=== PATIENT | male | born 1950 | race Caucasian/White ===

== ENCOUNTER 2019-09-25 08:30 | Outpatient (CLI) | payer MEDICARE, SELFPAY ==
--- NOTE | ~2019-09-25 | CT_ITS ---
EXAMINATION: CT soft tissue neck chest w EXAM DATE: 09/25/2019 09:13 INDICATION: Hodgkin's lymphoma. TECHNIQUE: Spiral CT of the neck and chest was performed following intravenous injection of 75 mL Omn ipaque 350. Axial, coronal and sagittal images of the neck were reviewed. Axial, coronal and sagitt al images of the chest were reviewed. Coronal maximum intensity pixel images of chest reviewed. The dose-length product (DLP) for this examination was 1219.38 mGy-cm. The exposure was tailored accord ing to patient size (auto mA exposure control), and iterative reconstruction (ASIR) was used as addit ional dose reduction technique. There is no prior study for comparison. FINDINGS: NECK: The thyroid gland is unremarkable. The submandibular and parotid glands are symmetric. The re is no cervical lymphadenopathy. There are no masses identified. The airway is unremarkable. Parapharyngeal and pre-glottic fat planes are preserved. The opacified vasculature is patent. There is mild bilateral carotid bulb arterial sclerosis without stenosis. The orbits are unremarkable. Small maxillary sinus mucous retention cysts. There is cervical spondylosis. CHEST: Ascending aortic aneurysm, measuring up to 5.2 cm, stable. Small regions of scarring. There ar e no pleural or pericardial effusions. Tracheobronchial tree is patent. There is development of e nlarged left-sided supraclavicular lymph node measuring 2.0 x 2.1 cm. There is left axillary lymphade nopathy, with largest node measuring 2.6 x 2.3 cm, not significantly changed, but there are several o ther left axillary lymph nodes which mildly larger than on prior study. There is a left subpectoral l ymph node measuring 2.0 x 1.8 cm (was 2.2 x 1.1). There is no pneumothorax. There is mild cardiome judi. There are dense coronary arteries, could be severe coronary arterial sclerosis and/or coronary artery stent(s), which are difficult to distinguish due to cardiac motion on this non-gated exam. Co rrelate with cardiac history and consider cardiology consult if not recently evaluated. Mild bronchie ctasis. Upper abdomen is unremarkable. Patient has diffuse idiopathic skeletal hyperostosis (DISH) . There are no osteoblastic or osteolytic lesions identified. There is a right-sided Chemo-Port. IMPRESSION: 1. Development of left supraclavicular lymphadenopathy. Mild progression in left axillary, subpector al lymphadenopathy. 2. No cervical lymphadenopathy. 3. Chronic findings. Reviewed, dictated and finalized at location B. IMPRESSION: 1. Development of left supraclavicular lymphadenopathy. Mild progression in le ft axillary, subpectoral lymphadenopathy. 2. No cervical lymphadenopathy. 3. Chronic findings.
[2019-09-25 09:07] LABS: Estimated Glomerular Filt Rate > 60
== END 2019-09-25 08:31 | disposition home or self-care (01) ==
LOC: ANHIMG 08:34
PROVIDERS: PCP Internal Medicine; Visit Provider Internal Medicine Hematology & Oncology
DX: C81.14 Nodular sclerosis Hodgkin lymphoma, lymph nodes of axilla and upper limb (principal)
CPT/HCPCS: 36415; 70491; 71260; Q9967

== ENCOUNTER 2019-11-09 10:45 | Outpatient (CLI) | payer MEDICARE, SELFPAY ==
--- NOTE | ~2019-11-09 | PE_ITS ---
EXAMINATION: PET skull to mid thigh DATE: 11/09/2019 12:27 INDICATION: Nodular sclerosis. Hodgkin's lymphoma. TECHNIQUE: Blood glucose level was 107 mg/dL. 9.947 mCi of 18-fluorodeoxyglucose (18-FDG) was adminis tered i.v. Low dose computed tomography (CT) images were acquired from the base of the brain to the p roximal thighs for attenuation correction and anatomic localization. Positron emission tomography (PE T) images were acquired in the same distribution beginning 50 minutes after injection. Images includi ng fused PET/CT images were reconstructed in axial, coronal, and sagittal planes. Automated exposure control technique was employed. The dose-length product was 754.46mGy-cm. COMPARISON: 06/06/2019 FINDINGS: Head/neck: There is symmetric increased activity in the nasal and oral cavities, parotid glands, submandibular glands, laryngeal muscles and ocular muscles without CT correlate, likely physiologic. No pathologica lly enlarged cervical lymphadenopathy or suspicious foci of increased FDG uptake in the visualized he ad or neck. Chest: Right internal jugular central venous port catheter with distal tip at the superior cavoatrial juncti on. Small calcified nodule in the left upper lobe consistent with old granulomatous disease. Elevatio n of the left hemidiaphragm with mild discoid atelectasis at the basilar left lower lobe. The prior s mall region of consolidation with mild increased FDG uptake in the anterobasilar segment of the right lower lobe has resolved. No suspicious pulmonary nodules, pneumonia, pulmonary edema or other pulmon janice infiltrates. Cardiomegaly. Atherosclerotic coronary artery calcification is. No pericardial or pl eural effusion. 5.9 x 5.6 cm fusiform ascending thoracic aortic aneurysm. Again seen are a few enlarg ed left axillary and subpectoral lymph nodes, the largest previously 3.1 x 2.2 cm left axillary lymph node has decreased slightly to 2.9 x 2.0 cm with decreased now negligible FDG activity with maximal SUV of 1.3 which remain significantly lower than that of liver with maximal SUV of 3.2. The largest l eft subpectoral lymph node has decreased from 2.0 x 1.2 cm to currently measuring 1.8 x 1.0 cm with s imilar negligible FDG uptake. No new, enlarging or abnormal FDG avid thoracic lymphadenopathy. Bilate ral gynecomastia. Abdomen/pelvis/proximal thighs: Physiologic renal accumulation and excretion of FDG activity in the kidneys, bladder and along portio ns of ureters. Bilateral low-attenuation renal cysts without FDG activity measuring up to 4.2 cm in m aximal diameter on the right and 4.8 cm of a bilobed cyst at the left kidney. Normal degree and heter ogenous pattern of increased uptake throughout the liver without radiologic correlate or dominant FDG avid lesion. Tiny high attenuation gallstones layering in the dependent aspect of the normal-appeari ng gallbladder. A few splenic calcifications consistent with old granulomatous disease. Pancreas and bilateral adrenal glands are normal. Mild scattered colonic diverticulosis without adjacent inflammat ory change to suggest diverticulitis. Mild uptake scattered throughout the bowels without radiologic correlate, also likely physiologic. Prostatomegaly. No other abnormal foci of increased FDG uptake or pathologically enlarged lymphadenopathy in the abdomen, pelvis or proximal thighs. Musculoskeletal: Right total hip arthroplasty. There are bridging osteophytes at multiple levels in the spine, consist ent with diffuse idiopathic skeletal hyperostosis (DISH). Now healed anterior right eighth rib fractu re. No suspicious lytic, blastic or FDG avid bone lesions. IMPRESSION: 1. Continued slight decrease in size and now negligible FDG activity associated with several enlarged left axillary and subpectoral lymph nodes consistent with treated lymphoma. 2. Resolution of prior airspace disease with mild FDG activity in the
[2019-11-09 11:01] LABS: Glucose Point of Care 107 (65-105)
== END 2019-11-09 10:46 | disposition home or self-care (01) ==
LOC: ANHIMG 10:49
PROVIDERS: PCP Internal Medicine; Visit Provider Internal Medicine Hematology & Oncology
DX: C81.14 Nodular sclerosis Hodgkin lymphoma, lymph nodes of axilla and upper limb (principal); I71.2 Thoracic aortic aneurysm, without rupture
CPT/HCPCS: 78815; A9552

== ENCOUNTER 2020-05-20 09:08 | Outpatient (CLI) | payer MEDICARE, SELFPAY ==
--- NOTE | ~2020-05-20 | CT_ITS ---
EXAMINATION: CT chest w con EXAM DATE: 05/20/2020 09:40 INDICATION: Hodgkin's lymphoma of the axilla. TECHNIQUE: Spiral CT of the chest following intravenous injection of 75 mL Omnipaque 350. Axial, cor onal and sagittal images were reviewed. Coronal maximum intensity pixel images of chest reviewed. T he dose-length product (DLP) for this examination was 213.89 mGy-cm. The exposure was tailored accor ding to patient size (auto mA exposure control), and iterative reconstruction (ASIR) was used as reddy tional dose reduction technique. Comparison is made to prior examination from 11/09/2019. FINDINGS: The lungs are clear. There are no pleural or pericardial effusions. Tracheobronchial t ree is patent. Left axillary, subpectoral lymph nodes again identified, largest today measuring 2.5 x 1.9 cm (previous largest node 2.7 x 2.0 cm). The ascending aorta at the arch is dilated at 5.3 cm, unchanged. There is no pneumothorax. Heart normal in size. There is moderate coronary arterial calcification, arterial sclerosis. Upper abdomen is unremarkable. Diffuse idiopathic skeletal hype rostosis. IMPRESSION: 1. Stable left axillary lymphadenopathy. 2. Stable aortic arch 5.3 cm aneurysm. Reviewed, dictated and finalized at location A. LIANCE TESTER
== END 2020-05-20 09:09 | disposition home or self-care (01) ==
PROVIDERS: PCP Internal Medicine; Visit Provider Internal Medicine Hematology & Oncology
DX: C81.14 Nodular sclerosis Hodgkin lymphoma, lymph nodes of axilla and upper limb (principal); I71.4 Abdominal aortic aneurysm, without rupture
CPT/HCPCS: 71260; Q9967

== ENCOUNTER 2020-09-05 11:14 | Outpatient (CLI) | payer MEDICARE, SELFPAY ==
--- NOTE | ~2020-09-05 | CT_ITS ---
EXAMINATION: CT brain wo con DATE: 09/05/2020 11:36 INDICATION: Slurred speech. TECHNIQUE: Computed tomography (CT) of the head was performed without intravenous contrast. The mA wa s adjusted according to patient size. Iterative reconstruction technique was employed. The dose-lengt h product was 605.33 mGy-cm. COMPARISON: None FINDINGS: There are scattered areas of low attenuation in the cerebral white matter, which is within normal limits for the patient's age. There is no intracranial hemorrhage, acute infarction, or abnorm al intracranial mass lesion. The ventricles are normal in size. There is mild mucosal thickening in t he paranasal sinuses. There are likely changes of ocular lens replacement surgeries. The mastoid air cells are normal. IMPRESSION: 1. Normal aging brain. Reviewed, dictated and finalized at location A. IMPRESSION: 1. Normal aging brain.
--- NOTE | ~2020-09-05 | US_ITS ---
EXAMINATION: US carotid duplex BI DATE: 09/05/2020 11:54 INDICATION: Speech deficit. Transient cerebral ischemic attack. TECHNIQUE: Grayscale, color Doppler, and pulsed Doppler images of the cervical carotid arteries were obtained. The degree of vessel stenosis is placed in one of the following categories: normal, <50%, 5 0-69%, >=70% but less than near-occlusion, near-occlusion, or total occlusion. Note that percent sten osis relative to normal distal artery lumen diameter is indirectly measured from velocity measurement s as described by Mario, et al. Radiology 2003; [id number]:340-346. COMPARISON: None. FINDINGS: RIGHT: The right common carotid artery (CCA) peak systolic velocity (PSV) is 109 cm/s. The right internal ca rotid artery (ICA) PSV is 67 cm/s. The right ICA end-diastolic velocity (EDV) is 19 cm/s. The right I CA/CCA PSV ratio is 0.6. Grayscale and color Doppler images yield an estimate of <50% diameter reduct ion from plaque in the ICA. There is antegrade flow in the right vertebral artery. LEFT: The left CCA PSV is 105 cm/s. The left ICA PSV is 52 cm/s. The left ICA EDV is 15 cm/s. The left ICA/ CCA PSV ratio is 0.6. Grayscale and color Doppler images yield an estimate of <50% diameter reduction from plaque in the ICA. There is antegrade flow in the left vertebral artery. IMPRESSION: 1. <50% stenosis in the right internal carotid artery. 2. <50% stenosis in the left internal carotid artery. Reviewed, dictated and finalized at location A.
== END 2020-09-05 11:15 | disposition home or self-care (01) ==
LOC: ANHIMG 11:15
PROVIDERS: PCP Internal Medicine; Visit Provider Internal Medicine
DX: I65.23 Occlusion and stenosis of bilateral carotid arteries (principal)
CPT/HCPCS: 70450; 93880

== ENCOUNTER → 2020-09-23 00:16 | Outpatient (CLI) | payer MEDICARE, SELFPAY ==
[2020-09-23 19:29] LABS: SARS-CoV-2 RNA PCR Negative
== END ==
PROVIDERS: PCP Internal Medicine; Visit Provider Internal Medicine Critical Care Medicine
DX: Z01.812 Encounter for preprocedural laboratory examination (principal); Z20.822 Contact with and (suspected) exposure to COVID-19
CPT/HCPCS: C9803; U0003; U0005

== ENCOUNTER 2020-09-25 09:12 | Outpatient (CLI) | payer MEDICARE, SELFPAY ==
--- NOTE | 2020-10-11 16:43 | WPDSLEEPSTUD ---
Sleep Study Date of Study: 09/25/20 Ordering Provider: Mike Yu MD Interpreting Physician: Yanci Rios MD Sleep Study Type: CPAP Titration Height: 1.8 m Weight: 81.647 kg Body Mass Index: 25.1 Neck Circumference (inches): 16 [place]: 16 Reason for Sleep Study He presents now for CPAP titration with history of sleep studies below: 06/10/2020 Home sleep test after 30 lb wt loss; AHI 7.7 with device left on 10 hours (decreases the AHI) lowest saturation 40%and 52 minutes below 88% saturation. 09/30/2016 - split night; severe JONAH with AHI 65.9, lowest saturation 79%, optimal pressure 12 cm 02/08/2001 - Basic nocturnal polysomnogram after he was on CPAP, and had lost 100 lb; RDI was 20, lowest sat 85% He has had JONAH prior to 2000 Sleep History Og Beaver is a 70 yo man with JONAH on CPAP, has lost 30 lb in the last year, wants to know if he still needs to use his CPAP. He does not like to use it. He does frequently snore but he does not know if he snores loudly because he lives alone. He does not awaken from sleep feeling short of breath, does not awake with heartburn, belching or coughing, and he does not have trouble sleeping with a cold. He does not wake up gasping for breath at night, does not have breathing problems at night observed by others and does not sweat excessively at night. He rarely notices his heart pounding at night. He does not fall asleep during the day, does not fall asleep involuntarily, and does not fall asleep while driving or while exerting physical effort. He does not have loss of muscle tone with strong emotion. He does not have daytime difficulties due to excessive sleepiness. He is currently retired. He does not feel paralyzed on waking or falling asleep. He rarely has vivid dreamlike scenes upon awakening or falling asleep. He is never afraid to go to sleep. He does not have nightmares. He rarely remembers his dreams. He frequently has racing thoughts, feelings of sadness and depression. He constantly feels anxiety. He does not have muscular tension. He rarely notices parts of his body jerking at night. He does not kick at night. He denies having crawling and aching feelings in his legs at night. He had never has leg pain during the night and does not have morning jaw pain he does not grind his teeth during sleep. He occasionally is bothered by pain during the day. He does not wake up at night due to pain. He occasionally wakes up feeling stiff in the morning. He does not wake up with sore or achy muscles or pain in the neck and spine. He has panic, memory problems, concentration difficulties, depression and he takes and acids regularly. Normal bedtime is midnight, falling asleep within 15 minutes, waking once to urinate. He stays awake for 5-10 minutes. He wakes the morning between 9 and 10:00 a.m.. Weekend schedule is the same. He does not take naps. He feels better in the evening compared to the morning. He often awakens feeling refreshed. Habits: He never smoked tobacco. No caffeine, alcohol, or recreational drugs. 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
[2020-10-11 16:45] VITALS: BMI 25.1
== END 2020-09-25 09:13 | disposition home or self-care (01) ==
LOC: ANHCSM 09:12
PROVIDERS: PCP Internal Medicine; Visit Provider Internal Medicine
DX: G47.33 Obstructive sleep apnea (adult) (pediatric) (principal); Z79.899 Other long term (current) drug therapy; Z79.82 Long term (current) use of aspirin
CPT/HCPCS: 95811

== ENCOUNTER 2021-02-07 08:28 | Outpatient (CLI) | payer MEDICARE, SELFPAY ==
--- NOTE | ~2021-02-07 | CT_ITS ---
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 Automated exposure control and iterative reconstruction technique were employed. Exam dose: 415.07 mGy-cm total exam DLP. COMPARISON: 05/20/2020 CT chest 04/12/2018 CTA chest FINDINGS: Right Port-A-Cath catheter tip in superior vena cava. Stable mild right subareolar soft tissue density on the right consistent with gynecomastia, present s nicole 04/12/2018. Ascending aortic aneurysm measuring up to 5.4 cm compared to approximately 5.1 cm on 04/12/2018. Extensive coronary artery calcification. Cardiomegaly. No pericardial or pleural effusion. No hilar or mediastinal mass lesion or lymphadenopathy. There are 2 prominent left axillary lymph nodes measuring up to 20 x 25 mm and 13 x 21 mm. There is d iminished left axillary lymphadenopathy since 04/12/2018, including diminished size and number of enl arged lymph nodes. The largest left axillary lymph node on 04/12/2018 measuring up to approximately 2 .3 x 3.4 cm. Minimal atelectasis at the lung bases. The lungs are clear of infiltrate or consolidation or pulmonar y mass lesion. Right foramen of [place] fat-containing hernia. Very small sliding hiatal hernia. Bilateral upper pole renal cysts. Normal morphology of the adrenal glands. Possible subtle small stones in the dependent aspect of the gallbladder. Diffuse idiopathic skeletal hyperostosis of the thoracic spine. Degenerative spurring of the cervical and lumbar spine. IMPRESSION: Improvement of left axillary lymphadenopathy since 04/12/2018 Ascending aortic aneurysm, measuring up to 5.4 cm currently compared to approximately 5.1 cm on 04/12 Reviewed, dictated and finalized at Location A. Reviewed, dictated and finalized at location A. IMPRESSION: Improvement of left axillary lymphadenopathy since 04/12/2018 Ascending aortic aneurysm, measuring up to 5.4 cm currently compared to approxi mately 5.1 cm on 04/12/2018
== END 2021-02-07 08:29 | disposition home or self-care (01) ==
PROVIDERS: PCP Internal Medicine; Visit Provider Internal Medicine Hematology & Oncology
DX: C81.14 Nodular sclerosis Hodgkin lymphoma, lymph nodes of axilla and upper limb (principal); I71.4 Abdominal aortic aneurysm, without rupture
CPT/HCPCS: 71260; Q9967

== ENCOUNTER 2021-07-07 09:01 | Outpatient (CLI) | payer MEDICARE, SELFPAY ==
--- NOTE | 2021-07-07 | ECG_ITS ---
Measurements Intervals [place] Rate: 100 P: IN: 0 QRS: -35 QRSD: 104 T: 46 QT: 370 QTc: 479 Interpretive Statements SINUS RHYTHM FREQUENT ATRIAL PREMATURE COMPLEXES BASELINE ARTIFACT- I, II, III, AVR, AVF, V6 ABNORMAL ECG Electronically Signed On 07-07-2021 9:46:45 [employer]NER by Aki Pacheco D.O.
--- NOTE | ~2021-07-07 | XR_ITS ---
EXAMINATION: XR chest 2V EXAM DATE: 07/07/2021 09:21 INDICATION: J40 - Bronchitis, not specified as acute or chronic . TECHNIQUE: Frontal and lateral projections of the chest obtained and reviewed. Comparison is made to prior examination from 02/13/2018. FINDINGS: There is cardiomegaly. Bibasilar pneumonia and/or atelectasis. Some chronic hyperinflation . Right-sided portacatheter. There are mild bony degenerative changes. IMPRESSION: 1. Patchy bibasilar atelectasis an/or pneumonia. 2. Cardiomegaly. Reviewed, dictated and finalized at location G. ME TAX MANAGER
== END 2021-07-07 09:02 | disposition home or self-care (01) ==
PROVIDERS: PCP Internal Medicine; Visit Provider Internal Medicine
DX: J40 Bronchitis, not specified as acute or chronic (principal); R91.8 Other nonspecific abnormal finding of lung field; I51.7 Cardiomegaly; R94.31 Abnormal electrocardiogram [ECG] [EKG]
CPT/HCPCS: 71046; 93005

== ENCOUNTER 2021-07-25 13:07 | Inpatient (IN) | payer MEDICARE, SELFPAY ==
[2021-07-25] VITALS (7 sets, daily range): BP systolic 119–131; BP diastolic 79–91; PULSE 77–97; RESP 12–22; TEMP 36.1–36.6; O2SAT 97–98; BMI 34.2
--- NOTE | ~2021-07-25 | XR_ITS ---
EXAMINATION: XR chest 1V portable DATE: 07/31/2021 05:50 INDICATION: Congestive heart failure TECHNIQUE: frontal view of the chest was obtained. COMPARISON: Chest radiograph dated 07/29/2021 FINDINGS: Right internal jugular central venous port catheter with distal tip in the midsuperior vena cava. Haz y opacities at the bilateral lower lung zones with indistinctness of the right costophrenic angle con sistent with small bilateral pleural effusions with associated basilar atelectasis versus pneumonia. No pulmonary edema or pneumothorax. Cardiomegaly. IMPRESSION: 1. Small bilateral pleural effusions with bibasilar atelectasis and/or pneumonia. 2. Cardiomegaly. Reviewed, dictated and finalized at location A. ICAL INFORMATICS SPECIALIST IMPRESSION: 1. Small bilateral pleural effusions with bibasilar atelectasis and/or pneumoni a. 2. Cardiomegaly.
--- NOTE | ~2021-07-25 | XR_ITS ---
EXAMINATION: XR chest 1V portable EXAM DATE: 07/29/2021 09:15 INDICATION: CHF TECHNIQUE: Portable AP frontal chest x-ray was obtained. Comparison is made to prior examination from 07/25/2021. FINDINGS: There is cardiomegaly and pulmonary vascular congestion. Small bilateral pleural effusions. Bibasilar atelectasis. Superimposed edema or pneumonia possible. Mid and upper lung zones are clear. Right-sided portacatheter. There are bony degenerative changes. IMPRESSION: Findings consistent with mild CHF exacerbation, stable or mild interval progression. Reviewed, dictated and finalized at location B. REPAIRER IMPRESSION: Findings consistent with mild CHF exacerbation, stable or mild int erval progression.
--- NOTE | ~2021-07-25 | XR_ITS ---
EXAMINATION: XR chest 2V DATE: 07/25/2021 15:02 INDICATION: Cough. Shortness of breath. TECHNIQUE: Frontal and lateral views of the chest were obtained. COMPARISON: Chest 2 views 07/07/21, chest CT 02/07/2021 FINDINGS: There are small pleural effusions. There are airspace opacities at the lung bases. A calcif ied left lung nodule is consistent with old granulomatous disease. No pneumothorax. Cardiomegaly is n oted. There is a right internal jugular port with tip in superior vena cava. IMPRESSION: 1. Airspace opacities at the lung bases, consistent with atelectasis versus pneumonia. 2. Worsened small pleural effusions. 3. Cardiomegaly. Reviewed, dictated and finalized at location E. UTER TYPESETTER IMPRESSION: 1. Airspace opacities at the lung bases, consistent with atelectasis versus pne umonia. 2. Worsened small pleural effusions. 3. Cardiomegaly.
--- NOTE | 2021-07-25 14:23 | ECG_ITS ---
Measurements Intervals [place] Rate: 94 P: [place]: 0 QRS: -51 QRSD: 105 T: -19 QT: 394 QTc: 494 Interpretive Statements SINUS RHYTHM FREQUENT ATRIAL PREMATURE COMPLEXES DELAYED PRECORDIAL R/S TRANSITION CONSIDER INFERIOR INFARCT, AGE INDETERMINATE BORDERLINE ST-T WAVE ABNORMALITY- LAT/HIGH LAT LEADS BASELINE ARTIFACT- I, II, III, AVL, AVF, V4-V6 ABNORMAL ECG Electronically Signed On 07-25-2021 15:25:14 [employer]NER by Aki Pacheco D.O.
--- NOTE | 2021-07-25 14:24 | ED.SOB ---
HPI - SOB/Dyspnea General Chief Complaint: Shortness of Breath/Dyspnea Stated Complaint: dyspnea and edema Time Seen by Provider: 07/25/21 14:17 Source: patient Mode of arrival: EMS Limitations: dementia History of Present Illness HPI Narrative: Patient is a 69-year-old male complaining of shortness of breath started a few days ago worse with exertion and accompanied by increasing bilateral lower extremity edema. Patient denies any chest pain, cough, abdominal pain, abdominal distention, nausea, vomiting, diaphoresis, fever or chills. Related Data Home Medications Medication Instructions Recorded Confirmed multivitamin 1 tablet PO DAILY 04/11/19 07/07/21 rivastigmine 1 patch TRANSDERMAL DAILY 09/06/20 07/07/21 cholecalciferol (vitamin D3) 50 50 mcg PO DAILY 03/12/21 07/07/21 mcg (2,000 unit) capsule vortioxetine 20 mg tablet 20 mg PO DAILY 03/12/21 07/07/21 memantine 28 mg capsule 28 mg PO DAILY 04/24/21 07/07/21 sprinkle,extended release 24hr Allergies Allergy/AdvReac Type Severity Reaction Status Date / Time apricot Allergy Severe throat Verified 07/07/21 08:29 SWELLING Review of Systems Review of Systems: All systems reviewed & are unremarkable except as noted in HPI and below Constitutional: Constitutional: Denies body ache(s), Denies chills, Denies excessive sweating, Denies fatigue, Denies fever(s), Denies headache(s), Denies lethargy, Denies malaise, Denies weakness and Denies weight loss Eyes: Eyes: Denies blurry vision, Denies change in vision and Denies loss of vision ENT: Denies dizziness, Denies ear discharge, Denies headache(s), Denies lip swelling, Denies epistaxis, Denies nasal congestion, Denies neck pain, Denies throat swelling and Denies tongue swelling Cardiovascular: Cardiovascular: Denies chest pain, Denies chest pain at rest, Denies chest pain with activity, Denies diaphoresis, Denies rapid heart rate, Denies edema, Denies irregular heart rhythm, Denies lightheadedness and Denies palpitations Respiratory: Respiratory: Denies chest congestion, Denies cough and Denies hemoptysis Gastrointestinal: Gastrointestinal: Denies abdominal pain, Denies melena, Denies hematochezia, Denies diarrhea, Denies nausea, Denies vomiting and Denies hematemesis Musculoskeletal: Musculoskeletal: Denies abnormal gait, Denies deformity, Denies joint swelling, Denies limited range of motion, Denies neck pain and Denies numbness Neurologic: Denies Abnormal speech present, Denies abnormal gait, Denies confusion, Denies dizziness, Denies headache(s), Denies focal weakness, Denies loss of vision, Denies numbness, Denies Other visual disturbances, Denies Sensory deficit (Neuro) and Denies weakness Psychiatric: Psychiatric: Denies confusion, Denies depression, Denies auditory hallucinations, Denies homicidal ideation and Denies suicidal ideation Endocrine: Endocrine: Denies cold intolerance, Denies excessive sweating, Denies fatigue, Denies heat intolerance and Denies palpitations Hematologic/Lymphatic: Hematologic/Lymphatic: Denies easy bleeding and Denies easy bruising Allergic/Immunologic: Allergic/Immunologic: Denies lip swelling, Denies throat swelling and Denies tongue swelling PMFSH Past Medical History Medical History Abdominal aortic aneurysm (AAA) without rupture Arthritis Cognitive decline Depression DVT (deep venous thrombosis) Encounter for routine adult health examination without abnormal findings Essential hypertension Gastroesophageal reflux disease without esophagitis GERD (gastroesophageal reflux disease) HTN (hypertension) Hypercholesterolemia 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
[2021-07-25 14:43] LABS: Basophils Absolute Auto 0.1 K/mm3 (0.0-0.1); Basophils Percent Auto 0.6 % (0.2-1.2); Eosinophils Absolute Auto 0.2 K/mm3 (0-0.3); Eosinophils Percent Auto 1.9 % (0-4.4); Hematocrit 39.3 % (42.0-52.0); Hemoglobin 12.2 g/dL (14.0-18.0); Immature Granulocyte Absolute 0.04 K/mm3 (0.00-0.031); Immature Granulocyte Percent A 0.5 % (0-0.5); Lymphocytes Absolute Auto 1.31 K/mm3 (0.9-3.2); Mean Corpuscular Hemoglobin 25.8 pg (26-34); Mean Corpuscular Volume 83.3 fl (80-100); Monocytes Absolute Auto 0.8 K/mm3 (0.1-0.6); Monocytes Percent Auto 8.9 % (2.6-8.5); Neutrophils Absolute Auto 6.4 K/mm3 (1.3-6.7); Neutrophils Percent Auto 73.1 % (45.5-73.1); Platelet Count Result 215 k/mm3 (150-375); Red Blood Count 4.72 M/mm3 (4.6-6.20); White Blood Count 8.8 K/mm3 (4.5-10.0)
[2021-07-25 14:51] LABS: INR 1.2; Prothrombin Time 14.8 Seconds (11.1-14.7)
[2021-07-25 14:53] LABS: Alanine Aminotransferase 65 U/L (4-50); Albumin Level 3.6 g/dL (3.5-5.1); Alkaline Phosphatase 97 U/L (38-126); Anion Gap 3 mmol/L (8-16); Aspartate Amino Transferase 44 U/L (17-59); Bilirubin,Total 1.2 mg/dL (0.2-1.3); Blood Urea Nitrogen 21 mg/dL (9-20); Calcium 8.5 mg/dL (8.4-10.2); Carbon Dioxide 26 mmol/L (22-30); Chloride 112 mmol/L (98-107); Estimated CRCL calculation 66 ml/min; Estimated Glomerular Filt Rate > 60; Glucose 89 mg/dL (65-110); Potassium 3.6 mmol/L (3.4-5.0); Sodium 141 mmol/L (137-145)
[2021-07-25 15:13] LABS: NT Pro B Type Natriuretic Pept 11300 pg/mL (5-100); Troponin I 0.058 ng/mL (0.000-0.034)
[2021-07-25] MEDS: FUROSEMIDE INJ 40 MG/4 ML VIAL IV PUSH (15:43)
[2021-07-25] MEDS: ASPIRIN 81 MG CHEWABLE TABLET 324 MG PO (15:43)
[2021-07-25 17:13] LABS: SARS-CoV-2 RNA PCR Negative
[2021-07-25 21:27] LABS: Troponin I 0.064 ng/mL (0.000-0.034)
--- NOTE | 2021-07-25 21:47 | PC.NURSE ---
This patient, Og Beaver, was admitted to Medical Room 343-01. Patient/family oriented to hospital policies and general routines including ID bracelet, bed and alarms, visiting hours, pain management, procedures, bathroom and other care routines, personal items, smoking policy, room service/diet, and visiting hours. Information on how to activate the Rapid Response Team has been discussed. Patient/Family are encouraged to report perceived risks to care and to ask questions if they do not understand what they are told or what they should do.
[2021-07-26] VITALS (16 sets, daily range): BP systolic 106–121; BP diastolic 78–83; PULSE 72–106; RESP 16–22; TEMP 35.8–37; O2SAT 92–97
--- NOTE | 2021-07-26 | ECHO_ITS ---
Patient Info Name: Og Beaver Age: 71 years : 1950 Gender: Male Ht: 71 in Wt: 245 lbs BSA: 2.40 m2 HR: 60 bpm BP: 121 / 83 mmHg Technical Quality: Fair Exam Date: 07/26/2021 11:58 AM Exam Location: [facility] Patient Status: Inpatient Admit Date: 07/25/2021 Staff Ordering Physician: Ignacia Cardenas MD Slackman: Juli Puckett RDCS Attending Provider: Susanne Choi PA-C Referring Physician: Theresa SHELTON; Exam Type: CA echo dop color flow w con Study Info Indications I50.20 - Unspecified systolic (congestive) heart failure Complete two-dimensional, color flow and Doppler transthoracic echocardiogram is performed with contrast to opacify the left ventricle and to improve the deliniation of the left ventricle endocardial borders. Contrast/Agitated Saline Contrast/Ag. Saline: Definity Amount: 5.00 ml Summary 1. Definity contrast was used. Mild LVH, mild to moderate LV enlargement; severe global LV systolic dysfunction, ejection fraction about 20-25%. Diastolic dysfunction is present. Moderate left atrial enlargement. Mild right atrial enlargement. Normal mitral valve structure, [id number] MR. Aortic valve is not well visualized, no significant stenosis by Doppler. Mild aortic regurgitation. Mild TR, mild pulmonary hypertension, RVSP 43 mmHg. Aortic root size is normal, however, ascending aorta is not well visualized. Patient is known to have ascending aortic aneurysm. Sinus rhythm. Left Ventricle Left ventricular chamber dimension is mildly enlarged. Left ventricular systolic function is severely reduced, estimated at 20-25%. There is mildly increased left ventricular wall thickness. The left ventricular diastolic function is abnormal. Right Ventricle Right ventricular chamber dimension is moderately enlarged. Right ventricular systolic function is reduced. Left Atria Left atrial chamber dimension is moderately enlarged. Right Atria Right atrial chamber dimension is mildly enlarged. Aortic Valve The aortic valve is not well visualized. There is no aortic valve stenosis. There is mild aortic valve regurgitation. Mitral Valve The mitral valve has normal leaflets. There is mild to moderate mitral valve regurgitation. Tricuspid Valve The tricuspid valve leaflets are normal. There is mild tricuspid valve regurgitation. Mild pulmonary hypertension, estimated pulmonary arterial systolic pressure is 43 mmHg. Inferior Vena Cava Dilated inferior vena cava with no collapse upon inspiration consistent with elevated right atrial pressure, 15 mmHg. Aorta The aortic root size at the sinus of Valsalva is normal. The prox ascending aorta size is dilated. Left Ventricular Outflow Tract Name Value Normal LVOT 2D LVOT Diameter 2.52 cm LVOT Doppler LVOT Peak Gradient 3 mmHg LVOT Mean Gradient 1 mmHg LVOT VTI 16.17 cm LVOT VTI/AV VTI Ratio 0.52 LVOT Stroke Volume 80.30 ml LVOT CO
--- NOTE | 2021-07-26 01:15 | PM.IMHP ---
H&P: HPI History of Present Illness Date/Time: 07/26/21 01:15 Chief Complaint: SHORTNESS OF BREATH Narrative: This is a 71-year-old male with past medical history significant for hypertension, arthritis, the vent from [place], gastroesophageal reflux disease, abdominal aortic aneurysm, obstructive sleep apnea, Hodgkin lymphoma, hypercholesterolemia. Patient presented to emergency room with complaints of shortness of breath that has progressively gotten worse in the last 2 weeks or so now is present at rest, patient denies any chest pain, any cough ,any sputum production, no night sweats ,no fevers ,no rigors, no chills, no nausea, no vomiting ,no abdominal pain, no diarrhea, no calves pain, no syncope no near-syncope no lightheadedness no dizziness patient denies any changes to his appetite. Preliminary workup was significant for chest x-ray with opacities and a brain natriuretic peptide of 11,300 and troponins x3 were elevated. Patient has been admitted for further evaluation management and treatment. Review of Systems Review of Systems: Shortness of breath. Constitutional: Constitutional: Denies chills, Denies fatigue, Denies fever(s), Denies malaise, Denies night sweats and Denies weakness Eyes: Eyes: Denies change in vision ENT: Denies dysphagia, Denies nasal congestion, Denies nasal discharge, Denies nasal obstruction and Denies odynophagia Cardiovascular: Cardiovascular: Denies chest pain, Denies chest pain with activity, Denies pedal edema, Denies edema, Denies irregular heart rhythm, Denies claudication, Denies leg edema, Denies lightheadedness, Denies radiating jaw, neck or arm pain, Denies palpitations, Denies dyspnea on exertion, Denies orthopnea and Denies paroxysmal nocturnal dyspnea Respiratory: Respiratory: Denies cough, Denies excessive phlegm production and Denies wheezing Gastrointestinal: Gastrointestinal: Denies abdominal pain, Denies dyspepsia, Denies nausea and Denies vomiting Genitourinary: Genitourinary: Denies dysuria and Denies flank pain Musculoskeletal: Musculoskeletal: Denies back pain, Denies myalgias, Denies arthralgias and Denies joint swelling Integumentary/Breasts: Skin/Breast: Denies rash Neurologic: Denies dizziness, Denies syncope, Denies focal weakness and Denies Sensory deficit (Neuro) Psychiatric: Psychiatric: Reports no additional psychiatric complaints and Reports as per HPI Endocrine: Endocrine: Denies cold intolerance, Denies excessive sweating, Denies heat intolerance, Denies polyphagia, Denies polydipsia, Denies polyuria and Denies palpitations Hematologic/Lymphatic: Hematologic/Lymphatic: Reports no additional hematologic/lymphatic complaints and Reports as per HPI Allergic/Immunologic: Allergic/Immunologic: Reports no additional allergic/immunologic complaints and Reports as per HPI [facility] Past Medical History Medical History Abdominal aortic aneurysm (AAA) without rupture Arthritis Cognitive decline Depression DVT (deep venous thrombosis) Encounter for routine adult health examination without abnormal findings Essential hypertension Gastroesophageal reflux disease without esophagitis GERD (gastroesophageal reflux disease) HTN (hypertension) Hypercholesterolemia 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
[2021-07-26] MEDS: cefTRIAXone 2 GM in SODIUM CHLORIDE 0.9% IV 100 ML 200 ML IVPB (06:05)
[2021-07-26] MEDS: LANSOPRAZOLE ORAL SUSP 30 MG/10 ML ORAL.SUSP PO (06:40)
[2021-07-26 08:38] LABS: Anion Gap 7 mmol/L (8-16); Blood Urea Nitrogen 20 mg/dL (9-20); Calcium 8.5 mg/dL (8.4-10.2); Carbon Dioxide 25 mmol/L (22-30); Chloride 110 mmol/L (98-107); Estimated CRCL calculation 68 ml/min; Estimated Glomerular Filt Rate > 60; Glucose 117 mg/dL (65-110); Magnesium 1.6 mg/dL (1.6-2.3); Potassium 3.4 mmol/L (3.4-5.0); Sodium 142 mmol/L (137-145)
--- NOTE | 2021-07-26 09:02 | PM.IMPN ---
Progress Note: A&P Assessment and Plan (1) Acute CHF: Qualifiers: Heart failure type: unspecified Qualified Code(s): I50.9 - Heart failure, unspecified Code(s): I50.9 - Heart failure, unspecified Status: Acute Assessment and Plan: Patient is a 71-year-old man with a history of hypertension, short-term memory loss, aortic arch aneurysm, Hodgkin's lymphoma, who presented to the emergency room with gradually worsening shortness of breath and leg swelling. Initial vitals showed blood pressure 127/88, heart rate 96, slight increased respiratory rate 22, 97% on room air, afebrile. Initial labs showed normocytic anemia with hemoglobin of 12, hematocrit 39%. INR normal 0.2. Creatinine 1.3, BUN 21, potassium 3.6, slight elevation ALT at 65. Troponin elevated 0.058-0.064. BNP 48164. COVID PCR negative. Chest x-ray on arrival showed airspace opacities at the lung bases, consistent with atelectasis versus pneumonia. Worsened small pleural effusions. Patient was admitted into the hospital for possible pneumonia with IV antibiotics and possible fluid overload with further cardiac workup and cardiology consultation. Patient was started on IV Lasix 40 mg b.i.d. His placed on a fluid restriction Echocardiogram pending Cardiology was consulted and their input is greatly appreciated. Continue monitoring renal function, electrolytes and urine output with diuresis (2) Elevated troponin: Code(s): R77.8 - Other specified abnormalities of plasma proteins Status: Acute Assessment and Plan: Patient denies any Chest pain. Patient with coronary artery disease equivalent Head elevated troponin which could be related to possible congestive heart failure exacerbation Cardiology was consulted and their input is greatly appreciated (3) Irregular cardiac rhythm: Code(s): I49.9 - Cardiac arrhythmia, unspecified Status: Acute Assessment and Plan: Tele shows NSR rate 95 bpm, with frequent PACs and possible irregular rhythm with Afib vs frequent PACs causing irregularlity, difficult to determine. Appreciate Cardiology input on Tele monitor to rule out Afib/Flutter. (4) Thoracic ascending aortic aneurysm: Code(s): I71.2 - Thoracic aortic aneurysm, without rupture Status: Acute Assessment and Plan: Continue beta-blockers Continue outpatient monitoring (5) HTN (hypertension): Qualifiers: Hypertension type: essential hypertension Qualified Code(s): I10 - Essential (primary) hypertension Code(s): I10 - Essential (primary) hypertension Status: Acute Assessment and Plan: Blood pressure stable 121/83. 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 (9) Anxiety: Code(s): F41.9 - Anxiety disorder, unspecified Status: Acute Assessment and Plan: Patient reports in increased anxiety last few months and he is unsure why. Currently it could be due to hospitalization versus shortness
[2021-07-26] MEDS: ROSUVASTATIN 10 MG TABLET 20 MG PO (09:15)
[2021-07-26] MEDS: MULTIVITAMINS THERAPEUTIC TAB (*BKC) 1 TABLET PO (09:15)
[2021-07-26] MEDS: MIRTAZAPINE 15 MG TABLET PO (09:15)
[2021-07-26] MEDS: METOPROLOL SUCCINATE EXT REL 25 MG TABCR PO (09:16)
[2021-07-26] MEDS: POTASSIUM CHLORIDE 20 MEQ TABLET 40 MEQ PO ×2 (09:16→18:04)
[2021-07-26] MEDS: CYANOCOBALAMIN 250 MCG TABLET PO (09:16)
[2021-07-26] MEDS: FOLIC ACID 1 MG TABLET PO (09:16)
[2021-07-26] MEDS: CLOPIDOGREL BISULFATE 75 MG TABLET PO (09:16)
[2021-07-26] MEDS: ASPIRIN 81 MG ENTERIC TABLET PO (09:16)
[2021-07-26] MEDS: lisinopriL 10 MG TABLET PO (09:17)
[2021-07-26] MEDS: ENOXAPARIN 40 MG/0.4 ML SYRINGE SUB-Q (09:17)
[2021-07-26] MEDS: POLYSACCHARIDE IRON COMPLEX 150 MG CAPSULE PO ×2 (09:17→18:04)
[2021-07-26] MEDS: FUROSEMIDE INJ 40 MG/4 ML VIAL IV PUSH ×2 (09:17→18:04)
[2021-07-26] MEDS: busPIRone HCL 5 MG TABLET PO ×2 (10:15→20:47)
[2021-07-26] MEDS: PERFLUTREN LIPID MICROSPHERES 1.5 ML VIAL DILUTED TO 10 ML TOTAL VOLUME IV PUSH (12:51)
--- NOTE | 2021-07-26 12:52 | IVDEFINITY ---
Prior to administration of IV Definity the patient was educated on the risks and benefits of the imaging enhancing agent including potential adverse side effects. The patient verbalized understanding. Allergies were verified. No exclusion criteria were identified and at least one of the following inclusion criteria were met: 1) physician request, 2) patient technically difficult to image (per the [place] [employer]ocardi[employer] guidelines of two or more segments not discernable within the apical view), or 3) questionable left ventricular function. ?
[2021-07-26] MEDS: MAGNESIUM SULF 2 GM/WATER 50ML 2 GM/50 ML BAG IVPB (13:21)
--- NOTE | 2021-07-26 13:22 | PM.CNCAR ---
Assessment and Plan Assessment and plan (1) Acute CHF: Qualifiers: Heart failure type: unspecified Qualified Code(s): I50.9 - Heart failure, unspecified Code(s): I50.9 - Heart failure, unspecified Status: Acute Assessment and Plan: 71-year-old male with CHF with preserved ejection fraction based on 09/09/2017 echo; ascending aortic aneurysm (CT chest from 02/07/2021 showed ascending aortic aneurysm, measuring up to 5.4 cm compared to approximately 5.1 cm on 04/12/2018 study) hypertension, Hodgkin's lymphoma status post chemotherapy, JONAH , dyslipidemia. Patient admitted to the hospital with progressive worsening shortness of breath. He is currently in congestive heart failure. Troponins are minimally elevated and essentially flat, likely non ACS in the setting of CHF. -echo with Doppler is pending to assess LV systolic and diastolic function. -diuresis with IV furosemide, changed to p.o. furosemide mean 1 status change. Monitor electrolytes and renal function closely. Supplement potassium as necessary. -continue metoprolol succinate, lisinopril. -further cardiac testing to be determined based on clinical course and echo findings. (2) Thoracic aortic aneurysm without rupture: Code(s): I71.2 - Thoracic aortic aneurysm, without rupture Status: Acute Assessment and Plan: Patient has ascending aortic aneurysm with CT scan of the chest from 02/07/2021 showing aneurysm measuring up to 5.4 cm. Patient is approaching elective repair of the aneurysm. This will be managed as an outpatient. His candidacy for surgery will need to be determined due to his other comorbidities, including prognosis from Hodgkin lymphoma. At this time, strict blood pressure control is recommended. Try to maintain systolic blood pressure between 105-120 mmHg. Increase metoprolol succinate dose to 50 mg p.o. daily. Continue BUDDY-inhibitor. (3) PAC (premature atrial contraction): Code(s): I49.1 - Atrial premature depolarization Status: Acute Assessment and Plan: Frequent PACs. Continue to monitor. Continue beta-sarika. History of Present Illness History of Present Illness Consult date/time: 07/26/21 13:22 DATE OF CONSULT: 07/26/2021 REASON FOR CONSULT: Acute CHF REQUESTING PHYSICIAN:Gonzalez Major MD CHIEF COMPLAINT: Shortness of breath, leg swelling HPI: 71-year-old male with CHF with preserved ejection fraction based on 09/09/2017 echo; ascending aortic aneurysm (CT chest from 02/07/2021 showed ascending aortic aneurysm, measuring up to 5.4 cm compared to approximately 5.1 cm on 04/12/2018 study) hypertension, Hodgkin's lymphoma status post chemotherapy, JONAH , dyslipidemia. Patient presented to [facility] Emergency Room on 07/25/2021 with complaints of shortness of breath and lower extremity swelling. Patient states that he has been experiencing progressively worsening dyspnea on exertion for last few weeks. Patient does not recall the exact time. He has been short of breath at rest with PND and orthopnea. He denies chest pain, palpitation, dizziness or syncope. Patient denies any known prior cardiac history. He states that he has had hypertension for many years and does not recall it being uncontrolled. Patient has history of Hodgkin lymphoma, and status post chemotherapy. He states that he follows up with Hematology-Oncology, but does not remember the name of the lens assorter. He states that his Hodgkin's lymphoma is in remission. COVID-19 negative. EKG on my personal evaluation showed sinus rhythm, frequent PACs, old inferior infarct. Serial troponins minimally elevated and [place] [id number]. Chest x-ray shows airspace opacities at the lung bases, consistent with atelectasis versus pneumonia; worsened small pleural effusions, cardiomegaly. Previous echo from 09/09/2017 reportedly showed mild LVH, EF 55-60%, grade [address] scan of the chest fro
[2021-07-26] MEDS: ALBUTEROL SULFATE NEB 2.5 MG/0.5 ML INH INHALATION ×2 (14:40→21:30)
[2021-07-26] MEDS: IPRATROPIUM BR 0.02% INH SOLN 0.5 MG/2.5 ML VIAL INHALATION ×2 (14:40→21:30)
[2021-07-27] VITALS (18 sets, daily range): BP systolic 102–120; BP diastolic 67–82; PULSE 65–101; RESP 16–20; TEMP 36.1–36.6; O2SAT 94–99
[2021-07-27] MEDS: IPRATROPIUM BR 0.02% INH SOLN 0.5 MG/2.5 ML VIAL INHALATION ×4 (03:04→20:20)
[2021-07-27] MEDS: ALBUTEROL SULFATE NEB 2.5 MG/0.5 ML INH INHALATION ×4 (03:05→20:20)
[2021-07-27] MEDS: cefTRIAXone 2 GM in SODIUM CHLORIDE 0.9% IV 100 ML 200 ML IVPB (05:12)
[2021-07-27] MEDS: LANSOPRAZOLE ORAL SUSP 30 MG/10 ML ORAL.SUSP PO (05:56)
[2021-07-27 06:32] LABS: Anion Gap 4 mmol/L (8-16); Blood Urea Nitrogen 19 mg/dL (9-20); Calcium 8.2 mg/dL (8.4-10.2); Carbon Dioxide 26 mmol/L (22-30); Chloride 111 mmol/L (98-107); Estimated CRCL calculation 68 ml/min; Estimated Glomerular Filt Rate > 60; Glucose 120 mg/dL (65-110); Magnesium 1.9 mg/dL (1.6-2.3); Potassium 3.2 mmol/L (3.4-5.0); Sodium 141 mmol/L (137-145)
[2021-07-27] MEDS: FUROSEMIDE INJ 40 MG/4 ML VIAL IV PUSH ×2 (09:24→16:58)
[2021-07-27] MEDS: CYANOCOBALAMIN 250 MCG TABLET PO (09:25)
[2021-07-27] MEDS: POTASSIUM CHLORIDE 20 MEQ TABLET 40 MEQ PO (09:25)
[2021-07-27] MEDS: ASPIRIN 81 MG ENTERIC TABLET PO (09:26)
[2021-07-27] MEDS: CLOPIDOGREL BISULFATE 75 MG TABLET PO (09:26)
[2021-07-27] MEDS: MIRTAZAPINE 15 MG TABLET PO (09:26)
[2021-07-27] MEDS: ROSUVASTATIN 10 MG TABLET 20 MG PO (09:26)
[2021-07-27] MEDS: METOPROLOL SUCCINATE EXT REL 50 MG TABCR PO (09:26)
[2021-07-27] MEDS: busPIRone HCL 5 MG TABLET PO ×2 (09:26→20:07)
[2021-07-27] MEDS: FOLIC ACID 1 MG TABLET PO (09:26)
[2021-07-27] MEDS: POLYSACCHARIDE IRON COMPLEX 150 MG CAPSULE PO ×2 (09:26→16:58)
[2021-07-27] MEDS: ENOXAPARIN 40 MG/0.4 ML SYRINGE SUB-Q (09:27)
[2021-07-27] MEDS: MULTIVITAMINS THERAPEUTIC TAB (*BKC) 1 TABLET PO (09:27)
[2021-07-27] MEDS: MAGNESIUM SULF 2 GM/WATER 50ML 2 GM/50 ML BAG IVPB (09:27)
[2021-07-27] MEDS: lisinopriL 10 MG TABLET PO (09:27)
--- NOTE | 2021-07-27 10:04 | PM.PNCARD ---
Progress Note: A&P Assessment and Plan (1) Acute CHF: Qualifiers: Heart failure type: unspecified Qualified Code(s): I50.9 - Heart failure, unspecified Code(s): I50.9 - Heart failure, unspecified Status: Acute Assessment and Plan: 71-year-old male with CHF with severely reduced ejection fraction on current echo; ascending aortic aneurysm (CT chest from 02/07/2021 showed ascending aortic aneurysm, measuring up to 5.4 cm compared to approximately 5.1 cm on 04/12/2018 study) hypertension, Hodgkin's lymphoma status post chemotherapy, JONAH , dyslipidemia. Patient admitted to the hospital with progressive worsening shortness of breath. He is currently in congestive heart failure. Troponins are minimally elevated and essentially flat, likely non ACS in the setting of CHF. Echo which I personally evaluated showed severe global LV systolic dysfunction, ejection fraction 20-25%, [id number] MR. Possible etiologies for LV dysfunction include coronary artery disease, poorly-controlled hypertension, untreated obstructive sleep apnea. -continue diuresis with IV furosemide, change to p.o. furosemide when volume status improves. Monitor electrolytes and renal function closely. Supplement potassium as necessary. -optimal, tolerable guideline directed medical treatment for CHF with reduced ejection fraction will be initiated. Continue metoprolol succinate. Change lisinopril to losartan with goal to change losartan to sacubitril/valsartan (Entresto) in next couple of days, or at the time of discharge. Add SGLT2 inhibitor. -will consider ischemic evaluation as an outpatient. -external wearable defibrillator-LifeVest at discharge. Orders entered into the EMR. -discussed echo findings with the patient and treatment plan. (2) Thoracic aortic aneurysm without rupture: Code(s): I71.2 - Thoracic aortic aneurysm, without rupture Status: Acute Assessment and Plan: Patient has ascending aortic aneurysm with CT scan of the chest from 02/07/2021 showing aneurysm measuring up to 5.4 cm. Patient is approaching elective repair of the aneurysm. This will be managed as an outpatient. His candidacy for surgery will need to be addressed as an outpatient in collaboration with CT surgery due to his other comorbidities, including prognosis from Hodgkin lymphoma, and newly diagnosed CHF with severely reduced ejection fraction. At this time, strict blood pressure control is recommended. Try to maintain systolic blood pressure between 105-120 mmHg. Metoprolol succinate dose increased. (3) PAC (premature atrial contraction): Code(s): I49.1 - Atrial premature depolarization Status: Acute Assessment and Plan: Frequent PACs on telemetry. Continue to monitor for any other arrhythmias. Continue beta-sarika. (4) JONAH (obstructive sleep apnea): Code(s): G47.33 - Obstructive sleep apnea (adult) (pediatric) Status: Acute Assessment and Plan: Patient has not been compliant with CPAP. Recommend evaluation by sleep specialist for optimal treatment of obstructive sleep apnea. Untreated JONAH can cause and/or contribute to adverse cardiovascular events. Subjective Date/time seen: 07/27/21 10:04 Date of service: 07/27/2021 Interval history: Patient reports minimal improvement in his shortness of breath. He still has lower extremity swelling although there is some improvement. Denies chest pain, palpitation, dizziness or syncope. On telemetry, patient has been in sinus rhythm with frequent PACs and occasional PVCs. Exam Narrative: PHYSICAL EXAMINATION: GENERAL: Alert, oriented, no acute distress MENTAL STATUS: affect appropriate to mood EYES: Extraocular movements intact, no pallor EARS: External ears appear normal, hearing grossly normal NOSE: Normal and patent, no discharge MOUTH: Mucous membranes moist, tongue normal NECK: Supple, no JVD CHEST: Scattered crackles HEART: Normal rate,
--- NOTE | 2021-07-27 10:22 | PM.IMPN ---
Progress Note: A&P Assessment and Plan (1) Acute CHF: Qualifiers: Heart failure type: unspecified Qualified Code(s): I50.9 - Heart failure, unspecified Code(s): I50.9 - Heart failure, unspecified Status: Acute Assessment and Plan: Acute systolic and diastolic CHF exacerbation Patient is a 71-year-old man with a history of hypertension, short-term memory loss, aortic arch aneurysm, Hodgkin's lymphoma, who presented to the emergency room with gradually worsening shortness of breath and leg swelling. Initial vitals showed blood pressure 127/88, heart rate 96, slight increased respiratory rate 22, 97% on room air, afebrile. Initial labs showed normocytic anemia with hemoglobin of 12, hematocrit 39%. INR normal 0.2. Creatinine 1.3, BUN 21, potassium 3.6, slight elevation ALT at 65. Troponin elevated 0.058-0.064. BNP 40212. COVID PCR negative. Chest x-ray on arrival showed airspace opacities at the lung bases, consistent with atelectasis versus pneumonia. Worsened small pleural effusions. Patient was admitted into the hospital for possible pneumonia with IV antibiotics and possible fluid overload with further cardiac workup and cardiology consultation. Patient was started on IV Lasix 40 mg b.i.d. His placed on a fluid restriction Echocardiogram showing Mild LVH, mild to moderate LV enlargement; severe global LV systolic dysfunction, ejection fraction about 20-25%. Diastolic dysfunction is present. Moderate left atrial enlargement. Mild right atrial enlargement. Normal mitral valve structure, [id number] MR. Aortic valve is not well visualized, no significant stenosis by Doppler. Mild aortic regurgitation. Mild TR, mild pulmonary hypertension, RVSP 43 mmHg. Aortic root size is normal, however, ascending aorta is not well visualized. Cardiology was consulted and is making medication adjustments given his systoic dysfunction: Metoprolol Succinate increased to 50 mg QD, Spironolactone 25 mg QD, Losartan 25 mg QD, and Jardiance. Plans to hopefully get the patient switched to PO Entresto prior/at discharge. Patient will need LifeVest upon discharge cardiology reports need for ischemic work up as outpatient Continue monitoring renal function, electrolytes and urine output with diuresis (2) Elevated troponin: Code(s): R77.8 - Other specified abnormalities of plasma proteins Status: Acute Assessment and Plan: Patient denies any Chest pain. Patient with coronary artery disease equivalent Head elevated troponin which could be related to possible congestive heart failure exacerbation Cardiology was consulted and their input is greatly appreciated (3) Irregular cardiac rhythm: Code(s): I49.9 - Cardiac arrhythmia, unspecified Status: Acute Assessment and Plan: Tele shows NSR rate 98 bpm, with frequent PACs and possible irregular rhythm with Afib vs frequent PACs causing irregularity, difficult to determine. Appreciate Cardiology input on Tele monitor to rule out Afib/Flutter. (4) Thoracic ascending aortic aneurysm: Code(s): I71.2 - Thoracic aortic aneurysm, without rupture Status: Acute Assessment and Plan: Continue beta-blockers Continue outpatient monitoring (5) HTN (hypertension): Qualifiers: Hypertension type: essential hypertension Qualified Code(s): I10 - Essential (primary) hypertension Code(s): I10 - Essential (primary) hypertension Status: Acute Assessment and Plan: Blood pressure stable 102/67. Resume home meds Continue to monitor (6) JONAH (obstructive sleep apnea): Code(s): G47.33 - Obstructive sleep apnea (adult) (pediatric) Status: Acute Assessme
[2021-07-27] MEDS: LOSARTAN POTASSIUM 25 MG TABLET PO (12:16)
[2021-07-27] MEDS: EMPAGLIFLOZIN 10 MG TABLET PO (12:16)
[2021-07-27] MEDS: POTASSIUM CHLORIDE 20 MEQ TABLET.ER PO (16:58)
[2021-07-28] VITALS (19 sets, daily range): BP systolic 101–126; BP diastolic 58–74; PULSE 65–102; RESP 18; TEMP 35.9–36.5; O2SAT 93–98
[2021-07-28] MEDS: IPRATROPIUM BR 0.02% INH SOLN 0.5 MG/2.5 ML VIAL INHALATION ×4 (02:12→20:15)
[2021-07-28] MEDS: ALBUTEROL SULFATE NEB 2.5 MG/0.5 ML INH INHALATION ×4 (02:12→20:15)
[2021-07-28] MEDS: cefTRIAXone 2 GM in SODIUM CHLORIDE 0.9% IV 100 ML 150 ML IVPB (05:05)
[2021-07-28] MEDS: LANSOPRAZOLE ORAL SUSP 30 MG/10 ML ORAL.SUSP PO (05:06)
[2021-07-28 06:38] LABS: Anion Gap 6 mmol/L (8-16); Blood Urea Nitrogen 19 mg/dL (9-20); Calcium 7.7 mg/dL (8.4-10.2); Carbon Dioxide 26 mmol/L (22-30); Chloride 109 mmol/L (98-107); Estimated CRCL calculation 75 ml/min; Estimated Glomerular Filt Rate > 60; Glucose 106 mg/dL (65-110); Potassium 3.2 mmol/L (3.4-5.0); Sodium 141 mmol/L (137-145)
[2021-07-28] MEDS: EMPAGLIFLOZIN 10 MG TABLET PO (09:23)
[2021-07-28] MEDS: MIRTAZAPINE 15 MG TABLET PO (09:23)
[2021-07-28] MEDS: POLYSACCHARIDE IRON COMPLEX 150 MG CAPSULE PO ×2 (09:23→17:01)
[2021-07-28] MEDS: POTASSIUM CHLORIDE 20 MEQ TABLET 40 MEQ PO (09:23)
[2021-07-28] MEDS: CYANOCOBALAMIN 250 MCG TABLET PO (09:23)
[2021-07-28] MEDS: CLOPIDOGREL BISULFATE 75 MG TABLET PO (09:23)
[2021-07-28] MEDS: SPIRONOLACTONE 25 MG TABLET PO (09:23)
[2021-07-28] MEDS: METOPROLOL SUCCINATE EXT REL 50 MG TABCR PO (09:24)
[2021-07-28] MEDS: busPIRone HCL 5 MG TABLET PO ×2 (09:24→20:26)
[2021-07-28] MEDS: POTASSIUM CHLORIDE 20 MEQ TABLET.ER PO ×2 (09:24→17:01)
[2021-07-28] MEDS: FOLIC ACID 1 MG TABLET PO (09:24)
[2021-07-28] MEDS: LOSARTAN POTASSIUM 25 MG TABLET PO (09:24)
[2021-07-28] MEDS: ASPIRIN 81 MG ENTERIC TABLET PO (09:24)
[2021-07-28] MEDS: MULTIVITAMINS THERAPEUTIC TAB (*BKC) 1 TABLET PO (09:25)
[2021-07-28] MEDS: ENOXAPARIN 40 MG/0.4 ML SYRINGE SUB-Q (09:25)
[2021-07-28] MEDS: FUROSEMIDE INJ 40 MG/4 ML VIAL IV PUSH ×2 (09:25→17:01)
[2021-07-28] MEDS: ROSUVASTATIN 10 MG TABLET 20 MG PO (09:25)
--- NOTE | 2021-07-28 11:01 | PM.PNCARD ---
Progress Note: A&P Additional Plan 71-year-old man with: Newly diagnosed dilated cardiomyopathy. Patient is coming into a state of euvolemia. Current dosage of furosemide will be continued for another 24-48 hours. Anticipate discharge at in the next day or 2. Follow-up may be challenging given his memory deficit. Yolande carlisle will be seeing him today Wade Mccarty MD [facility] Subjective Date/time seen: Date of service:07/28/21 11:01 Interval history: Follow-up visit in this 71-year-old man with: Newly diagnosed dilated cardiomyopathy with decompensated biventricular CHF. Patient has recent history of a lymphoma treated with chemotherapy as well as longstanding short-term memory loss which began couple of decades ago and was never specifically diagnosed in terms of etiology patient has no significant cardiovascular complaints today. Continues to experience frequent urination with furosemide dosage is. Asking questions about how long he will likely be hospitalized. Obvious short-term memory deficit he does not understand some of the conversation several minutes after we discussed this in detail. Exam Const: General: comfortable and no acute distress HENMT: Mouth: Yes moist mucous membranes Eyes: Sclera: sclerae normal Pupils: Equal, round and reactive pupils present Neck: Neck: supple Other: No significant JVD at this time normal carotid pulses Resp: Effort & Inspection: normal respiratory effort Auscultation: clear to auscultation bilaterally Cardio: Rate: regular rate Rhythm: regular rhythm Other: PMI difficult to palpate no obvious murmur or gallop GI: GI Palp: Yes Soft to palpation Auscultation: normal bowel sounds Skin: General skin exam: normal color Neuro: Cognition (Neuro): abnormal cognition Other: short-term memory deficit Extrem: Other: moderate symmetrical pitting edema persists Objective Data Vital Signs Vital Signs: Vital Signs - 24 hr 07/27/21 12:00 07/27/21 14:00 07/27/21 14:09 Temperature 36.6 C Pulse Rate 97 90 88 Respiratory Rate 18 18 Blood Pressure 108/74 Pulse Oximetry 99 07/27/21 14:22 07/27/21 16:00 07/27/21 20:00 Temperature Pulse Rate 92 97 91 Respiratory Rate 18 18 Blood Pressure Pulse Oximetry 96 07/27/21 20:20 07/27/21 20:35 07/27/21 22:00 Temperature 36.6 C Pulse Rate 93 91 81 Respiratory Rate 18 18 18 Blood Pressure 120/82 Pulse Oximetry 96 95 07/28/21 00:00 07/28/21 02:13 07/28/21 02:22 Temperature Pulse Rate 102 H 74 78 Respiratory Rate 18 18 Blood Pressure Pulse Oximetry 07/28/21 04:00 07/28/21 06:00 07/28/21 08:50 Temperature 36.5 C Pulse Rate 82 75 98 Respiratory Rate 18 18 Blood Pressure 126/74 Pulse Oximetry 93 07/28/21 08:53 07/28/21 08:59 07/28/21 09:24 Temperature Pulse Rate 95 98 Respiratory Rate 18 Blood Pressure Pulse Oximetry 95 Intake/Output Intake/Output: Intake & Output 07/25/21 07/26/21 07/27/21 07/28/21 23:59 23:59 23:59 23:59 Intake Total 1570 815 695 Balance 1570 815 695 Meds/Results Medications: Active Medications Generic Name Dose Route Start Last Admin Trade Name Freq PRN Reason Stop Dose Admin Albuterol 2.5 mg 07/26/21 14:00 07/28/21 08:50 Albuterol Sulfate Neb 2.5 Mg/0.5 Ml Inh INHALATION 2.5 mg Q6HRT ANGELICA Administration Aspirin 81 mg 07/26/21 09:00 07/28/21 09:24 Aspirin 81 Mg Enteric Tablet PO 81 mg DAILY ANGELICA Administration Buspirone HCl 5 mg 07/26/21 09:05 07/28/21 09:24 Buspirone Hcl 5 Mg Tablet PO 5 mg Q12HR ANGELICA Administration Clopidogrel Bisulfate 75 mg 07/26/21 09:00 07/28/21 09:23 Clopidogrel Bisulfate 75 Mg Tablet PO 75 mg DAILY ANGELICA Administration Cyanocobalamin 250 mcg 07/26/21 08:00 07/28/21 09:23 Cyanocobalamin 250 Mcg Tablet PO 250 mcg DAILY@0800 ANGELICA Administration Empagliflozin 10 mg 07/27/21 09:00 07/28/21 09:23 Empagliflozin 10 Mg
--- NOTE | 2021-07-28 13:12 | PM.IMPN ---
Progress Note: A&P Assessment and Plan (1) Acute CHF: Qualifiers: Heart failure type: unspecified Qualified Code(s): I50.9 - Heart failure, unspecified Code(s): I50.9 - Heart failure, unspecified Status: Acute Assessment and Plan: Acute systolic and diastolic CHF exacerbation Patient is a 71-year-old man with a history of hypertension, short-term memory loss, aortic arch aneurysm, Hodgkin's lymphoma, who presented to the emergency room with gradually worsening shortness of breath and leg swelling. Initial vitals showed blood pressure 127/88, heart rate 96, slight increased respiratory rate 22, 97% on room air, afebrile. Initial labs showed normocytic anemia with hemoglobin of 12, hematocrit 39%. INR normal 0.2. Creatinine 1.3, BUN 21, potassium 3.6, slight elevation ALT at 65. Troponin elevated 0.058-0.064. BNP 63661. COVID PCR negative. Chest x-ray on arrival showed airspace opacities at the lung bases, consistent with atelectasis versus pneumonia. Worsened small pleural effusions. Patient was admitted into the hospital for possible pneumonia with IV antibiotics and possible fluid overload with further cardiac workup and cardiology consultation. Patient was started on IV Lasix 40 mg b.i.d. His placed on a fluid restriction Echocardiogram showing Mild LVH, mild to moderate LV enlargement; severe global LV systolic dysfunction, ejection fraction about 20-25%. Diastolic dysfunction is present. Moderate left atrial enlargement. Mild right atrial enlargement. Normal mitral valve structure, [id number] MR. Aortic valve is not well visualized, no significant stenosis by Doppler. Mild aortic regurgitation. Mild TR, mild pulmonary hypertension, RVSP 43 mmHg. Aortic root size is normal, however, ascending aorta is not well visualized. Cardiology was consulted and is making medication adjustments given his systoic dysfunction: Metoprolol Succinate increased to 50 mg QD, Spironolactone 25 mg QD, Losartan 25 mg QD, and Jardiance. Plans to hopefully get the patient switched to PO Entresto prior/at discharge. Patient was just fitted for LifeVest but he has concerns about being able to do this on his own with his shortterm memory issues. Cardiology reports need for ischemic work up as outpatient Continue monitoring renal function, electrolytes and urine output with diuresis (2) Elevated troponin: Code(s): R77.8 - Other specified abnormalities of plasma proteins Status: Acute Assessment and Plan: Patient denies any Chest pain. Patient with coronary artery disease equivalent Head elevated troponin which could be related to possible congestive heart failure exacerbation Cardiology was consulted and their input is greatly appreciated (3) Irregular cardiac rhythm: Code(s): I49.9 - Cardiac arrhythmia, unspecified Status: Acute Assessment and Plan: Tele shows NSR rate 93 bpm, with frequent PACs and possible irregular rhythm with Afib vs frequent PACs causing irregularity, difficult to determine. Appreciate Cardiology input on Tele monitor to rule out Afib/Flutter. (4) Thoracic ascending aortic aneurysm: Code(s): I71.2 - Thoracic aortic aneurysm, without rupture Status: Acute Assessment and Plan: Continue beta-blockers Continue outpatient monitoring (5) HTN (hypertension): Qualifiers: Hypertension type: essential hypertension Qualified Code(s): I10 - Essential (primary) hypertension Code(s): I10 - Essential (primary) hypertension Status: Acute Assessment and Plan: Blood pressure stable 126/74. Continue to monitor with new medications that have been started by Cardiology (6) JONAH (o
[2021-07-29] VITALS (21 sets, daily range): BP systolic 100–106; BP diastolic 58–75; PULSE 70–120; RESP 12–18; TEMP 36–36.2; O2SAT 94–98
[2021-07-29] MEDS: ALBUTEROL SULFATE NEB 2.5 MG/0.5 ML INH INHALATION ×4 (02:15→19:55)
[2021-07-29] MEDS: IPRATROPIUM BR 0.02% INH SOLN 0.5 MG/2.5 ML VIAL INHALATION ×4 (02:16→19:55)
[2021-07-29] MEDS: cefTRIAXone 2 GM in SODIUM CHLORIDE 0.9% IV 100 ML 150 ML IVPB (05:10)
[2021-07-29] MEDS: LANSOPRAZOLE ORAL SUSP 30 MG/10 ML ORAL.SUSP PO (06:03)
[2021-07-29 07:37] LABS: Anion Gap 5 mmol/L (8-16); Blood Urea Nitrogen 21 mg/dL (9-20); Carbon Dioxide 29 mmol/L (22-30); Chloride 107 mmol/L (98-107); Estimated CRCL calculation 67 ml/min; Estimated Glomerular Filt Rate > 60; Glucose 126 mg/dL (65-110); Potassium 3.9 mmol/L (3.4-5.0); Sodium 141 mmol/L (137-145)
--- NOTE | 2021-07-29 08:11 | PM.PNCARD ---
Progress Note: A&P Assessment and Plan (1) Acute CHF: Qualifiers: Heart failure type: unspecified Qualified Code(s): I50.9 - Heart failure, unspecified Code(s): I50.9 - Heart failure, unspecified Status: Acute Assessment and Plan: 71-year-old male with CHF with severely reduced ejection fraction on current echo; ascending aortic aneurysm (CT chest from 02/07/2021 showed ascending aortic aneurysm, measuring up to 5.4 cm compared to approximately 5.1 cm on 04/12/2018 study) hypertension, Hodgkin's lymphoma status post chemotherapy, JONAH, dyslipidemia. Patient admitted to the hospital with progressive worsening shortness of breath. Echo showed severe global LV systolic dysfunction, ejection fraction 20-25%, [id number] MR. Possible etiologies for LV dysfunction include coronary artery disease, poorly-controlled hypertension, untreated obstructive sleep apnea. Currently being treated for acute CHF exacerbation -continue diuresis with IV furosemide today. Possibly change to p.o. furosemide tomorrow? Monitor electrolytes and renal function closely. Supplement potassium as necessary. -On GDMT with losartan, metoprolol, spironolactone, and jardiance. [facility] can be done as [facility]. -will consider ischemic evaluation as an outpatient. -external wearable defibrillator-LifeVest has been ordered and he was fitted for a yesterday. Unfortunately, due to patient's short-term memory deficit he does not remember being trained. Concern for patient's ability to operate the LifeVest appropriately/ troubleshoot alarms. Will discuss further with patient and staff at assisted living facility and re-educate patient and caregivers. (2) Thoracic aortic aneurysm without rupture: Code(s): I71.2 - Thoracic aortic aneurysm, without rupture Status: Acute Assessment and Plan: Patient has ascending aortic aneurysm with CT scan of the chest from 02/07/2021 showing aneurysm measuring up to 5.4 cm. Patient is approaching elective repair of the aneurysm. This will be managed as an outpatient. His candidacy for surgery will need to be addressed as an outpatient in collaboration with CT surgery due to his other comorbidities, including prognosis from Hodgkin lymphoma, and newly diagnosed CHF with severely reduced ejection fraction. At this time, strict blood pressure control is recommended. Try to maintain systolic blood pressure between 105-120 mmHg. Metoprolol succinate dose increased. (3) PAC (premature atrial contraction): Code(s): I49.1 - Atrial premature depolarization Status: Acute Assessment and Plan: Frequent PACs on telemetry. Continue to monitor for any other arrhythmias. Continue beta-sarika. (4) JONAH (obstructive sleep apnea): Code(s): G47.33 - Obstructive sleep apnea (adult) (pediatric) Status: Acute Assessment and Plan: Patient has not been compliant with CPAP. Recommend evaluation by sleep specialist for optimal treatment of obstructive sleep apnea. Untreated JONAH can cause and/or contribute to adverse cardiovascular events. Subjective Date/time seen: 07/29/21 08:11 Cardiology follow-up for CHF He is feeling okay today but still states that he is huffing and puffing. He also still has a moderate amount of swelling on his lower extremities. He does not have any other complaints. Review of Systems Review of Systems: All systems reviewed & are unremarkable except as noted in HPI and below Exam Const: General: comfortable and no acute distress HENMT: Mouth: Yes moist mucous membranes Eyes: Sclera: sclerae normal Pupils: Equal, round and reactive pupils present Neck: Neck: supple Other: Resp: Effort & Inspection: normal respiratory effort Auscultation: clear to auscultation bilaterally Cardio: Rate: regular rate Rhythm: regular rhythm and abnormal rhythm with ectopic beats Other: GI: Auscult
[2021-07-29] MEDS: EMPAGLIFLOZIN 10 MG TABLET PO (08:21)
[2021-07-29] MEDS: LOSARTAN POTASSIUM 25 MG TABLET PO (08:21)
[2021-07-29] MEDS: SPIRONOLACTONE 25 MG TABLET PO (08:21)
[2021-07-29] MEDS: ASPIRIN 81 MG ENTERIC TABLET PO (08:21)
[2021-07-29] MEDS: MULTIVITAMINS THERAPEUTIC TAB (*BKC) 1 TABLET PO (08:22)
[2021-07-29] MEDS: CYANOCOBALAMIN 250 MCG TABLET PO (08:22)
[2021-07-29] MEDS: MIRTAZAPINE 15 MG TABLET PO (08:22)
[2021-07-29] MEDS: METOPROLOL SUCCINATE EXT REL 50 MG TABCR PO (08:22)
[2021-07-29] MEDS: FOLIC ACID 1 MG TABLET PO (08:22)
[2021-07-29] MEDS: POLYSACCHARIDE IRON COMPLEX 150 MG CAPSULE PO ×2 (08:22→16:55)
[2021-07-29] MEDS: CLOPIDOGREL BISULFATE 75 MG TABLET PO (08:22)
[2021-07-29] MEDS: busPIRone HCL 5 MG TABLET PO ×2 (08:22→20:20)
[2021-07-29] MEDS: ROSUVASTATIN 10 MG TABLET 20 MG PO (08:22)
[2021-07-29] MEDS: FUROSEMIDE INJ 40 MG/4 ML VIAL IV PUSH ×2 (08:23→16:55)
[2021-07-29] MEDS: POTASSIUM CHLORIDE 20 MEQ TABLET.ER PO ×2 (08:23→16:55)
[2021-07-29] MEDS: ENOXAPARIN 40 MG/0.4 ML SYRINGE SUB-Q (08:25)
--- NOTE | 2021-07-29 12:11 | PM.IMPN ---
Progress Note: A&P Assessment and Plan (1) Acute CHF: Qualifiers: Heart failure type: unspecified Qualified Code(s): I50.9 - Heart failure, unspecified Code(s): I50.9 - Heart failure, unspecified Status: Acute Assessment and Plan: Acute systolic and diastolic CHF exacerbation Patient is a 71-year-old man with a history of hypertension, short-term memory loss, aortic arch aneurysm, Hodgkin's lymphoma, who presented to the emergency room with gradually worsening shortness of breath and leg swelling. Initial vitals showed blood pressure 127/88, heart rate 96, slight increased respiratory rate 22, 97% on room air, afebrile. Initial labs showed normocytic anemia with hemoglobin of 12, hematocrit 39%. INR normal 0.2. Creatinine 1.3, BUN 21, potassium 3.6, slight elevation ALT at 65. Troponin elevated 0.058-0.064. BNP 76936. COVID PCR negative. Chest x-ray on arrival showed airspace opacities at the lung bases, consistent with atelectasis versus pneumonia. Worsened small pleural effusions. Patient was admitted into the hospital for possible pneumonia with IV antibiotics and possible fluid overload with further cardiac workup and cardiology consultation. Patient was started on IV Lasix 40 mg b.i.d., per cardiology will try to transition to PO tomorrow His placed on a fluid restriction Echocardiogram showing Mild LVH, mild to moderate LV enlargement; severe global LV systolic dysfunction, ejection fraction about 20-25%. Diastolic dysfunction is present. Moderate left atrial enlargement. Mild right atrial enlargement. Normal mitral valve structure, [id number] MR. Aortic valve is not well visualized, no significant stenosis by Doppler. Mild aortic regurgitation. Mild TR, mild pulmonary hypertension, RVSP 43 mmHg. Aortic root size is normal, however, ascending aorta is not well visualized. Cardiology was consulted and is making medication adjustments given his systoic dysfunction: Metoprolol Succinate increased to 50 mg QD, Spironolactone 25 mg QD, Losartan 25 mg QD, and Jardiance. Plans to hopefully get the patient switched to PO Entresto prior/at discharge. Patient was just fitted for LifeVest but he has concerns about being able to do this on his own with his shortterm memory issues. Cardiology reports need for ischemic work up as outpatient Continue monitoring renal function, electrolytes and urine output with diuresis (2) Elevated troponin: Code(s): R77.8 - Other specified abnormalities of plasma proteins Status: Acute Assessment and Plan: -Patient denies any Chest pain. Patient with coronary artery disease equivalent -Had elevated troponin which could be related to possible congestive heart failure exacerbation -Cardiology consulted (3) Irregular cardiac rhythm: Code(s): I49.9 - Cardiac arrhythmia, unspecified Status: Acute Assessment and Plan: -Frequent PACs on telemetry. -Continue to monitor for any other arrhythmias. -Continue beta-sarika. -cardiology following (4) Thoracic ascending aortic aneurysm: Code(s): I71.2 - Thoracic aortic aneurysm, without rupture Status: Acute Assessment and Plan: Continue beta-blockers Continue outpatient monitoring (5) HTN (hypertension): Qualifiers: Hypertension type: essential hypertension Qualified Code(s): I10 - Essential (primary) hypertension Code(s): I10 - Essential (primary) hypertension Status: Acute Assessment and Plan: -Blood pressure stable -Continue to monitor with new medications that have been started by Cardiology (6) JONAH (obstructive sleep apnea): Code(s): G47.33 - Obstructive sleep apnea (adult)
--- NOTE | 2021-07-29 15:02 | PC.NURSE ---
On 07/29/21, the student, Chito Stroud, provided care and completed [facility] documentation on this patient. I have reviewed the student's documentation and agree with the findings.
[2021-07-30] VITALS (19 sets, daily range): BP systolic 97–116; BP diastolic 61–92; PULSE 77–101; RESP 16–20; TEMP 35.7–36.8; O2SAT 90–99
[2021-07-30] MEDS: ALBUTEROL SULFATE NEB 2.5 MG/0.5 ML INH INHALATION ×4 (02:03→20:06)
[2021-07-30] MEDS: IPRATROPIUM BR 0.02% INH SOLN 0.5 MG/2.5 ML VIAL INHALATION ×4 (02:04→20:06)
[2021-07-30] MEDS: LANSOPRAZOLE ORAL SUSP 30 MG/10 ML ORAL.SUSP PO (05:34)
[2021-07-30 06:14] LABS: Basophils Absolute Auto 0.1 K/mm3 (0.0-0.1); Basophils Percent Auto 0.9 % (0.2-1.2); Eosinophils Absolute Auto 0.5 K/mm3 (0-0.3); Hematocrit 35.8 % (42.0-52.0); Hemoglobin 11.1 g/dL (14.0-18.0); Immature Granulocyte Absolute 0.03 K/mm3 (0.00-0.031); Immature Granulocyte Percent A 0.4 % (0-0.5); Lymphocytes Absolute Auto 1.37 K/mm3 (0.9-3.2); Lymphocytes Percent Auto 20.5 % (18.3-44.2); Mean Corpuscular Hemoglobin 25.2 pg (26-34); Mean Corpuscular Volume 81.2 fl (80-100); Mean Platelet Volume 10.5 fl (7.4-10.4); Monocytes Absolute Auto 0.7 K/mm3 (0.1-0.6); Monocytes Percent Auto 10.5 % (2.6-8.5); Neutrophils Absolute Auto 4.1 K/mm3 (1.3-6.7); Neutrophils Percent Auto 60.7 % (45.5-73.1); Platelet Count Result 184 k/mm3 (150-375); Red Blood Count 4.41 M/mm3 (4.6-6.20); Red Cell Distribution Width 15.1 % (11.5-14.5); White Blood Count 6.7 K/mm3 (4.5-10.0)
[2021-07-30 06:23] LABS: Anion Gap 9 mmol/L (8-16); Blood Urea Nitrogen 23 mg/dL (9-20); Calcium 8.2 mg/dL (8.4-10.2); Carbon Dioxide 25 mmol/L (22-30); Chloride 107 mmol/L (98-107); Estimated CRCL calculation 62 ml/min; Estimated Glomerular Filt Rate 60; Glucose 116 mg/dL (65-110); Potassium 3.8 mmol/L (3.4-5.0); Sodium 141 mmol/L (137-145)
[2021-07-30] MEDS: ROSUVASTATIN 10 MG TABLET 20 MG PO (08:29)
[2021-07-30] MEDS: MULTIVITAMINS THERAPEUTIC TAB (*BKC) 1 TABLET PO (08:29)
[2021-07-30] MEDS: EMPAGLIFLOZIN 10 MG TABLET PO (08:29)
[2021-07-30] MEDS: MIRTAZAPINE 15 MG TABLET PO (08:29)
[2021-07-30] MEDS: POLYSACCHARIDE IRON COMPLEX 150 MG CAPSULE PO ×2 (08:29→17:42)
[2021-07-30] MEDS: POTASSIUM CHLORIDE 20 MEQ TABLET.ER PO ×2 (08:29→17:42)
[2021-07-30] MEDS: CLOPIDOGREL BISULFATE 75 MG TABLET PO (08:30)
[2021-07-30] MEDS: FUROSEMIDE INJ 40 MG/4 ML VIAL IV PUSH ×2 (08:30→17:42)
[2021-07-30] MEDS: CYANOCOBALAMIN 250 MCG TABLET PO (08:30)
[2021-07-30] MEDS: SPIRONOLACTONE 25 MG TABLET PO (08:30)
[2021-07-30] MEDS: busPIRone HCL 5 MG TABLET PO ×2 (08:30→20:29)
[2021-07-30] MEDS: LOSARTAN POTASSIUM 25 MG TABLET PO (08:30)
[2021-07-30] MEDS: ASPIRIN 81 MG ENTERIC TABLET PO (08:30)
[2021-07-30] MEDS: FOLIC ACID 1 MG TABLET PO (08:30)
[2021-07-30] MEDS: ENOXAPARIN 40 MG/0.4 ML SYRINGE SUB-Q (08:30)
[2021-07-30] MEDS: METOPROLOL SUCCINATE EXT REL 25 MG TABCR 75 MG PO (08:31)
--- NOTE | 2021-07-30 11:21 | PM.IMPN ---
Progress Note: A&P Assessment and Plan (1) Acute CHF: Qualifiers: Heart failure type: unspecified Qualified Code(s): I50.9 - Heart failure, unspecified Code(s): I50.9 - Heart failure, unspecified Status: Acute Assessment and Plan: Acute systolic and diastolic CHF exacerbation Patient is a 71-year-old man with a history of hypertension, short-term memory loss, aortic arch aneurysm, Hodgkin's lymphoma, who presented to the emergency room with gradually worsening shortness of breath and leg swelling. Initial vitals showed blood pressure 127/88, heart rate 96, slight increased respiratory rate 22, 97% on room air, afebrile. Initial labs showed normocytic anemia with hemoglobin of 12, hematocrit 39%. INR normal 0.2. Creatinine 1.3, BUN 21, potassium 3.6, slight elevation ALT at 65. Troponin elevated 0.058-0.064. BNP 26006. COVID PCR negative. Chest x-ray on arrival showed airspace opacities at the lung bases, consistent with atelectasis versus pneumonia. Worsened small pleural effusions. Patient was admitted into the hospital for possible pneumonia with IV antibiotics and possible fluid overload with further cardiac workup and cardiology consultation. Patient was started on IV Lasix 40 mg b.i.d. He was placed on a fluid restriction Echocardiogram showing Mild LVH, mild to moderate LV enlargement; severe global LV systolic dysfunction, ejection fraction about 20-25%. Diastolic dysfunction is present. Moderate left atrial enlargement. Mild right atrial enlargement. Normal mitral valve structure, [id number] MR. Aortic valve is not well visualized, no significant stenosis by Doppler. Mild aortic regurgitation. Mild TR, mild pulmonary hypertension, RVSP 43 mmHg. Aortic root size is normal, however, ascending aorta is not well visualized. Cardiology was consulted and is making medication adjustments given his systolic dysfunction: Metoprolol Succinate increased to 50 mg QD, Spironolactone 25 mg QD, Losartan 25 mg QD, and Jardiance. Plans to hopefully get the patient switched to PO Entresto prior/at discharge. Patient was just fitted for LifeVest but there are concerns about being able to do this on his own with his shortterm memory issues. Apparently assisted living facility will not help with this so I have asked care coordination to look into SNF placement for assistance with his life vest. Cardiology reports need for ischemic work up as outpatient Continue monitoring renal function, electrolytes and urine output with diuresis (2) Elevated troponin: Code(s): R77.8 - Other specified abnormalities of plasma proteins Status: Acute Assessment and Plan: -Patient denies any Chest pain. Patient with coronary artery disease equivalent -Had elevated troponin which could be related to possible congestive heart failure exacerbation -Cardiology consulted (3) Irregular cardiac rhythm: Code(s): I49.9 - Cardiac arrhythmia, unspecified Status: Acute Assessment and Plan: -Frequent PACs on telemetry. -had several runs of vtach last night, cardiology increased metoprolol from 50 to 75 QD -cardiology following (4) Thoracic ascending aortic aneurysm: Code(s): I71.2 - Thoracic aortic aneurysm, without rupture Status: Acute Assessment and Plan: Continue beta-blockers Continue outpatient monitoring (5) HTN (hypertension): Qualifiers: Hypertension type: essential hypertension Qualified Code(s): I10 - Essential (primary) hypertension Code(s): I10 - Essential (primary) hypertension Status: Acute Assessment and Plan: -Blood pressure stable -Continue to monitor with new medications that have been started by Cardiology
--- NOTE | 2021-07-30 13:31 | PM.PNCARD ---
Progress Note: A&P Assessment and Plan (1) Acute CHF: Qualifiers: Heart failure type: unspecified Qualified Code(s): I50.9 - Heart failure, unspecified Code(s): I50.9 - Heart failure, unspecified Status: Acute Assessment and Plan: 71-year-old male with CHF with severely reduced ejection fraction on current echo; ascending aortic aneurysm (CT chest from 02/07/2021 showed ascending aortic aneurysm, measuring up to 5.4 cm compared to approximately 5.1 cm on 04/12/2018 study) hypertension, Hodgkin's lymphoma status post chemotherapy, JONAH, dyslipidemia. Patient admitted to the hospital with progressive worsening shortness of breath. Echo showed severe global LV systolic dysfunction, ejection fraction 20-25%, [id number] MR. Possible etiologies for LV dysfunction include coronary artery disease, poorly-controlled hypertension, untreated obstructive sleep apnea. Currently being treated for acute CHF exacerbation -continue diuresis with IV furosemide today. Will add metolazone 5 mg p.o. x1 today. Monitor electrolytes and renal function closely. Supplement potassium as necessary. -On GDMT with losartan, metoprolol, spironolactone, and jardiance. [facility] be [facility] as [facility]. -will consider ischemic evaluation as an outpatient. -external wearable defibrillator-LifeVest has been ordered and he was fitted for a yesterday. Unfortunately, due to patient's short-term memory deficit he does not remember being trained. Concern for patient's ability to operate the LifeVest appropriately/ troubleshoot alarms. Will discuss further with patient and staff at assisted living facility and re-educate patient and caregivers. (2) Thoracic aortic aneurysm without rupture: Code(s): I71.2 - Thoracic aortic aneurysm, without rupture Status: Acute Assessment and Plan: Patient has ascending aortic aneurysm with CT scan of the chest from 02/07/2021 showing aneurysm measuring up to 5.4 cm. Patient is approaching elective repair of the aneurysm. This will be managed as an outpatient. His candidacy for surgery will need to be addressed as an outpatient in collaboration with CT surgery due to his other comorbidities, including prognosis from Hodgkin lymphoma, and newly diagnosed CHF with severely reduced ejection fraction. At this time, strict blood pressure control is recommended. Try to maintain systolic blood pressure between 105-120 mmHg. Metoprolol succinate dose increased. (3) PAC (premature atrial contraction): Code(s): I49.1 - Atrial premature depolarization Status: Acute Assessment and Plan: Frequent PACs on telemetry. Continue to monitor for any other arrhythmias. Continue beta-sarika. (4) JONAH (obstructive sleep apnea): Code(s): G47.33 - Obstructive sleep apnea (adult) (pediatric) Status: Acute Assessment and Plan: Patient has not been compliant with CPAP. Recommend evaluation by sleep specialist for optimal treatment of obstructive sleep apnea. Untreated JONAH can cause and/or contribute to adverse cardiovascular events. Subjective Date/time seen: 07/30/21 13:32 Interval history: Follow-up visit in this 71-year-old man with: Newly diagnosed dilated cardiomyopathy with decompensated biventricular CHF. Patient has recent history of a lymphoma treated with chemotherapy as well as longstanding short-term memory loss which began couple of decades ago and was never specifically diagnosed in terms of etiology Date of service 07/30/2021: He does not feel very well today. He knows with the LifeVest is 4 and white it is used. He is more short of breath today. No chest pain. Review of Systems Review of Systems: All systems reviewed & are unremarkable except as noted in HPI and below Constitutional: Constitutional: Denies weakness Eyes: Eyes: Denies blurry vision ENT: Reports Normal hearing present Cardiovascul
[2021-07-30] MEDS: metOLazone 5 MG TABLET PO (17:42)
[2021-07-31] VITALS (14 sets, daily range): BP systolic 101–107; BP diastolic 65–76; PULSE 68–88; RESP 16–18; TEMP 36.4–36.6; O2SAT 93–100
[2021-07-31] MEDS: ALBUTEROL SULFATE NEB 2.5 MG/0.5 ML INH INHALATION ×2 (02:45→08:20)
[2021-07-31] MEDS: IPRATROPIUM BR 0.02% INH SOLN 0.5 MG/2.5 ML VIAL INHALATION ×2 (02:45→08:20)
[2021-07-31] MEDS: LANSOPRAZOLE ORAL SUSP 30 MG/10 ML ORAL.SUSP PO (06:05)
[2021-07-31 06:09] LABS: Hematocrit 38.8 % (42.0-52.0); Hemoglobin 11.9 g/dL (14.0-18.0); Mean Corpuscular HGB Conc 30.7 g/dl (32-36); Mean Corpuscular Hemoglobin 25.4 pg (26-34); Mean Corpuscular Volume 82.7 fl (80-100); Mean Platelet Volume 10.5 fl (7.4-10.4); Platelet Count Result 184 k/mm3 (150-375); Red Blood Count 4.69 M/mm3 (4.6-6.20); White Blood Count 7.6 K/mm3 (4.5-10.0)
[2021-07-31 06:29] LABS: Anion Gap 5 mmol/L (8-16); Blood Urea Nitrogen 21 mg/dL (9-20); Calcium 8.4 mg/dL (8.4-10.2); Carbon Dioxide 28 mmol/L (22-30); Chloride 107 mmol/L (98-107); Estimated CRCL calculation 57 ml/min; Estimated Glomerular Filt Rate 54; Glucose 102 mg/dL (65-110); Potassium 3.9 mmol/L (3.4-5.0); Sodium 140 mmol/L (137-145)
[2021-07-31] MEDS: ASPIRIN 81 MG ENTERIC TABLET PO (08:08)
[2021-07-31] MEDS: CLOPIDOGREL BISULFATE 75 MG TABLET PO (08:08)
[2021-07-31] MEDS: CYANOCOBALAMIN 250 MCG TABLET PO (08:08)
[2021-07-31] MEDS: POTASSIUM CHLORIDE 20 MEQ TABLET.ER PO ×2 (08:08→17:26)
[2021-07-31] MEDS: MULTIVITAMINS THERAPEUTIC TAB (*BKC) 1 TABLET PO (08:08)
[2021-07-31] MEDS: METOPROLOL SUCCINATE EXT REL 25 MG TABCR 75 MG PO (08:08)
[2021-07-31] MEDS: POLYSACCHARIDE IRON COMPLEX 150 MG CAPSULE PO ×2 (08:09→17:27)
[2021-07-31] MEDS: FUROSEMIDE INJ 40 MG/4 ML VIAL IV PUSH ×2 (08:09→17:26)
[2021-07-31] MEDS: ENOXAPARIN 40 MG/0.4 ML SYRINGE SUB-Q (08:09)
[2021-07-31] MEDS: EMPAGLIFLOZIN 10 MG TABLET PO (08:09)
[2021-07-31] MEDS: SPIRONOLACTONE 25 MG TABLET PO (08:09)
[2021-07-31] MEDS: MIRTAZAPINE 15 MG TABLET PO (08:09)
[2021-07-31] MEDS: FOLIC ACID 1 MG TABLET PO (08:09)
[2021-07-31] MEDS: LOSARTAN POTASSIUM 25 MG TABLET PO (08:09)
[2021-07-31] MEDS: busPIRone HCL 5 MG TABLET PO ×2 (08:09→20:36)
[2021-07-31] MEDS: ROSUVASTATIN 10 MG TABLET 20 MG PO (08:10)
--- NOTE | 2021-07-31 12:30 | PM.IMPN ---
Progress Note: A&P Assessment and Plan (1) Acute CHF: Qualifiers: Heart failure type: unspecified Qualified Code(s): I50.9 - Heart failure, unspecified Code(s): I50.9 - Heart failure, unspecified Status: Acute Assessment and Plan: Acute systolic and diastolic CHF exacerbation Patient is a 71-year-old man with a history of hypertension, short-term memory loss, aortic arch aneurysm, Hodgkin's lymphoma, who presented to the emergency room with gradually worsening shortness of breath and leg swelling. Initial vitals showed blood pressure 127/88, heart rate 96, slight increased respiratory rate 22, 97% on room air, afebrile. Initial labs showed normocytic anemia with hemoglobin of 12, hematocrit 39%. INR normal 0.2. Creatinine 1.3, BUN 21, potassium 3.6, slight elevation ALT at 65. Troponin elevated 0.058-0.064. BNP 56866. COVID PCR negative. Chest x-ray on arrival showed airspace opacities at the lung bases, consistent with atelectasis versus pneumonia. Worsened small pleural effusions. Patient was admitted into the hospital for possible pneumonia with IV antibiotics and possible fluid overload with further cardiac workup and cardiology consultation. Patient was started on IV Lasix 40 mg b.i.d. He was placed on a fluid restriction Echocardiogram showing Mild LVH, mild to moderate LV enlargement; severe global LV systolic dysfunction, ejection fraction about 20-25%. Diastolic dysfunction is present. Moderate left atrial enlargement. Mild right atrial enlargement. Normal mitral valve structure, pkxf-ar-zqjwopaj MR. Aortic valve is not well visualized, no significant stenosis by Doppler. Mild aortic regurgitation. Mild TR, mild pulmonary hypertension, RVSP 43 mmHg. Aortic root size is normal, however, ascending aorta is not well visualized. Cardiology was consulted and is making medication adjustments given his systolic dysfunction: Metoprolol Succinate increased to 75 mg QD, Spironolactone 25 mg QD, Losartan 25 mg QD, and Jardiance. Plans to hopefully get the patient switched to PO Entresto prior/at discharge. Patient was just fitted for LifeVest but there are concerns about being able to do this on his own with his short term memory issues. Apparently assisted living facility will not help with this so I have asked care coordination to look into SNF placement for assistance with his life vest. Cardiology has had multiple at length discussions with family regarding options. Cardiology reports need for ischemic work up as outpatient Further medication adjustments per cardiology Continue monitoring renal function, electrolytes and urine output with diuresis (2) Elevated troponin: Code(s): R77.8 - Other specified abnormalities of plasma proteins Status: Acute Assessment and Plan: -Patient denies any Chest pain. Patient with coronary artery disease equivalent -Had elevated troponin which could be related to possible congestive heart failure exacerbation -Cardiology consulted (3) Irregular cardiac rhythm: Code(s): I49.9 - Cardiac arrhythmia, unspecified Status: Acute Assessment and Plan: -Frequent PACs on telemetry. -had several runs of vtach overnight 07/30/21, cardiology increased metoprolol from 50 to 75 QD -cardiology following (4) Thoracic ascending aortic aneurysm: Code(s): I71.2 - Thoracic aortic aneurysm, without rupture Status: Acute Assessment and Plan: Continue beta-blockers Continue outpatient monitoring (5) HTN (hypertension): Qualifiers: Hypertension type: essential hypertension Qualified Code(s): I10 - Essential (primary) hypertension Code(s): I10 - Essential (primary) hypertension Status: Acute Assess
--- NOTE | 2021-07-31 12:54 | PM.PNCARD ---
Progress Note: A&P Assessment and Plan (1) Acute CHF: Qualifiers: Heart failure type: unspecified Qualified Code(s): I50.9 - Heart failure, unspecified Code(s): I50.9 - Heart failure, unspecified Status: Acute Assessment and Plan: 71-year-old male with CHF with severely reduced ejection fraction on current echo; ascending aortic aneurysm (CT chest from 02/07/2021 showed ascending aortic aneurysm, measuring up to 5.4 cm compared to approximately 5.1 cm on 04/12/2018 study) hypertension, Hodgkin's lymphoma status post chemotherapy, JONAH, dyslipidemia. Patient admitted to the hospital with progressive worsening shortness of breath. Echo showed severe global LV systolic dysfunction, ejection fraction 20-25%, [id number] MR. Possible etiologies for LV dysfunction include coronary artery disease, poorly-controlled hypertension, untreated obstructive sleep apnea. Currently being treated for acute CHF exacerbation Slowly improving but is still short of breath and has moderate bilateral lower extremity edema. Continue diuresis with IV furosemide today. Will add metolazone 5 mg p.o. x1 today. Monitor electrolytes and renal function closely. Supplement potassium as necessary. On GDMT with metoprolol, spironolactone, and jardiance. Start Entresto today. Will consider ischemic evaluation as an outpatient. External wearable defibrillator-LifeVest has been ordered and he was fitted for a yesterday. Unfortunately, due to patient's short-term memory deficit he does not remember being trained. Concern for patient's ability to operate the LifeVest appropriately/ troubleshoot alarms. Furthermore, his assisted living facility will not except the patient back to their care if he is wearing a life vest. I have discussed this with both the patient's daughter and sister at great length. There is a possibility for patient to be accepted to SNF following discharge which would allow him to be discharged with a LifeVest. However, both patient's sister and daughter want him to return to his assisted living facility and not to be transition to an SNF. They both verbalize and understand the risk of SCD If patient is discharged without a life vest. They would like to continue to think about their options before making a decision and will contact the reproductive healthcare assistant tomorrow to communicate their final decision. (2) Thoracic aortic aneurysm without rupture: Code(s): I71.2 - Thoracic aortic aneurysm, without rupture Status: Acute Assessment and Plan: Patient has ascending aortic aneurysm with CT scan of the chest from 02/07/2021 showing aneurysm measuring up to 5.4 cm. Patient is approaching elective repair of the aneurysm. This will be managed as an outpatient. His candidacy for surgery will need to be addressed as an outpatient in collaboration with CT surgery due to his other comorbidities, including prognosis from Hodgkin lymphoma, and newly diagnosed CHF with severely reduced ejection fraction. At this time, strict blood pressure control is recommended. Try to maintain systolic blood pressure between 105-120 mmHg. Metoprolol succinate dose increased. (3) PAC (premature atrial contraction): Code(s): I49.1 - Atrial premature depolarization Status: Acute Assessment and Plan: Frequent PACs on telemetry. Continue to monitor for any other arrhythmias. Continue beta-sarika. (4) JONAH (obstructive sleep apnea): Code(s): G47.33 - Obstructive sleep apnea (adult) (pediatric) Status: Acute Assessment and Plan: Patient has not been compliant with CPAP. Recommend evaluation by sleep specialist for optimal treatment of obstructive sleep apnea. Untreated JONAH can cause and/or contribute to adverse cardiovascular events. (5) NSVT (nonsustained ventricular tachycardia): Code(s): I47.2 - Ventricular tachycardia Status: Acute Assessment and Plan: 16 beat r
[2021-07-31] MEDS: metOLazone 5 MG TABLET PO (16:33)
[2021-07-31] MEDS: SACUBITRIL/VALSARTAN 24-26 MG TABLET 1 TAB PO (20:36)
[2021-08-01] VITALS (10 sets, daily range): BP systolic 93–106; BP diastolic 44–62; PULSE 59–89; RESP 17–20; TEMP 36.2–36.5; O2SAT 95–97
[2021-08-01] MEDS: LANSOPRAZOLE ORAL SUSP 30 MG/10 ML ORAL.SUSP PO (06:10)
[2021-08-01 06:36] LABS: Hematocrit 37.6 % (42.0-52.0); Hemoglobin 11.7 g/dL (14.0-18.0); Mean Corpuscular HGB Conc 31.1 g/dl (32-36); Mean Corpuscular Hemoglobin 25.8 pg (26-34); Mean Corpuscular Volume 82.8 fl (80-100); Mean Platelet Volume 10.5 fl (7.4-10.4); Platelet Count Result 174 k/mm3 (150-375); Red Blood Count 4.54 M/mm3 (4.6-6.20); Red Cell Distribution Width 14.9 % (11.5-14.5); White Blood Count 6.2 K/mm3 (4.5-10.0)
[2021-08-01 06:49] LABS: Potassium 3.2 mmol/L (3.4-5.0)
[2021-08-01 06:52] LABS: Anion Gap 3 mmol/L (8-16); Blood Urea Nitrogen 21 mg/dL (9-20); Calcium 8.2 mg/dL (8.4-10.2); Carbon Dioxide 29 mmol/L (22-30); Chloride 105 mmol/L (98-107); Estimated CRCL calculation 66 ml/min; Estimated Glomerular Filt Rate > 60; Glucose 107 mg/dL (65-110); Sodium 137 mmol/L (137-145)
[2021-08-01] MEDS: METOPROLOL SUCCINATE EXT REL 25 MG TABCR 75 MG PO (09:17)
[2021-08-01] MEDS: SACUBITRIL/VALSARTAN 24-26 MG TABLET 1 TAB PO ×2 (09:17→20:46)
[2021-08-01] MEDS: CLOPIDOGREL BISULFATE 75 MG TABLET PO (09:17)
[2021-08-01] MEDS: POTASSIUM CHLORIDE 20 MEQ TABLET 40 MEQ PO (09:17)
[2021-08-01] MEDS: POLYSACCHARIDE IRON COMPLEX 150 MG CAPSULE PO ×2 (09:18→17:36)
[2021-08-01] MEDS: ROSUVASTATIN 10 MG TABLET 20 MG PO (09:18)
[2021-08-01] MEDS: POTASSIUM CHLORIDE 20 MEQ TABLET.ER PO ×2 (09:18→17:36)
[2021-08-01] MEDS: FOLIC ACID 1 MG TABLET PO (09:18)
[2021-08-01] MEDS: EMPAGLIFLOZIN 10 MG TABLET PO (09:18)
[2021-08-01] MEDS: ASPIRIN 81 MG ENTERIC TABLET PO (09:18)
[2021-08-01] MEDS: ENOXAPARIN 40 MG/0.4 ML SYRINGE SUB-Q (09:19)
[2021-08-01] MEDS: SPIRONOLACTONE 25 MG TABLET PO (09:19)
[2021-08-01] MEDS: MIRTAZAPINE 15 MG TABLET PO (09:19)
[2021-08-01] MEDS: FUROSEMIDE INJ 40 MG/4 ML VIAL IV PUSH ×2 (09:19→17:36)
[2021-08-01] MEDS: MULTIVITAMINS THERAPEUTIC TAB (*BKC) 1 TABLET PO (09:19)
[2021-08-01] MEDS: CYANOCOBALAMIN 250 MCG TABLET PO (09:19)
[2021-08-01] MEDS: busPIRone HCL 5 MG TABLET PO ×2 (09:19→20:46)
--- NOTE | 2021-08-01 10:15 | PM.PNCARD ---
Progress Note: A&P Assessment and Plan (1) Acute CHF: Qualifiers: Heart failure type: unspecified Qualified Code(s): I50.9 - Heart failure, unspecified Code(s): I50.9 - Heart failure, unspecified Status: Acute Assessment and Plan: 71-year-old male with CHF with severely reduced ejection fraction on current echo; ascending aortic aneurysm (CT chest from 02/07/2021 showed ascending aortic aneurysm, measuring up to 5.4 cm compared to approximately 5.1 cm on 04/12/2018 study) hypertension, Hodgkin's lymphoma status post chemotherapy, JONAH, dyslipidemia. Patient admitted to the hospital with progressive worsening shortness of breath. Echo showed severe global LV systolic dysfunction, ejection fraction 20-25%, [id number] MR. Possible etiologies for LV dysfunction include coronary artery disease, poorly-controlled hypertension, untreated obstructive sleep apnea. Currently being treated for acute CHF exacerbation Slowly improving but is still short of breath and has moderate bilateral lower extremity edema. Continue diuresis with IV furosemide. Likely decrease furosemide tomorrow. Metolazone 2.5 mg p.o. x1. Monitor electrolytes and renal function closely. KCL 40 mEq p.o. x1 On GDMT with metoprolol, spironolactone, and jardiance. Start Entresto today. Will consider ischemic evaluation as an outpatient. External wearable defibrillator-LifeVest has been ordered and he was fitted for a yesterday. Unfortunately, due to patient's short-term memory deficit he does not remember being trained. Concern for patient's ability to operate the LifeVest appropriately/ troubleshoot alarms. Furthermore, his assisted living facility will not except the patient back to their care if he is wearing a life vest. I have discussed this with both the patient's daughter and sister at great length. There is a possibility for patient to be accepted to SNF following discharge which would allow him to be discharged with a LifeVest. However, both patient's sister and daughter want him to return to his assisted living facility and not to be transition to an SNF. They both verbalize and understand the risk of SCD If patient is discharged without a life vest. They would like to continue to think about their options before making a decision and will contact the child care center assistant director tomorrow to communicate their final decision. (2) Thoracic aortic aneurysm without rupture: Code(s): I71.2 - Thoracic aortic aneurysm, without rupture Status: Acute Assessment and Plan: Patient has ascending aortic aneurysm with CT scan of the chest from 02/07/2021 showing aneurysm measuring up to 5.4 cm. Patient is approaching elective repair of the aneurysm. This will be managed as an outpatient. His candidacy for surgery will need to be addressed as an outpatient in collaboration with CT surgery due to his other comorbidities, including prognosis from Hodgkin lymphoma, and newly diagnosed CHF with severely reduced ejection fraction. At this time, strict blood pressure control is recommended. Try to maintain systolic blood pressure between 105-120 mmHg. Metoprolol succinate dose increased. (3) PAC (premature atrial contraction): Code(s): I49.1 - Atrial premature depolarization Status: Acute Assessment and Plan: Frequent PACs on telemetry. Continue to monitor for any other arrhythmias. Continue beta-sarika. (4) JONAH (obstructive sleep apnea): Code(s): G47.33 - Obstructive sleep apnea (adult) (pediatric) Status: Acute Assessment and Plan: Patient has not been compliant with CPAP. Recommend evaluation by sleep specialist for optimal treatment of obstructive sleep apnea. Untreated JONAH can cause and/or contribute to adverse cardiovascular events. (5) NSVT (nonsustained ventricular tachycardia): Code(s): I47.2 - Ventricular tachycardia Status: Acute Assessment and Plan: 16 darell
--- NOTE | 2021-08-01 13:13 | PM.IMPN ---
Progress Note: A&P Assessment and Plan (1) Acute CHF: Qualifiers: Heart failure type: unspecified Qualified Code(s): I50.9 - Heart failure, unspecified Code(s): I50.9 - Heart failure, unspecified Status: Acute Assessment and Plan: Acute systolic and diastolic CHF exacerbation Patient is a 71-year-old man with a history of hypertension, short-term memory loss, aortic arch aneurysm, Hodgkin's lymphoma, who presented to the emergency room with gradually worsening shortness of breath and leg swelling. Initial vitals showed blood pressure 127/88, heart rate 96, slight increased respiratory rate 22, 97% on room air, afebrile. Initial labs showed normocytic anemia with hemoglobin of 12, hematocrit 39%. INR normal 0.2. Creatinine 1.3, BUN 21, potassium 3.6, slight elevation ALT at 65. Troponin elevated 0.058-0.064. BNP 72476. COVID PCR negative. Chest x-ray on arrival showed airspace opacities at the lung bases, consistent with atelectasis versus pneumonia. Worsened small pleural effusions. Patient was admitted into the hospital for possible pneumonia with IV antibiotics and possible fluid overload with further cardiac workup and cardiology consultation. He was placed on a fluid restriction Echocardiogram showing Mild LVH, mild to moderate LV enlargement; severe global LV systolic dysfunction, ejection fraction about 20-25%. Diastolic dysfunction is present. Moderate left atrial enlargement. Mild right atrial enlargement. Normal mitral valve structure, [id number]-vl-[id number] MR. Aortic valve is not well visualized, no significant stenosis by Doppler. Mild aortic regurgitation. Mild TR, mild pulmonary hypertension, RVSP 43 mmHg. Aortic root size is normal, however, ascending aorta is not well visualized. Cardiology was consulted and is making medication adjustments given his systolic dysfunction: Metoprolol Succinate increased to 75 mg QD, Spironolactone 25 mg QD, Losartan 25 mg QD, and Jardiance. Plans to hopefully get the patient switched to PO Entresto prior/at discharge. Patient was just fitted for LifeVest but there are concerns about being able to do this on his own with his short term memory issues. Apparently assisted living facility will not help with this so I had asked care coordination to look into SNF placement for assistance with his life vest. Cardiology has had multiple at length discussions with family regarding options and ultimately patient's family including POA have decided he will go home without the life vest. I asked them to look into home health to help and this will also not work as they can only come out two days per week. Cardiology reports need for ischemic work up as outpatient Continue IV Lasix 40 mg b.i.d., per cardiology likely decrease tomorrow. Metolazone 2.5 mg p.o. x1. Further medication adjustments per cardiology (2) Elevated troponin: Code(s): R77.8 - Other specified abnormalities of plasma proteins Status: Acute Assessment and Plan: -Patient denies any Chest pain. Patient with coronary artery disease equivalent -Had elevated troponin which could be related to possible congestive heart failure exacerbation -Cardiology consulted (3) Irregular cardiac rhythm: Code(s): I49.9 - Cardiac arrhythmia, unspecified Status: Acute Assessment and Plan: -Frequent PACs on telemetry. -had several runs of vtach overnight 07/30/21, cardiology increased metoprolol from 50 to 75 QD -cardiology following (4) Thoracic ascending aortic aneurysm: Code(s): I71.2 - Thoracic aortic aneurysm, without rupture Status: Acute Assessment and Plan: Continue beta-blockers Continue outpatient monitoring (5) HTN (hypertension): Qualifiers:
[2021-08-01] MEDS: metOLazone 2.5 MG TABLET PO (14:23)
[2021-08-02] VITALS (10 sets, daily range): BP systolic 94–100; BP diastolic 64–70; PULSE 62–85; RESP 18–20; TEMP 35.8–36.1; O2SAT 92–100
[2021-08-02] MEDS: LANSOPRAZOLE ORAL SUSP 30 MG/10 ML ORAL.SUSP PO (05:55)
[2021-08-02 05:57] LABS: Hematocrit 42.3 % (42.0-52.0); Hemoglobin 13.3 g/dL (14.0-18.0); Mean Corpuscular HGB Conc 31.4 g/dl (32-36); Mean Corpuscular Hemoglobin 25.7 pg (26-34); Mean Corpuscular Volume 81.8 fl (80-100); Mean Platelet Volume 10.8 fl (7.4-10.4); Platelet Count Result 237 k/mm3 (150-375); Red Blood Count 5.17 M/mm3 (4.6-6.20); Red Cell Distribution Width 14.8 % (11.5-14.5); White Blood Count 8.4 K/mm3 (4.5-10.0)
[2021-08-02 06:07] LABS: Anion Gap 10 mmol/L (8-16); Blood Urea Nitrogen 22 mg/dL (9-20); Calcium 8.6 mg/dL (8.4-10.2); Carbon Dioxide 28 mmol/L (22-30); Chloride 101 mmol/L (98-107); Estimated CRCL calculation 55 ml/min; Estimated Glomerular Filt Rate 54; Glucose 117 mg/dL (65-110); Potassium 3.6 mmol/L (3.4-5.0); Sodium 139 mmol/L (137-145)
[2021-08-02] MEDS: MIRTAZAPINE 15 MG TABLET PO (10:09)
[2021-08-02] MEDS: EMPAGLIFLOZIN 10 MG TABLET PO (10:09)
[2021-08-02] MEDS: SPIRONOLACTONE 25 MG TABLET PO (10:09)
[2021-08-02] MEDS: POTASSIUM CHLORIDE 20 MEQ TABLET.ER PO ×2 (10:09→16:27)
[2021-08-02] MEDS: FOLIC ACID 1 MG TABLET PO (10:10)
[2021-08-02] MEDS: CLOPIDOGREL BISULFATE 75 MG TABLET PO (10:10)
[2021-08-02] MEDS: ROSUVASTATIN 10 MG TABLET 20 MG PO (10:10)
[2021-08-02] MEDS: MULTIVITAMINS THERAPEUTIC TAB (*BKC) 1 TABLET PO (10:10)
[2021-08-02] MEDS: busPIRone HCL 5 MG TABLET PO ×2 (10:10→21:17)
[2021-08-02] MEDS: POLYSACCHARIDE IRON COMPLEX 150 MG CAPSULE PO ×2 (10:10→16:26)
[2021-08-02] MEDS: ASPIRIN 81 MG ENTERIC TABLET PO (10:10)
[2021-08-02] MEDS: ENOXAPARIN 40 MG/0.4 ML SYRINGE SUB-Q (10:11)
[2021-08-02] MEDS: METOPROLOL SUCCINATE EXT REL 25 MG TABCR 75 MG PO (10:11)
[2021-08-02] MEDS: SACUBITRIL/VALSARTAN 24-26 MG TABLET 1 TAB PO ×2 (10:11→21:17)
[2021-08-02] MEDS: CYANOCOBALAMIN 250 MCG TABLET PO (10:11)
[2021-08-02] MEDS: FUROSEMIDE INJ 40 MG/4 ML VIAL IV PUSH ×2 (10:12→16:27)
--- NOTE | 2021-08-02 13:44 | PM.IMPN ---
Progress Note: A&P Assessment and Plan (1) Acute CHF: Qualifiers: Heart failure type: unspecified Qualified Code(s): I50.9 - Heart failure, unspecified Code(s): I50.9 - Heart failure, unspecified Status: Acute Assessment and Plan: Acute systolic and diastolic CHF exacerbation Patient is a 71-year-old man with a history of hypertension, short-term memory loss, aortic arch aneurysm, Hodgkin's lymphoma, who presented to the emergency room with gradually worsening shortness of breath and leg swelling. Initial vitals showed blood pressure 127/88, heart rate 96, slight increased respiratory rate 22, 97% on room air, afebrile. Initial labs showed normocytic anemia with hemoglobin of 12, hematocrit 39%. INR normal 0.2. Creatinine 1.3, BUN 21, potassium 3.6, slight elevation ALT at 65. Troponin elevated 0.058-0.064. BNP 69051. COVID PCR negative. Chest x-ray on arrival showed airspace opacities at the lung bases, consistent with atelectasis versus pneumonia. Worsened small pleural effusions. Patient was admitted into the hospital for possible pneumonia with IV antibiotics and possible fluid overload with further cardiac workup and cardiology consultation. He was placed on a fluid restriction Echocardiogram showing Mild LVH, mild to moderate LV enlargement; severe global LV systolic dysfunction, ejection fraction about 20-25%. Diastolic dysfunction is present. Moderate left atrial enlargement. Mild right atrial enlargement. Normal mitral valve structure, dbsl-[id number] MR. Aortic valve is not well visualized, no significant stenosis by Doppler. Mild aortic regurgitation. Mild TR, mild pulmonary hypertension, RVSP 43 mmHg. Aortic root size is normal, however, ascending aorta is not well visualized. Cardiology was consulted and is making medication adjustments given his systolic dysfunction: Metoprolol Succinate increased to 75 mg QD, Spironolactone 25 mg QD, Losartan 25 mg QD, and Jardiance. Plans to hopefully get the patient switched to PO Entresto prior/at discharge. Patient was just fitted for LifeVest but there are concerns about being able to do this on his own with his short term memory issues. Apparently assisted living facility will not help with this so I had asked care coordination to look into SNF placement for assistance with his life vest. Cardiology has had multiple at length discussions with family regarding options and ultimately patient's family including POA have decided he will go home without the life vest. I asked them to look into home health to help and this will also not work as they can only come out two days per week. Cardiology reports need for ischemic work up as outpatient Continue IV Lasix 40 mg b.i.d., cardiology stated they would likely decrease today. Further medication adjustments per cardiology (2) Elevated troponin: Code(s): R77.8 - Other specified abnormalities of plasma proteins Status: Acute Assessment and Plan: -Patient denies any Chest pain. Patient with coronary artery disease equivalent -Had elevated troponin which could be related to possible congestive heart failure exacerbation -Cardiology consulted (3) Irregular cardiac rhythm: Code(s): I49.9 - Cardiac arrhythmia, unspecified Status: Acute Assessment and Plan: -Frequent PACs on telemetry. -had several runs of vtach overnight 07/30/21, cardiology increased metoprolol from 50 to 75 QD -cardiology following (4) Thoracic ascending aortic aneurysm: Code(s): I71.2 - Thoracic aortic aneurysm, without rupture Status: Acute Assessment and Plan: Continue beta-blockers Continue outpatient monitoring (5) HTN (hypertension): Qualifiers: Hypertension
--- NOTE | 2021-08-02 17:56 | PM.PNCARD ---
Progress Note: A&P Assessment and Plan (1) Acute CHF: Qualifiers: Heart failure type: unspecified Qualified Code(s): I50.9 - Heart failure, unspecified Code(s): I50.9 - Heart failure, unspecified Status: Acute Assessment and Plan: Patient admitted to the hospital with progressive worsening shortness of breath. Echo showed severe global LV systolic dysfunction, ejection fraction 20-25%, neic-rp-lhraztdk MR. Possible etiologies for LV dysfunction include coronary artery disease, poorly-controlled hypertension, untreated obstructive sleep apnea. Currently being treated for acute CHF exacerbation Improved with IV furosemide. Lungs are clear, now on room air, minimal edema. Change furosemide to p.o.. On guideline directed medical therapy with metoprolol, enalapril, spironolactone and Jardiance. Blood pressure somewhat soft today; will see what BP is tomorrow and if we have to reduce medications any. Will consider ischemic evaluation as an outpatient. External wearable defibrillator-LifeVest has been ordered and he was fitted for a yesterday. Unfortunately, due to patient's short-term memory deficit he does not remember being trained. Concern for patient's ability to operate the LifeVest appropriately/ troubleshoot alarms. Furthermore, his assisted living facility will not except the patient back to their care if he is wearing a life vest. I have discussed this with both the patient's daughter and sister at great length. There is a possibility for patient to be accepted to SNF following discharge which would allow him to be discharged with a LifeVest. However, both patient's sister and daughter want him to return to his assisted living facility and not to be transition to an SNF. They both verbalize and understand the risk of SCD If patient is discharged without a life vest. They would like to continue to think about their options before making a decision and will contact the care director tomorrow to communicate their final decision. Sounds like the patient and his family decided to go back to [facility] without the LifeVest. Possible discharge tomorrow? (2) Thoracic aortic aneurysm without rupture: Code(s): I71.2 - Thoracic aortic aneurysm, without rupture Status: Acute Assessment and Plan: Patient has ascending aortic aneurysm with CT scan of the chest from 02/07/2021 showing aneurysm measuring up to 5.4 cm. Patient is approaching elective repair of the aneurysm. This will be managed as an outpatient. His candidacy for surgery will need to be addressed as an outpatient in collaboration with CT surgery due to his other comorbidities, including prognosis from Hodgkin lymphoma, and newly diagnosed CHF with severely reduced ejection fraction. At this time, strict blood pressure control is recommended. Try to maintain systolic blood pressure between 105-120 mmHg. Metoprolol succinate dose increased. (3) PAC (premature atrial contraction): Code(s): I49.1 - Atrial premature depolarization Status: Acute Assessment and Plan: Frequent PACs on telemetry. Continue to monitor for any other arrhythmias. Continue beta-sarika. (4) JONAH (obstructive sleep apnea): Code(s): G47.33 - Obstructive sleep apnea (adult) (pediatric) Status: Acute Assessment and Plan: Patient has not been compliant with CPAP. Recommend evaluation by sleep specialist for optimal treatment of obstructive sleep apnea. Untreated JONAH can cause and/or contribute to adverse cardiovascular events. (5) NSVT (nonsustained ventricular tachycardia): Code(s): I47.2 - Ventricular tachycardia Status: Acute Assessment and Plan: 16 beat run of nonsustained ventricular tachycardia noted on telemetry this admission. Potassium borderline low; will cont. to supplement. Subjective Date/time seen: 08/02/21 17:56 Interval history: Follow-up visit in
[2021-08-03] VITALS: PULSE 73
[2021-08-03 04:00] VITALS: PULSE 73
[2021-08-03 05:18] VITALS: BP 93/41; PULSE 45; RESP 18; TEMP 36.5; O2SAT 96
[2021-08-03 05:43] LABS: Hematocrit 40.9 % (42.0-52.0); Hemoglobin 12.7 g/dL (14.0-18.0); Mean Corpuscular HGB Conc 31.1 g/dl (32-36); Mean Corpuscular Hemoglobin 25.2 pg (26-34); Mean Corpuscular Volume 81.3 fl (80-100); Platelet Count Result 220 k/mm3 (150-375); Red Blood Count 5.03 M/mm3 (4.6-6.20); Red Cell Distribution Width 14.9 % (11.5-14.5); White Blood Count 7.5 K/mm3 (4.5-10.0)
[2021-08-03 05:52] LABS: Anion Gap 9 mmol/L (8-16); Blood Urea Nitrogen 25 mg/dL (9-20); Calcium 8.5 mg/dL (8.4-10.2); Carbon Dioxide 29 mmol/L (22-30); Chloride 104 mmol/L (98-107); Estimated CRCL calculation 55 ml/min; Estimated Glomerular Filt Rate 54; Glucose 112 mg/dL (65-110); Potassium 3.7 mmol/L (3.4-5.0); Sodium 142 mmol/L (137-145)
[2021-08-03] MEDS: LANSOPRAZOLE ORAL SUSP 30 MG/10 ML ORAL.SUSP PO (06:22)
[2021-08-03 08:00] VITALS: PULSE 78
[2021-08-03 08:38] VITALS: BP 107/54; PULSE 73
[2021-08-03] MEDS: ROSUVASTATIN 10 MG TABLET 20 MG PO (08:38)
[2021-08-03] MEDS: CYANOCOBALAMIN 250 MCG TABLET PO (08:39)
[2021-08-03] MEDS: SPIRONOLACTONE 25 MG TABLET PO (08:39)
[2021-08-03] MEDS: MIRTAZAPINE 15 MG TABLET PO (08:39)
[2021-08-03] MEDS: FOLIC ACID 1 MG TABLET PO (08:39)
[2021-08-03] MEDS: POLYSACCHARIDE IRON COMPLEX 150 MG CAPSULE PO (08:39)
[2021-08-03] MEDS: METOPROLOL SUCCINATE EXT REL 25 MG TABCR 75 MG PO (08:39)
[2021-08-03] MEDS: SACUBITRIL/VALSARTAN 24-26 MG TABLET 1 TAB PO (08:39)
[2021-08-03] MEDS: busPIRone HCL 5 MG TABLET PO (08:39)
[2021-08-03] MEDS: ENOXAPARIN 40 MG/0.4 ML SYRINGE SUB-Q (08:40)
[2021-08-03] MEDS: CLOPIDOGREL BISULFATE 75 MG TABLET PO (08:40)
[2021-08-03] MEDS: MULTIVITAMINS THERAPEUTIC TAB (*BKC) 1 TABLET PO (08:40)
[2021-08-03] MEDS: ASPIRIN 81 MG ENTERIC TABLET PO (08:40)
[2021-08-03] MEDS: FUROSEMIDE INJ 40 MG/4 ML VIAL IV PUSH (08:40)
[2021-08-03] MEDS: POTASSIUM CHLORIDE 20 MEQ TABLET.ER PO (08:40)
[2021-08-03] MEDS: EMPAGLIFLOZIN 10 MG TABLET PO (08:40)
--- NOTE | 2021-08-03 11:20 | PM.DS ---
DS: Admitting Diagnosis Discharge Date 08/03/21 Admitting Diagnosis acute CHF DS: Discharge Diagnosis Discharge Diagnosis (1) Acute CHF: Qualifiers: Heart failure type: unspecified Qualified Code(s): I50.9 - Heart failure, unspecified Code(s): I50.9 - Heart failure, unspecified Status: Acute Assessment and Plan: Acute systolic and diastolic CHF exacerbation Patient is a 71-year-old man with a history of hypertension, short-term memory loss, aortic arch aneurysm, Hodgkin's lymphoma, who presented to the emergency room with gradually worsening shortness of breath and leg swelling. Initial vitals showed blood pressure 127/88, heart rate 96, slight increased respiratory rate 22, 97% on room air, afebrile. Initial labs showed normocytic anemia with hemoglobin of 12, hematocrit 39%. INR normal 0.2. Creatinine 1.3, BUN 21, potassium 3.6, slight elevation ALT at 65. Troponin elevated 0.058-0.064. BNP 78071. COVID PCR negative. Chest x-ray on arrival showed airspace opacities at the lung bases, consistent with atelectasis versus pneumonia. Worsened small pleural effusions. Patient was admitted into the hospital for possible pneumonia with IV antibiotics and possible fluid overload with further cardiac workup and cardiology consultation. He was placed on a fluid restriction Echocardiogram showing Mild LVH, mild to moderate LV enlargement; severe global LV systolic dysfunction, ejection fraction about 20-25%. Diastolic dysfunction is present. Moderate left atrial enlargement. Mild right atrial enlargement. Normal mitral valve structure, [id number] MR. Aortic valve is not well visualized, no significant stenosis by Doppler. Mild aortic regurgitation. Mild TR, mild pulmonary hypertension, RVSP 43 mmHg. Aortic root size is normal, however, ascending aorta is not well visualized. Cardiology was consulted and is making medication adjustments given his systolic dysfunction: Metoprolol Succinate increased to 75 mg QD, Spironolactone 25 mg QD, Losartan 25 mg QD, and Jardiance. Plans to hopefully get the patient switched to PO Entresto prior/at discharge. Patient was just fitted for LifeVest but there are concerns about being able to do this on his own with his short term memory issues. Apparently assisted living facility will not help with this so I had asked care coordination to look into SNF placement for assistance with his life vest. Cardiology has had multiple at length discussions with family regarding options and ultimately patient's family including POA have decided he will go home without the life vest. I asked them to look into home health to help and this will also not work as they can only come out two days per week. Family/POA is aware of the risk of fatal arrhythmia and they have decided that he will go back to assisted living without the life vest. Cardiology reports need for ischemic work up as outpatient. Switched to PO lasix today, dose to be determined by cardiology Further medication adjustments per cardiology (2) Elevated troponin: Code(s): R77.8 - Other specified abnormalities of plasma proteins Status: Acute Assessment and Plan: -Patient denies any Chest pain. Patient with coronary artery disease equivalent -Had elevated troponin which could be related to possible congestive heart failure exacerbation -Cardiology consulted (3) Irregular cardiac rhythm: Code(s): I49.9 - Cardiac arrhythmia, unspecified Status: Acute Assessment and Plan: -Frequent PACs on telemetry. -had several runs of vtach overnight 07/30/21, cardiology increased metoprolol from 50 to 75 QD -cardiology following (4) Thoracic ascending aortic aneurysm: Code(s): I71.2 - Thoracic aortic aneurysm, without rupture Status:
[2021-08-03 12:00] VITALS: PULSE 73
--- NOTE | 2021-08-03 12:07 | PM.PNCARD ---
Progress Note: A&P Assessment and Plan (1) Acute CHF: Qualifiers: Heart failure type: unspecified Qualified Code(s): I50.9 - Heart failure, unspecified Code(s): I50.9 - Heart failure, unspecified Status: Acute Assessment and Plan: Patient admitted to the hospital with progressive worsening shortness of breath. Echo showed severe global LV systolic dysfunction, ejection fraction 20-25%, [id number] MR. Possible etiologies for LV dysfunction include coronary artery disease, poorly-controlled hypertension, untreated obstructive sleep apnea. Currently being treated for acute CHF exacerbation Lungs are clear, now on room air, minimal to no edema. On guideline directed medical therapy with metoprolol, enalapril, spironolactone and Jardiance. Blood pressure somewhat soft again today; will reduce furosemide to 40 mg daily and Entresto to half tablet BID Will pursue ischemic evaluation as an outpatient. External wearable defibrillator-LifeVest has been ordered and he was fitted. Unfortunately, due to patient's short-term memory deficit he does not remember being trained. Concern for patient's ability to operate the LifeVest appropriately/ troubleshoot alarms. Furthermore, his assisted living facility will not except the patient back to their care if he is wearing a life vest. I have discussed this with both the patient's daughter and sister at great length. There is a possibility for patient to be accepted to SNF following discharge which would allow him to be discharged with a LifeVest. However, both patient's sister and daughter want him to return to his assisted living facility and not to be transition to an SNF. They both verbalized and understand the risk of SCD The patient and his family decided to go back to [facility] without the LifeVest. OK for discharge today. Recommended that the patient by scale and check daily weights. Reviewed follow-up, medications, diet. I am concerned the patient will be confused about his medication changes. I strongly recommended he enlist the help of his family and place his medications in a weekly pill box to limit likelihood of confusion and noncompliance. (2) Thoracic aortic aneurysm without rupture: Code(s): I71.2 - Thoracic aortic aneurysm, without rupture Status: Acute Assessment and Plan: Patient has ascending aortic aneurysm with CT scan of the chest from 02/07/2021 showing aneurysm measuring up to 5.4 cm. Patient is approaching elective repair of the aneurysm. This will be managed as an outpatient. His candidacy for surgery will need to be addressed as an outpatient in collaboration with CT surgery due to his other comorbidities, including prognosis from Hodgkin lymphoma, and newly diagnosed CHF with severely reduced ejection fraction. At this time, strict blood pressure control is recommended. Try to maintain systolic blood pressure between 105-120 mmHg. Metoprolol succinate dose increased. (3) PAC (premature atrial contraction): Code(s): I49.1 - Atrial premature depolarization Status: Acute Assessment and Plan: Frequent PACs on telemetry. Continue to monitor for any other arrhythmias. Continue beta-sarika. (4) JONAH (obstructive sleep apnea): Code(s): G47.33 - Obstructive sleep apnea (adult) (pediatric) Status: Acute Assessment and Plan: Patient has not been compliant with CPAP. Recommend evaluation by sleep specialist for optimal treatment of obstructive sleep apnea. Untreated JONAH can cause and/or contribute to adverse cardiovascular events. (5) NSVT (nonsustained ventricular tachycardia): Code(s): I47.2 - Ventricular tachycardia Status: Acute Assessment and Plan: 16 beat run of nonsustained ventricular tachycardia noted on telemetry this admission. Potassium improved after supplementation. (6) Hypokalemia: Code(s): E87.6 - Hypokalemia
[2021-08-03 12:28] LABS: EDCOVIDSCREEN Negative (Negative)
== END 2021-08-03 13:46 | DRG 291 ==
LOC: ANHED 15:51 → ANH3MED 19:32
PROVIDERS: Internal Medicine Cardiovascular Disease; Nurse Practitioner; Physician Assistant; Admitting Provider Internal Medicine; Emergency Provider Emergency Medicine; PCP Internal Medicine; Visit Provider Physician Assistant
DX: I11.0 Hypertensive heart disease with heart failure (principal); I50.41 Acute combined systolic (congestive) and diastolic (congestive) heart failure; C81.14 Nodular sclerosis Hodgkin lymphoma, lymph nodes of axilla and upper limb; I47.2 Ventricular tachycardia; Z20.822 Contact with and (suspected) exposure to COVID-19; I42.0 Dilated cardiomyopathy; E87.6 Hypokalemia; I49.1 Atrial premature depolarization; I71.2 Thoracic aortic aneurysm, without rupture; G47.33 Obstructive sleep apnea (adult) (pediatric); K21.9 Gastro-esophageal reflux disease without esophagitis; F41.9 Anxiety disorder, unspecified; M19.90 Unspecified osteoarthritis, unspecified site; E66.9 Obesity, unspecified; Z68.30 Body mass index [BMI] 30.0-30.9, adult; Z86.718 Personal history of other venous thrombosis and embolism
CPT/HCPCS: 36415; 71045; 71046; 80048; 80053; 83735; 83880; 84484; 85025; 85027; 85610; 85730; 87040; 87426; 93005; 94640; 96365; 96366; 96367; 96372; 96375; 96376; 99285; A9270; C8929; C9803; G0378; J0456; J0696; J1650; J1940; J3475; Q9957; U0003; U0005

== ENCOUNTER 2021-08-11 11:14 | Outpatient (CLI) | payer MEDICARE, SELFPAY ==
[2021-08-11 11:51] LABS: Anion Gap 6 mmol/L (8-16); Blood Urea Nitrogen 25 mg/dL (9-20); Calcium 8.2 mg/dL (8.4-10.2); Carbon Dioxide 24 mmol/L (22-30); Chloride 112 mmol/L (98-107); Estimated Glomerular Filt Rate > 60; Glucose 135 mg/dL (65-110); Potassium 4.5 mmol/L (3.4-5.0); Sodium 142 mmol/L (137-145)
== END 2021-08-11 11:15 | disposition home or self-care (01) ==
PROVIDERS: PCP Internal Medicine; Visit Provider Internal Medicine Cardiovascular Disease
DX: I50.9 Heart failure, unspecified (principal)
CPT/HCPCS: 36415; 80048

== ENCOUNTER 2021-11-04 09:51 | Outpatient (CLI) | payer MEDICARE, SELFPAY ==
[2021-11-04 10:19] LABS: Basophils Absolute Auto 0.1 K/mm3 (0.0-0.1); Basophils Percent Auto 0.7 % (0.2-1.2); Eosinophils Absolute Auto 0.6 K/mm3 (0-0.3); Eosinophils Percent Auto 8.1 % (0-4.4); Hematocrit 41.9 % (42.0-52.0); Hemoglobin 13.3 g/dL (14.0-18.0); Immature Granulocyte Absolute 0.03 K/mm3 (0.00-0.031); Immature Granulocyte Percent A 0.4 % (0-0.5); Lymphocytes Absolute Auto 1.24 K/mm3 (0.9-3.2); Lymphocytes Percent Auto 17.8 % (18.3-44.2); Mean Corpuscular HGB Conc 31.7 g/dl (32-36); Mean Corpuscular Hemoglobin 26.4 pg (26-34); Mean Corpuscular Volume 83.1 fl (80-100); Mean Platelet Volume 9.3 fl (7.4-10.4); Monocytes Absolute Auto 0.7 K/mm3 (0.1-0.6); Monocytes Percent Auto 10.2 % (2.6-8.5); Neutrophils Absolute Auto 4.4 K/mm3 (1.3-6.7); Neutrophils Percent Auto 62.8 % (45.5-73.1); Platelet Count Result 170 k/mm3 (150-375); Red Blood Count 5.04 M/mm3 (4.6-6.20); Red Cell Distribution Width 18.5 % (11.5-14.5)
[2021-11-04 10:30] LABS: Alanine Aminotransferase 19 U/L (6-50); Alkaline Phosphatase 57 U/L (38-126); Anion Gap 7 mmol/L (8-16); Aspartate Amino Transferase 28 U/L (17-59); Bilirubin,Total 0.7 mg/dL (0.2-1.3); Blood Urea Nitrogen 21 mg/dL (9-20); Calcium 7.9 mg/dL (8.4-10.2); Carbon Dioxide 22 mmol/L (22-30); Chloride 110 mmol/L (98-107); Estimated Glomerular Filt Rate > 60; Glucose 115 mg/dL (65-110); Potassium 4.3 mmol/L (3.4-5.0); Sodium 139 mmol/L (137-145)
== END 2021-11-04 09:52 | disposition home or self-care (01) ==
LOC: ANHLAB 09:54
PROVIDERS: PCP Internal Medicine; Visit Provider Internal Medicine Cardiovascular Disease
DX: I42.9 Cardiomyopathy, unspecified (principal)
CPT/HCPCS: 36415; 80053; 85025

== ENCOUNTER 2022-01-14 13:36 | Outpatient (CLI) | payer MEDICARE, SELFPAY ==
[2022-01-14 14:09] LABS: Basophils Percent Auto 0.6 % (0.2-1.2); Eosinophils Absolute Auto 0.5 K/mm3 (0-0.3); Eosinophils Percent Auto 7.2 % (0-4.4); Hematocrit 46.6 % (42.0-52.0); Hemoglobin 14.3 g/dL (14.0-18.0); Immature Granulocyte Absolute 0.01 K/mm3 (0.00-0.031); Immature Granulocyte Percent A 0.1 % (0-0.5); Mean Corpuscular HGB Conc 30.7 g/dl (32-36); Mean Corpuscular Hemoglobin 26.6 pg (26-34); Mean Corpuscular Volume 86.6 fl (80-100); Mean Platelet Volume 9.3 fl (7.4-10.4); Monocytes Absolute Auto 0.8 K/mm3 (0.1-0.6); Monocytes Percent Auto 10.4 % (2.6-8.5); Neutrophils Absolute Auto 4.6 K/mm3 (1.3-6.7); Neutrophils Percent Auto 63.7 % (45.5-73.1); Platelet Count Result 180 k/mm3 (150-375); Red Blood Count 5.38 M/mm3 (4.6-6.20); Red Cell Distribution Width 14.8 % (11.5-14.5); White Blood Count 7.2 K/mm3 (4.5-10.0)
[2022-01-14 14:25] LABS: Alanine Aminotransferase 16 U/L (6-50); Albumin Level 4.3 g/dL (3.5-5.1); Alkaline Phosphatase 61 U/L (38-126); Anion Gap 8 mmol/L (8-16); Aspartate Amino Transferase 25 U/L (17-59); Bilirubin,Total 0.7 mg/dL (0.2-1.3); Blood Urea Nitrogen 20 mg/dL (9-20); Calcium 8.8 mg/dL (8.4-10.2); Carbon Dioxide 27 mmol/L (22-30); Chloride 107 mmol/L (98-107); Cholesterol 150 mg/dL (0-200); Estimated Glomerular Filt Rate > 60; Glucose 108 mg/dL (65-110); HDL Direct 54 mg/dL; Potassium 4.3 mmol/L (3.4-5.0); Sodium 142 mmol/L (137-145); Triglycerides 65 mg/dL (<150)
[2022-01-14 14:36] LABS: LDL Cholesterol Direct 66 mg/dL
== END 2022-01-14 13:37 | disposition home or self-care (01) ==
LOC: ANHLAB 13:43
PROVIDERS: PCP Internal Medicine; Visit Provider Internal Medicine Cardiovascular Disease
DX: I50.42 Chronic combined systolic (congestive) and diastolic (congestive) heart failure (principal)
CPT/HCPCS: 36415; 80053; 80061; 85025

== ENCOUNTER 2022-02-24 10:23 | Outpatient (CLI) | payer MEDICARE, SELFPAY ==
--- NOTE | ~2022-02-24 | CT_ITS ---
EXAMINATION: CT diagnostic chest w con DATE: 02/24/2022 10:58 INDICATION: Nodular sclerosing Hodgkin lymphoma TECHNIQUE: Transaxial computed tomographic images of the chest were obtained after the administration of 75 cc of Omnipaque 350 intravenous contrast. The dose-length product (DLP) was 761.94 mGy-cm. Ite rative reconstruction was used. COMPARISON: 02/07/2021 FINDINGS: There is mild dependent atelectasis. There are trace pleural effusions. No pneumothorax is identified. The heart size is normal. Calcified coronary artery atherosclerosis is noted. Left axilla ry lymphadenopathy persists without significant change. No new thoracic lymphadenopathy is identified . There is mild bilateral gynecomastia. There is a stable 5.4 cm fusiform aneurysm of the aortic arch . A right internal jugular Port-A-Cath ends with its tip in the distal superior vena cava. Cysts of t he visualized kidneys measure up to 4.5 cm on the left. IMPRESSION: 1. Stable left axillary lymphadenopathy, consistent with history of lymphoma. 2. Stable 5.4 cm fusiform aneurysm of the aortic arch. Reviewed, dictated and finalized at location B.
[2022-02-24 10:54] LABS: Estimated Glomerular Filt Rate > 60
== END 2022-02-24 10:24 | disposition home or self-care (01) ==
PROVIDERS: PCP Internal Medicine; Visit Provider Internal Medicine Hematology & Oncology
DX: C81.14 Nodular sclerosis Hodgkin lymphoma, lymph nodes of axilla and upper limb (principal); I71.4 Abdominal aortic aneurysm, without rupture
CPT/HCPCS: 71260; Q9967

== ENCOUNTER 2022-03-23 01:51 | Day surgery (SDC) | payer MEDICARE, SELFPAY ==
[2022-03-18 09:40] VITALS: BMI 36.1
[2022-03-18 10:26] VITALS: BMI 37.3
--- NOTE | 2022-03-18 10:36 | PC.NURSE ---
PRE-OP INSTRUCTIONS, PLEASE READ CAREFULLY Report to the Outpatient Waiting Room, entrance under the green pavilion located off [facility], at time _0700_ on date _03/23/22_. OR Time: _0900_. Time changes happen often and if your time is changed the preop area will call you the afternoon before. - You and your visitor will be asked to self-screen and do not enter if you have any COVID symptoms. - Only one visitor and NO children visitors are allowed at this time. - The patient visitor is requested to leave or wait in car when not with patient due to restrictions. - A mask is required within the hospital. Patients may have clear liquids (water, carbonated beverages, clear teas, apple juice) until 3 hours prior to surgery (0600 AM) with a maximum of 20 ounces. - No food from midnight until time of surgery Take the following medications with a SIP of water the morning of surgery: _BUSPIRONE, METOPROLOL, MIRTAZAPINE, ENTRESTO, VORTIOXETINE, LEAVE RIVASTIGMINE PATCH ON PT_ Medications to discontinue _PLAVIX 7 DAYS PRIOR TO SURGERY - LAST DOSE SHOULD OF BEEN 03/15/22_ Medications to discontinue _MULTIVITAMIN 3 DAYS PRIOR TO SURGERY, Date to take last dose 03/19/22_ Please no make-up, nail icelandic, hairspray, perfume, deodorant, or body powder the day of surgery. No jewelry (including any body piercings) or valuables the day of surgery, leave them at home. Please take a shower or bath the night before, or the morning of, surgery with an antibacterial soap. Wear comfortable, loose fitting clothing. - Jewelry must be removed prior to entering the operating room. Rings and piercings that are not removed may be cut off. - The hospital will not accept responsibility for valuables. - Please leave all valuables, including medications, at home the day of surgery. If you are going home after surgery, a licensed tow truck driver must drive you home. - NO public transportation without another adult. - We recommend that an adult stay with you for 24 hours following discharge. - We also recommend that you do not drive, make important decision, drink alcoholic beverages, or take any drugs that were not prescribed by your health care provider for at least 24 hours after your discharge time. Follow any additional instructions given to you from your surgeon. If you or anyone in your household have experienced Covid symptoms in the past week, please notify your surgeon or the nurse liaison at the phone number below for possible testing. Instructions faxed to _[facility]: PONCHO_and asked if any additional questions and then verbalized understanding. (INSTRUCTIONS GIVEN TO PT'S DAUGHTER (SEBLE) VIA PHONE) Patient advised to call surgeon office or pre surgery nurse liaison [phone] if any additional questions.
[2022-03-23] MEDS: LACTATED RINGERS 1,000 ML 30 ML IV CONT (07:15)
[2022-03-23 07:30] VITALS: BP 112/68; PULSE 74; RESP 16; TEMP 37; O2SAT 95
--- NOTE | 2022-03-23 07:37 | PM.IMHP ---
H&P: HPI History of Present Illness Date/Time: 03/23/22 07:37 Chief Complaint: lymphoma Narrative: Pt is a 71 y/o M c multiple med issues including lymphoma now in remission presenting for removal of RIJ VAD. Pt had VAD placed in 2018 for chemotx. Pt reports disease has been in remission for quite a while and VAD has not been is use for years . Pt denies any issues c VAD but would like it removed. Pt reports it is being regularly flushed. 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e family member before age 55 Mother Hypertension Family history of congestive heart failure Other Family history of elevated blood lipids Social History Social History Smoking status: Former smoker Tobacco type: cigarettes Second hand tobacco smoke exposure: No Alcohol intake: former Substance use: never Substance use type: does not use Living arrangements: assisted living Additional living arrangements comments: [facility] [phone] Spiritual care concerns: No Meds Home Medications and Allergies Home Medications Medication Instructions Recorded Confirmed Type multivitamin 1 tablet PO DAILY 04/11/19 03/18/22 History mirtazapine 15 mg tablet 15 mg PO DAILY #1 tablet 11/22/20 03/18/22 Rx vortioxetine 20 mg tablet 20 mg PO DAILY 03/12/21 03/18/22 History (Trintellix) buspirone 5 mg tablet 5 mg PO Q12HR 30 days #60 tabs 08/03/21 03/18/22 Rx empagliflozin 10 mg tablet 10 mg PO DAILY #30 tabs 08/03/21 03/18/22 Rx (Jardiance) furosemide 40 mg tablet 40 mg PO DAILY #30 tabs 08/03/21 03/18/22 Rx potassium chloride 20 mEq 20 meq PO DAILY #30 tabs 08/03/21 03/18/22 Rx tablet,extended release (K-Tab) spironolactone 25 mg tablet 25 mg PO QAM #30 tabs 08/03/21 03/18/22 Rx polysaccharide iron complex 150 mg See Rx Instructions .Route 08/22/21 03/18/22 Rx iron capsule (Ferrex) .COMPLEX #180 caps metoprolol succinate 25 mg 75 mg PO DAILY 08/29/21 03/18/22 History tablet,extended release 24 hr (Toprol XL) rivastigmine 4.6 mg/24 hour 4.6 mg transdermal DAILY 08/29/21 03/18/22 History transdermal patch lansoprazole 30 mg capsule,delayed 30 mg PO DAILY #90 caps 01/08/22 03/18/22 Rx release rosuvastatin 20 mg tablet 20 mg PO DAILY #90 tabs 01/08/22 03/18/22 Rx clopidogrel 75 mg tablet (Plavix) 75 mg PO DAILY #90 tabs 01/22/22 03/18/22 Rx aspirin 81 mg tablet,delayed 81 mg PO DAILY 03/18/22 03/18/22 History release benzonatate 100 mg capsule 100 mg PO Q8H PRN Cough 03/18/22 03/18/22 History sacubitril 49 mg-valsartan 51 mg 1 tablet BID 03/18/22 03/18/22 History tablet (Entresto) Allergies Allergy/AdvReac Type Severity Reaction Status Date / Time apricot Allergy Severe throat Verified 03/18/22 09:34 SWELLING Exam Const: General: cooperative, comfortable, no acute distress and ill appearing Nutritional Appearance: obese Chest: Other: R sided VAD - C/D/I Resp: Effort & Inspection: normal respiratory effort Auscultation: diminished lung sounds Cardio: Rate: regular rate Rhythm: regular rhythm GI: Inspection: normal to
--- NOTE | 2022-03-23 07:41 | WPDHPUPDATE1 ---
History and Physical Update Update Date/Time: 03/23/22 07:41 History and Physical has been reviewed, including an updated exam of the patient. There are NO changes in the patient's condition. Risks, benefits, and alternatives have been discussed and questions answered. Patient agrees to proceed with procedure.
--- NOTE | 2022-03-23 07:52 | WPDANESEPPF ---
Anes - Initial Pre Proc Eval Procedure: Operation Date: 03/23/22 09:00 Proposed Procedures p Removal Christian Cath - Laura Fonseca MD Date/Time: 03/23/22 07:52 Surgeon: Laura Fonseca MD Pre Op Diagnosis: nodular sclerosis hodgkin lymphoma Patient Data Age: 71 Gender: M Height: 1.79 m Weight: 119.77 kg Allergies Allergy/AdvReac Type Severity Reaction Status Date / Time apricot Allergy Severe throat Verified 03/18/22 09:34 SWELLING Home Medications Medication Instructions Recorded Confirmed Type multivitamin 1 tablet PO DAILY 04/11/19 03/18/22 History mirtazapine 15 mg tablet 15 mg PO DAILY #1 tablet 11/22/20 03/18/22 Rx vortioxetine 20 mg tablet 20 mg PO DAILY 03/12/21 03/18/22 History (Trintellix) buspirone 5 mg tablet 5 mg PO Q12HR 30 days #60 tabs 08/03/21 03/18/22 Rx empagliflozin 10 mg tablet 10 mg PO DAILY #30 tabs 08/03/21 03/18/22 Rx (Jardiance) furosemide 40 mg tablet 40 mg PO DAILY #30 tabs 08/03/21 03/18/22 Rx potassium chloride 20 mEq 20 meq PO DAILY #30 tabs 08/03/21 03/18/22 Rx tablet,extended release (K-Tab) spironolactone 25 mg tablet 25 mg PO QAM #30 tabs 08/03/21 03/18/22 Rx polysaccharide iron complex 150 mg See Rx Instructions .Route 08/22/21 03/18/22 Rx iron capsule (Ferrex) .COMPLEX #180 caps metoprolol succinate 25 mg 75 mg PO DAILY 08/29/21 03/18/22 History tablet,extended release 24 hr (Toprol XL) rivastigmine 4.6 mg/24 hour 4.6 mg transdermal DAILY 08/29/21 03/18/22 History transdermal patch lansoprazole 30 mg capsule,delayed 30 mg PO DAILY #90 caps 01/08/22 03/18/22 Rx release rosuvastatin 20 mg tablet 20 mg PO DAILY #90 tabs 01/08/22 03/18/22 Rx clopidogrel 75 mg tablet (Plavix) 75 mg PO DAILY #90 tabs 01/22/22 03/18/22 Rx aspirin 81 mg tablet,delayed 81 mg PO DAILY 03/18/22 03/18/22 History release benzonatate 100 mg capsule 100 mg PO Q8H PRN Cough 03/18/22 03/18/22 History sacubitril 49 mg-valsartan 51 mg 1 tablet BID 03/18/22 03/18/22 History tablet (Entresto) Patient hx anesthesia problems: none Family hx anesthesia problems: none Results Review: All pre-operative results and documents have been reviewed as part of the pre-operative evaluation. 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e family member before age 55 Mother Hypertension Family history of congestive heart failure Other Family history of elevated blood lipids Social History Social History Smoking status: Former smoker Tobacco type: cigarettes Second hand tobacco smoke exposure: No Alcohol intake: former Substance use: never Substance use type: does not use Living arrangements: assisted living Additional living arrangements comments: GANGA SCHWARTZ [facility] [phone] Spiritual care concerns: No Anes - Eval Final PreProcedure Day of Procedure 03/23/22 07:52 Patient weight: obese Heart: regular rate and rhythm Lungs: decreased breath sounds Airway: Mallampati scale class II Neurological: other (alert) Last oral intake: >/= 8 hours ASA classification: IV Emergent: no Anesthetic plan: proceed Anesthesia type and monitoring: general GIVS and standard monitoring Results Review: Ari
[2022-03-23 08:06] LABS: Glucose Point of Care 114 mg/dl (65-105)
[2022-03-23] MEDS: ceFAZolin 2 GM/D5W 50 ML 2 GM/50 ML BAG IVPB (08:18)
[2022-03-23] MEDS: BUPIVACAINE/EPINEPHRINE 0.25% 50 ML VIAL 20 ML INFILTRATE (08:32)
[2022-03-23 08:40] VITALS: BP 126/65; PULSE 68; RESP 18; O2SAT 94
--- NOTE | 2022-03-23 08:40 | P.OP_ITS ---
Procedure Note - Detailed Date of Procedure 03/23/22 Pre-op Diagnosis nodular sclerosis hodgkin lymphoma Post-op Diagnosis Same Procedure Performed removal RIJ VAD Surgeon Laura Fonseca MD Anesthesia Local Indications 71 y/o M s/p treatment for lymphoma now in remission. Pt had R sided VAD placed about 4 years ago. Findings RIJ VAD Description of Procedure The patient was taken to the operating room and placed in the supine position. The patient was then prepped and draped in the normal sterile fashion. A time- out was then done to verify the patient's identity, as well as the procedure being performed. I began by localizing the area of the previously placed port in the right chest. After the area was adequately anesthetized, I made an incision through the previous incision to gain access to the port in the subcutaneous tissue. I was then able to identify the port and using dissection with the Bovie cautery, I was able to free the reservoir from the subcutaneous pocket. The reservoir was being held in by 2 sutures and these were subsequently cut. I was then able to remove the reservoir from the pocket. I then removed the catheter from the right internal jugular vein in full. I then held pressure at the level the right internal jugular vein for approximately 5 minutes. Hemostasis was noted and I irrigated the pocket. I then closed the subcutaneous tissue with 3-0 Vicryl suture. The skin was closed with 4-0 Monocryl subcuticular suture. Dermabond was placed on the wound. The patient tolerated the procedure well and was alert and awake in the operating room postoperative. The patient will be sent to the recovery room in stable condition. Estimated Blood Loss 5 Drains No Packing No Pathology None sent Complications No immediate complications Condition Stable Disposition PACU [facility] Billing Surgery - Charge Forward: Surgery Billing
[2022-03-23 09:10] VITALS: BP 120/64; PULSE 65; RESP 16; O2SAT 96
[2022-03-23 09:39] VITALS: BP 117/61; PULSE 67; RESP 16
== END 2022-03-23 09:45 | disposition home or self-care (01) ==
PROVIDERS: PCP Internal Medicine; Visit Provider Surgery
PROC: (CPT 36589; principal; 2022-03-23 09:00)
DX: Z45.2 Encounter for adjustment and management of vascular access device (principal); Z85.71 Personal history of Hodgkin lymphoma; I10 Essential (primary) hypertension; G47.33 Obstructive sleep apnea (adult) (pediatric); K21.9 Gastro-esophageal reflux disease without esophagitis; F32.A Depression, unspecified; I71.21 Aneurysm of the ascending aorta, without rupture; Z86.718 Personal history of other venous thrombosis and embolism; Z87.891 Personal history of nicotine dependence; Z79.82 Long term (current) use of aspirin; Z79.84 Long term (current) use of oral hypoglycemic drugs; Z79.02 Long term (current) use of antithrombotics/antiplatelets
CPT/HCPCS: 36590; 82948; J0690; J2704; J7120

== ENCOUNTER 2022-07-24 12:48 | Outpatient (CLI) | payer MEDICARE, SELFPAY ==
--- NOTE | ~2022-07-24 | US_ITS ---
EXAMINATION: US venous doppler [facility] DATE: 07/24/2022 13:27 INDICATION: Left lower limb pain TECHNIQUE: De Jesus scale images without and with compression and Doppler images of the left lower extrem ity veins were obtained. COMPARISON: 10/17/2018 FINDINGS: The left common femoral vein, profunda femoral vein, femoral vein, popliteal vein, peroneal trunk, posterior tibial veins, and greater saphenous vein are patent. IMPRESSION: 1. Patent left lower extremity veins. No evidence of deep venous thrombosis. Reviewed, dictated and finalized at location B. Y [employer]ADLE TENDER
== END 2022-07-24 12:49 | disposition home or self-care (01) ==
LOC: ANHIMG 12:51
PROVIDERS: PCP Internal Medicine; Visit Provider Nurse Practitioner Family
DX: M79.605 Pain in left leg (principal); M79.89 Other specified soft tissue disorders
CPT/HCPCS: 93971

== ENCOUNTER 2023-02-24 08:24 | Outpatient (CLI) | payer MEDICARE, SELFPAY ==
--- NOTE | ~2023-02-24 | CT_ITS ---
EXAMINATION: CT diagnostic chest w con DATE: 02/24/2023 09:06 INDICATION: Nodular sclerosing Hodgkin lymphoma TECHNIQUE: Transaxial computed tomographic images of the chest were obtained after the administration of 75 cc of Omnipaque 350 intravenous contrast. The dose-length product (DLP) was 880.82 mGy-cm. Ite rative reconstruction was used. COMPARISON: 02/24/2022 FINDINGS: There is mild dependent atelectasis. There are chronic trace pleural effusions. No pneumoth orax is identified. There is stable left axillary lymphadenopathy. The heart size is normal. There is a stable 5.3 cm fusiform aneurysm of the aortic arch. Bilateral gynecomastia is noted. There is calc ified coronary artery atherosclerosis. The right internal jugular Port-A-Cath has been removed. Cysts of the visualized kidneys measure up to 4.2 cm on the left. There are bridging osteophytes at multip le levels in the spine, consistent with diffuse idiopathic skeletal hyperostosis (DISH). IMPRESSION: 1. Stable left axillary lymphadenopathy, consistent with history of lymphoma. 2. Stable fusiform aneurysm of the aortic arch. Reviewed, dictated and finalized at location F.
[2023-02-24 08:58] LABS: Estimated Glomerular Filt Rate 59
== END 2023-02-24 08:25 | disposition home or self-care (01) ==
PROVIDERS: PCP Family Medicine; Visit Provider Internal Medicine Hematology & Oncology
DX: C81.14 Nodular sclerosis Hodgkin lymphoma, lymph nodes of axilla and upper limb (principal)
CPT/HCPCS: 71260; Q9967

== ENCOUNTER 2023-03-03 13:40 | Outpatient (CLI) | payer MEDICARE, SELFPAY ==
[2023-03-03 13:53] LABS: Basophils Absolute Auto 0.1 K/mm3 (0.0-0.1); Basophils Percent Auto 0.8 % (0.2-1.2); Eosinophils Absolute Auto 0.4 K/mm3 (0-0.3); Eosinophils Percent Auto 4.6 % (0-4.4); Hematocrit 51.6 % (42.0-52.0); Hemoglobin 16.9 g/dL (14.0-18.0); Immature Granulocyte Absolute 0.06 K/mm3 (0.00-0.031); Immature Granulocyte Percent A 0.7 % (0-0.5); Lymphocytes Absolute Auto 1.36 K/mm3 (0.9-3.2); Lymphocytes Percent Auto 15.7 % (18.3-44.2); Mean Corpuscular HGB Conc 32.8 g/dl (32-36); Mean Corpuscular Hemoglobin 29.3 pg (26-34); Mean Corpuscular Volume 89.6 fl (80-100); Mean Platelet Volume 9.5 fl (7.4-10.4); Monocytes Absolute Auto 0.8 K/mm3 (0.1-0.6); Monocytes Percent Auto 9.5 % (2.6-8.5); Neutrophils Percent Auto 68.7 % (45.5-73.1); Platelet Count Result 195 k/mm3 (150-375); Red Blood Count 5.76 M/mm3 (4.6-6.20); Red Cell Distribution Width 13.9 % (11.5-14.5); White Blood Count 8.7 K/mm3 (4.5-10.0)
[2023-03-03 14:06] LABS: Anion Gap 13 mmol/L (8-16); Carbon Dioxide 26 mmol/L (22-30); Chloride 103 mmol/L (98-109); Potassium 4.5 mmol/L (3.5-4.9); Sodium 142 mmol/L (138-146)
[2023-03-03 14:07] LABS: Blood Urea Nitrogen 24 mg/dL (8-26); Estimated Glomerular Filt Rate 58; Glucose 111 mg/dL (70-105); Ionized Calcium (POC) 1.16 mmol/L (1.11-1.31)
[2023-03-03 17:21] LABS: Alanine Aminotransferase 24 U/L (6-50); Albumin Level 4.5 g/dL (3.5-5.1); Alkaline Phosphatase 66 U/L (38-126); Aspartate Amino Transferase 28 U/L (17-59); Bilirubin,Total 0.8 mg/dL (0.2-1.3); Calcium 8.7 mg/dL (8.4-10.2); Lactate Dehydrogenase 209 U/L (120-246)
== END 2023-03-03 13:41 | disposition home or self-care (01) ==
LOC: ANHLAB 13:41
PROVIDERS: PCP Family Medicine; Visit Provider Internal Medicine Hematology & Oncology
DX: C81.14 Nodular sclerosis Hodgkin lymphoma, lymph nodes of axilla and upper limb (principal)
CPT/HCPCS: 36415; 80047; 80053; 83615; 85025

== ENCOUNTER 2023-05-11 14:50 | Outpatient (CLI) | payer MEDICARE, SELFPAY ==
--- NOTE | ~2023-05-11 | XR_ITS ---
XR chest 2V 05/11/2023 15:20 Indication: Cough Procedure: PA and lateral views of the chest Comparison: Comparison to multiple prior studies sequentially, with oldest reviewed study dated 07/07. Findings: Cardiomegaly. Bibasilar infiltrates may represent atelectasis or pneumonia. No pleural effu gayathri or pneumothorax. No acute osseous abnormality. Moderate thoracic spondylosis. Mild dextroscolios is. Impression: 1: Bibasilar infiltrates may represent atelectasis or pneumonia. Reviewed, dictated and finalized at location L. OR [employer]ER Impression: 1: Bibasilar infiltrates may represent atelectasis or pneumonia.
== END 2023-05-11 14:51 | disposition home or self-care (01) ==
PROVIDERS: PCP Nurse Practitioner Family; Visit Provider Nurse Practitioner Family
DX: R05.9 Cough, unspecified (principal); R07.89 Other chest pain; R91.8 Other nonspecific abnormal finding of lung field
CPT/HCPCS: 71046

== ENCOUNTER 2023-05-26 08:08 | Observation (INO) | payer MEDICARE, SELFPAY ==
[2023-05-26] VITALS (26 sets, daily range): BP systolic 99–154; BP diastolic 58–88; PULSE 62–91; RESP 17–36; TEMP 36.3–36.8; O2SAT 93–100
--- NOTE | ~2023-05-26 | XR_ITS ---
XR chest 2V 05/26/2023 09:40 Indication: Shortness of breath. Right lateral chest pain Procedure: 2 view chest Comparison: Comparison to multiple prior studies sequentially, with oldest reviewed study dated 09/2021. Findings: Cardiomegaly. No focal air space disease, pulmonary edema, pleural effusion or suspected pn eumothorax. Moderate thoracic spondylosis. No pleural effusion or pneumothorax. No acute osseous abno rmality. Impression: 1: No acute cardiopulmonary disease. Reviewed, dictated and finalized at location B. AMBULANCE DRIVER Impression: 1: No acute cardiopulmonary disease.
--- NOTE | ~2023-05-26 | US_ITS ---
EXAMINATION:US venous doppler LE BI INDICATION:Acute pulmonary embolism TECHNIQUE: Multiple grayscale, color flow and Doppler images of the right and left lower extremity de ep venous systems were obtained and reviewed. COMPARISON:No prior studies for comparison. FINDINGS: The common femoral, superficial femoral and popliteal veins demonstrate normal respiratory variation, augmentation and compressibility. Color flow is also seen within the posterior tibial, pe roneal, greater saphenous and profunda veins. Prior history of left greater saphenous vein stripping. IMPRESSION: 1: No lower extremity deep venous thrombosis. Reviewed, dictated and finalized at location L. A DELIVERY
--- NOTE | ~2023-05-26 | CT_ITS ---
EXAMINATION: CTA chest PE abdomen pel DATE: 05/26/2023 09:36 COLLECTION ADVISOR INDICATION: Right-sided chest pain and abdominal pain. TECHNIQUE: Computed tomographic angiography (CTA) of the chest, abdomen, and pelvis was performed wit hout and with 100 mL Omnipaque-350 intravenous contrast. The dose-length product was 2345.24 mGy-cm. Maximum intensity projection 3D-reconstructions of the aorta and other arteries were constructed by cricket arizmendi technologist on a separate workstation. COMPARISON: None. FINDINGS: CHEST CTA: There is a fusiform ascending thoracic aortic aneurysm measuring up to 5.7 cm. Study not optimized fo r evaluation of dissection, although no gross dissection is identified. Study technically adequate. T here are small filling defects right lower lobe segmental and subsegmental pulmonary arteries, consis tent with pulmonary embolism, small thrombus burden. Cardiomegaly. No significant pleural or pericard ial effusion. Small hiatal hernia. No thoracic lymphadenopathy. There is diffuse idiopathic skeletal hyperostosis (DISH) of the thoracic spine. Bibasilar atelectasis. Calcified granuloma left upper lobe . No endobronchial lesions. No focal airspace consolidation to suggest pneumonia. No pneumothorax. ABDOMEN AND PELVIS CTA: No evidence for aortic aneurysm or dissection. The celiac axis, SMA, renal arteries and ISAI are paten t. There are bilateral renal cysts. There are gallstones. The liver, spleen, pancreas, adrenal glands ar e unremarkable. Nonobstructive bowel gas pattern. No lymphadenopathy. No free air or free fluid. Ther e is a fat-containing right inguinal hernia. There is a right total hip arthroplasty. Moderate osteoa rthritis of the left hip. IMPRESSION: 1. Small filling defects right lower lobe pulmonary artery as well as segmental right lower lobe pulm onary arteries, consistent with embolism, small thrombus burden 2: Fusiform ascending thoracic aortic aneurysm involving the aortic arch measuring up to 5.7 cm.. 3: Cholelithiasis. Reviewed, dictated and finalized at location B. ECTION ADVISOR IMPRESSION: 1. Small filling defects right lower lobe pulmonary artery as well as segmental right lower lobe pulmonary arteries, consistent with embolism, small thrombus burden 2: Fusiform ascending thoracic aortic aneurysm involving the aortic arch measu ring up to 5.7 cm.. 3: Cholelithiasis.
--- NOTE | ~2023-05-26 | XR_ITS ---
[XR ribs RT 2V ] INDICATION: Right rib pain TECHNIQUE: Frontal projection of the upper right ribs, frontal projection of the lower right ribs, ob lique projection of all the right ribs, frontal inspiratory chest x-ray for interpretation. FINDINGS: There is a right ninth rib fracture. There is right basilar atelectasis. No pneumothorax.. IMPRESSION: 1: Acute right ninth rib fracture. 2: Right basilar atelectasis. Reviewed, dictated and finalized at location L. CARE MANAGER
--- NOTE | 2023-05-26 08:10 | ECG_ITS ---
Measurements Intervals [place] Rate: 65 P: VA: 0 QRS: -44 QRSD: 102 T: 35 QT: 396 QTc: 413 Interpretive Statements RHYTHM INDETERMINATE; MAY BE WANDERING ATRIAL PACEMAKER PATTERN CONSISTENT WITH PULMONARY DISEASE INFERIOR MYOCARDIAL INFARCTION , OF INDETERMINATE AGE [40+ ms Q WAVE AND/OR ST/T ABNORMALITY IN II/aVF] COMPARED TO ECG 07/25/2021 14:45:42 NO SIGNIFICANT CHANGE. Electronically Signed On 05-26-2023 12:08:10 SET DESIGNER by Marlin Pitt M.D.
--- NOTE | 2023-05-26 08:18 | ED.GENADULT ---
HPI - General Adult General Chief complaint: Shortness of Breath/Dyspnea Stated complaint: trouble breathing Time Seen by Provider: 05/26/23 08:11 History of Present Illness HPI narrative: [age] year old male with history of congestive heart failure, dementia and COPD presenting to the emergency department for evaluation of worsened right-sided chest pain. Patient reports he was diagnosed with pneumonia just before but did not start his antibiotics until Wednesday after . Patient was on antibiotics for about 7 days. Throughout the course of the illness patient has been complaining of right-sided chest pain but states that his pain has significantly worsened over the last few days. Related Data Home Medications Medication Instructions Recorded Confirmed multivitamin 1 tablet PO DAILY 04/11/19 05/26/23 vortioxetine 20 mg tablet 20 mg PO DAILY 03/12/21 05/26/23 (Trintellix) metoprolol succinate 25 mg 75 mg PO DAILY 08/29/21 05/26/23 tablet,extended release 24 hr (Toprol XL) rivastigmine 4.6 mg/24 hour 4.6 mg transdermal DAILY 08/29/21 05/26/23 transdermal patch sacubitril 49 mg-valsartan 51 mg 1 tablet BID 03/18/22 05/26/23 tablet (Entresto) Allergies Allergy/AdvReac Type Severity Reaction Status Date / Time apricot Allergy Severe throat Verified 05/26/23 12:51 SWELLING 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e family member before age 55 Mother Hypertension Family history of congestive heart failure Other Family history of elevated blood lipids Social History Social History Smoking status: Never smoker Second hand tobacco smoke exposure: No Alcohol intake: former Substance use: never Substance use type: does not use Lack of Transportation: No Lack of Food: Never True Current Housing: I Have Housing Concerned About Future Housing: No Difficulty Paying Gas/Electric Bills: No Difficulty Paying for Meds: No Currently Unemployed: No Education: Bachelor's Degree Difficulty w/ Childcare or Family Care: No Living arrangements: assisted living Additional living arrangements comments: [facility] [phone] Occupation/Education: retired Gender identity (if verbalized by the patient): Male Spiritual care concerns: No Exam Narrative: APPEARANCE: uncomfortable appearing HEAD: normocephalic, atraumatic. EYES: PERRLA/EOMI, conjunctivae clear. NOSE: Normal no drainage EARS:TMS clear with good light reflex. THROAT: Pharynx clear, no exudate. NECK: Supple. No adenopathy, no masses. RESPIRATORY: Airway patent, respirations nonlabored. Clear to auscultation bilaterally, no rales, rhonchi, wheezing. CARDIOVASCULAR: Regular rate and rhythm without murmurs rubs or gallops. ABDOMINAL: Soft, nontender, nondistended, normal bowel sounds MUSCULOSKELETAL: reproducible right chest wall tenderness to palpation NEURO: Alert. Cranial nerves II through XII intact. Grossly intact SKIN: Warm, dry. Normal Color Course Course Emergency Course: 73-year-old male presenting to the
[2023-05-26] MEDS: MORPHINE SULFATE (*CRX) 4 MG/ML INJ IV PUSH (08:29)
[2023-05-26] MEDS: ALBUTEROL SULFATE NEB 2.5 MG/3 ML INH INHALATION (08:30)
[2023-05-26 08:55] LABS: Basophils Absolute Auto 0.1 K/mm3 (0.0-0.1); Basophils Percent Auto 0.6 % (0.2-1.2); Eosinophils Absolute Auto 0.3 K/mm3 (0-0.3); Eosinophils Percent Auto 3.3 % (0-4.4); Hematocrit 44.9 % (42.0-52.0); Hemoglobin 15.1 g/dL (14.0-18.0); Immature Granulocyte Absolute 0.07 K/mm3 (0.00-0.031); Immature Granulocyte Percent A 0.9 % (0-0.5); Lymphocytes Absolute Auto 1.39 K/mm3 (0.9-3.2); Lymphocytes Percent Auto 17.1 % (18.3-44.2); Mean Corpuscular HGB Conc 33.6 g/dl (32-36); Mean Corpuscular Volume 86.2 fl (80-100); Mean Platelet Volume 9.6 fl (7.4-10.4); Monocytes Absolute Auto 0.7 K/mm3 (0.1-0.6); Monocytes Percent Auto 8.9 % (2.6-8.5); Neutrophils Absolute Auto 5.6 K/mm3 (1.3-6.7); Neutrophils Percent Auto 69.2 % (45.5-73.1); Platelet Count Result 227 k/mm3 (150-375); Red Blood Count 5.21 M/mm3 (4.6-6.20); Red Cell Distribution Width 13.6 % (11.5-14.5); White Blood Count 8.1 K/mm3 (4.5-10.0)
[2023-05-26 09:04] LABS: Lactic Acid Reflex 2.9 mmol/L (0.7-2.0)
[2023-05-26 09:06] LABS: Alanine Aminotransferase 32 U/L (6-50); Albumin Level 3.9 g/dL (3.5-5.1); Alkaline Phosphatase 68 U/L (38-126); Anion Gap 12 mmol/L (8-16); Aspartate Amino Transferase 38 U/L (17-59); Bilirubin,Total 0.7 mg/dL (0.2-1.3); Blood Urea Nitrogen 15 mg/dL (9-20); Carbon Dioxide 19 mmol/L (22-30); Chloride 108 mmol/L (98-107); Estimated CRCL calculation 77 ml/min; Estimated Glomerular Filt Rate > 60; Glucose 121 mg/dL (65-110); Potassium 4.1 mmol/L (3.4-5.0); Sodium 139 mmol/L (137-145)
[2023-05-26 09:08] LABS: Partial Thromboplastin Time 26.6 SECONDS (22.3-36.8); Prothrombin Time 13.3 Seconds (11.1-14.7)
[2023-05-26 09:11] LABS: Influenza A QL RT-PCR Negative (Negative); Influenza B QL RT-PCR Negative (Negative); RSV RNA, RT-PCR Negative (Negative); SARS-CoV-2 RNA PCR Negative (Negative)
[2023-05-26 09:17] LABS: NT Pro B Type Natriuretic Pept 190 pg/mL (19.9-100); Troponin I 0.015 ng/mL (0.000-0.034)
[2023-05-26] MEDS: HEPARIN SOD/D5W 100 UNITS/ML 25,000 UNITS/250 ML BAG 15 UNITS IV CONT (10:41)
[2023-05-26] MEDS: HEPARIN SODIUM 5,000 UNITS/ML VIAL 7500 UNITS IV PUSH (10:42)
[2023-05-26 11:53] LABS: Reflex Lactic Acid Yes or No Add Lactic
[2023-05-26 12:13] LABS: Troponin I 0.015 ng/mL (0.000-0.034)
[2023-05-26 12:21] LABS: Lactic Acid 1.7 mmol/L (0.7-2.0)
[2023-05-26] MEDS: HYDROmorphone HCL INJ (*CRX) 1 MG/ML SYR 0.5 MG IV PUSH (13:00)
[2023-05-26 17:15] LABS: Partial Thromboplastin Time 125.4 SECONDS (22.3-36.8)
[2023-05-26 18:06] LABS: Appearance Urine Clear (Clear); Bacteria Urine None Seen /hpf; Bilirubin Urine Negative (Negative); Blood Urine 2+ (Negative); Color Urine Yellow (Yellow); Glucose Urine UA 3+ mg/dL (Negative); Ketones Urine Negative (Negative); Leukocyte Esterase Ur Negative LEU/UL (Negative); Nitrate Urine Negative (Negative); Non Pathogenic Casts 0-2; Protein Urine Negative (Negative); Squamous Epithelial Cell Urine None seen /hpf (Few); Urobilinogen Urine 0.2 mg/dL (<2.0); WBC Urine 0-5 /hpf
[2023-05-26 18:09] LABS: Add Urine Microscopic? YES; Specific Grav Ur 1.066 (1.001-1.035)
--- NOTE | 2023-05-26 21:44 | PM.IMHP ---
H&P: HPI History of Present Illness Date/Time: 05/26/23 21:44 Chief Complaint: Back Pain/Posterior Chest Wall Pain Narrative: 73 y/o M presents here with midback pain on the right with PMH of CHF, COPD, dementia, HTN, nodular sclerosis hodgkin lymphoma, DVT and an ascending aortic aneurysm. Patient was recently diagnosed with pneumonia on 05/11, placed on oral atb x7d. Patient reports that he completed this course and symptoms resolved. However, in the last few days he has begun complaining of R upper back pain, just below scapula that worsens with activity/specific movements and is alleviated with rest/holding still. Reported to ED provider that this upper back pain had been present throughout his recent pneumonia course. He is currently denying any associated chest pain (anterior), palpitations, or SOB. Does report that he has been less active recently due to the pna and now because of the pain. Pain is currently a 5-6/10 at rest and 8-9/10 with activity, non-radiating, and continuing to have the same aggravating/alleviating factors. No N/V/D, fever, or body aches. Workup revealed that patient's recent PNA had resolved, but there was a filling defect of the R lower lobe that is consistent with a PE with small thrombus burden. 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 Elects his daughter, Aislinn Beaver, as his decision maker. Code Status: Full Code. Smoking status: Never smoker Second hand tobacco smoke exposure: No Alcohol intake: former Substance use: never Substance use type: does not use Lack of Transportation: No Lack of Food: Never True Current Housing: I Have Housing Concerned About Future Housing: No Difficulty Paying Gas/Electric Bills: No Difficulty Paying for Meds: No Currently Unemployed: No Education: Bachelor's Degree Difficulty w/ Childcare or Family Care: No Living arrangements: assisted living Additional living arrangements comments: [facility] [phone] Occupation/Education: retired Gender identity (if verbalized by the patient): Male Spiritual care concerns: No Meds Home Medications and Allergies Home Medications Medication Instructions Recorded Confirmed Type multivitamin 1 tablet PO DAILY 04/11/19 05/26/23 History mirtazapine 15 mg tablet 15 mg PO DAILY #1 tablet 11/22/20 05/26/23 Rx vortioxetine 20 mg tablet 20 mg PO DAILY 03/12/21 05/26/23 History (Trintellix) buspirone 5 mg tablet 5 mg PO Q12HR 30 days #60 tabs 08/03/21 05/26/23 Rx empagliflozin 10 mg tablet 10 mg PO DAILY #30 tabs 08/03/21 05/26/23 Rx (Jardiance) furosemide 40 mg tablet 40 mg PO DAILY #30 tabs 08/03/21 05/26/23 Rx potassium chloride 20 mEq 20 meq PO DAILY #30 tabs 08/03/21 05/26/23 Rx tablet,extended release (K-Tab) spironolacto
--- NOTE | 2023-05-26 23:26 | PC.NURSE ---
Ambulated in hallway per his request with gait belt and 1 contact gaurd assist without shortness of breath or complaints.
[2023-05-27] VITALS (13 sets, daily range): BP systolic 100–132; BP diastolic 52–65; PULSE 56–84; RESP 16–20; TEMP 35.8–36.8; O2SAT 93–98
[2023-05-27 01:26] LABS: Partial Thromboplastin Time 82.9 SECONDS (22.3-36.8)
[2023-05-27] MEDS: HYDROmorphone HCL INJ (*CRX) 1 MG/ML SYR 0.5 MG IV PUSH (01:28)
[2023-05-27] MEDS: HEPARIN SOD/D5W 100 UNITS/ML 25,000 UNITS/250 ML BAG 13 UNITS IV CONT (04:32)
[2023-05-27 07:06] LABS: Basophils Absolute Auto 0.1 K/mm3 (0.0-0.1); Basophils Percent Auto 0.9 % (0.2-1.2); Eosinophils Absolute Auto 0.3 K/mm3 (0-0.3); Eosinophils Percent Auto 4.8 % (0-4.4); Hematocrit 43.5 % (42.0-52.0); Hemoglobin 14.1 g/dL (14.0-18.0); Immature Granulocyte Absolute 0.06 K/mm3 (0.00-0.031); Immature Granulocyte Percent A 0.9 % (0-0.5); Lymphocytes Absolute Auto 1.07 K/mm3 (0.9-3.2); Lymphocytes Percent Auto 15.4 % (18.3-44.2); Mean Corpuscular HGB Conc 32.4 g/dl (32-36); Mean Corpuscular Hemoglobin 29.2 pg (26-34); Mean Corpuscular Volume 90.1 fl (80-100); Mean Platelet Volume 9.7 fl (7.4-10.4); Monocytes Absolute Auto 0.6 K/mm3 (0.1-0.6); Monocytes Percent Auto 9.1 % (2.6-8.5); Neutrophils Absolute Auto 4.8 K/mm3 (1.3-6.7); Neutrophils Percent Auto 68.9 % (45.5-73.1); Platelet Count Result 164 k/mm3 (150-375); Red Blood Count 4.83 M/mm3 (4.6-6.20); Red Cell Distribution Width 13.9 % (11.5-14.5); White Blood Count 6.9 K/mm3 (4.5-10.0)
[2023-05-27 07:32] LABS: Partial Thromboplastin Time 83.9 SECONDS (22.3-36.8)
[2023-05-27 07:37] LABS: Alanine Aminotransferase 26 U/L (6-50); Albumin Level 3.5 g/dL (3.5-5.1); Alkaline Phosphatase 62 U/L (38-126); Anion Gap 6 mmol/L (8-16); Aspartate Amino Transferase 29 U/L (17-59); Bilirubin,Total 0.7 mg/dL (0.2-1.3); Blood Urea Nitrogen 15 mg/dL (9-20); Carbon Dioxide 24 mmol/L (22-30); Chloride 108 mmol/L (98-107); Estimated CRCL calculation 83 ml/min; Estimated Glomerular Filt Rate > 60; Glucose 113 mg/dL (65-110); Sodium 138 mmol/L (137-145)
--- NOTE | 2023-05-27 09:10 | PM.IMPN ---
Progress Note: A&P Assessment and Plan (1) Pulmonary embolism: Qualifiers: Pulmonary embolism type: single subsegmental (without acute cor pulmonale) Qualified Code(s): I26.93 - Single subsegmental pulmonary embolism without acute cor pulmonale Code(s): I26.99 - Other pulmonary embolism without acute cor pulmonale Status: Acute Assessment and Plan: Patient presents with right flank pain and shortness of breath. The symptoms were present for about 10 days. He did complete course of antibiotics possible pneumonia. Chest x-ray was clear. CTA of the chest showed a small filling defect in the right lower lobe as well as segmental right lower lobe pulmonary arteries consistent with embolism. It is a small clot burden. He was started on heparin drip. He remains on room air. Hemoglobin stable. He has a history of falls. He states he does not have a history of a VTE but past medical history does show he had a DVT in the past. He is on Plavix but does not have documented CAD or CVA history. Carotid ultrasound a few years ago showed less than 50% stenosis in the bilateral internal carotid arteries. As such will switch patient over from heparin to Eliquis today. Continue to hold Plavix. Check echocardiogram. Check lower extremity venous Doppler. Start PT and OT since he has had falls and now will be on Eliquis. (2) Flank pain: Code(s): R10.9 - Unspecified abdominal pain Status: Acute Assessment and Plan: Patient with palpable right flank pain. Given the recent fall, concern for occult rib fracture. Will check rib x-ray. If negative, suspect that his pain is related to PE. Continue symptomatic care. (3) Thoracic aortic aneurysm without rupture: Qualifiers: Thoracic aorta location: ascending aorta Qualified Code(s): I71.21 - Aneurysm of the ascending aorta, without rupture Code(s): I71.2 - Thoracic aortic aneurysm, without rupture Status: Acute Assessment and Plan: CT redemonstrated fusiform ascending aortic aneurysm (5.7 cm) without gross dissection, exam not optimized to assess this. CT chest showing 5.3 in February 2023 and 5.4 in February 2022. Patient was educated on s/sx to alert staff with. Plan for him to follow up with Dr Farris at [place]. Will place images on a disc. (4) Chronic kidney disease: Qualifiers: Chronic kidney disease stage: stage 3 (moderate) Chronic kidney disease stage 3 subtype: stage 3a (GFR 45-59) Qualified Code(s): N18.31 - Chronic kidney disease, stage 3a Code(s): N18.9 - Chronic kidney disease, unspecified Status: Acute Assessment and Plan: Patient with CKD. Creatinine runs 1-1.3. Creatinine 1.0 on admission is decreased to 0.9 today. Follow. (5) HTN (hypertension): Qualifiers: Hypertension type: essential hypertension Qualified Code(s): I10 - Essential (primary) hypertension Code(s): I10 - Essential (primary) hypertension Status: Acute Assessment and Plan: Patient's blood pressure was reviewed on 05/27 Blood pressure remains well controlled. Will continue to monitor (6) Prediabetes: Code(s): R73.03 - Prediabetes Status: Acute Assessment and Plan: The patient's blood glucose was reviewed on 05/27 Glucose remains well controlled. Continue to monitor (7) Intertrigo: Code(s): L30.4 - Erythema intertrigo Status: Acute Assessment and Plan: Noted. Will resume anti-fungal powder. Plan Home Meds/Chronic Conditions - CHF: continue Entresto, Toprol, Lasix and spironolactone, monitor I&Os - dementia: continue Remeron and Exelon patch - HLD: continue rosuvastatin - depression: continue Trintellix - supplements: continue iron, multi, and K Diet: heart healthy GI Prophylaxis: continue home lansoprazole DVT Prophylaxis: Eliquis Lines: pIV Code Status: Full Code Subjective Date/time seen:
[2023-05-27] MEDS: ACETAMINOPHEN 325 MG TABLET 650 MG PO (09:43)
[2023-05-27] MEDS: ROSUVASTATIN 10 MG TABLET 20 MG PO (09:44)
[2023-05-27] MEDS: MULTIVITAMINS THERAPEUTIC TAB (*BKC) 1 TABLET PO (09:44)
[2023-05-27] MEDS: METOPROLOL SUCCINATE EXT REL 25 MG TABCR 75 MG PO (09:44)
[2023-05-27] MEDS: APIXABAN 5 MG TABLET 10 MG PO ×2 (09:45→20:22)
[2023-05-27] MEDS: POLYSACCHARIDE IRON COMPLEX 150 MG CAPSULE PO ×2 (09:45→17:22)
[2023-05-27] MEDS: FUROSEMIDE 40 MG TABLET PO (09:45)
[2023-05-27] MEDS: busPIRone HCL 5 MG TABLET PO ×2 (09:45→20:22)
[2023-05-27] MEDS: MIRTAZAPINE 15 MG TABLET PO (09:45)
[2023-05-27] MEDS: POTASSIUM CHLORIDE 20 MEQ ER TABLET PO (09:46)
[2023-05-27] MEDS: RIVASTIGMINE TARTRATE 4.6 MG PATCH 1 PATCH TRANSDERM (09:47)
[2023-05-27] MEDS: SPIRONOLACTONE 25 MG TABLET PO (09:47)
[2023-05-27 10:52] LABS: Hemoglobin A1C 5.8 % (<5.7)
[2023-05-27] MEDS: TOLNAFTATE 1% POWDER 45 GM BTL 1 APPLIC TOPICAL ×2 (13:19→20:24)
--- NOTE | 2023-05-27 18:43 | ADMGEN ---
This patient, Og Beaver, was admitted to 2 Medical Room 242-01. Patient/family oriented to hospital policies and general routines including ID bracelet, bed and alarms, visiting hours, pain management, procedures, bathroom and other care routines, personal items, smoking policy, room service/diet, and visiting hours. Information on how to activate the Rapid Response Team has been discussed. Patient/Family are encouraged to report perceived risks to care and to ask questions if they do not understand what they are told or what they should do.
[2023-05-27] MEDS: SACUBITRIL/VALSARTAN 49-51 MG TABLET 1 TABLET PO (20:22)
--- NOTE | 2023-05-28 | ECHO_ITS ---
Patient Info Name: Og Beaver Age: 73 years : 1950 Gender: Male Ht: 70 in Wt: 272 lbs BSA: 2.52 m2 HR: 56 bpm BP: 101 / 48 mmHg Heart Rhythm: Sinus Rhythm Technical Quality: Fair Exam Date: 05/28/2023 11:24 AM Exam Location: Echo Lab Exam Room: 242 Patient Status: Inpatient Admit Date: 05/26/2023 Staff Ordering Physician: Radhames Nunes MD Tractor Driver Teamster: Tamar Braun RDCS Attending Provider: Giovanna Steve MD Exam Type: CA echo dop color flow w con Study Info Indications - PE Complete two-dimensional, color flow and Doppler transthoracic echocardiogram is performed with contrast to opacify the left ventricle and to improve the deliniation of the left ventricle endocardial borders. Contrast/Agitated Saline Contrast/Ag. Saline: Definity Amount: 3.00 ml Administered By: Tamar Braun [facility] Existing IV Access: Yes IV Access Condition: patent with no signs of infiltration Summary 1. Technically difficult echocardiogram because of obesity. 2. Definity contrast utilized to improve exam quality. 3. Overall normal appearing left ventricular systolic function with grade 1 diastolic noncompliance. 4. Sclerotic aortic valve which is mildly stenotic and trivial AI. 5. Right ventricular and right atrial enlargement is suggested/difficult exam:. Left Ventricle Left ventricular chamber dimension is normal. Left ventricular systolic function is normal, estimated at 50-55%. The left ventricular diastolic function is grade I diastolic dysfunction. Right Ventricle Right ventricular chamber dimension is mildly enlarged. Right ventricular systolic function is normal. Left Atria Left atrial chamber dimension is normal. Right Atria Right atrial chamber dimension is mildly enlarged. Aortic Valve The aortic valve is trileaflet. There is moderate aortic valve sclerosis. There is mild aortic valve stenosis with a peak velocity of 199.07 cm/s, mean gradient of 8 mmHg, and aortic valve area of 2.00 cm2. There is trace aortic valve regurgitation. Pulmonic Valve The pulmonic valve is not well visualized. Mitral Valve The mitral valve has normal leaflets. Tricuspid Valve The tricuspid valve leaflets are normal. Pericardium/Pleural The pericardium appears normal. Aorta The aortic root size at the sinus of Valsalva is mildly dilated. Left Ventricular Outflow Tract Name Value Normal LVOT 2D LVOT Diameter 2.08 cm LVOT Doppler LVOT Peak Gradient 5 mmHg LVOT Mean Gradient 3 mmHg LVOT VTI 21.58 cm LVOT VTI/AV VTI Ratio 0.59 LVOT Stroke Volume 73.58 ml LVOT CO 15.99 l/min LVOT CI 6.34 L/min/m2 Pulmonic Valve Name Value Normal PV Doppler PV Peak Gradient 4 mmHg Mitral
[2023-05-28] MEDS: HYDROmorphone HCL INJ (*CRX) 1 MG/ML SYR 0.5 MG IV PUSH (00:15)
[2023-05-28 03:32] VITALS: BP 101/48; PULSE 56; RESP 18; TEMP 37.1; O2SAT 97
[2023-05-28 05:55] LABS: Hematocrit 43.5 % (42.0-52.0); Mean Corpuscular HGB Conc 32.2 g/dl (32-36); Mean Corpuscular Volume 90.2 fl (80-100); Platelet Count Result 178 k/mm3 (150-375); Red Blood Count 4.82 M/mm3 (4.6-6.20); Red Cell Distribution Width 14.1 % (11.5-14.5); White Blood Count 6.3 K/mm3 (4.5-10.0)
[2023-05-28 06:20] LABS: Anion Gap 6 mmol/L (8-16); Blood Urea Nitrogen 13 mg/dL (9-20); Carbon Dioxide 25 mmol/L (22-30); Chloride 108 mmol/L (98-107); Estimated CRCL calculation 83 ml/min; Estimated Glomerular Filt Rate > 60; Glucose 96 mg/dL (65-110); Potassium 3.7 mmol/L (3.4-5.0); Sodium 139 mmol/L (137-145)
[2023-05-28 08:00] VITALS: BP 117/59; PULSE 73; RESP 15; TEMP 36.6; O2SAT 100
[2023-05-28 08:14] VITALS: PULSE 62
[2023-05-28] MEDS: FUROSEMIDE 40 MG TABLET PO (08:14)
[2023-05-28] MEDS: METOPROLOL SUCCINATE EXT REL 25 MG TABCR 75 MG PO (08:14)
[2023-05-28] MEDS: MULTIVITAMINS THERAPEUTIC TAB (*BKC) 1 TABLET PO (08:14)
[2023-05-28] MEDS: ROSUVASTATIN 10 MG TABLET 20 MG PO (08:14)
[2023-05-28] MEDS: SPIRONOLACTONE 25 MG TABLET PO (08:15)
[2023-05-28] MEDS: PANTOPRAZOLE 40 MG TABLET PO (08:15)
[2023-05-28] MEDS: MIRTAZAPINE 15 MG TABLET PO (08:15)
[2023-05-28] MEDS: APIXABAN 5 MG TABLET 10 MG PO (08:15)
[2023-05-28] MEDS: busPIRone HCL 5 MG TABLET PO (08:15)
[2023-05-28] MEDS: POLYSACCHARIDE IRON COMPLEX 150 MG CAPSULE PO (08:15)
[2023-05-28] MEDS: SACUBITRIL/VALSARTAN 49-51 MG TABLET 1 TABLET PO (08:15)
[2023-05-28] MEDS: POTASSIUM CHLORIDE 20 MEQ ER TABLET PO (08:15)
[2023-05-28] MEDS: RIVASTIGMINE TARTRATE 4.6 MG PATCH 1 PATCH TRANSDERM (08:15)
[2023-05-28] MEDS: TOLNAFTATE 1% POWDER 45 GM BTL 1 APPLIC TOPICAL (08:16)
[2023-05-28] MEDS: PERFLUTREN LIPID MICROSPHERES 1.5 ML VIAL DILUTED TO 10 ML TOTAL VOLUME IV PUSH (11:50)
--- NOTE | 2023-05-28 13:45 | PM.DS ---
DS: Admitting Diagnosis Discharge Date 05/28/23 Admitting Diagnosis Right flank pain DS: Discharge Diagnosis Discharge Diagnosis (1) Pulmonary embolism: Qualifiers: Pulmonary embolism type: single subsegmental (without acute cor pulmonale) Qualified Code(s): I26.93 - Single subsegmental pulmonary embolism without acute cor pulmonale Code(s): I26.99 - Other pulmonary embolism without acute cor pulmonale Status: Acute (2) Flank pain: Code(s): R10.9 - Unspecified abdominal pain Status: Acute (3) Thoracic aortic aneurysm without rupture: Qualifiers: Thoracic aorta location: ascending aorta Qualified Code(s): I71.21 - Aneurysm of the ascending aorta, without rupture Code(s): I71.2 - Thoracic aortic aneurysm, without rupture Status: Acute (4) Chronic kidney disease: Qualifiers: Chronic kidney disease stage: stage 3 (moderate) Chronic kidney disease stage 3 subtype: stage 3a (GFR 45-59) Qualified Code(s): N18.31 - Chronic kidney disease, stage 3a Code(s): N18.9 - Chronic kidney disease, unspecified Status: Acute (5) HTN (hypertension): Qualifiers: Hypertension type: essential hypertension Qualified Code(s): I10 - Essential (primary) hypertension Code(s): I10 - Essential (primary) hypertension Status: Acute (6) Prediabetes: Code(s): R73.03 - Prediabetes Status: Acute (7) Intertrigo: Code(s): L30.4 - Erythema intertrigo Status: Acute (8) Right rib fracture: Code(s): S22.31XA - Fracture of one rib, right side, initial encounter for closed fracture Status: Acute (9) Short-term memory loss: Code(s): R41.3 - Other amnesia Status: Acute DS: Summary Hospital Course Reason for hospitalization: 73yo male with dementia, CHF, DM, CKD and HTN here for right flank pain. Please see H&P for details. Hospital Course: Patient presents with right flank pain and shortness of breath.? The symptoms were present for about 10 days.? He did complete course of antibiotics for possible pneumonia.? Chest x-ray was clear on admission.? CTA of the chest showed a small filling defect in the right lower lobe as well as segmental right lower lobe pulmonary arteries consistent with embolism.? It is a small clot burden.? LE venous doppler negative for DVT. He was started on heparin drip.? He remained on room air.? Hemoglobin stable.? He has a history of falls.? He states he does not have a history of a VTE but past medical history does show he had a DVT in the past.? He is on Plavix but does not have documented CAD or CVA history and he is unsure why he is on this. Carotid ultrasound a few years ago showed less than 50% stenosis in the bilateral internal carotid arteries.? He was transitioned to Eliquis.?We held Plavix.?Rib xray showing acute right ninth rib fracture. He was having palpable right flank pain felt related to the rib fracture. Echo ordered and pending. CT redemonstrated fusiform ascending aortic aneurysm (5.7 cm) without gross dissection but exam not optimized to assess this. CT chest showing 5.3 in February 2023 and 5.4 in February 2022. Patient was educated on s/sx to alert staff with. Patient already has a follow-up with Dr Farris at [place]. Will place images on a disc. Patient with CKD.? Creatinine runs 1-1.3. Creatinine 1.0 on admission is decreased to 0.9 today. He worked with PT/OT. He overall did well and was able to be discharged on 05/28/23 Status at Discharge Cognitive/behavioral status at discharge: stable Time Spent with Patient Time attestation: Total time spent providing and/or coordinating discharge services: 35 minutes Time spent: Greater than 30 minutes Exam Narrative: AF 97.8 117/59 62 15 100% ra Gen - NARD Chest - CTA bilaterally, nml RR. CV - RRR S1/S2 Abd - Soft, NT/ND, Positive BS. Ext - No pedal edema. Psych - Nml mood and affect
--- NOTE | 2023-05-28 14:03 | IVDEFINITY ---
Prior to administration of IV Definity the patient was educated on the risks and benefits of the imaging enhancing agent including potential adverse side effects. The patient verbalized understanding. Allergies were verified. No exclusion criteria were identified and at least one of the following inclusion criteria were met: 1) physician request, 2) patient technically difficult to image (per the [place] [employer] guidelines of two or more segments not discernable within the apical view), or 3) questionable left ventricular function. ?
== END 2023-05-28 15:05 ==
LOC: ANHED 08:32 → ANHIMU 11:37 → ANH2MED 05-28 08:07 → ANHIMU 05-28 15:41
PROVIDERS: Student in an Organized Health Care Education/Training Program; Admitting Provider Internal Medicine; Emergency Provider Emergency Medicine; PCP Nurse Practitioner Family; Visit Provider Internal Medicine
DX: I26.93 Single subsegmental thrombotic pulmonary embolism without acute cor pulmonale (principal); R10.9 Unspecified abdominal pain; I71.21 Aneurysm of the ascending aorta, without rupture; K80.20 Calculus of gallbladder without cholecystitis without obstruction; I13.0 Hypertensive heart and chronic kidney disease with heart failure and stage 1 through stage 4 chronic kidney disease, or unspecified chronic kidney disease; I50.9 Heart failure, unspecified; N18.31 Chronic kidney disease, stage 3a; R73.03 Prediabetes; S22.31XA Fracture of one rib, right side, initial encounter for closed fracture; R41.3 Other amnesia; C81.10 Nodular sclerosis Hodgkin lymphoma, unspecified site; J44.9 Chronic obstructive pulmonary disease, unspecified; F03.90 Unspecified dementia, unspecified severity, without behavioral disturbance, psychotic disturbance, mood disturbance, and anxiety; Z20.822 Contact with and (suspected) exposure to COVID-19; L30.4 Erythema intertrigo; F32.A Depression, unspecified; R74.02 Elevation of levels of lactic acid dehydrogenase [LDH]; K21.9 Gastro-esophageal reflux disease without esophagitis; E78.00 Pure hypercholesterolemia, unspecified; G47.33 Obstructive sleep apnea (adult) (pediatric); Z86.16 Personal history of COVID-19; Z86.718 Personal history of other venous thrombosis and embolism; Z79.84 Long term (current) use of oral hypoglycemic drugs; Z79.02 Long term (current) use of antithrombotics/antiplatelets; Z79.899 Other long term (current) drug therapy; Z82.49 Family history of ischemic heart disease and other diseases of the circulatory system; Z83.49 Family history of other endocrine, nutritional and metabolic diseases
CPT/HCPCS: 36415; 71046; 71100; 71275; 74177; 80048; 80053; 81001; 83036; 83605; 83880; 84484; 85025; 85027; 85610; 85730; 87637; 93005; 93970; 94640; 96365; 96366; 96375; 96376; 97161; 97165; 97530; 97535; 99285; A9270; C8929; G0378; J1170; J1644; J2270; Q9957; Q9967

== ENCOUNTER 2023-12-01 13:14 | Outpatient (CLI) | payer MEDICARE, SELFPAY ==
[2023-12-01 13:26] LABS: Basophils Absolute Auto 0.1 K/mm3 (0.0-0.1); Basophils Percent Auto 0.7 % (0.2-1.2); Eosinophils Absolute Auto 0.5 K/mm3 (0-0.3); Eosinophils Percent Auto 6.3 % (0-4.4); Hematocrit 46.3 % (42.0-52.0); Hemoglobin 15.3 g/dL (14.0-18.0); Immature Granulocyte Absolute 0.04 K/mm3 (0.00-0.031); Immature Granulocyte Percent A 0.6 % (0-0.5); Lymphocytes Absolute Auto 1.24 K/mm3 (0.9-3.2); Lymphocytes Percent Auto 17.3 % (18.3-44.2); Mean Corpuscular Hemoglobin 29.7 pg (26-34); Mean Corpuscular Volume 89.7 fl (80-100); Mean Platelet Volume 9.2 fl (7.4-10.4); Monocytes Absolute Auto 0.7 K/mm3 (0.1-0.6); Monocytes Percent Auto 9.3 % (2.6-8.5); Neutrophils Absolute Auto 4.7 K/mm3 (1.3-6.7); Neutrophils Percent Auto 65.8 % (45.5-73.1); Platelet Count Result 175 k/mm3 (150-375); Red Blood Count 5.16 M/mm3 (4.6-6.20); Red Cell Distribution Width 13.6 % (11.5-14.5); White Blood Count 7.2 K/mm3 (4.5-10.0)
[2023-12-01 13:31] LABS: Blood Urea Nitrogen 13 mg/dL (8-26); Carbon Dioxide 26 mmol/L (22-30); Chloride 105 mmol/L (98-109); Estimated Glomerular Filt Rate 50; Glucose 111 mg/dL (70-105); Ionized Calcium (POC) 1.12 mmol/L (1.11-1.31); Potassium 4.4 mmol/L (3.5-4.9); Sodium 142 mmol/L (138-146)
[2023-12-01 18:55] LABS: Alanine Aminotransferase 21 U/L (6-50); Albumin Level 4.4 g/dL (3.5-5.1); Alkaline Phosphatase 65 U/L (38-126); Aspartate Amino Transferase 36 U/L (17-59); Bilirubin,Total 0.9 mg/dL (0.2-1.3); Blood Urea Nitrogen 13 mg/dL (9-20); Calcium 9.1 mg/dL (8.4-10.2); Carbon Dioxide 25 mmol/L (22-30); Estimated Glomerular Filt Rate 59; Glucose 106 mg/dL (65-110); Lactate Dehydrogenase 186 U/L (120-246)
[2023-12-01 18:59] LABS: Anion Gap 7 mmol/L (4-12); Chloride 108 mmol/L (98-107); Potassium 4.6 mmol/L (3.4-5.0); Sodium 140 mmol/L (137-145)
== END 2023-12-01 13:15 | disposition home or self-care (01) ==
LOC: ANHLAB 13:15
PROVIDERS: PCP Nurse Practitioner Family; Visit Provider Internal Medicine Hematology & Oncology
DX: C81.14 Nodular sclerosis Hodgkin lymphoma, lymph nodes of axilla and upper limb (principal)
CPT/HCPCS: 36415; 80047; 80053; 83615; 85025

== ENCOUNTER 2024-01-28 14:48 | Outpatient (CLI) | payer MEDICARE, SELFPAY ==
--- NOTE | ~2024-01-28 | XR_ITS ---
XR hip LT min 2V Ordering provider: Dalila De La Rosa APRN History: . Chronic anterior and lateral LT hip pain. no inj . Comparison: None. FINDINGS: BONES: No acute fracture or dislocation. HIP JOINT SPACES: severe osteoarthritic changes. SACROILIAC JOINT SPACES: Left sacroiliitis.. PUBIC SYMPHYSIS: Pubic symphysitis. SOFT TISSUES: Normal. IMPRESSION: No acute osseous abnormality pelvis and left hip. Reviewed, dictated and finalized at location A.
--- NOTE | ~2024-01-28 | XR_ITS ---
3 VIEWS LUMBAR SPINE Ordering provider: Dalila De La Rosa APRN History: . M54.50 - Low back pain, unspecified . Comparison: January 26, 2014 FINDINGS: VERTEBRAL BODIES: No visible fracture or subluxation. Degenerative changes of the spine. Levoscoliosi s. DISK SPACES: Narrowing of the disc L3-L4, L4-L5 and L5-S1. Multilevel facet joint disease. SOFT TISSUES: Aortic calcifications. Right hip arthroplasty. Severe left hip osteoarthritic changes. Bilateral sacroiliitis. IMPRESSION: No acute osseous abnormality lumbar spine. Reviewed, dictated and finalized at location A.
== END 2024-01-28 14:49 | disposition home or self-care (01) ==
LOC: ANHIMG 14:49
PROVIDERS: PCP Nurse Practitioner Family; Visit Provider Nurse Practitioner Family
DX: M25.552 Pain in left hip (principal); M54.50 Low back pain, unspecified; G89.29 Other chronic pain
CPT/HCPCS: 72100; 73502

== ENCOUNTER 2024-04-05 13:23 | Outpatient (CLI) | payer MEDICARE, SELFPAY ==
--- NOTE | ~2024-04-05 | XR_ITS ---
EXAMINATION: XR lg joint inject/asp w image DATE: 04/05/2024 14:34 INDICATION: Left hip arthritis presenting with left hip pain TECHNIQUE: A time-out was performed to verify the patient's name, date of , and procedure to b e performed. The procedure including the risks, benefits, and alternatives was discussed with the pat ient. Risks discussed included bleeding and infection. The patient understood the risks and agreed to proceed. The skin overlying the left hip joint was prepped and draped in usual sterile fashion. An esthetic was administered with 1% lidocaine subcutaneously. A 5 inch, 22 G needle was advanced under fluoroscopic guidance into the joint. Injection of 1 mL of Omnipaque 240 confirmed intra-articular position of the needle. Subsequently, injectate consisting of 3 mL of a 2:1 mixture of 0.5% bupivaca ine: 80 mg/mL Depo-Medrol for a total dosage of 80 mg Depo-Medrol was instilled. Washout of contrast was seen confirming intra-articular administration. The needle was removed and the entry site was chidi aned and dressed. There were no immediate complications. Fluoroscopy exposure time was 0.2 minutes. The total number of images was 2. FINDINGS: Real-time fluoroscopy demonstrates the needle in the left hip joint. Patient's pain prior t o procedure:10/28. Patient's pain following the procedure: 07/31. IMPRESSION: 1. Successful left hip joint injection of local anesthetic and steroid with decrease in the patient's presenting pain. Reviewed, dictated and finalized at location A. IMPRESSION: 1. Successful left hip joint injection of local anesthetic and steroid with dec rease in the patient's presenting pain.
== END 2024-04-05 13:24 | disposition home or self-care (01) ==
PROVIDERS: PCP Nurse Practitioner Family; Visit Provider Orthopaedic Surgery
DX: M16.12 Unilateral primary osteoarthritis, left hip (principal); Z01.818 Encounter for other preprocedural examination
CPT/HCPCS: 20610; 77002; J1010; Q9966

== ENCOUNTER 2024-05-24 13:55 | Outpatient (CLI) | payer MEDICARE, SELFPAY ==
--- NOTE | ~2024-05-24 | XR_ITS ---
EXAMINATION: XR chest 2V 05/24/2024 14:10 INDICATION: Cough PROCEDURE: 2 view chest COMPARISON: Comparison to multiple prior studies sequentially, with oldest reviewed study dated 11/2022. FINDINGS: The lungs are clear. There is calcified granuloma in the left upper lobe. The cardiomediast inal silhouette is within normal limits. There are no pleural effusions. There is no pneumothorax s uspected. IMPRESSION: 1: NO ACUTE CARDIOPULMONARY DISEASE. Reviewed, dictated and finalized at location B. 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
== END 2024-05-24 13:56 | disposition home or self-care (01) ==
LOC: ANHIMG 13:59
PROVIDERS: PCP Nurse Practitioner Family; Visit Provider Nurse Practitioner Family
DX: R05.9 Cough, unspecified (principal)
CPT/HCPCS: 71046

== ENCOUNTER 2024-08-22 13:37 | Outpatient (CLI) | payer MEDICARE, SELFPAY | END 2024-08-22 13:38 | disposition home or self-care (01) | PROVIDERS: PCP Nurse Practitioner Family; Visit Provider Orthopaedic Surgery | DX: M16.12 Unilateral primary osteoarthritis, left hip (principal) | CPT/HCPCS: 20610; 77002; J1010 ==

== ENCOUNTER 2025-03-13 16:02 | Inpatient (IN) | payer MEDICARE, SELFPAY ==
[2025-03-13] VITALS (9 sets, daily range): BP systolic 87–128; BP diastolic 56–69; PULSE 84–95; RESP 16–30; TEMP 36.5–36.8; O2SAT 95–100; BMI 37.3
--- NOTE | ~2025-03-13 | CT_ITS ---
EXAMINATION: CT abdomen pelvis w con DATE: 03/17/2025 20:33 INDICATION: Hodgkin's lymphoma. TECHNIQUE: Computed tomography (CT) of the abdomen and pelvis was performed with 100 mL Omnipaque 350 intravenous contrast. Automated exposure control and iterative reconstruction technique were employed. The dose-length product was 1465.50 mGy-cm. COMPARISON: CT abdomen and pelvis 05/26/2023, 05/04/2019 FINDINGS: The visualized portions of lung bases demonstrate mild atelectasis. No pleural effusion. The heart size is normal. There are coronary artery calcifications. There is a trace pericardial effusion. The liver is normal. Calcifications in the spleen are consistent with old granulomatous disease. There is contrast in the gallbladder, which is normal in size. The pancreas and adrenal glands are normal. There are cysts in the kidneys measuring up to 5.1 cm on the left. There is a 3.0 cm hyperdense mass in right kidney lower pole. There is a right inguinal hernia containing sigmoid colon and the appendix. There is diverticulosis of the colon without evidence of diverticulitis. There are no dilated loops of bowel. There are no pathologically enlarged lymph nodes. There is no free intraperitoneal fluid. There is a total right hip arthroplasty. There are bridging endplate osteophytes at multiple levels in the thoracic spine, consistent with diffuse idiopathic skeletal hyperostosis (DISH). There is moderate lumbar spondylosis. IMPRESSION: 1. No evidence of lymphoma. 2. 3.0 cm right kidney mass, most likely a hemorrhagic cyst. Neoplasm is not excluded. Abdomen CT without and with contrast is recommended. 3. Right inguinal hernia containing nonobstructed sigmoid colon and the appendix. Reviewed, dictated and finalized at location E. IMPRESSION: 1. No evidence of lymphoma. 2. 3.0 cm right kidney mass, most likely a hemorrhagic cyst. Neoplasm is not ex cluded. Abdomen CT without and with contrast is recommended. 3. Right inguinal hernia containing nonobstructed sigmoid colon and the appendi x.
--- NOTE | ~2025-03-13 | CT_ITS ---
EXAMINATION: CTA chest PE protocol DATE: 03/13/2025 18:57 CDT INDICATION: DVT. History of PE. TECHNIQUE: Computed tomographic angiography (CTA) of the chest was performed with 100 mL Omnipaque-350 intravenous contrast. The dose-length product was 1054.39 mGy-cm. Maximum intensity projection 3D-reconstructions of the aorta and other arteries were constructed by the technologist on a separate workstation. COMPARISON: None. FINDINGS: Stable fusiform ascending thoracic aortic aneurysm measuring 5.8 cm. No evidence for dissection. Heart size normal. No significant pleural or pericardial effusion. No thoracic lymphadenopathy. There are bilateral renal cysts. There are gallstones. Study is technically adequate without evidence for pulmonary embolism. Mildly elevated left diaphragm. There is bilateral lower lobe atelectasis. No focal pneumonia or pneumothorax. No endobronchial lesions. There is moderate multilevel thoracic spondylosis with accentuated kyphosis of the upper thoracic spine. IMPRESSION: 1. Stable fusiform ascending thoracic aortic aneurysm measuring 5.8 cm. 2: No evidence for pulmonary embolism. Reviewed, dictated and finalized at location O.
--- NOTE | ~2025-03-13 | US_ITS ---
EXAMINATION:US venous doppler LE RT INDICATION:Swelling and leg pain TECHNIQUE: Multiple grayscale, color flow and Doppler images of the right lower extremity deep venous systems were obtained and reviewed. COMPARISON:Ultrasound dated 05/27/2023 FINDINGS: There is deep venous thrombosis of the right popliteal, posterior tibial, peroneal and gastrocnemius veins. The greater saphenous vein is patent. Common femoral vein is patent. IMPRESSION: 1: Extensive deep venous thrombosis of the right lower extremity. Reviewed, dictated and finalized at location O.
--- NOTE | ~2025-03-13 | US_ITS ---
EXAMINATION: US venous doppler LE RT DATE: 03/19/2025 15:09 INDICATION: Deep venous thrombosis TECHNIQUE: Grayscale ultrasound images without and with compression and Doppler ultrasound images of the right lower extremity veins were obtained. COMPARISON: None. FINDINGS: The visualized portions of right common femoral vein, profunda (deep) femoral vein, femoral vein, above the knee popliteal vein, posterior tibial veins and greater saphenous vein outflow are patent. The below the knee popliteal vein and peroneal veins were unable to be clearly visualized. There are several mixed anechoic and very hypoechoic likely complex fluid collections at the right calf. This includes a 5.5 x 2.8 x 2.0 cm fusiform collection at the medial upper calf. This appears to potentially communicate with a deeper 14.9 x 10.4 x 9.4 cm predominantly hypoechoic lesion at the medial mid calf which is without internal vascular flow on color Doppler. Appearance is suspicious for an intramuscular hematoma with extra muscular extension. Per discussion with the branch specialist this region was firm and exquisitely tender to palpation during scanning. IMPRESSION: 1. No evident deep venous thrombosis in the visualized veins of the right lower limb. The below-knee popliteal vein and peroneal veins were unable be clearly visualized. 2. 3 very hypoechoic lesions at the proximal to mid right calf suspicious for complex fluid collections measuring 5.5 x 2.8 x 2.0 cm at the superficial medial upper calf,, slightly deeper collection also at the medial mid upper calf measuring 7.4 x 3.1 x 4.1 cm and the largest collection also the deep mid calf measuring 14.9 x 10.4 x 9.4 cm. These are concerning for hematomas although differential would include abscess in the appropriate clinical setting or artifactual appearance resulting from severe soft tissue edema. Given the size of the deepest lesion, the absence of evident vascular flow in the region of the deeper lesion in the associated firmness to the soft tissues and severe pain raise concern for compartment syndrome. Correlate clinically for signs/symptoms of compartment syndrome and could consider further evaluation contrast enhanced CT or MRI as clinically indicated. Findings were discussed with Anum Wilson, the nurse caring for the patient, at 3:58 PM. Reviewed, dictated and finalized at location A. IMPRESSION: 1. No evident deep venous thrombosis in the visualized veins of the right lowe r limb. The below-knee popliteal vein and peroneal veins were unable be clearly visualized. 2. 3 very hypoechoic lesions at the proximal to mid right calf suspicious for c omplex fluid collections measuring 5.5 x 2.8 x 2.0 cm at the superficial medial upper calf,, slightly deeper collection also at the medial mid upper calf bogdan uring 7.4 x 3.1 x 4.1 cm and the largest collection also the deep mid calf bogdan uring 14.9 x 10.4 x 9.4 cm. These are concerning for hematomas although differe ntial would include abscess in the appropriate clinical setting or artifactual appearance resulting from severe soft tissue edema. Given the size of the deepe st lesion, the absence of evident vascular flow in the region of the deeper les ion in the associated firmness to the soft tissues and severe pain raise concer n for compartment syndrome. Correlate clinically for signs/symptoms of compartm ent syndrome and could consider further evaluation contrast enhanced CT or MRI as clinically indicated. Findings were discussed with Anum Wilson, the nurse lisa blount for the patient, at 3:58 PM.
--- NOTE | ~2025-03-13 | CT_ITS ---
EXAMINATION: CT LE RT w con DATE: 03/19/2025 17:42 INDICATION: Possible compartment syndrome TECHNIQUE: High resolution computed tomography (CT) of the right lower leg the distal thigh through the foot was performed with 100 mL Omnipaque-350 intravenous contrast. Additional sagittal and coronal reconstructions were performed. Automated exposure control and iterative reconstruction technique we re employed. The dose-length product was 1317.40 mGy-cm. COMPARISON: Ultrasound dated 03/19/2025 FINDINGS: There is a large hematoma in the posterior compartment of the right lower leg which measures 19.7 cm craniocaudally and 13.3 x 5.9 cm maximal transaxial dimensions. No evident active contrast extravasation. Mild subcutaneous edema throughout the right lower leg. There is scattered nonhemodynamically si gnificant atherosclerotic plaque along the arteries of the bilateral lower legs. There is runoff below the ankles of both the left and right anterior tibial and posterior tibial arteries. Runoff is seen in the bilateral peroneal arteries to the mid calves at which point the arteries become too small to definitively assess for contrast opacification. There is insufficient contrast opacification in the veins of either lower leg to assess for patency. There is asymmetric increased size of the distal right greater saphenous vein relative to the left. There are small bilateral knee joint effusions as well as moderate-sized bilateral Roman's cysts. Bone alignment is normal. No fractures. There is mild polyarticular osteoarthritis at the bilateral knees and at multiple joints in the bilateral feet. Prominent bone island at the right talus. Bilateral Achilles and plantar calcaneal spurs with additional enthesophytes at the left and right patellae. IMPRESSION: 1. Large hematoma in the posterior compartment of the right lower leg which measures 19.7 x 13.3 x 5.9 cm. No evident active contrast extravasation. 2. Small bilateral knee joint effusions and moderate-sized bilateral Roman's cyst. Reviewed, dictated and finalized at location A. IMPRESSION: 1. Large hematoma in the posterior compartment of the right lower leg which alan sures 19.7 x 13.3 x 5.9 cm. No evident active contrast extravasation. 2. Small bilateral knee joint effusions and moderate-sized bilateral Roman's cy st.
--- OUTSIDE RECORDS SUMMARY | 2025-03-13 16:05 | XMS_ITS | Clinical Summary ---
Author Organization [facility] Address [address] [place] [address] Care Team Providers Care Oyster Cultivator Name Role Phone Thien Lund MD Primary Care Provider [phone] Allergies Active Allergy Reactions Criticality Noted Date Comments Apricot Swelling Medium 06/18/2016 Apricot Flavor Swelling Medium 06/18/2016 Apricot Kernel Oil Swelling Medium 06/18/2016 Medications aspirin (MAGNUS) 325 mg tablet Take 325 mg by mouth daily. Active vortioxetine (TRINTELLIX,BRINT ELLIX) 20 mg tablet Take 5 mg by mouth daily. Active lansoprazole (PREVACID) 30 mg Capsule, Delayed Release(E.C.) Take 30 mg by mouth daily. Active busPIRone (BUSPAR) 15 mg Tablet Take 15 mg by mouth 2 times daily . 8 Active Iron Polysacch Utoscgt-X55-YX (POLY-IRON 150 FORTE) 150-25-1 mg-mcg-mg Capsule Take 1 Capsule by mouth 2 times daily . 8 Active metoprolol succinate (TOPROL XL) 25 mg Extended Release 24 hour tablet 9 Active ketorolac tromethamine (ACULAR) 0.5 % solution 9 Active mirtazapine (REMERON) 15 mg tablet Take 15 mg by mouth. 0 Active rivastigmine (EXELON) 4.6 mg/24 hr patch Apply 4.6 mg to skin as directed. 0 Active hydrOXYzine HCL (ATARAX) 25 mg tablet TAKE 1 TABLET BY MOUTH THREE TIMES A DAY NEEDED FOR ITCHING 0 Active clopidogreL (PLAVIX) 75 mg Tablet Take 75 mg by mouth daily. 1 Active spironolactone (ALDACTONE) 25 mg tablet Take 25 mg by mouth daily. 2 Active Entresto 24-26 mg Tablet 2 Active potassium chloride (KLOR-CON) 20 mEq Extended Release tablet Take 20 mEq by mouth daily. 2 Active furosemide (LASIX) 40 mg tablet Take 40 mg by mouth daily. 2 Active polysaccharide iron complex (FERREX 150,IFEREX 150) 150 mg iron capsule Take 150 mg by mouth 2 times daily. Active benzonatate (TESSALON) 100 mg capsule Take 100 mg by mouth 3 times daily as needed. Active Jardiance 10 mg tablet Take 1 Tablet by mouth daily. 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 Encounters Date Type Department Care Team Description 03/06/2025 External Device Data STL ABSTRACTION Provider, Abstract 02/20/2025 External Device Data STL ABSTRACTION Provider, Abstract 02/20/2025 External Device Data STL ABSTRACTION Provider, Abstract 02/07/2025 External Device Data STL ABSTRACTION Provider, Abstract 01/24/2025 External Device Data STL ABSTRACTION Provider, Abstract 01/23/2025 External Device Data STL ABSTRACTION Provider, Abstract 01/03/2025 External Device Data STL ABSTRACTION Provider, Abstract 01/03/2025 External Device Data STL ABSTRACTION Provider, Abstract 01/02/2025 External Device Data STL ABSTRACTION Provider, Abstract 12/12/2024 External Device Data STL ABSTRACTION Provider, Abstract from Last 3 Months Family History Medical History Relation Name Comments Diabetes Father Heart Disease Father Hypertension Father Hypertension Mother Hypertension Sister 1 No Known Problems Sister 2 Relation Name Status Comments Father Mother Sister 1 Alive Sister 2 Alive Social History Tobacco Use Types Packs/Day Years Used Date Smoking Tobacco: Never Tobacco Cessation:Counseling Given: Not Answered Alcohol Use Standard Drinks/Week Comments No 0 (1 standard drink = 0.6 oz pur e alcohol) Sex and Gender Information Value Date Recorded Sex Assigned at Not on file Legal Sex Male 9:27 AM PIECER UP Gender Identity Not on file Sexual Orientation Not on file Last Filed Vital Signs Vital Sign Reading Time Taken Comments Blood Pressure 85/47 12/05/2024 1:08 PM CDT Pulse 78 12/05/2024 1:04 PM CDT Temperature 36.2 C (97.1 F) 12/05/2024 1:04 PM CDT Respiratory Rate 15 12/05/2024 1:04 PM CDT Oxygen Saturation 96% 12/05/2024 1:04 PM CDT Inhaled Oxygen Concentration - - Weight 121.7 kg (268 lb 3.2 oz) 12/05/2024 1:04 PM CDT Height 177.8 cm (5' 10) 03/03/2022 3:46 PM CDT Body Mass Index 38.48 03/03/2022 3:46 PM CDT Plan of Treatment Upcoming Encounters Date Type Department Care Team (Late st Contact Info) Description 12/11/2025 1:00 PM CDT Office Visit [facility] Oncology and Hematology [facility] [address] [facility] [address] [place] [address] Vasiliy Solano MD [address] [place] [address] Health Maintenance Due Date Last Done Comments DTAP/TDAP/TD VACCINES (1 - Tdap) 1968 PNEUMOCOCCAL VACCINE 50+ YEARS (1 of 2 - PCV) 05/02/19 68 ZOSTER VACCINE (1 of 2) 1968 COLORECTAL SCREENING 1994 Colorectal Cancer Screening 1994 FIT-DNA Q 3 years 1994 FIT/FOBT Q 1 year 1994 Flex Sig/CT Colonography Q 5 years 1994 RSV VACCINE (60+ or ) (1 - 1-dose 75+ series) 2024 INFLUENZA VACCINE (#1) 2025 03/21/2019 Insurance AETNA O [facility] AETNA O MCR Advance Directives For more information, please contact: [phone] Documents on File Type Date Recorded Patient Vp Hr Diversity Expl anation Advance Directive POA 10/31/2019 9:28 AM A tresa [facility] Care Teams Oyster Cultivator Relationship Specialty Start Date End Date Thien Lund MD [address] [place] [address] PCP - General Family Practice 03/03/23
--- OUTSIDE RECORDS SUMMARY | 2025-03-13 16:05 | XMS_ITS | Clinical Summary ---
Author Organization [facility] Address [address] [place] [address] Care Team Providers Care Banquet Director Name Role Phone Nathaniel Suarez Debora DO Primary Care Provider [phone] Source Comments [facility],non-owned Affiliates and Associated Physician Practices is amultiple site organization consisting of ambulatory clinics and hospital sitesin [place], [place], [place] and [place]. This disclosure is being madepursuant to the Care Everywhere program and may not contain all information available regarding this patient. Last updated 18.[facility] Allergies Active Allergy Reactions Criticality Noted Date Comments Apricot Flavor Swelling Low 06/18/2016 Prunus Swelling Low 06/18/2016 Medications * This document contains information received from the source organization and may not represent a complete record from that organization. * Be aware that medications may not be up to date on this document. Alwaysverify current medications with the patient. lansoprazole (PREVACID) 30 MG capsule Take 1 (one) capsule by mouth once daily Active rosuvastatin (CRESTOR) 20 MG tablet Take 1 (one) tablet by mouth once daily Active clopidogrel (PLAVIX) 75 MG tablet Take 1 (one) tablet by mouth once daily 1 Active aspirin EC (ECOTRIN) 81 MG tablet Take 1 (one) tablet by mouth once daily Active potassium chloride ER (KLOR-CON M) 20 MEQ tablet Take 1 (one) tablet by mouth once daily 2 Active empagliflozin (JARDIANCE) 10 MG tablet Take 10 mg by mouth once daily 2 Active furosemide (LASIX) 40 MG tablet Take 1 (one) tablet by mouth once daily 2 Active spironolactone (ALDACTONE) 25 MG tablet Take 25 mg by mouth once daily 2 Active metoprolol succinate XL 24hr (TOPROL XL) 50 MG tablet Take 1.5 (one and one-half) tablets by mouth once daily 2 Active Multiple Vitamin (MULTIVITAMIN ADULT PO) Take by mouth once daily 2 Active sacubitril-delia sartan (ENTRESTO) 49-51 MG tablet Take 1 tablet by mouth 2 times daily Active Eliquis 5 MG tablet 4 Active vitamin D3 (Cholecalcifer ol) 25 MCG (1000 UNITS) tablet 4 Active IFerex 150 150 MG CAPS 4 Active busPIRone (Buspar) 5 MG tabletIndicati ons:Anxiety Disorder,Major Depressive Disorder Take 1 (one) tablet by mouth 2 times daily Reasons: Anxiety Disorder, Major Depressive Disorder 180 tablet 1 5 08/20/19 26 Active mirtazapine (Remeron) 15 MG tabletIndicati ons:Major Depressive Disorder Take 1 (one) tablet by mouth at bedtime Reasons: Major Depressive Disorder 90 tablet 1 5 08/20/19 26 Active rivastigmine (Exelon) 4.6 MG/24HR patchIndicatio ns:Alzheimer's Disease Apply 1 (one) patch to skin once daily Reasons: Alzheimer's Disease 90 patch 1 5 08/20/19 26 Active vortioxetine (Trintellix) 20 MG tabletIndicati ons:Major Depressive Disorder Take 1 (one) tablet by mouth once daily Reasons: Major Depressive Disorder 90 tablet 1 5 08/20/19 26 Active busPIRone (Buspar) 5 MG tabletIndicati ons:Anxiety Disorder,Major Depressive Disorder Take 1 (one) tablet by mouth 2 times daily Reasons: Anxiety Disorder, Major Depressive Disorder 180 tablet 1 5 02/21/20 Discontinu ed(Reorder ) mirtazapine (Remeron) 15 MG tabletIndicati ons:Major Depressive Disorder Take 1 (one) tablet by mouth at bedtime Reasons: Major Depressive Disorder 90 tablet 1 5 02/21/20 Discontinu ed(Reorder ) rivastigmine (Exelon) 4.6 MG/24HR patchIndicatio ns:Alzheimer's Disease Apply 1 (one) patch to skin once daily Reasons: Alzheimer's Disease 90 patch 1 5 02/21/20 Discontinu ed(Reorder ) vortioxetine (Trintellix) 20 MG tabletIndicati ons:Major Depressive Disorder Take 1 (one) tablet by mouth once daily Reasons: Major Depressive Disorder 90 tablet 1 5 02/21/20 Discontinu ed(Reorder ) Active Problems Problem Noted Date Diagnosed Date Congestive heart failure 02/23/2025 Chronic kidney disease 02/23/2025 Chronic lower back pain 02/23/2025 NSVT (nonsustained ventricular tachycardia) 10/2024 PAC (premature atrial contraction) 02/23/2025 Unilateral primary osteoarthritis, left hip 04/21 Aneurysm 06/09/2023 Thoracic aortic aneurysm 04/29/2023 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 10/06/2022 Morbid (severe) obesity due to excess calories 0 01/07/2022 PTSD (post-traumatic stress disorder) 11/11/2021 Cardiomyopathy 10/22/2021 Overview (11/11/2021): Added automatically from request for surgery [id number] Added automatically from request for surgery [id number] SOB (shortness of breath) 10/22/2021 Overview (11/11/2021): Added automatically from request for surgery [id number] Added automatically from request for surgery [id number] Other specified anemias 08/10/2019 Special screening for malignant neoplasms, colon 08/10/2019 Minor neurocognitive disorder 02/09/2019 Alcohol use disorder, severe, in sustained remis gayathri 02/09/2019 Overview (01/06/2024): Sober since 10/21/1986 Generalized anxiety disorder 12/06/2017 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 Osteoarthritis 03/02/2017 Hyperlipidemia 06/19/2016 Obstructive sleep apnea 06/19/2016 Gastro-esophageal reflux disease without esophag itis 06/19/2016 Chronic lymphadenitis 09/08/2010 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 09/08/2010 Benign essential hypertension 09/08/2010 Resolved Problems Problem Noted Date Diagnosed Date Resolved Date Bronchitis 02/23/2025 02/23/2025 Elham infection 02/23/2025 02/23/2025 Elevated troponin 02/23/2025 02/23/2025 History of alcohol use 02/23/202502/23 Pain, unspecified 01/05/2024 01/05/2024 Other chest pain 01/05/2024 01/05/2024 Chest pain, unspecified 01/05/202412/19 Anxiety disorder 06/18/2016 12/06/2017 Recurrent major depressive d isorder, in partial remission 06/18/2016 11/11/2021 Encounters * This document contains information received from the source organization and may not represent a complete record from that organization. Date Type Department Care Team Description 02/20/2025 Travel from Last 3 Months Immunizations Immunization Administration Dates Next Due INFLUENZA VACCINE 03/21/2018 INFLUENZA VACCINE, QUADR. (A FLURIA, FLUZONE QUADRIVALENT; 6MO+) (IIV4) 03/21/2019 Social History Tobacco Use Types Packs/Day Years Used Date Smoking Tobacco: Former Smokeless Tobacco: Never Tobacco Cessation:Counseling Given: Not Answered Alcohol Use Standard Drinks/Week Comments No 0 (1 standard drink = 0.6 oz pur e alcohol) former PHQ-2 Answer Date Recorded Patient Health Questionnaire-2 Score 1 02/20/2025 Sex and Gender Information Value Date Recorded Sex Assigned at Male 06/23/2023 1:02 PM LEGAL ASSISTANT Legal Sex Male 5:16 PM LEGAL ASSISTANT Gender Identity Male 06/23/2023 1:02 PM LEGAL ASSISTANT Sexual Orientation Straight 06/23/2023 1: 02 PM LEGAL ASSISTANT Last Filed Vital Signs Vital Sign Reading Time Taken Comments Blood Pressure 92/64 02/20/2025 3:00 PM CDT Pulse 93 02/20/2025 3:00 PM CDT Temperature 36.1 C (97 F) 09/01/2023 3:29 PM CDT Respiratory Rate 10 06/24/2022 3:04 PM LEGAL ASSISTANT Oxygen Saturation 92% 09/12/2024 1:05 PM CDT Inhaled Oxygen Concentration - - Weight 122.6 kg (270 lb 3.2 oz) 02/20/2025 3:00 PM CDT Height 180.3 cm (5' 11) 02/20/2025 3:00 PM CDT Body Mass Index 37.69 02/20/2025 3:00 PM CDT Plan of Treatment Health Maintenance Due Date Last Done Comments COLOGUARD (AGES 45-75) - COLON CA SCREENING 1949 COLON MONITORING 1949 COLONOSCOPY - COLON CA SCREENING 1949 CT COLONOGRAPHY - COLON CA SCREENING 1949 Colorectal Cancer Screening 1949 FIT - COLON CA SCREENING 1949 FLEX SIG - COLON CA SCREENING 1949 HEPATITIS C SCREENING 04/28/1967 DTAP/TDAP/TD VACCINES (1 - Tdap) 1968 PNEUMOCOCCAL VACCINE 50+ (1 of 2 - PCV) 1968 ZOSTER VACCINE (1 of 2) 1968 Respiratory Syncytial Virus (RSV) Vaccine Pt: or over 60 yrs (1 - 1-dose 75+ series) 2024 MEDICARE AWV CALENDAR YEAR 2024 COVID-19 VACCINE ( - season) 2025 04/03/2021, 09/11/2020, 08/20/2020 INFLUENZA VACCINE (#1) 2025 , 03/28/2019, 03/21/2019, Additional history exists DEPRESSION SCREENING Completed 09/12/2024, 09/01/2023, 06/24/2022, Additional history exists HEPATITIS B VACCINE Aged Out No longe r eligible based on patient's age to complete this topic HIB VACCINE Aged Out No longer eligi ble based on patient's age to complete this topic HPV VACCINE Aged Out No longer eligi ble based on patient's age to complete this topic MENINGOCOCCAL (Group B) VACCINE SHARED DECISION-MAKING Aged Out No longer eligible based on patient's age to complete this topic MENINGOCOCCAL GROUPS A/C/Y/W VACCINE Aged Out No longer eligible based on patient's age to complete this [place] [id number] COVENTRY MEDICARE [facility] [place] [address] [facility] [facility] AETNA MEDICARE ADV Advance Directives Documents on File Type Date Recorded Patient Director Data Management Expl anation Adv Directive/Living Will/POA 08/20/2021 1:34 PM POA HEALTHCARE Adv Directive/Living Will/POA 08/19/2021 2:02 PM POA FOR HLTHCARE Adv Directive/Living Will/POA 08/24/2019 1:19 PM POA Care Teams Banquet Director Relationship Specialty Start Date End Date Nathaniel Suarez DO [address] [place] [address] PCP - General Internal Medicine 03/21/19
--- OUTSIDE RECORDS SUMMARY | 2025-03-13 16:05 | XMS_ITS | Encounter Summary ---
Author Organization [facility] Care Team Providers Care Rip Machine Operator Name Role Phone Darvin Antunez MD Primary Care Provider [phone] Mike Yu MD Primary Care Provider [phone] Daily, Mango Meadows MD Unavailable [phone] Leo Childs MD Unavailable Nathaniel Suarez DO Primary Care Provider [phone] Thien Lund MD Primary Care Provider [phone] Encounter Details Date Type Department Care Team (Latest Contact Info) Description 04/12/2018 Orders Only [facility] CLINCONV ProviderShereen MD [address] [place] [id number] Social History Tobacco Use Types Packs/Day Years Used Date Smoking Tobacco: Never Assessed Sex and Gender Information Value Date Recorded Sex Assigned at Not on file Legal Sex Male 9:52 PM SILK OPENER Gender Identity Not on file Sexual Orientation Not on file documented as of this encounter Plan of Treatment Not on file documented as of this encounter Procedures Procedure Name Priority Date/Time Associated Diagnosis Comments SCAN - LABS 04/12/2018 12:00 AM CDT documented in this encounter Results * SCAN - LABS (04/12/2018 12:00 AM CDT) Narrative 04/12/2018 12:00 AM CDT Ordered by an unspecified provider. us Historical Provider Final Res ult documented in this encounter Visit Diagnoses Not on filedocumented in this encounter Care Teams Rip Machine Operator Relationship Specialty Start Date End Date Darvin Antunez MD [address] [place] [address] PCP - General Internal Medicine 06/21/17 02/12/20 Mike Yu MD [address] [facility] [address] [place] [address] PCP - General Internal Medicine 02/13/20 03/10/22 Nathaniel Suarez DO [address] [facility] [address] [facility] [address] [place] [address] PCP - General Internal Medicine 03/11/22 07/13/23 Thien Lund MD [address] [facility] [address] [facility] [address] [place] [address] PCP - General Family Practice 07/14/23 Dianne, Mango Meadows MD [address] [place] [address] Referring Physician Cardiothoracic Surgery 02/13/2010/20/21 Leo Childs MD [address] [facility] [address] [facility] [address] [place] [address] [facility] 10/21/21 documented as of this encounter
--- OUTSIDE RECORDS SUMMARY | 2025-03-13 16:05 | XMS_ITS | Clinical Summary ---
Author Organization [facility] [address] Address [address] [place] [address] Care Team Providers Care Coal Passer Name Role Phone Leo Childs MD Unavailable Thien Lund MD Primary Care Provider [phone] Allergies Active Allergy Reactions Criticality Noted Date Comments Apricot Swelling Medium 06/18/2016 Apricot Flavor Swelling Medium 06/18/2016 Apricot Kernel Oil Swelling Medium 06/18/2016 Medications lansoprazole (PREVACID) 30 mg capsule Take 1 capsule (30 mg total) by mouth daily 0 Active mirtazapine (REMERON) 15 mg tablet Take 1 tablet (15 mg total) by mouth nightly 0 Active Trintellix 20 mg tablet Take 1 tablet (20 mg total) by mouth daily 0 Active aspirin 81 mg enteric coated tablet Take 1 tablet (81 mg total) by mouth daily Active iron aspgly,ps/C/B12 /FA/Ca/suc (FERREX 150 FORTE PLUS ORAL) Take 150 mg by mouth 2 (two) times a day with meals Active busPIRone (BUSPAR) 5 mg tablet Take 1 tablet (5 mg total) by mouth every 12 (twelve) hours 2 Active rivastigmine (EXELON) 4.6 mg/[address] 4.6 mg on the skin daily 2 Active benzonatate (TESSALON) 100 mg capsuleIndicati ons:Cough Take 1 capsule (100 mg total) by mouth every 8 (eight) hours as needed for cough Active MULTIVITAMIN ORAL Take 1 tablet/capsule by mouth daily Active nystatin powder APPLY TOPICALLY TWICE A DAY FOR RASH TO LOWER ABDOMEN 2 Active spironolactone (ALDACTONE) 25 mg tablet TAKE 1 TABLET BY MOUTH ONCE DAILY 90 tablet 1 3 Active furosemide (LASIX) 40 mg tablet TAKE 1 TABLET BY MOUTH ONCE DAILY 90 tablet 1 3 Active Jardiance 10 mg tablet TAKE 1 TABLET BY MOUTH ONCE DAILY 90 tablet 1 3 Active Entresto 49-51 mg tablet TAKE 1 TABLET BY MOUTH TWICE DAILY 28 tablet 3 Active clotrimazole-be tamethasone (LOTRISONE) cream 3 Active ketoconazole (NIZORAL) 2 % cream 3 Active metoprolol XL (TOPROL-XL) 50 mg extended release tablet TAKE 1 & 1/2 TABS (75MG) BY MOUTH ONCE DAILY 21 tablet 3 Active potassium chloride ER 20 mEq CR tablet TAKE 1 TABLET BY MOUTH ONCE DAILY 14 tablet 3 Active iFerex 150 150 mg iron capsule 3 Active acetaminophen (TYLENOL) 500 mg tablet Take 1 tablet (500 mg total) by mouth every 6 (six) hours as needed for pain Active cholecalciferol (VITAMIN D-3) 1,000 unit Take 1 tablet/capsule (1,000 Units total) by mouth daily Active rosuvastatin (CRESTOR) 40 mg tablet Take 1 tablet (40 mg total) by mouth daily 30 tablet 11 4 Active Eliquis 5 mg tablet 5 Active Active Problems Problem Noted Date Diagnosed Date Aneurysm 06/09/2023 Thoracic aortic aneurysm 04/29/2023 Morbid (severe) obesity due to excess calories 0 01/07/2022 Cardiomyopathy 10/22/2021 Overview (10/22/2021): Added automatically from request for surgery [id number] SOB (shortness of breath) 10/22/2021 Overview (10/22/2021): Added automatically from request for surgery [id number] Generalized anxiety disorder 12/06/2017 Osteoarthritis 03/02/2017 Gastro-esophageal reflux disease without esophag itis 06/19/2016 Hyperlipidemia 06/19/2016 Obstructive sleep apnea 06/19/2016 Recurrent major depressive disorder, in partial remission 06/18/2016 Benign essential hypertension 09/08/2010 Lymphadenopathy 07/14/1999 Encounters Date Type Department Care Team Description 03/07/2025 10:30 AM CDT Office Visit [facility] Cardiology [address] [place] [address] Leo Childs MD Coronary artery disease involving [place] coronary artery of [place] heart without angina pectoris (Primary Dx); Chronic diastolic congestive heart failure (HCC); Hypertension, essential; History of pulmonary embolism; Aneurysm of ascending aorta without rupture; Cognitive impairment from Last 3 Months Surgical History Surgery Date Site/Laterality Comments HIP SURGERY PORTACATH PLACEMENT for chemo JOINT REPLACEMENT Medical History Medical History Date Comments Lymphoma (HCC) OA (osteoarthritis) Aneurysm of aortic arch HTN (hypertension) Depression Memory deficit CHF (congestive heart failure) (HCC) Hodgkin's lymphoma (HCC) SOB (shortness of breath) Age-related cognitive decline Pure hypercholesterolemia JONAH (obstructive sleep apnea) GERD (gastroesophageal reflux disease) Other specified arthritis, unspecified site Anxiety Family History Medical History Relation Name Comments Alcohol abuse Father Og Hypertension Father Og Hypertension Mother Juli Relation Name Status Comments Father Og Mother Juli Social History Tobacco Use Types Packs/Day Years Used Date Smoking Tobacco: Never Smokeless Tobacco: Never Tobacco Cessation:Counseling Given: Not Answered Alcohol Use Standard Drinks/Week Comments Not Currently 0 (1 standard drink = 0.6 oz pur e alcohol) recovering alcoholic Sex and Gender Information Value Date Recorded Sex Assigned at Not on file Legal Sex Male 9:52 PM PROGRAM DEVELOPER Gender Identity Not on file Sexual Orientation Not on file Obstetrics History Last Filed Vital Signs Vital Sign Reading Time Taken Comments Blood Pressure 120/72 03/07/2025 10:59 AM CDT Pulse 51 03/07/2025 10:59 AM CDT Temperature 36.3 C (97.3 F) 06/07/2024 10:46 AM PROGRAM DEVELOPER Respiratory Rate 18 06/07/2024 10:4 6 AM PROGRAM DEVELOPER Oxygen Saturation 99% 03/07/2025 10: 59 AM CDT Inhaled Oxygen Concentration - - Weight 123.3 kg (271 lb 12.8 oz) 2024 10:59 AM CDT Height 177.8 cm (5' 10) 03/07/2025 10: 59 AM CDT Body Mass Index 39 03/07/2025 10:59 AM CDT Plan of Treatment Health Maintenance Due Date Last Done Comments Colon Cancer Screening-Colonoscopy 1950 Depression Screening 1950 Hepatitis C Screening 1950 DTaP/Tdap/Td Vaccine (1 - Tdap) 1960 Hepatitis B Screening 1967 Pneumococcal vaccine 65+ (1 of 2 - PCV) 1968 Zoster Vaccine (1 of 2) 1968 Well Visit 65+ 2014 Fall Risk Assessment 05/05/2023 05/05/2022, 11/07/19 22 Covid-19 Vaccine ( - 2024-2 6 season) 2025 04/03/2021, 09/11/2020, 08/20/2020 Influenza Vaccine (#1) 2025 , 03/27/2020, 03/28/2019, Additional history exists Procedures Procedure Name Priority Date/Time Associated Diagnosis Comments POCT LIPID PANEL Routine 03/07/2025 11:4 3 AM CDT Coronary artery disease involving [place] coronary artery of [place] heart without angina pectoris from Last 3 Months Results * (ABNORMAL) POCT lipid panel (03/07/2025 11:43 AM CDT) Cholesterol, POC 105 <200 MG/DL HDL, POC 36(A) >=40 mg/dL Triglycerides, POC 72 <=149 mg/dL LDL Cholesterol POC 54 <=129 mg/dL Chol/HDL Ratio, POC 1.5 NONE Non-HDL Cholesterol, POC 69 NONE mg/dL Cholesterol Total, POC 105 30 - 199 mg/dL Capillary blood 03/07/2025 1 1:43 AM CDT Leo Childs MD POINT OF CARE TEST ORDERABLES Fi nal Result from Last 3 Months Insurance T MEDICARE T MEDICARE Advance Directives For more information, please contact: [phone] Documents on File Type Date Recorded Patient Database Administration Manager Expl anation ADVANCE DIRECTIVE 07/25/2021 [facility] Care Teams Coal Passer Relationship Specialty Start Date End Date Thien Lund MD [address] [place] [address] PCP - General Family Practice 07/14/23 Leo Childs MD [address] [place], [place] [id number] [facility] 10/21/21
--- NOTE | 2025-03-13 17:29 | ECG_ITS ---
Test Date: 2025-03-13 17:58:14 Measurements Intervals [place] Rate: 87 P: 24 MS: 244 QRS: -41 QRSD: 105 T: -16 QT: 389 QTc: 469 Interpretive Statements SINUS RHYTHM WITH FIRST DEGREE AV BLOCK LOW QRS VOLTAGE IN PRECORDIAL LEADS [QRS DEFLECTION < 1.0 mV IN CHEST LEADS] INCOMPLETE RIGHT BUNDLE BRANCH BLOCK [90+ ms QRS DURATION, TERMINAL R IN V1/V2, 40+ ms S IN I/aVL/V4/V5/V6] INFERIOR MYOCARDIAL INFARCTION , OF INDETERMINATE AGE [40+ ms Q WAVE AND/OR ST/T ABNORMALITY IN II/aVF] ANTEROLATERAL MYOCARDIAL INFARCTION , OF INDETERMINATE AGE [40+ ms Q WAVE IN I/aVL/V3-V6] ABNORMAL ECG No previous ECG available for comparison Electronically Signed On 03-14-2025 07:24:44 CDT by Wade Mccarty M.D.
--- NOTE | 2025-03-13 17:30 | ED.EXTPRO ---
HPI - Extremity Problem General Chief complaint: Recheck/Abnormal Lab/Rx <Ludmila Garcia PA-C - Last Filed: 03/13/25 21:36> Stated complaint: leg swelling <Ludmila Garcia PA-C - Last Filed: 03/13/25 21:36> Time Seen by Provider: 03/13/25 17:03 <Ludmila Garcia PA-C - Last Filed: 03/13/25 21:36> Source: patient <DAVID Mirza Last Filed: 03/13/25 21:36> Mode of arrival: ambulatory <Ludmila Garcia PA-C - Last Filed: 03/13/25 21:36> Limitations: other (Poor historian) <Ludmila Garcia PA-C - Last Filed: 03/13/25 21:36> History of Present Illness HPI Narrative: This is a 74-year-old male that presents to the emergency department for right leg swelling. Reports he noticed this a couple of days ago. His daughter reports he appears a little more short of breath than usual. The patient denies any overt chest pain or shortness of breath. Patient takes Eliquis. History of PE. <Ludmila Garcia PA-C - Last Filed: 03/13/25 21:36> Related Data Home medications: Home Medications ?Medication ?Instructions ?Recorded ?Confirmed ?Last Taken ?Type multivitamin 1 tablet PO DAILY 04/11/19 03/13/25 03/13/25 History vortioxetine 20 mg tablet 20 mg PO DAILY 03/12/21 03/13/25 03/13/25 History (Trintellix) metoprolol succinate 25 mg 75 mg PO DAILY 08/29/21 03/13/25 03/13/25 History tablet,extended release 24 hr (Toprol XL) rivastigmine 4.6 mg/24 hour 4.6 mg transdermal DAILY 08/29/21 03/13/25 03/13/25 History transdermal patch sacubitril 49 mg-valsartan 51 mg 1 tablet PO BID 03/18/22 03/13/25 03/13/25 History tablet (Entresto) aspirin 81 mg tablet,delayed 81 mg PO DAILY 10/25/23 03/13/25 03/13/25 History release (Adult Aspirin Regimen) rosuvastatin 40 mg tablet 40 mg PO DAILY 10/25/23 03/13/25 03/13/25 History <Ludmila Garcia PA-C - Last Filed: 03/13/25 21:36> Allergies/Adverse reactions: Allergies Allergy/AdvReac Type Severity Reaction Status Date / Time apricot Allergy Severe throat Verified 03/13/25 16:30 SWELLING <Ludmila Garcia PA-C - Last Filed: 03/13/25 21:36> Review of Systems Review of Systems: All systems reviewed & are unremarkable except as noted in HPI and below <Ludmila Garcia PA-C - Last Filed: 03/13/25 21:36> [facility] Past Medical History Medical History: Medical History (Updated 03/13/25 @ 21:12 by Letitia Schmidt MD) Hip osteoarthritis Chronic lower back pain Left hip pain Right rib fracture Flank pain Intertrigo COVID-19 Ascending aortic aneurysm Encounter for routine adult health examination without abnormal findings Essential hypertension Gastroesophageal reflux disease without esophagitis TIA (transient ischemic attack) Depression Cognitive decline JONAH (obstructive sleep apnea) Short-term memory loss Arthritis GERD (gastroesophageal reflux disease) DVT (deep venous thrombosis) Hypercholesterolemia HTN (hypertension) <Ludmila Garcia PA-C - Last Filed: 03/13/25 21:36> Family History Family History: Family History Father Hypertension Family history of coronary artery disease Family history of heart disease in male family member before age 55 Mother Hypertension Family history of congestive heart failure Unknown Heart disease Diabetes mellitus Depression Arthritis Hypertension High cholesterol Other Family history of elevated blood lipids <Ludmila Garcia PA-C - Last Filed: 03/13/25 21:36> Social History Social History: Social History Social History: Currently lives at [place], [place]). Elects his daughter, Aislinn Beaver, as his decision maker. Code Status: Full Code. Smoking status: Former smoker Second hand tobacco smoke exposure: No Alcohol intake: former Substance use: never Substance use type: does not use Do You Feel Safe in your Home?: Yes Lack of Transportation: No Lack of Food: Never True Current Housing: I Have Housing Concerned About Future Housing: No Difficulty Paying Gas/Electric Bills: No Difficulty Paying for Meds: No Currently Unemployed: No Education: Master's Degree or Higher Difficulty w/ Childcare or Family Care: No Living arrangements: assisted living Additional living arrangements comments: [facility] [phone] Occupation/Education: retired Gender identity (if verbalized by the patient): Male Spiritual care concerns: No <Ludmila Garcia PA-C - Last Filed: 03/13/25 21:36> Exam Narrative: GENERAL: Well-appearing, well-nourished, and in no acute distress. HEAD: Normocephalic, atraumatic. EYES: EOMI. CHEST: Clear to auscultation. No respiratory distress. No wheezes rales or rhonchi HEART: Regular rate and rhythm. No murmur heard. Normal peripheral pulses. EXTREMITIES: Normal range of motion. Pitting edema to the right leg below the knee and into the foot. Normal DP pulse. Normal sensation SKIN: Warm, dry, no rash. NEURO: No focal deficits. Alert and oriented x3. PSYCH: Normal mood and affect <Ludmila Garcia PA-C - Last Filed: 03/13/25 21:36> Course Course Emergency Course: patient and family updated on workup and need for admission <Ludmila Garcia PA-C - Last Filed: 03/13/25 21:36> SHINGLE SAWYER/PA Physician Supervision This visit was performed by both a physician and an APC. I performed all aspects of the MDM as documented. <Shiv Holguin MD - Last Filed: 03/14/25 06:48> Consultations Consultation #1: Spoke with hospitalist about patient and workup who accepts admission. Would like recommendation on blood thinner from Hematology <Ludmila Garcia PA-C - Last Filed: 03/13/25 21:36> Date: 03/13/25 <Ludmila Garcia PA-C - Last Filed: 03/13/25 21:36> Consultation #2: Spoke with Dr. Solano about patient and workup. Recommends Lovenox 1mg/kg q12 hours. Likely for the first month of therapy <Ludmila Garcia PA-C - Last Filed: 03/13/25 21:36> Date: 03/13/25 <Ludmila Garcia PA-C - Last Filed: 03/13/25 21:36> Vital Signs Vital signs: Vital Signs Temperature 36.8 C 03/13/25 16:07 Pulse Rate 94 03/13/25 16:07 Respiratory Rate 16 03/13/25 16:07 Blood Pressure 87/62 L 03/13/25 16:07 Pulse Oximetry 99 03/13/25 16:07 Temperature 36.6 C 03/14/25 06:00 Pulse Rate 80 03/14/25 06:00 Respiratory Rate 14 03/14/25 06:00 Blood Pressure 100/55 L 03/14/25 06:00 Pulse Oximetry 96 03/14/25 06:00 Oxygen Delivery Room Air 03/13/25 23:04 <Ludmila Garcia PA-C - Last Filed: 03/13/25 21:36> Vital Signs Temperature 36.8 C 03/13/25 16:07 Pulse Rate 94 03/13/25 16:07 Respiratory Rate 16 03/13/25 16:07 Blood Pressure 87/62 L 03/13/25 16:07 Pulse Oximetry 99 03/13/25 16:07 Temperature 36.6 C 03/14/25 06:00 Pulse Rate 80 03/14/25 06:00 Respiratory Rate 14 03/14/25 06:00 Blood Pressure 100/55 L 03/14/25 06:00 Pulse Oximetry 96 03/14/25 06:00 Oxygen Delivery Room Air 03/13/25 23:04 <Shiv Holguin MD - Last Filed: 03/14/25 06:48> MDM - Extremity (Nontraumatic) MDM Narrative Medical decision making narrative: Patient presents the emergency department for lower extremity edema. He is afebrile and nontoxic appearing. His vitals are stable. Cbc without leukocytosis. Metabolic panel with kidney function that is maybe mildly elevated from baseline. BNP is not concerningly elevated. Right lower extremity venous Doppler study shows extensive DVT in the right lower extremity of the right popliteal, posterior tibial, peroneal, gastrocnemius veins. CTA without evidence of PE. Shows stable thoracic aortic aneurysm. Spoke with hospitalist about patient and workup who accepts admission. Would like recommendation on blood thinner from Hematology. Spoke with Dr. Solano about patient and workup. Recommends Lovenox 1mg/kg q12 hours. Likely for the first month of therapy <Ludmila Garcia PA-C - Last Filed: 03/13/25 21:36> Differential Diagnosis Differential diagnosis: Likely cellulitis, lower extremity edema, deep vein thrombosis of lower extremity and other (PE) <Ludmila Garcia PA-C - Last Filed: 03/13/25 21:36> Lab Data Attestation: I reviewed the patient's lab results. <Ludmila Garcia PA-C - Last Filed: 03/13/25 21:36> Result diagrams: 03/13/25 17:48 03/13/25 17:48 <Ludmila Garcia PA-C - Last Filed: 03/13/25 21:36> Labs: Lab Results 03/13/25 03/13/25 Range/Units 17:48 17:48 WBC 9.9 (4.5-10.0) K/mm3 RBC 4.39 L (4.6-6.20) M/mm3 Hgb 12.0 L (14.0-18.0) g/dL Hct 37.1 L (42.0-52.0) % MCV 84.5 (80-100) fl MCH 27.3 (26-34) pg MCHC 32.3 (32-36) g/dl RDW 13.6 (11.5-14.5) % Plt Count 317 (150-375) k/mm3 MPV 9.0 (7.4-10.4) fl Immature Gran % (Auto) 0.4 (0-0.5) % Neut % (Auto) 74.0 H (45.5-73.1) % Lymph % (Auto) 13.3 L (18.3-44.2) % [place] % (Auto) 10.4 H (2.6-8.5) % Eos % (Auto) 1.6 (0-4.4) % Baso % (Auto) 0.3 (0.2-1.2) % Lymph # (Auto) 1.31 (0.9-3.2) K/mm3 [place] # (Auto) 1.0 H (0.1-0.6) K/mm3 Eos # (Auto) 0.2 (0-0.3) K/mm3 Baso # (Auto) 0.0 (0.0-0.1) K/mm3 Abs Immat Gran (auto) 0.04 H (0.00-0.031) K/mm3 Absolute Neuts (auto) 7.3 H (1.3-6.7) K/mm3 Absolute Nucleated RBC 0.000 (0.0-0.012) K/mm3 Nucleated RBC % 0.0 (0.0-0.2) % PT 16.4 H (11.1-14.7) Seconds INR 1.3 APTT 33.8 (22.3-36.8) Seconds Sodium 138 (137-145) mmol/L Potassium 4.6 (3.4-5.0) mmol/L Chloride 107 (98-107) mmol/L Carbon Dioxide 22 (22-30) mmol/L Anion Gap 9 (4-12) mmol/L BUN 22 H (9-20) mg/dL Creatinine 1.61 H (0.7-1.3) mg/dL Estim Creat Clear Calc 48 ml/min Estimated GFR 42 L (59 - ) Glucose 105 (65-110) mg/dL Calcium 8.6 (8.4-10.2) mg/dL Total Bilirubin 1.0 (0.2-1.3) mg/dL AST 29 (17-59) U/L ALT 17 (6-50) U/L Alkaline Phosphatase 89 (38-126) U/L NT-Pro-B Natriuret Pep 486 H Cancelled (19.9-100) pg/mL Total Protein 6.8 (6.3-8.2) g/dL Albumin 3.7 (3.5-5.1) g/dL <Ludmila Garcia PA-C - Last Filed: 03/13/25 21:36> Lab Results 03/13/25 03/13/25 Range/Units 17:48 17:48 WBC 9.9 (4.5-10.0) K/mm3 RBC 4.39 L (4.6-6.20) M/mm3 Hgb 12.0 L (14.0-18.0) g/dL Hct 37.1 L (42.0-52.0) % MCV 84.5 (80-100) fl MCH 27.3 (26-34) pg MCHC 32.3 (32-36) g/dl RDW 13.6 (11.5-14.5) % Plt Count 317 (150-375) k/mm3 MPV 9.0 (7.4-10.4) fl Immature Gran % (Auto) 0.4 (0-0.5) % Neut % (Auto) 74.0 H (45.5-73.1) % Lymph % (Auto) 13.3 L (18.3-44.2) % [place] % (Auto) 10.4 H (2.6-8.5) % Eos % (Auto) 1.6 (0-4.4) % Baso % (Auto) 0.3 (0.2-1.2) % Lymph # (Auto) 1.31 (0.9-3.2) K/mm3 [place] # (Auto) 1.0 H (0.1-0.6) K/mm3 Eos # (Auto) 0.2 (0-0.3) K/mm3 Baso # (Auto) 0.0 (0.0-0.1) K/mm3 Abs Immat Gran (auto) 0.04 H (0.00-0.031) K/mm3 Absolute Neuts (auto) 7.3 H (1.3-6.7) K/mm3 Absolute Nucleated RBC 0.000 (0.0-0.012) K/mm3 Nucleated RBC % 0.0 (0.0-0.2) % PT 16.4 H (11.1-14.7) Seconds INR 1.3 APTT 33.8 (22.3-36.8) Seconds Sodium 138 (137-145) mmol/L Potassium 4.6 (3.4-5.0) mmol/L Chloride 107 (98-107) mmol/L Carbon Dioxide 22 (22-30) mmol/L Anion Gap 9 (4-12) mmol/L BUN 22 H (9-20) mg/dL Creatinine 1.61 H (0.7-1.3) mg/dL Estim Creat Clear Calc 48 ml/min Estimated GFR 42 L (59 - ) Glucose 105 (65-110) mg/dL Calcium 8.6 (8.4-10.2) mg/dL Total Bilirubin 1.0 (0.2-1.3) mg/dL AST 29 (17-59) U/L ALT 17 (6-50) U/L Alkaline Phosphatase 89 (38-126) U/L NT-Pro-B Natriuret Pep 486 H Cancelled (19.9-100) pg/mL Total Protein 6.8 (6.3-8.2) g/dL Albumin 3.7 (3.5-5.1) g/dL <Shiv Holguin MD - Last Filed: 03/14/25 06:48> Imaging Data Radiologist's impression: ITS Impressions Venous Doppler Study 03/13/25 17:53 IMPRESSION: 1: Extensive deep venous thrombosis of the right lower extremity. Chest CTA 03/13/25 18:57 IMPRESSION: 1. Stable fusiform ascending thoracic aortic aneurysm measuring 5.8 cm. 2: No evidence for pulmonary embolism. <Ludmila Garcia PA-C - Last Filed: 03/13/25 21:36> ECG Data EKG #1: ECG completion date: 03/13/25 <Ludmila Garcia PA-C - Last Filed: 03/13/25 21:36> EKG Interpretation: normal rate, sinus rhythm, no ST changes and normal QT <Ludmila Garcia PA-C - Last Filed: 03/13/25 21:36> Critical Care Time Critical Care Time Critical Care Time: No <Ludmila Garcia PA-C - Last Filed: 03/13/25 21:36> Discharge Plan Discharge Clinical Impression: Deep vein thrombosis (DVT) of right lower extremity Qualifiers: Affected thrombotic vein of extremity: popliteal Chronicity: acute Qualified Code(s): I82.431 - Acute embolism and thrombosis of right popliteal vein <Ludmila Garcia PA-C - Last Filed: 03/13/25 21:36> Patient Disposition: Still a Patient <DAVID Mirza Last Filed: 03/13/25 21:36> Condition: Stable <Ludmila Garcia PA-C - Last Filed: 03/13/25 21:36>
[2025-03-13 18:00] LABS: Hematocrit 37.1 % (42.0-52.0); Hemoglobin 12.0 g/dL (14.0-18.0); Immature Granulocyte Percent A 0.4 % (0-0.5); Lymphocytes Absolute Auto 1.31 K/mm3 (0.9-3.2); Mean Corpuscular HGB Conc 32.3 g/dl (32-36); Mean Corpuscular Hemoglobin 27.3 pg (26-34); Mean Corpuscular Volume 84.5 fl (80-100); Nucleated Red Blood Cells Absolute Auto 0.000 K/mm3 (0.0-0.012); Nucleated Red Blood Cells Perc 0.0 % (0.0-0.2); Platelet Count Result 317 k/mm3 (150-375); Red Blood Count 4.39 M/mm3 (4.6-6.20); White Blood Count 9.9 K/mm3 (4.5-10.0)
--- NOTE | 2025-03-13 18:03 | PC.NURSE ---
EKG was performed late becua US leg was being performed when the tech came into the room to do so.
[2025-03-13 18:09] LABS: INR 1.3; Prothrombin Time 16.4 Seconds (11.1-14.7)
[2025-03-13 18:10] LABS: Partial Thromboplastin Time 33.8 Seconds (22.3-36.8)
--- OUTSIDE RECORDS SUMMARY | 2025-03-13 18:12 | XMS_ITS | Clinical Summary ---
Author Organization [facility] [address] Address [address] [place] [address] Care Team Providers Care Cutting Table Operator Name Role Phone Leo Childs MD Unavailable Thien Lund MD Primary Care Provider [phone] Allergies Active Allergy Reactions Criticality Noted Date [...] (10/22/2021): Added automatically from request for surgery [id number] SOB (shortness of breath) 10/22/2021 Overview (10/22/2021): Added automatically from request for surgery [id number] Generalized anxiety disorder 12/06/2017 Osteoarthritis 03/02/2017 Gastro-esophageal reflux disease without esophag itis 06/19/2016 Hyperlipidemia 06/19/2016 Obstructive sleep apnea 06/19/2016 Recurrent major depressive disorder, in partial remission 06/18/2016 Benign essential hypertension 09/08/2010 Lymphadenopathy 07/14/1999 Encounters Date Type Department Care Team Description 03/07/2025 10:30 AM CDT Office Visit [facility] Cardiology [address] [place] [address] Leo Childs MD Coronary artery disease involving [place] coronary artery of [place] heart without angina pectoris (Primary Dx); Chronic [...] on file Legal Sex Male 9:52 PM HEALTH SERVICES COORDINATOR Gender Identity Not on file Sexual Orientation Not on file Obstetrics History Last Filed Vital Signs Vital Sign Reading Time Taken Comments Blood Pressure 120/72 03/07/2025 10:59 AM CDT Pulse 51 03/07/2025 10:59 AM CDT Temperature 36.3 C (97.3 F) 06/07/2024 10:46 AM HEALTH SERVICES COORDINATOR Respiratory Rate 18 06/07/2024 10:4 6 AM HEALTH SERVICES COORDINATOR Oxygen Saturation 99% 03/07/2025 10: 59 AM [...] 3 AM CDT Coronary artery disease involving [place] coronary artery of [place] heart without angina pectoris from Last 3 [...] Advance Directives For more information, please contact: [phone] Documents on File Type Date Recorded Patient Water Chaser Expl anation ADVANCE DIRECTIVE 07/25/2021 [facility] Care Teams Cutting Table Operator Relationship Specialty Start Date End Date Thien Lund MD [address] [place] [address] PCP - General Family Practice 07/14/23 Leo Childs MD [address] [place], [place] [id number] Limo Driver Cardiology 10/21/21
--- OUTSIDE RECORDS SUMMARY | 2025-03-13 18:12 | XMS_ITS | Encounter Summary ---
Author Organization [facility] Facility Care Team Providers Care Country Sales Manager Name Role Phone Darvin Antunez MD Primary Care Provider [phone] Mike Yu MD Primary Care Provider [phone] Daily, Mango Meadows MD Unavailable [phone] Leo Childs MD Unavailable Nathaniel Suarez DO Primary Care Provider [phone] Thien Lund MD Primary Care Provider [phone] Encounter Details Date Type Department Care Team (Latest Contact Info) Description 04/12/2018 Orders Only [facility]INCON[facility] ProviderShereen MD [address] [place] [id number] Social History Tobacco Use Types Packs/Day Years Used Date Smoking Tobacco: Never Assessed Sex and Gender Information Value Date Recorded Sex Assigned at Not on file Legal Sex Male 9:52 PM INSURANCE 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 Gender Identity Not on file Sexual Orientation [...] on filedocumented in this encounter Care Teams Country Sales Manager Relationship Specialty Start Date End Date Darvin Antunez MD [address] [place] [address] PCP - General Internal Medicine 06/21/17 02/12/20 Mike Yu MD [address] [facility] [address] [place] [address] PCP - General Internal Medicine 02/13/20 03/10/22 Nathaniel Suarez DO [address] [facility] [address] [facility] [address] [place] [address] PCP - General Internal Medicine 03/11/22 07/13/23 Thien Lund MD [address] [facility] [address] [facility] [address] [place] [address] PCP - General Family Practice 07/14/23 Dianne, Mango Meadows MD [address] [place] [address] Referring Physician Cardiothoracic Surgery 02/13/2010/20/21 Leo Childs MD [address] [facility] [address] [facility] [address] [place] [address] Chief Pharmacist Cardiology 10/21/21 documented as of this encounter
[2025-03-13 18:13] LABS: Alanine Aminotransferase 17 U/L (6-50); Albumin Level 3.7 g/dL (3.5-5.1); Alkaline Phosphatase 89 U/L (38-126); Anion Gap 9 mmol/L (4-12); Aspartate Amino Transferase 29 U/L (17-59); Bilirubin,Total 1.0 mg/dL (0.2-1.3); Blood Urea Nitrogen 22 mg/dL (9-20); Calcium 8.6 mg/dL (8.4-10.2); Carbon Dioxide 22 mmol/L (22-30); Chloride 107 mmol/L (98-107); Estimated CRCL calculation 48 ml/min; Estimated Glomerular Filt Rate 42; Glucose 105 mg/dL (65-110); Potassium 4.6 mmol/L (3.4-5.0); Sodium 138 mmol/L (137-145); Total Protein 6.8 g/dL (6.3-8.2)
--- OUTSIDE RECORDS SUMMARY | 2025-03-13 18:13 | XMS_ITS | Clinical Summary ---
Author Organization [facility] Address [address] [facility] [place] [address] Care Team Providers Care Fundraising Officer Name Role Phone Thien Lund MD Primary Care Provider [phone] Allergies Active Allergy Reactions Criticality Noted Date [...] times daily . 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 Gender Identity Not on file Sexual Orientation [...] Description 12/11/2025 1:00 PM CDT Office Visit [facility] Oncology and Hematology [facility] [address] [facility] [address] [place] [address] Vasiliy Solano MD [address] [facility] [address] [place] [address] Health Maintenance Due Date Last [...] VACCINE (#1) 2025 03/21/2019 Insurance AET[employer] O [facility] AETNA O MCR Advance Directives For more information, please contact: [phone] Documents on File Type Date Recorded Patient Cdl A Driver Expl anation Advance Directive POA 10/31/2019 9:28 AM A tresa [facility] Care Teams Fundraising Officer Relationship Specialty Start Date End Date Thien Lund MD [address] [place] [address] PCP - General Family Practice 03/03/23
--- OUTSIDE RECORDS SUMMARY | 2025-03-13 18:13 | XMS_ITS | Clinical Summary ---
Author Organization [facility] Address [address] [facility] [place] [address] Care Team Providers Care Dosimetrist Name Role Phone Nathaniel Suarez Debora DO Primary Care Provider [phone] Source Comments [facility],non-owned Affiliates and Associated Physician Practices is amultiple site organization consisting of ambulatory clinics and hospital sitesin [place], [place], [place] and [place]. This disclosure is being madepursuant to the Care Everywhere program and may not contain all information available regarding this patient. 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 10/06/2022 Morbid (severe) obesity due to excess calories 0 01/07/2022 PTSD (post-traumatic stress disorder) 11/11/2021 Cardiomyopathy 10/22/2021 Overview (11/11/2021): Added automatically from request for surgery [id number] Added automatically from request for surgery [id number] SOB (shortness of breath) 10/22/2021 Overview (11/11/2021): Added automatically from request for surgery [id number] Added automatically from request for surgery [id number] Other specified anemias 08/10/2019 Special screening for [...] Sex Assigned at Male 06/23/2023 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 Legal Sex Male 5:16 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 Gender Identity Male 06/23/2023 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 Sexual Orientation Straight 06/23/2023 1: 02 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 Last Filed Vital Signs Vital Sign Reading Time Taken Comments Blood Pressure 92/64 02/20/2025 3:00 PM CDT Pulse 93 02/20/2025 3:00 PM CDT Temperature 36.1 C (97 F) 09/01/2023 3:29 PM CDT Respiratory Rate 10 06/24/2022 3:04 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 Oxygen Saturation 92% 09/12/2024 1:05 PM CDT [...] to complete [place] [id number] [employer] MED[employer] [facility] [place] [address] [facility] AETNA MEDICARE ADV Advance Directives Documents on File Type Date Recorded Patient Elderly Companion Expl anation Adv Directive/Living Will/POA 08/20/2021 1:34 PM POA HEALTHCARE Adv Directive/Living Will/POA 08/19/2021 2:02 PM POA FOR HLTHCARE Adv Directive/Living Will/POA 08/24/2019 1:19 PM POA Care Teams Dosimetrist Relationship Specialty Start Date End Date Nathaniel Suarez DO [address] [place] [address] PCP - General Internal Medicine 03/21/19
[2025-03-13 18:22] LABS: NT Pro B Type Natriuretic Pept 486 pg/mL (19.9-100)
--- NOTE | 2025-03-13 19:31 | PC.NURSE ---
CARLINE Garcia at bedside talking with pt. and pt. daughter. pt in no acute distress. Pt. given a blanket. no requests at this time.
--- NOTE | 2025-03-13 20:24 | PC.NURSE ---
Pt. daughter left bedside alerted this RN that the pt. gets intermittently confused. Pt. A&Ox3 at this time. Bed alarm placed under pt. and pt. educated to not get up without assistance. Pt. verbalized understanding. Pt. able to stand beside bed with assist x2 and use the urinal. Pt. repositioned in bed.
--- NOTE | 2025-03-13 20:30 | PC.NURSE ---
Hospitalist at bedside assessing pt.
[2025-03-13] MEDS: ENOXAPARIN 60 MG/0.6 ML SYRINGE 25 MG SUB-Q (20:41)
[2025-03-13] MEDS: ENOXAPARIN 100 MG/ML SYRINGE SUB-Q (20:41)
--- NOTE | 2025-03-13 20:56 | PM.IMHP ---
H&P: HPI History of Present Illness Date/Time: 03/13/25 20:56 Chief Complaint: Right leg pain and swelling Narrative: 74-year-old male with multiple medical comorbidities including class 2 obesity, history of PE, memory loss presents with 2 days of right lower extremity swelling and pain. He is on Eliquis. Reports being compliant. He is from an assisted living facility. Initial workup reveals serum creatinine 1.61, right lower extremity venous Doppler with extensive deep venous thrombosis of the right popliteal, posterior tibial, peroneal and gastrocnemius veins. Chest CTA does not reveal pulmonary embolism, and a stable fusiform ascending thoracic aortic aneurysm measuring 5.8 cm. Hematology consulted from ER, recommended therapeutic Lovenox. Patient aware of risk of considering the aortic aneurysm size. They do not want transfer and did not want surgical intervention. Review of Systems Review of Systems: All systems reviewed & are unremarkable except as noted in HPI and below (Subjective) [facility] Past Medical History Medical History (Updated 03/13/25 @ 21:12 by Letitia Schmidt MD) Hip osteoarthritis Chronic lower back pain Left hip pain Right rib fracture Flank pain Intertrigo COVID-19 Ascending aortic aneurysm Encounter for routine adult health examination without abnormal findings Essential hypertension Gastroesophageal reflux disease without esophagitis TIA (transient ischemic attack) Depression Cognitive decline JONAH (obstructive sleep apnea) Short-term memory loss Arthritis GERD (gastroesophageal reflux disease) DVT (deep venous thrombosis) Hypercholesterolemia HTN (hypertension) Family History Family History Father Hypertension Family history of coronary artery disease Family history of heart disease in male family member before age 55 Mother Hypertension Family history of congestive heart failure Unknown Heart disease Diabetes mellitus Depression Arthritis Hypertension High cholesterol Other Family history of elevated blood lipids Social History Social History Social History: Currently lives at an Assisted Living [facility] ([place], [place]). Elects his daughter, Aislinn Beaver, as his decision maker. Code Status: Full Code. Smoking status: Never smoker Second hand tobacco smoke exposure: No Alcohol intake: former Substance use: never Substance use type: does not use Do You Feel Safe in your Home?: Yes Lack of Transportation: No Lack of Food: Never True Current Housing: I Have Housing Concerned About Future Housing: No Difficulty Paying Gas/Electric Bills: No Difficulty Paying for Meds: No Currently Unemployed: No Education: Bachelor's Degree Difficulty w/ Childcare or Family Care: No Living arrangements: assisted living Additional living arrangements comments: [facility] [phone] Occupation/Education: retired Gender identity (if verbalized by the patient): Male Spiritual care concerns: No Meds Home Medications and Allergies Home Medications ?Medication ?Instructions ?Recorded ?Confirmed ?Type multivitamin 1 tablet PO DAILY 04/11/19 03/13/25 History mirtazapine 15 mg tablet 15 mg PO DAILY #1 tablet 11/22/20 03/13/25 Rx vortioxetine 20 mg tablet 20 mg PO DAILY 03/12/21 03/13/25 History (Trintellix) buspirone 5 mg tablet 5 mg PO Q12HR 30 days #60 tabs 08/03/21 03/13/25 Rx empagliflozin 10 mg tablet 10 mg PO DAILY #30 tabs 08/03/21 03/13/25 Rx (Jardiance) furosemide 40 mg tablet 40 mg PO DAILY #30 tabs 08/03/21 03/13/25 Rx potassium chloride 20 mEq 20 meq PO DAILY #30 tabs 08/03/21 03/13/25 Rx tablet,extended release (K-Tab) spironolactone 25 mg tablet 25 mg PO QAM #30 tabs 08/03/21 03/13/25 Rx polysaccharide iron complex 150 mg See Rx Instructions .Route 08/22/21 03/13/25 Rx iron capsule (Ferrex) .COMPLEX #180 caps metoprolol succinate 25 mg 75 mg PO DAILY 08/29/21 03/13/25 History tablet,extended release 24 hr (Toprol XL) rivastigmine 4.6 mg/24 hour 4.6 mg transdermal DAILY 08/29/21 03/13/25 History transdermal patch sacubitril 49 mg-valsartan 51 mg 1 tablet PO BID 03/18/22 03/13/25 History tablet (Entresto) lansoprazole 30 mg capsule,delayed 30 mg PO DAILY #90 caps 10/02/22 03/13/25 Rx release apixaban 5 mg tablet (Eliquis) 5 mg PO Q12H #60 tabs 05/28/23 03/13/25 Rx aspirin 81 mg tablet,delayed 81 mg PO DAILY 10/25/23 03/13/25 History release (Adult Aspirin Regimen) rosuvastatin 40 mg tablet 40 mg PO DAILY 10/25/23 03/13/25 History cholecalciferol (vitamin D3) 25 25 mcg PO DAILY #90 caps 10/26/23 03/13/25 Rx mcg (1,000 unit) capsule acetaminophen 500 mg capsule 1,000 mg (2 x 500 mg) PO Q6H PRN 01/27/24 03/13/25 Rx pain #120 caps diclofenac sodium 1 % topical gel 4 g topical QID PRN pain #100 grams 11/07/24 03/13/25 Rx (Arthritis Pain (diclofenac)) Allergies Allergy/AdvReac Type Severity Reaction Status Date / Time apricot Allergy Severe throat Verified 03/13/25 16:30 SWELLING Vital Signs Vital Signs - 24 hr 03/13/25 16:07 03/13/25 16:18 03/13/25 16:47 Temperature 98.2 F 98.1 F Pulse Rate 94 95 92 Respiratory Rate 16 16 30 H Blood Pressure 87/62 L 101/67 100/63 Pulse Oximetry 99 100 100 03/13/25 17:02 03/13/25 17:17 03/13/25 17:32 Temperature Pulse Rate 91 91 91 Respiratory Rate 29 H 22 H 18 Blood Pressure 105/61 95/62 L 104/69 Pulse Oximetry 100 99 100 03/13/25 20:23 Temperature Pulse Rate 86 Respiratory Rate 16 Blood Pressure 128/68 Pulse Oximetry 100 Exam Const: General: comfortable and no acute distress Other: Obese, A&O x3 HENMT: Mouth: Yes moist mucous membranes Eyes: Pupils: Equal, round and reactive pupils present Neck: Neck: supple Resp: Effort & Inspection: normal respiratory effort Auscultation: clear to auscultation bilaterally Cardio: Rate: regular rate Rhythm: regular rhythm GI: Inspection: non-distended GI Palp: Yes Soft to palpation Extrem: General: no edema Other: Right lower extremity tense and edematous, tender to deep palpation H&P: Results Labs Labs: Short CBC 03/13/25 Range/Units 17:48 WBC 9.9 (4.5-10.0) K/mm3 Hgb 12.0 L (14.0-18.0) g/dL Hct 37.1 L (42.0-52.0) % Plt Count 317 (150-375) k/mm3 BMP 03/13/25 17:48 Sodium 138 Potassium 4.6 Chloride 107 Carbon Dioxide 22 BUN 22 H Creatinine 1.61 H Glucose 105 Calcium 8.6 Liver Function 03/13/25 Range/Units 17:48 Total Bilirubin 1.0 (0.2-1.3) mg/dL AST 29 (17-59) U/L ALT 17 (6-50) U/L Alkaline Phosphatase 89 (38-126) U/L Albumin 3.7 (3.5-5.1) g/dL Assessment and Plan Assessment and plan (1) Elevated serum creatinine: Code(s): R79.89 - Other specified abnormal findings of blood chemistry Status: Acute (2) DVT (deep venous thrombosis): Code(s): I82.409 - Acute embolism and thrombosis of unspecified deep veins of unspecified lower extremity Status: Acute Plan 74-year-old male with multiple medical comorbidities including class 2 obesity, history of PE, memory loss presents with 2 days of right lower extremity swelling and pain. He is on Eliquis. Reports being compliant. He is from an assisted living facility. Initial workup reveals serum creatinine 1.61, right lower extremity venous Doppler with extensive deep venous thrombosis of the right popliteal, posterior tibial, peroneal and gastrocnemius veins. Chest CTA does not reveal pulmonary embolism, and a stable fusiform ascending thoracic aortic aneurysm measuring 5.8 cm. Hematology consulted from ER, recommended therapeutic Lovenox. Patient aware of risk of considering the aortic aneurysm size. They do not want transfer and did not want surgical intervention. ----- Received Lovenox 125 mg subcutaneous x1. Elevated serum creatinine at 1.61. This is higher than his baseline and he did receive IV contrast. Start sodium chloride infusion at 100 cc an and trend renal function. ----- Patient wishes to be full code. Diabetic diet Hospitalist MIPS Advance Care Plan I have confirmed that the patient's Advanced Care Plan is present, code status is documented, or surrogate decision maker is listed in patient medical record.: Yes Medication Reconciliation I have utilized all available resources to obtain, update and review the patients current medications (includes all prescriptions, OTC, herbals, cannabis, and nutritional supplements).: Yes
[2025-03-13] MEDS: SODIUM CHLORIDE 0.9% IV 1,000 ML 100 ML IV CONT (22:45)
[2025-03-14] MEDS: MELATONIN 5 MG TABLET PO ×2 (00:40→23:29)
[2025-03-14 04:00] VITALS: BP 100/55; PULSE 80; RESP 14; TEMP 36.6; O2SAT 96
[2025-03-14 06:00] VITALS: BP 100/55; PULSE 80; RESP 14; TEMP 36.6; O2SAT 96
[2025-03-14 06:50] LABS: Hematocrit 35.2 % (42.0-52.0); Hemoglobin 11.1 g/dL (14.0-18.0); Immature Granulocyte Percent A 0.6 % (0-0.5); Lymphocytes Absolute Auto 0.98 K/mm3 (0.9-3.2); Mean Corpuscular HGB Conc 31.5 g/dl (32-36); Mean Corpuscular Hemoglobin 27.6 pg (26-34); Mean Corpuscular Volume 87.6 fl (80-100); Nucleated Red Blood Cells Absolute Auto 0.000 K/mm3 (0.0-0.012); Nucleated Red Blood Cells Perc 0.0 % (0.0-0.2); Platelet Count Result 264 k/mm3 (150-375); Red Blood Count 4.02 M/mm3 (4.6-6.20); White Blood Count 8.5 K/mm3 (4.5-10.0)
[2025-03-14 07:04] LABS: INR 1.3; Prothrombin Time 16.5 Seconds (11.1-14.7)
[2025-03-14 07:05] LABS: Partial Thromboplastin Time 42.3 Seconds (22.3-36.8)
[2025-03-14 07:21] LABS: Anion Gap 10 mmol/L (4-12); Blood Urea Nitrogen 22 mg/dL (9-20); Calcium 8.2 mg/dL (8.4-10.2); Carbon Dioxide 20 mmol/L (22-30); Chloride 107 mmol/L (98-107); Estimated CRCL calculation 59 ml/min; Estimated Glomerular Filt Rate 55; Glucose 114 mg/dL (65-110); Magnesium 2.2 mg/dL (1.6-2.3); Potassium 4.2 mmol/L (3.4-5.0); Sodium 137 mmol/L (137-145)
[2025-03-14] MEDS: ROSUVASTATIN 20 MG TABLET 40 MG PO (09:08)
[2025-03-14] MEDS: LANSOPRAZOLE ODT 30 MG TAB.RAP.DR PO (11:50)
[2025-03-14] MEDS: ENOXAPARIN 120 MG/0.8 ML SYRINGE SUB-Q ×2 (12:16→21:29)
[2025-03-14 14:00] VITALS: BP 113/72; PULSE 83; RESP 22; TEMP 36.4; O2SAT 97
--- NOTE | 2025-03-14 15:06 | P.PNIM_ITS ---
Progress Note: A&P Assessment and Plan (1) DVT (deep venous thrombosis): Code(s): I82.409 - Acute embolism and thrombosis of unspecified deep veins of unspecified lower extremity Status: Acute Assessment and Plan: Venous Doppler: There is deep venous thrombosis of the right popliteal, posterior tibial, peroneal and gastrocnemius veins. The greater saphenous vein is patent. Common femoral vein is patent. Patient with previous history of PE reports he is compliant with his Eliquis * Hematology been consulted from the emergency department recommended full-dose Lovenox b.i.d. * Patient currently does not want surgical intervention IVC filter Would recommend outpatient hypercoagulable studies * Will discontinue patient's Eliquis at this time (2) HTN (hypertension): Qualifiers: Hypertension type: essential hypertension Qualified Code(s): I10 - Essential (primary) hypertension Code(s): I10 - Essential (primary) hypertension Status: Acute Assessment and Plan: * Resume patient's hydralazine and metoprolol * Monitor BP per unit protocol (3) Congestive heart failure: Qualifiers: Heart failure type: combined systolic and diastolic Heart failure chronicity: chronic Qualified Code(s): I50.42 - Chronic combined systolic (congestive) and diastolic (congestive) heart failure Code(s): I50.9 - Heart failure, unspecified Status: Acute Assessment and Plan: Patient with history of CHF does not appear and exacerbation * Resume patient's prolactin alone, Entresto, and metoprolol (4) Thoracic aortic aneurysm without rupture: Qualifiers: Thoracic aorta location: ascending aorta Qualified Code(s): I71.21 - Aneurysm of the ascending aorta, without rupture Code(s): I71.2 - Thoracic aortic aneurysm, without rupture Status: Acute Assessment and Plan: CTA showing a 5.8 patient aware reports has been followed outpatient currently does not want any invasive surgical intervention (5) Obesity: Qualifiers: Obesity type: due to excess calories Obesity classification: adult class 2 (BMI 35 - 39.9) Serious obesity comorbidity presence: with serious comorbidity Body mass index: BMI 39.0-39.9 Qualified Code(s): E66.01 - Morbid (severe) obesity due to excess calories; Z68.39 - Body mass index [BMI] 39.0- 39.9, adult Code(s): E66.9 - Obesity, unspecified Status: Acute Assessment and Plan: * Recommended heart healthy diet * Recommended to increase activity daily Plan Code status: Full code per patient DVT prophylaxis: Lovenox full dose b.i.d. Stress ulcer prophylaxis: NA PT/OT notes: PT evaluation pending Disposition: Patient continues admission to the medical unit currently on full dose Lovenox for extensive DVT the right lower extremity even while on Eliquis ANISH improving with IV fluids the patient has had minimal ambulation PT evaluation pending but plan is to return to his assisted living at discharge. Time Spent With Patient Time with patient: 15 - 25 minutes Subjective Date/time seen: 03/14/25 15:06 Interval history: Patient is 74-year-old male admitted for further evaluation right lower extremity swelling with venous Doppler showing extensive DVT in the right popliteal, posterior tibial, peroneal and gastrocnemius vein currently compliant on Eliquis cyst outpatient. 03/14/2025: Assumed Care Patient with no complaints other than mild to moderate lower extremity pain that is intermittent denies any chest pain, shortness a breath, nausea, vomiting. Had a long conversation with patient regarding possible need for IVC filter as well as concern for his 5.8 cm aortic aneurysm at this time patient does not want any extensive surgical interventions will continue with full-dose Lovenox b.i.d. per Hematology recommendations. Review of Systems Review of Systems: All systems reviewed & are unremarkable except as noted in HPI and below (Subjective) Exam Const: General: comfortable and no acute distress Other: Obese, A&O x3 HENMT: Mouth: Yes moist mucous membranes Eyes: Pupils: Equal, round and reactive pupils present Neck: Neck: supple Resp: Effort & Inspection: normal respiratory effort Auscultation: clear to auscultation bilaterally Cardio: Rate: regular rate Rhythm: regular rhythm GI: Inspection: non-distended Neuro: Cranial nerves: Yes Equal, round and reactive pupils present Extrem: General: no edema Other: Right lower extremity tense and edematous, tender to deep palpation Objective Data Vital Signs Vital Signs: Vital Signs - 24 hr 03/13/25 16:07 03/13/25 16:18 03/13/25 16:47 Temperature 98.2 F 98.1 F Pulse Rate 94 95 92 Respiratory Rate 16 16 30 H Blood Pressure 87/62 L 101/67 100/63 Pulse Oximetry 99 100 100 Oxygen Delivery 03/13/25 17:02 03/13/25 17:17 03/13/25 17:32 Temperature Pulse Rate 91 91 91 Respiratory Rate 29 H 22 H 18 Blood Pressure 105/61 95/62 L 104/69 Pulse Oximetry 100 99 100 Oxygen Delivery 03/13/25 20:23 03/13/25 22:35 03/13/25 23:04 Temperature 98.2 F Pulse Rate 86 86 Respiratory Rate 16 17 Blood Pressure 128/68 100/59 L Pulse Oximetry 100 99 Oxygen Delivery Room Air 03/13/25 23:56 03/14/25 04:00 03/14/25 06:00 Temperature 97.7 F 97.9 F 97.9 F Pulse Rate 84 80 80 Respiratory Rate 16 14 14 Blood Pressure 100/56 L 100/55 L 100/55 L Pulse Oximetry 95 96 96 Oxygen Delivery Intake/Output Intake/Output: Intake & Output 03/11/25 03/12/25 03/13/25 03/14/25 23:59 23:59 23:59 23:59 Intake Total 660 Output Total 1100 Balance -440 Meds/Results Medications: Active Medications Generic Name Dose Route Start Last Admin Trade Name Freq PRN Reason Stop Dose Admin Buspirone HCl 5 mg 03/14/25 09:00 03/14/25 09:08 Buspirone Hcl 5 Mg Tablet PO 5 mg Q12HR ANGELICA Administration Dextrose 12.5 gm 03/13/25 21:11 Dextrose 50% 25 Gm/50 Ml Syringe IV PUSH PRN PRN Hypoglycemia Protocol Enoxaparin Sodium 120 mg 03/14/25 12:15 03/14/25 12:16 Enoxaparin 120 Mg/0.8 Ml Syringe SUB-Q 04/12/25 09:01 120 mg Q12HR ANGELICA Administration Glucose 15 gm 03/13/25 21:11 Glucose Oral Gel 15 Gm Of Glucse In 37.5 Gm Tube PO PRN PRN Hypoglycemia Protocol Dextrose 1,000 mls @ 100 mls/hr 03/13/25 21:11 Dextrose 5% 1,000 Ml IVPB PRN PRN Hypoglycemia Protocol Insulin Aspart 2 - 5 units 03/14/25 08:00 03/14/25 11:53 Insulin Aspart (*Bkc) 100 Units/Ml SUB-Q Not Given TIDWM ANGELICA Protocol Insulin Aspart 1 - 2 units 03/14/25 21:00 Insulin Aspart (*Bkc) 100 Units/Ml SUB-Q HS ANGELICA Protocol Lansoprazole 30 mg 03/14/25 11:30 03/14/25 11:50 Lansoprazole Odt 30 Mg Tab.Rap.Dr PO 30 mg DAILY@1130 ANGELICA Administration Melatonin 5 mg 03/14/25 00:30 03/14/25 00:40 Melatonin 5 Mg Tablet PO 5 mg HS PRN Administration insomnia Mirtazapine 15 mg 03/14/25 21:00 Mirtazapine 15 Mg Tablet PO QHS [facility] Rosuvastatin Calcium 40 mg 03/14/25 09:00 03/14/25 09:08 Rosuvastatin 20 Mg Tablet PO 40 mg DAILY ANGELICA Administration Radiology Results: ITS Impressions Venous Doppler Study 03/13/25 17:53 IMPRESSION: 1: Extensive deep venous thrombosis of the right lower extremity. Chest CTA 03/13/25 18:57 IMPRESSION: 1. Stable fusiform ascending thoracic aortic aneurysm measuring 5.8 cm. 2: No evidence for pulmonary embolism. Labs Labs: Laboratory Results - last 24 hr 03/13/25 03/13/25 03/13/25 17:48 17:48 20:37 WBC 9.9 RBC 4.39 L Hgb 12.0 L Hct 37.1 L MCV 84.5 MCH 27.3 MCHC 32.3 RDW 13.6 Plt Count 317 MPV 9.0 Immature Gran % (Auto) 0.4 Neut % (Auto) 74.0 H Lymph % (Auto) 13.3 L Wallace % (Auto) 10.4 H Eos % (Auto) 1.6 Baso % (Auto) 0.3 Lymph # (Auto) 1.31 Wallace # (Auto) 1.0 H Eos # (Auto) 0.2 Baso # (Auto) 0.0 Abs Immat Gran (auto) 0.04 H Absolute Neuts (auto) 7.3 H Absolute Nucleated RBC 0.000 Nucleated RBC % 0.0 PT 16.4 H INR 1.3 APTT 33.8 Sodium 138 Potassium 4.6 Chloride 107 Carbon Dioxide 22 Anion Gap 9 BUN 22 H Creatinine 1.61 H Estim Creat Clear Calc 48 Estimated GFR 42 L Glucose 105 POC Capillary Glucose 96 Calcium 8.6 Magnesium Total Bilirubin 1.0 AST 29 ALT 17 Alkaline Phosphatase 89 NT-Pro-B Natriuret Pep 486 H Cancelled Total Protein 6.8 Albumin 3.7 03/13/25 03/14/25 03/14/25 22:17 06:25 07:41 WBC 8.5 RBC 4.02 L Hgb 11.1 L Hct 35.2 L MCV 87.6 MCH 27.6 MCHC 31.5 L RDW 13.8 Plt Count 264 MPV 9.0 Immature Gran % (Auto) 0.6 H Neut % (Auto) 74.1 H Lymph % (Auto) 11.5 L Wallace % (Auto) 10.5 H Eos % (Auto) 2.9 Baso % (Auto) 0.4 Lymph # (Auto) 0.98 Wallace # (Auto) 0.9 H Eos # (Auto) 0.3 Baso # (Auto) 0.0 Abs Immat Gran (auto) 0.05 H Absolute Neuts (auto) 6.3 Absolute Nucleated RBC 0.000 Nucleated RBC % 0.0 PT 16.5 H INR 1.3 APTT 42.3 H Sodium 137 Potassium 4.2 Chloride 107 Carbon Dioxide 20 L Anion Gap 10 BUN 22 H Creatinine 1.28 Estim Creat Clear Calc 59 Estimated GFR 55 L Glucose 114 H POC Capillary Glucose 115 H 116 H Calcium 8.2 L Magnesium 2.2 Total Bilirubin AST ALT Alkaline Phosphatase NT-Pro-B Natriuret Pep Total Protein Albumin 03/14/25 11:30 WBC RBC Hgb Hct MCV MCH MCHC RDW Plt Count MPV Immature Gran % (Auto) Neut % (Auto) Lymph % (Auto) Wallace % (Auto) Eos % (Auto) Baso % (Auto) Lymph # (Auto) Wallace # (Auto) Eos # (Auto) Baso # (Auto) Abs Immat Gran (auto) Absolute Neuts (auto) Absolute Nucleated RBC Nucleated RBC % PT INR APTT Sodium Potassium Chloride Carbon Dioxide Anion Gap BUN Creatinine Estim Creat Clear Calc Estimated GFR Glucose POC Capillary Glucose 121 H Calcium Magnesium Total Bilirubin AST ALT Alkaline Phosphatase NT-Pro-B Natriuret Pep Total Protein Albumin Quality VTE Prophylaxis VTE prophylaxis: pharmacologic ordered -Patient's previous records reviewed on admission -ER notes reviewed in detail on admission -discussed all findings and current treatment plan with patient/Family/POA -Consultations reviewed for recommendations -Patient's disposition for safe discharge discussed with pillowcase turner Dictation performed by [employer] direct speech recognition software, therefore display fabricator variants and typographical errors may occur. Hospitalist MIPS Advance Care Plan I have confirmed that the patient's Advanced Care Plan is present, code status is documented, or surrogate decision maker is listed in patient medical record.: Yes Medication Reconciliation I have utilized all available resources to obtain, update and review the patients current medications (includes all prescriptions, OTC, herbals, cannabis, and nutritional supplements).: Yes The patient is not eligible for med reconciliation; the patient is in a emergent medical situation where delaying treatment would jeopardize the patients health.: No
[2025-03-14] MEDS: HYDROcodone/acetaminophen (*CRX) 5-325 MG TABLET 1 TAB PO ×2 (15:50→21:29)
[2025-03-14] MEDS: SACUBITRIL/VALSARTAN 49-51 MG TABLET 1 TABLET PO (18:02)
[2025-03-14 20:00] VITALS: BP 100/77; PULSE 85; RESP 20; TEMP 36.9; O2SAT 99
[2025-03-14] MEDS: MIRTAZAPINE 15 MG TABLET PO (21:29)
[2025-03-14 22:00] VITALS: BP 100/77; PULSE 85; RESP 20; TEMP 36.9; O2SAT 99
[2025-03-15] VITALS: BP 118/58; PULSE 91; RESP 16; TEMP 36.9; O2SAT 95
[2025-03-15 04:00] VITALS: BP 102/47; PULSE 91; RESP 16; TEMP 36.6; O2SAT 95
[2025-03-15] MEDS: SPIRONOLACTONE 25 MG TABLET PO (07:59)
[2025-03-15] MEDS: ROSUVASTATIN 20 MG TABLET 40 MG PO (07:59)
[2025-03-15] MEDS: POTASSIUM CHLORIDE 20 MEQ ER TABLET PO (07:59)
[2025-03-15 08:00] VITALS: BP 101/53; PULSE 85; PULSE 88; RESP 18; TEMP 36.3; O2SAT 95
[2025-03-15] MEDS: SACUBITRIL/VALSARTAN 49-51 MG TABLET 1 TABLET PO ×2 (08:00→17:22)
[2025-03-15] MEDS: METOPROLOL SUCCINATE EXT REL 25 MG TABCR 75 MG PO (08:00)
[2025-03-15] MEDS: HYDROcodone/acetaminophen (*CRX) 5-325 MG TABLET 1 TAB PO (08:00)
[2025-03-15] MEDS: FUROSEMIDE 40 MG TABLET PO (08:01)
[2025-03-15] MEDS: MULTIVITAMINS THERAPEUTIC TAB (*BKC) 1 TABLET PO (08:01)
[2025-03-15] MEDS: RIVASTIGMINE TARTRATE 4.6 MG PATCH 1 PATCH TRANSDERM (08:01)
[2025-03-15] MEDS: EMPAGLIFLOZIN 10 MG TABLET PO (08:01)
[2025-03-15] MEDS: ENOXAPARIN 120 MG/0.8 ML SYRINGE SUB-Q (08:02)
[2025-03-15 08:06] LABS: Potassium 4.1 mmol/L (3.4-5.0)
[2025-03-15] MEDS: LANSOPRAZOLE ODT 30 MG TAB.RAP.DR PO (12:17)
[2025-03-15] MEDS: HYDROmorphone HCL INJ (*CRX) 1 MG/ML SYR IV PUSH ×2 (13:21→18:35)
--- NOTE | 2025-03-15 13:30 | P.PNIM_ITS ---
Progress Note: A&P Assessment and Plan (1) DVT (deep venous thrombosis): Code(s): I82.409 - Acute embolism and thrombosis of unspecified deep veins of unspecified lower extremity Status: Acute Assessment and Plan: Venous Doppler: There is deep venous thrombosis of the right popliteal, posterior tibial, peroneal and gastrocnemius veins. The greater saphenous vein is patent. Common femoral vein is patent. Patient with previous history of PE reports he is compliant with his Eliquis * Hematology been consulted from the emergency department recommended full-dose Lovenox b.i.d. for one month * Patient currently does not want surgical intervention IVC filter Would recommend outpatient hypercoagulable studies * Will discontinue patient's Eliquis at this time * If no improvement he will likely need evaluation by vascular o/p (2) HTN (hypertension): Qualifiers: Hypertension type: essential hypertension Qualified Code(s): I10 - Essential (primary) hypertension Code(s): I10 - Essential (primary) hypertension Status: Acute Assessment and Plan: * Resume patient's hydralazine and metoprolol * Monitor BP per unit protocol (3) Congestive heart failure: Qualifiers: Heart failure type: combined systolic and diastolic Heart failure chronicity: chronic Qualified Code(s): I50.42 - Chronic combined systolic (congestive) and diastolic (congestive) heart failure Code(s): I50.9 - Heart failure, unspecified Status: Acute Assessment and Plan: Patient with history of CHF does not appear and exacerbation * Resume patient's prolactin alone, Entresto, and metoprolol (4) Thoracic aortic aneurysm without rupture: Qualifiers: Thoracic aorta location: ascending aorta Qualified Code(s): I71.21 - Aneurysm of the ascending aorta, without rupture Code(s): I71.2 - Thoracic aortic aneurysm, without rupture Status: Acute Assessment and Plan: CTA showing a 5.8 patient aware reports has been followed outpatient currently does not want any invasive surgical intervention (5) Obesity: Qualifiers: Obesity type: due to excess calories Obesity classification: adult class 2 (BMI 35 - 39.9) Serious obesity comorbidity presence: with serious comorbidity Body mass index: BMI 39.0-39.9 Qualified Code(s): E66.01 - Morbid (severe) obesity due to excess calories; Z68.39 - Body mass index [BMI] 39.0- 39.9, adult Code(s): E66.9 - Obesity, unspecified Status: Acute Assessment and Plan: * Recommended heart healthy diet * Recommended to increase activity daily Plan Code status: Full code per patient DVT prophylaxis: Lovenox full dose b.i.d. Stress ulcer prophylaxis: NA PT/OT notes: PT evaluation pending Disposition: Patient continues admission to the medical unit currently on full dose Lovenox for extensive DVT the right lower extremity even while on Eliquis ANISH improving with IV fluids the patient has had minimal ambulation PT evaluation pending but plan is to return to his assisted living at discharge. prescription sent can discharge back once his assisted living can have available and PT eval. Time Spent With Patient Time with patient: 15 - 25 minutes Subjective Date/time seen: 03/15/25 13:30 Interval history: Patient is 74-year-old male admitted for further evaluation right lower extremity swelling with venous Doppler showing extensive DVT in the right popliteal, posterior tibial, peroneal and gastrocnemius vein currently compliant on Eliquis cyst outpatient. 03/15/2025: Assumed Care Patient reporting moderate pain to the right leg, swelling with little improvement. PT evaluation pending. Patient otherwise feeling ok but weak. Review of Systems Review of Systems: All systems reviewed & are unremarkable except as noted in HPI and below (Subjective) Exam Const: General: comfortable and no acute distress Other: Obese, A&O x3 HENMT: Mouth: Yes moist mucous membranes Eyes: Pupils: Equal, round and reactive pupils present Neck: Neck: supple Resp: Effort & Inspection: normal respiratory effort Auscultation: clear to auscultation bilaterally Cardio: Rate: regular rate Rhythm: regular rhythm GI: Inspection: non-distended Neuro: Cranial nerves: Yes Equal, round and reactive pupils present Extrem: General: no edema Other: Right lower extremity tense and edematous, tender to deep palpation Objective Data Vital Signs Vital Signs: Vital Signs - 24 hr 03/14/25 14:00 03/14/25 20:00 03/14/25 20:00 Temperature 97.6 F 98.5 F Pulse Rate 83 85 Respiratory Rate 22 H 20 Blood Pressure 113/72 100/77 Pulse Oximetry 97 99 Oxygen Delivery Room Air 03/14/25 22:00 03/15/25 00:00 03/15/25 04:00 Temperature 98.5 F 98.4 F 97.9 F Pulse Rate 85 91 91 Respiratory Rate 20 16 16 Blood Pressure 100/77 118/58 L 102/47 L Pulse Oximetry 99 95 95 Oxygen Delivery 03/15/25 08:00 03/15/25 08:00 03/15/25 08:00 Temperature 97.3 F L Pulse Rate 88 85 Respiratory Rate 18 Blood Pressure 101/53 L Pulse Oximetry 95 Oxygen Delivery Room Air Intake/Output Intake/Output: Intake & Output 03/12/25 03/13/25 03/14/25 03/15/25 23:59 23:59 23:59 23:59 Intake Total 1782 250 Output Total 1700 Balance 82 250 Meds/Results Medications: Active Medications Generic Name Dose Route Start Last Admin Trade Name Freq PRN Reason Stop Dose Admin Acetaminophen 650 mg 03/14/25 15:05 Acetaminophen 325 Mg Tablet PO Q6H PRN Mild Pain (1-3) or Fever Hydrocodone Bitart/Acetaminophen 1 tab 03/14/25 15:05 03/15/25 08:00 Hydrocodone/Acetaminophen (*Crx) 5-325 Mg Tablet PO 1 tab Q4H PRN Administration Pain Rated 4-6 Buspirone HCl 5 mg 03/14/25 09:00 03/15/25 07:59 Buspirone Hcl 5 Mg Tablet PO 5 mg Q12HR ANGELICA Administration Dextrose 12.5 gm 03/13/25 21:11 Dextrose 50% 25 Gm/50 Ml Syringe IV PUSH PRN PRN Hypoglycemia Protocol Empagliflozin 10 mg 03/15/25 09:00 03/15/25 08:01 Empagliflozin 10 Mg Tablet PO 10 mg DAILY ANGELICA Administration Enoxaparin Sodium 120 mg 03/14/25 12:15 03/15/25 08:02 Enoxaparin 120 Mg/0.8 Ml Syringe SUB-Q 04/12/25 09:01 120 mg Q12HR ANGELICA Administration Furosemide 40 mg 03/15/25 09:00 03/15/25 08:01 Furosemide 40 Mg Tablet PO 40 mg DAILY ANGELICA Administration Glucose 15 gm 03/13/25 21:11 Glucose Oral Gel 15 Gm Of Glucse In 37.5 Gm Tube PO PRN PRN Hypoglycemia Protocol Hydromorphone HCl 1 mg 03/15/25 12:53 03/15/25 13:21 Hydromorphone Hcl Inj (*Crx) 1 Mg/Ml Syr IV PUSH 1 mg Q3H PRN Administration Pain Rated 7-10 Dextrose 1,000 mls @ 100 mls/hr 03/13/25 21:11 Dextrose 5% 1,000 Ml IVPB PRN PRN Hypoglycemia Protocol Insulin Aspart 2 - 5 units 03/14/25 08:00 03/15/25 12:34 Insulin Aspart (*Bkc) 100 Units/Ml SUB-Q Not Given TIDWM ANGELICA Protocol Insulin Aspart 1 - 2 units 03/14/25 21:00 03/14/25 21:30 Insulin Aspart (*Bkc) 100 Units/Ml SUB-Q Not Given HS [facility] Protocol Lansoprazole 30 mg 03/14/25 11:30 03/15/25 12:17 Lansoprazole Odt 30 Mg Tab. PO 30 mg DAILY@1130 ANGELICA Administration Melatonin 5 mg 03/14/25 00:30 03/14/25 23:29 Melatonin 5 Mg Tablet PO 5 mg HS PRN Administration insomnia Metoprolol Succinate 75 mg 03/15/25 09:00 03/15/25 08:00 Metoprolol Succinate Ext Rel 25 Mg Tabcr PO 75 mg DAILY ANGELICA Administration Mirtazapine 15 mg 03/14/25 21:00 03/14/25 21:29 Mirtazapine 15 Mg Tablet PO 15 mg QHS ANGELICA Administration Multivitamins Therapeutic 1 tablet 03/15/25 09:00 03/15/25 08:01 Multivitamins Therapeutic Tab (*Bkc) PO 1 tablet DAILY ANGELICA Administration Ondansetron HCl 4 mg 03/14/25 15:05 Ondansetron Inj 4 Mg/2 Ml Vial IV PUSH Q6H PRN Nausea And Vomiting Potassium Chloride 20 meq 03/15/25 09:00 03/15/25 07:59 Potassium Chloride 20 Meq Er Tablet PO 20 meq DAILY ANGEILCA Administration Rivastigmine 1 patch 03/15/25 09:00 03/15/25 08:01 Rivastigmine Tartrate 4.6 Mg Patch TRANSDERM 1 patch DAILY ANGELICA Administration Rosuvastatin Calcium 40 mg 03/14/25 09:00 03/15/25 07:59 Rosuvastatin 20 Mg Tablet PO 40 mg DAILY ANGELICA Administration Sacubitril/Valsartan 1 tablet 03/14/25 17:00 03/15/25 08:00 Sacubitril/Valsartan 49-51 Mg Tablet PO 1 tablet BID ANGELICA Administration Spironolactone 25 mg 03/15/25 09:00 03/15/25 07:59 Spironolactone 25 Mg Tablet PO 25 mg QAM ANGELICA Administration Radiology Results: ITS Impressions Venous Doppler Study 03/13/25 17:53 IMPRESSION: 1: Extensive deep venous thrombosis of the right lower extremity. Chest CTA 03/13/25 18:57 IMPRESSION: 1. Stable fusiform ascending thoracic aortic aneurysm measuring 5.8 cm. 2: No evidence for pulmonary embolism. Labs Labs: Laboratory Results - last 24 hr 03/14/25 03/14/25 03/15/25 16:51 21:11 07:24 Potassium 4.1 POC Capillary Glucose 139 H 109 H 03/15/25 03/15/25 07:40 11:34 Potassium POC Capillary Glucose 124 H 143 H Quality VTE Prophylaxis VTE prophylaxis: pharmacologic ordered -Patient's previous records reviewed on admission -ER notes reviewed in detail on admission -discussed all findings and current treatment plan with patient/Family/POA -Consultations reviewed for recommendations -Patient's disposition for safe discharge discussed with heel caser Dictation performed by [email or web address] direct speech recognition software, therefore department clinician variants and typographical errors may occur. Hospitalist MIPS Advance Care Plan I have confirmed that the patient's Advanced Care Plan is present, code status is documented, or surrogate decision maker is listed in patient medical record.: Yes Medication Reconciliation I have utilized all available resources to obtain, update and review the patients current medications (includes all prescriptions, OTC, herbals, cannabis, and nutritional supplements).: Yes The patient is not eligible for med reconciliation; the patient is in a emergent medical situation where delaying treatment would jeopardize the patients health.: No
[2025-03-15 16:00] VITALS: BP 102/64; PULSE 98; RESP 18; TEMP 36.6; O2SAT 98
--- NOTE | 2025-03-15 18:26 | WPDONCCN ---
Assessment and Plan Assessment and plan (1) Deep vein thrombosis (DVT) of right lower extremity: Qualifiers: Affected thrombotic vein of extremity: popliteal Chronicity: acute Qualified Code(s): I82.431 - Acute embolism and thrombosis of right popliteal vein Code(s): I82.401 - Acute embolism and thrombosis of unspecified deep veins of right lower extremity Status: Acute Assessment and Plan: Patient with a history of stage IV Hodgkin lymphoma has been in remission since completion of chemotherapy with ABVD regimen in February 2018. Patient was on Eliquis for previous history of pulmonary embolism came into the hospital with unprovoked right lower extremity swelling and found to have extensive DVT of the right lower extremity. Chest CTA showed no evidence of pulmonary embolism. Patient was started on Lovenox but he remains quite uncomfortable. We will discontinue Lovenox and will start heparin drip. After improvement in his swelling and discomfort then he will start Lovenox at discharge that he will continue. I will follow-up in the office in 3-4 weeks. (2) Hodgkin's lymphoma, adult: Code(s): C81.90 - Hodgkin lymphoma, unspecified, unspecified site Status: Acute Assessment and Plan: I will order CT scan abdomen and pelvis to rule out relapse of the lymphoma. CTA chest showed no evidence of lymphadenopathy. I will also order iron studies, LDH and vitamin B12 level due to anemia. 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 He was last seen in the office in November 2024. Patient also has a history of obesity and pulmonary embolism along with cognitive decline. He came into the hospital with 2 day history of the right lower extremity swelling and pain. Patient was apparently on Eliquis. He lives in the assisted living facility. Doppler study showed extensive DVT of the right popliteal, posterior tibial, peroneal and gastrocnemius vein. Chest CTA does not reveal any evidence of pulmonary embolism. He is still quite uncomfortable with discomfort in the right lower extremity and swelling. He denies any injury, surgery and fall history prior to the development of DVT. Denies any other complaints. He was started on Lovenox. Review of Systems Review of Systems: Twelve point review of system was reviewed [facility] Past Medical History Medical History (Updated 03/13/25 @ 21:12 by Letitia Schmidt MD) Hip osteoarthritis Chronic lower back pain Left hip pain Right rib fracture Flank pain Intertrigo COVID-19 Ascending aortic aneurysm Encounter for routine adult health examination without abnormal findings Essential hypertension Gastroesophageal reflux disease without esophagitis TIA (transient ischemic attack) Depression Cognitive decline JONAH (obstructive sleep apnea) Short-term memory loss Arthritis GERD (gastroesophageal reflux disease) DVT (deep venous thrombosis) Hypercholesterolemia HTN (hypertension) Family History Family History Father Hypertension Family history of coronary artery disease Family history of heart disease in male family member before age 55 Mother Hypertension Family history of congestive heart failure Unknown Heart disease Diabetes mellitus Depression Arthritis Hypertension High cholesterol Other Family history of elevated blood lipids Social History Social History Social History: Currently lives at an [facility]isted [facility] ([place], [place]). Elects his daughter, Aislinn Beaver, as his decision maker. Code Status: Full Code. Smoking status: Former smoker Second hand tobacco smoke exposure: No Alcohol intake: former Substance use: never Substance use type: does not use Do You Feel Safe in your Home?: Yes Lack of Transportation: No Lack of Food: Never True Current Housing: I Have Housing Concerned About Future Housing: No Difficulty Paying Gas/Electric Bills: No Difficulty Paying for Meds: No Currently Unemployed: No Education: Master's Degree or Higher Difficulty w/ Childcare or Family Care: No Living arrangements: assisted living Additional living arrangements comments: [facility] [phone] Occupation/Education: retired Gender identity (if verbalized by the patient): Male Spiritual care concerns: No Meds Home Medications and Allergies Home Medications ?Medication ?Instructions ?Recorded ?Confirmed ?Type multivitamin 1 tablet PO DAILY 04/11/19 03/13/25 History mirtazapine 15 mg tablet 15 mg PO DAILY #1 tablet 11/22/20 03/13/25 Rx vortioxetine 20 mg tablet 20 mg PO DAILY 03/12/21 03/13/25 History (Trintellix) buspirone 5 mg tablet 5 mg PO Q12HR 30 days #60 tabs 08/03/21 03/13/25 Rx empagliflozin 10 mg tablet 10 mg PO DAILY #30 tabs 08/03/21 03/13/25 Rx (Jardiance) furosemide 40 mg tablet 40 mg PO DAILY #30 tabs 08/03/21 03/13/25 Rx potassium chloride 20 mEq 20 meq PO DAILY #30 tabs 08/03/21 03/13/25 Rx tablet,extended release (K-Tab) spironolactone 25 mg tablet 25 mg PO QAM #30 tabs 08/03/21 03/13/25 Rx polysaccharide iron complex 150 mg See Rx Instructions .Route 08/22/21 03/13/25 Rx iron capsule (Ferrex) .COMPLEX #180 caps metoprolol succinate 25 mg 75 mg PO DAILY 08/29/21 03/13/25 History tablet,extended release 24 hr (Toprol XL) rivastigmine 4.6 mg/24 hour 4.6 mg transdermal DAILY 08/29/21 03/13/25 History transdermal patch sacubitril 49 mg-valsartan 51 mg 1 tablet PO BID 03/18/22 03/13/25 History tablet (Entresto) lansoprazole 30 mg capsule,delayed 30 mg PO DAILY #90 caps 10/02/22 03/13/25 Rx release apixaban 5 mg tablet (Eliquis) 5 mg PO Q12H #60 tabs 05/28/23 03/13/25 Rx aspirin 81 mg tablet,delayed 81 mg PO DAILY 10/25/23 03/13/25 History release (Adult Aspirin Regimen) rosuvastatin 40 mg tablet 40 mg PO DAILY 10/25/23 03/13/25 History cholecalciferol (vitamin D3) 25 25 mcg PO DAILY #90 caps 10/26/23 03/13/25 Rx mcg (1,000 unit) capsule acetaminophen 500 mg capsule 1,000 mg (2 x 500 mg) PO Q6H PRN 01/27/24 03/13/25 Rx pain #120 caps diclofenac sodium 1 % topical gel 4 g topical QID PRN pain #100 grams 11/07/24 03/13/25 Rx (Arthritis Pain (diclofenac)) enoxaparin 120 mg/0.8 mL 120 mg (0.8 mL) subcut Q12HR #25 mL 03/15/25 Rx subcutaneous syringe (Lovenox) Allergies Allergy/AdvReac Type Severity Reaction Status Date / Time apricot Allergy Severe throat Verified 03/13/25 16:30 SWELLING Vital Signs Vital Signs - 24 hr 03/14/25 20:00 03/14/25 20:00 03/14/25 22:00 Temperature 36.9 C 36.9 C Pulse Rate 85 85 Respiratory Rate 20 20 Blood Pressure 100/77 100/77 Pulse Oximetry 99 99 Oxygen Delivery Room Air 03/15/25 00:00 03/15/25 04:00 03/15/25 08:00 Temperature 36.9 C 36.6 C Pulse Rate 91 91 88 Respiratory Rate 16 16 Blood Pressure 118/58 L 102/47 L Pulse Oximetry 95 95 Oxygen Delivery 03/15/25 08:00 03/15/25 08:00 03/15/25 12:43 Temperature 36.3 C L Pulse Rate 85 Respiratory Rate 18 Blood Pressure 101/53 L Pulse Oximetry 95 Oxygen Delivery Room Air Room Air 03/15/25 15:20 03/15/25 16:00 Temperature 36.6 C Pulse Rate 98 Respiratory Rate 18 Blood Pressure 102/64 Pulse Oximetry 98 Oxygen Delivery Room Air Exam Narrative: Lungs are clear to auscultation bilaterally Cardiovascular regular rate rhythm no murmurs Abdomen soft nontender nondistended Extremity showed significant right lower extremity edema and tenderness Results Labs 03/14/25 06:25 03/15/25 07:24 Labs: BMP 03/15/25 07:24 Potassium 4.1
[2025-03-15 20:00] VITALS: BP 121/66; PULSE 92; RESP 20; TEMP 36.6; O2SAT 93
[2025-03-15] MEDS: HEPARIN SOD/D5W 100 UNITS/ML 25,000 UNITS/250 ML BAG 15 UNITS IV CONT (20:37)
[2025-03-15] MEDS: MIRTAZAPINE 15 MG TABLET PO (20:37)
[2025-03-15 21:41] LABS: Hematocrit 32.2 % (42.0-52.0); Hemoglobin 10.3 g/dL (14.0-18.0); Mean Corpuscular HGB Conc 32.0 g/dl (32-36); Mean Corpuscular Hemoglobin 27.5 pg (26-34); Mean Corpuscular Volume 85.9 fl (80-100); Platelet Count Result 310 k/mm3 (150-375); Red Blood Count 3.75 M/mm3 (4.6-6.20); White Blood Count 11.7 K/mm3 (4.5-10.0)
[2025-03-15 21:51] LABS: Alanine Aminotransferase 13 U/L (6-50); Albumin Level 3.5 g/dL (3.5-5.1); Alkaline Phosphatase 77 U/L (38-126); Anion Gap 10 mmol/L (4-12); Aspartate Amino Transferase 21 U/L (17-59); Bilirubin,Total 1.4 mg/dL (0.2-1.3); Blood Urea Nitrogen 19 mg/dL (9-20); Calcium 8.2 mg/dL (8.4-10.2); Carbon Dioxide 17 mmol/L (22-30); Chloride 107 mmol/L (98-107); Estimated CRCL calculation 64 ml/min; Estimated Glomerular Filt Rate > 60; Glucose 119 mg/dL (65-110); Potassium 4.0 mmol/L (3.4-5.0); Sodium 134 mmol/L (137-145); Total Protein 6.4 g/dL (6.3-8.2)
[2025-03-15 22:02] LABS: INR 1.2; Prothrombin Time 15.5 Seconds (11.1-14.7)
[2025-03-15 22:03] LABS: Partial Thromboplastin Time 43.4 Seconds (22.3-36.8)
[2025-03-15 22:35] LABS: Ferritin 136.00 ng/mL (11.1-264); Iron 48 ug/dL (49-181); Percent Iron Saturation 19 % (20-50)
[2025-03-15 23:08] LABS: Vitamin B12 293.0 pg/mL (239-931)
[2025-03-16] VITALS (7 sets, daily range): BP systolic 102–125; BP diastolic 61–82; PULSE 80–102; RESP 18–26; TEMP 36.3–37.1; O2SAT 97–100
[2025-03-16] MEDS: HYDROmorphone HCL INJ (*CRX) 1 MG/ML SYR IV PUSH ×3 (00:05→15:19)
[2025-03-16 03:03] LABS: Hematocrit 31.4 % (42.0-52.0); Hemoglobin 10.0 g/dL (14.0-18.0); Mean Corpuscular HGB Conc 31.8 g/dl (32-36); Mean Corpuscular Hemoglobin 27.4 pg (26-34); Mean Corpuscular Volume 86.0 fl (80-100); Platelet Count Result 269 k/mm3 (150-375); Red Blood Count 3.65 M/mm3 (4.6-6.20); White Blood Count 11.6 K/mm3 (4.5-10.0)
[2025-03-16 03:17] LABS: Partial Thromboplastin Time 77.0 Seconds (22.3-36.8)
[2025-03-16 03:23] LABS: Alanine Aminotransferase 13 U/L (6-50); Albumin Level 3.5 g/dL (3.5-5.1); Alkaline Phosphatase 76 U/L (38-126); Anion Gap 9 mmol/L (4-12); Aspartate Amino Transferase 24 U/L (17-59); Bilirubin,Total 1.3 mg/dL (0.2-1.3); Blood Urea Nitrogen 18 mg/dL (9-20); Calcium 8.2 mg/dL (8.4-10.2); Carbon Dioxide 20 mmol/L (22-30); Chloride 107 mmol/L (98-107); Estimated CRCL calculation 65 ml/min; Estimated Glomerular Filt Rate > 60; Glucose 121 mg/dL (65-110); Magnesium 2.0 mg/dL (1.6-2.3); Potassium 4.0 mmol/L (3.4-5.0); Sodium 136 mmol/L (137-145); Total Protein 6.3 g/dL (6.3-8.2)
[2025-03-16] MEDS: HYDROcodone/acetaminophen (*CRX) 5-325 MG TABLET 1 TAB PO ×2 (04:26→16:04)
[2025-03-16] MEDS: POTASSIUM CHLORIDE 20 MEQ ER TABLET PO (09:08)
[2025-03-16] MEDS: EMPAGLIFLOZIN 10 MG TABLET PO (09:08)
[2025-03-16] MEDS: ROSUVASTATIN 20 MG TABLET 40 MG PO (09:08)
[2025-03-16] MEDS: SACUBITRIL/VALSARTAN 49-51 MG TABLET 1 TABLET PO ×2 (09:08→17:30)
[2025-03-16] MEDS: FUROSEMIDE 40 MG TABLET PO (09:08)
[2025-03-16] MEDS: SPIRONOLACTONE 25 MG TABLET PO (09:08)
[2025-03-16] MEDS: MULTIVITAMINS THERAPEUTIC TAB (*BKC) 1 TABLET PO (09:08)
[2025-03-16] MEDS: RIVASTIGMINE TARTRATE 4.6 MG PATCH 1 PATCH TRANSDERM (09:09)
[2025-03-16] MEDS: METOPROLOL SUCCINATE EXT REL 25 MG TABCR 75 MG PO (09:09)
[2025-03-16 09:34] LABS: Partial Thromboplastin Time 73.9 Seconds (22.3-36.8)
[2025-03-16] MEDS: LANSOPRAZOLE ODT 30 MG TAB.RAP.DR PO (11:51)
[2025-03-16] MEDS: HEPARIN SOD/D5W 100 UNITS/ML 25,000 UNITS/250 ML BAG 15 UNITS IV CONT (13:20)
--- NOTE | 2025-03-16 14:45 | P.PNIM_ITS ---
Progress Note: A&P Assessment and Plan (1) DVT (deep venous thrombosis): Code(s): I82.409 - Acute embolism and thrombosis of unspecified deep veins of unspecified lower extremity <Cas Mcgee, Student - Last Filed: 03/16/25 15:06> Status: Acute <Cas Mcgee, Student - Last Filed: 03/16/25 15:06> Assessment and Plan: Venous Doppler: There is deep venous thrombosis of the right popliteal, posterior tibial, peroneal and gastrocnemius veins. The greater saphenous vein is patent. Common femoral vein is patent. Patient with previous history of PE reports he is compliant with his Eliquis * Hematology has been consulted from the emergency department and recommended full-dose Lovenox b.i.d. for one month at discharge * Heparin drip per hematology recommendation * CT abdomen pelvis to rule out return of lymphoma ordered by hematology pending at time of documentation * Patient currently does not want surgical intervention IVC filter * Would recommend outpatient hypercoagulable studies * Will discontinue patient's Eliquis at this time * Reports increased pain in the affected extremity, likely secondary to josé miguel scularization * Posterior tibial pulse weak but palpable today * If no significant improvement he will likely need evaluation by vascular o/p <Cas Mcgee, Student - Last Filed: 03/16/25 15:06> Venous Doppler: There is deep venous thrombosis of the right popliteal, posterior tibial, peroneal and gastrocnemius veins. The greater saphenous vein is patent. Common femoral vein is patent. Patient with previous history of PE reports he is compliant with his Eliquis * Hematology has been consulted from the emergency department and recommended initially full-dose Lovenox b.i.d. for one month at discharge plan for this when patient is discharged however due to patient's continued pain and swelling for recommended to start a Heparin drip return to continue for a few days likely then transition back to Lovenox * CT abdomen pelvis to rule out return of lymphoma ordered by hematology pending at time of documentation * Patient currently does not want surgical intervention IVC filter * Would recommend outpatient hypercoagulable studies * Will discontinue patient's Eliquis at this time * Reports increased pain in the affected extremity, likely secondary to revascularization * Posterior tibial pulse weak but palpable today * If no significant improvement he will likely need evaluation by vascular o/p <Cinthya Helton, SOLUTION SALES SENIOR EXECUTIVE - Last Filed: 03/16/25 15:13> (2) HTN (hypertension): Qualifiers: Hypertension type: essential hypertension Qualified Code(s): I10 - Essential (primary) hypertension <Cas Mcgee, Student - Last Filed: 03/16/25 15:06> Code(s): I10 - Essential (primary) hypertension <Cas Mcgee, Student - Last Filed: 03/16/25 15:06> Status: Acute <Cas Mcgee, Student - Last Filed: 03/16/25 15:06> Assessment and Plan: * Resume patient's hydralazine and metoprolol * Monitor BP per unit protocol <Cas Mcgee, Student - Last Filed: 03/16/25 15:06> (3) Congestive heart failure: Qualifiers: Heart failure chronicity: chronic Heart failure type: combined systolic and diastolic Qualified Code(s): I50.42 - Chronic combined systolic (congestive) and diastolic (congestive) heart failure <Cas Mcgee, Student - Last Filed: 03/16/25 15:06> Code(s): I50.9 - Heart failure, unspecified <Cas PerezBib Mcgee, - Last Filed: 03/16/25 15:06> Status: Acute <Cas Fitzpatrickgretta, Last Filed: 03/16/25 15:06> Assessment and Plan: Patient with history of CHF does not appear and exacerbation * Resume patient's sprionolactone, Entresto, and metoprolol <Cas Mcgee, - Last Filed: 03/16/25 15:06> (4) Thoracic aortic aneurysm without rupture: Qualifiers: Thoracic aorta location: ascending aorta Qualified Code(s): I71.21 - Aneurysm of the ascending aorta, without rupture <Cas PerezBib Mcgee, - Last Filed: 03/16/25 15:06> Code(s): I71.2 - Thoracic aortic aneurysm, without rupture <Cas Mcgee, - Last Filed: 03/16/25 15:06> Status: Acute <Cas Gaona Arely, Last Filed: 03/16/25 15:06> Assessment and Plan: CTA showing a 5.8 patient aware reports has been followed outpatient currently does not want any invasive surgical intervention <Cas Mcgee Last Filed: 03/16/25 15:06> (5) Obesity: Qualifiers: Body mass index: BMI 39.0-39.9 Obesity classification: adult class 2 (BMI 35 - 39.9) Obesity type: due to excess calories Serious obesity comorbidity presence: with serious comorbidity Qualified Code(s): E66.01 - Morbid (severe) obesity due to excess calories; Z68.39 - Body mass index [BMI] 39.0-39.9, adult <Cas Mcgee Last Filed: 03/16/25 15:06> Code(s): E66.9 - Obesity, unspecified <Cas Mcgee Last Filed: 03/16/25 15:06> Status: Acute <Cas Mcgee Last Filed: 03/16/25 15:06> Assessment and Plan: * Recommended heart healthy diet * Recommended to increase activity daily <Cas Mcgee Last Filed: 03/16/25 15:06> Assessment and Plan: Code status: Full code per patient DVT prophylaxis: Heparin drip Stress ulcer prophylaxis: NA PT/OT notes: PT recommends inpatient rehab at discharge for safe return to assisted living Disposition: Patient continues admission to the medical unit currently on heparin drip for extensive DVT to the right lower extremity even while on Eliquis. Patient reporting increased pain in the affected extremity today and continues to require IV analgesics. ANISH improving with IV fluids. CT abdomen/pelvis pending at time of documentation. The patient has had minimal ambulation. Patient able to ambulate with PT with the assistance of a walker. Plan to discharge to inpatient rehab at discharge with a residential goal of returning to assisted living. <Natanael Miller - Last Filed: 03/16/25 15:06> Time Spent With Patient Time with patient: 15 - 25 minutes <Cas Mcgee Last Filed: 03/16/25 15:06> Subjective Date/time seen: 03/16/25 14:45 <Cas Mcgee - Last Filed: 03/16/25 15:06> Interval history: Patient is 74-year-old male admitted for further evaluation right lower extremity swelling with venous Doppler showing extensive DVT in the right popliteal, posterior tibial, peroneal and gastrocnemius vein currently compliant on Eliquis cyst outpatient. 03/16/2025: Patient reports increased pain in the right lower extremity. Was able to ambulate with minimal to moderate assistance of pt today. Patient denies chest pain, shortness of breath and abdominal pain. Tolerating oral intake. Plan of care discussed including need for continued hospitalization for heparin drip discussed with the patient who expressed his understanding. <Natanael Miller - Last Filed: 03/16/25 15:06> Review of Systems Review of Systems: All systems reviewed & are unremarkable except as noted in HPI and below (Subjective) <Cas Mcgee Student - Last Filed: 03/16/25 15:06> Constitutional: Comments: Reports increased pain in the right lower extremity <Natanael Miller - Last Filed: 03/16/25 15:06> Exam Const: General: comfortable and no acute distress <Natanael Miller - Last Filed: 03/16/25 15:06> Other: Obese, A&O x3 <Cas Mcgee Student - Last Filed: 03/16/25 15:06> HENMT: Mouth: Yes moist mucous membranes <Natanael Miller - Last Filed: 03/16/25 15:06> Eyes: Pupils: Equal, round and reactive pupils present <Natanael Miller - Last Filed: 03/16/25 15:06> Neck: Neck: supple <Cas Mcgee - Last Filed: 03/16/25 15:06> Resp: Effort & Inspection: normal respiratory effort <Natanael Miller - Last Filed: 03/16/25 15:06> Auscultation: clear to auscultation bilaterally <Natanael Miller - Last Filed: 03/16/25 15:06> Cardio: Rate: regular rate <Natanael Miller - Last Filed: 03/16/25 15:06> Rhythm: regular rhythm <Cas Mcgee - Last Filed: 03/16/25 15:06> Peripheral pulses: posterior tibial pulses present bilateral and dorsalis pedis present (doppler right ) <Cas Mcgee - Last Filed: 03/16/25 15:06> GI: Inspection: non-distended <Cas Mcgee - Last Filed: 03/16/25 15:06> Neuro: Cranial nerves: Yes Equal, round and reactive pupils present <Cas Mcgee - Last Filed: 03/16/25 15:06> Extrem: General: no edema <Cas Mcgee - Last Filed: 03/16/25 15:06> Other: Right lower extremity tense and edematous, tender to deep palpation <Cas Mcgee Last Filed: 03/16/25 15:06> Objective Data Vital Signs Vital Signs: Vital Signs - 24 hr 03/15/25 15:20 03/15/25 16:00 03/15/25 20:00 Temperature 97.8 F 97.8 F Pulse Rate 98 92 Respiratory Rate 18 20 Blood Pressure 102/64 121/66 Pulse Oximetry 98 93 Oxygen Delivery Room Air 03/15/25 20:00 03/16/25 00:00 03/16/25 04:00 Temperature 98.7 F 97.7 F Pulse Rate 92 89 92 Respiratory Rate 20 20 20 Blood Pressure 119/77 119/72 Pulse Oximetry 93 97 100 Oxygen Delivery Room Air 03/16/25 08:00 03/16/25 09:08 03/16/25 09:09 Temperature 97.7 F Pulse Rate 80 84 Respiratory Rate 18 Blood Pressure 125/68 Pulse Oximetry 100 Oxygen Delivery Room Air <Cas Mcgee - Last Filed: 03/16/25 15:06> Intake/Output Intake/Output: Intake & Output 03/13/25 03/14/25 03/15/25 03/16/25 23:59 23:59 23:59 23:59 Intake Total 1782 710 640 Output Total 1700 350 Balance 82 360 640 <Cas Mcgee Last Filed: 03/16/25 15:06> Meds/Results Medications: Active Medications Generic Name Dose Route Start Last Admin Trade Name Phoenixq PRN Reason Stop Dose Admin Acetaminophen 650 mg 03/14/25 15:05 Acetaminophen 325 Mg Tablet PO Q6H PRN Mild Pain (1-3) or Fever Hydrocodone Bitart/Acetaminophen 1 tab 03/14/25 15:05 03/16/25 04:26 Hydrocodone/Acetaminophen (*Crx) 5-325 Mg Tablet PO 1 tab Q4H PRN Administration Pain Rated 4-6 Buspirone HCl 5 mg 03/14/25 09:00 03/16/25 09:08 Buspirone Hcl 5 Mg Tablet PO 5 mg Q12HR ANGELICA Administration Dextrose 12.5 gm 03/13/25 21:11 Dextrose 50% 25 Gm/50 Ml Syringe IV PUSH PRN PRN Hypoglycemia Protocol Empagliflozin 10 mg 03/15/25 09:00 03/16/25 09:08 Empagliflozin 10 Mg Tablet PO 10 mg DAILY ANGELICA Administration Furosemide 40 mg 03/15/25 09:00 03/16/25 09:08 Furosemide 40 Mg Tablet PO 40 mg DAILY ANGELICA Administration Glucose 15 gm 03/13/25 21:11 Glucose Oral Gel 15 Gm Of Glucse In 37.5 Gm Tube PO PRN PRN Hypoglycemia Protocol Heparin Sodium (Porcine) 7,500 units 03/15/25 18:40 Heparin Sodium 5,000 Units/Ml Vial IV PUSH PRN PRN aPTT less than 55 seconds Heparin Sodium (Porcine) 3,500 units 03/15/25 18:40 Heparin Sodium 5,000 Units/Ml Vial IV PUSH PRN PRN aPTT 55 - 70 seconds Hydromorphone HCl 1 mg 03/15/25 12:53 03/16/25 05:27 Hydromorphone Hcl Inj (*Crx) 1 Mg/Ml Syr IV PUSH 1 mg Q3H PRN Administration Pain Rated 7-10 Dextrose 1,000 mls @ 100 mls/hr 03/13/25 21:11 Dextrose 5% 1,000 Ml IVPB PRN PRN Hypoglycemia Protocol Heparin Sodium/Dextrose 25,000 units in 250 mls @ 15 mls/hr 03/15/25 18:40 03/16/25 13:20 Heparin Sodium/D5w 100 Units/Ml IV CONT 1,500 units/hr .[id number] ANGELICA 15 mls/hr Protocol Administration 1,500 UNITS/HR Insulin Aspart 2 - 5 units 03/14/25 08:00 03/16/25 12:05 Insulin Aspart (*Bkc) 100 Units/Ml SUB-Q Not Given TIDWM [facility] Protocol Insulin Aspart 1 - 2 units 03/14/25 21:00 03/15/25 22:30 Insulin Aspart (*Bkc) 100 Units/Ml SUB-Q Not Given HS ANGELICA Protocol Lansoprazole 30 mg 03/14/25 11:30 03/16/25 11:51 Lansoprazole Odt 30 Mg Tab.Rap.Dr PO 30 mg DAILY@1130 ANGELICA Administration Melatonin 5 mg 03/14/25 00:30 03/14/25 23:29 Melatonin 5 Mg Tablet PO 5 mg HS PRN Administration insomnia Metoprolol Succinate 75 mg 03/15/25 09:00 03/16/25 09:09 Metoprolol Succinate Ext Rel 25 Mg Tabcr PO 75 mg DAILY ANGELICA Administration Mirtazapine 15 mg 03/14/25 21:00 03/15/25 20:37 Mirtazapine 15 Mg Tablet PO 15 mg QHS ANGELICA Administration Multivitamins Therapeutic 1 tablet 03/15/25 09:00 03/16/25 09:08 Multivitamins Therapeutic Tab (*Bkc) PO 1 tablet DAILY ANGELICA Administration Ondansetron HCl 4 mg 03/14/25 15:05 Ondansetron Inj 4 Mg/2 Ml Vial IV PUSH Q6H PRN Nausea And Vomiting Potassium Chloride 20 meq 03/15/25 09:00 03/16/25 09:08 Potassium Chloride 20 Meq Er Tablet PO 20 meq DAILY ANGELICA Administration Rivastigmine 1 patch 03/15/25 09:00 03/16/25 09:09 Rivastigmine Tartrate 4.6 Mg Patch TRANSDERM 1 patch DAILY ANGELICA Administration Rosuvastatin Calcium 40 mg 03/14/25 09:00 03/16/25 09:08 Rosuvastatin 20 Mg Tablet PO 40 mg DAILY ANGELICA Administration Sacubitril/Valsartan 1 tablet 03/14/25 17:00 03/16/25 09:08 Sacubitril/Valsartan 49-51 Mg Tablet PO 1 tablet BID ANGELICA Administration Spironolactone 25 mg 03/15/25 09:00 03/16/25 09:08 Spironolactone 25 Mg Tablet PO 25 mg QAM ANGELICA Administration <Cas Mcgee Student - Last Filed: 03/16/25 15:06> Radiology Results: ITS Impressions Venous Doppler Study 03/13/25 17:53 IMPRESSION: 1: Extensive deep venous thrombosis of the right lower extremity. Chest CTA 03/13/25 18:57 IMPRESSION: 1. Stable fusiform ascending thoracic aortic aneurysm measuring 5.8 cm. 2: No evidence for pulmonary embolism. <Cas Mcgee Student - Last Filed: 03/16/25 15:06> Labs Labs: Laboratory Results - last 24 hr 03/15/25 03/15/25 03/15/25 17:12 21:35 21:46 WBC 11.7 H RBC 3.75 L Hgb 10.3 L Hct 32.2 L MCV 85.9 MCH 27.5 MCHC 32.0 RDW 13.7 Plt Count 310 MPV 9.1 PT 15.5 H INR 1.2 APTT 43.4 H Sodium 134 L Potassium 4.0 Chloride 107 Carbon Dioxide 17 L Anion Gap 10 BUN 19 Creatinine 1.17 Estim Creat Clear Calc 64 Estimated GFR > 60 Glucose 119 H POC Capillary Glucose 119 H 126 H Calcium 8.2 L Magnesium Iron 48 L TIBC 251 L % Saturation 19 L Ferritin 136.00 Total Bilirubin 1.4 H AST 21 ALT 13 Alkaline Phosphatase 77 Lactate Dehydrogenase 185 Total Protein 6.4 Albumin 3.5 Vitamin B12 293.0 Folate 6.9 03/16/25 03/16/25 02:56 08:50 WBC 11.6 H RBC 3.65 L Hgb 10.0 L Hct 31.4 L MCV 86.0 MCH 27.4 MCHC 31.8 L RDW 13.8 Plt Count 269 MPV 8.4 PT INR APTT 77.0 H 73.9 H Sodium 136 L Potassium 4.0 Chloride 107 Carbon Dioxide 20 L Anion Gap 9 BUN 18 Creatinine 1.16 Estim Creat Clear Calc 65 Estimated GFR > 60 Glucose 121 H POC Capillary Glucose Calcium 8.2 L Magnesium 2.0 Iron TIBC % Saturation Ferritin Total Bilirubin 1.3 AST 24 ALT 13 Alkaline Phosphatase 76 Lactate Dehydrogenase Total Protein 6.3 Albumin 3.5 Vitamin B12 Folate <Cas Mcgee Student - Last Filed: 03/16/25 15:06> Quality VTE Prophylaxis VTE prophylaxis: pharmacologic ordered <Cas Mcgee Student - Last Filed: 03/16/25 15:06> -Patient's previous records reviewed on admission -ER notes reviewed in detail on admission -discussed all findings and current treatment plan with patient/Family/POA -Consultations reviewed for recommendations -Patient's disposition for safe discharge discussed with counter caser Dictation performed by [employer] speech recognition software, therefore hospital fellow variants and typographical errors may occur. <Cas Mcgee Student - Last Filed: 03/16/25 15:06> -Patient's previous records reviewed on admission -ER notes reviewed in detail on admission -discussed all findings and current treatment plan with patient/Family/POA -Consultations reviewed for recommendations -Patient's disposition for safe discharge discussed with counter caser -radiology imaging, EKG and test results personally reviewed and interpreted unless otherwise specified Dictation performed by [employer] speech recognition software, therefore hospital fellow variants and typographical errors may occur. <Cinthya Helton, SOLUTION SALES SENIOR EXECUTIVE - Last Filed: 03/16/25 15:13> Hospitalist MIPS Advance Care Plan I have confirmed that the patient's Advanced Care Plan is present, code status is documented, or surrogate decision maker is listed in patient medical record.: Yes <Cas Mcgee Student - Last Filed: 03/16/25 15:06> Medication Reconciliation I have utilized all available resources to obtain, update and review the patients current medications (includes all prescriptions, OTC, herbals, priti abis, and nutritional supplements).: Yes <Cas Mcgee Student - Last Filed: 03/16/25 15:06> The patient is not eligible for med reconciliation; the patient is in a emergent medical situation where delaying treatment would jeopardize the patients health.: No <Cas Mcgee Student - Last Filed: 03/16/25 15:06> Attestation Supervising Provider Attestation I have personally reviewed and assessed patient agree with the following documentation <Cinthya Helton, SOLUTION SALES SENIOR EXECUTIVE - Last Filed: 03/16/25 15:13>
[2025-03-16] MEDS: oxyCODONE/ACETAMINOPHEN (*CRX) 5-325 MG TABLET 1 TABLET PO (19:56)
[2025-03-16] MEDS: SENNA/DOCUSATE SODIUM TABLET 1 TAB PO (20:26)
[2025-03-16] MEDS: MIRTAZAPINE 15 MG TABLET PO (20:26)
[2025-03-17] VITALS (9 sets, daily range): BP systolic 92–113; BP diastolic 48–68; PULSE 84–113; RESP 18–22; TEMP 36.2–37.3; O2SAT 94–100
[2025-03-17] MEDS: oxyCODONE/ACETAMINOPHEN (*CRX) 5-325 MG TABLET 1 TABLET PO ×3 (01:53→21:44)
[2025-03-17] MEDS: HEPARIN SOD/D5W 100 UNITS/ML 25,000 UNITS/250 ML BAG 15 UNITS IV CONT (05:17)
[2025-03-17 05:35] LABS: Hematocrit 31.7 % (42.0-52.0); Hemoglobin 9.5 g/dL (14.0-18.0); Mean Corpuscular HGB Conc 30.0 g/dl (32-36); Mean Corpuscular Hemoglobin 27.5 pg (26-34); Mean Corpuscular Volume 91.9 fl (80-100); Platelet Count Result 329 k/mm3 (150-375); Red Blood Count 3.45 M/mm3 (4.6-6.20); White Blood Count 14.6 K/mm3 (4.5-10.0)
[2025-03-17 05:48] LABS: Partial Thromboplastin Time 81.9 Seconds (22.3-36.8)
[2025-03-17 05:57] LABS: Alanine Aminotransferase 20 U/L (6-50); Albumin Level 3.5 g/dL (3.5-5.1); Alkaline Phosphatase 83 U/L (38-126); Anion Gap 13 mmol/L (4-12); Aspartate Amino Transferase 39 U/L (17-59); Bilirubin,Total 1.3 mg/dL (0.2-1.3); Blood Urea Nitrogen 20 mg/dL (9-20); Calcium 8.4 mg/dL (8.4-10.2); Carbon Dioxide 18 mmol/L (22-30); Chloride 107 mmol/L (98-107); Estimated CRCL calculation 65 ml/min; Estimated Glomerular Filt Rate > 60; Glucose 108 mg/dL (65-110); Magnesium 2.3 mg/dL (1.6-2.3); Potassium 3.9 mmol/L (3.4-5.0); Sodium 138 mmol/L (137-145); Total Protein 6.6 g/dL (6.3-8.2)
--- NOTE | 2025-03-17 08:44 | P.PNIM_ITS ---
Progress Note: A&P Assessment and Plan (1) DVT (deep venous thrombosis): Code(s): I82.409 - Acute embolism and thrombosis of unspecified deep veins of unspecified lower extremity Status: Acute Assessment and Plan: Venous Doppler: There is deep venous thrombosis of the right popliteal, posterior tibial, peroneal and gastrocnemius veins. The greater saphenous vein is patent. Common femoral vein is patent. Patient with previous history of PE reports he is compliant with his Eliquis * Hematology has been consulted from the emergency department and recommended initially full-dose Lovenox b.i.d. for one month at discharge plan for this when patient is discharged however due to patient's continued pain and swelling for recommended to start a Heparin drip return to continue for a few days likely then transition back to Lovenox * CT abdomen pelvis to rule out return of lymphoma ordered by hematology pending at time of documentation * Patient currently does not want surgical intervention thrombectomy/IVC filter * Would recommend outpatient hypercoagulable studies * Will discontinue patient's Eliquis at this time * Reports increased pain in the affected extremity, likely secondary to revascularization * Posterior tibial pulse weak but palpable today * If no significant improvement he will likely need evaluation by vascular o/p (2) HTN (hypertension): Qualifiers: Hypertension type: essential hypertension Qualified Code(s): I10 - Essential (primary) hypertension Code(s): I10 - Essential (primary) hypertension Status: Acute Assessment and Plan: * Resume patient's metoprolol hold today due to soft BP * Monitor BP per unit protocol (3) Congestive heart failure: Qualifiers: Heart failure chronicity: chronic Heart failure type: combined systolic and diastolic Qualified Code(s): I50.42 - Chronic combined systolic (congestive) and diastolic (congestive) heart failure Code(s): I50.9 - Heart failure, unspecified Status: Acute Assessment and Plan: Patient with history of CHF does not appear and exacerbation * Resume patient's sprionolactone, Entresto, and metoprolol * will hold patient's spironolactone, Lasix and metoprolol x1 day due to soft BP however we prefer patient to have lower BP due to his aortic aneurysm. (4) Thoracic aortic aneurysm without rupture: Qualifiers: Thoracic aorta location: ascending aorta Qualified Code(s): I71.21 - Aneurysm of the ascending aorta, without rupture Code(s): I71.2 - Thoracic aortic aneurysm, without rupture Status: Acute Assessment and Plan: CTA showing a 5.8 patient aware reports has been followed outpatient currently does not want any invasive surgical intervention (5) Obesity: Qualifiers: Body mass index: BMI 39.0-39.9 Obesity classification: adult class 2 (BMI 35 - 39.9) Obesity type: due to excess calories Serious obesity comorbidity presence: with serious comorbidity Qualified Code(s): E66.01 - Morbid (severe) obesity due to excess calories; Z68.39 - Body mass index [BMI] 39.0-39.9, adult Code(s): E66.9 - Obesity, unspecified Status: Acute Assessment and Plan: * Recommended heart healthy diet * Recommended to increase activity daily (6) Cardiomyopathy: Code(s): I42.9 - Cardiomyopathy, unspecified Status: Acute Assessment and Plan: patient with history of cardiomyopathy severe systolic dysfunction with LVEF of 2024 from echo in 2021 however follow-up echocardiogram in 2022 showed an LVEF of 50-55% * continued patient's Entresto morning dose but will hold night dose * holding metoprolol for today due to soft BP Plan Code status: Full code per patient DVT prophylaxis: Heparin drip Stress ulcer prophylaxis: NA PT/OT notes: PT recommends inpatient rehab at discharge for safe return to assisted living Disposition: Patient continues admission to the medical unit currently on heparin drip for extensive DVT to the right lower extremity even while on Eliquis. Patient reporting increased pain in the affected extremity today and continues to require IV analgesics. ANISH improving with IV fluids. CT abdomen/pelvis pending at time of documentation. The patient has had minimal ambulation. Patient able to ambulate with PT with the assistance of a walker. Plan to discharge to inpatient rehab at discharge with a oil heaterman goal of returning to assisted living. Time Spent With Patient Time with patient: 25 - 35 minutes Subjective Date/time seen: 03/17/25 08:44 Interval history: Patient is 74-year-old male admitted for further evaluation right lower extremity swelling with venous Doppler showing extensive DVT in the right popliteal, posterior tibial, peroneal and gastrocnemius vein currently compliant on Eliquis cyst outpatient. 03/17/2025: Patient still reporting moderate to severe pain to RLE minimal improvement to swelling. Patient also reporting heartburn. Review of Systems Review of Systems: All systems reviewed & are unremarkable except as noted in HPI and below (Subjective) Exam Const: General: comfortable and no acute distress Other: Obese, A&O x3 HENMT: Mouth: Yes moist mucous membranes Eyes: Pupils: Equal, round and reactive pupils present Neck: Neck: supple Resp: Effort & Inspection: normal respiratory effort Auscultation: clear to auscultation bilaterally Cardio: Rate: regular rate Rhythm: regular rhythm GI: Inspection: non-distended Neuro: Cranial nerves: Yes Equal, round and reactive pupils present Extrem: General: no edema Other: Right lower extremity tense and edematous, tender to deep palpation Objective Data Vital Signs Vital Signs: Vital Signs - 24 hr 03/16/25 09:08 03/16/25 09:09 03/16/25 12:00 Temperature 97.3 F L Pulse Rate 84 102 H Respiratory Rate 18 Blood Pressure 122/72 Pulse Oximetry 100 Oxygen Delivery Room Air 03/16/25 19:00 03/16/25 20:00 03/16/25 20:00 Temperature 98.4 F 98 F Pulse Rate 93 99 Respiratory Rate 18 26 H Blood Pressure 102/82 123/61 Pulse Oximetry 97 98 Oxygen Delivery Room Air 03/17/25 00:00 03/17/25 05:12 03/17/25 06:50 Temperature 98.4 F 97.2 F L Pulse Rate 84 92 86 Respiratory Rate 22 H 18 Blood Pressure 105/58 L 113/66 106/61 Pulse Oximetry 96 100 100 Oxygen Delivery 03/17/25 08:00 Temperature 97.1 F L Pulse Rate 86 Respiratory Rate 20 Blood Pressure 100/60 Pulse Oximetry 96 Oxygen Delivery Intake/Output Intake/Output: Intake & Output 03/14/25 03/15/25 03/16/25 03/17/25 23:59 23:59 23:59 23:59 Intake Total 2010 227 6242 639.3 Output Total 1700 350 100 500 Balance 82 360 1020 139.3 Meds/Results Medications: Active Medications Generic Name Dose Route Start Last Admin Trade Name Freq PRN Reason Stop Dose Admin Acetaminophen 650 mg 03/14/25 15:05 Acetaminophen 325 Mg Tablet PO Q6H PRN Mild Pain (1-3) or Fever Buspirone HCl 5 mg 03/14/25 09:00 03/16/25 20:26 Buspirone Hcl 5 Mg Tablet PO 5 mg Q12HR ANGELICA Administration Dextrose 12.5 gm 03/13/25 21:11 Dextrose 50% 25 Gm/50 Ml Syringe IV PUSH PRN PRN Hypoglycemia Protocol Empagliflozin 10 mg 03/15/25 09:00 03/16/25 09:08 Empagliflozin 10 Mg Tablet PO 10 mg DAILY ANGELICA Administration Furosemide 40 mg 03/15/25 09:00 03/16/25 09:08 Furosemide 40 Mg Tablet PO 40 mg DAILY ANGELICA Administration Glucose 15 gm 03/13/25 21:11 Glucose Oral Gel 15 Gm Of Glucse In 37.5 Gm Tube PO PRN PRN Hypoglycemia Protocol Heparin Sodium (Porcine) 7,500 units 03/15/25 18:40 Heparin Sodium 5,000 Units/Ml Vial IV PUSH PRN PRN aPTT less than 55 seconds Heparin Sodium (Porcine) 3,500 units 03/15/25 18:40 Heparin Sodium 5,000 Units/Ml Vial IV PUSH PRN PRN aPTT 55 - 70 seconds Hydromorphone HCl 1 mg 03/15/25 12:53 03/16/25 15:19 Hydromorphone Hcl Inj (*Crx) 1 Mg/Ml Syr IV PUSH 1 mg Q3H PRN Administration Pain Rated 7-10 Dextrose 1,000 mls @ 100 mls/hr 03/13/25 21:11 Dextrose 5% 1,000 Ml IVPB PRN PRN Hypoglycemia Protocol Heparin Sodium/Dextrose 25,000 units in 250 mls @ 15 mls/hr 03/15/25 18:40 03/17/25 05:17 Heparin Sodium/D5w 100 Units/Ml IV CONT 1,500 units/hr .[id number] ANGELICA 15 mls/hr Protocol Administration 1,500 UNITS/HR Insulin Aspart 2 - 5 units 03/14/25 08:00 03/16/25 17:27 Insulin Aspart (*Bkc) 100 Units/Ml SUB-Q Not Given TIDWM [facility] Protocol Insulin Aspart 1 - 2 units 03/14/25 21:00 03/16/25 22:12 Insulin Aspart (*Bkc) 100 Units/Ml SUB-Q Not Given HS [facility] Protocol Lansoprazole 30 mg 03/14/25 11:30 03/16/25 11:51 Lansoprazole Odt 30 Mg Tab.Rap.Dr PO 30 mg DAILY@1130 ANGELICA Administration Melatonin 5 mg 03/14/25 00:30 03/14/25 23:29 Melatonin 5 Mg Tablet PO 5 mg HS PRN Administration insomnia Metoprolol Succinate 75 mg 03/15/25 09:00 03/16/25 09:09 Metoprolol Succinate Ext Rel 25 Mg Tabcr PO 75 mg DAILY ANGELICA Administration Mirtazapine 15 mg 03/14/25 21:00 03/16/25 20:26 Mirtazapine 15 Mg Tablet PO 15 mg QHS ANGELICA Administration Multivitamins Therapeutic 1 tablet 03/15/25 09:00 03/16/25 09:08 Multivitamins Therapeutic Tab (*Bkc) PO 1 tablet DAILY ANGELICA Administration Ondansetron HCl 4 mg 03/14/25 15:05 Ondansetron Inj 4 Mg/2 Ml Vial IV PUSH Q6H PRN Nausea And Vomiting Oxycodone/Acetaminophen 1 tablet 03/17/25 08:00 03/17/25 07:37 Oxycodone/Acetaminophen (*Crx) 5-325 Mg Tablet PO 1 tablet Q6H ANGELICA Administration Polyethylene Glycol 17 gm 03/17/25 09:00 Polyethylene Glycol 3350 17 Gm Powd.Pack PO QAM ANGELICA Potassium Chloride 20 meq 03/15/25 09:00 03/16/25 09:08 Potassium Chloride 20 Meq Er Tablet PO 20 meq DAILY ANGELICA Administration Rivastigmine 1 patch 03/15/25 09:00 03/16/25 09:09 Rivastigmine Tartrate 4.6 Mg Patch TRANSDERM 1 patch DAILY ANGELICA Administration Rosuvastatin Calcium 40 mg 03/14/25 09:00 03/16/25 09:08 Rosuvastatin 20 Mg Tablet PO 40 mg DAILY ANGELICA Administration Sacubitril/Valsartan 1 tablet 03/14/25 17:00 03/16/25 17:30 Sacubitril/Valsartan 49-51 Mg Tablet PO 1 tablet BID ANGELICA Administration Senna/Docusate Sodium 1 tab 03/16/25 21:00 03/16/25 20:26 Senna/Docusate Sodium Tablet PO 1 tab HS ANGELICA Administration Spironolactone 25 mg 03/15/25 09:00 03/16/25 09:08 Spironolactone 25 Mg Tablet PO 25 mg QAM ANGELICA Administration Radiology Results: ITS Impressions Venous Doppler Study 03/13/25 17:53 IMPRESSION: 1: Extensive deep venous thrombosis of the right lower extremity. Chest CTA 03/13/25 18:57 IMPRESSION: 1. Stable fusiform ascending thoracic aortic aneurysm measuring 5.8 cm. 2: No evidence for pulmonary embolism. Labs Labs: Laboratory Results - last 24 hr 03/16/25 03/16/25 03/16/25 08:50 15:15 16:50 WBC RBC Hgb Hct MCV MCH MCHC RDW Plt Count MPV APTT 73.9 H Sodium Potassium Chloride Carbon Dioxide Anion Gap BUN Creatinine Estim Creat Clear Calc Estimated GFR Glucose POC Capillary Glucose 105 116 H Calcium Magnesium Total Bilirubin AST ALT Alkaline Phosphatase Total Protein Albumin 03/16/25 03/17/25 03/17/25 20:34 05:24 07:50 WBC 14.6 H RBC 3.45 L Hgb 9.5 L Hct 31.7 L MCV 91.9 D MCH 27.5 MCHC 30.0 L RDW 14.0 Plt Count 329 MPV 9.1 APTT 81.9 H Sodium 138 Potassium 3.9 Chloride 107 Carbon Dioxide 18 L Anion Gap 13 H BUN 20 Creatinine 1.16 Estim Creat Clear Calc 65 Estimated GFR > 60 Glucose 108 POC Capillary Glucose 134 H 101 Calcium 8.4 Magnesium 2.3 Total Bilirubin 1.3 AST 39 ALT 20 Alkaline Phosphatase 83 Total Protein 6.6 Albumin 3.5 Quality VTE Prophylaxis VTE prophylaxis: pharmacologic ordered -Patient's previous records reviewed on admission -ER notes reviewed in detail on admission -discussed all findings and current treatment plan with patient/Family/POA -Consultations reviewed for recommendations -Patient's disposition for safe discharge discussed with disease case manager rn -radiology imaging, EKG and test results personally reviewed and interpreted unless otherwise specified Dictation performed by [employer] direct speech recognition software, therefore medical transcription editor variants and typographical errors may occur. Hospitalist MIPS Advance Care Plan I have confirmed that the patient's Advanced Care Plan is present, code status is documented, or surrogate decision maker is listed in patient medical record.: Yes Medication Reconciliation I have utilized all available resources to obtain, update and review the patients current medications (includes all prescriptions, OTC, herbals, cannabis, and nutritional supplements).: Yes The patient is not eligible for med reconciliation; the patient is in a emergent medical situation where delaying treatment would jeopardize the patients health.: No
[2025-03-17] MEDS: RIVASTIGMINE TARTRATE 4.6 MG PATCH 1 PATCH TRANSDERM (09:57)
[2025-03-17] MEDS: MULTIVITAMINS THERAPEUTIC TAB (*BKC) 1 TABLET PO (09:57)
[2025-03-17] MEDS: POTASSIUM CHLORIDE 20 MEQ ER TABLET PO (09:57)
[2025-03-17] MEDS: SACUBITRIL/VALSARTAN 49-51 MG TABLET 1 TABLET PO (09:57)
[2025-03-17] MEDS: ROSUVASTATIN 20 MG TABLET 40 MG PO (09:57)
[2025-03-17] MEDS: EMPAGLIFLOZIN 10 MG TABLET PO (09:57)
[2025-03-17] MEDS: LANSOPRAZOLE ODT 30 MG TAB.RAP.DR PO (12:16)
[2025-03-17] MEDS: PANTOPRAZOLE 40 MG TABLET PO (14:47)
[2025-03-17] MEDS: HYDROmorphone HCL INJ (*CRX) 1 MG/ML SYR IV PUSH (15:35)
--- NOTE | 2025-03-17 20:18 | PC.NURSE ---
Patient off unit to get Ct scan.
[2025-03-17] MEDS: MIRTAZAPINE 15 MG TABLET PO (21:32)
[2025-03-17] MEDS: MELATONIN 5 MG TABLET PO (21:32)
[2025-03-17] MEDS: SENNA/DOCUSATE SODIUM TABLET 1 TAB PO (21:33)
[2025-03-18] VITALS (7 sets, daily range): BP systolic 94–108; BP diastolic 51–64; PULSE 87–105; RESP 16–20; TEMP 36.2–37.1; O2SAT 94–99
[2025-03-18] MEDS: HEPARIN SOD/D5W 100 UNITS/ML 25,000 UNITS/250 ML BAG 15 UNITS IV CONT ×2 (01:52→18:29)
[2025-03-18] MEDS: oxyCODONE/ACETAMINOPHEN (*CRX) 5-325 MG TABLET 1 TABLET PO ×4 (01:54→20:24)
--- NOTE | 2025-03-18 05:11 | PC.NURSE ---
Patient returned to room from CT scan @ 2100, call light within reach, bed in lowest position and fall precaution alarm set on bed.
[2025-03-18 06:41] LABS: Hematocrit 28.3 % (42.0-52.0); Hemoglobin 8.8 g/dL (14.0-18.0); Mean Corpuscular HGB Conc 31.1 g/dl (32-36); Mean Corpuscular Hemoglobin 27.6 pg (26-34); Mean Corpuscular Volume 88.7 fl (80-100); Platelet Count Result 315 k/mm3 (150-375); Red Blood Count 3.19 M/mm3 (4.6-6.20); White Blood Count 12.0 K/mm3 (4.5-10.0)
[2025-03-18 06:50] LABS: Partial Thromboplastin Time 95.0 Seconds (22.3-36.8)
[2025-03-18 07:03] LABS: Alanine Aminotransferase 27 U/L (6-50); Albumin Level 3.4 g/dL (3.5-5.1); Alkaline Phosphatase 83 U/L (38-126); Anion Gap 12 mmol/L (4-12); Aspartate Amino Transferase 88 U/L (17-59); Bilirubin,Total 1.2 mg/dL (0.2-1.3); Blood Urea Nitrogen 22 mg/dL (9-20); Calcium 8.1 mg/dL (8.4-10.2); Carbon Dioxide 19 mmol/L (22-30); Chloride 106 mmol/L (98-107); Estimated CRCL calculation 60 ml/min; Estimated Glomerular Filt Rate 56; Glucose 108 mg/dL (65-110); Magnesium 2.4 mg/dL (1.6-2.3); Potassium 3.7 mmol/L (3.4-5.0); Sodium 137 mmol/L (137-145); Total Protein 6.3 g/dL (6.3-8.2)
[2025-03-18] MEDS: EMPAGLIFLOZIN 10 MG TABLET PO (08:04)
[2025-03-18] MEDS: POTASSIUM CHLORIDE 20 MEQ ER TABLET PO (08:04)
[2025-03-18] MEDS: MULTIVITAMINS THERAPEUTIC TAB (*BKC) 1 TABLET PO (08:04)
[2025-03-18] MEDS: ROSUVASTATIN 20 MG TABLET 40 MG PO (08:04)
[2025-03-18] MEDS: PANTOPRAZOLE 40 MG TABLET PO (08:04)
[2025-03-18] MEDS: RIVASTIGMINE TARTRATE 4.6 MG PATCH 1 PATCH TRANSDERM (08:08)
--- NOTE | 2025-03-18 09:31 | P.PNIM_ITS ---
Progress Note: A&P Assessment and Plan (1) DVT (deep venous thrombosis): Code(s): I82.409 - Acute embolism and thrombosis of unspecified deep veins of unspecified lower extremity Status: Acute Assessment and Plan: Venous Doppler: There is deep venous thrombosis of the right popliteal, posterior tibial, peroneal and gastrocnemius veins. The greater saphenous vein is patent. Common femoral vein is patent. Patient with previous history of PE reports he is compliant with his Eliquis * Hematology has been consulted from the emergency department and recommended initially full-dose Lovenox b.i.d. for one month at discharge plan for this when patient is discharged however due to patient's continued pain and swelling for recommended to start a Heparin drip return to continue for a few days likely then transition back to Lovenox * CT abdomen pelvis to rule out return of lymphoma ordered by hematology pending at time of documentation * Patient currently does not want surgical intervention thrombectomy/IVC filter * Would recommend outpatient hypercoagulable studies * Will discontinue patient's Eliquis at this time * Reports increased pain in the affected extremity, likely secondary to revascularization * Posterior tibial pulse weak but palpable today * If no significant improvement he will likely need evaluation by vascular o/p but family and patient concerned with risks (2) HTN (hypertension): Qualifiers: Hypertension type: essential hypertension Qualified Code(s): I10 - Essential (primary) hypertension Code(s): I10 - Essential (primary) hypertension Status: Acute Assessment and Plan: * Resume patient's metoprolol hold today due to soft BP * Monitor BP per unit protocol (3) Congestive heart failure: Qualifiers: Heart failure chronicity: chronic Heart failure type: combined systolic and diastolic Qualified Code(s): I50.42 - Chronic combined systolic (congestive) and diastolic (congestive) heart failure Code(s): I50.9 - Heart failure, unspecified Status: Acute Assessment and Plan: Patient with history of CHF does not appear and exacerbation * Resume patient's sprionolactone, Entresto, and metoprolol * will hold patient's spironolactone, Lasix and metoprolol due to soft BP however we prefer patient to have lower BP due to his aortic aneurysm. (4) Thoracic aortic aneurysm without rupture: Qualifiers: Thoracic aorta location: ascending aorta Qualified Code(s): I71.21 - Aneurysm of the ascending aorta, without rupture Code(s): I71.2 - Thoracic aortic aneurysm, without rupture Status: Acute Assessment and Plan: CTA showing a 5.8 patient aware reports has been followed outpatient currently does not want any invasive surgical intervention (5) Obesity: Qualifiers: Body mass index: BMI 39.0-39.9 Obesity classification: adult class 2 (BMI 35 - 39.9) Obesity type: due to excess calories Serious obesity comorbidity presence: with serious comorbidity Qualified Code(s): E66.01 - Morbid (severe) obesity due to excess calories; Z68.39 - Body mass index [BMI] 39.0-39.9, adult Code(s): E66.9 - Obesity, unspecified Status: Acute Assessment and Plan: * Recommended heart healthy diet * Recommended to increase activity daily (6) Cardiomyopathy: Code(s): I42.9 - Cardiomyopathy, unspecified Status: Acute Assessment and Plan: patient with history of cardiomyopathy severe systolic dysfunction with LVEF of 2024 from echo in 2021 however follow-up echocardiogram in 2022 showed an LVEF of 50-55% * held entresto resume tomorrow if BP allows * holding metoprolol for today due to soft BP (7) JONAH (obstructive sleep apnea): Code(s): G47.33 - Obstructive sleep apnea (adult) (pediatric) Status: Acute Assessment and Plan: Patient with history of JONAH * ordered CPAP when sleeping Plan Code status: Full code per patient DVT prophylaxis: Heparin drip Stress ulcer prophylaxis: NA PT/OT notes: PT recommends inpatient rehab at discharge for safe return to assisted living Disposition: Patient continues admission to the medical unit currently on heparin drip for extensive DVT to the right lower extremity even while on Eliquis. Patient reporting increased pain in the affected extremity today and continues to require IV analgesics. ANISH improving with IV fluids. CT abdomen/pelvis pending at time of documentation. The patient has had minimal ambulation. Patient able to ambulate with PT with the assistance of a walker. Plan to discharge to inpatient rehab at discharge with a director talent management goal of returning to assisted living. Time Spent With Patient Time with patient: 25 - 35 minutes Subjective Date/time seen: 03/18/25 09:31 Interval history: Patient is 74-year-old male admitted for further evaluation right lower extremity swelling with venous Doppler showing extensive DVT in the right popliteal, posterior tibial, peroneal and gastrocnemius vein currently compliant on Eliquis cyst outpatient. 03/18/2025: Patient with little improvement but pain mildly improved. Daughter at beside and updated. Patient with no new complaints today. Review of Systems Review of Systems: All systems reviewed & are unremarkable except as noted in HPI and below (Subjective) Exam Const: General: comfortable and no acute distress Other: Obese, A&O x3 HENMT: Mouth: Yes moist mucous membranes Eyes: Pupils: Equal, round and reactive pupils present Neck: Neck: supple Resp: Effort & Inspection: normal respiratory effort Auscultation: clear to auscultation bilaterally Cardio: Rate: regular rate Rhythm: regular rhythm GI: Inspection: non-distended Neuro: Cranial nerves: Yes Equal, round and reactive pupils present Extrem: General: no edema Other: Right lower extremity tense and edematous, tender to deep palpation Objective Data Vital Signs Vital Signs: Vital Signs - 24 hr 03/17/25 09:42 03/17/25 12:00 03/17/25 16:00 Temperature 98.1 F 97.9 F Pulse Rate 94 113 H Respiratory Rate 20 20 Blood Pressure 98/48 L 98/68 L 96/58 L Pulse Oximetry 99 97 Oxygen Delivery Oxygen Flow Rate 03/17/25 21:33 03/17/25 22:58 03/18/25 00:00 Temperature 99.2 F 98.4 F Pulse Rate 96 93 Respiratory Rate 18 20 Blood Pressure 92/59 L 94/51 L Pulse Oximetry 94 100 94 Oxygen Delivery Nasal Cannula Oxygen Flow Rate 2 03/18/25 04:00 03/18/25 08:00 Temperature 97.9 F 97.2 F L Pulse Rate 87 88 Respiratory Rate 18 18 Blood Pressure 99/57 L 100/64 Pulse Oximetry 95 96 Oxygen Delivery Oxygen Flow Rate Intake/Output Intake/Output: Intake & Output 03/15/25 03/16/25 03/17/25 03/18/25 23:59 23:59 23:59 23:59 Intake Total 710 1120 1323.3 333 Output Total 871 327 9178 200 Balance 360 1020 323.3 133 Meds/Results Medications: Active Medications Generic Name Dose Route Start Last Admin Trade Name Freq PRN Reason Stop Dose Admin Acetaminophen 650 mg 03/14/25 15:05 Acetaminophen 325 Mg Tablet PO Q6H PRN Mild Pain (1-3) or Fever Buspirone HCl 5 mg 03/14/25 09:00 03/18/25 08:04 Buspirone Hcl 5 Mg Tablet PO 5 mg Q12HR ANGELICA Administration Calcium Carbonate 200 mg 03/17/25 13:35 Calcium Carbonate (Tums) 500 Mg (200 Mg Elemental) PO Q6H PRN Indigestion Dextrose 12.5 gm 03/13/25 21:11 Dextrose 50% 25 Gm/50 Ml Syringe IV PUSH PRN PRN Hypoglycemia Protocol Empagliflozin 10 mg 03/15/25 09:00 03/18/25 08:04 Empagliflozin 10 Mg Tablet PO 10 mg DAILY ANGELICA Administration Furosemide 40 mg 03/15/25 09:00 03/17/25 09:58 Furosemide 40 Mg Tablet PO Not Given On Hold: 03/17/25 09:41 DAILY ANGELICA Glucose 15 gm 03/13/25 21:11 Glucose Oral Gel 15 Gm Of Glucse In 37.5 Gm Tube PO PRN PRN Hypoglycemia Protocol Heparin Sodium (Porcine) 7,500 units 03/15/25 18:40 Heparin Sodium 5,000 Units/Ml Vial IV PUSH PRN PRN aPTT less than 55 seconds Heparin Sodium (Porcine) 3,500 units 03/15/25 18:40 Heparin Sodium 5,000 Units/Ml Vial IV PUSH PRN PRN aPTT 55 - 70 seconds Hydromorphone HCl 1 mg 03/15/25 12:53 03/17/25 15:35 Hydromorphone Hcl Inj (*Crx) 1 Mg/Ml Syr IV PUSH 1 mg Q3H PRN Administration Pain Rated 7-10 Dextrose 1,000 mls @ 100 mls/hr 03/13/25 21:11 Dextrose 5% 1,000 Ml IVPB PRN PRN Hypoglycemia Protocol Heparin Sodium/Dextrose 25,000 units in 250 mls @ 15 mls/hr 03/15/25 18:40 03/18/25 07:24 Heparin Sodium/D5w 100 Units/Ml IV CONT 1,500 units/hr .[id number] ANGELICA 15 mls/hr Protocol Titration 1,500 UNITS/HR Insulin Aspart 2 - 5 units 03/14/25 08:00 03/18/25 08:02 Insulin Aspart (*Bkc) 100 Units/Ml SUB-Q Not Given [facility] Protocol Insulin Aspart 1 - 2 units 03/14/25 21:00 03/17/25 21:33 Insulin Aspart (*Bkc) 100 Units/Ml SUB-Q Not Given HS ANGELICA Protocol Lansoprazole 30 mg 03/14/25 11:30 03/17/25 12:16 Lansoprazole Odt 30 Mg Tab.Rap.Dr PO 30 mg DAILY@1130 ANGELICA Administration Melatonin 5 mg 03/14/25 00:30 03/17/25 21:32 Melatonin 5 Mg Tablet PO 5 mg HS PRN Administration insomnia Metoprolol Succinate 75 mg 03/15/25 09:00 03/17/25 09:58 Metoprolol Succinate Ext Rel 25 Mg Tabcr PO Not Given On Hold: 03/17/25 09:42 DAILY ANGELICA Mirtazapine 15 mg 03/14/25 21:00 03/17/25 21:32 Mirtazapine 15 Mg Tablet PO 15 mg QHS ANGELICA Administration Multivitamins Therapeutic 1 tablet 03/15/25 09:00 03/18/25 08:04 Multivitamins Therapeutic Tab (*Bkc) PO 1 tablet DAILY ANGELICA Administration Ondansetron HCl 4 mg 03/14/25 15:05 Ondansetron Inj 4 Mg/2 Ml Vial IV PUSH Q6H PRN Nausea And Vomiting Oxycodone/Acetaminophen 1 tablet 03/17/25 08:00 03/18/25 08:04 Oxycodone/Acetaminophen (*Crx) 5-325 Mg Tablet PO 1 tablet Q6H ANGELICA Administration Pantoprazole Sodium 40 mg 03/17/25 13:35 03/18/25 08:04 Pantoprazole 40 Mg Tablet PO 40 mg QAM ANGELICA Administration Polyethylene Glycol 17 gm 03/17/25 09:00 03/18/25 08:04 Polyethylene Glycol 3350 17 Gm Powd.Pack PO 17 gm QAM ANGELICA Administration Potassium Chloride 20 meq 03/15/25 09:00 03/18/25 08:04 Potassium Chloride 20 Meq Er Tablet PO 20 meq DAILY ANGELICA Administration Rivastigmine 1 patch 03/15/25 09:00 03/18/25 08:08 Rivastigmine Tartrate 4.6 Mg Patch TRANSDERM 1 patch DAILY ANGELICA Administration Rosuvastatin Calcium 40 mg 03/14/25 09:00 03/18/25 08:04 Rosuvastatin 20 Mg Tablet PO 40 mg DAILY ANGELICA Administration Sacubitril/Valsartan 1 tablet 03/14/25 17:00 03/17/25 09:57 Sacubitril/Valsartan 49-51 Mg Tablet PO 1 tablet On Hold: 03/17/25 13:34 BID ANGELICA Administration Senna/Docusate Sodium 1 tab 03/16/25 21:00 03/17/25 21:33 Senna/Docusate Sodium Tablet PO 1 tab HS ANGELICA Administration Spironolactone 25 mg 03/15/25 09:00 03/17/25 09:58 Spironolactone 25 Mg Tablet PO Not Given On Hold: 03/17/25 09:41 [id number] [place] [facility] [place]: ITS Impressions Venous Doppler Study 03/13/25 17:53 IMPRESSION: 1: Extensive deep venous thrombosis of the right lower extremity. Chest CTA 03/13/25 18:57 IMPRESSION: 1. Stable fusiform ascending thoracic aortic aneurysm measuring 5.8 cm. 2: No evidence for pulmonary embolism. Abdomen/Pelvis CT 03/18/25 08:37 IMPRESSION: 1. No evidence of lymphoma. 2. 3.0 cm right kidney mass, most likely a hemorrhagic cyst. Neoplasm is not excluded. Abdomen CT without and with contrast is recommended. 3. Right inguinal hernia containing nonobstructed sigmoid colon and the appendix. Labs Labs: Laboratory Results - last 24 hr 03/17/25 03/17/25 03/17/25 11:24 17:31 20:13 WBC RBC Hgb Hct MCV MCH MCHC RDW Plt Count MPV APTT Sodium Potassium Chloride Carbon Dioxide Anion Gap BUN Creatinine Estim Creat Clear Calc Estimated GFR Glucose POC Capillary Glucose 98 122 H 109 H Calcium Magnesium Total Bilirubin AST ALT Alkaline Phosphatase Total Protein Albumin 03/18/25 03/18/25 06:23 07:59 WBC 12.0 H RBC 3.19 L Hgb 8.8 L Hct 28.3 L MCV 88.7 MCH 27.6 MCHC 31.1 L RDW 14.3 Plt Count 315 MPV 9.1 APTT 95.0 H Sodium 137 Potassium 3.7 Chloride 106 Carbon Dioxide 19 L Anion Gap 12 BUN 22 H Creatinine 1.25 Estim Creat Clear Calc 60 Estimated GFR 56 L Glucose 108 POC Capillary Glucose 121 H Calcium 8.1 L Magnesium 2.4 H Total Bilirubin 1.2 AST 88 H ALT 27 Alkaline Phosphatase 83 Total Protein 6.3 Albumin 3.4 L Quality VTE Prophylaxis VTE prophylaxis: pharmacologic ordered -Patient's previous records reviewed on admission -ER notes reviewed in detail on admission -discussed all findings and current treatment plan with patient/Family/POA -Consultations reviewed for recommendations -Patient's disposition for safe discharge discussed with oil field caser -radiology imaging, EKG and test results I have personally reviewed and interpreted unless otherwise specified Dictation performed by [employer] direct speech recognition software, therefore test engineering manager variants and typographical errors may occur. Hospitalist MIPS Advance Care Plan I have confirmed that the patient's Advanced Care Plan is present, code status is documented, or surrogate decision maker is listed in patient medical record.: Yes Medication Reconciliation I have utilized all available resources to obtain, update and review the patients current medications (includes all prescriptions, OTC, herbals, cannabis, and nutritional supplements).: Yes The patient is not eligible for med reconciliation; the patient is in a emergent medical situation where delaying treatment would jeopardize the patients health.: No
[2025-03-18] MEDS: MIRTAZAPINE 15 MG TABLET PO (20:24)
[2025-03-18] MEDS: SENNA/DOCUSATE SODIUM TABLET 1 TAB PO (20:25)
[2025-03-18] MEDS: HYDROmorphone HCL INJ (*CRX) 1 MG/ML SYR IV PUSH (21:22)
[2025-03-19] VITALS (8 sets, daily range): BP systolic 107–136; BP diastolic 55–88; PULSE 66–100; RESP 16–24; TEMP 35.9–36.4; O2SAT 90–96
[2025-03-19] MEDS: oxyCODONE/ACETAMINOPHEN (*CRX) 5-325 MG TABLET 1 TABLET PO ×4 (00:59→20:38)
--- NOTE | 2025-03-19 04:55 | PC.NURSE ---
pt refused to wear Cpap tonight after several attempts by RT and nurse educated on the importance of CPAP continued to refuse.
[2025-03-19 06:37] LABS: Hematocrit 27.1 % (42.0-52.0); Hemoglobin 8.2 g/dL (14.0-18.0); Mean Corpuscular HGB Conc 30.3 g/dl (32-36); Mean Corpuscular Hemoglobin 26.8 pg (26-34); Mean Corpuscular Volume 88.6 fl (80-100); Platelet Count Result 358 k/mm3 (150-375); Red Blood Count 3.06 M/mm3 (4.6-6.20); White Blood Count 11.2 K/mm3 (4.5-10.0)
[2025-03-19 06:47] LABS: Partial Thromboplastin Time 85.8 Seconds (22.3-36.8)
[2025-03-19 07:08] LABS: Alanine Aminotransferase 41 U/L (6-50); Albumin Level 3.2 g/dL (3.5-5.1); Alkaline Phosphatase 98 U/L (38-126); Anion Gap 10 mmol/L (4-12); Aspartate Amino Transferase 110 U/L (17-59); Bilirubin,Total 1.1 mg/dL (0.2-1.3); Blood Urea Nitrogen 22 mg/dL (9-20); Calcium 8.1 mg/dL (8.4-10.2); Carbon Dioxide 20 mmol/L (22-30); Chloride 106 mmol/L (98-107); Estimated CRCL calculation 59 ml/min; Estimated Glomerular Filt Rate 55; Glucose 113 mg/dL (65-110); Magnesium 2.5 mg/dL (1.6-2.3); Potassium 3.7 mmol/L (3.4-5.0); Sodium 136 mmol/L (137-145); Total Protein 6.2 g/dL (6.3-8.2)
--- NOTE | 2025-03-19 08:21 | PCPTNOTE ---
Attempted to see patient for PT, however patient declined. Patient was sleeping prior to PT entering room and patient reported he was not ready to wake up yet.
[2025-03-19] MEDS: SPIRONOLACTONE 25 MG TABLET PO (08:51)
[2025-03-19] MEDS: METOPROLOL SUCCINATE EXT REL 25 MG TABCR PO (08:51)
[2025-03-19] MEDS: MULTIVITAMINS THERAPEUTIC TAB (*BKC) 1 TABLET PO (08:52)
[2025-03-19] MEDS: ROSUVASTATIN 20 MG TABLET 40 MG PO (08:52)
[2025-03-19] MEDS: PANTOPRAZOLE 40 MG TABLET PO (08:52)
[2025-03-19] MEDS: RIVASTIGMINE TARTRATE 4.6 MG PATCH 1 PATCH TRANSDERM (08:52)
[2025-03-19] MEDS: POTASSIUM CHLORIDE 20 MEQ ER TABLET PO (08:52)
[2025-03-19] MEDS: EMPAGLIFLOZIN 10 MG TABLET PO (08:52)
[2025-03-19] MEDS: SACUBITRIL/VALSARTAN 12-13 MG TABLET 1 TAB PO ×2 (09:11→20:38)
--- NOTE | 2025-03-19 10:22 | P.PNIM_ITS ---
Progress Note: A&P Assessment and Plan (1) DVT (deep venous thrombosis): Code(s): I82.409 - Acute embolism and thrombosis of unspecified deep veins of unspecified lower extremity Status: Acute Assessment and Plan: Venous Doppler: There is deep venous thrombosis of the right popliteal, posterior tibial, peroneal and gastrocnemius veins. The greater saphenous vein is patent. Common femoral vein is patent. Patient with previous history of PE reports he is compliant with his Eliquis. spoken with Dr. Goff with vascular at [facility] and recommend at this time to repeat venous doppler and continue Hep gtt but no intervention indicated unless occlusion above the knee typically femoral or iliac * Hematology has been consulted from the emergency department and recommended initially full-dose Lovenox b.i.d. for one month at discharge plan for this when patient is discharged however due to patient's continued pain and swelling for recommended to start a Heparin drip return to continue for a few days likely then transition back to Lovenox * CT abdomen pelvis to rule out return of lymphoma ordered by hematology pending at time of documentation * Patient currently does not want surgical intervention thrombectomy/IVC filter * Would recommend outpatient hypercoagulable studies * Will discontinue patient's Eliquis at this time * Reports increased pain in the affected extremity, likely secondary to revascularization * Posterior tibial pulse weak but palpable today * repeat venous doppler (2) HTN (hypertension): Qualifiers: Hypertension type: essential hypertension Qualified Code(s): I10 - Essential (primary) hypertension Code(s): I10 - Essential (primary) hypertension Status: Acute Assessment and Plan: * Resume patient's metoprolol at lower dose 25mg daily * Monitor BP per unit protocol (3) Congestive heart failure: Qualifiers: Heart failure chronicity: chronic Heart failure type: combined systolic and diastolic Qualified Code(s): I50.42 - Chronic combined systolic (congestive) and diastolic (congestive) heart failure Code(s): I50.9 - Heart failure, unspecified Status: Acute Assessment and Plan: Patient with history of CHF does not appear and exacerbation * changed patient's Entresto to low dose and metoprolol to 25mg XL * resumed spironolactone holding Lasix (4) Thoracic aortic aneurysm without rupture: Qualifiers: Thoracic aorta location: ascending aorta Qualified Code(s): I71.21 - Aneurysm of the ascending aorta, without rupture Code(s): I71.2 - Thoracic aortic aneurysm, without rupture Status: Acute Assessment and Plan: CTA showing a 5.8 patient aware reports has been followed outpatient currently does not want any invasive surgical intervention (5) Obesity: Qualifiers: Body mass index: BMI 39.0-39.9 Obesity classification: adult class 2 (BMI 35 - 39.9) Obesity type: due to excess calories Serious obesity comorbidity presence: with serious comorbidity Qualified Code(s): E66.01 - Morbid (severe) obesity due to excess calories; Z68.39 - Body mass index [BMI] 39.0-39.9, adult Code(s): E66.9 - Obesity, unspecified Status: Acute Assessment and Plan: * Recommended heart healthy diet * Recommended to increase activity daily (6) Cardiomyopathy: Code(s): I42.9 - Cardiomyopathy, unspecified Status: Acute Assessment and Plan: patient with history of cardiomyopathy severe systolic dysfunction with LVEF of 2024 from echo in 2021 however follow-up echocardiogram in 2022 showed an LVEF of 50-55% * changed patient's Entresto to low dose and metoprolol to 25mg XL (7) JONAH (obstructive sleep apnea): Code(s): G47.33 - Obstructive sleep apnea (adult) (pediatric) Status: Acute Assessment and Plan: Patient with history of JONAH * ordered CPAP when sleeping Plan Code status: Full code per patient DVT prophylaxis: Heparin drip Stress ulcer prophylaxis: NA PT/OT notes: PT recommends inpatient rehab at discharge for safe return to assisted living Disposition: Patient continues admission for DVT will continue with Hep gtt repeat doppler study but likely no interventions will transition to Lovenox and plan for D/C to SNF. Time Spent With Patient Time with patient: Greater than 35 minutes Subjective Date/time seen: 03/19/25 10:22 Interval history: Patient is 74-year-old male admitted for further evaluation right lower extremity swelling with venous Doppler showing extensive DVT in the right popliteal, posterior tibial, peroneal and gastrocnemius vein currently compliant on Eliquis cyst outpatient. 03/19/2025: Spoke with patient's daughter and POA today who was requested if he needs vascular or thrombectomy that they are okay to move forward currently I have spoken with Dr. Goff with vascular at [facility] and recommend at this time to repeat venous doppler and continue Hep gtt but no intervention indicated unless occlusion above the knee typically femoral or illiac. Patient was seen up in chair pain mildly controlle dbut still reporting intermittant severe pain. No other complaints at time of assessment Review of Systems Review of Systems: All systems reviewed & are unremarkable except as noted in HPI and below (Subjective) Exam Const: General: comfortable and no acute distress Other: Obese, A&O x3 HENMT: Mouth: Yes moist mucous membranes Eyes: Pupils: Equal, round and reactive pupils present Neck: Neck: supple Resp: Effort & Inspection: normal respiratory effort Auscultation: clear to auscultation bilaterally Cardio: Rate: regular rate Rhythm: regular rhythm GI: Inspection: non-distended Neuro: Cranial nerves: Yes Equal, round and reactive pupils present Extrem: General: no edema Other: Right lower extremity tense and edematous, tender to deep palpation Objective Data Vital Signs Vital Signs: Vital Signs - 24 hr 03/18/25 12:00 03/18/25 16:00 03/18/25 20:16 Temperature 98.7 F 98.7 F Pulse Rate 93 103 H 105 H Respiratory Rate 16 20 18 Blood Pressure 108/58 L 102/56 L 102/56 L Pulse Oximetry 96 99 95 Oxygen Delivery 03/19/25 00:45 03/19/25 04:57 03/19/25 08:00 Temperature 97.2 F L Pulse Rate 91 Respiratory Rate 20 Blood Pressure 132/84 136/88 Pulse Oximetry 93 Oxygen Delivery Room Air 03/19/25 08:51 Temperature Pulse Rate 100 Respiratory Rate Blood Pressure Pulse Oximetry Oxygen Delivery Intake/Output Intake/Output: Intake & Output 03/16/25 03/17/25 03/18/25 03/19/25 23:59 23:59 23:59 23:59 Intake Total 1120 1323.3 721.2 975.3 Output Total 100 1000 400 450 Balance 1020 323.3 321.2 525.3 Meds/Results Medications: Active Medications Generic Name Dose Route Start Last Admin Trade Name Freq PRN Reason Stop Dose Admin Acetaminophen 650 mg 03/14/25 15:05 Acetaminophen 325 Mg Tablet PO Q6H PRN Mild Pain (1-3) or Fever Buspirone HCl 5 mg 03/14/25 09:00 03/19/25 08:52 Buspirone Hcl 5 Mg Tablet PO 5 mg Q12HR ANGELICA Administration Calcium Carbonate 200 mg 03/17/25 13:35 Calcium Carbonate (Tums) 500 Mg (200 Mg Elemental) PO Q6H PRN Indigestion Dextrose 12.5 gm 03/13/25 21:11 Dextrose 50% 25 Gm/50 Ml Syringe IV PUSH PRN PRN Hypoglycemia Protocol Empagliflozin 10 mg 03/15/25 09:00 03/19/25 08:52 Empagliflozin 10 Mg Tablet PO 10 mg DAILY ANGELICA Administration Furosemide 40 mg 03/15/25 09:00 03/17/25 09:58 Furosemide 40 Mg Tablet PO Not Given On Hold: 03/17/25 09:41 DAILY ANGELICA Glucose 15 gm 03/13/25 21:11 Glucose Oral Gel 15 Gm Of Glucse In 37.5 Gm Tube PO PRN PRN Hypoglycemia Protocol Heparin Sodium (Porcine) 7,500 units 03/15/25 18:40 Heparin Sodium 5,000 Units/Ml Vial IV PUSH PRN PRN aPTT less than 55 seconds Heparin Sodium (Porcine) 3,500 units 03/15/25 18:40 Heparin Sodium 5,000 Units/Ml Vial IV PUSH PRN PRN aPTT 55 - 70 seconds Hydromorphone HCl 1 mg 03/15/25 12:53 03/18/25 21:22 Hydromorphone Hcl Inj (*Crx) 1 Mg/Ml Syr IV PUSH 1 mg Q3H PRN Administration Pain Rated 7-10 Dextrose 1,000 mls @ 100 mls/hr 03/13/25 21:11 Dextrose 5% 1,000 Ml IVPB PRN PRN Hypoglycemia Protocol Heparin Sodium/Dextrose 25,000 units in 250 mls @ 15 mls/hr 03/15/25 18:40 03/19/25 06:50 Heparin Sodium/D5w 100 Units/Ml IV CONT 1,500 units/hr .[id number] ANGELICA 15 mls/hr Protocol Titration 1,500 UNITS/HR Insulin Aspart 2 - 5 units 03/14/25 08:00 03/19/25 08:53 Insulin Aspart (*Bkc) 100 Units/Ml SUB-Q Not Given TIDWM [facility] Protocol Insulin Aspart 1 - 2 units 03/14/25 21:00 03/18/25 20:26 Insulin Aspart (*Bkc) 100 Units/Ml SUB-Q Not Given HS [facility] Protocol Lansoprazole 30 mg 03/14/25 11:30 03/18/25 12:20 Lansoprazole Odt 30 Mg Tab.Rap.Dr PO Not Given DAILY@1130 ANGELICA Melatonin 5 mg 03/14/25 00:30 03/17/25 21:32 Melatonin 5 Mg Tablet PO 5 mg HS PRN Administration insomnia Metoprolol Succinate 25 mg 03/19/25 09:00 03/19/25 08:51 Metoprolol Succinate Ext Rel 25 Mg Tabcr PO 25 mg DAILY ANGELICA Administration Mirtazapine 15 mg 03/14/25 21:00 03/18/25 20:24 Mirtazapine 15 Mg Tablet PO 15 mg QHS ANGELICA Administration Multivitamins Therapeutic 1 tablet 03/15/25 09:00 03/19/25 08:52 Multivitamins Therapeutic Tab (*Bkc) PO 1 tablet DAILY ANGELICA Administration Ondansetron HCl 4 mg 03/14/25 15:05 Ondansetron Inj 4 Mg/2 Ml Vial IV PUSH Q6H PRN Nausea And Vomiting Oxycodone/Acetaminophen 1 tablet 03/17/25 08:00 03/19/25 08:52 Oxycodone/Acetaminophen (*Crx) 5-325 Mg Tablet PO 1 tablet Q6H ANGELICA Administration Pantoprazole Sodium 40 mg 03/17/25 13:35 03/19/25 08:52 Pantoprazole 40 Mg Tablet PO 40 mg QAM ANGELICA Administration Polyethylene Glycol 17 gm 03/17/25 09:00 03/19/25 08:52 Polyethylene Glycol 3350 17 Gm Powd.Pack PO 17 gm QAM ANGELICA Administration Potassium Chloride 20 meq 03/15/25 09:00 03/19/25 08:52 Potassium Chloride 20 Meq Er Tablet PO 20 meq DAILY ANGELICA Administration Rivastigmine 1 patch 03/15/25 09:00 03/19/25 08:52 Rivastigmine Tartrate 4.6 Mg Patch TRANSDERM 1 patch DAILY ANGELICA Administration Rosuvastatin Calcium 40 mg 03/14/25 09:00 03/19/25 08:52 Rosuvastatin 20 Mg Tablet PO 40 mg DAILY ANGELICA Administration Sacubitril/Valsartan 1 tab 03/19/25 09:00 03/19/25 09:11 Sacubitril/Valsartan 12-13 Mg Tablet PO 1 tab Q12HR ANGELICA Administration Senna/Docusate Sodium 1 tab 03/16/25 21:00 03/18/25 20:25 Senna/Docusate Sodium Tablet PO 1 tab HS ANGELICA Administration Spironolactone 25 mg 03/15/25 09:00 03/19/25 08:51 Spironolactone 25 Mg Tablet PO 25 mg QAM ANGELICA Administration Radiology Results: ITS Impressions Venous Doppler Study 03/13/25 17:53 IMPRESSION: 1: Extensive deep venous thrombosis of the right lower extremity. Chest CTA 03/13/25 18:57 IMPRESSION: 1. Stable fusiform ascending thoracic aortic aneurysm measuring 5.8 cm. 2: No evidence for pulmonary embolism. Abdomen/Pelvis CT 03/18/25 08:37 IMPRESSION: 1. No evidence of lymphoma. 2. 3.0 cm right kidney mass, most likely a hemorrhagic cyst. Neoplasm is not excluded. Abdomen CT without and with contrast is recommended. 3. Right inguinal hernia containing nonobstructed sigmoid colon and the appendix. Labs Labs: Laboratory Results - last 24 hr 03/16/25 03/16/25 03/18/25 07:38 11:42 12:04 WBC RBC Hgb Hct MCV MCH MCHC RDW Plt Count MPV APTT Sodium Potassium Chloride Carbon Dioxide Anion Gap BUN Creatinine Estim Creat Clear Calc Estimated GFR Glucose POC Capillary Glucose 120 H 117 H 105 Calcium Magnesium Total Bilirubin AST ALT Alkaline Phosphatase Total Protein Albumin 03/18/25 03/18/25 03/19/25 16:51 20:19 06:11 WBC RBC Hgb Hct MCV MCH MCHC RDW Plt Count MPV APTT Sodium 136 L Potassium 3.7 Chloride 106 Carbon Dioxide 20 L Anion Gap 10 BUN 22 H Creatinine 1.28 Estim Creat Clear Calc 59 Estimated GFR 55 L Glucose 113 H POC Capillary Glucose 121 H 123 H Calcium 8.1 L Magnesium 2.5 H Total Bilirubin 1.1 AST 110 H ALT 41 Alkaline Phosphatase 98 Total Protein 6.2 L Albumin 3.2 L 03/19/25 03/19/25 06:12 08:15 WBC 11.2 H RBC 3.06 L Hgb 8.2 L Hct 27.1 L MCV 88.6 MCH 26.8 MCHC 30.3 L RDW 14.5 Plt Count 358 MPV 9.1 APTT 85.8 H Sodium Potassium Chloride Carbon Dioxide Anion Gap BUN Creatinine Estim Creat Clear Calc Estimated GFR Glucose POC Capillary Glucose 109 H Calcium Magnesium Total Bilirubin AST ALT Alkaline Phosphatase Total Protein Albumin Quality VTE Prophylaxis VTE prophylaxis: pharmacologic ordered -Patient's previous records reviewed on admission -ER notes reviewed in detail on admission -discussed all findings and current treatment plan with patient/Family/POA -Consultations reviewed for recommendations -Patient's disposition for safe discharge discussed with case packer -radiology imaging, EKG and test results I have personally reviewed and interpreted unless otherwise specified Dictation performed by [employer] direct speech recognition software, therefore warehouse puller variants and typographical errors may occur. Hospitalist MIPS Advance Care Plan I have confirmed that the patient's Advanced Care Plan is present, code status is documented, or surrogate decision maker is listed in patient medical record.: Yes Medication Reconciliation I have utilized all available resources to obtain, update and review the patients current medications (includes all prescriptions, OTC, herbals, cannabis, and nutritional supplements).: Yes The patient is not eligible for med reconciliation; the patient is in a emergent medical situation where delaying treatment would jeopardize the patients health.: No
[2025-03-19] MEDS: HYDROmorphone HCL INJ (*CRX) 1 MG/ML SYR IV PUSH (10:44)
[2025-03-19] MEDS: LANSOPRAZOLE ODT 30 MG TAB.RAP.DR PO (11:12)
[2025-03-19] MEDS: HEPARIN SOD/D5W 100 UNITS/ML 25,000 UNITS/250 ML BAG 15 UNITS IV CONT (13:37)
--- NOTE | 2025-03-19 14:49 | PCPTNOTE ---
Attempted to see patient for PT, however patient was out of the room.
--- NOTE | 2025-03-19 19:07 | P.TS_ITS ---
Transfer Discharge Sum: Prov Provider Date of admission: 03/15/25 13:49 Primary care physician: Dalila De La Rosa APRN Admitting clinician: Letitia Schmidt MD Attending physician on admission: Letitia Schmidt Consults: 03/13/25 Consult to Physician Routine Comment: Consulting Provider: Vasiliy Solano call center agent/MD group to consult: hematology Reason for consultation: DVT on eliquis Has provider been notified: Yes 03/19/25 Consult to Physician Routine Comment: Spoke to Dr 03/19 9313 ([facility]) Consulting Provider: Garry Mckeon call center agent/ group to consult: Surgery Reason for consultation: concern LLE compartment syndrome Has provider been notified: Yes Attending physician on discharge: Radhames Nunes Discharging clinician: Cinthya Helton Anticipated date of transfer: 03/19/25 Receiving physician/facility: [facility]/Dr. Olvera hospitalist and vascular Dr. coronado DS: Admitting Diagnosis Discharge Date 03/19/2025 Admitting Diagnosis RLE DVT DS: Discharge Diagnosis Discharge Diagnosis (1) DVT (deep venous thrombosis): Code(s): I82.409 - Acute embolism and thrombosis of unspecified deep veins of unspecified lower extremity Status: Acute Assessment and Plan: Venous Doppler: There is deep venous thrombosis of the right popliteal, posterior tibial, peroneal and gastrocnemius veins. The greater saphenous vein is patent. Common femoral vein is patent. Patient with previous history of PE reports he is compliant with his Eliquis. spoken with Dr. Goff with vascular at [facility] and recommend at this time to repeat venous doppler and continue Hep gtt but no intervention indicated unless occlusion above the knee typically femoral or iliac * Hematology has been consulted from the emergency department and recommended initially full-dose Lovenox b.i.d. for one month at discharge plan for this when patient is discharged however due to patient's continued pain and swelling for recommended to start a Heparin drip return to continue for a few days likely then transition back to Lovenox * CT abdomen pelvis to rule out return of lymphoma ordered by hematology pending at time of documentation * Patient currently does not want surgical intervention thrombectomy/IVC filter * Would recommend outpatient hypercoagulable studies * Will discontinue patient's Eliquis at this time * Reports increased pain in the affected extremity, likely secondary to revascularization * Posterior tibial pulse weak but palpable today * repeat venous doppler (2) HTN (hypertension): Qualifiers: Hypertension type: essential hypertension Qualified Code(s): I10 - Essential (primary) hypertension Code(s): I10 - Essential (primary) hypertension Status: Acute Assessment and Plan: * Resume patient's metoprolol at lower dose 25mg daily * Monitor BP per unit protocol (3) Congestive heart failure: Qualifiers: Heart failure type: combined systolic and diastolic Heart failure chronicity: chronic Qualified Code(s): I50.42 - Chronic combined systolic (congestive) and diastolic (congestive) heart failure Code(s): I50.9 - Heart failure, unspecified Status: Acute Assessment and Plan: Patient with history of CHF does not appear and exacerbation * changed patient's Entresto to low dose and metoprolol to 25mg XL * resumed spironolactone holding Lasix (4) Thoracic aortic aneurysm without rupture: Qualifiers: Thoracic aorta location: ascending aorta Qualified Code(s): I71.21 - Aneurysm of the ascending aorta, without rupture Code(s): I71.2 - Thoracic aortic aneurysm, without rupture Status: Acute Assessment and Plan: CTA showing a 5.8 patient aware reports has been followed outpatient currently does not want any invasive surgical intervention (5) Obesity: Qualifiers: Obesity type: due to excess calories Obesity classification: adult class 2 (BMI 35 - 39.9) Serious obesity comorbidity presence: with serious comorbidity Body mass index: BMI 39.0-39.9 Qualified Code(s): E66.01 - Morbid (severe) obesity due to excess calories; Z68.39 - Body mass index [BMI] 39.0- 39.9, adult Code(s): E66.9 - Obesity, unspecified Status: Acute Assessment and Plan: * Recommended heart healthy diet * Recommended to increase activity daily (6) Cardiomyopathy: Code(s): I42.9 - Cardiomyopathy, unspecified Status: Acute Assessment and Plan: patient with history of cardiomyopathy severe systolic dysfunction with LVEF of 2024 from echo in 2021 however follow-up echocardiogram in 2022 showed an LVEF of 50-55% * changed patient's Entresto to low dose and metoprolol to 25mg XL (7) JONAH (obstructive sleep apnea): Code(s): G47.33 - Obstructive sleep apnea (adult) (pediatric) Status: Acute Assessment and Plan: Patient with history of JONAH * ordered CPAP when sleeping Transfer Discharge Sum: Med Medications Active and Home Medications: Home Medications multivitamin 1 tablet PO DAILY 04/11/19 [History Confirmed 03/13/25] mirtazapine 15 mg tablet 15 mg PO DAILY #1 tablet 11/22/20 [Rx Confirmed 03/13/25] vortioxetine 20 mg tablet (Trintellix) 20 mg PO DAILY 03/12/21 [History Confirmed 03/13/25] buspirone 5 mg tablet 5 mg PO Q12HR 30 days #60 tabs 08/03/21 [Rx Confirmed 03/13/25] empagliflozin 10 mg tablet (Jardiance) 10 mg PO DAILY #30 tabs 08/03/21 [Rx Confirmed 03/13/25] furosemide 40 mg tablet 40 mg PO DAILY #30 tabs 08/03/21 [Rx Confirmed 03/13/25] potassium chloride 20 mEq tablet,extended release (K-Tab) 20 meq PO DAILY #30 tabs 08/03/21 [Rx Confirmed 03/13/25] spironolactone 25 mg tablet 25 mg PO QAM #30 tabs 08/03/21 [Rx Confirmed 03/13/25] polysaccharide iron complex 150 mg iron capsule (Ferrex) See Rx Instructions .Route .COMPLEX #180 caps 08/22/21 [Rx Confirmed 03/13/25] metoprolol succinate 25 mg tablet,extended release 24 hr (Toprol XL) 75 mg PO DAILY 08/29/21 [History Confirmed 03/13/25] rivastigmine 4.6 mg/24 hour transdermal patch 4.6 mg transdermal DAILY 08/29/21 [History Confirmed 03/13/25] sacubitril 49 mg-valsartan 51 mg tablet (Entresto) 1 tablet PO BID 03/18/22 [History Confirmed 03/13/25] lansoprazole 30 mg capsule,delayed release 30 mg PO DAILY #90 caps 10/02/22 [Rx Confirmed 03/13/25] apixaban 5 mg tablet (Eliquis) 5 mg PO Q12H #60 tabs 05/28/23 [Rx Confirmed 03/13/25] aspirin 81 mg tablet,delayed release (Adult Aspirin Regimen) 81 mg PO DAILY 10/25/23 [History Confirmed 03/13/25] rosuvastatin 40 mg tablet 40 mg PO DAILY 10/25/23 [History Confirmed 03/13/25] cholecalciferol (vitamin D3) 25 mcg (1,000 unit) capsule 25 mcg PO DAILY #90 caps 10/26/23 [Rx Confirmed 03/13/25] acetaminophen 500 mg capsule 1,000 mg (2 x 500 mg) PO Q6H PRN pain #120 caps 01/27/24 [Rx Confirmed 03/13/25] diclofenac sodium 1 % topical gel (Arthritis Pain (diclofenac)) 4 g topical QID PRN pain #100 grams 11/07/24 [Rx Confirmed 03/13/25] Active Medications Acetaminophen (Acetaminophen 325 Mg Tablet) 650 mg PO Q6H PRN PRN Reason: Mild Pain (1-3) or Fever Buspirone HCl (Buspirone Hcl 5 Mg Tablet) 5 mg PO Q12HR [facility] Last Admin: 03/19/25 08:52 Dose: 5 mg Calcium Carbonate (Calcium Carbonate (Tums) 500 Mg (200 Mg Elemental)) 200 mg PO Q6H PRN PRN Reason: Indigestion Dextrose (Dextrose 50% 25 Gm/50 Ml Syringe) 12.5 gm IV PUSH PRN PRN; Protocol PRN Reason: Hypoglycemia Empagliflozin (Empagliflozin 10 Mg Tablet) 10 mg PO DAILY [facility] Last Admin: 03/19/25 08:52 Dose: 10 mg Furosemide (Furosemide 40 Mg Tablet) 40 mg PO DAILY [facility] On Hold: 03/17/25 09:41 Last Admin: 03/17/25 09:58 Dose: Not Given Glucose (Glucose Oral Gel 15 Gm Of Glucse In 37.5 Gm Tube) 15 gm PO PRN PRN; Protocol PRN Reason: Hypoglycemia Heparin Sodium (Porcine) (Heparin Sodium 5,000 Units/Ml Vial) 7,500 units IV PUSH PRN PRN PRN Reason: aPTT less than 55 seconds Heparin Sodium (Porcine) (Heparin Sodium 5,000 Units/Ml Vial) 3,500 units IV PUSH PRN PRN PRN Reason: aPTT 55 - 70 seconds Hydromorphone HCl (Hydromorphone Hcl Inj (*Crx) 1 Mg/Ml Syr) 1 mg IV PUSH Q3H PRN PRN Reason: Pain Rated 7-10 Last Admin: 03/19/25 10:44 Dose: 1 mg Dextrose (Dextrose 5% 1,000 Ml) 1,000 mls @ 100 mls/hr IVPB PRN PRN; Protocol PRN Reason: Hypoglycemia Heparin Sodium/Dextrose (Heparin Sodium/D5w 100 Units/Ml) 25,000 units in 250 mls @ 15 mls/hr IV CONT .[id number] [facility]; Protocol Last Admin: 03/19/25 13:37 Dose: 1,500 units/hr, 15 mls/hr Insulin Aspart (Insulin Aspart (*Bkc) 100 Units/Ml) 2 - 5 units SUB-Q TIDWM [facility]; Protocol Last Admin: 03/19/25 17:54 Dose: Not Given Insulin Aspart (Insulin Aspart (*Bkc) 100 Units/Ml) 1 - 2 units SUB-Q HS [facility]; Protocol Last Admin: 03/18/25 20:26 Dose: Not Given Lansoprazole (Lansoprazole Odt 30 Mg Tab.Rap.Dr) 30 mg PO DAILY@1130 [facility] Last Admin: 03/19/25 11:12 Dose: 30 mg Melatonin (Melatonin 5 Mg Tablet) 5 mg PO HS PRN PRN Reason: insomnia Last Admin: 03/17/25 21:32 Dose: 5 mg Metoprolol Succinate (Metoprolol Succinate Ext Rel 25 Mg Tabcr) 25 mg PO DAILY [facility] Last Admin: 03/19/25 08:51 Dose: 25 mg Mirtazapine (Mirtazapine 15 Mg Tablet) 15 mg PO QHS [facility] Last Admin: 03/18/25 20:24 Dose: 15 mg Multivitamins Therapeutic (Multivitamins Therapeutic Tab (*Bkc)) 1 tablet PO DAILY [facility] Last Admin: 03/19/25 08:52 Dose: 1 tablet Ondansetron HCl (Ondansetron Inj 4 Mg/2 Ml Vial) 4 mg IV PUSH Q6H PRN PRN Reason: Nausea And Vomiting Oxycodone/Acetaminophen (Oxycodone/Acetaminophen (*Crx) 5-325 Mg Tablet) 1 tablet PO Q6H [facility] Last Admin: 03/19/25 13:36 Dose: 1 tablet Pantoprazole Sodium (Pantoprazole 40 Mg Tablet) 40 mg PO QAM [facility] Last Admin: 03/19/25 08:52 Dose: 40 mg Polyethylene Glycol (Polyethylene Glycol 3350 17 Gm Powd.Pack) 17 gm PO QAM [facility] Last Admin: 03/19/25 08:52 Dose: 17 gm Potassium Chloride (Potassium Chloride 20 Meq Er Tablet) 20 meq PO DAILY [facility] Last Admin: 03/19/25 08:52 Dose: 20 meq Rivastigmine (Rivastigmine Tartrate 4.6 Mg Patch) 1 patch TRANSDERM DAILY [facility] Last Admin: 03/19/25 08:52 Dose: 1 patch Rosuvastatin Calcium (Rosuvastatin 20 Mg Tablet) 40 mg PO DAILY [facility] Last Admin: 03/19/25 08:52 Dose: 40 mg Sacubitril/Valsartan (Sacubitril/Valsartan 12-13 Mg Tablet) 1 tab PO Q12HR [facility] Last Admin: 03/19/25 09:11 Dose: 1 tab Senna/Docusate Sodium (Senna/Docusate Sodium Tablet) 1 tab PO HS [facility] Last Admin: 03/18/25 20:25 Dose: 1 tab Spironolactone (Spironolactone 25 Mg Tablet) 25 mg PO QAM [facility] Last Admin: 03/19/25 08:51 Dose: 25 mg Transfer Discharge Sum: Hosp Hospital Course Hospital course: Patient was a 74-year-old male with multiple medical comorbidities including class 2 obesity, Thoracic aortic aneurysm 5.8 cm history of PE, memory loss presents with 2 days of right lower extremity swelling and pain. He was on Eliquis and complaint reported from assisted living. In the ED: Initial workup reveals serum creatinine 1.61, right lower extremity venous Doppler with extensive deep venous thrombosis of the right popliteal, posterior tibial, peroneal and gastrocnemius veins. Chest CTA does not reveal pulmonary embolism, and a stable fusiform ascending thoracic aortic aneurysm measuring 5.8 cm. Hematology consulted from ER, recommended therapeutic Lovenox. Patient daughter POA aware of risk of considering the aortic aneurysm size. They do not want transfer and did not want surgical intervention at time of admission. Hospital Course: Patient was admitted to the medical unit for further treatment of RLE DVT. Patient had been started on Lovenox 1mg/kg BID for initial treatment but had minimal improvement to symptoms at which time hematology recommended transition to a heparin gtt DVT protocol at 18. Patient was continued on heparin gtt with no improvement to swelling and pain remained severe even with oral and IV pain medication. Patient did have doppler pedal pulse to RLE and faint palpable pulse. Concerns for continued pain and no improvement to symptoms I spoke with Dr. Goff a Vascular surgeon at [facility] who recommended repeat doppler for further evaluation. The radiologist Dr. Hamilton called a a critical finding from new doppler showing the following findings: IMPRESSION: 1. No evident deep venous thrombosis in the visualized veins of the right lower limb. The below-knee popliteal vein and peroneal veins were unable be clearly visualized. 2. 3 very hypoechoic lesions at the proximal to mid right calf suspicious for complex fluid collections measuring 5.5 x 2.8 x 2.0 cm at the superficial medial upper calf,, slightly deeper collection also at the medial mid upper calf measuring 7.4 x 3.1 x 4.1 cm and the largest collection also the deep mid calf measuring 14.9 x 10.4 x 9.4 cm. These are concerning for hematomas although differential would include abscess in the appropriate clinical setting or artifactual appearance resulting from severe soft tissue edema. Given the size of the deepest lesion, the absence of evident vascular flow in the region of the deeper lesion in the associated firmness to the soft tissues and severe pain raise concern for compartment syndrome. Correlate clinically for signs/symptoms of compartment syndrome and could consider further evaluation contrast enhanced CT or MRI as clinically indicated. At this time I ordered a stat CT with contrast and consult to general surgery was placed at which time I spoke with Dr. Fonseca who recommended transfer since we do not have vascular service available as well as equipment to measure pressure. I first contact [facility] transfer line however they did not have any bed availability even for emergent transfers. [facility] was called for transfer and spoke Dr. Coronado with vascular service who accepted patient as well as Dr. Olvera with hospitalist service for immediate transfer for compartment syndrome. I spoke with patient daughter/ROJELIO Toa regarding need for emergent transfer who acknowledged and agreed to transfer. Patient vitals reviewed and stable at time of transfer. Patient transferred via EMS on heparin gtt to [facility] for higher level of care. Patient Condition: Serious Time Spent with Patient Time attestation: Total time spent providing and/or coordinating transfer services: Total time spent: Greater than 30 minutes Exam Const: General: no acute distress Other: Obese, A&O x3, still with moderate to severe pain to RLE HENMT: Mouth: Yes moist mucous membranes Eyes: Pupils: Equal, round and reactive pupils present Neck: Neck: supple Resp: Effort & Inspection: normal respiratory effort Auscultation: clear to auscultation bilaterally Cardio: Rate: regular rate Rhythm: regular rhythm GI: Inspection: non-distended Neuro: Cranial nerves: Yes Equal, round and reactive pupils present Extrem: General: no edema Other: Right lower extremity tense and edematous, tender to deep palpation Psych: Mental Status: mental status grossly normal Affect: normal affect Other: Patient with history of intermittant memory loss DS: Data Data Completed and Pending Labs on day of discharge: Labs from last 24 hours 03/19/25 03/19/25 03/19/25 16:51 10:33 08:15 WBC RBC Hgb Hct MCV MCH MCHC RDW Plt Count MPV APTT Sodium Potassium Chloride Carbon Dioxide Anion Gap BUN Creatinine Estim Creat Clear Calc Estimated GFR Glucose POC Capillary Glucose 118 H 120 H 109 H Calcium Magnesium Total Bilirubin AST ALT Alkaline Phosphatase Total Protein Albumin 03/19/25 03/19/25 03/18/25 06:12 06:11 20:19 WBC 11.2 H RBC 3.06 L Hgb 8.2 L Hct 27.1 L MCV 88.6 MCH 26.8 MCHC 30.3 L RDW 14.5 Plt Count 358 MPV 9.1 APTT 85.8 H Sodium 136 L Potassium 3.7 Chloride 106 Carbon Dioxide 20 L Anion Gap 10 BUN 22 H Creatinine 1.28 Estim Creat Clear Calc 59 Estimated GFR 55 L Glucose 113 H POC Capillary Glucose 123 H Calcium 8.1 L Magnesium 2.5 H Total Bilirubin 1.1 AST 110 H ALT 41 Alkaline Phosphatase 98 Total Protein 6.2 L Albumin 3.2 L 03/16/25 03/16/25 11:42 07:38 WBC RBC Hgb Hct MCV MCH MCHC RDW Plt Count MPV APTT Sodium Potassium Chloride Carbon Dioxide Anion Gap BUN Creatinine Estim Creat Clear Calc Estimated GFR Glucose POC Capillary Glucose 117 H 120 H Calcium Magnesium Total Bilirubin AST ALT Alkaline Phosphatase Total Protein Albumin Imaging Radiologist's impression: Radiology Results: ITS Impressions Venous Doppler Study 03/13/25 17:53 IMPRESSION: 1: Extensive deep venous thrombosis of the right lower extremity. Chest CTA 03/13/25 18:57 IMPRESSION: 1. Stable fusiform ascending thoracic aortic aneurysm measuring 5.8 cm. 2: No evidence for pulmonary embolism. Abdomen/Pelvis CT 03/18/25 08:37 IMPRESSION: 1. No evidence of lymphoma. 2. 3.0 cm right kidney mass, most likely a hemorrhagic cyst. Neoplasm is not excluded. Abdomen CT without and with contrast is recommended. 3. Right inguinal hernia containing nonobstructed sigmoid colon and the appendix. EXAMINATION: US venous doppler LE RT DATE: 03/19/2025 15:09 INDICATION: Deep venous thrombosis TECHNIQUE: Grayscale ultrasound images without and with compression and Doppler ultrasound images of the right lower extremity veins were obtained. COMPARISON: None. FINDINGS: The visualized portions of right common femoral vein, profunda (deep) femoral vein, femoral vein, above the knee popliteal vein, posterior tibial veins and greater saphenous vein outflow are patent. The below the knee popliteal vein and peroneal veins were unable to be clearly visualized. There are several mixed anechoic and very hypoechoic likely complex fluid collections at the right calf. This includes a 5.5 x 2.8 x 2.0 cm fusiform collection at the medial upper calf. This appears to potentially communicate with a deeper 14.9 x 10.4 x 9.4 cm predominantly hypoechoic lesion at the medial mid calf which is without internal vascular flow on color Doppler. Appearance is suspicious for an intramuscular hematoma with extra muscular extension. Per discussion with the pool attendant this region was firm and exquisitely tender to palpation during scanning.
--- NOTE | 2025-03-19 19:44 | PC.NURSE ---
report given to chemo BUCHANAN at [facility].
[2025-03-19] MEDS: MIRTAZAPINE 15 MG TABLET PO (20:38)
[2025-03-19] MEDS: SENNA/DOCUSATE SODIUM TABLET 1 TAB PO (20:38)
--- NOTE | 2025-03-19 21:30 | PC.NURSE ---
EMS arrived at 2100, called and spoke to Rimma BUCHANAN at [facility]. She is aware that patient will be leaving [facility] in the next 10 min. Report was given to her by Marc BUCHANAN at 1930
== END 2025-03-19 21:45 | disposition short-term general hospital (02) | DRG 300 ==
LOC: ANHED 21:36 → ANH3MEDSUR 21:41
PROVIDERS: Internal Medicine; Internal Medicine Hematology & Oncology; Admitting Provider General Practice; Emergency Provider Physician Assistant; PCP Nurse Practitioner Family; Visit Provider Nurse Practitioner Family
DX: I82.431 Acute embolism and thrombosis of right popliteal vein (principal); I42.9 Cardiomyopathy, unspecified; I50.42 Chronic combined systolic (congestive) and diastolic (congestive) heart failure; I82.441 Acute embolism and thrombosis of right tibial vein; I82.451 Acute embolism and thrombosis of right peroneal vein; I82.461 Acute embolism and thrombosis of right calf muscular vein; E66.9 Obesity, unspecified; R79.89 Other specified abnormal findings of blood chemistry; G47.33 Obstructive sleep apnea (adult) (pediatric); I11.0 Hypertensive heart disease with heart failure; K21.9 Gastro-esophageal reflux disease without esophagitis; I71.21 Aneurysm of the ascending aorta, without rupture; E78.00 Pure hypercholesterolemia, unspecified; Z86.711 Personal history of pulmonary embolism; Z79.01 Long term (current) use of anticoagulants; Z86.16 Personal history of COVID-19; Z86.73 Personal history of transient ischemic attack (TIA), and cerebral infarction without residual deficits; Z68.37 Body mass index [BMI] 37.0-37.9, adult; Z85.71 Personal history of Hodgkin lymphoma
CPT/HCPCS: 36415; 71275; 73701; 74177; 80048; 80053; 82607; 82728; 82746; 82948; 83540; 83550; 83615; 83735; 83880; 84132; 85025; 85027; 85610; 85730; 93005; 93971; 94002; 96372; 97110; 97162; 97165; 97530; 97535; 99285; A9270; G0378; J1171; J1644; J1650; J7030; Q9967

== ENCOUNTER 2025-04-19 17:20 | Inpatient (IN) | payer MEDICARE, SELFPAY ==
[2025-04-19] VITALS (29 sets, daily range): BP systolic 76–119; BP diastolic 47–73; PULSE 111–136; RESP 12–30; TEMP 36.5–37.6; O2SAT 97–100; BMI 35.2
--- NOTE | ~2025-04-19 | CT_ITS ---
CT brain wo con HISTORY:AMS COMPARISON: None. TECHNIQUE: Axial images were obtained of the head without intravenous contrast. FINDINGS: No acute intracranial hemorrhage, mass effect or midline shift. No extra-axial fluid collections. There is generalized atrophy. The calvarium is intact. Visualized paranasal sinuses and mastoid air cells are clear. IMPRESSION: No acute intracranial hemorrhage or extra axial fluid collections. All CT scans at this facility are performed using low dose modulation techniques as appropriate to perform exam including the following: automated exposure control; use of iterative reconstruction technique; adjustment of the mA and/or kV according to patient size (this includes techniques or standardized protocols for targeted exams where dose is matched to indication/reason for exam). Reviewed, dictated and finalized at location S. IMPRESSION: No acute intracranial hemorrhage or extra axial fluid collections. All CT scans at this facility are performed using low dose modulation techniqu es as appropriate to perform exam including the following: automated exposure c ontrol; use of iterative reconstruction technique; adjustment of the mA and/or kV according to patient size (this includes techniques or standardized protocol s for targeted exams where dose is matched to indication/reason for exam).
--- NOTE | ~2025-04-19 | XR_ITS ---
Examination: XR chest 1V portable Clinical History: generalized weakness Comparison: X-ray 05/24/2025 CTA chest 03/13/2025 Technique: Portable AP Findings: Heart size unchanged. Left perihilar airspace opacity Chronic elevation left hemidiaphragm, associated basilar atelectasis. No acute bony abnormality. IMPRESSION: 1. Suspect left perihilar airspace disease. Can consider PA and lateral films with deep inspiration. Reviewed, dictated and finalized at location R.
--- NOTE | ~2025-04-19 | XR_ITS ---
MODIFIED ESOPHAGRAM HISTORY: Coughing TECHNIQUE: Modified barium esophagram was performed on 04/20/2025. I administered fluoroscopy and performed the exam with speech pathologist. Patient was seated for lateral fluoroscopic imaging for ingestion of thin liquids, pudding, solids and quantified amounts, followed by thin liquids in uncontrolled amounts. This was recorded on tape. A single fluoroscopic spot image was also recorded. The DAP for this procedure was 5.278 Gycm2. The amount of fluoroscopy time used during this procedure was 4.9 minutes. FINDINGS: Oral stage: Reduced labial seal/lip tension. Reduced lingual movement.. Pharyngeal stage: Reduced laryngeal adduction, tongue base retraction and pharyngeal squeeze. There is vallecular, piriform sinus and pharyngeal wall residue. There was laryngeal penetration with silent aspiration. Cervical/esophageal stage: Adequate function. IMPRESSION: Oropharyngeal dysphagia with laryngeal penetration and silent aspiration. Please correlate with speech pathologist findings and specific feeding recommendations. Reviewed, dictated and finalized at location A. IMPRESSION: Oropharyngeal dysphagia with laryngeal penetration and silent aspir ation. Please correlate with speech pathologist findings and specific feeding recommendations.
--- NOTE | ~2025-04-19 | CT_ITS ---
EXAMINATION: CT LE RT w con DATE: 04/24/2025 12:33 INDICATION: Right calf hematoma TECHNIQUE: High resolution computed tomography (CT) of the right calf was performed with 100 mL Omnipaque-350 intravenous contrast. Additional sagittal and coronal reconstructions were performed. Automated exposure control and iterative reconstruction technique were employed. The dose-length product was 1228.09 mGy-cm. COMPARISON: CT dated 03/19/2025 FINDINGS: Again seen is a large evolving complex fluid collection in the posterior compartment of the right calf with some decrease in the high attenuation with some residual small high attenuation regions most suggestive of an evolving hematoma. The fluid collection currently measures 22.6 cm in length and 11.9 x 5.2 cm in maximal orthogonal dimensions. Also without significant interval change is a small right knee joint effusion and small Roman's cyst. Bone alignment is normal. No fracture. Mild osteoarthritis at the patellofemoral compartment of the right knee. Small amounts of nonhemodynamically significant atherosclerotic plaque along the popliteal artery and at the proximal aspect of the arteries of the right calf with three-vessel runoff to the ankle. There is prominent subcutaneous edema along the calf most prominent posterolaterally at about the ankle. IMPRESSION: 1. No significant change in size of a 22.6 x 11.9 x 5.2 cm complex fluid collection in the posterior compartment of the right calf most likely an evolving hematoma. Differential would include abscess in the appropriate clinical setting. 2. Mild patellofemoral osteoarthritis with persistent nonspecific small right knee joint effusion. Reviewed, dictated and finalized at location A. OUT OPERATOR IMPRESSION: 1. No significant change in size of a 22.6 x 11.9 x 5.2 cm complex fluid collec tion in the posterior compartment of the right calf most likely an evolving hem atoma. Differential would include abscess in the appropriate clinical setting. 2. Mild patellofemoral osteoarthritis with persistent nonspecific small right k nee joint effusion.
--- NOTE | ~2025-04-19 | XR_ITS ---
MODIFIED ESOPHAGRAM HISTORY: Dysphagia. TECHNIQUE: Modified barium esophagram was performed on 04/23/2025. I administered fluoroscopy and performed the exam with speech pathologist. Patient was seated for lateral fluoroscopic imaging for ingestion of thin liquids, pudding, solids and quantified amounts, followed by thin liquids in uncontrolled amounts. This was recorded on tape. A single fluoroscopic spot image was also recorded. The DAP for this procedure was 3.7 Gycm2. The amount of fluoroscopy time used during this procedure was 2.9 minutes. FINDINGS: Oral stage: Adequate function. Pharyngeal stage: Reduced laryngeal elevation and adduction. Reduced tongue best retraction. Vallecular residue. Laryngeal penetration without aspiration. Cervical/esophageal stage: Adequate function. IMPRESSION: Pharyngeal dysphagia with laryngeal penetration without aspiration. Please correlate with speech pathologist findings and specific feeding recommendations. Reviewed, dictated and finalized at location A. ACE MASON IMPRESSION: Pharyngeal dysphagia with laryngeal penetration without aspiration. Please correlate with speech pathologist findings and specific feeding recomm endations.
--- NOTE | ~2025-04-19 | XR_ITS ---
MODIFIED ESOPHAGRAM HISTORY: Dysphagia. TECHNIQUE: Modified barium esophagram was performed on 04/27/2025. I administered fluoroscopy and performed the exam with speech pathologist. Patient was seated for lateral fluoroscopic imaging for ingestion of thin liquids, pudding, solids and quantified amounts, followed by thin liquids in uncontrolled amounts. This was recorded on tape. A single fluoroscopic spot image was also recorded. The DAP for this procedure was 1.557 Gycm2. The amount of fluoroscopy time used during this procedure was 1.5 minutes. FINDINGS: Oral stage: Adequate function. Pharyngeal stage: Flash laryngeal penetration which rapidly cleared with no aspiration.. Cervical/esophageal stage: Adequate function. IMPRESSION: Transient flash laryngeal penetration without aspiration. Please correlate with speech pathologist findings and specific feeding recommendations. Reviewed, dictated and finalized at location A. SECONDARY PROFESSIONAL IMPRESSION: Transient flash laryngeal penetration without aspiration. Please c orrelate with speech pathologist findings and specific feeding recommendations.
--- NOTE | ~2025-04-19 | CT_ITS ---
CTA CHEST ABDOMEN PELVIS CLINICAL HISTORY: TAA, PE hx, afib rvr . COMPARISON: Chest x-ray today CTA chest 03/13/2025 CT abdomen pelvis 03/17/2025 TECHNIQUE: Helical CT performed from thoracic inlet to symphysis pubis IV contrast information not listed in PACS Coronal, sagittal reformats. Multiplanar MIPS CT images acquired with automatic exposure control for dose reduction DLP: 6097 mGy-cm FINDINGS: CHEST- Respiratory motion artifact. Thoracic Aorta: No dissection. 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 Pulmonary arteries: Normal caliber. No PE identified. Lungs/Pleura: Lingular and bibasilar atelectasis. Heart: Cardiomegaly. Atherosclerotic disease. Tracheobronchial tree: Patent. Nodes: Mildly enlarged lymph nodes left axilla. Bones: No acute bony abnormality. Soft tissues: Unremarkable. ABDOMEN/PELVIS- CTA Abdominal aorta: No aneurysm or dissection. Atherosclerotic disease. Common iliac arteries: Patent. External iliac arteries: Patent. Hypogastric arteries: Patent. CFAs: Patent. Proximal visualized SFAs and profundas: Patent. Celiac: Patent. SMA: Patent. ISAI: Patent. Renal arteries: Patent. Right accessory artery. NON-CTA Left lateral abdominal wall excluded from exam. Liver: Unremarkable. Gallbladder: Unremarkable. Spleen: Unremarkable. Pancreas: Unremarkable. Adrenal glands: Unremarkable. Kidneys: Right kidney- No hydronephrosis. No renal stones. Cysts. Exophytic lower pole focus as before, attention on future scans. Left kidney- No hydronephrosis. No renal stones. Cysts. Distal esophagus/stomach: Unremarkable. Small bowel loops: Normal caliber and wall thickness. Colon: Diverticula. Normal caliber and wall thickness. Normal RLQ appendix. Liquid stool/diarrhea. Nodes: No enlarged nodes. Peritoneum: No ascites. No free air. Urinary bladder: Unremarkable. Prostate: Unremarkable. Bones: No acute bony abnormality. Soft tissues: Right inguinal hernia with fat. IMPRESSION: CHEST- 1. Mildly enlarged lymph nodes left axilla. Malignancy not excluded. 2. 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 Recommend surgical consultation. 3. No PE or other acute cardiopulmonary findings. ABDOMEN/PELVIS- 1. No acute abdominopelvic findings. Reviewed, dictated and finalized at location R. IMPRESSION: CHEST- 1. Mildly enlarged lymph nodes left axilla. Malignancy not excluded. 2. 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 Recommend surgical co nsultation. 3. No PE or other acute cardiopulmonary findings. ABDOMEN/PELVIS- 1. No acute abdominopelvic findings.
--- NOTE | 2025-04-19 17:51 | ECG_ITS ---
Test Date: 2025-04-19 17:40:21 Measurements Intervals Colver Rate: 135 P: 0 MA: 0 QRS: -49 QRSD: 114 T: 4 QT: 329 QTc: 494 Interpretive Statements ATRIAL FIBRILLATION WITH RAPID VENTRICULAR RESPONSE VOLTAGE CRITERIA FOR LVH CONSIDER ANTERIOR INFARCT, AGE INDETERMINATE INFERIOR INFARCT, AGE INDETERMINATE ABNORMAL ECG Compared to ECG 03/13/2025 17:58:14 Sinus rhythm no longer present Electronically Signed On 04-19-2025 19:11:15 CDT by Aki Pacheco D.O.
[2025-04-19 18:07] LABS: Hematocrit 40.2 % (42.0-52.0); Hemoglobin 12.5 g/dL (14.0-18.0); Mean Corpuscular HGB Conc 31.1 g/dl (32-36); Mean Corpuscular Hemoglobin 27.1 pg (26-34); Mean Corpuscular Volume 87.2 fl (80-100); Platelet Count Result 342 k/mm3 (150-375); Red Blood Count 4.61 M/mm3 (4.6-6.20); White Blood Count 21.6 K/mm3 (4.5-10.0)
[2025-04-19 18:19] LABS: INR 1.2; Partial Thromboplastin Time 41.8 Seconds (22.3-36.8); Prothrombin Time 15.2 Seconds (11.1-14.7)
[2025-04-19 18:20] LABS: Alanine Aminotransferase 46 U/L (6-50); Albumin Level 3.8 g/dL (3.5-5.1); Alkaline Phosphatase 119 U/L (38-126); Anion Gap 15 mmol/L (4-12); Aspartate Amino Transferase 41 U/L (17-59); Bilirubin,Total 1.1 mg/dL (0.2-1.3); Blood Urea Nitrogen 24 mg/dL (9-20); Calcium 8.7 mg/dL (8.4-10.2); Carbon Dioxide 23 mmol/L (22-30); Chloride 104 mmol/L (98-107); Estimated CRCL calculation 51 ml/min; Estimated Glomerular Filt Rate 51; Glucose 131 mg/dL (65-110); Potassium 3.0 mmol/L (3.4-5.0); Sodium 142 mmol/L (137-145); Total Protein 7.2 g/dL (6.3-8.2)
[2025-04-19 18:38] LABS: Band Neutrophils Percent 5 % (0-6); Hypochromasia 1+; Lymphocytes Absolute Manual 1.51 K/mm3 (1.1-4.5); Lymphocytes Percent Manual 7.0 % (18-44); Monocytes Absolute Manual 1.94 K/mm3 (0.1-0.90); Monocytes Percent Manual 9 % (3-9); Neutrophils Absolute Manual 18.14 K/mm3 (1.3-6.7); Neutrophils Percent Manual 79 % (46-73); Total Cells Counted 100
[2025-04-19 18:39] LABS: Anisocytosis 2+; Schistocytes None Seen
--- NOTE | 2025-04-19 19:15 | PC.NURSE ---
Received report from DEWAYNE Carreon for cont. of care. Pt lying on stretcher on 3L via NC with oxygen saturation at 97%, on cardiac catheterization technologist showing A-fib RVR HR 119-130 and AOx2 (self, place). MD Dias at bedside with family.
--- NOTE | 2025-04-19 19:28 | ED.WEAKNESS ---
HPI - Weakness General Chief complaint: Weakness Stated complaint: AMS Time Seen by Provider: 04/19/25 19:03 History of Present Illness HPI Narrative: 74-year-old male with significant past medical history including thoracic aortic aneurysm 5.8 cm, history of PE/ DVT on therapeutic Lovenox currently. Recent DVT in the right lower extremity with complications concerning for compartment syndrome requiring transfer. Patient did not have any surgical procedures at [facility] where he was transferred last month and isolated DVT was treated with anticoagulation. Patient also has history of CHF and JONAH. Patient presents to the emergency department for altered mental status and weakness. Symptoms ongoing for last 6 days but worsening over last 2 days. Currently is alert oriented times 1-2, lethargic and garbled speech. No falls or injuries. Collateral formation provided by patient's chart and family members at bedside. No history of strokes per family. Is getting therapeutic Lovenox injections at nursing facility per family and record. Related Data Home Medications ?Medication ?Instructions ?Recorded ?Confirmed ?Last Taken ?Type multivitamin 1 tablet PO DAILY 04/11/19 04/20/25 03/13/25 History metoprolol succinate 25 mg 25 mg PO DAILY 08/29/21 04/19/25 03/13/25 History tablet,extended release 24 hr (Toprol XL) rivastigmine 4.6 mg/24 hour 4.6 mg transdermal DAILY 08/29/21 04/20/25 03/13/25 History transdermal patch sacubitril 49 mg-valsartan 51 mg 1 tablet PO BID 03/18/22 04/20/25 03/13/25 History tablet (Entresto) aspirin 81 mg tablet,delayed 81 mg PO DAILY 10/25/23 04/20/25 03/13/25 History release (Adult Aspirin Regimen) Held on 04/19/25. Instructions: On Lovenox therapy rosuvastatin 40 mg tablet 40 mg PO DAILY 10/25/23 04/20/25 03/13/25 History acetaminophen 325 mg tablet 650 mg PO Q6H PRN pain 04/19/25 04/19/25 Unknown History alprazolam 0.25 mg tablet (Xanax) 0.25 mg PO BID 04/19/25 04/19/25 Unknown History enoxaparin 120 mg/0.8 mL 120 mg subcut Q12H 04/19/25 04/19/25 Unknown History subcutaneous syringe gabapentin 100 mg capsule 200 mg PO Q12H 04/19/25 04/19/25 Unknown History hydrocodone 10 mg-acetaminophen 1 tablet PO Q4H PRN pain 04/19/25 04/19/25 Unknown History 325 mg tablet buspirone 5 mg tablet 15 mg PO Q12HR 04/20/25 04/19/25 Unknown History melatonin 3 mg capsule 3 mg PO HS PRN sleep 04/20/25 04/20/25 Unknown History methocarbamol 500 mg tablet 500 mg PO Q8H PRN spasms 04/20/25 04/20/25 Unknown History naloxone 4 mg/actuation nasal 4 mg intranasal Q2-3M PRN opioid 04/20/25 04/20/25 Unknown History spray (Narcan) overdose polyethylene glycol 3350 17 gram 17 g PO DAILY 04/20/25 04/20/25 Unknown History oral powder packet (Miralax) sacubitril 24 mg-valsartan 26 mg 0.5 tablet PO BID 04/20/25 04/20/25 Unknown History tablet (Entresto) sennosides 8.6 mg-docusate sodium 1 tab-cap PO DAILY 04/20/25 04/20/25 Unknown History 50 mg tablet (2-in-1 Laxative) spironolactone 25 mg tablet 12.5 mg PO QAM 04/20/25 04/19/25 Unknown History vortioxetine 5 mg tablet 5 mg PO DAILY 04/20/25 04/20/25 Unknown History Allergies Allergy/AdvReac Type Severity Reaction Status Date / Time apricot Allergy Severe throat Verified 04/20/25 00:36 SWELLING Review of Systems Review of Systems: ROS unobtainable: Yes unobtainable due to medical condition and unobtainable due to mental status PMFSH Past Medical History Medical History Hip osteoarthritis Chronic lower back pain Left hip pain Right rib fracture Flank pain Intertrigo COVID-19 Ascending aortic aneurysm Encounter for routine adult health examination without abnormal findings Essential hypertension Gastroesophageal reflux disease without esophagitis TIA (transient ischemic attack) Depression Cognitive decline JONAH (obstructive sleep apnea) Short-term memory loss Arthritis GERD (gastroesophageal reflux disease) DVT (deep venous thrombosis) Hypercholesterolemia HTN (hypertension) Family History Family History Father Hypertension Family history of coronary artery disease Family history of heart disease in male family member before age 55 Mother Hypertension Family history of congestive heart failure Unknown Heart disease Diabetes mellitus Depression Arthritis Hypertension High cholesterol Other Family history of elevated blood lipids Social History Social History Social History: Currently lives at an Assisted Living [facility] ([place], [place]). Elects his daughter, Aislinn Beaver, as his decision maker. Code Status: Full Code. Smoking status: Former smoker Second hand tobacco smoke exposure: No Alcohol intake: former Substance use: never Substance use type: does not use Do You Feel Safe in your Home?: Yes Lack of Transportation: No Lack of Food: Never True Current Housing: I Have Housing Concerned About Future Housing: No Difficulty Paying Gas/Electric Bills: No Difficulty Paying for Meds: No Currently Unemployed: No Education: Master's Degree or Higher Difficulty w/ Childcare or Family Care: No Living arrangements: assisted living Additional living arrangements comments: [facility] [phone] Occupation/Education: retired Gender identity (if verbalized by the patient): Male Spiritual care concerns: No Exam Narrative: GENERAL: Ill-appearing, garbled speech, weak HEAD: [Normocephalic, atraumatic.] EYES: [PERRLA and EOMI.] ENT: Nares clear, no rhinorrhea or epistaxis. Mucous membranes moist. NECK: Supple. CHEST: coarse bilateral breath sounds left worse than right, no wheezing or prolonged expiratory Phase HEART: irregular rate and rhythm. Normal peripheral pulses 2+ dorsalis pedis and 2+ radial pulses with warm extremities. ABDOMEN: [Soft, nondistended], [nontender], [No rigidity or guarding] EXTREMITIES: Able to wiggle the toes and raise the arms. Global weakness appreciated. 1+ pitting edema bilaterally. Tenderness to palpation over the right calf but no asymmetry or skin breakdown. Bruising noted. SKIN: Stage 1/2 decub without signs of infection, pus or drianage NEURO: Garbled speech pattern, alert oriented to his name and occasionally location. He symmetric but global weakness appreciated on both arms and legs. No facial asymmetries. Course Vital Signs Vital signs: Vital Signs Temperature 36.5 C 04/19/25 17:26 Pulse Rate 136 H 04/19/25 17:26 Respiratory Rate 30 H 04/19/25 17:26 Blood Pressure 92/60 L 04/19/25 17:26 Pulse Oximetry 98 04/19/25 17:26 Temperature 36.8 C 04/20/25 00:11 Pulse Rate 98 04/20/25 02:00 Respiratory Rate 22 H 04/20/25 02:00 Blood Pressure 105/57 L 04/20/25 02:00 Pulse Oximetry 96 04/20/25 02:00 Oxygen Delivery Nasal Cannula 04/20/25 00:44 Oxygen Flow Rate 3 04/20/25 00:44 MDM - Weakness MDM Narrative Medical decision making narrative: 74-year-old male with significant past medical history including thoracic aortic aneurysm 5.8 cm, history of PE/ DVT on therapeutic Lovenox currently. Recent DVT in the right lower extremity with complications concerning for compartment syndrome requiring transfer. Patient did not have any surgical procedures at [facility] where he was transferred last month and isolated DVT was treated with anticoagulation. Patient also has history of CHF and JONAH. Patient presents to the emergency department for altered mental status and weakness. Symptoms ongoing for last 6 days but worsening over last 2 days. Currently is alert oriented times 1-2, lethargic and garbled speech. No falls or injuries. Collateral formation provided by patient's chart and family members at bedside. No history of strokes per family. Is getting therapeutic Lovenox injections at nursing facility per family and record. Patient is very ill appearing and has concerning vital signs including tachycardia with a regular rhythm, soft blood pressure is 90 to 100 systolic, tachypnea in the 30s and hypoxemia requiring 4 L supplemental oxygen to maintain 90%. He is afebrile 36.5. Global weakness appreciated but no he unilateral findings appreciated. Garbled speech pattern make it difficult to pin this and patient. No facial asymmetries. Coarse bilateral breath sounds. Irregular rate and rhythm concerning for AFib on the monitor but pulses felt in all 4 limbs warm extremities. Patient family states he has no history of AFib. Suspect potential stroke pathology given his mental status decline over last few days especially in the setting of anticoagulation use could be hemorrhagic stroke. Other potential possibilities such as infection or dehydration/ fluid overload versus worsening cardiomyopathy versus new onset dysrhythmia. Broad workup ordered this time. CT of the head and CT angiography of the body was ordered. Lab studies urinalysis EKG, troponin, BNP, urinalysis ordered. Chest x-ray ordered. Patient given judicious 500 cc bolus of fluid as he does have evidence of hemoconcentration and dehydration on labs so far But has significant cardiomyopathy history so we will be judicious with resuscitation. Patient given repeated 500 cc boluses with improvement in heart rate and blood pressure. Heart rate currently in the low 110 range. Still AFib on the monitor. Blood pressure between 90 and 100 systolic. On review of the EMR patient's previous blood pressures have been there on prior admissions and this is around where his baseline is. Lactic acid is negative which is reassuring. A bedside ECHOcardiogram was conducted by myself which shows a collapsed IVC with plenty of room for fluid resuscitation. No pericardial effusions. AFib with decreased ejection fraction seen. Discussed with the hospitalist initiation of amiodarone therapy at this time given his soft blood pressures and his reduced ejection fraction. Will initiate amiodarone and placed on vancomycin cefepime as he has a large leukocytosis of 21,000 with component of dehydration with elevated hemoglobin above baseline likely hemoconcentrated from decreased oral intake and dehydration. CT of the head is negative, CT angiography shows no PE, stable fusiform aneurysm that patient's family states is not going to be intervened on after multiple discussions with family members and the patient previously documented. They confirm they do not want surgery or any further eval for this. No evidence of urinary tract infection. Patient does have a low-grade fever here and given Tylenol. Will treat him for sepsis of unknown origin and dehydration at this time with new onset AFib likely reactive to infectious process. Patient getting therapuetic Lovenox injections at his facility for recent DVT, trop mildly elevated here without AR/STD so he was given 1 milligram/kilogram b.i.d. dosing Lovenox here for anticoagulation. Head CT shows no bleed. Vaughan placed. Discussed with the hospitalist for admission at this time and patient was accepted to the IMU for continued care of presumed sepsis and new onset AFib. Medical Records Attestation: I reviewed the patient's medical records. Lab Data Attestation: I reviewed the patient's lab results. 04/19/25 17:57 04/19/25 17:57 Labs: Lab Results 04/19/25 04/19/25 04/19/25 Range/Units 17:57 18:00 19:49 WBC 21.6 H (4.5-10.0) K/mm3 RBC 4.61 (4.6-6.20) M/mm3 Hgb 12.5 L D (14.0-18.0) g/dL Hct 40.2 L (42.0-52.0) % MCV 87.2 (80-100) fl MCH 27.1 (26-34) pg MCHC 31.1 L (32-36) g/dl RDW 16.0 H (11.5-14.5) % Plt Count 342 (150-375) k/mm3 MPV 9.7 (7.4-10.4) fl Immature Gran % (Auto) Not Reportable Neut % (Auto) Not Reportable Lymph % (Auto) Not Reportable Door % (Auto) Not Reportable Eos % (Auto) Not Reportable Baso % (Auto) Not Reportable Lymph # (Auto) Not Reportable Door # (Auto) Not Reportable Eos # (Auto) Not Reportable Baso # (Auto) Not Reportable Abs Immat Gran (auto) Not Reportable Absolute Neuts (auto) Not Reportable Absolute Nucleated RBC Not Reportable Total Counted 100 Neutrophils % (Manual) 79 H (46-73) % Band Neutrophils % 5 (0-6) % Lymphocytes % (Manual) 7.0 L (18-44) % Monocytes % (Manual) 9 (3-9) % Nucleated RBC % Not Reportable Abs Neuts (Manual) 18.14 H (1.3-6.7) K/mm3 Abs Lymphs (Manual) 1.51 (1.1-4.5) K/mm3 Abs Monocytes (Manual) 1.94 H (0.1-0.90) K/mm3 Platelet Estimate Adequate (Adequate) Hypochromasia 1+ Anisocytosis 2+ Schistocytes None seen PT 15.2 H (11.1-14.7) Seconds INR 1.2 APTT 41.8 H (22.3-36.8) Seconds Sodium 142 (137-145) mmol/L Potassium 3.0 L (3.4-5.0) mmol/L Chloride 104 (98-107) mmol/L Carbon Dioxide 23 (22-30) mmol/L Anion Gap 15 H (4-12) mmol/L BUN 24 H (9-20) mg/dL Creatinine 1.36 H (0.7-1.3) mg/dL Estim Creat Clear Calc 51 ml/min Estimated GFR 51 L (59 - ) Glucose 131 H (65-110) mg/dL Lactic Acid 1.8 (0.7-2.0) mmol/L Calcium 8.7 (8.4-10.2) mg/dL Total Bilirubin 1.1 (0.2-1.3) mg/dL AST 41 (17-59) U/L ALT 46 (6-50) U/L Alkaline Phosphatase 119 (38-126) U/L Troponin I (0.000-0.034) ng/mL NT-Pro-B Natriuret Pep 3820 H (19.9-100) pg/mL Total Protein 7.2 (6.3-8.2) g/dL Albumin 3.8 (3.5-5.1) g/dL Urine Color Dark yellow (Yellow) Urine Appearance Turbid H (Clear) Urine pH 5.5 (5.0-9.0) Ur Specific [place] 1.022 (1.001-1.035) Urine Protein 3+ H (Negative) mg/dL Urine Glucose (UA) Negative (Negative) mg/dL Urine Ketones 1+ H (Negative) mg/dL Ur Blood (Man) 2+ H (Negative) Urine Nitrate Negative (Negative) Urine Bilirubin Negative (Negative) Urine Urobilinogen 1.0 (<2.0) mg/dL Leukocyte Esterase Rfl Negative (Negative) VANESSA/UL Urine RBC 0-2 (0-2) /hpf Urine WBC 0-5 (0-3) /hpf Ur Squamous Epith Cells Many H (Few) /hpf Urine Bacteria None seen /hpf Urine Casts >20 Granular Casts Present (None) /lpf 10/30/25 Range/Units 20:02 WBC (4.5-10.0) K/mm3 RBC (4.6-6.20) M/mm3 Hgb (14.0-18.0) g/dL Hct (42.0-52.0) % MCV (80-100) fl MCH (26-34) pg MCHC (32-36) g/dl RDW (11.5-14.5) % Plt Count (150-375) k/mm3 MPV (7.4-10.4) fl Immature Gran % (Auto) Neut % (Auto) Lymph % (Auto) Door % (Auto) Eos % (Auto) Baso % (Auto) Lymph # (Auto) Door # (Auto) Eos # (Auto) Baso # (Auto) Abs Immat Gran (auto) Absolute Neuts (auto) Absolute Nucleated RBC Total Counted Neutrophils % (Manual) (46-73) % Band Neutrophils % (0-6) % Lymphocytes % (Manual) (18-44) % Monocytes % (Manual) (3-9) % Nucleated RBC % Abs Neuts (Manual) (1.3-6.7) K/mm3 Abs Lymphs (Manual) (1.1-4.5) K/mm3 Abs Monocytes (Manual) (0.1-0.90) K/mm3 Platelet Estimate (Adequate) Hypochromasia Anisocytosis Schistocytes PT (11.1-14.7) Seconds INR APTT (22.3-36.8) Seconds Sodium (137-145) mmol/L Potassium (3.4-5.0) mmol/L Chloride (98-107) mmol/L Carbon Dioxide (22-30) mmol/L Anion Gap (4-12) mmol/L BUN (9-20) mg/dL Creatinine (0.7-1.3) mg/dL Estim Creat Clear Calc ml/min Estimated GFR (59 - ) Glucose (65-110) mg/dL Lactic Acid (0.7-2.0) mmol/L Calcium (8.4-10.2) mg/dL Total Bilirubin (0.2-1.3) mg/dL AST (17-59) U/L ALT (6-50) U/L Alkaline Phosphatase (38-126) U/L Troponin I 0.050 H* (0.000-0.034) ng/mL NT-Pro-B Natriuret Pep (19.9-100) pg/mL Total Protein (6.3-8.2) g/dL Albumin (3.5-5.1) g/dL Urine Color (Yellow) Urine Appearance (Clear) Urine pH (5.0-9.0) Ur Specific [place] (1.001-1.035) Urine Protein (Negative) mg/dL Urine Glucose (UA) (Negative) mg/dL Urine Ketones (Negative) mg/dL Ur Blood (Man) (Negative) Urine Nitrate (Negative) Urine Bilirubin (Negative) Urine Urobilinogen (<2.0) mg/dL Leukocyte Esterase Rfl (Negative) VANESSA/UL Urine RBC (0-2) /hpf Urine WBC (0-3) /hpf Ur Squamous Epith Cells (Few) /hpf Urine Bacteria /hpf Urine Casts Granular Casts (None) /lpf Imaging Data Attestation: I personally reviewed and interpreted this imaging study as follows: My impression: Impressions Chest X-Ray 04/19/25 18:25 IMPRESSION: 1. Suspect left perihilar airspace disease. Can consider PA and lateral films with deep inspiration. Head CT 04/19/25 20:34 IMPRESSION: No acute intracranial hemorrhage or extra axial fluid collections. All CT scans at this facility are performed using low dose modulation techniques as appropriate to perform exam including the following: automated exposure control; use of iterative reconstruction technique; adjustment of the mA and/or kV according to patient size (this includes techniques or standardized protocols for targeted exams where dose is matched to indication/reason for exam). Chest/Abdomen/Pelvis CTA 04/19/25 20:37 IMPRESSION: CHEST- 1. Mildly enlarged lymph nodes left axilla. Malignancy not excluded. 2. 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 Recommend surgical consultation. 3. No PE or other acute cardiopulmonary findings. ABDOMEN/PELVIS- 1. No acute abdominopelvic findings. Critical Care Time Critical Care Time Critical Care Time: Yes Total Critical Care Time: 90 Discharge Plan Discharge Clinical Impression: AMS (altered mental status), Sepsis, New onset a-fib, Generalized weakness, Acute dehydration, History of deep vein thrombosis Patient Disposition: Still a Patient Condition: Guarded Prognosis Time of Disposition: 22:52
[2025-04-19 19:39] LABS: NT Pro B Type Natriuretic Pept 3820 pg/mL (19.9-100)
--- NOTE | 2025-04-19 20:09 | PC.NURSE ---
Pt taken to imaging
[2025-04-19 20:17] LABS: Add Urine Microscopic? YES; Appearance Urine Turbid (Clear); Glucose Urine UA Negative (Negative); Leukocyte Esterase Ur Negative LEU/UL (Negative); Nitrate Urine Negative (Negative); Non Pathogenic Casts >20; Specific Grav Ur 1.022 (1.001-1.035)
[2025-04-19 20:38] LABS: Troponin I 0.050 ng/mL (0.000-0.034)
[2025-04-19] MEDS: LACTATED RINGERS 500 ML 999 ML IV CONT ×5 (20:39→23:01)
[2025-04-19] MEDS: CEFEPIME 2 GM in SODIUM CHLORIDE 0.9% IV 50 ML 100 ML IVPB (21:58)
[2025-04-19] MEDS: ACETAMINOPHEN 500 MG TABLET 1000 MG PO (22:02)
[2025-04-19] MEDS: ENOXAPARIN 120 MG/0.8 ML SYRINGE 109 MG SUB-Q (22:19)
--- NOTE | 2025-04-19 23:20 | WNDPHOTO ---
PHOTO ONLY - See Nursing Notes and/ or assessments for documentation.
[2025-04-19] MEDS: VANCOMYCIN 1,250 MG/NS 250 ML 1,250 MG/250 ML BAG 166.67 MG IVPB (23:39)
[2025-04-20] VITALS (23 sets, daily range): BP systolic 91–172; BP diastolic 48–82; PULSE 81–112; RESP 20–24; TEMP 36.6–37.9; O2SAT 95–100; BMI 35.2
--- NOTE | 2025-04-20 00:35 | ADMGEN ---
This patient, Og Beaver, was admitted to IMU Room 232-01. Patient/family oriented to hospital policies and general routines including ID bracelet, bed and alarms, visiting hours, pain management, procedures, bathroom and other care routines, personal items, smoking policy, room service/diet, and visiting hours. Information on how to activate the Rapid Response Team has been discussed. Patient/Family are encouraged to report perceived risks to care and to ask questions if they do not understand what they are told or what they should do.
[2025-04-20] MEDS: VANCOMYCIN 1,250 MG/NS 250 ML 1,250 MG/250 ML BAG 166.67 MG IVPB (01:10)
--- NOTE | 2025-04-20 04:16 | PM.IMHP ---
H&P: HPI History of Present Illness Date/Time: 04/20/25 04:16 Chief Complaint: Weakness Narrative: This is a 74-year-old male patient who had recently was transferred to [facility] on 03/19/2025 for concerned compartment syndrome with the DVT. No intervention was performed at that time. He is at [facility]. The patient is currently on subQ Lovenox. Has history of sleep apnea and congestive heart failure. The patient was brought to the emergency room for altered mental status and weakness his symptoms have been ongoing for 6 days but recently worsened over the last 2 days. The patient is only orientated to himself and has garbled speech. His family was at the bedside earlier but have left since ER. His white count is noted to be 21.6. His H&H is 12.5 and 40.2 but above his baseline. His BUN is 24 which is near his baseline. And a creatinine of 1.36 with a normal baseline. His troponin is 0.050. His BNP was noted to be 3820. Urine has 3+ protein, 1+ ketones, 2+ blood. His potassium was 3.0. His EKG was read as AFib with RVR. His blood pressure was 105/57. He was started on an amiodarone drip. Head CT was read as no acute intracranial hemorrhage or extra axillo florid collections. Chest x-ray was read as suspect left hip perihilar airspace disease. Consider PA and lateral films with deep inspiration. CTA was read as1. Mildly enlarged lymph nodes left axilla. Malignancy not excluded. 2. 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 Recommend surgical consultation. 3. No PE or other acute cardiopulmonary findings. The patient was started on cefepime and vancomycin. The patient is being admitted to observation status on the date of service of 04/20/2025 Review of Systems Review of Systems: ROS unobtainable: Yes unobtainable due to medical condition and unobtainable due to mental status Constitutional: Constitutional: Reports as per HPI Eyes: Eyes: Reports as per HPI and Reports no additional eye complaints ENT: Reports Normal hearing present Cardiovascular: Cardiovascular: Reports no additional cardiovascular complaints Respiratory: Respiratory: Reports as per HPI Gastrointestinal: Gastrointestinal: Reports as per HPI and Reports no additional gastrointestinal complaints Musculoskeletal: Musculoskeletal: Reports no additional musculoskeletal complaints Integumentary/Breasts: Skin/Breast: Reports system reviewed and no additional complaints, except as docu Neurologic: Reports system reviewed and no additional complaints, except as documented and Reports Normal hearing present Psychiatric: Psychiatric: Reports no additional psychiatric complaints and Reports as per HPI Hematologic/Lymphatic: Hematologic/Lymphatic: Reports no additional hematologic/lymphatic complaints Allergic/Immunologic: Allergic/Immunologic: Reports no additional allergic/immunologic complaints [facility] Past Medical History Medical History (Updated 04/20/25 @ 11:01 by Noelle Graham APRN) Hip osteoarthritis Chronic lower back pain Left hip pain Right rib fracture Flank pain Intertrigo COVID-19 Ascending aortic aneurysm Encounter for routine adult health examination without abnormal findings Essential hypertension Gastroesophageal reflux disease without esophagitis TIA (transient ischemic attack) Depression Cognitive decline JONAH (obstructive sleep apnea) Short-term memory loss Arthritis GERD (gastroesophageal reflux disease) DVT (deep venous thrombosis) Hypercholesterolemia HTN (hypertension) Surgical History Surgical History (Updated 04/20/25 @ 04:54 by Ana Lowe APRN) H/O local excision of skin lesion H/O inguinal hernia repair H/O vein stripping History of tonsillectomy Family History Family History Father Hypertension Family history of coronary artery disease Family history of heart disease in male family member before age 55 Mother Hypertension Family history of congestive heart failure Unknown Heart disease Diabetes mellitus Depression Arthritis Hypertension High cholesterol Other Family history of elevated blood lipids Social History Social History (Updated 04/20/25 @ 04:57 by Ana Lowe APRN) Social History: [facility] of [facility]. He is . Elects his daughter, Aislinn Beaver, as his decision maker. Code Status: Full Code. Smoking status: Former smoker Second hand tobacco smoke exposure: No Alcohol intake: former Substance use: never Substance use type: does not use Do You Feel Safe in your Home?: Yes Lack of Transportation: No Lack of Food: Never True Current Housing: I Have Housing Concerned About Future Housing: No Difficulty Paying Gas/Electric Bills: No Difficulty Paying for Meds: No Currently Unemployed: No Education: Master's Degree or Higher Difficulty w/ Childcare or Family Care: No Living arrangements: assisted living Occupation/Education: retired Gender identity (if verbalized by the patient): Male Spiritual care concerns: No Meds Home Medications and Allergies Home Medications ?Medication ?Instructions ?Recorded ?Confirmed ?Type multivitamin 1 tablet PO DAILY 04/11/19 04/20/25 History mirtazapine 15 mg tablet 15 mg PO DAILY #1 tablet 11/22/20 04/20/25 Rx empagliflozin 10 mg tablet 10 mg PO DAILY #30 tabs 08/03/21 04/20/25 Rx (Jardiance) polysaccharide iron complex 150 mg See Rx Instructions .Route 08/22/21 04/20/25 Rx iron capsule (Ferrex) .COMPLEX #180 caps metoprolol succinate 25 mg 25 mg PO DAILY 08/29/21 04/19/25 History tablet,extended release 24 hr (Toprol XL) rivastigmine 4.6 mg/24 hour 4.6 mg transdermal DAILY 08/29/21 04/20/25 History transdermal patch sacubitril 49 mg-valsartan 51 mg 1 tablet PO BID 03/18/22 04/20/25 History tablet (Entresto) lansoprazole 30 mg capsule,delayed 30 mg PO DAILY #90 caps 10/02/22 04/20/25 Rx release apixaban 5 mg tablet (Eliquis) 5 mg PO Q12H #60 tabs 05/28/23 04/20/25 Rx Held on 04/19/25. Instructions: taking Lovenox aspirin 81 mg tablet,delayed 81 mg PO DAILY 10/25/23 04/20/25 History release (Adult Aspirin Regimen) Held on 04/19/25. Instructions: On Lovenox therapy rosuvastatin 40 mg tablet 40 mg PO DAILY 10/25/23 04/20/25 History acetaminophen 325 mg tablet 650 mg PO Q6H PRN pain 04/19/25 04/19/25 History alprazolam 0.25 mg tablet (Xanax) 0.25 mg PO BID 04/19/25 04/19/25 History enoxaparin 120 mg/0.8 mL 120 mg subcut Q12H 04/19/25 04/19/25 History subcutaneous syringe gabapentin 100 mg capsule 200 mg PO Q12H 04/19/25 04/19/25 History hydrocodone 10 mg-acetaminophen 1 tablet PO Q4H PRN pain 04/19/25 04/19/25 History 325 mg tablet buspirone 5 mg tablet 15 mg PO Q12HR 04/20/25 04/19/25 History melatonin 3 mg capsule 3 mg PO HS PRN sleep 04/20/25 04/20/25 History methocarbamol 500 mg tablet 500 mg PO Q8H PRN spasms 04/20/25 04/20/25 History naloxone 4 mg/actuation nasal 4 mg intranasal Q2-3M PRN opioid 04/20/25 04/20/25 History spray (Narcan) overdose polyethylene glycol 3350 17 gram 17 g PO DAILY 04/20/25 04/20/25 History oral powder packet (Miralax) sacubitril 24 mg-valsartan 26 mg 0.5 tablet PO BID 04/20/25 04/20/25 History tablet (Entresto) sennosides 8.6 mg-docusate sodium 1 tab-cap PO DAILY 04/20/25 04/20/25 History 50 mg tablet (2-in-1 Laxative) spironolactone 25 mg tablet 12.5 mg PO QAM 04/20/25 04/19/25 History vortioxetine 5 mg tablet 5 mg PO DAILY 04/20/25 04/20/25 History Allergies Allergy/AdvReac Type Severity Reaction Status Date / Time apricot Allergy Severe throat Verified 04/20/25 00:36 SWELLING Vital Signs Vital Signs - 24 hr 04/19/25 17:26 04/19/25 18:41 04/19/25 19:02 Temperature 97.7 F Pulse Rate 136 H Respiratory Rate 30 H Blood Pressure 92/60 L 119/61 104/73 Pulse Oximetry 98 98 100 Oxygen Delivery Oxygen Flow Rate 04/19/25 19:11 04/19/25 19:22 04/19/25 19:31 Temperature Pulse Rate 119 H 129 H 126 H Respiratory Rate 18 20 20 Blood Pressure 105/66 97/65 L 94/69 L Pulse Oximetry 98 Oxygen Delivery Oxygen Flow Rate 04/19/25 19:53 04/19/25 20:37 04/19/25 20:37 Temperature 99.7 F H Pulse Rate 111 H 113 H 132 H Respiratory Rate 19 26 H 17 Blood Pressure 103/67 108/70 108/70 Pulse Oximetry 97 100 Oxygen Delivery Oxygen Flow Rate 04/19/25 20:41 04/19/25 20:51 04/19/25 21:01 Temperature Pulse Rate 114 H 116 H 133 H Respiratory Rate 16 20 20 Blood Pressure 100/68 117/61 101/55 L Pulse Oximetry 99 100 Oxygen Delivery Oxygen Flow Rate 04/19/25 21:14 04/19/25 21:21 04/19/25 21:22 Temperature Pulse Rate 129 H 125 H 133 H Respiratory Rate 14 16 21 H Blood Pressure 90/70 L 101/68 Pulse Oximetry 99 100 100 Oxygen Delivery Oxygen Flow Rate 04/19/25 21:30 04/19/25 21:31 04/19/25 21:35 Temperature Pulse Rate 122 H 122 H 114 H Respiratory Rate 18 18 21 H Blood Pressure 76/56 L 89/61 L Pulse Oximetry 100 100 100 Oxygen Delivery Oxygen Flow Rate 04/19/25 21:37 04/19/25 21:41 04/19/25 21:55 Temperature Pulse Rate 120 H 119 H 131 H Respiratory Rate 17 17 21 H Blood Pressure 106/64 100/57 L 89/62 L Pulse Oximetry 100 Oxygen Delivery Oxygen Flow Rate 04/19/25 21:59 04/19/25 22:00 04/19/25 22:01 Temperature Pulse Rate 120 H 130 H 120 H Respiratory Rate 17 20 12 Blood Pressure 86/68 L 85/67 L Pulse Oximetry Oxygen Delivery Oxygen Flow Rate 04/19/25 22:04 04/19/25 22:08 04/19/25 22:11 Temperature Pulse Rate 124 H 116 H 126 H Respiratory Rate 21 H 17 20 Blood Pressure 86/66 L 88/54 L 92/47 L Pulse Oximetry 100 100 Oxygen Delivery Oxygen Flow Rate 04/19/25 22:21 04/19/25 22:56 04/19/25 23:38 Temperature Pulse Rate 124 H 112 H 114 H Respiratory Rate 23 H Blood Pressure 91/54 L 104/70 96/59 L Pulse Oximetry Oxygen Delivery Oxygen Flow Rate 04/20/25 00:00 04/20/25 00:11 04/20/25 00:44 Temperature 98.2 F Pulse Rate 108 H 106 H 106 H Respiratory Rate 20 20 Blood Pressure 96/59 L Pulse Oximetry 99 99 Oxygen Delivery Nasal Cannula Oxygen Flow Rate 3 04/20/25 02:00 04/20/25 02:00 04/20/25 02:00 Temperature Pulse Rate 98 98 98 Respiratory Rate 22 H Blood Pressure 105/57 L 105/57 L Pulse Oximetry 96 Oxygen Delivery Oxygen Flow Rate Exam Const: General: cooperative, no acute distress, well developed, awake, Physically active, average body habitus and well nourished Nutritional Appearance: average body habitus and well nourished Orientation/consciousness: oriented to person HENMT: Head: normal to inspection, No palpable skull fracture present and normocephalic Eyes: General: appearance normal, both eyes and all related structures Alignment and Position: alignment normal Periorbital: periorbital findings normal Eyelids: eyelids normal Conjunctivae: conjunctivae normal Sclera: sclerae normal Cornea: corneas normal Pupils: Equal, round and reactive pupils present and Pupil accommodation reflex normal EOM: EOMs intact bilaterally Neck: Neck: normal visual inspection Chest: Chest palpation & inspection: normal inspection of the chest Resp: Effort & Inspection: normal respiratory effort Auscultation: clear to auscultation bilaterally Cardio: Palpation: normal PMI Rate: regular rate Rhythm: regular rhythm Heart sounds: S1 normal heart sound present and S2 normal heart sound present Peripheral pulses: Peripheral pulses 2+ throughout GI: Inspection: normal to inspection Percussion: Yes normal to percussion Auscultation: normal bowel sounds Rectal Exam: deferred Back/Spine/Pelvis: Thoracic/Lumbar Spine: thoracic and lumbar spine normal to inspection Skin: General skin exam: normal color Lesions: no lesions Rashes: no rashes Trauma: no lacerations or abrasions Wounds: no wounds Hair: normal Nails: normal Neuro: General: oriented to person Extrem: General: normal to inspection Right upper extremity: normal to inspection and shoulder/upper arm Left upper extremity: normal to inspection and shoulder/upper arm Right lower extremity: normal to inspection Left lower extremity: normal to inspection Psych: Appearance: grossly normal Mental Status: mental status grossly normal H&P: Results Labs Labs: Short CBC 04/19/25 Range/Units 17:57 WBC 21.6 H (4.5-10.0) K/mm3 Hgb 12.5 L D (14.0-18.0) g/dL Hct 40.2 L (42.0-52.0) % Plt Count 342 (150-375) k/mm3 BMP 04/19/25 17:57 Sodium 142 Potassium 3.0 L Chloride 104 Carbon Dioxide 23 BUN 24 H Creatinine 1.36 H Glucose 131 H Calcium 8.7 Cardiac Enzymes 04/19/25 Range/Units 20:02 Troponin I 0.050 H* (0.000-0.034) ng/mL Liver Function 04/19/25 Range/Units 17:57 Total Bilirubin 1.1 (0.2-1.3) mg/dL AST 41 (17-59) U/L ALT 46 (6-50) U/L Alkaline Phosphatase 119 (38-126) U/L Albumin 3.8 (3.5-5.1) g/dL Urine 04/19/25 Range/Units 19:49 Urine Color Dark yellow (Yellow) Urine Appearance Turbid H (Clear) Urine pH 5.5 (5.0-9.0) Ur Specific [place] 1.022 (1.001-1.035) Urine Protein 3+ H (Negative) mg/dL Urine Glucose (UA) Negative (Negative) mg/dL ECG Interpretation: Test Date: 2025-04-19 17:40:21 Measurements Intervals [place] Rate: 135 P: 0 WV: 0 QRS: -49 QRSD: 114 T: 4 QT: 329 QTc: 494 Interpretive Statements ATRIAL FIBRILLATION WITH RAPID VENTRICULAR RESPONSE VOLTAGE CRITERIA FOR LVH CONSIDER ANTERIOR INFARCT, AGE INDETERMINATE INFERIOR INFARCT, AGE INDETERMINATE ABNORMAL ECG Compared to ECG 03/13/2025 17:58:14 Sinus rhythm no longer present Electronically Signed On 04-19-2025 19:11:15 CDT by Aki Pacheco D.O. Imaging CT scan - chest: Radiologist's impression: ITS Impressions Chest X-Ray 04/19/25 18:25 IMPRESSION: 1. Suspect left perihilar airspace disease. Can consider PA and lateral films with deep inspiration. Head CT 04/19/25 20:34 IMPRESSION: No acute intracranial hemorrhage or extra axial fluid collections. All CT scans at this facility are performed using low dose modulation techniques as appropriate to perform exam including the following: automated exposure control; use of iterative reconstruction technique; adjustment of the mA and/or kV according to patient size (this includes techniques or standardized protocols for targeted exams where dose is matched to indication/reason for exam). Chest/Abdomen/Pelvis CTA 04/19/25 20:37 IMPRESSION: CHEST- 1. Mildly enlarged lymph nodes left axilla. Malignancy not excluded. 2. 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 Recommend surgical consultation. 3. No PE or other acute cardiopulmonary findings. ABDOMEN/PELVIS- 1. No acute abdominopelvic findings. Assessment and Plan Assessment and plan (1) New onset a-fib: Code(s): I48.91 - Unspecified atrial fibrillation Status: Acute Assessment and Plan: - new onset of AFib. -the patient was placed on amiodarone drip. -an echo has been ordered. -Cardiology consult greatly be appreciated -the patient has already been on Lovenox. -Isai Vasc score is 5. (2) Congestive heart failure: Qualifiers: Heart failure chronicity: chronic Heart failure type: combined systolic and diastolic Qualified Code(s): I50.42 - Chronic combined systolic (congestive) and diastolic (congestive) heart failure Code(s): I50.9 - Heart failure, unspecified Status: Acute Assessment and Plan: -echo has been ordered. -last echo was 05/28/2023 with an EF of 50-55%. -his Entresto has been on hold at this time as he is not awake enough to take p.o. medications. -resume spironolactone when patient is able to take p.o. well -troponin is 0.050 which could be elevated from heart failure or from the AFib RVR. Continue to monitor troponins. demand ischemia ? (3) HTN (hypertension): Qualifiers: Hypertension type: essential hypertension Qualified Code(s): I10 - Essential (primary) hypertension Code(s): I10 - Essential (primary) hypertension Status: Acute Assessment and Plan: -the patient is currently on amiodarone. -Entresto is on hold at this time -his current blood pressure is 103/54. (4) Mixed hyperlipidemia: Code(s): E78.2 - Mixed hyperlipidemia Status: Acute Assessment and Plan: -patient is not awake enough to take p.o. medication at this time. Resume home medication of rosuvastatin when able. (5) History of deep vein thrombosis: Code(s): Z86.718 - Personal history of other venous thrombosis and embolism Status: Acute Assessment and Plan: -weight based Lovenox for DVT and he has a history of PEs as well. He is currently in AFib as well. (6) Hodgkin's lymphoma, adult: Code(s): C81.90 - Hodgkin lymphoma, unspecified, unspecified site Status: Acute Assessment and Plan: -Hematology-Oncology consultation would greatly be appreciated. His CT scan does show slightly enlarged axillary lymph node. Malignancy not excluded. (7) Leukocytosis: Code(s): D72.829 - Elevated white blood cell count, unspecified Status: Acute Assessment and Plan: -his white count is up to 21.6. -blood cultures are pending -the patient was empirically started on cefepime and vancomycin. -hematology/oncology has been consulted as well. -daily CBCs (8) JONAH (obstructive sleep apnea): Code(s): G47.33 - Obstructive sleep apnea (adult) (pediatric) Status: Acute Assessment and Plan: -home settings for CPAP/BiPAP Quality VTE Prophylaxis VTE prophylaxis: pharmacologic ordered
[2025-04-20 04:53] LABS: Estimated CRCL calculation 58 ml/min; Estimated Glomerular Filt Rate 60
[2025-04-20] MEDS: KCL 20 MEQ/SW 100 ML 100 ML 50 MEQ IVPB (05:08)
[2025-04-20 05:51] LABS: Magnesium 1.8 mg/dL (1.6-2.3)
--- NOTE | 2025-04-20 06:00 | ECHO_ITS ---
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 Staff Referring Physician: Scott Cooper Player Services Representative: Albertina Haddad Attending Provider: Ananth Qiu Contrast/Agitated Saline Contrast/Ag. Saline: Definity Amount: 2.00 ml Administered By: Albertina Haddad Existing IV Access: Yes IV Access Condition: patent with no signs of infiltration Summary 1. Technically challenging echocardiogram, definity contrast utilized. 2. Normal appearing LV size and preserved systolic contractility ejection fraction 60-65%. 3. Sclerotic aortic valve which is not functionally stenotic. 4. Atrial fibrillation. Left Ventricle Left ventricular chamber dimension is normal. Left ventricular systolic function is normal, estimated at 60-65. The left ventricular diastolic function is indeterminate. Right Ventricle Right ventricular chamber dimension is normal. Left Atria Left atrial chamber dimension is normal. Right Atria Right atrial chamber dimension is normal. Aortic Valve The aortic valve is trileaflet. There is mild aortic valve sclerosis. Pulmonic Valve The pulmonic valve is not well visualized. Mitral Valve The mitral valve has normal leaflets. Tricuspid Valve The tricuspid valve leaflets are not well visualized. Pericardium/Pleural The pericardium appears normal. Aorta The aortic root size at the sinus of Valsalva is normal. Left Ventricular Outflow Tract Name Value Normal LVOT 2D LVOT Diameter 2.0 cm LVOT Doppler LVOT Peak Velocity 103 cm/s LVOT Peak Gradient 4 mmHg LVOT Mean Gradient 2 mmHg LVOT VTI 14 cm LVOT VTI/AV VTI Ratio 0.5 LVOT Stroke Volume 42 ml LVOT CO 4.1 l/min LVOT CI 1.8 l/min/m2 Pulmonic Valve Name Value Normal RVOT Doppler RVOT Peak Velocity 62 cm/s RVOT Peak Gradient 2 mmHg PV Doppler PV Peak Velocity 138 cm/s PV Peak Gradient 5 mmHg Mitral Valve Name Value Normal MV Diastolic Function MV E Peak Velocity 96 cm/s MV A Peak Velocity 141 cm/s MV E/A 0.7 MV Decel Time (PW) 179 ms MV Annular TDI MV E/e' (Septal) 15.9 MV E/e' (Lateral) 10.3 MV E/e' (Average) 13.1 Tricuspid Valve Name Value Normal TV Annular TDI TV Lateral Holly s' Velocity 9.9 cm/s >=9.5 Aortic Valve Name Value Normal AV Doppler AV Peak Velocity 221 cm/s AV Peak Gradient 20 mmHg AV Mean Gradient 8 mmHg AV VTI 28 cm AV Area (Cont Eq VTI) 1.5 cm2 >=3.0 AV Area (Cont Eq Naseem) 1.4 cm2 AV DI (Naseem) 0.47 AV Regurgitation 2D LVOT Area 3.1 cm2 Ventricles Name Value Normal LV Dimensions 2D/MM IVS Diastolic Thickness (2D) 0.9 cm 0.6-1.0 LVID Diastole (2D) 5.7 cm 4.2-5.8 LVIW Diastolic Thickness (2D) 0.9 cm 0.6-1.0 LVID Systole (2D) 4.0 cm 2.5-4.0 LVOT Diameter 2.0 cm LV Mass (2D Cubed) 209.74 g 88.00-224.00 LV Mass Index (2D Cubed) 90 g/m2 49-115 Relative Wall Thickness (2D) 0.32 <=0.42 LV Fractional Shortening/Ejection Fraction 2D/MM LV Fractional Shortening (2D) 31 % 25-43 LV EF (2D Teichholz) 58 % LV Diastolic Volume (4C MOD) 136 ml LV EF (4C MOD) 59 % LV Diastolic Volume (2C MOD) 95 ml LV EF (2C MOD) 58 % LV Diastolic Volume (BP MOD) 114 ml 62-150 LV Diastolic Volume Index (BP MOD) 49 ml/m2 34-74 LV Systolic Volume (BP MOD) 51 ml 21-61 LV Systolic Volume Index (BP MOD) 22 ml/m2 11-31 LV EF (BP MOD) 56 % 52-72 LV Diastolic Length (4C) 9.8 cm LV Systolic Length (4C) 8.3 cm LV Stroke Volume (4C MOD) 80 ml Atria Name Value Normal LA Dimensions LA Volume (4C A-L) 93 ml RA Dimensions RA Area (4C) 15.5 cm2 <=18.0 Report Signatures
[2025-04-20 06:06] LABS: Troponin I 0.049 ng/mL (0.000-0.034)
[2025-04-20] MEDS: SODIUM CHLORIDE 0.9% IV 250 ML 25 ML IV CONT (06:29)
--- NOTE | 2025-04-20 08:54 | PCSTNOTE ---
Please refer to the Bedside Swallow Evaluation in the EMR. Please note, silent aspiration cannot be ruled out at bedside. The patient is a 74 year old male admitted with AMS and slurred speech. Orders received from the physician to complete a BSE and r/o aspiration risk. The patient was positioned upright and presented the following consistencies: 1 ice chip trial, 1 3 mil/tsp thin, 3 mil tsp pudding. Oral Stage: The patient has noted slurred speech with limited lingual ROM and labial closure. When presented single ice chip, 3 mil/tsp thin, and 3 mil tsp pudding the patient appeared unable to form or move the bolus posteriorly along the tongue base for performing a swallow regardless of thickness or tongue placement. Did not see patient perform any swallow response regardless of texture. Residual noted in anterior sulcus. Patient was unable to clear. STUDENT EDUCATION SPECIALIST completed a finger sweep to clear the bolus. Recommend NPO and MBS.
--- OUTSIDE RECORDS SUMMARY | 2025-04-20 09:20 | XMS_ITS | Encounter Summary ---
Author Organization [facility] Facility Care Team Providers Care Sprinkler Installer Name Role Phone Darvin Antunez MD Primary Care Provider [phone] Mike Yu MD Primary Care Provider [phone] Daily, Mango Meadows MD Unavailable [phone] Leo Childs MD Unavailable Nathaniel Suarez DO Primary Care Provider [phone] Thien Lund MD Primary Care Provider [phone] Encounter Details Date Type Department Care Team (Latest Contact Info) Description 04/12/2018 Orders Only [facility] ProviderShereen MD [address] [place] [id number] Social History Tobacco Use Types Packs/Day Years Used Date Smoking Tobacco: Never Assessed Sex and Gender Information Value Date Recorded Sex Assigned at Not on file Legal Sex Male 9:52 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 Gender Identity Not on file Sexual Orientation [...] on filedocumented in this encounter Care Teams Sprinkler Installer Relationship Specialty Start Date End Date Darvin Antunez MD PCP - General Internal Medicine 06/21/17 02/12/20 Mike Yu MD [address] [place] [address] PCP - General Internal Medicine 02/13/20 03/10/22 Nathaniel Suarez DO [address] [place] [address] PCP - General Internal Medicine 03/11/22 07/13/23 Thien Lund MD [address] [place] [address] PCP - General Family Practice 07/14/23 Dianne, Mango Meadows MD [address] [place] [address] Referring Physician Cardiothoracic Surgery 02/13/2010/20/21 Leo Childs MD [address] [place] [address] Dressmaker Or Tailor Cardiology 10/21/21 documented as of this encounter
--- OUTSIDE RECORDS SUMMARY | 2025-04-20 09:20 | XMS_ITS | Clinical Summary ---
Author Organization [facility] Address [address] [place] [address] Care Team Providers Care Meal Attendant Name Role Phone Thien Lund MD Primary Care Provider [phone] Allergies Active Allergy Reactions Criticality Noted Date Comments Apricot Swelling Medium 06/18/2016 Apricot Flavor Swelling Medium 06/18/2016 Apricot Kernel Oil Swelling Medium 06/18/2016 Medications vortioxetine (TRINTELLIX,EVANS NTELLIX) 20 mg tablet Take 5 mg by mouth daily. Active lansoprazole (PREVACID) 30 mg Capsule, Delayed Release(E.C.) Take 30 mg by mouth daily. Active busPIRone (BUSPAR) 15 mg Tablet Take 15 mg by mouth 2 times daily . 12/07/19 18 Active Iron Polysacch Eruiopm-K29-DO (POLY-IRON 150 FORTE) 150-25-1 mg-mcg-mg Capsule Take 1 Capsule by mouth 2 times daily . 11/12/19 18 Active ketorolac tromethamine (ACULAR) 0.5 % solution 05/03/20 19 Active mirtazapine (REMERON) 15 mg tablet Take 15 mg by mouth. 09/21/19 20 Active rivastigmine (EXELON) 4.6 mg/24 hr patch Apply 4.6 mg to skin as directed. 05/09/20 20 Active Jardiance 10 mg tablet Take 1 Tablet by mouth daily. 08/03/19 Active rosuvastatin (CRESTOR) 40 mg tablet Take 40 mg by mouth daily. 03/01/20 Active multivitamin (DAILY-ARCELIA) tablet Take 1 Tablet by mouth daily. 02/27/20 Active acetaminophen (TYLENOL) 325 mg tablet Take 2 Tablets (650 mg) by mouth every 6 hours as needed for Other (See Comment) (See admin instructions). 04/02/20 Active enoxaparin (LOVENOX) 120 mg/0.8 mL injection Inject 0.8 mL (120 mg) by subcutaneous injection every 12 hours. This is for DVT of the RLE and Eliquis failure 04/02/20 Active sacubitriL-vals amira (Entresto) 24-26 mg Tablet Take 0.5 Tablets by mouth 2 times daily. 04/02/20 Active metoprolol succinate (TOPROL XL) 25 mg Extended Release 24 hour tablet Take 0.5 Tablets (12.5 mg) by mouth daily. 04/03/20 Active gabapentin (NEURONTIN) 100 mg capsule Take 2 Capsules (200 mg) by mouth every 12 hours. 04/02/20 Active spironolactone (ALDACTONE) 25 mg tablet Take 0.5 Tablets (12.5 mg) by mouth daily. 04/03/20 Active sennosides-docu sate sodium (SENNA-S) 8.6-50 mg tablet Take 1 Tablet by mouth daily. 04/03/20 Active polyethylene glycol (MIRALAX) 17 gram Powder in Packet Take 1 Packet (17 Grams) by mouth daily. 04/03/20 Active melatonin 3 mg Tablet Take 1 Tablet (3 mg) by mouth nightly as needed for Insomnia. 04/02/20 Active methocarbamoL (ROBAXIN) 500 mg tablet Take 1 Tablet (500 mg) by mouth every 8 hours as needed for Spasm. 04/02/20 Active ALPRAZolam (XANAX) 0.25 mg tabletIndicatio ns:Hematoma of right lower extremity, subsequent encounter Take 1 Tablet (0.25 mg) by mouth 2 times daily as needed for Anxiety. 30 Tablet 04/02/20 25 Active HYDROcodone-teresa taminophen (NORCO) 10-325 mg TabletIndicatio ns:Anxiety and depression Take 1 Tablet by mouth every 4 hours as needed for Pain. Max Daily Amount: 6 Tablets 30 Tablet 04/02/20 Active naloxone (NARCAN) 4 mg/spray [place], Non-Aerosol EMERGENCY USE ONLY: Administer 1 spray (4 mg) in one nostril one time. May repeat in alternating nostrils every 2-3 min until responsive or EMS arrives. 04/02/20 Active furosemide (LASIX) 40 mg tablet Take 40 mg by mouth daily. Active aspirin (ECOTRIN EC) 81 mg Tablet, Delayed Release (E.C.) Take 1 Tablet (81 mg) by mouth daily. 04/16/20 Active aspirin (MAGNUS) 325 mg tablet Take 325 mg by mouth daily. 2024 Discontinued metoprolol succinate (TOPROL XL) 25 mg Extended Release 24 hour tablet 07/22/192024 Discontinued hydrOXYzine HCL (ATARAX) 25 mg tablet TAKE 1 TABLET BY MOUTH THREE TIMES A DAY NEEDED FOR ITCHING 05/09/202024 Discontinued clopidogreL (PLAVIX) 75 mg Tablet Take 75 mg by mouth daily. 10/05/192024 Discontinued spironolactone (ALDACTONE) 25 mg tablet Take 25 mg by mouth daily. 08/03/192024 Discontinued Entresto 24-26 mg Tablet 08/03/192024 Discontinued potassium chloride (KLOR-CON) 20 mEq Extended Release tablet Take 20 mEq by mouth daily. 08/03/192024 Discontinued furosemide (LASIX) 40 mg tablet Take 40 mg by mouth daily. 08/03/192024 Discontinued polysaccharide iron complex (FERREX 150,IFEREX 150) 150 mg iron capsule Take 150 mg by mouth 2 times daily. 2024 Discontinued benzonatate (TESSALON) 100 mg capsule Take 100 mg by mouth 3 times daily as needed. 2024 Discontinued Eliquis 5 mg tablet 5 mg 2 times daily. 01/01/202024 Discontinued aspirin (ECOTRIN EC) 81 mg Tablet, Delayed Release (E.C.) Take 1 Tablet (81 mg) by mouth daily. 04/02/202024 Discontinued Active Problems Problem Noted Date Diagnosed Date HTN (hypertension), benign 04/12/2025 Metabolic acidosis 04/12/2025 Mood disorder 04/12/2025 Right calf pain 04/07/2025 Obesity, Class II, BMI 35-39.9 04/06/2025 Pain in both lower extremities 04/06/2025 Left hip pain 04/06/2025 Unable to ambulate 04/06/2025 Femoroacetabular impingement of left hip 025 On continuous oral anticoagulation 03/29/2025 History of lymphoma 03/29/2025 History of pulmonary embolism 03/20/2025 Acute deep vein thrombosis ( DVT) of calf muscle vein of right lower extremity 03/20/2025 Hematoma of right lower extremity 03/20/2025 Essential hypertension 03/20/2025 Anxiety and depression 03/20/2025 GERD (gastroesophageal reflux disease) HFrEF (heart failure with reduced ejection fract ion) 03/20/2025 Acute blood loss anemia 03/20/2025 Hypotension due to hypovolemia 03/20/2025 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 Encounters Date Type Department Care Team Description 04/11/2025 External Device Data [facility] ABSTRACTION Provider, Abstract 04/11/2025 External Device Data [facility]STRACTION Provider, Abstract 04/10/2025 External Device Data [facility] Provider, Abstract 04/06/2025 12:16 PM CDT - 04/13/2025 10:41 AM CDT Hospital Encounter [facility] [address] [place] [address] Ludmila Barillas MD Zhao, Changqing, MD Chennareddy, Kiran Kumar, MD Sarwar, MD Paulina Obesity, Class II, BMI 35-39.9 Discharge Disposition: Care Home Fac(SNF) with Medicare Certification in Anticipation of Skilled Care 04/06/2025 Travel 03/27/2025 External Device Data [facility]STRACTION Provider, Abstract 03/27/2025 External Device Data [facility] Provider, Abstract 03/27/2025 External Device Data [facility] Provider, Abstract 03/22/2025 Travel 03/20/2025 External Device Data [facility] Provider, Abstract 03/20/2025 External Device Data [facility]STRA[facility] Provider, Abstract 03/19/2025 11:13 PM CDT - 04/02/2025 4:03 PM CDT Hospital Encounter [facility] Surgical Stepdown [address] [place] [address] Eufemia Olvera MD Shaikh, Abid Ali, DO Wheeler, Abigail, DO Vasilevski, Vadim, DO Miller, Brian P, MD Hematoma of right lower extremity Discharge Disposition: Care Home Fac(SNF) with Medicare Certification in Anticipation of Skilled Care 03/19/2025 Orders Only [facility] Oncology and Hematology - [address] [address] Vasiliy Solano MD 03/06/2025 External Device Data [facility] ABSTRACTION Provider, [...] drink = 0.6 oz pur e alcohol) Food Insecurity Answer Date Recorded Do you find you are eating l ess than you should because you can t pay for food? No 04/06/2025 Transportation Needs Answer Date Record ed Have you gone without health care because you didn t have a way to get there? 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 No 2024 Housing Stability Answer Date Recorded Do you worry you won t have a steady place to sleep or struggle to pay rent or mortgage? No 04/06/2025 Utility Needs Answer Date Recorded Do you have difficulty payin g for utility costs (electric, water or gas bills)? No 04/06/2025 Medication Needs Answer Date Recorded Have you skipped taking medi cation due to cost or worry you can t afford new medications? No 04/06/2025 Feeling Safe Answer Date Recorded Are you in a relationship wi th someone who hurts you emotionally and/or physically? 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 Gender Identity Not on file Sexual Orientation Not on file Last Filed Vital Signs Vital Sign Reading Time Taken Comments Blood Pressure 95/66 04/13/2025 7:00 AM CDT Pulse 93 04/13/2025 7:00 AM CDT Temperature 36.9 C (98.4 F) 04/13/2025 7:00 AM CDT Respiratory Rate 18 04/13/2025 7:00 AM CDT Oxygen Saturation 97% 04/13/2025 7:00 AM CDT Inhaled Oxygen Concentration - - Weight 112 kg (247 lb) 04/06/2025 9:40 PM CDT Height 177.8 cm (5' 10) 04/06/2025 9:40 PM CDT Body Mass Index 35.44 04/06/2025 9:40 PM CDT Plan of Treatment Upcoming Encounters Date Type Department Care Team (Late st Contact Info) Description 12/11/2025 1:00 PM CDT Office Visit [facility] Oncology and Hematology - [address] [facility] [address] [place] [address] Vasiliy Solano MD [address] [facility] [address] [place] [address] Health Maintenance Due Date Last [...] series) 2024 INFLUENZA VACCINE (#1) 2025 03/21/2019 Procedures Procedure Name Priority Date/Time Associated Diagnosis Comments TELEMETRY REPORT 04/16/2025 9:37 AM CDT TELEMETRY REPORT 04/16/2025 9:28 AM CDT TELEMETRY REPORT 04/16/2025 8:27 AM CDT TELEMETRY REPORT 04/13/2025 3:21 PM CDT BASIC METABOLIC PANEL Stat 04/12/2025 3:15 PM CDT 2019 NOVEL CORONAVIRUS (COVID-19) PCR DETECTION Stat 04/12/2025 2:15 PM CDT TELEMETRY REPORT 04/12/2025 7:59 AM CDT TELEMETRY REPORT 04/11/2025 3:20 PM CDT TELEMETRY REPORT 04/11/2025 3:02 PM CDT TELEMETRY REPORT 04/11/2025 2:40 PM CDT TELEMETRY REPORT 04/11/2025 2:28 PM CDT TELEMETRY REPORT 04/11/2025 1:36 PM CDT TELEMETRY REPORT 04/11/2025 11:57 AM CDT BASIC METABOLIC PANEL Routine 04/11/2025 10:25 AM CDT HEMOGLOBIN AND HEMATOCRIT Timed Study 04/11/2025 10:25 AM CDT XR ANKLE 2 VW RIGHT Pending Discharge 04/10/2025 3:45 PM CDT CBC WITH DIFFERENTIAL Routine 04/10/2025 7:58 AM CDT ELHAM AURIS SURVEILLANCE SCREEN Routine 04/09/2025 3:33 PM CDT BASIC METABOLIC PANEL Routine 04/09/2025 7:02 AM CDT CBC WITH DIFFERENTIAL Routine 04/09/2025 7:02 AM CDT BASIC METABOLIC PANEL Routine 04/08/2025 3:48 AM CDT CBC WITH DIFFERENTIAL Routine 04/08/2025 3:48 AM CDT CK Routine 04/07/2025 5:11 AM CDT BASIC METABOLIC PANEL Routine 04/07/2025 5:11 AM CDT CTA LOW EXT W WO CONTRAST RIGHT Stat 04/06/2025 6:13 PM CDT LACTIC ACID Stat 04/06/2025 2:33 PM CDT XR HIP 2 OR 3 VIEWS LT Stat 04/06/2025 1:52 PM CDT PROTIME-INR Stat 04/06/2025 1:28 PM CDT PTT Stat 04/06/2025 1:28 PM CDT COMPREHENSIVE METABOLIC PANEL Stat 04/06/2025 1:28 PM CDT CBC WITH DIFFERENTIAL Stat 04/06/2025 1:28 PM CDT RENAL FUNCTION PANEL Routine 04/02/2025 2:46 AM CDT URIC ACID Routine 04/01/2025 7:41 AM CDT C-REACTIVE PROTEIN Routine 04/01/2025 7: 41 AM CDT RENAL FUNCTION PANEL Routine 04/01/2025 7:41 AM CDT CTA LOW EXT W WO CONTRAST RIGHT Stat 03/31/2025 3:54 PM CDT CARDIOLIPIN IGG/IGM Routine 03/31/2025 3 :27 PM CDT CARDIOLIPIN ANTIBODY IGA Routine 03/31/2025 3:27 PM CDT CK Routine 03/31/2025 11:29 AM CDT CBC WITH DIFFERENTIAL Routine 03/31/2025 11:29 AM CDT CK Routine 03/31/2025 8:04 AM CDT Acute blood loss anemia Acute deep vein thrombosis (DVT) of calf muscle vein of right lower extremity Anxiety and depression Essential hypertension Gastroesophageal reflux disease, unspecified whether esophagitis present Hematoma of right lower extremity, subsequent encounter HFrEF (heart failure with reduced ejection fraction) History of lymphoma History of pulmonary embolism Hypotension due to hypovolemia 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 (CMS/HCC) On continuous oral anticoagulation LACTATE DEHYDROGENASE Routine 03/31/2025 8:04 AM CDT RENAL FUNCTION PANEL Routine 03/31/2025 8:04 AM CDT EKG 12-LEAD Stat 03/30/2025 1:58 PM CDT TELEMETRY REPORT 03/30/2025 11:35 AM CDT TELEMETRY REPORT 03/30/2025 11:35 AM CDT TELEMETRY REPORT 03/30/2025 11:24 AM CDT TELEMETRY REPORT 03/30/2025 11:23 AM CDT TELEMETRY REPORT 03/30/2025 9:55 AM CDT TELEMETRY REPORT 03/30/2025 9:15 AM CDT TELEMETRY REPORT 03/30/2025 9:09 AM CDT TELEMETRY REPORT 03/30/2025 8:48 AM CDT LACTATE DEHYDROGENASE Routine 03/30/2025 3:28 AM CDT RENAL FUNCTION PANEL Routine 03/30/2025 3:28 AM CDT CBC WITH DIFFERENTIAL Routine 03/30/2025 3:28 AM CDT BETA 2 GLYCOPROTEIN I ANTIBODIES Routine 03/29/2025 4:12 PM CDT TELEMETRY REPORT 03/29/2025 4:00 PM CDT TELEMETRY REPORT 03/29/2025 2:02 PM CDT TELEMETRY REPORT 03/29/2025 9:56 AM CDT PTT Timed Study 03/28/2025 2:48 AM CDT PTT Timed Study 03/27/2025 5:19 PM CDT PTT Timed Study 03/27/2025 10:15 AM CDT LACTATE DEHYDROGENASE Routine 03/27/2025 10:15 AM CDT 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 (CMS/HCC) CBC WITH DIFFERENTIAL Routine 03/27/2025 10:15 AM CDT 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 (CMS/HCC) ELHAM AURIS SURVEILLANCE SCREEN Routine 03/27/2025 6:47 AM CDT CBC WITHOUT DIFFERENTIAL Routine 03/27/2025 3:19 AM CDT PTT Timed Study 03/27/2025 3:18 AM CDT BASIC METABOLIC PANEL Routine 03/27/2025 3:18 AM CDT PTT Timed Study 03/26/2025 8:30 PM CDT PTT Stat 03/26/2025 11:27 AM CDT COMPREHENSIVE METABOLIC PANEL Routine 03/25/2025 3:06 AM CDT CBC WITHOUT DIFFERENTIAL Routine 03/25/2025 3:06 AM CDT PTT Timed Study 03/24/2025 5:30 AM CDT PTT Routine 03/23/2025 9:46 AM CDT BASIC METABOLIC PANEL Routine 03/23/2025 7:13 AM CDT CBC WITH DIFFERENTIAL Routine 03/23/2025 7:13 AM CDT TELEMETRY REPORT 03/23/2025 6:21 AM CDT TELEMETRY REPORT 03/23/2025 5:38 AM CDT BASIC METABOLIC PANEL Routine 03/22/2025 10:28 AM CDT CBC WITH DIFFERENTIAL Routine 03/22/2025 10:28 AM CDT CK Timed Study 03/21/2025 8:31 AM CDT COMPREHENSIVE METABOLIC PANEL Routine 03/21/2025 8:31 AM CDT CBC WITH DIFFERENTIAL Routine 03/21/2025 8:31 AM CDT ECHOCARDIOGRAM W/ CONTRAST AGENT Routine 03/21/2025 8:00 AM CDT HEMOGLOBIN AND HEMATOCRIT Routine 03/20/2025 10:24 PM CDT TRANSFUSE PACKED RED BLOOD CELLS Routine 03/20/2025 2:18 PM CDT PREPARE RED BLOOD CELLS Routine 03/20/2025 1:15 PM CDT TYPE AND SCREEN Routine 03/20/2025 12:21 PM CDT CK Routine 03/20/2025 12:21 PM CDT HEMOGLOBIN AND HEMATOCRIT Stat 03/20/2025 12:21 PM CDT COMPREHENSIVE METABOLIC PANEL Routine 03/20/2025 3:11 AM CDT CBC WITH DIFFERENTIAL Routine 03/20/2025 3:11 AM CDT CTA LOW EXT W WO CONTRAST RIGHT Stat 03/20/2025 1:54 AM CDT EKG 12-LEAD Stat 03/20/2025 12:32 AM CDT CK Routine 03/19/2025 11:55 PM CDT PROTIME-INR Stat 03/19/2025 11:55 PM CDT PTT Stat 03/19/2025 11:55 PM CDT COMPREHENSIVE METABOLIC PANEL Stat 03/19/2025 11:55 PM CDT CBC WITH DIFFERENTIAL Stat 03/19/2025 11:[address] ABDOMEN PELVIS W CONTRAST Routine 03/15/2025 10:48 AM CDT from Last 3 Months Results * TELEMETRY REPORT (04/16/2025 9:37 AM CDT) Only the most recent of24 resultswithin the time period is included. us Provider Scanning ECG ORDERABLES Final Result * (ABNORMAL) BASIC METABOLIC PANEL (04/12/2025 3:15 PM CDT) Only the most recent of8 resultswithin the time period is included. SODIUM 137 136 - 145 mmol/L 04/12/2025 4:27 PM CDT [facility] POTASSIUM 3.5 3.4 - 5.1 mmol/L 04/12/2025 4:27 PM CDT [facility] CHLORIDE 105 98 - 107 mmol/L 04/12/2025 4:27 PM CDT [facility] CO2 16(L) 22 - 29 mmol/L 04/12/2025 4:27 PM CDT [facility] CALCIUM 9.0 8.6 - 10.4 mg/dL 04/12/2025 4:27 PM CDT [facility] BUN 14 6 - 20 mg/dL 04/12/2025 4:27 PM CDT [facility] CREATININE 0.95 0.67 - 1.17 mg/dL 04/12/2025 4:27 PM CDT [facility] Comment:The GFR result is no t clinically significant on patients <18 or >70 years of age. GLUCOSE 116(H) 74 - 99 mg/dL 04/12/2025 4:27 PM CDT [facility] GFR >60 mL/min/1.7 3 sq meter 04/12/2025 4:27 PM CDT [facility] Comment:eGFR calculated with 2020 CKD-EPI equation. Vegetarian diet, extremely high or low muscle mass, and may affect results. Cystatin C with Glomerular Filtration Rate is a suitable alternative for these patients. ANION GAP 16 8 - 16 mmol/L 04/12/2025 4:27 PM CDT [facility] Blood Venipuncture / Unknown 04/12/2025 3:15 PM CDT 04/12/2025 3:28 PM CDT Paulina Schneider MD CHEMISTRY ORDERABLES Final Resu lt [facility]# [id number] [place] [address] * 2019 NOVEL CORONAVIRUS (COVID-19) PCR DETECTION (04/12/2025 2:15 PM CDT) COVID-19 PCR NOT DETECTED Not Detected 04/12/20 3:29 PM CDT [facility] Upper Respiratory ENTIRE NASOPHARYNX / Unknown Collection / Unknown 04/12/2025 2:15 PM CDT 04/12/2025 2:19 PM CDT Narrative [facility] - 04/12/2025 3:29 PM CDT This test has been authorized by the FDA under an Emergency Use Authorization for use by authorized laboratories. This test has been validated in accordance with the FDA's guidance regarding Coronavirus Disease-2019 testing. Optimum specimen types and timing for peak viral levels during infection have not been determined. A negative RT-PCR result does not rule out infection with the 2019-Novel Coronavirus. Paulina Schneider MD MICROBIOLOGY - GENERAL ORDERABL ES Final Result Performing Organization Address [facility] Co de Phone Number [facility] [id number] [place] [address] * (ABNORMAL) HEMOGLOBIN AND HEMATOCRIT (04/11/2025 10:25 AM CDT) Only the most recent of3 resultswithin the time period is included. [facility] HEMOGLOBIN 10.2(L) 13.6 - 16.5 g/dL 04/11/2025 10:38 AM CDT [facility] HEMATOCRIT 31.8(L) 40.0 - 48.0 % 04/11/2025 10:38 AM CDT [facility] Blood Venipuncture / Unknown 04/11/2025 10:25 AM CDT 04/11/2025 10:37 AM CDT Juan Manuel Messina MD HEMATOLOGY ORDERABLES Final Result Performing Organization Address [facility] Co de Phone Number [facility]# [id number] [place] [address] * XR ANKLE 2 VW RIGHT (04/10/2025 3:45 PM CDT) Anatomical Region Laterality Modality Ankle / Foot Computed Radiogr aphy 04/10/2025 3:45 PM CDT Impressions 04/10/2025 3:53 PM CDT IMPRESSION: 1. No acute fracture or dislocation identified. DICTATION LOCATION: Location - [facility] Narrative 04/10/2025 3:53 PM CDT EXAMINATION: XR ANKLE 2 VW RIGHT DATE: 04/10/2025 3:45 PM HISTORY: Pain; Pain in both lower extremities; Pain in both lower extremities COMPARISON: No prior study is available for comparison at the time of this dictation. FINDINGS: There is no evidence of acute fracture or dislocation. Talar dome is intact. Bone mineralization is normal. Diffuse soft tissue swelling is seen. Procedure Note Clark Caballero MD - 04/10/2025 EXAMINATION: XR ANKLE 2 VW RIGHT DATE: 04/10/2025 3:45 PM HISTORY: Pain; Pain in both lower extremities; Pain in both lower extremities COMPARISON: No prior study is available for comparison at the time of this dictation. FINDINGS: There is no evidence of acute fracture or dislocation. Talar dome is intact. Bone mineralization is normal. Diffuse soft tissue swelling is seen. IMPRESSION: 1. No acute fracture or dislocation identified. DICTATION LOCATION: Location [address] [place] [address] Juan Manuel Messina MD DIAGNOSTIC IMAGING OR DERABLES Final Result * (ABNORMAL) CBC WITH DIFFERENTIAL (04/10/2025 7:58 AM CDT) Only the most recent of12 resultswithin the time period is included. WBC 6.8 4.0 - 9.8 K/uL 04/10/2025 9:25 AM CDT [facility] RBC 3.56(L) 4.50 - 5.40 M/uL 04/10/2025 9:25 AM CDT [facility] HEMOGLOBIN 10.0(L) 13.6 - 16.5 g/dL 04/10/2025 9:25 AM CDT [facility] HEMATOCRIT 31.0(L) 40.0 - 48.0 % 04/10/2025 9:25 AM CDT [facility] MCV 87.1 82.0 - 99.0 fL 04/10/2025 9:25 AM CDT [facility] MCH 28.1 27.2 - 32.6 pg 04/10/2025 9:25 AM CDT [facility] MCHC 32.3 31.5 - 35.5 g/dL 04/10/2025 9:25 AM CDT [facility] RDW 16.9(H) 11.5 - 14.5 % 04/10/2025 9:25 AM CDT [facility] RDW-STDEV 53.3(H) 37.1 - 48.7 fL 04/10/2025 9:25 AM CDT [facility] PLATELETS 289 140 - 350 K/uL 04/10/2025 9:25 AM CDT [facility] MPV 10.0 9.3 - 12.4 fL 04/10/2025 9:25 AM CDT [facility] NEUTROPHILS 71 % 04/10/2025 9:25 AM CDT [facility] LYMPHOCYTES 11 % 04/10/2025 9:25 AM CDT [facility] MONOCYTES 13 % 04/10/2025 9:25 AM CDT [facility] EOSINOPHILS 4 % 04/10/2025 9:25 AM CDT [facility] BASOPHILS 0 % 04/10/2025 9:25 AM CDT [facility] IMMATURE GRANULOCYTES 1 % 04/10/2025 9:25 AM CDT [facility] Comment:IG (Immature Granulo cyte) count includes Metamyelocytes, Myelocytes, and Promyelocytes NEUTROPHIL ABSOLUTE 4.78 1.90 - 7.00 K/uL 04/10/2025 9:25 AM CDT [facility] LYMPHOCYTE ABSOLUTE 0.71 0.70 - 4.50 K/uL 04/10/2025 9:25 AM CDT [facility] MONOCYTE ABSOLUTE 0.88 0.10 - 1.30 K/uL 04/10/2025 9:25 AM CDT [facility] EOSINOPHIL ABSOLUTE 0.30 0.00 - 0.70 K/uL 04/10/2025 9:25 AM CDT [facility] BASOPHILS ABSOLUTE 0.03 0.00 - 0.20 K/uL 04/10/2025 9:25 AM CDT [facility] IMMATURE GRANULOCYTES ABSOLUTE 0.05(H) 0.00 - 0.03 K/uL 04/10/2025 9:25 AM T [facility] Blood Venipuncture / Unknown 04/10/2025 7:58 AM CDT 04/10/2025 9:17 AM CDT Juan Manuel Messina MD HEMATOLOGY ORDERABLES Final Result Performing Organization Address City/[facility]/ZIP Co de Phone Number [facility] CLIA# [id number] [place] [address] * ELHAM AURIS SURVEILLANCE SCREEN (04/09/2025 3:33 PM CDT) Only the most recent of2 resultswithin the time period is included. Elham auris by PCR Not Detected Not Detected 04/10/2025 4:16 AM CDT [facility] Surveillance (Axilla/Groin) Collection / Unknown 04/09/2025 3:33 PM CDT 04/09/2025 3:33 PM CDT Juan Manuel Messina MD MICROBIOLOGY - GENERA L ORDERABLES Final Result Performing Organization Address [facility] Co de Phone Number [facility] CLIA# [id number] [address] [place] [address] * CK (04/07/2025 5:11 AM CDT) Only the most recent of6 resultswithin the time period is included. CK 63 20 - 200 U/L 04/07/2025 10:39 AM CDT [facility] [employer] [facility] [facility] Blood Venipuncture / Unknown 04/07/2025 5:11 AM CDT 04/07/2025 5:36 AM CDT Juan Manuel Messina MD CHEMISTRY ORDERABLES Final Result Performing Organization Address City/[facility] Co de Phone Number [facility] CLIA# [id number] [place] [address] * CTA LOW EXT W AND/OR WO CONTRAST RIGHT (04/06/2025 6:13 PM CDT) Only the most recent of3 resultswithin the time period is included. Anatomical Region Laterality Modality Lower Extremity Computed Tomogra phy 04/06/2025 6:02 PM CDT Impressions 04/06/2025 6:29 PM CDT IMPRESSION: 1. Large posterior calf hematoma is stable in size. No active extravasation identified. DICTATION LOCATION: Location 4 Narrative 04/06/2025 6:29 PM CDT CTA LOW EXT W AND/OR WO CONTRAST RIGHT DATE: 04/06/2025 6:13 PM HISTORY: h/o gastroc hematoma, presenting with worsening pain. TECHNIQUE: Transaxial computed tomographic images of the right lower extremity were obtained prior to and following demonstration of 90 cc Isovue 370 according to angiogram protocol. Coronal and sagittal 3-D MIP images were obtained as part of the exam. The examination was performed with the adjustment of mA according to the patient size and/or the use of Iterative Reconstruction Technique. FINDINGS: There is a large mixed attenuation hematoma of the right calf/gastrocnemius muscle measuring 12 x 4.8 x 13.6 cm, similar in size to the previous examination. No active extravasation is identified within this collection. The common femoral artery and profunda femoris arteries are patent. The femoral artery and popliteal artery are patent. The tibioperoneal trunk is normal. The anterior tibial artery posterior tibial artery and peroneal arteries are normal. Procedure Note Jose Cruz Padilla MD - 04/06/2025 CTA LOW EXT W AND/OR WO CONTRAST RIGHT DATE: 04/06/2025 6:13 PM HISTORY: h/o gastroc hematoma, presenting with worsening pain. TECHNIQUE: Transaxial computed tomographic images of the right lower extremity were obtained prior to and following demonstration of 90 cc Isovue 370 according to angiogram protocol. Coronal and sagittal 3-D MIP images were obtained as part of the exam. The examination was performed with the adjustment of mA according to the patient size and/or the use of Iterative Reconstruction Technique. FINDINGS: There is a large mixed attenuation hematoma of the right calf/gastrocnemius muscle measuring 12 x 4.8 x 13.6 cm, similar in size to the previous examination. No active extravasation is identified within this collection. The common femoral artery and profunda femoris arteries are patent. The femoral artery and popliteal artery are patent. The tibioperoneal trunk is normal. The anterior tibial artery posterior tibial artery and peroneal arteries are normal. IMPRESSION: 1. Large posterior calf hematoma is stable in size. No active extravasation identified. DICTATION LOCATION: Location [address] ORDERABLES Final Result * LACTIC ACID (04/06/2025 2:33 PM CDT) LACTIC ACID 1.3 <=2.0 mmol/L 04/06/2025 3:12 PM CDT [facility] Blood Venipuncture / Unknown 04/06/2025 2:33 PM CDT 04/06/2025 2:44 PM CDT Ludmila Barillas MD CHEMISTRY ORDERABLES Final Resu lt [facility] [employer] [facility] CLIA# [id number] [place] [address] * XR HIP 2 OR 3 VIEWS LT (04/06/2025 1:52 PM CDT) Anatomical Region Laterality Modality Lower Extremity Left Computed Radiogr aphy 04/06/2025 1:53 PM CDT Narrative 04/06/2025 1:56 PM CDT EXAMINATION: XR HIP 2 OR 3 VIEWS LT DATE: 04/06/2025 1:52 PM HISTORY: Pain,See Reason for Exam FINDINGS: 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 DICTATION LOCATION: Location 7 [facility] Result [facility] Ludmila Barillas MD DIAGNOSTIC IMAGING ORDERABLES F inal Result * (ABNORMAL) PTT (04/06/2025 1:28 PM CDT) Only the most recent of10 resultswithin the time period is included. PTT 39.0(H) 23.1 - 37.1 seconds 04/06/2025 2:07 PM CDT [facility] Blood Venipuncture / Unknown 04/06/2025 1:28 PM CDT 04/06/2025 1:45 PM CDT Ludmila Barillas MD HEMATOLOGY ORDERABLES Final Res ult Performing Organization Address [facility] Co de Phone Number [facility] CLIA# [id number] [place], [place] [id number] * (ABNORMAL) PROTIME-INR (04/06/2025 1:28 PM CDT) Only the most recent of2 resultswithin the time period is included. PROTIME 15.0(H) 11.5 - 14.7 Seconds 04/06/2025 2:07 PM CDT [facility] INR 1.2(H) 0.9 - 1.1 04/06/2025 2:07 PM CDT [facility] Blood Venipuncture / Unknown 04/06/2025 1:28 PM CDT 04/06/2025 1:45 PM CDT Ludmila Barillas MD HEMATOLOGY ORDERABLES Final Res ult Performing Organization Address City/[facility]/ZIP Co de Phone Number [facility] CLIA# [id number] [place], [place] [id number] * (ABNORMAL) COMPREHENSIVE METABOLIC PANEL (04/06/2025 1:28 PM CDT) Only the most recent of5 resultswithin the time period is included. [facility] SODIUM 140 136 - 145 mmol/L 04/06/2025 2:16 PM [facility] POTASSIUM 3.7 3.4 - 5.1 mmol/L 04/06/2025 2:16 PM [facility] CHLORIDE 107 98 - 107 mmol/L 04/06/2025 2:16 PM [facility] CO2 11(L) 22 - 29 mmol/L 04/06/2025 2:16 PM [facility] CALCIUM 9.0 8.6 - 10.4 mg/dL 04/06/2025 2:16 PM [facility] BUN 15 6 - 20 mg/dL 04/06/2025 2:16 PM [facility] CREATININE 0.87 0.67 - 1.17 mg/dL 04/06/2025 2:16 PM [facility] Comment:The GFR result is no t clinically significant on patients <18 or >70 years of age. GLUCOSE 72(L) 74 - 99 mg/dL 04/06/2025 2:16 PM [facility] TOTAL PROTEIN 5.8(L) 6.3 - 8.7 g/dL 04/06/2025 2:16 PM [facility] ALBUMIN 3.1(L) 3.5 - 5.2 g/dL 04/06/2025 2:16 PM [facility] BILIRUBIN TOTAL 0.8 0.0 - 1.1 mg/dL 04/06/2025 2:16 PM [facility] ALKALINE PHOSPHATASE 86 40 - 150 U/L 04/06/2025 2:16 PM [facility] AST 32 0 - 41 U/L 04/06/2025 2:16 PM [facility] Comment:Hemolysis present. R esult may be falsely elevated. ALT 17 0 - 41 U/L 04/06/2025 2:16 PM [facility] GFR >60 mL/min/1.7 3 sq meter 04/06/2025 2:16 PM CDT [facility] Comment:eGFR calculated with 2020 CKD-EPI equation. Vegetarian diet, extremely high or low muscle mass, and may affect results. Cystatin C with Glomerular Filtration Rate is a suitable alternative for these patients. ANION GAP 22(H) 8 - 16 mmol/L 04/06/2025 2:16 PM CDT [facility] Blood Venipuncture / Unknown 04/06/2025 1:28 PM CDT 04/06/2025 1:45 PM CDT us Ludmila Barillas MD CHEMISTRY ORDERABLES Final Resu lt [facility] CLIA# [id number] [address] [place] [address] * (ABNORMAL) RENAL FUNCTION PANEL (04/02/2025 2:46 AM CDT) Only the most recent of4 resultswithin the time period is included. SODIUM 139 136 - 145 mmol/L 04/02/2025 3:50 AM CDT [facility] POTASSIUM 3.8 3.4 - 5.1 mmol/L 04/02/2025 3:50 AM CDT [facility] CHLORIDE 106 98 - 107 mmol/L 04/02/2025 3:50 AM CDT [facility] CO2 18(L) 22 - 29 mmol/L 04/02/2025 3:50 AM CDT [facility] CALCIUM 9.2 8.6 - 10.4 mg/dL 04/02/2025 3:50 AM CDT [facility] BUN 14 6 - 20 mg/dL 04/02/2025 3:50 AM CDT [facility] CREATININE 1.01 0.67 - 1.17 mg/dL 04/02/2025 3:50 AM CDT [facility] Comment:The GFR result is no t clinically significant on patients <18 or >70 years of age. GLUCOSE 110(H) 74 - 99 mg/dL 04/02/2025 3:50 AM CDT [facility] ALBUMIN 3.2(L) 3.5 - 5.2 g/dL 04/02/2025 3:50 AM CDT [facility] PHOSPHORUS 3.6 2.5 - 4.5 mg/dL 04/02/2025 3:50 AM CDT [facility] GFR >60 mL/min/1.7 3 sq meter 04/02/2025 3:50 AM CDT [facility] Comment:eGFR calculated with 2020 CKD-EPI equation. Vegetarian diet, extremely high or low muscle mass, and may affect results. Cystatin C with Glomerular Filtration Rate is a suitable alternative for these patients. ANION GAP 15 8 - 16 mmol/L 04/02/2025 3:50 AM CDT [facility] Blood Venipuncture / Unknown 04/02/2025 2:46 AM CDT 04/02/2025 3:20 AM CDT Josiah Doll MD CHEMISTRY ORDERABLES Final Res ult Performing Organization Address City/[facility]/ZIP Co de Phone Number [facility] CLIA# [id number] [place], [place] [id number] * (ABNORMAL) C-REACTIVE PROTEIN (04/01/2025 7:41 AM CDT) CRP 87.2(H) <5.0 mg/L 04/01/2025 8:27 AM CDT [facility] Blood Venipuncture / Unknown 04/01/2025 7:41 AM CDT 04/01/2025 7:59 AM CDT Josiah Doll MD CHEMISTRY ORDERABLES Final Res ult [facility] CLIA# [id number] [place] [address] * URIC ACID (04/01/2025 7:41 AM CDT) URIC ACID 7.0 3.4 - 7.0 mg/dL 04/01/2025 8:27 AM CDT [facility] Blood Venipuncture / Unknown 04/01/2025 7:41 AM CDT 04/01/2025 7:59 AM CDT us Josiah Doll MD CHEMISTRY ORDERABLES Final Res ult [facility] CLIA# [id number] [address] [place] [address] * CARDIOLIPIN ANTIBODY IGA (03/31/2025 3:27 PM CDT) CARDIOLIPIN IGA AB <2.0 APL-U/mL 2024 9:28 AM CDT [facility] Comment: Value Interpretation ----- < 20.0 Antibody not detected > or = 20.0 Antibody detected The antiphospholipid antibody syndrome (APS) is a clinical-pathologic correlation that includes a clinical event (e.g. arterial or venous thrombosis, morbidity) and persistent positive antiphospholipid antibodies (IgM, IgG Cardiolipin or b2GPI antibodies greater than the 99th percentile; or a lupus anticoagulant). International consensus guidelines for APS suggest waiting at least 12 weeks before retesting to confirm antibody persistence. The Systemic Lupus International Collaborating Clinics immunological classification criteria for systemic lupus erythematosus (SLE) include testing for isotype IgA, which has yet to be incorporated into APS criteria. Low level antiphospholipid antibodies may sometimes be detected in the setting of infection, drug therapy or aging. For additional information, please refer to http://education.Ubequity/faq/COQ214 (This link is being provided for informational/ educational purposes only.) FASTING: UNKNOWN Blood Venipuncture / Unknown 03/31/2025 3:27 PM CDT 03/31/2025 3:40 PM CDT Narrative [facility] - 04/04/2025 9:28 AM CDT Performing Organization Information: Site ID: CB Name: [facility] Address: [address] [place] [id number] Director: Jose L Austin us Edward Enrique MD CHEMISTRY ORDERABLES Final Resul t [facility] [phone] * CARDIOLIPIN IGG/IGM (03/31/2025 3:27 PM CDT) Pathologist [facility] CARDIOLIPIN IGG AB <2.0 GPL-U/mL 2024 9:28 AM CDT [facility] Comment: Value Interpretation ----- < 20.0 Antibody not detected > or = 20.0 Antibody detected CARDIOLIPIN IGM AB <2.0 MPL-U/mL 2024 9:28 AM CDT [facility] Comment: Value Interpretation ----- < 20.0 Antibody not detected > or = 20.0 Antibody detected The antiphospholipid antibody syndrome (APS) is a clinical-pathologic correlation that includes a clinical event (e.g. arterial or venous thrombosis, morbidity) and persistent positive antiphospholipid antibodies (IgM, IgG Cardiolipin or b2GPI antibodies greater than the 99th percentile; or a lupus anticoagulant). International consensus guidelines for APS suggest waiting at least 12 weeks before retesting to confirm antibody persistence. The Systemic Lupus International Collaborating Clinics immunological classification criteria for systemic lupus erythematosus (SLE) include testing for isotype IgA, which has yet to be incorporated into APS criteria. Low level antiphospholipid antibodies may sometimes be detected in the setting of infection, drug therapy or aging. For additional information, please refer to http://education.Ubequity/faq/FGX292 (This link is being provided for informational/ educational purposes only.) FASTING: UNKNOWN Blood Venipuncture / Unknown 03/31/2025 3:27 PM CDT 03/31/2025 3:40 PM CDT Narrative [facility] - 04/04/2025 9:28 AM CDT Performing Organization Information: Site ID: CB Name: [facility] Address: [address] [place] [id number] Director: Jose L Austin us Edward Enrique MD CHEMISTRY ORDERABLES Final Resul t [facility] [phone] * (ABNORMAL) LACTATE DEHYDROGENASE (03/31/2025 8:04 AM CDT) Only the most recent of3 resultswithin the time period is included. LD (LACTATE DEHYDROGENASE) 339(H) 135 - 225 U/L 03/31/2025 10:48 AM CDT [facility] Blood Venipuncture / Unknown 03/31/2025 8:04 AM CDT 03/31/2025 8:57 AM CDT us Josiah Doll MD CHEMISTRY ORDERABLES Final Res ult Performing Organization Address City/[facility]/ZIP Co de Phone Number [facility] CLIA# [id number] [address] [place] [address] * EKG 12-LEAD (03/30/2025 1:58 PM CDT) Only the most recent of2 resultswithin the time period is included. 03/30/2025 1:58 PM CDT Narrative INTERFACE SYSTEM - 03/31/2025 10:53 [place] [address] Test Date: 2025-03-30 Pat Name: KELSEY BEAVER Department: 96 Room: [address] [place] [address] Gender: M Chip Silo Tender: SOHEILA 623 : 1950 Requested By: EUFEMIA OLVERA Order Number: [id number] Hung MD: Jorge Jim Measurements Intervals [place] Rate: 83 P: 53 MT: 224 QRS: -40 QRSD: 98 T: 30 QT: 376 QTc: 441 Interpretive Statements Sinus rhythm with 1st degree AV block Left axis deviation Inferior infarct, age undetermined Anterolateral infarct, age undetermined Abnormal ECG Compared to ECG 03/20/2025 00:32:17 Fusion complex(es) no longer present Electronically Signed On 03-31-2025 10:53:25 CDT by Jorge Jim Procedure Note Jorge Jim MD - 03/31/2025 [place] [address] Test Date: 2025-03-30 Pat Name: KELSEY BEAVER Department: 96 Room: [address] [place] [address] Gender: M Chip Silo Tender: JL 623 : 1950 Requested By: EUFEMIA OLVERA Order Number: [id number] Reading MD: Jorge Jim Measurements Intervals [place] Rate: 83 P: 53 MT: 224 QRS: -40 QRSD: 98 T: 30 QT: 376 QTc: 441 Interpretive Statements Sinus rhythm with 1st degree AV block Left axis deviation Inferior infarct, age undetermined Anterolateral infarct, age undetermined Abnormal ECG Compared to ECG 03/20/2025 00:32:17 Fusion complex(es) no longer present Electronically Signed On 03-31-2025 10:53:25 CDT by Jorge Jim us Josiah Doll MD ECG ORDERABLES Final Result INTERFACE SYSTEM Refer to clinic/hospital department * BETA 2 GLYCOPROTEIN I ANTIBODIES (03/29/2025 4:12 PM CDT) B2 GLYCOPROTEIN I IGG TNP U/mL 04/03/2025 10:45 AM CDT [facility] Comment: TEST NOT PERFORMED The specimen submitted did not meet the specimen requirements. Please refer to the [facility] On-Line Test Directory or call Client Services for proper requirements. B2 GLYCOPROTEIN I IGM TNP U/mL 04/03/2025 10:45 AM CDT [facility] Comment: TEST NOT PERFORMED The specimen submitted did not meet the specimen requirements. Please refer to the [facility] On-Line Test Directory or call Client Services for proper requirements. B2 GLYCOPROTEIN I IGA TNP U/mL 04/03/2025 10:45 AM CDT [facility] Comment: TEST NOT PERFORMED The specimen submitted did not meet the specimen requirements. Please refer to the [facility] On-Line Test Directory or call Client Services for proper requirements. Blood Venipuncture / Unknown 03/29/2025 4:12 PM CDT 03/29/2025 4:17 PM CDT Narrative [facility] - 04/03/2025 10:45 AM CDT Performing Organization Information: Site ID: AMD Name: [facility] [place] Address: [address] [place] [address] [address] [place], [place] Director: Mason Martinez M.D.,PhD Edward Enrique MD CHEMISTRY ORDERABLES Final Resul t [facility] [phone] * (ABNORMAL) CBC WITHOUT DIFFERENTIAL (03/27/2025 3:19 AM CDT) Only the most recent of2 resultswithin the time period is included. Pathologist [facility] WBC 8.9 4.0 - 9.8 K/uL 03/27/2025 3:57 AM CDT [facility] RBC 3.47(L) 4.50 - 5.40 M/uL 03/27/2025 3:57 AM CDT [facility] HEMOGLOBIN 9.6(L) 13.6 - 16.5 g/dL 03/27/2025 3:57 AM CDT [facility] HEMATOCRIT 30.5(L) 40.0 - 48.0 % 03/27/2025 3:57 AM CDT [facility] MCV 87.9 82.0 - 99.0 fL 03/27/2025 3:57 AM CDT [facility] MCH 27.7 27.2 - 32.6 pg 03/27/2025 3:57 AM CDT [facility] MCHC 31.5 31.5 - 35.5 g/dL 03/27/2025 3:57 AM CDT [facility] PLATELETS 423(H) 140 - 350 K/uL 03/27/2025 3:57 AM CDT [facility] MPV 8.9(L) 9.3 - 12.4 fL 03/27/2025 3:57 AM CDT [facility] RDW 15.9(H) 11.5 - 14.5 % 03/27/2025 3:57 AM CDT [facility] RDW-STDEV 49.9(H) 37.1 - 48.7 fL 03/27/2025 3:57 AM CDT [facility] Blood Venipuncture / Unknown 03/27/2025 3:19 AM CDT 03/27/2025 3:56 AM CDT us Paco Boyd DO HEMATOLOGY ORDERABLES Final Result [facility] CLIA# [id number] [place] [address] * ECHOCARDIOGRAM W/ CONTRAST AGENT (03/21/2025 8:00 AM CDT) EJECTION FRACTION 60 INTERFACE SYSTEM 03/21/2025 7:23 AM CDT Narrative INTERFACE SYSTEM - 03/21/2025 9:23 AM CDT Transthoracic Echocardiogram Patient: Kelsey Beaver Study ID: [id number] Gender: M : 1950 Age: 74 Race: CAU Height 177.8cm Study Date: 03/21/2025 Weight: 120kg Access. #: [id number] BP: 114 / 56 *Referring Physician:* Divine Milton *Ordering Physician:* Divine Milton *Computer Operations Supervisor:Rocio Theodore [facility] machine shop supervisor: Nurse: Indications: Hypotension. History: PMH: HLD. Risk factors: Hypertension. STUDY CONCLUSIONS: SUMMARY: - Procedure narrative: A transthoracic echocardiogram was performed. Image quality was technically difficult, The study was technically limited due to poor acoustic window availability and poor patient compliance. Scanning was performed from the parasternal, apical, and subcostal acoustic windows. Intravenous contrast (Definity) was administered to enhance endocardial border detection that was not seen in two consecutive segments due to suboptimal baseline images and opacify the LV. - Left ventricle: The cavity size was normal. Wall thickness was normal. Global systolic function is normal. The estimated ejection fraction is 60-65%. For Epic reporting: the left ventricular ejection fraction is 60% . - Aortic valve: Mild regurgitation. - Mitral valve: Mild regurgitation. - Left atrium: The atrium is normal in size. - Right ventricle: The cavity size is normal. Systolic function is normal. - Pulmonary arteries: The peak systolic pressure is 14mm Hg. Cardiac Anatomy: LEFT VENTRICLE: The cavity size was normal. Wall thickness was normal. Global systolic function is normal. The estimated ejection fraction is 60-65%. For Epic reporting: the left ventricular ejection fraction is 60% . Wall motion is normal; there are no regional wall motion abnormalities. AORTIC VALVE: Not well visualized. Mild regurgitation. The mean systolic gradient is 9mm Hg. The peak systolic gradient is 17mm Hg. The LVOT to aortic valve VTI ratio is 0.52. The valve area is 2.0cm^2. The ratio of LVOT to aortic valve peak velocity is 0.5. AORTA: Aortic root: The root is normal-sized. MITRAL VALVE: Structurally normal valve. Mild regurgitation. The mean diastolic gradient is 2mm Hg. The peak diastolic gradient is 4mm Hg. LEFT ATRIUM: The atrium is normal in size. RIGHT VENTRICLE: The cavity size is normal. Systolic function is normal. PULMONIC VALVE: Structurally normal valve. No significant regurgitation. TRICUSPID VALVE: Structurally normal valve. No significant regurgitation. RIGHT ATRIUM: The atrium was normal in size. SYSTEMIC VEINS: Inferior vena cava: The IVC is normal-sized. PERICARDIUM: There is no pericardial effusion. Measurements Left ventricle Value Ref EDV, 2-p (H) 216 ml 62 - 150 ESV, 2-p (H) 86 ml 21 - 61 EF, 2-p (N) 60 % 52 - 72 SV, 2-p 130 ml --------- SV/bsa, 2-p 55.3 ml/m^2 --------- E', med ovidio, TDI (L) 6.5 cm/sec >=7.0 E/e', med ovidio, TDI 8 --------- LVOT Value Ref Diam, S 2.2 cm --------- Area 3.8 cm^2 --------- Peak lara, S 1.03 m/sec --------- VTI, S 19.0 cm --------- Right ventricle Value Ref YOVANY minor ax, A4C base (H) 4.2 cm 2.5 - 4.1 YOVANY minor ax, A4C mid (H) 3.7 cm 1.9 - 3.5 YOVANY major ax, A4C (H) 9.8 cm 5.9 - 8.3 TAPSE, MM (N) 2.7 cm >=1.7 Pressure, S 14 mm Hg --------- S' lateral (N) 13.6 cm/sec >=9.5 Left atrium Value Ref AP dim, ES (N) 3.3 cm 3.0 - 4.0 AP dim index, ES (L) 1.4 cm/m^2 1.5 - 2.3 SI dim, A4C 5.5 cm --------- Area ES, A4C (N) 17 cm^2 <=20 Area/bsa ES, A4C 7.02 cm^2/m^2 --------- SI dim, A2C 4.6 cm --------- SI dim, shorter 4.6 cm --------- Vol, ES, 1-p A2C (N) 41 ml 18 - 58 Vol/bsa, ES, 1-p A2C (N) 17 ml/m^2 11 - 43 Vol, ES, 2-p 44 ml --------- Vol/bsa, ES, 2-p (N) 19 ml/m^2 16 - 34 LA/Ao root ratio 1.32 --------- Right atrium Value Ref SI dim, ES, A4C (H) 6.1 cm 3.4 - 5.3 SI dim/bsa, ES, A4C (N) 2.6 cm/m^2 1.8 - 3.0 Area, ES, A4C (H) 19 cm^2 10 - 18 Vol, ES, 1-p A4C 49 ml --------- Vol/bsa, ES, 1-p A4C (N) 21 ml/m^2 11 - 39 Aortic valve Value Ref Peak v, S 2.1 m/sec --------- Mean v, S 1.37 m/sec --------- VTI, S 36.4 cm --------- Accel time 63 ms --------- Mean grad, S 9 mm Hg --------- Peak grad, S 17 mm Hg --------- LVOT/AV, VTI ratio 0.52 --------- FROILAN, VTI 2.0 cm^2 --------- FROILAN/bsa, VTI 0.84 cm^2/m^2 --------- LVOT/AV, Vpeak ratio 0.5 --------- FROILAN, Vmax 1.9 cm^2 --------- FROILAN/bsa, Vmax 0.8 cm^2/m^2 --------- Mitral valve Value Ref Peak E 0.53 m/sec --------- Peak A 0.48 m/sec --------- Mean grad, D 2 mm Hg --------- Peak grad, D 4 mm Hg --------- Peak E/A ratio 1.1 --------- Pulmonic valve Value Ref Peak v, S 1.33 m/sec --------- Peak grad, S 7 mm Hg --------- Tricuspid valve Value Ref Peak E 0.56 m/sec --------- TR peak v (N) 1.5 m/sec <=2.8 Peak RV-RA grad, S 9 mm Hg --------- Aortic root Value Ref Root diam, 2.5 cm --------- Pulmonary artery Value Ref Pressure, S 14 mm Hg --------- Systemic veins Value Ref Estimated RA pressure 5 mm Hg --------- Legend: (L) and (H) praneeth values outside specified reference range. (N) branham values inside specified reference range. Procedure data: [facility] Comparison was made to the study of 08/16/2017. Study status: Routine. Procedure information: A transthoracic echocardiogram was performed. Image quality was technically difficult, The study was technically limited due to poor acoustic window availability and poor patient compliance. Scanning was performed from the parasternal, apical, and subcostal acoustic windows. Intravenous contrast (Definity) was administered to enhance endocardial border detection that was not seen in two consecutive segments due to suboptimal baseline images and opacify the LV. Transthoracic echocardiogram. Complete 2D, complete spectral Doppler, and color Doppler. Images were not appropriate for strain imaging. Birthdate: Patient birthdate: 1950. Age: Patient is 74year(s) old. Sex: gender: male. Height: 177.8cm. 70in. Weight: 120kg. 264.5lb. Body mass index: 38kg/m^2. Body surface area: 2.35m^2. Heart rate: 93bpm. Blood pressure: 114/56 Patient status: Inpatient. Study date: Study date: 03/21/2025. Study time: 07:23 AM. Location: Bedside. Prepared and Electronically Authenticated Jorge Jim M.D. [id number]:56 Procedure Note Jorge iJm MD - 03/21/2025 Transthoracic Echocardiogram Patient: Kelsey Beaver Study ID: [id number] Gender: M : 1950 Age: 74 Race: BETO Height 177.8cm Study Date: 03/21/2025 Weight: 120kg Access. #: [id number] BP: 114 / 56 *Referring Physician:* Divine Milton *Ordering Physician:Divine Delarosa *Computer Operations Supervisor:Rocio Theodore [facility] machine shop supervisor: Nurse: Indications: Hypotension. History: PMH: HLD. Risk factors: Hypertension. STUDY CONCLUSIONS: SUMMARY: - Procedure narrative: A transthoracic echocardiogram was performed.Image quality was technically difficult, The study was technically limited dueto poor acoustic window availability and poor patient compliance. Scanningwas performed from the parasternal, apical, and subcostal acousticwindows. Intravenous contrast (Definity) was administered to enhanceendocardial border detection that was not seen in two consecutive segments due to suboptimal baseline images and opacify the LV. - Left ventricle: The cavity size was normal. Wall thickness was normal. Global systolic function is normal. The estimated ejection fraction is 60-65%. For Epic reporting: the left ventricular ejection fraction is60% . - Aortic valve: Mild regurgitation. - Mitral valve: Mild regurgitation. - Left atrium: The atrium is normal in size. - Right ventricle: The cavity size is normal. Systolic function isnormal. - Pulmonary arteries: The peak systolic pressure is 14mm Hg. Cardiac Anatomy: LEFT VENTRICLE: The cavity size was normal. Wall thickness was normal.Global systolic function is normal. The estimated ejection fraction is 60-65%.For Epic reporting: the left ventricular ejection fraction is 60% . Wallmotion is normal; there are no regional wall motion abnormalities. AORTIC VALVE: Not well visualized. Mild regurgitation. The meansystolic gradient is 9mm Hg. The peak systolic gradient is 17mm Hg. The LVOT toaortic valve VTI ratio is 0.52. The valve area is 2.0cm^2. The ratio of LVOT to aortic valve peak velocity is 0.5. AORTA: Aortic root: The root is normal-sized. MITRAL VALVE: Structurally normal valve. Mild regurgitation. Themean diastolic gradient is 2mm Hg. The peak diastolic gradient is 4mm Hg. LEFT ATRIUM: The atrium is normal in size. RIGHT VENTRICLE: The cavity size is normal. Systolic function isnormal. PULMONIC VALVE: Structurally normal valve. No significantregurgitation. TRICUSPID VALVE: Structurally normal valve. No significantregurgitation. RIGHT ATRIUM: The atrium was normal in size. SYSTEMIC VEINS: Inferior vena cava: The IVC is normal-sized. PERICARDIUM: There is no pericardial effusion. Measurements Left ventricle Value Ref EDV, 2-p (H) 216 ml 62 - 150 ESV, 2-p (H) 86 ml 21 - 61 EF, 2-p (N) 60 % 52 - 72 SV, 2-p 130 ml --------- SV/bsa, 2-p 55.3 ml/m^2 --------- E', med ovidio, TDI (L) 6.5 cm/sec >=7.0 E/e', med ovidio, TDI 8 --------- LVOT Value Ref Diam, S 2.2 cm --------- Area 3.8 cm^2 --------- Peak lara, S 1.03 m/sec --------- VTI, S 19.0 cm --------- Right ventricle Value Ref YOVANY minor ax, A4C base (H) 4.2 cm 2.5 - 4.1 YOVANY minor ax, A4C mid (H) 3.7 cm 1.9 - 3.5 YOVANY major ax, A4C (H) 9.8 cm 5.9 - 8.3 TAPSE, MM (N) 2.7 cm >=1.7 Pressure, S 14 mm Hg --------- S' lateral (N) 13.6 cm/sec >=9.5 Left atrium Value Ref AP dim, ES (N) 3.3 cm 3.0 - 4.0 AP dim index, ES (L) 1.4 cm/m^2 1.5 - 2.3 SI dim, A4C 5.5 cm --------- Area ES, A4C (N) 17 cm^2 <=20 Area/bsa ES, A4C 7.02 cm^2/m^2 --------- SI dim, A2C 4.6 cm --------- SI dim, shorter 4.6 cm --------- Vol, ES, 1-p A2C (N) 41 ml 18 - 58 Vol/bsa, ES, 1-p A2C (N) 17 ml/m^2 11 - 43 Vol, ES, 2-p 44 ml --------- Vol/bsa, ES, 2-p (N) 19 ml/m^2 16 - 34 LA/Ao root ratio 1.32 --------- Right atrium Value Ref SI dim, ES, A4C (H) 6.1 cm 3.4 - 5.3 SI dim/bsa, ES, A4C (N) 2.6 cm/m^2 1.8 - 3.0 Area, ES, A4C (H) 19 cm^2 10 - 18 Vol, ES, 1-p A4C 49 ml --------- Vol/bsa, ES, 1-p A4C (N) 21 ml/m^2 11 - 39 Aortic valve Value Ref Peak v, S 2.1 m/sec --------- Mean v, S 1.37 m/sec --------- VTI, S 36.4 cm --------- Accel time 63 ms --------- Mean grad, S 9 mm Hg --------- Peak grad, S 17 mm Hg --------- LVOT/AV, VTI ratio 0.52 --------- FROILAN, VTI 2.0 cm^2 --------- FROILAN/bsa, VTI 0.84 cm^2/m^2 --------- LVOT/AV, Vpeak ratio 0.5 --------- FROILAN, Vmax 1.9 cm^2 --------- FROILAN/bsa, Vmax 0.8 cm^2/m^2 --------- Mitral valve Value Ref Peak E 0.53 m/sec --------- Peak A 0.48 m/sec --------- Mean grad, D 2 mm Hg --------- Peak grad, D 4 mm Hg --------- Peak E/A ratio 1.1 --------- Pulmonic valve Value Ref Peak v, S 1.33 m/sec --------- Peak grad, S 7 mm Hg --------- Tricuspid valve Value Ref Peak E 0.56 m/sec --------- TR peak v (N) 1.5 m/sec <=2.8 Peak RV-RA grad, S 9 mm Hg --------- Aortic root Value Ref Root diam, 2.5 cm --------- Pulmonary artery Value Ref Pressure, S 14 mm Hg --------- Systemic veins Value Ref Estimated RA pressure 5 mm Hg --------- Legend: (L) and (H) praneeth values outside specified reference range. (N) branham values inside specified reference range. Procedure data: [facility] Comparison was made to the study of 08/16/2017. Studystatus: Routine. Procedure information: A transthoracic echocardiogram was performed. Image quality was technically difficult, The study wastechnically limited due to poor acoustic window availability and poor patientcompliance. Scanning was performed from the parasternal, apical, and subcostalacoustic windows. Intravenous contrast (Definity) was administered to enhance endocardial border detection that was not seen in two consecutive segmentsdue to suboptimal baseline images and opacify the LV. Transthoracic echocardiogram. Complete 2D, complete spectral Doppler, and colorDoppler. Images were not appropriate for strain imaging. Birthdate: Patient birthdate: 1950. Age: Patient is 74year(s) old. Sex: Birthgender: male. Height: 177.8cm. 70in. Weight: 120kg. 264.5lb. Body massindex: 38kg/m^2. Body surface area: 2.35m^2. Heart rate: 93bpm. Blood pressure: 114/56 Patient status: Inpatient. Study date: Studydate: 03/21/2025. Study time: 07:23 AM. Location: Bedside. Prepared and Electronically Authenticated Jorge Jim M.D. [id number] us Divine Milton DO US ORDERABLES Final Result INTERFACE SYSTEM Refer to clinic/hospital department * TRANSFUSE RED BLOOD CELLS (03/20/2025 6:11 PM CDT) us Divine Milton DO BLOOD TRANSFUSION ORDERABLES Final Result * PREPARE RED BLOOD CELLS (03/20/2025 1:15 PM CDT) COMPONENT TYPE [id number] [facility] [employer] [facility] COMPONENT IDENTIFICATION [id number] [facility]OR[facility] UNIT ABO O [facility] UNIT RH NEG [facility] CROSSMATCH Compatible [facility] [employer] [facility] COMPONENT STATUS Transfused ME [facility] COMPONENT EXPIRATION DATE/TIME [id number] [facility] [employer] [facility] COMPONENT CODING SYSTEM [address] [facility] [employer] [facility] VOLUME, BLOOD PRODUCT 350 [facility] [employer] [facility] Other, specify 03/20/2025 1: 15 PM CDT us Divine Milton DO LAB TRANSFUSION ORDERABLES Ed ited Result - Final [facility] [employer] [facility] CLIA# [id number] [place] [address] * TYPE AND SCREEN (03/20/2025 12:21 PM CDT) ABO GROUP A 03/20/2025 1:40 PM CDT [facility] [employer] [facility] RH (D) TYPE Positive 03/20/2025 1:40 PM CDT [facility] [employer] [facility] ANTIBODY SCREEN Negative 03/20/2025 1:40 PM CDT [facility] [employer] [facility] Blood Venipuncture / Unknown 03/20/2025 12:21 PM CDT 03/20/2025 12:42 PM CDT us Divine Milton DO BLOOD BANK ORDERABLES Edited Result - Final [facility]# [id number] [place] [address] * CT ABDOMEN PELVIS W CONTRAST (03/15/2025 10:48 AM CDT) Anatomical Region Laterality Modality Abdomen Computed Tomogra phy us Vasiliy Solano MD CT ORDERABLES Final Result from Last 3 Months Insurance [employer] [facility] [address] [place] [id number] Advance Directives For more information, please contact: [phone] Documents on File Type Date Recorded Patient Ore Feeder Expl anation Advance Directive POA 04/12/2025 9:56 AM Advance Directive POA Advance Directive POA 10/31/2019 9:28 AM Aislinn Young Supp * Full Code (Latest Code Status on File) Date Activated Date Inactivated Comments 04/06/2025 7:23 PM 04/13/2025 12:51 PM * Full Code Date Activated Date Inactivated Comments 03/27/2025 11:19 AM 04/02/2025 6:18 PM * Default Full Code - Needs Discussion Date Activated Date Inactivated Comments 03/19/2025 11:22 PM 03/27/2025 11:19 AM Healthcare Agents on File Name Relationship Healthcare Agent Relationship Communication Aislinn Roth Power of Retail Wireless Sales Consultant Health Care Agent Care Teams Meal Attendant Relationship Specialty Start Date End Date Thien Lund MD [address] [place] [address] PCP - General Family Practice 03/03/23
--- OUTSIDE RECORDS SUMMARY | 2025-04-20 09:20 | XMS_ITS | Clinical Summary ---
Author Organization [facility] [address] Address [address] [place] [address] Care Team Providers Care Real Estate Associate Name Role Phone Leo Childs MD Unavailable Thien Lund MD Primary Care Provider [phone] Allergies Active Allergy Reactions Criticality Noted Date [...] (10/22/2021): Added automatically from request for surgery [id number] SOB (shortness of breath) 10/22/2021 Overview (10/22/2021): Added automatically from request for surgery [id number] Generalized anxiety disorder 12/06/2017 Osteoarthritis 03/02/2017 Gastro-esophageal reflux disease without esophag itis 06/19/2016 Hyperlipidemia 06/19/2016 Obstructive sleep apnea 06/19/2016 Recurrent major depressive disorder, in partial remission 06/18/2016 Benign essential hypertension 09/08/2010 Lymphadenopathy 07/14/1999 Encounters Date Type Department Care Team Description 03/07/2025 10:30 AM CDT Office Visit [facility] Cardiology [address] [place] [address] Leo Childs MD 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 of [place]sem[place]ian tribe heart without angina pectoris (Primary Dx); Chronic [...] on file Legal Sex Male 9:52 PM FAMILY LAWYER Gender Identity Not on file Sexual Orientation Not on file Obstetrics History Last Filed Vital Signs Vital Sign Reading Time Taken Comments Blood Pressure 120/72 03/07/2025 10:59 AM CDT Pulse 51 03/07/2025 10:59 AM CDT Temperature 36.3 C (97.3 F) 06/07/2024 10:46 AM FAMILY LAWYER Respiratory Rate 18 06/07/2024 10:4 6 AM FAMILY LAWYER Oxygen Saturation 99% 03/07/2025 10: 59 AM [...] 3 AM CDT 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 of nansem[place] indian tribe heart without angina pectoris from Last 3 [...] Advance Directives For more information, please contact: [phone] Documents on File Type Date Recorded Patient Glue Mounter Operator Expl anation ADVANCE DIRECTIVE 07/25/2021 [facility] Care Teams Real Estate Associate Relationship Specialty Start Date End Date Thien Lund MD [address] [place] [address] PCP - General Family Practice 07/14/23 Leo Childs MD [address] [place], [place] [id number] Lumber Carrier Cardiology 10/21/21
--- OUTSIDE RECORDS SUMMARY | 2025-04-20 09:20 | XMS_ITS | Encounter Summary ---
Author Organization [facility] Address [address] [facility] [place] [address] Care Team Providers Care Gold Letterer Name Role Phone Nathaniel Suarez Debora CARSON Primary Care Provider [phone] Encounter Details Date Type Department Care Team (Late st Contact Info) Description 03/21/2025 Telephone [facility] - Centralized Scheduling [address] [place] [address] Sabas Lozoya MD [address] [place] [address] Social History Tobacco Use Types Packs/Day Years Used Date Smoking Tobacco: Former Smokeless Tobacco: Never Alcohol Use Standard Drinks/Week Comments No 0 (1 standard drink = 0.6 oz pur e alcohol) former PHQ-2 Answer Date Recorded Patient Health Questionnaire-2 Score 1 02/20/2025 Sex and Gender Information Value Date Recorded Sex Assigned at Male 06/23/2023 1:02 PM OUTBOUND CALL CENTER REPRESENTATIVE Legal Sex Male 5:16 PM OUTBOUND CALL CENTER REPRESENTATIVE Gender Identity Male 06/23/2023 1:02 PM OUTBOUND CALL CENTER REPRESENTATIVE Sexual Orientation Straight 06/23/2023 1: 02 PM OUTBOUND CALL CENTER REPRESENTATIVE documented as of this encounter Miscellaneous Notes * Telephone Encounter - Sabas Lozoya MD - 03/21/2025 11:09 AM CDT Called back 03/21/2025 11:16 AM, Og in hospital with blood clot in leg, borderline compartment syndrome, had him at [place] transferred to [facility] for vasc surgery, in extreme pain. Concerned his STDis kicking in. Bringing up childhood stuff unprompted to nursing staff which is not typical for him. Placed on morphine last night for pain. When asked for grinder set up operator, he responded give me a gun and I'll end it. Now that he is on morphine he is a little better, but also with signs of delirium. I informed Lancethat if they consult psychiatry that they can feel free to call me, do NOT change is regimen, and Iwill be out of office on 03/22. Sabas Lozoya MD Bank Examiner Division of Geriatric Psychiatry, Department of Psychiatry and Behavioural Neuroscience [facility] documented in this encounter Plan of Treatment Not on file documented as of this encounter Visit Diagnoses Not on filedocumented in this encounter Care Teams Gold Letterer Relationship Specialty Start Date End Date Nathaniel Suarez DO [address] [place] [address] PCP - General Internal Medicine 03/21/19 documented as of this encounter
--- OUTSIDE RECORDS SUMMARY | 2025-04-20 09:20 | XMS_ITS ---
Author Organization [facility] Address [address] [facility] [place] [address] Care Team Providers Care Logistics Loss Prevention Manager Name Role Phone Thien Lund MD Primary Care Provider [phone] Active Problems Problem Noted Date Diagnosed Date [...] of lymph node s of axilla 09/01/2017 Current Treatment and Therapy Plans No current plan information found. Past Treatment and Therapy Plans No past plan information found. Lifetime Dose Tracking * Chemical Lifetime Dose Automatic Entry Manual Entr y Effective Dose 84.47 mSv 84.47 mSv 0 mSv Total DLP 8,342.67 DLP 8,342.67 DLP 0 DLP CTDIvol Max 41.92 mGy 41.92 mGy 0 mGy CTDIvol Min 25.13 mGy 25.13 mGy 0 mGy
--- OUTSIDE RECORDS SUMMARY | 2025-04-20 09:20 | XMS_ITS | Clinical Summary ---
Author Organization [facility] [employer] Address [address] [facility] [place] [address] Care Team Providers Care Beet Topper Name Role Phone Nathaniel Suarez DO Primary Care Provider [phone] Source Comments [facility] [employer],non-owned Affiliates and Associated Physician Practices is amultiple site organization consisting of ambulatory clinics and hospital sitesin [place], [place], [place] and [place]. This disclosure is being madepursuant to the Care Everywhere program and may not contain all information available regarding this patient. Last updated 18.[facility] [employer] Allergies Active Allergy Reactions Criticality Noted Date [...] Take by mouth once daily 2 Active sacubitril-vals amira (ENTRESTO) 49-51 MG tablet Take 1 tablet by mouth 2 times daily Active Eliquis 5 MG tablet 4 Active vitamin D3 (Cholecalcifero l) 25 MCG (1000 UNITS) tablet 4 Active IFerex 150 150 MG CAPS 4 Active busPIRone (Buspar) 5 MG tabletIndicatio ns:Anxiety Disorder,Major Depressive Disorder Take 1 (one) tablet by mouth 2 times daily Reasons: Anxiety Disorder, Major Depressive Disorder 180 tablet 1 5 08/20/19 26 Active mirtazapine (Remeron) 15 MG tabletIndicatio ns:Major Depressive Disorder Take 1 (one) tablet by mouth at bedtime Reasons: Major Depressive Disorder 90 tablet 1 5 08/20/19 26 Active rivastigmine (Exelon) 4.6 MG/24HR patchIndication s:Alzheimer's Disease Apply 1 (one) patch to skin once daily Reasons: Alzheimer's Disease 90 patch 1 5 08/20/19 26 Active vortioxetine (Trintellix) 20 MG tabletIndicatio ns:Major Depressive Disorder Take 1 (one) tablet by mouth once daily Reasons: Major Depressive Disorder 90 tablet 1 5 08/20/19 26 Active Active Problems Problem Noted Date Diagnosed Date Congestive heart failure 02/23/2025 Chronic kidney disease 02/23/2025 Chronic lower back pain 02/23/2025 NSVT (nonsustained ventricular tachycardia) 10/2024 PAC (premature atrial contraction) 02/23/2025 Unilateral primary osteoarthritis, left hip 04/21 Aneurysm 06/09/2023 Thoracic aortic aneurysm 04/29/2023 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 Date Type Department Care Team Description 03/21/2025 Telephone [facility] - Centralized Scheduling [address] [place] [id number] Sabas Lozoya MD 02/20/2025 Travel from Last 3 Months Immunizations [...] Sex Assigned at Male 06/23/2023 1:02 PM REFRACTORY MANAGER Legal Sex Male 5:16 PM REFRACTORY MANAGER Gender Identity Male 06/23/2023 1:02 PM REFRACTORY MANAGER Sexual Orientation Straight 06/23/2023 1: 02 PM REFRACTORY MANAGER Last Filed Vital Signs Vital Sign Reading Time Taken Comments Blood Pressure 92/64 02/20/2025 3:00 PM CDT Pulse 93 02/20/2025 3:00 PM CDT Temperature 36.1 C (97 F) 09/01/2023 3:29 PM CDT Respiratory Rate 10 06/24/2022 3:04 PM REFRACTORY MANAGER Oxygen Saturation 92% 09/12/2024 1:05 PM CDT [...] AWV CALENDAR YEAR 2024 COVID-19 VACCINE ( season) 2025 04/03/2021, 09/11/2020, 08/20/2020 INFLUENZA VACCINE [...] patient's age to complete [place] [address] COVENTRY MEDICARE [facility] Member Subscriber Plan / Payer (Ef fective 2019-Present) Name:Saranya Kelsey Debora Relation to Subscriber:Self Name:CASENOHELIAKELSEY Debora Payer ID:[id number] ([facility] Type:Medicare-Managed Care Address: [id number] [place] [id number] [place] [address] HEALTH PLAN [employer] MEDICARE ADV Advance Directives Documents on File Type Date Recorded Patient Jig And Fixture Builder Apprentice Expl anation Adv Directive/Living Will/POA 08/20/2021 1:34 PM POA HEALTHCARE Adv Directive/Living Will/POA 08/19/2021 2:02 PM POA FOR HLTHCARE Adv Directive/Living Will/POA 08/24/2019 1:19 PM POA Care Teams Beet Topper Relationship Specialty Start Date End Date Nathaniel Suarez DO [address] [place] [address] PCP - General Internal Medicine 03/21/19
[2025-04-20] MEDS: RIVASTIGMINE TARTRATE 4.6 MG PATCH 1 PATCH TRANSDERM (09:31)
[2025-04-20] MEDS: ENOXAPARIN 120 MG/0.8 ML SYRINGE 108 MG SUB-Q ×2 (09:31→21:52)
[2025-04-20] MEDS: CEFEPIME 2 GM in SODIUM CHLORIDE 0.9% IV 50 ML 100 ML IVPB ×2 (09:33→21:52)
--- NOTE | 2025-04-20 09:42 | WNDPHOTO ---
PHOTO ONLY - See Nursing Notes and/ or assessments for documentation.
--- NOTE | 2025-04-20 09:46 | WNDPHOTO ---
PHOTO ONLY - See Nursing Notes and/ or assessments for documentation.
--- NOTE | 2025-04-20 10:39 | PM.CNCAR ---
Assessment and Plan Assessment and plan (1) New onset a-fib: Code(s): I48.91 - Unspecified atrial fibrillation Status: Acute Assessment and Plan: new onset atrial fibrillation rates of 130-140 on admission started on IV amiodarone and rate better controlled, but still in atrial fibrillation his potassium was 3 on admission and was replaced, will repeat BMP this am check TSH currently on lovenox 1mg/kg BID for AC, was on Eliquis at home, resume when able to take PO plan is rate control for this patient (2) Cardiomyopathy: Code(s): I42.9 - Cardiomyopathy, unspecified Status: Acute Assessment and Plan: history of ICMP Last echo in 2022 demonstrated normalized EF of 50-55% repeat echo is pending per last office visit with Dr. Childs he was on Entresto 49-51mg BID, Toprol XL 75 mg daily, Jardiance 10 mg daily and aldactone 25 mg daily would resume when able to take PO and as BP allows (3) Congestive heart failure: Qualifiers: Heart failure chronicity: chronic Heart failure type: combined systolic and diastolic Qualified Code(s): I50.42 - Chronic combined systolic (congestive) and diastolic (congestive) heart failure Code(s): I50.9 - Heart failure, unspecified Status: Acute Assessment and Plan: chronic diastolic dysfunction despite elevated pBNP does not appear grossly volume overloaded can use diuretics as needed. (4) Thoracic aortic aneurysm without rupture: Qualifiers: Thoracic aorta location: ascending aorta Qualified Code(s): I71.21 - Aneurysm of the ascending aorta, without rupture Code(s): I71.2 - Thoracic aortic aneurysm, without rupture Status: Acute Assessment and Plan: 5.8cm on CT this admission has seen vascular surgery, but has declined surgical intervention in the past continued blood pressure control recommended and resume statin when tolerated (5) HTN (hypertension): Qualifiers: Hypertension type: essential hypertension Qualified Code(s): I10 - Essential (primary) hypertension Code(s): I10 - Essential (primary) hypertension Status: Acute Assessment and Plan: blood pressure has been low meds on hold at this time resume as needed/tolrated (6) Hodgkin's lymphoma, adult: Code(s): C81.90 - Hodgkin lymphoma, unspecified, unspecified site Status: Acute Assessment and Plan: oncology has been consulted (7) Pulmonary embolism: Qualifiers: Pulmonary embolism type: single subsegmental (without acute cor pulmonale) Qualified Code(s): I26.93 - Single subsegmental pulmonary embolism without acute cor pulmonale Code(s): I26.99 - Other pulmonary embolism without acute cor pulmonale Status: Acute Assessment and Plan: patient has a history of PE and has been on Eliquis at home reports of DVT of RLE on 03/13/25, but then f/u US 03/19/[address] of RLE 03/19 showed hematoma would continue AC however, given new atrial fibrillation and history of PE (8) Elevated troponin I level: Code(s): R79.89 - Other specified abnormal findings of blood chemistry Status: Acute Assessment and Plan: troponin are flat at 0.050 and 0.049 these most likely are secondary to demand ischemia in the setting of afib with rvr echo pending known CAD as noted above in cath report, but no invasive w/u is planned medical management (9) Leukocytosis: Code(s): D72.829 - Elevated white blood cell count, unspecified Status: Acute Assessment and Plan: etiology unclear at this time cultures pending antibiotics started as per primary team Plan from CV standpoint goal will be rate control for his atrial fibrillation would continue lovenox for AC and may need to continue at facility as concern for DVT while on Eliquis echo is pending diuretics as needed for CHF recent CT of RLE 03/19 showed hematoma,monitor with full dose AC Goals of care discussion recommended as patient failed swallow eval and has elected for conservative medical management in the past History of Present Illness History of Present Illness Consult date/time: 04/20/25 10:39 Requesting physician: Ana Lowe APRN Consult reason: atrial fibrillation Reason For Visit: Altered mental status, Sepsis, New onset AFib Narrative: 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 According to family patient has been in and out of hospitals and nursing facilities over the last 2 months. He was recently diagnosed with RLE DVT and transferred to [facility] for possible compartment syndrome. It is reported that no procedure was done a that time. He was sent back to a nursing facility, where he evidently became SOB and required O2. Family was concerned for PE and he was transferred to [place] for further evaluation. Patient noted to be altered and lethargic. He does however at this time deny any chest pain or pressure. No dizziness or palpitations. Does note some shortness of breath. Review of Systems Cardiovascular: Cardiovascular: Denies chest pain and Denies palpitations Respiratory: Respiratory: Reports dyspnea PMFSH Past Medical History Medical History (Updated 04/20/25 @ 11:01 by Noelle Graham APRN) Hip osteoarthritis Chronic lower back pain Left hip pain Right rib fracture Flank pain Intertrigo COVID-19 Ascending aortic aneurysm Encounter for routine adult health examination without abnormal findings Essential hypertension Gastroesophageal reflux disease without esophagitis TIA (transient ischemic attack) Depression Cognitive decline JONAH (obstructive sleep apnea) Short-term memory loss Arthritis GERD (gastroesophageal reflux disease) DVT (deep venous thrombosis) Hypercholesterolemia HTN (hypertension) Surgical History Surgical History (Updated 04/20/25 @ 04:54 by Ana Lowe APRN) H/O local excision of skin lesion H/O inguinal hernia repair H/O vein stripping History of tonsillectomy Family History Family History Father Hypertension Family history of coronary artery disease Family history of heart disease in male family member before age 55 Mother Hypertension Family history of congestive heart failure Unknown Heart disease Diabetes mellitus Depression Arthritis Hypertension High cholesterol Other Family history of elevated blood lipids Social History Social History (Updated 04/20/25 @ 04:57 by Ana Lowe APRN) Social History: [facility] care of [facility]. He is . Elects his daughter, Aislinn Beaver, as his decision maker. Code Status: Full Code. Smoking status: Former smoker Second hand tobacco smoke exposure: No Alcohol intake: former Substance use: never Substance use type: does not use Do You Feel Safe in your Home?: Yes Lack of Transportation: No Lack of Food: Never True Current Housing: I Have Housing Concerned About Future Housing: No Difficulty Paying Gas/Electric Bills: No Difficulty Paying for Meds: No Currently Unemployed: No Education: Master's Degree or Higher Difficulty w/ Childcare or Family Care: No Living arrangements: assisted living Occupation/Education: retired Gender identity (if verbalized by the patient): Male Spiritual care concerns: No Meds Home Medications and Allergies Home Medications ?Medication ?Instructions ?Recorded ?Confirmed ?Type multivitamin 1 tablet PO DAILY 04/11/19 04/20/25 History mirtazapine 15 mg tablet 15 mg PO DAILY #1 tablet 11/22/20 04/20/25 Rx empagliflozin 10 mg tablet 10 mg PO DAILY #30 tabs 08/03/21 04/20/25 Rx (Jardiance) polysaccharide iron complex 150 mg See Rx Instructions .Route 08/22/21 04/20/25 Rx iron capsule (Ferrex) .COMPLEX #180 caps metoprolol succinate 25 mg 25 mg PO DAILY 08/29/21 04/19/25 History tablet,extended release 24 hr (Toprol XL) rivastigmine 4.6 mg/24 hour 4.6 mg transdermal DAILY 08/29/21 04/20/25 History transdermal patch sacubitril 49 mg-valsartan 51 mg 1 tablet PO BID 03/18/22 04/20/25 History tablet (Entresto) lansoprazole 30 mg capsule,delayed 30 mg PO DAILY #90 caps 10/02/22 04/20/25 Rx release apixaban 5 mg tablet (Eliquis) 5 mg PO Q12H #60 tabs 05/28/23 04/20/25 Rx Held on 04/19/25. Instructions: taking Lovenox aspirin 81 mg tablet,delayed 81 mg PO DAILY 10/25/23 04/20/25 History release (Adult Aspirin Regimen) Held on 04/19/25. Instructions: On Lovenox therapy rosuvastatin 40 mg tablet 40 mg PO DAILY 10/25/23 04/20/25 History acetaminophen 325 mg tablet 650 mg PO Q6H PRN pain 04/19/25 04/19/25 History alprazolam 0.25 mg tablet (Xanax) 0.25 mg PO BID 04/19/25 04/19/25 History enoxaparin 120 mg/0.8 mL 120 mg subcut Q12H 04/19/25 04/19/25 History subcutaneous syringe gabapentin 100 mg capsule 200 mg PO Q12H 04/19/25 04/19/25 History hydrocodone 10 mg-acetaminophen 1 tablet PO Q4H PRN pain 04/19/25 04/19/25 History 325 mg tablet buspirone 5 mg tablet 15 mg PO Q12HR 04/20/25 04/19/25 History melatonin 3 mg capsule 3 mg PO HS PRN sleep 04/20/25 04/20/25 History methocarbamol 500 mg tablet 500 mg PO Q8H PRN spasms 04/20/25 04/20/25 History naloxone 4 mg/actuation nasal 4 mg intranasal Q2-3M PRN opioid 04/20/25 04/20/25 History spray (Narcan) overdose polyethylene glycol 3350 17 gram 17 g PO DAILY 04/20/25 04/20/25 History oral powder packet (Miralax) sacubitril 24 mg-valsartan 26 mg 0.5 tablet PO BID 04/20/25 04/20/25 History tablet (Entresto) sennosides 8.6 mg-docusate sodium 1 tab-cap PO DAILY 04/20/25 04/20/25 History 50 mg tablet (2-in-1 Laxative) spironolactone 25 mg tablet 12.5 mg PO QAM 04/20/25 04/19/25 History vortioxetine 5 mg tablet 5 mg PO DAILY 04/20/25 04/20/25 History Allergies Allergy/AdvReac Type Severity Reaction Status Date / Time apricot Allergy Severe throat Verified 04/20/25 00:36 SWELLING Vital Signs Vital Signs - 24 hr 04/19/25 17:26 04/19/25 18:41 04/19/25 19:02 Temperature 36.5 C Pulse Rate 136 H Respiratory Rate 30 H Blood Pressure 92/60 L 119/61 104/73 Pulse Oximetry 98 98 100 Oxygen Delivery Oxygen Flow Rate 04/19/25 19:11 04/19/25 19:22 04/19/25 19:31 Temperature Pulse Rate 119 H 129 H 126 H Respiratory Rate 18 20 20 Blood Pressure 105/66 97/65 L 94/69 L Pulse Oximetry 98 Oxygen Delivery Oxygen Flow Rate 04/19/25 19:53 04/19/25 20:37 04/19/25 20:37 Temperature 37.6 C H Pulse Rate 111 H 113 H 132 H Respiratory Rate 19 26 H 17 Blood Pressure 103/67 108/70 108/70 Pulse Oximetry 97 100 Oxygen Delivery Oxygen Flow Rate 04/19/25 20:41 04/19/25 20:51 04/19/25 21:01 Temperature Pulse Rate 114 H 116 H 133 H Respiratory Rate 16 20 20 Blood Pressure 100/68 117/61 101/55 L Pulse Oximetry 99 100 Oxygen Delivery Oxygen Flow Rate 04/19/25 21:14 04/19/25 21:21 04/19/25 21:22 Temperature Pulse Rate 129 H 125 H 133 H Respiratory Rate 14 16 21 H Blood Pressure 90/70 L 101/68 Pulse Oximetry 99 100 100 Oxygen Delivery Oxygen Flow Rate 04/19/25 21:30 04/19/25 21:31 04/19/25 21:35 Temperature Pulse Rate 122 H 122 H 114 H Respiratory Rate 18 18 21 H Blood Pressure 76/56 L 89/61 L Pulse Oximetry 100 100 100 Oxygen Delivery Oxygen Flow Rate 04/19/25 21:37 04/19/25 21:41 04/19/25 21:55 Temperature Pulse Rate 120 H 119 H 131 H Respiratory Rate 17 17 21 H Blood Pressure 106/64 100/57 L 89/62 L Pulse Oximetry 100 Oxygen Delivery Oxygen Flow Rate 04/19/25 21:59 04/19/25 22:00 04/19/25 22:01 Temperature Pulse Rate 120 H 130 H 120 H Respiratory Rate 17 20 12 Blood Pressure 86/68 L 85/67 L Pulse Oximetry Oxygen Delivery Oxygen Flow Rate 04/19/25 22:04 04/19/25 22:08 04/19/25 22:11 Temperature Pulse Rate 124 H 116 H 126 H Respiratory Rate 21 H 17 20 Blood Pressure 86/66 L 88/54 L 92/47 L Pulse Oximetry 100 100 Oxygen Delivery Oxygen Flow Rate 04/19/25 22:21 04/19/25 22:56 04/19/25 23:38 Temperature Pulse Rate 124 H 112 H 114 H Respiratory Rate 23 H Blood Pressure 91/54 L 104/70 96/59 L Pulse Oximetry Oxygen Delivery Oxygen Flow Rate 04/20/25 00:00 04/20/25 00:11 04/20/25 00:44 Temperature 36.8 C Pulse Rate 108 H 106 H 106 H Respiratory Rate 20 20 Blood Pressure 96/59 L Pulse Oximetry 99 99 Oxygen Delivery Nasal Cannula Oxygen Flow Rate 3 04/20/25 02:00 04/20/25 02:00 04/20/25 02:00 Temperature Pulse Rate 98 98 98 Respiratory Rate 22 H Blood Pressure 105/57 L 105/57 L Pulse Oximetry 96 Oxygen Delivery Oxygen Flow Rate 04/20/25 04:00 04/20/25 04:00 04/20/25 04:44 Temperature Pulse Rate 102 H 102 H 102 H Respiratory Rate 22 H Blood Pressure 103/54 L Pulse Oximetry 96 Oxygen Delivery Nasal Cannula Oxygen Flow Rate 3 04/20/25 04:56 04/20/25 06:00 04/20/25 06:00 Temperature 36.8 C Pulse Rate 98 100 100 Respiratory Rate 22 H Blood Pressure 103/54 L 91/63 L Pulse Oximetry 100 98 Oxygen Delivery Oxygen Flow Rate 04/20/25 06:00 04/20/25 07:45 04/20/25 10:00 Temperature 36.9 C 36.9 C Pulse Rate 100 88 104 H Respiratory Rate 20 24 H Blood Pressure 91/63 L 172/82 H 104/58 L Pulse Oximetry 95 100 Oxygen Delivery Oxygen Flow Rate Exam Const: Other: lethargic Neck: Neck: supple and No no JVD Resp: Auscultation: diminished lung sounds Cardio: Rate: tachycardic Rhythm: abnormal rhythm Heart sounds: no gallops, no murmurs and no rubs Other: irreg irreg Extrem: General: edema right Results Labs and Meds 04/19/25 17:57 04/20/25 04:24 Lab results: Cardiac Enzymes 04/19/25 04/19/25 04/20/25 Range/Units 17:57 20:02 04:24 AST 41 (17-59) U/L Troponin I 0.050 H* 0.049 H* (0.000-0.034) ng/mL Coagulation 04/19/25 Range/Units 18:00 PT 15.2 H (11.1-14.7) Seconds APTT 41.8 H (22.3-36.8) Seconds CBC 04/19/25 Range/Units 17:57 WBC 21.6 H (4.5-10.0) K/mm3 RBC 4.61 (4.6-6.20) M/mm3 Hgb 12.5 L D (14.0-18.0) g/dL Hct 40.2 L (42.0-52.0) % Plt Count 342 (150-375) k/mm3 Lymph # (Auto) Not Reportable [place] # (Auto) Not Reportable Eos # (Auto) Not Reportable Baso # (Auto) Not Reportable Comprehensive Metabolic Panel 04/19/25 04/20/25 Range/Units 17:57 04:24 Sodium 142 (137-145) mmol/L Potassium 3.0 L (3.4-5.0) mmol/L Chloride 104 (98-107) mmol/L Carbon Dioxide 23 (22-30) mmol/L BUN 24 H (9-20) mg/dL Creatinine 1.36 H 1.19 (0.7-1.3) mg/dL Glucose 131 H (65-110) mg/dL Calcium 8.7 (8.4-10.2) mg/dL AST 41 (17-59) U/L ALT 46 (6-50) U/L Alkaline Phosphatase 119 (38-126) U/L Total Protein 7.2 (6.3-8.2) g/dL Albumin 3.8 (3.5-5.1) g/dL Intake and Output 04/19/25 04/20/25 04/20/25 23:59 07:59 15:59 Intake Total 1500 600.0 Output Total 700 Balance 1500 -100.0 Intake: IV 1500 600.0 Amiodarone 360 mg/D5w 200 ml 100.0 360 mg In 200 ml @ 0.5 MG/MIN 16.667 mls/hr IV CONT .Q12H ANGELICA Rx#:[id number] Lactated Ringers 500 ml @ 999 1500 mls/hr IV CONT .Q31M STA Rx#: [id number] Vancomycin 1,250 mg/Ns 250 ml 1 500 ,250 mg In 250 ml @ 166.667 mls /hr IVPB ONCE ONE Rx#:[id number] Oral 0 Output: Catheter Urine 700 Urethral Catheter 700 Patient Weight 04/20/25 23:59 Weight 108 kg Imaging and Cardiology Echo: report reviewed (05/2023-EF of 50-55% with diastolic dysfunction and mild ) Cardiac cath: report reviewed (11/22/21-diffuse LAD disease with 50% stenosis of proximal segment and 70-80% stenosis of dLAD, 40-50% stenosis of prox to mid circ and ectactic RCA with diffuse plaque ) EKG results: image reviewed EKG Interpretation EKG: no acute changes EKG shows: atrial fibrillation (rate of 135 bpm )
--- NOTE | 2025-04-20 10:58 | P.CDI_ITS ---
CDI Query Clarification Request ER documented pt being treated for sepsis, but diagnosis was not carried over by hospitalist. 1)Please clarify if sepsis has been ruled in or ruled out. 2)Hypoxia has been documented Please review the clinical information below and clarify the respiratory diagnosis the patient is being treated for: * Hypoxia or hypoxemia without respiratory failure * Respiratory distress without respiratory failure * Acute respiratory failure with hypoxia * Acute respiratory failure with hypercapnia * Acute respiratory failure with hypoxia and hypercapnia * Acute on chronic respiratory failure with hypoxia * Acute on chronic respiratory failure with hypercapnia * Acute on chronic respiratory failure with hypoxia and hypercapnia * Acute respiratory distress syndrome (ARDS) * Chronic respiratory failure with hypoxia * Chronic respiratory failure with hypercapnia * Chronic respiratory failure with hypoxia and hypercapnia * Other explanation clinical findings, please specify * Unable to determine ER documented: Clinical Impression: AMS (altered mental status), Sepsis, New onset a-fib, Generalized weakness, Acute dehydration, History of deep vein thrombosis Patient does have a low-grade fever here and given Tylenol. Will treat him for sepsis of unknown origin and dehydration at this time with new onset AFib likely reactive to infectious process. Patient getting therapuetic Lovenox injections at his facility for recent DVT, trop mildly elevated here without AR/STD so he was given 1 milligram/kilogram b.i.d. dosing Lovenox here for anticoagulation. Head CT shows no bleed. Vaughan placed. Discussed with the hospitalist for admission at this time and patient was accepted to the IMU for continued care of presumed sepsis and new onset AFib. Hospitalist documented: Assessment and plan (1) New onset a-fib: Code(s): I48.91 - Unspecified atrial fibrillation Status: Acute Assessment and Plan: - new onset of AFib. -the patient was placed on amiodarone drip. -an echo has been ordered. -Cardiology consult greatly be appreciated -the patient has already been on Lovenox. -Isai Vasc score is 5. (2) Congestive heart failure: Qualifiers: Heart failure type: combined systolic and diastolic Heart failure chronicity: chronic Qualified Code(s): I50.42 - Chronic combined systolic (congestive) and diastolic (congestive) heart failure Code(s): I50.9 - Heart failure, unspecified Status: Acute Assessment and Plan: -echo has been ordered. -last echo was 05/28/2023 with an EF of 50-55%. -his Entresto has been on hold at this time as he is not awake enough to take p.o. medications. -resume spironolactone when patient is able to take p.o. well -troponin is 0.050 which could be elevated from heart failure or from the AFib RVR. Continue to monitor troponins. (3) HTN (hypertension): Qualifiers: Hypertension type: essential hypertension Qualified Code(s): I10 - Essential (primary) hypertension Code(s): I10 - Essential (primary) hypertension Status: Acute Assessment and Plan: -the patient is currently on amiodarone. -Entresto is on hold at this time -his current blood pressure is 103/54. (4) Mixed hyperlipidemia: Code(s): E78.2 - Mixed hyperlipidemia Status: Acute Assessment and Plan: -patient is not awake enough to take p.o. medication at this time. Resume home medication of rosuvastatin when able. (5) History of deep vein thrombosis: Code(s): Z86.718 - Personal history of other venous thrombosis and embolism Status: Acute Assessment and Plan: -weight based Lovenox for DVT and he has a history of PEs as well. He is currently in AFib as well. (6) Hodgkin's lymphoma, adult: Code(s): C81.90 - Hodgkin lymphoma, unspecified, unspecified site Status: Acute Assessment and Plan: -Hematology-Oncology consultation would greatly be appreciated. His CT scan does show slightly enlarged axillary lymph node. Malignancy not excluded. (7) Leukocytosis: Code(s): D72.829 - Elevated white blood cell count, unspecified Status: Acute Assessment and Plan: -his white count is up to 21.6. -blood cultures are pending -the patient was empirically started on cefepime and vancomycin. -hematology/oncology has been consulted as well. -daily CBCs (8) JONAH (obstructive sleep apnea): Code(s): G47.33 - Obstructive sleep apnea (adult) (pediatric) Status: Acute Assessment and Plan: -home settings for CPAP/BiPAP documented low grade fever in ER leukocytosis WBC: 21.6 documented A&O x1-2 with garbled speech tachypnea tachycardia low b/p documented documented 3L O2 on 04/20 lactic 1.8
[2025-04-20] MEDS: PERFLUTREN LIPID MICROSPHERES 1.5 ML VIAL DILUTED TO 10 ML TOTAL VOLUME IV PUSH (11:30)
--- NOTE | 2025-04-20 11:50 | P.PNIM_ITS ---
Progress Note: A&P Assessment and Plan (1) New onset a-fib: Code(s): I48.91 - Unspecified atrial fibrillation Status: Acute Assessment and Plan: - new onset of AFib. -the patient was placed on amiodarone drip. -an echo has been ordered. -Cardiology consult greatly be appreciated -the patient has already been on Lovenox. -Isai Vasc score is 5. 04/20/2025 Heart rate is slightly better. Continue with amiodarone and Lovenox. (2) Congestive heart failure: Qualifiers: Heart failure type: combined systolic and diastolic Heart failure chronicity: chronic Qualified Code(s): I50.42 - Chronic combined systolic (congestive) and diastolic (congestive) heart failure Code(s): I50.9 - Heart failure, unspecified Status: Acute Assessment and Plan: -echo has been ordered. -last echo was 05/28/2023 with an EF of 50-55%. -his Entresto has been on hold at this time as he is not awake enough to take p.o. medications. -resume spironolactone when patient is able to take p.o. well -troponin is 0.050 which could be elevated from heart failure or from the AFib RVR. Continue to monitor troponins. 04/20/2025 Will continue to trend. Cardiology consult noted. (3) HTN (hypertension): Qualifiers: Hypertension type: essential hypertension Qualified Code(s): I10 - Essential (primary) hypertension Code(s): I10 - Essential (primary) hypertension Status: Acute Assessment and Plan: -the patient is currently on amiodarone. -Entresto is on hold at this time Blood pressure is under control. Will continue current treatment. (4) Mixed hyperlipidemia: Code(s): E78.2 - Mixed hyperlipidemia Status: Acute Assessment and Plan: -patient is not awake enough to take p.o. medication at this time. Resume home medication of rosuvastatin when able. (5) History of deep vein thrombosis: Code(s): Z86.718 - Personal history of other venous thrombosis and embolism Status: Acute Assessment and Plan: -weight based Lovenox for DVT and he has a history of PEs as well. He is currently in AFib as well. (6) Hodgkin's lymphoma, adult: Code(s): C81.90 - Hodgkin lymphoma, unspecified, unspecified site Status: Acute Assessment and Plan: -Hematology-Oncology consultation would greatly be appreciated. His CT scan does show slightly enlarged axillary lymph node. Malignancy not excluded. (7) Leukocytosis: Code(s): D72.829 - Elevated white blood cell count, unspecified Status: Acute Assessment and Plan: -his white count is up to 21.6. -blood cultures are pending -the patient was empirically started on cefepime and vancomycin. -hematology/oncology has been consulted as well. -daily CBCs (8) JONAH (obstructive sleep apnea): Code(s): G47.33 - Obstructive sleep apnea (adult) (pediatric) Status: Acute Assessment and Plan: -home settings for CPAP/BiPAP Subjective Date/time seen: 04/20/25 11:50 Interval history: Patient was seen during morning rounds today. Mild shortness of breath. No chest pain. Slightly confused. Review of Systems Review of Systems: ROS unobtainable: Yes unobtainable due to medical condition and unobtainable due to mental status Constitutional: Constitutional: Reports as per HPI Eyes: Eyes: Reports as per HPI and Reports no additional eye complaints ENT: Reports Normal hearing present Cardiovascular: Cardiovascular: Reports no additional cardiovascular complaints Respiratory: Respiratory: Reports as per HPI Gastrointestinal: Gastrointestinal: Reports as per HPI and Reports no additional gastrointestinal complaints Musculoskeletal: Musculoskeletal: Reports no additional musculoskeletal complaints Integumentary/Breasts: Skin/Breast: Reports system reviewed and no additional complaints, except as docu Neurologic: Reports system reviewed and no additional complaints, except as documented and Reports Normal hearing present Psychiatric: Psychiatric: Reports no additional psychiatric complaints and Reports as per HPI Hematologic/Lymphatic: Hematologic/Lymphatic: Reports no additional hematologic/lymphatic complaints Allergic/Immunologic: Allergic/Immunologic: Reports no additional allergic/immunologic complaints Exam Const: General: cooperative, no acute distress, well developed, awake, Physically active, average body habitus and well nourished Nutritional Appearance: average body habitus and well nourished Orientation/consciousness: oriented to person HENMT: Head: normal to inspection, No palpable skull fracture present and normocephalic Eyes: General: appearance normal, both eyes and all related structures Alignment and Position: alignment normal Periorbital: periorbital findings normal Eyelids: eyelids normal Conjunctivae: conjunctivae normal Sclera: sclerae normal Cornea: corneas normal Pupils: Equal, round and reactive pupils present and Pupil accommodation reflex normal EOM: EOMs intact bilaterally Neck: Neck: normal visual inspection Chest: Chest palpation & inspection: normal inspection of the chest Resp: Effort & Inspection: normal respiratory effort Auscultation: clear to auscultation bilaterally Cardio: Palpation: normal PMI Rate: regular rate Rhythm: regular rhythm Heart sounds: S1 normal heart sound present and S2 normal heart sound present Peripheral pulses: Peripheral pulses 2+ throughout GI: Inspection: normal to inspection Auscultation: normal bowel sounds Rectal Exam: deferred Back/Spine/Pelvis: Thoracic/Lumbar Spine: thoracic and lumbar spine normal to inspection Skin: General skin exam: normal color Lesions: no lesions Rashes: no rashes Trauma: no lacerations or abrasions Wounds: no wounds Hair: normal Nails: normal Neuro: General: oriented to person Cranial nerves: Yes Equal, round and reactive pupils present and Yes Normal hearing present Extrem: General: normal to inspection Right upper extremity: normal to inspection and shoulder/upper arm Left upper extremity: normal to inspection and shoulder/upper arm Right lower extremity: normal to inspection Left lower extremity: normal to inspection Psych: Appearance: grossly normal Mental Status: mental status grossly normal Objective Data Vital Signs Vital Signs: Vital Signs - 24 hr 04/19/25 17:26 04/19/25 18:41 04/19/25 19:02 Temperature 36.5 C Pulse Rate 136 H Respiratory Rate 30 H Blood Pressure 92/60 L 119/61 104/73 Pulse Oximetry 98 98 100 Oxygen Delivery Oxygen Flow Rate 04/19/25 19:11 04/19/25 19:22 04/19/25 19:31 Temperature Pulse Rate 119 H 129 H 126 H Respiratory Rate 18 20 20 Blood Pressure 105/66 97/65 L 94/69 L Pulse Oximetry 98 Oxygen Delivery Oxygen Flow Rate 04/19/25 19:53 04/19/25 20:37 04/19/25 20:37 Temperature 37.6 C H Pulse Rate 111 H 113 H 132 H Respiratory Rate 19 26 H 17 Blood Pressure 103/67 108/70 108/70 Pulse Oximetry 97 100 Oxygen Delivery Oxygen Flow Rate 04/19/25 20:41 04/19/25 20:51 04/19/25 21:01 Temperature Pulse Rate 114 H 116 H 133 H Respiratory Rate 16 20 20 Blood Pressure 100/68 117/61 101/55 L Pulse Oximetry 99 100 Oxygen Delivery Oxygen Flow Rate 04/19/25 21:14 04/19/25 21:21 04/19/25 21:22 Temperature Pulse Rate 129 H 125 H 133 H Respiratory Rate 14 16 21 H Blood Pressure 90/70 L 101/68 Pulse Oximetry 99 100 100 Oxygen Delivery Oxygen Flow Rate 04/19/25 21:30 04/19/25 21:31 04/19/25 21:35 Temperature Pulse Rate 122 H 122 H 114 H Respiratory Rate 18 18 21 H Blood Pressure 76/56 L 89/61 L Pulse Oximetry 100 100 100 Oxygen Delivery Oxygen Flow Rate 04/19/25 21:37 04/19/25 21:41 04/19/25 21:55 Temperature Pulse Rate 120 H 119 H 131 H Respiratory Rate 17 17 21 H Blood Pressure 106/64 100/57 L 89/62 L Pulse Oximetry 100 Oxygen Delivery Oxygen Flow Rate 04/19/25 21:59 04/19/25 22:00 04/19/25 22:01 Temperature Pulse Rate 120 H 130 H 120 H Respiratory Rate 17 20 12 Blood Pressure 86/68 L 85/67 L Pulse Oximetry Oxygen Delivery Oxygen Flow Rate 04/19/25 22:04 04/19/25 22:08 04/19/25 22:11 Temperature Pulse Rate 124 H 116 H 126 H Respiratory Rate 21 H 17 20 Blood Pressure 86/66 L 88/54 L 92/47 L Pulse Oximetry 100 100 Oxygen Delivery Oxygen Flow Rate 04/19/25 22:21 04/19/25 22:56 04/19/25 23:38 Temperature Pulse Rate 124 H 112 H 114 H Respiratory Rate 23 H Blood Pressure 91/54 L 104/70 96/59 L Pulse Oximetry Oxygen Delivery Oxygen Flow Rate 04/20/25 00:00 04/20/25 00:11 04/20/25 00:44 Temperature 36.8 C Pulse Rate 108 H 106 H 106 H Respiratory Rate 20 20 Blood Pressure 96/59 L Pulse Oximetry 99 99 Oxygen Delivery Nasal Cannula Oxygen Flow Rate 3 04/20/25 02:00 04/20/25 02:00 04/20/25 02:00 Temperature Pulse Rate 98 98 98 Respiratory Rate 22 H Blood Pressure 105/57 L 105/57 L Pulse Oximetry 96 Oxygen Delivery Oxygen Flow Rate 04/20/25 04:00 04/20/25 04:00 04/20/25 04:44 Temperature Pulse Rate 102 H 102 H 102 H Respiratory Rate 22 H Blood Pressure 103/54 L Pulse Oximetry 96 Oxygen Delivery Nasal Cannula Oxygen Flow Rate 3 04/20/25 04:56 04/20/25 06:00 04/20/25 06:00 Temperature 36.8 C Pulse Rate 98 100 100 Respiratory Rate 22 H Blood Pressure 103/54 L 91/63 L Pulse Oximetry 100 98 Oxygen Delivery Oxygen Flow Rate 04/20/25 06:00 04/20/25 07:45 04/20/25 10:00 Temperature 36.9 C 36.9 C Pulse Rate 100 88 104 H Respiratory Rate 20 24 H Blood Pressure 91/63 L 172/82 H 104/58 L Pulse Oximetry 95 100 Oxygen Delivery Oxygen Flow Rate Intake/Output Intake/Output: Intake & Output 04/17/25 04/18/25 04/19/25 04/20/25 23:59 23:59 23:59 23:59 Intake Total 1500 600.0 Output Total 700 Balance 1500 -100.0 Meds/Results Medications: Active Medications Generic Name Dose Route Start Last Admin Trade Name Freq PRN Reason Stop Dose Admin Acetaminophen 650 mg 04/19/25 21:40 Acetaminophen 325 Mg Tablet PO Q4H PRN Mild Pain (1-3) or Fever Enoxaparin Sodium 108 mg 04/20/25 10:00 04/20/25 09:31 Enoxaparin 120 Mg/0.8 Ml Syringe SUB-Q 108 mg Q12H ANGELICA Administration Amiodarone HCl/Dextrose 360 mg in 200 mls @ 16.667 mls/hr 04/20/25 04:44 04/20/25 06:00 Nexterone 360 Mg/D5w 200 Ml IV CONT 0.5 mg/min .Q12H ANGELICA 16.67 mls/hr 0.5 MG/MIN Infusion Vancomycin HCl 1,500 mg in 500 mls @ 250 mls/hr 04/21/25 00:00 Vancomycin 1,500 Mg/Ns 500 Ml IVPB Q24H ANGELICA Cefepime HCl 2 gm/ Sodium 50 mls @ 100 mls/hr 04/20/25 10:00 04/20/25 09:33 Chloride IVPB 100 mls/hr Q12H ANGELICA Administration Ondansetron HCl 4 mg 04/19/25 21:40 Ondansetron Inj 4 Mg/2 Ml Vial IV PUSH Q4H PRN Nausea Perflutren Lipid Microsphere 0 ml 04/19/25 21:40 Perflutren Lipid Microspheres 1.5 Ml Vial Diluted To 10 Ml Total Volume IV PUSH 04/22/25 21:41 ONCE PRN adequate visualization Protocol Rivastigmine 1 patch 04/20/25 09:00 04/20/25 09:31 Rivastigmine Tartrate 4.6 Mg Patch TRANSDERM 1 patch DAILY ANGELICA Administration Radiology Results: ITS Impressions Chest X-Ray 04/19/25 18:25 IMPRESSION: 1. Suspect left perihilar airspace disease. Can consider PA and lateral films with deep inspiration. Head CT 04/19/25 20:34 IMPRESSION: No acute intracranial hemorrhage or extra axial fluid collections. All CT scans at this facility are performed using low dose modulation techniques as appropriate to perform exam including the following: automated exposure control; use of iterative reconstruction technique; adjustment of the mA and/or kV according to patient size (this includes techniques or standardized protocols for targeted exams where dose is matched to indication/reason for exam). Chest/Abdomen/Pelvis CTA 04/19/25 20:37 IMPRESSION: CHEST- 1. Mildly enlarged lymph nodes left axilla. Malignancy not excluded. 2. 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 Recommend surgical consultation. 3. No PE or other acute cardiopulmonary findings. ABDOMEN/PELVIS- 1. No acute abdominopelvic findings. Modified Barium Swallow 04/20/25 11:31 IMPRESSION: Oropharyngeal dysphagia with laryngeal penetration and silent aspiration. Please correlate with speech pathologist findings and specific feeding recommendations. Labs Labs: Laboratory Results - last 24 hr 04/19/25 04/19/25 04/19/25 17:57 18:00 19:49 WBC 21.6 H RBC 4.61 Hgb 12.5 L D Hct 40.2 L MCV 87.2 MCH 27.1 MCHC 31.1 L RDW 16.0 H Plt Count 342 MPV 9.7 Immature Gran % (Auto) Not Reportable Neut % (Auto) Not Reportable Lymph % (Auto) Not Reportable [place] % (Auto) Not Reportable Eos % (Auto) Not Reportable Baso % (Auto) Not Reportable Lymph # (Auto) Not Reportable [place] # (Auto) Not Reportable Eos # (Auto) Not Reportable Baso # (Auto) Not Reportable Abs Immat Gran (auto) Not Reportable Absolute Neuts (auto) Not Reportable Absolute Nucleated RBC Not Reportable Total Counted 100 Neutrophils % (Manual) 79 H Band Neutrophils % 5 Lymphocytes % (Manual) 7.0 L Monocytes % (Manual) 9 Nucleated RBC % Not Reportable Abs Neuts (Manual) 18.14 H Abs Lymphs (Manual) 1.51 Abs Monocytes (Manual) 1.94 H Platelet Estimate Adequate Hypochromasia 1+ Anisocytosis 2+ Schistocytes None seen PT 15.2 H INR 1.2 APTT 41.8 H Sodium 142 Potassium 3.0 L Chloride 104 Carbon Dioxide 23 Anion Gap 15 H BUN 24 H Creatinine 1.36 H Estim Creat Clear Calc 51 Estimated GFR 51 L Glucose 131 H Lactic Acid 1.8 Calcium 8.7 Magnesium Total Bilirubin 1.1 AST 41 ALT 46 Alkaline Phosphatase 119 Troponin I NT-Pro-B Natriuret Pep 3820 H Total Protein 7.2 Albumin 3.8 Urine Color Dark yellow Urine Appearance Turbid H Urine pH 5.5 Ur Specific [place] 1.022 Urine Protein 3+ H Urine Glucose (UA) Negative Urine Ketones 1+ H Ur Blood (Man) 2+ H Urine Nitrate Negative Urine Bilirubin Negative Urine Urobilinogen 1.0 Leukocyte Esterase Rfl Negative Urine RBC 0-2 Urine WBC 0-5 Ur Squamous Epith Cells Many H Urine Bacteria None seen Urine Casts >20 Granular Casts Present 04/19/25 04/20/25 20:02 04:24 WBC RBC Hgb Hct MCV MCH MCHC RDW Plt Count MPV Immature Gran % (Auto) Neut % (Auto) Lymph % (Auto) [place] % (Auto) Eos % (Auto) Baso % (Auto) Lymph # (Auto) [place] # (Auto) Eos # (Auto) Baso # (Auto) Abs Immat Gran (auto) Absolute Neuts (auto) Absolute Nucleated RBC Total Counted Neutrophils % (Manual) Band Neutrophils % Lymphocytes % (Manual) Monocytes % (Manual) Nucleated RBC % Abs Neuts (Manual) Abs Lymphs (Manual) Abs Monocytes (Manual) Platelet Estimate Hypochromasia Anisocytosis Schistocytes PT INR APTT Sodium Potassium Chloride Carbon Dioxide Anion Gap BUN Creatinine 1.19 Estim Creat Clear Calc 58 Estimated GFR 60 Glucose Lactic Acid Calcium Magnesium 1.8 Total Bilirubin AST ALT Alkaline Phosphatase Troponin I 0.050 H* 0.049 H* NT-Pro-B Natriuret Pep Total Protein Albumin Urine Color Urine Appearance Urine pH Ur Specific [place] Urine Protein Urine Glucose (UA) Urine Ketones Ur Blood (Man) Urine Nitrate Urine Bilirubin Urine Urobilinogen Leukocyte Esterase Rfl Urine RBC Urine WBC Ur Squamous Epith Cells Urine Bacteria Urine Casts Granular Casts Quality VTE Prophylaxis VTE prophylaxis: pharmacologic ordered
--- NOTE | 2025-04-20 12:02 | IVDEFINITY ---
Prior to administration of IV Definity the patient was educated on the risks and benefits of the imaging enhancing agent including potential adverse side effects. The patient verbalized understanding. Allergies were verified. No exclusion criteria were identified and at least one of the following inclusion criteria were met: 1) physician request, 2) patient technically difficult to image (per the [place] [employer] guidelines of two or more segments not discernable within the apical view), or 3) questionable left ventricular function. ?
[2025-04-20 13:59] LABS: Anion Gap 7 mmol/L (4-12); Blood Urea Nitrogen 18 mg/dL (9-20); Calcium 8.2 mg/dL (8.4-10.2); Carbon Dioxide 25 mmol/L (22-30); Chloride 108 mmol/L (98-107); Estimated CRCL calculation 62 ml/min; Estimated Glomerular Filt Rate > 60; Glucose 118 mg/dL (65-110); Potassium 3.2 mmol/L (3.4-5.0); Sodium 140 mmol/L (137-145)
[2025-04-20 14:23] LABS: Thyroid Stimulating Hormone Reflex 1.200 uIU/mL (0.465-4.68)
--- NOTE | 2025-04-20 14:27 | PCSTNOTE ---
Please refer to the Modified Barium Swallow Evaluation in the EMR. The above patient was seen for an MBS due to overt s/s of aspiration being exhibited during the BSE. Pt was admitted with altered MS and weakness, but extensive PMH includes GERD without esophagitis, TIA, cognitive decline, obstructive sleep apnea, and short-term memory loss. Pt was seated for a lateral view. The patient's size made positioning for a full view of the larynx difficult. Full view of his vocal cords was obstructed by his shoulder. Pt was not able to assist with repositioning and was fixated on wanting to use the bathroom (reportedly all morning). Pt was presented with 4-5 ml of thin liquid via a spoon and a tsp amount of barium pudding via a spoon. During the oral stages: with the thin liquid there was no labial closure; contents initially pooled in the anterior sulcus; a portion of the contents spilled posteriorly with minimal lingual movement; contents spilled over the tongue base into the valleculae and pyriform sinuses; remaining portion of the contents was then propelled posteriorly with weak lingual movement. No oral leakage occurred. With the pudding trial: he exhibited difficulty propelling contents posteriorly; contents eventually spilled into the pharynx. During the pharyngeal stage: with the thin liquid, pooling of contents to the level of the pyriform sinuses; swallow occurred, but with minimal movement/clearance of contents; laryngeal penetration to the level of the cords occurred after the swallow, for which the patient had no sensation. Due to the pts size and poor positioning, viewing of aspiration did not occur, but it is suspected. With the pudding trial, a weak swallow was exhibited with poor pharyngeal clearance (severe residual in the vallecula and pyriform sinuses); a small amount of the residual spilled into the laryngeal vestibule after the swallow. Despite multiple verbal cues, pressing on the dorsum of the tongue, and a very small liquid wash ~1/8 tsp, the pt did not dry swallow to clear pharyngeal residue. Due to pt making no effort to clear the penetration, aspiration is suspected. Impression: severe oral and pharyngeal dysphagia as described above Recommendation: NPO; ST to tx dysphagia. ST will make recommendation re when/if repeat MBS is necessary.
[2025-04-20] MEDS: DEXTROSE 5%/0.9% SOD CHL 1,000 ML 75 ML IV CONT (17:42)
[2025-04-20] MEDS: HYDROmorphone HCL INJ (*CRX) 1 MG/ML SYR 0.5 MG IV PUSH (22:30)
[2025-04-21] VITALS (18 sets, daily range): BP systolic 100–134; BP diastolic 51–90; PULSE 89–116; RESP 16–24; TEMP 36.4–37; O2SAT 96–100
[2025-04-21] MEDS: VANCOMYCIN 1,500 MG/NS 500 ML 1,500 MG/500 ML BAG 250 MG IVPB (00:18)
[2025-04-21 05:03] LABS: Hematocrit 30.1 % (42.0-52.0); Hemoglobin 9.2 g/dL (14.0-18.0); Immature Granulocyte Percent A 1.4 % (0-0.5); Lymphocytes Absolute Auto 0.77 K/mm3 (0.9-3.2); Mean Corpuscular HGB Conc 30.6 g/dl (32-36); Mean Corpuscular Hemoglobin 27.4 pg (26-34); Mean Corpuscular Volume 89.6 fl (80-100); Nucleated Red Blood Cells Absolute Auto 0.000 K/mm3 (0.0-0.012); Nucleated Red Blood Cells Perc 0.0 % (0.0-0.2); Platelet Count Result 265 k/mm3 (150-375); Red Blood Count 3.36 M/mm3 (4.6-6.20); White Blood Count 14.0 K/mm3 (4.5-10.0)
[2025-04-21 05:16] LABS: Alanine Aminotransferase 46 U/L (6-50); Albumin Level 3.0 g/dL (3.5-5.1); Alkaline Phosphatase 99 U/L (38-126); Anion Gap 8 mmol/L (4-12); Aspartate Amino Transferase 65 U/L (17-59); Bilirubin,Total 0.6 mg/dL (0.2-1.3); Blood Urea Nitrogen 16 mg/dL (9-20); Calcium 8.2 mg/dL (8.4-10.2); Carbon Dioxide 26 mmol/L (22-30); Chloride 109 mmol/L (98-107); Estimated CRCL calculation 62 ml/min; Estimated Glomerular Filt Rate > 60; Glucose 121 mg/dL (65-110); Sodium 143 mmol/L (137-145); Total Protein 5.9 g/dL (6.3-8.2)
[2025-04-21 05:18] LABS: Potassium 2.5 mmol/L (3.4-5.0)
[2025-04-21] MEDS: KCL 20 MEQ/SW 100 ML 100 ML 50 MEQ IVPB (05:56)
[2025-04-21] MEDS: RIVASTIGMINE TARTRATE 4.6 MG PATCH 1 PATCH TRANSDERM (09:26)
[2025-04-21] MEDS: CEFEPIME 2 GM in SODIUM CHLORIDE 0.9% IV 50 ML 100 ML IVPB ×2 (09:27→21:33)
[2025-04-21] MEDS: ENOXAPARIN 120 MG/0.8 ML SYRINGE 108 MG SUB-Q ×2 (09:28→21:32)
--- NOTE | 2025-04-21 10:43 | P.PNIM_ITS ---
Progress Note: A&P Assessment and Plan (1) New onset a-fib: Code(s): I48.91 - Unspecified atrial fibrillation Status: Acute Assessment and Plan: - new onset of AFib. -the patient was placed on amiodarone drip. -an echo has been ordered. -Cardiology consult greatly be appreciated -the patient has already been on Lovenox. -Isai Vasc score is 5. 04/21/2025 Heart rate is slightly better controlled. Will continue current treatment monitor closely (2) Congestive heart failure: Qualifiers: Heart failure type: combined systolic and diastolic Heart failure chronicity: chronic Qualified Code(s): I50.42 - Chronic combined systolic (congestive) and diastolic (congestive) heart failure Code(s): I50.9 - Heart failure, unspecified Status: Acute Assessment and Plan: -echo has been ordered. -last echo was 05/28/2023 with an EF of 50-55%. -his Entresto has been on hold at this time as he is not awake enough to take p.o. medications. -resume spironolactone when patient is able to take p.o. well -troponin is 0.050 which could be elevated from heart failure or from the AFib RVR. Continue to monitor troponins. demand ischemia 04/21/2025 Cardiology consult noted. Plan is to continue current treatment monitor closely (3) HTN (hypertension): Qualifiers: Hypertension type: essential hypertension Qualified Code(s): I10 - Essential (primary) hypertension Code(s): I10 - Essential (primary) hypertension Status: Acute Assessment and Plan: -the patient is currently on amiodarone. -Entresto is on hold at this time -his current blood pressure is 103/54. (4) Mixed hyperlipidemia: Code(s): E78.2 - Mixed hyperlipidemia Status: Acute Assessment and Plan: -patient is not awake enough to take p.o. medication at this time. Resume home medication of rosuvastatin when able. (5) History of deep vein thrombosis: Code(s): Z86.718 - Personal history of other venous thrombosis and embolism Status: Acute Assessment and Plan: -weight based Lovenox for DVT and he has a history of PEs as well. He is currently in AFib as well. (6) Hodgkin's lymphoma, adult: Code(s): C81.90 - Hodgkin lymphoma, unspecified, unspecified site Status: Acute Assessment and Plan: -Hematology-Oncology consultation would greatly be appreciated. His CT scan does show slightly enlarged axillary lymph node. Malignancy not excluded. (7) Leukocytosis: Code(s): D72.829 - Elevated white blood cell count, unspecified Status: Acute Assessment and Plan: -his white count is up to 21.6. -blood cultures are pending -the patient was empirically started on cefepime and vancomycin. -hematology/oncology has been consulted as well. -daily CBCs (8) JONAH (obstructive sleep apnea): Code(s): G47.33 - Obstructive sleep apnea (adult) (pediatric) Status: Acute Assessment and Plan: -home settings for CPAP/BiPAP Subjective Date/time seen: 04/21/25 10:43 Interval history: Patient was seen during morning rounds today. More alert and awake. No new overnight complaints. Mild shortness of breath. No chest pain. Slightly confused. Review of Systems Review of Systems: ROS unobtainable: Yes unobtainable due to medical condition and unobtainable due to mental status Constitutional: Constitutional: Reports as per HPI Eyes: Eyes: Reports as per HPI and Reports no additional eye complaints ENT: Reports Normal hearing present Cardiovascular: Cardiovascular: Reports no additional cardiovascular complaints Respiratory: Respiratory: Reports as per HPI Gastrointestinal: Gastrointestinal: Reports as per HPI and Reports no additional gastrointestinal complaints Musculoskeletal: Musculoskeletal: Reports no additional musculoskeletal complaints Integumentary/Breasts: Skin/Breast: Reports system reviewed and no additional complaints, except as docu Neurologic: Reports system reviewed and no additional complaints, except as documented and Reports Normal hearing present Psychiatric: Psychiatric: Reports no additional psychiatric complaints and Reports as per HPI Hematologic/Lymphatic: Hematologic/Lymphatic: Reports no additional hematologic/lymphatic complaints Allergic/Immunologic: Allergic/Immunologic: Reports no additional allergic/immunologic complaints Exam Const: General: cooperative, no acute distress, well developed, awake, Physically active, average body habitus and well nourished Nutritional Appearance: average body habitus and well nourished Orientation/co nsciousness: oriented to person HENMT: Head: normal to inspection, No palpable skull fracture present and normocephalic Eyes: General: appearance normal, both eyes and all related structures Alignment and Position: alignment normal Periorbital: periorbital findings normal Eyelids: eyelids normal Conjunctivae: conjunctivae normal Sclera: sclerae normal Cornea: corneas normal Pupils: Equal, round and reactive pupils present and Pupil accommodation reflex normal EOM: EOMs intact bilaterally Neck: Neck: normal visual inspection Chest: Chest palpation & inspection: normal inspection of the chest Resp: Effort & Inspection: normal respiratory effort Auscultation: clear to auscultation bilaterally Cardio: Palpation: normal PMI Rate: regular rate Rhythm: regular rhythm Heart sounds: S1 normal heart sound present and S2 normal heart sound present Peripheral pulses: Peripheral pulses 2+ throughout GI: Inspection: normal to inspection Auscultation: normal bowel sounds Rectal Exam: deferred Back/Spine/Pelvis: Thoracic/Lumbar Spine: thoracic and lumbar spine normal to inspection Skin: General skin exam: normal color Lesions: no lesions Rashes: no rashes Trauma: no lacerations or abrasions Wounds: no wounds Hair: normal Nails: normal Neuro: General: oriented to person Cranial nerves: Yes Equal, round and reactive pupils present and Yes Normal hearing present Extrem: General: normal to inspection Right upper extremity: normal to inspection and shoulder/upper arm Left upper extremity: normal to inspection and shoulder/upper arm Right lower extremity: normal to inspection Left lower extremity: normal to inspection Psych: Appearance: grossly normal Mental Status: mental status grossly normal Objective Data Vital Signs Vital Signs: Vital Signs - 24 hr 04/20/25 12:00 04/20/25 12:00 04/20/25 12:08 Temperature 37.9 C H Pulse Rate 112 H 112 H 98 Respiratory Rate 24 H Blood Pressure 108/60 108/61 Pulse Oximetry 100 Oxygen Delivery Oxygen Flow Rate 04/20/25 14:00 04/20/25 14:05 04/20/25 16:00 Temperature 37.2 C 36.8 C Pulse Rate 104 H 100 110 H Respiratory Rate 24 H 22 H Blood Pressure 126/58 L 104/48 L Pulse Oximetry 95 97 Oxygen Delivery Oxygen Flow Rate 04/20/25 16:00 04/20/25 16:00 04/20/25 16:44 Temperature Pulse Rate 108 H 108 H 90 Respiratory Rate Blood Pressure 104/48 L 100/66 Pulse Oximetry Oxygen Delivery Oxygen Flow Rate 04/20/25 17:52 04/20/25 18:00 04/20/25 18:00 Temperature 36.6 C Pulse Rate 90 104 H 112 H Respiratory Rate 20 Blood Pressure 100/66 100/66 Pulse Oximetry 99 Oxygen Delivery Oxygen Flow Rate 04/20/25 18:00 04/20/25 20:00 04/20/25 20:00 Temperature 36.8 C Pulse Rate 104 H 106 H 81 Respiratory Rate 20 20 Blood Pressure 100/66 121/69 Pulse Oximetry 98 98 Oxygen Delivery Nasal Cannula Oxygen Flow Rate 3 04/20/25 20:00 04/20/25 20:00 04/20/25 21:47 Temperature Pulse Rate 89 89 Respiratory Rate Blood Pressure 121/69 Pulse Oximetry 98 Oxygen Delivery Nasal Cannula Oxygen Flow Rate 3 04/20/25 22:00 04/20/25 22:00 04/20/25 22:00 Temperature Pulse Rate 112 H 112 H 112 H Respiratory Rate 22 H Blood Pressure 123/62 123/62 Pulse Oximetry 98 Oxygen Delivery Oxygen Flow Rate 04/20/25 23:30 04/21/25 00:00 04/21/25 00:00 Temperature 37.2 C Pulse Rate 110 H 98 98 Respiratory Rate 22 H 22 H Blood Pressure 129/67 Pulse Oximetry 98 98 Oxygen Delivery Nasal Cannula Oxygen Flow Rate 3 04/21/25 00:00 04/21/25 02:00 04/21/25 02:00 Temperature Pulse Rate 98 112 H 112 H Respiratory Rate 20 Blood Pressure 129/67 116/62 Pulse Oximetry 98 Oxygen Delivery Oxygen Flow Rate 04/21/25 02:00 04/21/25 04:00 04/21/25 04:00 Temperature Pulse Rate 112 H 116 H 116 H Respiratory Rate 20 Blood Pressure 116/62 107/69 Pulse Oximetry 98 Oxygen Delivery Nasal Cannula Oxygen Flow Rate 3 04/21/25 04:00 04/21/25 04:00 04/21/25 04:15 Temperature 36.6 C Pulse Rate 116 H 116 H 102 H Respiratory Rate 22 H Blood Pressure 107/69 Pulse Oximetry 98 Oxygen Delivery Oxygen Flow Rate 04/21/25 04:15 04/21/25 06:00 04/21/25 06:00 Temperature Pulse Rate 102 H 104 H 102 H Respiratory Rate Blood Pressure 115/51 L Pulse Oximetry Oxygen Delivery Oxygen Flow Rate 04/21/25 06:00 04/21/25 08:00 04/21/25 09:57 Temperature 36.4 C L Pulse Rate 102 H 98 97 Respiratory Rate 22 H 22 H 18 Blood Pressure 115/51 L 112/68 112/62 Pulse Oximetry 98 100 Oxygen Delivery Oxygen Flow Rate Intake/Output Intake/Output: Intake & Output 04/18/25 04/19/25 04/20/25 04/21/25 23:59 23:59 23:59 23:59 Intake Total 1500 947.6 633.3 Output Total 1100 500 Balance 1500 -152.4 133.3 Meds/Results Medications: Active Medications Generic Name Dose Route Start Last Admin Trade Name Freq PRN Reason Stop Dose Admin Acetaminophen 650 mg 04/19/25 21:40 Acetaminophen 325 Mg Tablet PO Q4H PRN Mild Pain (1-3) or Fever Enoxaparin Sodium 108 mg 04/20/25 10:00 04/21/25 09:28 Enoxaparin 120 Mg/0.8 Ml Syringe SUB-Q 108 mg Q12H ANGELICA Administration Amiodarone HCl/Dextrose 360 mg in 200 mls @ 16.667 mls/hr 04/20/25 04:44 04/21/25 06:00 Nexterone 360 Mg/D5w 200 Ml IV CONT 0.5 mg/min .Q12H ANGELICA 16.67 mls/hr 0.5 MG/MIN Infusion Vancomycin HCl 1,500 mg in 500 mls @ 250 mls/hr 04/21/25 00:00 04/21/25 02:20 Vancomycin 1,500 Mg/Ns 500 Ml IVPB Infused Q24H ANGELICA Infusion Cefepime HCl 2 gm/ Sodium 50 mls @ 100 mls/hr 04/20/25 10:00 04/21/25 09:27 Chloride IVPB 100 mls/hr Q12H ANGELICA Administration Dextrose/Sodium Chloride 1,000 mls @ 75 mls/hr 04/20/25 15:50 04/20/25 17:42 Dextrose 5% Sodium Chloride 0.9% IV CONT 75 mls/hr .[id number] ANGELICA Administration Potassium Chloride 40 meq/ 520 mls @ 130 mls/hr 04/21/25 10:41 Sodium Chloride IVPB 04/21/25 14:40 ONCE ONE Potassium Chloride 40 meq/ 520 mls @ 130 mls/hr 04/21/25 18:00 Sodium Chloride IVPB 04/21/25 21:59 ONCE ONE Ondansetron HCl 4 mg 04/19/25 21:40 Ondansetron Inj 4 Mg/2 Ml Vial IV PUSH Q4H PRN Nausea Rivastigmine 1 patch 04/20/25 09:00 04/21/25 09:26 Rivastigmine Tartrate 4.6 Mg Patch TRANSDERM 1 patch DAILY ANGELICA Administration Radiology Results: ITS Impressions Chest X-Ray 04/19/25 18:25 IMPRESSION: 1. Suspect left perihilar airspace disease. Can consider PA and lateral films with deep inspiration. Head CT 04/19/25 20:34 IMPRESSION: No acute intracranial hemorrhage or extra axial fluid collections. All CT scans at this facility are performed using low dose modulation techniques as appropriate to perform exam including the following: automated exposure control; use of iterative reconstruction technique; adjustment of the mA and/or kV according to patient size (this includes techniques or standardized protocols for targeted exams where dose is matched to indication/reason for exam). Chest/Abdomen/Pelvis CTA 04/19/25 20:37 IMPRESSION: CHEST- 1. Mildly enlarged lymph nodes left axilla. Malignancy not excluded. 2. 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 Recommend surgical consultation. 3. No PE or other acute cardiopulmonary findings. ABDOMEN/PELVIS- 1. No acute abdominopelvic findings. Modified Barium Swallow 04/20/25 11:31 IMPRESSION: Oropharyngeal dysphagia with laryngeal penetration and silent aspiration. Please correlate with speech pathologist findings and specific feeding recommendations. Labs Labs: Laboratory Results - last 24 hr 04/20/25 04/20/25 04/21/25 13:27 17:42 00:11 WBC RBC Hgb Hct MCV MCH MCHC RDW Plt Count MPV Immature Gran % (Auto) Neut % (Auto) Lymph % (Auto) [place] % (Auto) Eos % (Auto) Baso % (Auto) Lymph # (Auto) [place] # (Auto) Eos # (Auto) Baso # (Auto) Abs Immat Gran (auto) Absolute Neuts (auto) Absolute Nucleated RBC Nucleated RBC % Sodium 140 Potassium 3.2 L Chloride 108 H Carbon Dioxide 25 Anion Gap 7 BUN 18 Creatinine 1.10 Estim Creat Clear Calc 62 Estimated GFR > 60 Glucose 118 H POC Capillary Glucose 117 H 136 H Calcium 8.2 L Total Bilirubin AST ALT Alkaline Phosphatase Total Protein Albumin TSH (Reflex) 1.200 04/21/25 04:34 WBC 14.0 H RBC 3.36 L Hgb 9.2 L D Hct 30.1 L MCV 89.6 MCH 27.4 MCHC 30.6 L RDW 15.9 H Plt Count 265 MPV 10.4 Immature Gran % (Auto) 1.4 H Neut % (Auto) 84.0 H Lymph % (Auto) 5.5 L [place] % (Auto) 6.8 Eos % (Auto) 1.9 Baso % (Auto) 0.4 Lymph # (Auto) 0.77 L [place] # (Auto) 1.0 H Eos # (Auto) 0.3 Baso # (Auto) 0.1 Abs Immat Gran (auto) 0.19 H Absolute Neuts (auto) 11.7 H Absolute Nucleated RBC 0.000 Nucleated RBC % 0.0 Sodium 143 Potassium 2.5 L* Chloride 109 H Carbon Dioxide 26 Anion Gap 8 BUN 16 Creatinine 1.11 Estim Creat Clear Calc 62 Estimated GFR > 60 Glucose 121 H POC Capillary Glucose Calcium 8.2 L Total Bilirubin 0.6 AST 65 H ALT 46 Alkaline Phosphatase 99 Total Protein 5.9 L Albumin 3.0 L TSH (Reflex) Quality VTE Prophylaxis VTE prophylaxis: pharmacologic ordered
--- NOTE | 2025-04-21 11:55 | PM.PNCARD ---
Progress Note: A&P Assessment and Plan (1) New onset a-fib: Code(s): I48.91 - Unspecified atrial fibrillation Status: Acute Plan Persistent atrial fibrillation History of cardiomyopathy currently compensated History of thoracic aortic aneurysm Subsegmental pulmonary embolism Patient failed swallow test Plan Continue Lovenox for anticoagulation 1 milligram/kg subQ b.i.d. Amiodarone infusion-0.5 mg per minute Subjective Date/time seen: 04/21/25 11:55 Interval history: Patient seen for atrial fibrillation with RVR No acute events Telemetry AFib heart rate 100-110 Review of Systems Review of Systems: All systems reviewed & are unremarkable except as noted in HPI and below Exam Const: Other: lethargic Neck: Neck: supple and No no JVD Resp: Auscultation: diminished lung sounds Cardio: Rate: tachycardic Rhythm: abnormal rhythm Heart sounds: no gallops, no murmurs and no rubs Other: irreg irreg Extrem: General: edema right Objective Data Vital Signs Vital Signs: Vital Signs - 24 hr 04/20/25 12:00 04/20/25 12:00 04/20/25 12:08 Temperature 37.9 C H Pulse Rate 112 H 112 H 98 Respiratory Rate 24 H Blood Pressure 108/60 108/61 Pulse Oximetry 100 Oxygen Delivery Oxygen Flow Rate 04/20/25 14:00 04/20/25 14:05 04/20/25 16:00 Temperature 37.2 C 36.8 C Pulse Rate 104 H 100 110 H Respiratory Rate 24 H 22 H Blood Pressure 126/58 L 104/48 L Pulse Oximetry 95 97 Oxygen Delivery Oxygen Flow Rate 04/20/25 16:00 04/20/25 16:00 04/20/25 16:44 Temperature Pulse Rate 108 H 108 H 90 Respiratory Rate Blood Pressure 104/48 L 100/66 Pulse Oximetry Oxygen Delivery Oxygen Flow Rate 04/20/25 17:52 04/20/25 18:00 04/20/25 18:00 Temperature 36.6 C Pulse Rate 90 104 H 112 H Respiratory Rate 20 Blood Pressure 100/66 100/66 Pulse Oximetry 99 Oxygen Delivery Oxygen Flow Rate 04/20/25 18:00 04/20/25 20:00 04/20/25 20:00 Temperature 36.8 C Pulse Rate 104 H 106 H 81 Respiratory Rate 20 20 Blood Pressure 100/66 121/69 Pulse Oximetry 98 98 Oxygen Delivery Nasal Cannula Oxygen Flow Rate 3 04/20/25 20:00 04/20/25 20:00 04/20/25 21:47 Temperature Pulse Rate 89 89 Respiratory Rate Blood Pressure 121/69 Pulse Oximetry 98 Oxygen Delivery Nasal Cannula Oxygen Flow Rate 3 04/20/25 22:00 04/20/25 22:00 04/20/25 22:00 Temperature Pulse Rate 112 H 112 H 112 H Respiratory Rate 22 H Blood Pressure 123/62 123/62 Pulse Oximetry 98 Oxygen Delivery Oxygen Flow Rate 04/20/25 23:30 04/21/25 00:00 04/21/25 00:00 Temperature 37.2 C Pulse Rate 110 H 98 98 Respiratory Rate 22 H 22 H Blood Pressure 129/67 Pulse Oximetry 98 98 Oxygen Delivery Nasal Cannula Oxygen Flow Rate 3 04/21/25 00:00 04/21/25 02:00 04/21/25 02:00 Temperature Pulse Rate 98 112 H 112 H Respiratory Rate 20 Blood Pressure 129/67 116/62 Pulse Oximetry 98 Oxygen Delivery Oxygen Flow Rate 04/21/25 02:00 04/21/25 04:00 04/21/25 04:00 Temperature Pulse Rate 112 H 116 H 116 H Respiratory Rate 20 Blood Pressure 116/62 107/69 Pulse Oximetry 98 Oxygen Delivery Nasal Cannula Oxygen Flow Rate 3 04/21/25 04:00 04/21/25 04:00 04/21/25 04:15 Temperature 36.6 C Pulse Rate 116 H 116 H 102 H Respiratory Rate 22 H Blood Pressure 107/69 Pulse Oximetry 98 Oxygen Delivery Oxygen Flow Rate 04/21/25 04:15 04/21/25 06:00 04/21/25 06:00 Temperature Pulse Rate 102 H 104 H 102 H Respiratory Rate Blood Pressure 115/51 L Pulse Oximetry Oxygen Delivery Oxygen Flow Rate 04/21/25 06:00 04/21/25 08:00 04/21/25 08:00 Temperature 36.4 C L Pulse Rate 102 H 98 98 Respiratory Rate 22 H 22 H Blood Pressure 115/51 L 112/68 112/68 Pulse Oximetry 98 100 Oxygen Delivery Oxygen Flow Rate 04/21/25 08:00 04/21/25 08:00 04/21/25 09:57 Temperature Pulse Rate 103 H 97 Respiratory Rate 18 Blood Pressure 112/62 Pulse Oximetry 100 Oxygen Delivery Nasal Cannula Oxygen Flow Rate 3 04/21/25 10:00 Temperature Pulse Rate 97 Respiratory Rate Blood Pressure 112/62 Pulse Oximetry Oxygen Delivery Oxygen Flow Rate Intake/Output Intake/Output: Intake & Output 04/18/25 04/19/25 04/20/25 04/21/25 23:59 23:59 23:59 23:59 Intake Total 1500 947.6 699.9 Output Total 1100 500 Balance 1500 -152.4 199.9 Meds/Results Medications: Active Medications Generic Name Dose Route Start Last Admin Trade Name Freq PRN Reason Stop Dose Admin Acetaminophen 650 mg 04/19/25 21:40 Acetaminophen 325 Mg Tablet PO Q4H PRN Mild Pain (1-3) or Fever Enoxaparin Sodium 108 mg 04/20/25 10:00 04/21/25 09:28 Enoxaparin 120 Mg/0.8 Ml Syringe SUB-Q 108 mg Q12H ANGELICA Administration Amiodarone HCl/Dextrose 360 mg in 200 mls @ 16.667 mls/hr 04/20/25 04:44 04/21/25 10:00 Nexterone 360 Mg/D5w 200 Ml IV CONT 0.5 mg/min .Q12H ANGELICA 16.67 mls/hr 0.5 MG/MIN Infusion Vancomycin HCl 1,500 mg in 500 mls @ 250 mls/hr 04/21/25 00:00 04/21/25 02:20 Vancomycin 1,500 Mg/Ns 500 Ml IVPB Infused Q24H ANGELICA Infusion Cefepime HCl 2 gm/ Sodium 50 mls @ 100 mls/hr 04/20/25 10:00 04/21/25 09:27 Chloride IVPB 100 mls/hr Q12H ANGELICA Administration Dextrose/Sodium Chloride 1,000 mls @ 75 mls/hr 04/20/25 15:50 04/20/25 17:42 Dextrose 5% Sodium Chloride 0.9% IV CONT 75 mls/hr .[id number] ANGELICA Administration Potassium Chloride 40 meq/ 520 mls @ 130 mls/hr 04/21/25 10:41 Sodium Chloride IVPB 04/21/25 14:40 ONCE ONE Potassium Chloride 40 meq/ 520 mls @ 130 mls/hr 04/21/25 18:00 Sodium Chloride IVPB 04/21/25 21:59 ONCE ONE Ondansetron HCl 4 mg 04/19/25 21:40 Ondansetron Inj 4 Mg/2 Ml Vial IV PUSH Q4H PRN Nausea Rivastigmine 1 patch 04/20/25 09:00 04/21/25 09:26 Rivastigmine Tartrate 4.6 Mg Patch TRANSDERM 1 patch DAILY ANGELICA Administration Radiology Results: ITS Impressions Chest X-Ray 04/19/25 18:25 IMPRESSION: 1. Suspect left perihilar airspace disease. Can consider PA and lateral films with deep inspiration. Head CT 04/19/25 20:34 IMPRESSION: No acute intracranial hemorrhage or extra axial fluid collections. All CT scans at this facility are performed using low dose modulation techniques as appropriate to perform exam including the following: automated exposure control; use of iterative reconstruction technique; adjustment of the mA and/or kV according to patient size (this includes techniques or standardized protocols for targeted exams where dose is matched to indication/reason for exam). Chest/Abdomen/Pelvis CTA 04/19/25 20:37 IMPRESSION: CHEST- 1. Mildly enlarged lymph nodes left axilla. Malignancy not excluded. 2. 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 Recommend surgical consultation. 3. No PE or other acute cardiopulmonary findings. ABDOMEN/PELVIS- 1. No acute abdominopelvic findings. Modified Barium Swallow 04/20/25 11:31 IMPRESSION: Oropharyngeal dysphagia with laryngeal penetration and silent aspiration. Please correlate with speech pathologist findings and specific feeding recommendations. Labs Labs: Laboratory Results - last 24 hr 04/20/25 04/20/25 04/21/25 13:27 17:42 00:11 WBC RBC Hgb Hct MCV MCH MCHC RDW Plt Count MPV Immature Gran % (Auto) Neut % (Auto) Lymph % (Auto) [place] % (Auto) Eos % (Auto) Baso % (Auto) Lymph # (Auto) [place] # (Auto) Eos # (Auto) Baso # (Auto) Abs Immat Gran (auto) Absolute Neuts (auto) Absolute Nucleated RBC Nucleated RBC % Sodium 140 Potassium 3.2 L Chloride 108 H Carbon Dioxide 25 Anion Gap 7 BUN 18 Creatinine 1.10 Estim Creat Clear Calc 62 Estimated GFR > 60 Glucose 118 H POC Capillary Glucose 117 H 136 H Calcium 8.2 L Total Bilirubin AST ALT Alkaline Phosphatase Total Protein Albumin TSH (Reflex) 1.200 04/21/25 04:34 WBC 14.0 H RBC 3.36 L Hgb 9.2 L D Hct 30.1 L MCV 89.6 MCH 27.4 MCHC 30.6 L RDW 15.9 H Plt Count 265 MPV 10.4 Immature Gran % (Auto) 1.4 H Neut % (Auto) 84.0 H Lymph % (Auto) 5.5 L [place] % (Auto) 6.8 Eos % (Auto) 1.9 Baso % (Auto) 0.4 Lymph # (Auto) 0.77 L [place] # (Auto) 1.0 H Eos # (Auto) 0.3 Baso # (Auto) 0.1 Abs Immat Gran (auto) 0.19 H Absolute Neuts (auto) 11.7 H Absolute Nucleated RBC 0.000 Nucleated RBC % 0.0 Sodium 143 Potassium 2.5 L* Chloride 109 H Carbon Dioxide 26 Anion Gap 8 BUN 16 Creatinine 1.11 Estim Creat Clear Calc 62 Estimated GFR > 60 Glucose 121 H POC Capillary Glucose Calcium 8.2 L Total Bilirubin 0.6 AST 65 H ALT 46 Alkaline Phosphatase 99 Total Protein 5.9 L Albumin 3.0 L TSH (Reflex)
[2025-04-21] MEDS: DEXTROSE 5%/0.9% SOD CHL 1,000 ML 75 ML IV CONT (11:56)
[2025-04-21] MEDS: POTASSIUM CHLORIDE INJ 40 MEQ in SODIUM CHLORIDE 0.9% IV 500 ML 130 MEQ IVPB ×2 (11:57→18:08)
[2025-04-21 14:47] LABS: Anion Gap 4 mmol/L (4-12); Blood Urea Nitrogen 15 mg/dL (9-20); Calcium 7.9 mg/dL (8.4-10.2); Carbon Dioxide 25 mmol/L (22-30); Chloride 114 mmol/L (98-107); Estimated CRCL calculation 66 ml/min; Estimated Glomerular Filt Rate > 60; Glucose 109 mg/dL (65-110); Potassium 4.9 mmol/L (3.4-5.0); Sodium 143 mmol/L (137-145)
[2025-04-21 17:10] LABS: Potassium 3.0 mmol/L (3.4-5.0)
[2025-04-22] VITALS (22 sets, daily range): BP systolic 101–149; BP diastolic 50–74; PULSE 82–110; RESP 15–20; TEMP 36.4–36.9; O2SAT 90–100
[2025-04-22] MEDS: VANCOMYCIN 1,500 MG/NS 500 ML 1,500 MG/500 ML BAG 250 MG IVPB ×2 (01:19→21:29)
--- NOTE | 2025-04-22 01:33 | PC.NURSE ---
Daylight Savings Time For Daylight Savings Time Ending in the Fall - Clocks are moved back. For Daylight Savings Time Beginning in the Spring - Clocks are moved ahead. For [facility], the time of change occurs at 0200 hrs. Time is taken from the client server developer. This entry on the patient's chart recognizes the change in time reflected during documentation. Example: 2 entries for vital signs may be charted for 0200 hrs.
[2025-04-22 04:35] LABS: Hematocrit 30.1 % (42.0-52.0); Hemoglobin 8.8 g/dL (14.0-18.0); Mean Corpuscular HGB Conc 29.2 g/dl (32-36); Mean Corpuscular Hemoglobin 27.2 pg (26-34); Mean Corpuscular Volume 93.2 fl (80-100); Platelet Count Result 238 k/mm3 (150-375); Red Blood Count 3.23 M/mm3 (4.6-6.20); White Blood Count 7.6 K/mm3 (4.5-10.0)
[2025-04-22 05:06] LABS: Alanine Aminotransferase 67 U/L (6-50); Albumin Level 2.7 g/dL (3.5-5.1); Alkaline Phosphatase 100 U/L (38-126); Anion Gap 4 mmol/L (4-12); Aspartate Amino Transferase 119 U/L (17-59); Bilirubin,Total 0.6 mg/dL (0.2-1.3); Blood Urea Nitrogen 13 mg/dL (9-20); Calcium 8.0 mg/dL (8.4-10.2); Carbon Dioxide 25 mmol/L (22-30); Chloride 115 mmol/L (98-107); Estimated CRCL calculation 69 ml/min; Estimated Glomerular Filt Rate > 60; Glucose 108 mg/dL (65-110); Potassium 2.9 mmol/L (3.4-5.0); Sodium 144 mmol/L (137-145); Total Protein 5.6 g/dL (6.3-8.2)
[2025-04-22] MEDS: RIVASTIGMINE TARTRATE 4.6 MG PATCH 1 PATCH TRANSDERM (08:28)
[2025-04-22] MEDS: ENOXAPARIN 120 MG/0.8 ML SYRINGE 108 MG SUB-Q ×2 (10:12→21:36)
[2025-04-22] MEDS: CEFEPIME 2 GM in SODIUM CHLORIDE 0.9% IV 50 ML 100 ML IVPB ×2 (10:12→23:00)
--- NOTE | 2025-04-22 11:25 | PM.IMPN ---
Progress Note: A&P Assessment and Plan (1) New onset a-fib: Code(s): I48.91 - Unspecified atrial fibrillation Status: Acute Assessment and Plan: - new onset of AFib. -the patient was placed on amiodarone drip. -an echo has been ordered. -Cardiology consult greatly be appreciated -the patient has already been on Lovenox. -Isai Vasc score is 5. 04/21/2025 Heart rate is slightly better controlled. Will continue current treatment monitor closely 04/22/2025 Gradually improving. Heart rate is better controlled will continue current treatment. (2) Congestive heart failure: Qualifiers: Heart failure type: combined systolic and diastolic Heart failure chronicity: chronic Qualified Code(s): I50.42 - Chronic combined systolic (congestive) and diastolic (congestive) heart failure Code(s): I50.9 - Heart failure, unspecified Status: Acute Assessment and Plan: -echo has been ordered. -last echo was 05/28/2023 with an EF of 50-55%. -his Entresto has been on hold at this time as he is not awake enough to take p.o. medications. -resume spironolactone when patient is able to take p.o. well -troponin is 0.050 which could be elevated from heart failure or from the AFib RVR. Continue to monitor troponins. demand ischemia 04/21/2025 Cardiology consult noted. Plan is to continue current treatment monitor closely 04/22/2025 Decreased shortness of breath. Continue current treatment. Monitor closely. (3) HTN (hypertension): Qualifiers: Hypertension type: essential hypertension Qualified Code(s): I10 - Essential (primary) hypertension Code(s): I10 - Essential (primary) hypertension Status: Acute Assessment and Plan: -the patient is currently on amiodarone. -Entresto is on hold at this time -his current blood pressure is 103/54. (4) Mixed hyperlipidemia: Code(s): E78.2 - Mixed hyperlipidemia Status: Acute Assessment and Plan: -patient is not awake enough to take p.o. medication at this time. Resume home medication of rosuvastatin when able. (5) History of deep vein thrombosis: Code(s): Z86.718 - Personal history of other venous thrombosis and embolism Status: Acute Assessment and Plan: -weight based Lovenox for DVT and he has a history of PEs as well. He is currently in AFib as well. (6) Hodgkin's lymphoma, adult: Code(s): C81.90 - Hodgkin lymphoma, unspecified, unspecified site Status: Acute Assessment and Plan: -Hematology-Oncology consultation would greatly be appreciated. His CT scan does show slightly enlarged axillary lymph node. Malignancy not excluded. (7) Leukocytosis: Code(s): D72.829 - Elevated white blood cell count, unspecified Status: Acute Assessment and Plan: -his white count is up to 21.6. -blood cultures are pending -the patient was empirically started on cefepime and vancomycin. -hematology/oncology has been consulted as well. -daily CBCs (8) JONAH (obstructive sleep apnea): Code(s): G47.33 - Obstructive sleep apnea (adult) (pediatric) Status: Acute Assessment and Plan: -home settings for CPAP/BiPAP Subjective Date/time seen: 04/22/25 11:25 Interval history: Patient was seen during the morning rounds today. Patient is feeling slightly better Decreased shortness of breath. No chest pain. Review of Systems Review of Systems: ROS unobtainable: Yes unobtainable due to medical condition and unobtainable due to mental status Constitutional: Constitutional: Reports as per HPI Eyes: Eyes: Reports as per HPI and Reports no additional eye complaints ENT: Reports Normal hearing present Cardiovascular: Cardiovascular: Reports no additional cardiovascular complaints Respiratory: Respiratory: Reports as per HPI Gastrointestinal: Gastrointestinal: Reports as per HPI and Reports no additional gastrointestinal complaints Musculoskeletal: Musculoskeletal: Reports no additional musculoskeletal complaints Integumentary/Breasts: Skin/Breast: Reports system reviewed and no additional complaints, except as docu Neurologic: Reports system reviewed and no additional complaints, except as documented and Reports Normal hearing present Psychiatric: Psychiatric: Reports no additional psychiatric complaints and Reports as per HPI Hematologic/Lymphatic: Hematologic/Lymphatic: Reports no additional hematologic/lymphatic complaints Allergic/Immunologic: Allergic/Immunologic: Reports no additional allergic/immunologic complaints Exam Const: General: cooperative, no acute distress, well developed, awake, Physically active, average body habitus and well nourished Nutritional Appearance: average body habitus and well nourished Orientation/consciousness: oriented to person HENMT: Head: normal to inspection, No palpable skull fracture present and normocephalic Eyes: General: appearance normal, both eyes and all related structures Alignment and Position: alignment normal Periorbital: periorbital findings normal Eyelids: eyelids normal Conjunctivae: conjunctivae normal Sclera: sclerae normal Cornea: corneas normal Pupils: Equal, round and reactive pupils present and Pupil accommodation reflex normal EOM: EOMs intact bilaterally Neck: Neck: normal visual inspection Chest: Chest palpation & inspection: normal inspection of the chest Resp: Effort & Inspection: normal respiratory effort Auscultation: clear to auscultation bilaterally Cardio: Palpation: normal PMI Rate: regular rate Rhythm: regular rhythm Heart sounds: S1 normal heart sound present and S2 normal heart sound present Peripheral pulses: Peripheral pulses 2+ throughout GI: Inspection: normal to inspection Auscultation: normal bowel sounds Rectal Exam: deferred Back/Spine/Pelvis: Thoracic/Lumbar Spine: thoracic and lumbar spine normal to inspection Skin: General skin exam: normal color Lesions: no lesions Rashes: no rashes Trauma: no lacerations or abrasions Wounds: no wounds Hair: normal Nails: normal Neuro: General: oriented to person Cranial nerves: Yes Equal, round and reactive pupils present and Yes Normal hearing present Extrem: General: normal to inspection Right upper extremity: normal to inspection and shoulder/upper arm Left upper extremity: normal to inspection and shoulder/upper arm Right lower extremity: normal to inspection Left lower extremity: normal to inspection Psych: Appearance: grossly normal Mental Status: mental status grossly normal Objective Data Vital Signs Vital Signs: Vital Signs - 24 hr 04/21/25 14:00 04/21/25 14:00 04/21/25 14:50 Temperature 36.4 C Pulse Rate 89 89 89 Respiratory Rate 24 H Blood Pressure 100/58 L 100/58 L Pulse Oximetry 99 Oxygen Delivery Oxygen Flow Rate Fraction of Inspired Oxygen 04/21/25 16:00 04/21/25 16:00 04/21/25 16:00 Temperature 36.7 C Pulse Rate 95 96 Respiratory Rate 22 H Blood Pressure 111/70 Pulse Oximetry 100 100 Oxygen Delivery Nasal Cannula Oxygen Flow Rate 3 Fraction of Inspired Oxygen 04/21/25 16:16 04/21/25 16:34 04/21/25 18:00 Temperature Pulse Rate 92 92 97 Respiratory Rate Blood Pressure 111/70 111/70 121/68 Pulse Oximetry 98 Oxygen Delivery Oxygen Flow Rate Fraction of Inspired Oxygen 04/21/25 18:00 04/21/25 18:00 04/21/25 20:00 Temperature 37.0 C Pulse Rate 97 97 90 Respiratory Rate 18 Blood Pressure 121/68 112/62 Pulse Oximetry 98 Oxygen Delivery Oxygen Flow Rate Fraction of Inspired Oxygen 04/21/25 20:00 04/21/25 20:00 04/21/25 20:00 Temperature Pulse Rate 90 90 90 Respiratory Rate 16 Blood Pressure 112/62 Pulse Oximetry 97 Oxygen Delivery Room Air Oxygen Flow Rate Fraction of Inspired Oxygen 21 04/21/25 20:23 04/21/25 22:00 04/21/25 22:00 Temperature 36.7 C Pulse Rate 95 95 Respiratory Rate 16 Blood Pressure 134/90 Pulse Oximetry 96 97 Oxygen Delivery Room Air Oxygen Flow Rate Fraction of Inspired Oxygen 21 04/21/25 22:00 04/22/25 00:00 04/22/25 00:00 Temperature Pulse Rate 95 103 H 103 H Respiratory Rate 15 Blood Pressure 134/90 Pulse Oximetry 98 Oxygen Delivery Room Air Oxygen Flow Rate Fraction of Inspired Oxygen 21 04/22/25 00:00 04/22/25 00:03 04/22/25 02:00 Temperature 36.8 C Pulse Rate 101 H 101 H 102 H Respiratory Rate 15 Blood Pressure 128/72 128/72 Pulse Oximetry 98 Oxygen Delivery Oxygen Flow Rate Fraction of Inspired Oxygen 04/22/25 02:00 04/22/25 02:00 04/22/25 04:00 Temperature Pulse Rate 102 H 102 H 95 Respiratory Rate 20 20 Blood Pressure 124/72 122/72 Pulse Oximetry 98 98 Oxygen Delivery Room Air Oxygen Flow Rate Fraction of Inspired Oxygen 21 04/22/25 04:00 04/22/25 04:00 04/22/25 04:00 Temperature Pulse Rate 95 95 95 Respiratory Rate Blood Pressure 130/71 130/71 Pulse Oximetry Oxygen Delivery Oxygen Flow Rate Fraction of Inspired Oxygen 04/22/25 04:25 04/22/25 05:51 04/22/25 05:51 Temperature 36.9 C Pulse Rate 100 110 H 110 H Respiratory Rate 20 20 Blood Pressure 130/71 120/74 Pulse Oximetry 97 98 Oxygen Delivery Oxygen Flow Rate Fraction of Inspired Oxygen 04/22/25 05:52 04/22/25 07:59 04/22/25 08:00 Temperature 36.6 C Pulse Rate 110 H 102 H 102 H Respiratory Rate 20 Blood Pressure 120/74 113/59 L 113/59 L Pulse Oximetry 100 Oxygen Delivery Oxygen Flow Rate Fraction of Inspired Oxygen 04/22/25 08:00 04/22/25 08:00 04/22/25 10:00 Temperature Pulse Rate 110 H 85 Respiratory Rate Blood Pressure 114/50 L Pulse Oximetry Oxygen Delivery Room Air Oxygen Flow Rate Fraction of Inspired Oxygen 04/22/25 10:00 04/22/25 10:00 Temperature Pulse Rate 85 Respiratory Rate Blood Pressure 114/50 L Pulse Oximetry Oxygen Delivery Oxygen Flow Rate Fraction of Inspired Oxygen Intake/Output Intake/Output: Intake & Output 04/19/25 04/20/25 04/21/25 04/22/25 23:59 23:59 23:59 22:59 Intake Total 1500 947.6 3234.6 729.5 Output Total 1100 1200 750 Balance 1500 -152.4 2034.6 -20.5 Meds/Results Medications: Active Medications Generic Name Dose Route Start Last Admin Trade Name Freq PRN Reason Stop Dose Admin Acetaminophen 650 mg 04/19/25 21:40 Acetaminophen 325 Mg Tablet PO Q4H PRN Mild Pain (1-3) or Fever Enoxaparin Sodium 108 mg 04/20/25 10:00 04/22/25 10:12 Enoxaparin 120 Mg/0.8 Ml Syringe SUB-Q 108 mg Q12H ANGELICA Administration Amiodarone HCl/Dextrose 360 mg in 200 mls @ 16.667 mls/hr 04/20/25 04:44 04/22/25 10:00 Nexterone 360 Mg/D5w 200 Ml IV CONT 0.5 mg/min .Q12H ANGELICA 16.67 mls/hr 0.5 MG/MIN Infusion Cefepime HCl 2 gm/ Sodium 50 mls @ 100 mls/hr 04/20/25 10:00 04/22/25 10:12 Chloride IVPB 100 mls/hr Q12H ANGELICA Administration Dextrose/Sodium Chloride 1,000 mls @ 75 mls/hr 04/20/25 15:50 04/21/25 11:56 Dextrose 5% Sodium Chloride 0.9% IV CONT 75 mls/hr .[id number] ANGELICA Administration Vancomycin HCl 1,500 mg in 500 mls @ 250 mls/hr 04/22/25 02:00 04/22/25 03:20 Vancomycin 1,500 Mg/Ns 500 Ml IVPB Infused Q18H ANGELICA Infusion Potassium Chloride 40 meq/ 520 mls @ 130 mls/hr 04/22/25 11:45 Sodium Chloride IVPB 04/22/25 15:44 ONCE ONE Potassium Chloride 40 meq/ 520 mls @ 130 mls/hr 04/22/25 17:00 Sodium Chloride IVPB 04/22/25 20:59 ONCE ONE Ondansetron HCl 4 mg 04/19/25 21:40 Ondansetron Inj 4 Mg/2 Ml Vial IV PUSH Q4H PRN Nausea Rivastigmine 1 patch 04/20/25 09:00 04/22/25 08:28 Rivastigmine Tartrate 4.6 Mg Patch TRANSDERM 1 patch DAILY ANGELICA Administration Radiology Results: ITS Impressions Chest X-Ray 04/19/25 18:25 IMPRESSION: 1. Suspect left perihilar airspace disease. Can consider PA and lateral films with deep inspiration. Head CT 04/19/25 20:34 IMPRESSION: No acute intracranial hemorrhage or extra axial fluid collections. All CT scans at this facility are performed using low dose modulation techniques as appropriate to perform exam including the following: automated exposure control; use of iterative reconstruction technique; adjustment of the mA and/or kV according to patient size (this includes techniques or standardized protocols for targeted exams where dose is matched to indication/reason for exam). Chest/Abdomen/Pelvis CTA 04/19/25 20:37 IMPRESSION: CHEST- 1. Mildly enlarged lymph nodes left axilla. Malignancy not excluded. 2. 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 Recommend surgical consultation. 3. No PE or other acute cardiopulmonary findings. ABDOMEN/PELVIS- 1. No acute abdominopelvic findings. Modified Barium Swallow 04/20/25 11:31 IMPRESSION: Oropharyngeal dysphagia with laryngeal penetration and silent aspiration. Please correlate with speech pathologist findings and specific feeding recommendations. Labs Labs: Laboratory Results - last 24 hr 04/21/25 04/21/25 04/21/25 14:32 16:56 16:59 WBC RBC Hgb Hct MCV MCH MCHC RDW Plt Count MPV Sodium 143 Potassium 4.9 3.0 L Chloride 114 H Carbon Dioxide 25 Anion Gap 4 BUN 15 Creatinine 1.03 Estim Creat Clear Calc 66 Estimated GFR > 60 Glucose 109 POC Capillary Glucose 119 H Calcium 7.9 L Total Bilirubin AST ALT Alkaline Phosphatase Total Protein Albumin Vancomycin Trough 04/21/25 04/22/25 04/22/25 23:09 00:25 04:30 WBC 7.6 RBC 3.23 L Hgb 8.8 L Hct 30.1 L MCV 93.2 MCH 27.2 MCHC 29.2 L RDW 15.8 H Plt Count 238 MPV 9.7 Sodium 144 Potassium 2.9 L Chloride 115 H Carbon Dioxide 25 Anion Gap 4 BUN 13 Creatinine 0.99 Estim Creat Clear Calc 69 Estimated GFR > 60 Glucose 108 POC Capillary Glucose 122 H Calcium 8.0 L Total Bilirubin 0.6 AST 119 H ALT 67 H Alkaline Phosphatase 100 Total Protein 5.6 L Albumin 2.7 L Vancomycin Trough 12.4 Quality VTE Prophylaxis VTE prophylaxis: pharmacologic ordered
[2025-04-22] MEDS: POTASSIUM CHLORIDE INJ 40 MEQ in SODIUM CHLORIDE 0.9% IV 500 ML 130 MEQ IVPB ×2 (12:25→17:09)
--- NOTE | 2025-04-22 13:13 | PM.PNCARD ---
Progress Note: A&P Assessment and Plan (1) New onset a-fib: Code(s): I48.91 - Unspecified atrial fibrillation Status: Acute Plan Persistent atrial fibrillation History of cardiomyopathy currently compensated History of thoracic aortic aneurysm Subsegmental pulmonary embolism Patient failed swallow test Plan Continue Lovenox for anticoagulation 1 milligram/kg subQ b.i.d. Amiodarone infusion-0.5 mg per minute Subjective Date/time seen: 04/22/25 13:13 Interval history: Patient is here for atrial fibrillation No acute events Telemetry atrial fibrillation rate is 100-110 Review of Systems Review of Systems: All systems reviewed & are unremarkable except as noted in HPI and below Exam Const: Other: lethargic Neck: Neck: supple and No no JVD Resp: Auscultation: diminished lung sounds Cardio: Rate: tachycardic Rhythm: abnormal rhythm Heart sounds: no gallops, no murmurs and no rubs Other: irreg irreg Extrem: General: edema right Objective Data Vital Signs Vital Signs: Vital Signs - 24 hr 04/21/25 14:50 04/21/25 16:00 04/21/25 16:00 Temperature 36.4 C 36.7 C Pulse Rate 89 95 Respiratory Rate 24 H 22 H Blood Pressure 100/58 L 111/70 Pulse Oximetry 99 100 100 Oxygen Delivery Nasal Cannula Oxygen Flow Rate 3 Fraction of Inspired Oxygen 04/21/25 16:00 04/21/25 16:16 04/21/25 16:34 Temperature Pulse Rate 96 92 92 Respiratory Rate Blood Pressure 111/70 111/70 Pulse Oximetry Oxygen Delivery Oxygen Flow Rate Fraction of Inspired Oxygen 04/21/25 18:00 04/21/25 18:00 04/21/25 18:00 Temperature Pulse Rate 97 97 97 Respiratory Rate Blood Pressure 121/68 121/68 Pulse Oximetry 98 Oxygen Delivery Oxygen Flow Rate Fraction of Inspired Oxygen 04/21/25 20:00 04/21/25 20:00 04/21/25 20:00 Temperature 37.0 C Pulse Rate 90 90 90 Respiratory Rate 18 16 Blood Pressure 112/62 Pulse Oximetry 98 97 Oxygen Delivery Room Air Oxygen Flow Rate Fraction of Inspired Oxygen 21 04/21/25 20:00 04/21/25 20:23 04/21/25 22:00 Temperature 36.7 C Pulse Rate 90 95 Respiratory Rate 16 Blood Pressure 112/62 134/90 Pulse Oximetry 96 97 Oxygen Delivery Room Air Oxygen Flow Rate Fraction of Inspired Oxygen 21 04/21/25 22:00 04/21/25 22:00 04/22/25 00:00 Temperature Pulse Rate 95 95 103 H Respiratory Rate 15 Blood Pressure 134/90 Pulse Oximetry 98 Oxygen Delivery Room Air Oxygen Flow Rate Fraction of Inspired Oxygen 21 04/22/25 00:00 04/22/25 00:00 04/22/25 00:03 Temperature 36.8 C Pulse Rate 103 H 101 H 101 H Respiratory Rate 15 Blood Pressure 128/72 128/72 Pulse Oximetry 98 Oxygen Delivery Oxygen Flow Rate Fraction of Inspired Oxygen 04/22/25 02:00 04/22/25 02:00 04/22/25 02:00 Temperature Pulse Rate 102 H 102 H 102 H Respiratory Rate 20 Blood Pressure 124/72 122/72 Pulse Oximetry 98 Oxygen Delivery Oxygen Flow Rate Fraction of Inspired Oxygen 04/22/25 04:00 04/22/25 04:00 04/22/25 04:00 Temperature Pulse Rate 95 95 95 Respiratory Rate 20 Blood Pressure 130/71 Pulse Oximetry 98 Oxygen Delivery Room Air Oxygen Flow Rate Fraction of Inspired Oxygen 21 04/22/25 04:00 04/22/25 04:25 04/22/25 05:51 Temperature 36.9 C Pulse Rate 95 100 110 H Respiratory Rate 20 Blood Pressure 130/71 130/71 Pulse Oximetry 97 Oxygen Delivery Oxygen Flow Rate Fraction of Inspired Oxygen 04/22/25 05:51 04/22/25 05:52 04/22/25 07:59 Temperature 36.6 C Pulse Rate 110 H 110 H 102 H Respiratory Rate 20 20 Blood Pressure 120/74 120/74 113/59 L Pulse Oximetry 98 100 Oxygen Delivery Oxygen Flow Rate Fraction of Inspired Oxygen 04/22/25 08:00 04/22/25 08:00 04/22/25 08:00 Temperature Pulse Rate 102 H 110 H Respiratory Rate Blood Pressure 113/59 L Pulse Oximetry Oxygen Delivery Room Air Oxygen Flow Rate Fraction of Inspired Oxygen 04/22/25 10:00 04/22/25 10:00 04/22/25 10:00 Temperature Pulse Rate 85 85 Respiratory Rate Blood Pressure 114/50 L 114/50 L Pulse Oximetry Oxygen Delivery Oxygen Flow Rate Fraction of Inspired Oxygen 04/22/25 12:00 04/22/25 12:00 04/22/25 12:00 Temperature 36.5 C Pulse Rate 90 90 89 Respiratory Rate 20 Blood Pressure 109/60 109/60 Pulse Oximetry 97 Oxygen Delivery Oxygen Flow Rate Fraction of Inspired Oxygen 04/22/25 12:00 Temperature Pulse Rate Respiratory Rate Blood Pressure Pulse Oximetry Oxygen Delivery Room Air Oxygen Flow Rate Fraction of Inspired Oxygen Intake/Output Intake/Output: Intake & Output 04/19/25 04/20/25 04/21/25 04/22/25 23:59 23:59 23:59 22:59 Intake Total 1500 947.6 3234.6 812.8 Output Total 1100 1200 750 Balance 1500 -152.4 2034.6 62.8 Meds/Results Medications: Active Medications Generic Name Dose Route Start Last Admin Trade Name Freq PRN Reason Stop Dose Admin Acetaminophen 650 mg 04/19/25 21:40 Acetaminophen 325 Mg Tablet PO Q4H PRN Mild Pain (1-3) or Fever Enoxaparin Sodium 108 mg 04/20/25 10:00 04/22/25 10:12 Enoxaparin 120 Mg/0.8 Ml Syringe SUB-Q 108 mg Q12H ANGELICA Administration Amiodarone HCl/Dextrose 360 mg in 200 mls @ 16.667 mls/hr 04/20/25 04:44 04/22/25 12:00 Nexterone 360 Mg/D5w 200 Ml IV CONT 0.5 mg/min .Q12H ANGELICA 16.67 mls/hr 0.5 MG/MIN Infusion Cefepime HCl 2 gm/ Sodium 50 mls @ 100 mls/hr 04/20/25 10:00 04/22/25 10:45 Chloride IVPB Infused Q12H ANGELICA Infusion Dextrose/Sodium Chloride 1,000 mls @ 75 mls/hr 04/20/25 15:50 04/21/25 11:56 Dextrose 5% Sodium Chloride 0.9% IV CONT 75 mls/hr .[id number] ANGELICA Administration Vancomycin HCl 1,500 mg in 500 mls @ 250 mls/hr 04/22/25 02:00 04/22/25 03:20 Vancomycin 1,500 Mg/Ns 500 Ml IVPB Infused Q18H ANGELICA Infusion Potassium Chloride 40 meq/ 520 mls @ 130 mls/hr 04/22/25 11:45 04/22/25 12:25 Sodium Chloride IVPB 04/22/25 15:44 130 mls/hr ONCE ONE Administration Potassium Chloride 40 meq/ 520 mls @ 130 mls/hr 04/22/25 17:00 Sodium Chloride IVPB 04/22/25 20:59 ONCE ONE Ondansetron HCl 4 mg 04/19/25 21:40 Ondansetron Inj 4 Mg/2 Ml Vial IV PUSH Q4H PRN Nausea Rivastigmine 1 patch 04/20/25 09:00 04/22/25 08:28 Rivastigmine Tartrate 4.6 Mg Patch TRANSDERM 1 patch DAILY ANGELICA Administration Radiology Results: ITS Impressions Chest X-Ray 04/19/25 18:25 IMPRESSION: 1. Suspect left perihilar airspace disease. Can consider PA and lateral films with deep inspiration. Head CT 04/19/25 20:34 IMPRESSION: No acute intracranial hemorrhage or extra axial fluid collections. All CT scans at this facility are performed using low dose modulation techniques as appropriate to perform exam including the following: automated exposure control; use of iterative reconstruction technique; adjustment of the mA and/or kV according to patient size (this includes techniques or standardized protocols for targeted exams where dose is matched to indication/reason for exam). Chest/Abdomen/Pelvis CTA 04/19/25 20:37 IMPRESSION: CHEST- 1. Mildly enlarged lymph nodes left axilla. Malignancy not excluded. 2. 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 Recommend surgical consultation. 3. No PE or other acute cardiopulmonary findings. ABDOMEN/PELVIS- 1. No acute abdominopelvic findings. Modified Barium Swallow 04/20/25 11:31 IMPRESSION: Oropharyngeal dysphagia with laryngeal penetration and silent aspiration. Please correlate with speech pathologist findings and specific feeding recommendations. Labs Labs: Laboratory Results - last 24 hr 04/21/25 04/21/25 04/21/25 14:32 16:56 16:59 WBC RBC Hgb Hct MCV MCH MCHC RDW Plt Count MPV Sodium 143 Potassium 4.9 3.0 L Chloride 114 H Carbon Dioxide 25 Anion Gap 4 BUN 15 Creatinine 1.03 Estim Creat Clear Calc 66 Estimated GFR > 60 Glucose 109 POC Capillary Glucose 119 H Calcium 7.9 L Total Bilirubin AST ALT Alkaline Phosphatase Total Protein Albumin Vancomycin Trough 04/21/25 04/22/25 04/22/25 23:09 00:25 04:30 WBC 7.6 RBC 3.23 L Hgb 8.8 L Hct 30.1 L MCV 93.2 MCH 27.2 MCHC 29.2 L RDW 15.8 H Plt Count 238 MPV 9.7 Sodium 144 Potassium 2.9 L Chloride 115 H Carbon Dioxide 25 Anion Gap 4 BUN 13 Creatinine 0.99 Estim Creat Clear Calc 69 Estimated GFR > 60 Glucose 108 POC Capillary Glucose 122 H Calcium 8.0 L Total Bilirubin 0.6 AST 119 H ALT 67 H Alkaline Phosphatase 100 Total Protein 5.6 L Albumin 2.7 L Vancomycin Trough 12.4 04/22/25 11:28 WBC RBC Hgb Hct MCV MCH MCHC RDW Plt Count MPV Sodium Potassium Chloride Carbon Dioxide Anion Gap BUN Creatinine Estim Creat Clear Calc Estimated GFR Glucose POC Capillary Glucose 117 H Calcium Total Bilirubin AST ALT Alkaline Phosphatase Total Protein Albumin Vancomycin Trough
[2025-04-22] MEDS: DEXTROSE 5%/0.9% SOD CHL 1,000 ML 75 ML IV CONT (13:42)
[2025-04-23] VITALS (18 sets, daily range): BP systolic 107–144; BP diastolic 55–88; PULSE 72–100; RESP 14–22; TEMP 36.6–37.2; O2SAT 94–100
[2025-04-23] MEDS: DEXTROSE 5%/0.9% SOD CHL 1,000 ML 75 ML IV CONT ×3 (02:21→12:08)
[2025-04-23 04:48] LABS: Alanine Aminotransferase 68 U/L (6-50); Albumin Level 2.5 g/dL (3.5-5.1); Alkaline Phosphatase 87 U/L (38-126); Anion Gap 4 mmol/L (4-12); Aspartate Amino Transferase 97 U/L (17-59); Bilirubin,Total 0.5 mg/dL (0.2-1.3); Blood Urea Nitrogen 9 mg/dL (9-20); Calcium 7.7 mg/dL (8.4-10.2); Carbon Dioxide 24 mmol/L (22-30); Chloride 117 mmol/L (98-107); Estimated CRCL calculation 70 ml/min; Estimated Glomerular Filt Rate > 60; Glucose 125 mg/dL (65-110); Magnesium 1.6 mg/dL (1.6-2.3); Potassium 2.7 mmol/L (3.4-5.0); Sodium 145 mmol/L (137-145); Total Protein 5.3 g/dL (6.3-8.2)
[2025-04-23] MEDS: MAGNESIUM SULF 2 GM/WATER 50ML 2 GM/50 ML BAG IVPB (06:01)
[2025-04-23] MEDS: POTASSIUM CHLORIDE INJ 40 MEQ in SODIUM CHLORIDE 0.9% IV 500 ML 130 MEQ IVPB ×2 (07:10→16:41)
[2025-04-23] MEDS: ENOXAPARIN 120 MG/0.8 ML SYRINGE 115 MG SUB-Q ×2 (09:19→20:51)
[2025-04-23] MEDS: RIVASTIGMINE TARTRATE 4.6 MG PATCH 1 PATCH TRANSDERM (09:21)
--- NOTE | 2025-04-23 10:59 | ECG_ITS ---
Test Date: 2025-04-23 11:12:02 Measurements Intervals [place] Rate: 84 P: 0 WI: 0 QRS: -31 QRSD: 110 T: 3 QT: 412 QTc: 488 Interpretive Statements ATRIAL FIBRILLATION WITH ABERRANT CONDUCTION OR VENTRICULAR PREMATURE COMPLEXES MARKED LEFT AXIS DEVIATION [QRS AXIS < -30] LOW QRS VOLTAGE IN PRECORDIAL LEADS [QRS DEFLECTION < 1.0 mV IN CHEST LEADS] Compared to ECG 04/19/2025 17:40:21 Ventricular premature complex(es) now present Aberrant conduction of supraventricular beat(s) now present Left-axis deviation now present Low QRS voltage now present Left ventricular hypertrophy no longer present Myocardial infarct finding no longer present Electronically Signed On 04-23-2025 11:25:23 CERTIFIED [employer]OVELL ENGINEER by Ez Lu M.D.
[2025-04-23] MEDS: CEFEPIME 2 GM in SODIUM CHLORIDE 0.9% IV 50 ML 100 ML IVPB (11:16)
--- NOTE | 2025-04-23 12:09 | PCSTNOTE ---
Please refer to the Modified Barium Swallow Evaluation in the EMR.
--- NOTE | 2025-04-23 12:20 | PCNFU ---
Nutrition Follow-Up Complete: Increased nutrient needs related to altered skin integrity as evidenced by multiple pressure injuries Swallowing difficulties related to dysphagia as evidenced by need for MBS and further speech evaluation Goal:Diet order - Pt slowly progressing to goal new goal: PO Intake 75% once diet is initiated Pt current nutrition is NPO - to advance to a soft and bite sized level 6, level 3 moderately thick liquids. Nutrition recommendation: Add Ensure BID for an additional 350kcals, 20g protein per shake, Add [place] BID for wound healing Last recorded weight is 115.5 kg. Bowel Motility: +BM 04/22 Labs Reviewed: Hgb:8.8, HCT:32.1, Alb:2.5, K:2.7 Meds Noted: lovenox Skin: Stage II to buttocks, DTPI to buttocks/sacrum Additional Notes: Pt has been NPO all through the weekend. MBS today with recommendations for a soft and bite sized level 6 diet consistency with level 3 moderately thick liquids. Recommend to add Ensure for supplement and [place] for wound healing. Monitor MBS results, recommendations, diet orders, wt, labs, skin. Follow up in 3 days.
[2025-04-23 14:20] LABS: Magnesium 1.9 mg/dL (1.6-2.3); Potassium 3.1 mmol/L (3.4-5.0)
--- NOTE | 2025-04-23 14:39 | PM.PNCARD ---
Progress Note: A&P Assessment and Plan (1) New onset a-fib: Code(s): I48.91 - Unspecified atrial fibrillation Status: Acute (2) Elevated troponin I level: Code(s): R79.89 - Other specified abnormal findings of blood chemistry Status: Acute (3) Cardiomyopathy: Code(s): I42.9 - Cardiomyopathy, unspecified Status: Acute (4) Thoracic aortic aneurysm without rupture: Qualifiers: Thoracic aorta location: ascending aorta Qualified Code(s): I71.21 - Aneurysm of the ascending aorta, without rupture Code(s): I71.2 - Thoracic aortic aneurysm, without rupture Status: Acute (5) Hodgkin's lymphoma, adult: Code(s): C81.90 - Hodgkin lymphoma, unspecified, unspecified site Status: Acute (6) Sepsis: Code(s): A41.9 - Sepsis, unspecified organism Status: Acute (7) AMS (altered mental status): Code(s): R41.82 - Altered mental status, unspecified Status: Acute (8) Deep vein thrombosis (DVT) of right lower extremity: Qualifiers: Affected thrombotic vein of extremity: popliteal Chronicity: acute Qualified Code(s): I82.431 - Acute embolism and thrombosis of right popliteal vein Code(s): I82.401 - Acute embolism and thrombosis of unspecified deep veins of right lower extremity Status: Acute (9) Obesity: Qualifiers: Obesity type: due to excess calories Obesity classification: adult class 2 (BMI 35 - 39.9) Serious obesity comorbidity presence: with serious comorbidity Body mass index: BMI 39.0-39.9 Qualified Code(s): E66.01 - Morbid (severe) obesity due to excess calories; Z68.39 - Body mass index [BMI] 39.0-39.9, adult Code(s): E66.9 - Obesity, unspecified Status: Acute Plan Impression: 1. Paroxysmal atrial fibrillation with rapid ventricular response. Currently significant improvement of the heart rate at 80 per minute on IV Cardizem. Monitor shows atrial fibrillation. 2. Recent diagnosis of DVT involving her right leg. Right cough is tender and is swollen 3. CT scan of the chest positive for stable ascending aorta aneurysm measuring at 5.8 cm. 4. Large hematoma of the posterior compartment of the right leg without active contrast extravasation. Bilateral Roman cyst noted. 5. Morbid obesity. Patient weighs 115.5 kg. 6. Acute mental status changes with garbled speech. Significantly improved. CT scan of the head is negative for any acute intracranial process. 7. Severe hypokalemia admission at 2.7 now improved to 3.1. 8. Elevated proBNP at 3820. Troponin I was 0.05 and remained stable without suggestion for acute coronary syndrome. Recommendations: #. Surgical consult for right leg hematoma and possible need for evacuation. Patient has severe pain in the right leg. #. Currently on IV amiodarone. Finish loading does of total of 360 mg or 24 hours and then start patient on oral amiodarone 400 mg b.i.d.. Monitor shows improved heart rate. #. Currently blood pressure 129/87 and heart rate is 93 per minute. Echocardiogram shows technically difficult echo with preserved systolic function at 60-65% and atrial fibrillation. #. Current medications reviewed. Currently on IV amiodarone drip, full-dose Lovenox, add p.o. Cardizem 30 mg q.i.d. for rate control. #. A repeat on follow-up ultrasound of the right leg is recommended. Previous venous Doppler done on 03/19/2025. Subjective Date/time seen: 04/23/25 14:39 Interval history: Review of HPI: 74-year-old gentleman admitted on 04/20/2025 with atrial fibrillation and rapid ventricular response at the her her in 35 per minute. Patient has significant cardiac problems including thoracic aortic aneurysm measuring 5.8 cm, history of pulmonary embolism/DVT on therapeutic Lovenox. Patient was recently diagnosed with DVT on the right leg and subsequently discharged on subQ Lovenox. Patient was subsequently treated at [facility] a right leg DVT and suspicion for compartment syndrome. The surgery was done and patient discharged on anticoagulation. Patient also has history of congestive heart failure and obstructive sleep apnea. Patient apparently had mental status changes and weakness for which she was transferred back to the hospital emergency room. Patient was lethargic with garbled speech from [facility]. Initial workup in the emergency room reveal low blood pressure 92/60 artery was 136 per minute patient was afebrile with 98% saturation. Patient was more awake alert in the emergency room but continued to have mildly garbled speech. Admitting laboratory data creatinine 1.36, BNP was 3820. Urine had 3+ protein urea and potassium was 3.0. Patient was subsequently started on amiodarone drip to help with the heart rate. CT scan of the head was negative for any acute changes. 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 Subjective: Patient examined at the bedside. Patient is awake alert and more stable with improved speech. Monitor shows atrial fibrillation with heart 83 per minute. Using oxygen by nasal cannula Review of Systems Review of Systems: 12 point review of system was completed. Pertinent positive and negative findings per HPI. Exam Narrative: Patient examined bedside. Patient morbidly obese in with 115.5 kg with BMI of 37.6.. Head and neck examination is unremarkable. Sclerae is nonicteric. ENT examination is negative. Neck is supple. There is no JVD or carotid bruit. Thyroid is not enlarged. Lungs are decreased air entry bilaterally. There is no wheezing or crepitation. Heart sounds reveal normal S1-S2. No specific murmurs S3 appreciated Abdomen is obese without hepatosplenomegaly. Bowel sounds present. Extremities are IV moderate to edema of the right leg ache tender on palpation. Left leg is no leg edema. Neurological examination is intact Objective Data Vital Signs Vital Signs: Vital Signs - 24 hr 04/22/25 15:52 04/22/25 16:00 04/22/25 16:00 Temperature 36.4 C Pulse Rate 83 87 Respiratory Rate 19 Blood Pressure 101/63 Pulse Oximetry 99 Oxygen Delivery Room Air Fraction of Inspired Oxygen 04/22/25 16:00 04/22/25 16:01 04/22/25 17:05 Temperature Pulse Rate 87 90 90 Respiratory Rate Blood Pressure 101/63 101/63 101/63 Pulse Oximetry Oxygen Delivery Fraction of Inspired Oxygen 04/22/25 18:00 04/22/25 18:00 04/22/25 19:48 Temperature 36.6 C Pulse Rate 91 83 Respiratory Rate 16 Blood Pressure 113/51 L 149/59 H Pulse Oximetry 96 Oxygen Delivery Fraction of Inspired Oxygen 04/22/25 20:00 04/22/25 20:00 04/22/25 20:30 Temperature Pulse Rate 90 84 82 Respiratory Rate 20 Blood Pressure 149/59 H Pulse Oximetry 90 Oxygen Delivery Room Air Fraction of Inspired Oxygen 21 04/22/25 22:00 04/22/25 22:00 04/22/25 22:25 Temperature Pulse Rate 88 82 87 Respiratory Rate 16 Blood Pressure 107/52 L 107/52 L Pulse Oximetry 97 Oxygen Delivery Fraction of Inspired Oxygen 04/23/25 00:00 04/23/25 00:00 04/23/25 00:00 Temperature 36.8 C Pulse Rate 93 83 Respiratory Rate 18 Blood Pressure 110/61 110/61 Pulse Oximetry 100 Oxygen Delivery Room Air Fraction of Inspired Oxygen 04/23/25 00:00 04/23/25 01:46 04/23/25 02:00 Temperature Pulse Rate 81 100 76 Respiratory Rate 18 Blood Pressure 107/57 L Pulse Oximetry 97 Oxygen Delivery Fraction of Inspired Oxygen 04/23/25 02:00 04/23/25 03:39 04/23/25 03:59 Temperature 37.2 C Pulse Rate 88 87 Respiratory Rate 14 Blood Pressure 107/57 L 119/59 L Pulse Oximetry 98 Oxygen Delivery Room Air Fraction of Inspired Oxygen 04/23/25 04:00 04/23/25 04:10 04/23/25 04:10 Temperature Pulse Rate 81 88 88 Respiratory Rate Blood Pressure 119/59 L 119/59 L Pulse Oximetry Oxygen Delivery Fraction of Inspired Oxygen 04/23/25 05:51 04/23/25 06:00 04/23/25 07:00 Temperature Pulse Rate 88 89 86 Respiratory Rate Blood Pressure 110/55 L Pulse Oximetry Oxygen Delivery Fraction of Inspired Oxygen 04/23/25 08:00 04/23/25 08:00 04/23/25 08:00 Temperature 36.6 C Pulse Rate 75 97 75 Respiratory Rate 22 H Blood Pressure 113/79 113/79 Pulse Oximetry 98 Oxygen Delivery Fraction of Inspired Oxygen 04/23/25 10:00 04/23/25 10:00 04/23/25 10:00 Temperature Pulse Rate 92 82 Respiratory Rate Blood Pressure 124/66 124/66 Pulse Oximetry Oxygen Delivery Fraction of Inspired Oxygen 04/23/25 12:00 04/23/25 12:00 04/23/25 14:00 Temperature 36.6 C Pulse Rate 93 82 91 Respiratory Rate 22 H Blood Pressure 130/75 129/87 Pulse Oximetry 95 Oxygen Delivery Fraction of Inspired Oxygen Intake/Output Intake/Output: Intake & Output 04/20/25 04/21/25 04/22/25 04/23/25 23:59 23:59 22:59 23:59 Intake Total 947.6 3234.6 3031.4 1442.8 Output Total 1100 1200 1100 1050 Balance -152.4 2034.6 1931.4 392.8 Meds/Results Medications: Active Medications Generic Name Dose Route Start Last Admin Trade Name Freq PRN Reason Stop Dose Admin Acetaminophen 650 mg 04/19/25 21:40 Acetaminophen 325 Mg Tablet PO Q4H PRN Mild Pain (1-3) or Fever Amoxicillin/Clavulanate Potassium 1 tablet 04/23/25 21:00 Amoxicillin/Clavulanate K 875-125 Mg Tab PO 04/26/25 21:01 Q12HR ANGELICA Doxycycline Hyclate 100 mg 04/23/25 21:00 Doxycycline Hyclate 100 Mg Tablet PO 04/26/25 21:01 Q12HR ANGELICA Enoxaparin Sodium 115 mg 04/23/25 09:00 04/23/25 09:19 Enoxaparin 120 Mg/0.8 Ml Syringe SUB-Q 115 mg Q12H ANGELICA Administration Amiodarone HCl/Dextrose 360 mg in 200 mls @ 16.667 mls/hr 04/20/25 04:44 04/23/25 10:00 Nexterone 360 Mg/D5w 200 Ml IV CONT 0.5 mg/min .Q12H ANGELICA 16.67 mls/hr 0.5 MG/MIN Infusion Dextrose/Sodium Chloride 1,000 mls @ 75 mls/hr 04/20/25 15:50 04/23/25 12:08 Dextrose 5% Sodium Chloride 0.9% IV CONT 75 mls/hr .[id number] ANGELICA Administration Ondansetron HCl 4 mg 04/19/25 21:40 Ondansetron Inj 4 Mg/2 Ml Vial IV PUSH Q4H PRN Nausea Rivastigmine 1 patch 04/20/25 09:00 04/23/25 09:21 Rivastigmine Tartrate 4.6 Mg Patch TRANSDERM 1 patch DAILY ANGELICA Administration Radiology Results: ITS Impressions Chest X-Ray 04/19/25 18:25 IMPRESSION: 1. Suspect left perihilar airspace disease. Can consider PA and lateral films with deep inspiration. Head CT 04/19/25 20:34 IMPRESSION: No acute intracranial hemorrhage or extra axial fluid collections. All CT scans at this facility are performed using low dose modulation techniques as appropriate to perform exam including the following: automated exposure control; use of iterative reconstruction technique; adjustment of the mA and/or kV according to patient size (this includes techniques or standardized protocols for targeted exams where dose is matched to indication/reason for exam). Chest/Abdomen/Pelvis CTA 04/19/25 20:37 IMPRESSION: CHEST- 1. Mildly enlarged lymph nodes left axilla. Malignancy not excluded. 2. 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 Recommend surgical consultation. 3. No PE or other acute cardiopulmonary findings. ABDOMEN/PELVIS- 1. No acute abdominopelvic findings. Modified Barium Swallow 04/23/25 10:18 IMPRESSION: Pharyngeal dysphagia with laryngeal penetration without aspiration. Please correlate with speech pathologist findings and specific feeding recommendations. Labs Labs: Laboratory Results - last 24 hr 04/22/25 04/22/25 04/23/25 18:17 23:41 04:03 Sodium 145 Potassium 2.7 L* Chloride 117 H Carbon Dioxide 24 Anion Gap 4 BUN 9 Creatinine 0.97 Estim Creat Clear Calc 70 Estimated GFR > 60 Glucose 125 H POC Capillary Glucose 120 H 124 H Calcium 7.7 L Magnesium 1.6 Total Bilirubin 0.5 AST 97 H ALT 68 H Alkaline Phosphatase 87 Total Protein 5.3 L Albumin 2.5 L 04/23/25 04/23/25 12:03 13:55 Sodium Potassium 3.1 L Chloride Carbon Dioxide Anion Gap BUN Creatinine Estim Creat Clear Calc Estimated GFR Glucose POC Capillary Glucose 116 H Calcium Magnesium 1.9 Total Bilirubin AST ALT Alkaline Phosphatase Total Protein Albumin
--- NOTE | 2025-04-23 16:23 | P.PNIM_ITS ---
Progress Note: A&P Assessment and Plan (1) New onset a-fib: Code(s): I48.91 - Unspecified atrial fibrillation Status: Acute Assessment and Plan: - new onset of AFib. -ECHO EF 60-65% and diastolic dysfunction indeterminate -the patient has already been on Lovenox. -Isai Vasc score is 5. cardiology (2) Congestive heart failure: Qualifiers: Heart failure type: combined systolic and diastolic Heart failure chronicity: chronic Qualified Code(s): I50.42 - Chronic combined systolic (congestive) and diastolic (congestive) heart failure Code(s): I50.9 - Heart failure, unspecified Status: Acute Assessment and Plan: ECHO showed EF 60-65%, diastolic dysfunction indeterminate -his Entresto has been on hold at this time as he is not awake enough to take p.o. medications. -resume spironolactone when patient is able to take p.o. well -troponin is 0.050 which could be elevated from heart failure or from the AFib RVR. Continue to monitor troponins. demand ischemia 04/21/2025 (3) HTN (hypertension): Qualifiers: Hypertension type: essential hypertension Qualified Code(s): I10 - Essential (primary) hypertension Code(s): I10 - Essential (primary) hypertension Status: Acute Assessment and Plan: -the patient is currently on amiodarone. -Entresto is on hold at this time -his current blood pressure is 103/54. (4) Mixed hyperlipidemia: Code(s): E78.2 - Mixed hyperlipidemia Status: Acute Assessment and Plan: -patient is not awake enough to take p.o. medication at this time. Resume home medication of rosuvastatin when able. (5) History of deep vein thrombosis: Code(s): Z86.718 - Personal history of other venous thrombosis and embolism Status: Acute Assessment and Plan: -weight based Lovenox for DVT and he has a history of PEs as well. He is cu rrently in AFib as well. (6) Hodgkin's lymphoma, adult: Code(s): C81.90 - Hodgkin lymphoma, unspecified, unspecified site Status: Acute Assessment and Plan: -Hematology-Oncology consultation would greatly be appreciated. His CT scan does show slightly enlarged axillary lymph node. Malignancy not excluded. (7) Leukocytosis: Code(s): D72.829 - Elevated white blood cell count, unspecified Status: Acute Assessment and Plan: -his white count is up to 21.6. -blood cultures are pending -the patient was empirically started on cefepime and vancomycin. -hematology/oncology has been consulted as well. -daily CBCs resolved (8) JONAH (obstructive sleep apnea): Code(s): G47.33 - Obstructive sleep apnea (adult) (pediatric) Status: Acute Assessment and Plan: -home settings for CPAP/BiPAP Plan DVT prophylaxis on full dose lovenox Subjective Date/time seen: 04/23/25 16:23 Interval history: Comfortable at bedside Review of Systems Review of Systems: ROS unobtainable: Yes unobtainable due to medical condition and unobtainable due to mental status Constitutional: Constitutional: Reports as per HPI Eyes: Eyes: Reports as per HPI and Reports no additional eye complaints ENT: Reports Normal hearing present Cardiovascular: Cardiovascular: Reports no additional cardiovascular complaints Respiratory: Respiratory: Reports as per HPI Gastrointestinal: Gastrointestinal: Reports as per HPI and Reports no additional gastrointestinal complaints Musculoskeletal: Musculoskeletal: Reports no additional musculoskeletal complaints Integumentary/Breasts: Skin/Breast: Reports system reviewed and no additional complaints, except as docu Neurologic: Reports system reviewed and no additional complaints, except as documented and Reports Normal hearing present Psychiatric: Psychiatric: Reports no additional psychiatric complaints and Reports as per HPI Hematologic/Lymphatic: Hematologic/Lymphatic: Reports no additional he matologic/lymphatic complaints Allergic/Immunologic: Allergic/Immunologic: Reports no additional allergic/immunologic complaints Exam Const: General: cooperative, no acute distress, well developed, awake, Physically active, average body habitus and well nourished Nutritional Appearance: average body habitus and well nourished Orientation/consciousness: oriented to person HENMT: Head: normal to inspection, No palpable skull fracture present and normocephalic Eyes: General: appearance normal, both eyes and all related structures Alignment and Position: alignment normal Periorbital: periorbital findings normal Eyelids: eyelids normal Conjunctivae: conjunctivae normal Sclera: sclerae normal Cornea: corneas normal Pupils: Equal, round and reactive pupils present and Pupil accommodation reflex normal EOM: EOMs intact bilaterally Neck: Neck: normal visual inspection Chest: Chest palpation & inspection: normal inspection of the chest Resp: Effort & Inspection: normal respiratory effort Auscultation: clear to auscultation bilaterally Cardio: Palpation: normal PMI Rate: regular rate Rhythm: regular rhythm Heart sounds: S1 normal heart sound present and S2 normal heart sound present Peripheral pulses: Peripheral pulses 2+ throughout GI: Inspection: normal to inspection Auscultation: normal bowel sounds Rectal Exam: deferred Back/Spine/Pelvis: Thoracic/Lumbar Spine: thoracic and lumbar spine normal to inspection Skin: General skin exam: normal color Lesions: no lesions Rashes: no rashes Trauma: no lacerations or abrasions Wounds: no wounds Hair: normal Nails: normal Neuro: General: oriented to person Cranial nerves: Yes Equal, round and reactive pupils present and Yes Normal hearing present Extrem: General: normal to inspection Right upper extremity: normal to ins pection and shoulder/upper arm Left upper extremity: normal to inspection and shoulder/upper arm Right lower extremity: normal to inspection Left lower extremity: normal to inspection Psych: Appearance: grossly normal Mental Status: mental status grossly normal Objective Data Vital Signs Vital Signs: Vital Signs - 24 hr 04/22/25 17:05 04/22/25 18:00 04/22/25 18:00 Temperature Pulse Rate 90 91 Respiratory Rate Blood Pressure 101/63 113/51 L Pulse Oximetry Oxygen Delivery Fraction of Inspired Oxygen 04/22/25 19:48 04/22/25 20:00 04/22/25 20:00 Temperature 97.9 F Pulse Rate 83 90 84 Respiratory Rate 16 Blood Pressure 149/59 H 149/59 H Pulse Oximetry 96 Oxygen Delivery Fraction of Inspired Oxygen 04/22/25 20:30 04/22/25 22:00 04/22/25 22:00 Temperature Pulse Rate 82 88 82 Respiratory Rate 20 Blood Pressure 107/52 L Pulse Oximetry 90 Oxygen Delivery Room Air Fraction of Inspired Oxygen 21 04/22/25 22:25 04/23/25 00:00 04/23/25 00:00 Temperature 98.2 F Pulse Rate 87 93 Respiratory Rate 16 18 Blood Pressure 107/52 L 110/61 Pulse Oximetry 97 100 Oxygen Delivery Room Air Fraction of Inspired Oxygen 04/23/25 00:00 04/23/25 00:00 04/23/25 01:46 Temperature Pulse Rate 83 81 100 Respiratory Rate 18 Blood Pressure 110/61 107/57 L Pulse Oximetry 97 Oxygen Delivery Fraction of Inspired Oxygen 04/23/25 02:00 04/23/25 02:00 04/23/25 03:39 Temperature Pulse Rate 76 88 Respiratory Rate Blood Pressure 107/57 L Pulse Oximetry Oxygen Delivery Room Air Fraction of Inspired Oxygen 04/23/25 03:59 04/23/25 04:00 04/23/25 04:10 Temperature 99 F Pulse Rate 87 81 88 Respiratory Rate 14 Blood Pressure 119/59 L 119/59 L Pulse Oximetry 98 Oxygen Delivery Fraction of Inspired Oxygen 04/23/25 04:10 04/23/25 05:51 04/23/25 06:00 Temperature Pulse Rate 88 88 89 Respiratory Rate Blood Pressure 119/59 L 110/55 L Pulse Oximetry Oxygen Delivery Fraction of Inspired Oxygen 04/23/25 07:00 04/23/25 08:00 04/23/25 08:00 Temperature 97.9 F Pulse Rate 86 75 97 Respiratory Rate 22 H Blood Pressure 113/79 Pulse Oximetry 98 Oxygen Delivery Fraction of Inspired Oxygen 04/23/25 08:00 04/23/25 10:00 04/23/25 10:00 Temperature Pulse Rate 75 92 Respiratory Rate Blood Pressure 113/79 124/66 Pulse Oximetry Oxygen Delivery Fraction of Inspired Oxygen 04/23/25 10:00 04/23/25 12:00 04/23/25 12:00 Temperature 97.9 F Pulse Rate 82 93 82 Respiratory Rate 22 H Blood Pressure 124/66 130/75 Pulse Oximetry 95 Oxygen Delivery Fraction of Inspired Oxygen 04/23/25 12:00 04/23/25 14:00 04/23/25 14:00 Temperature Pulse Rate 93 91 83 Respiratory Rate Blood Pressure 130/75 129/87 Pulse Oximetry Oxygen Delivery Fraction of Inspired Oxygen 04/23/25 14:00 04/23/25 15:31 Temperature Pulse Rate 87 93 Respiratory Rate Blood Pressure 129/87 125/70 Pulse Oximetry Oxygen Delivery Fraction of Inspired Oxygen Intake/Output Intake/Output: Intake & Output 04/20/25 04/21/25 04/22/25 04/23/25 23:59 23:59 22:59 23:59 Intake Total 947.6 3234.6 3031.4 1509.4 Output Total 1100 1200 1100 1050 Balance -152.4 2034.6 1931.4 459.4 Meds/Results Medications: Active Medications Generic Name Dose Route Start Last Admin Trade Name Freq PRN Reason Stop Dose Admin Acetaminophen 650 mg 04/19/25 21:40 Acetaminophen 325 Mg Tablet PO Q4H PRN Mild Pain (1-3) or Fever Amoxicillin/Clavulanate Potassium 1 tablet 04/23/25 21:00 Amoxicillin/Clavulanate K 875-125 Mg Tab PO 04/26/25 21:01 Q12HR ANGELICA Doxycycline Hyclate 100 mg 04/23/25 21:00 Doxycycline Hyclate 100 Mg Tablet PO 04/26/25 21:01 Q12HR ANGELICA Enoxaparin Sodium 115 mg 04/23/25 09:00 04/23/25 09:19 Enoxaparin 120 Mg/0.8 Ml Syringe SUB-Q 115 mg Q12H ANGELICA Administration Amiodarone HCl/Dextrose 360 mg in 200 mls @ 16.667 mls/hr 04/20/25 04:44 04/23/25 15:31 Nexterone 360 Mg/D5w 200 Ml IV CONT 0.5 mg/min .Q12H ANGELICA 16.67 mls/hr 0.5 MG/MIN Administration Dextrose/Sodium Chloride 1,000 mls @ 75 mls/hr 04/20/25 15:50 04/23/25 12:08 Dextrose 5% Sodium Chloride 0.9% IV CONT 75 mls/hr .[id number] AGNELICA Administration Ondansetron HCl 4 mg 04/19/25 21:40 Ondansetron Inj 4 Mg/2 Ml Vial IV PUSH Q4H PRN Nausea Rivastigmine 1 patch 04/20/25 09:00 04/23/25 09:21 Rivastigmine Tartrate 4.6 Mg Patch TRANSDERM 1 patch DAILY ANGELICA Administration Radiology Results: ITS Impressions Chest X-Ray 04/19/25 18:25 IMPRESSION: 1. Suspect left perihilar airspace disease. Can consider PA and lateral films with deep inspiration. Head CT 04/19/25 20:34 IMPRESSION: No acute intracranial hemorrhage or extra axial fluid collections. All CT scans at this facility are performed using low dose modulation techniques as appropriate to perform exam including the following: automated exposure control; use of iterative reconstruction technique; adjustment of the mA and/or kV according to patient size (this includes techniques or standardized protocols for targeted exams where dose is matched to indication/reason for exam). Chest/Abdomen/Pelvis CTA 04/19/25 20:37 IMPRESSION: CHEST- 1. Mildly enlarged lymph nodes left axilla. Malignancy not excluded. 2. 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 Recommend surgical consultation. 3. No PE or other acute cardiopulmonary findings. ABDOMEN/PELVIS- 1. No acute abdominopelvic findings. Modified Barium Swallow 04/23/25 10:18 IMPRESSION: Pharyngeal dysphagia with laryngeal penetration without aspiration. Please correlate with speech pathologist findings and specific feeding recommendations. Labs Labs: Laboratory Results - last 24 hr 04/22/25 04/22/25 04/23/25 18:17 23:41 04:03 Sodium 145 Potassium 2.7 L* Chloride 117 H Carbon Dioxide 24 Anion Gap 4 BUN 9 Creatinine 0.97 Estim Creat Clear Calc 70 Estimated GFR > 60 Glucose 125 H POC Capillary Glucose 120 H 124 H Calcium 7.7 L Magnesium 1.6 Total Bilirubin 0.5 AST 97 H ALT 68 H Alkaline Phosphatase 87 Total Protein 5.3 L Albumin 2.5 L 04/23/25 04/23/25 12:03 13:55 Sodium Potassium 3.1 L Chloride Carbon Dioxide Anion Gap BUN Creatinine Estim Creat Clear Calc Estimated GFR Glucose POC Capillary Glucose 116 H Calcium Magnesium 1.9 Total Bilirubin AST ALT Alkaline Phosphatase Total Protein Albumin Quality VTE Prophylaxis VTE prophylaxis: pharmacologic ordered
[2025-04-23] MEDS: MAGNESIUM SULF 1 GM/D5W 100 ML 1 GM/100 ML BAG IVPB (16:46)
--- NOTE | 2025-04-23 18:26 | WPDONCCN ---
Assessment and Plan Assessment and plan (1) History of deep vein thrombosis: Code(s): Z86.718 - Personal history of other venous thrombosis and embolism Status: Acute Assessment and Plan: Patient was diagnosed with right lower extremity DVT on March 13 and was started on anticoagulation therapy. He subsequently developed right lower extremity hematoma and has been having significant discomfort. Doppler studies done on March 19 showed no evidence of DVT in the right lower limb but [id number] popliteal vein and peroneal vein were not visualized. There was large hematoma. I will discontinue anticoagulation therapy due to large hematoma in worsening of hemoglobin. We will ask surgery consultation for IVC filter placement. (2) Hodgkin's lymphoma, adult: Code(s): C81.90 - Hodgkin lymphoma, unspecified, unspecified site Status: Acute Assessment and Plan: CT scan finding noted that only showed mildly enlarged axillary lymph node most likely reactive. We will continue to follow up in the office and will perform imaging studies as an outpatient. I will also order workup for anemia including iron studies LDH and B12 level. HPI Data of Consult Date/Time: 04/23/25 18:26 Requesting Physician: Ananth Qiu MD Primary Care Provider: Dalila De La Rosa APRN Consult Narrative Narrative: Og Beaver is a 74 year old male with previous history of classical Hodgkin lymphoma stage IV disease status post chemotherapy completed in February 2018 along with history of hypertension, hyperlipidemia, heart failure and the DVT was admitted to the hospital with generalized weakness. Patient was diagnosed with extensive DVT of the right lower extremity on March 13, 2025. Anticoagulation was started. Patient developed hematomas in the right lower extremities. He was admitted to [facility] and vascular surgery and General surgery was consulted and they recommended conservative management without surgical interventions. He was continued on Lovenox for DVT. He came into the hospital with generalized weakness and complaining of the right lower extremity discomfort. Patient also had CT scan of the right lower extremity done on March 19 that showed large hematoma in the posterior compartment of the right lower leg major 19.7 x 13.[address] scan chest abdomen pelvis from April 19 showed mildly enlarged lymph node in the axilla with no pulmonary embolism. In the abdomen there was no acute abdominal pelvic finding. Labs showed decline in hemoglobin now down to 8.8. Denies any other complaint other than tiredness and fatigue. Review of Systems Review of Systems: Twelve point review of system was reviewed [facility] Past Medical History Medical History (Updated 04/20/25 @ 11:01 by Noelle Graham APRN) Hip osteoarthritis Chronic lower back pain Left hip pain Right rib fracture Flank pain [employer]tr[employer] COVID-19 Ascending aortic aneurysm Encounter for routine adult health examination without abnormal findings Essential hypertension Gastroesophageal reflux disease without esophagitis TIA (transient ischemic attack) Depression Cognitive decline JONAH (obstructive sleep apnea) Short-term memory loss Arthritis GERD (gastroesophageal reflux disease) DVT (deep venous thrombosis) Hypercholesterolemia HTN (hypertension) Surgical History Surgical History (Updated 04/20/25 @ 04:54 by Ana Lowe APRN) H/O local excision of skin lesion H/O inguinal hernia repair H/O vein stripping History of tonsillectomy Family History Family History Father Hypertension Family history of coronary artery disease Family history of heart disease in male family member before age 55 Mother Hypertension Family history of congestive heart failure Unknown Heart disease Diabetes mellitus Depression Arthritis Hypertension High cholesterol Other Family history of elevated blood lipids Social History Social History (Updated 04/20/25 @ 04:57 by Ana Lowe APRN) Social History: Ever care of shama. He is . Elects his daughter, Aislinn Beaver, as his decision maker. Code Status: Full Code. Smoking status: Former smoker Second hand tobacco smoke exposure: No Alcohol intake: former Substance use: never Substance use type: does not use Do You Feel Safe in your Home?: Yes Lack of Transportation: No Lack of Food: Never True Current Housing: I Have Housing Concerned About Future Housing: No Difficulty Paying Gas/Electric Bills: No Difficulty Paying for Meds: No Currently Unemployed: No Education: Master's Degree or Higher Difficulty w/ Childcare or Family Care: No Living arrangements: assisted living Occupation/Education: retired Gender identity (if verbalized by the patient): Male Spiritual care concerns: No Meds Home Medications and Allergies Home Medications ?Medication ?Instructions ?Recorded ?Confirmed ?Type multivitamin 1 tablet PO DAILY 04/11/19 04/20/25 History mirtazapine 15 mg tablet 15 mg PO DAILY #1 tablet 06/04/21 10/31/25 Rx empagliflozin 10 mg tablet 10 mg PO DAILY #30 tabs 08/03/21 04/20/25 Rx (Jardiance) polysaccharide iron complex 150 mg See Rx Instructions .Route 08/22/21 04/20/25 Rx iron capsule (Ferrex) .COMPLEX #180 caps metoprolol succinate 25 mg 25 mg PO DAILY 08/29/21 04/19/25 History tablet,extended release 24 hr (Toprol XL) rivastigmine 4.6 mg/24 hour 4.6 mg transdermal DAILY 08/29/21 04/20/25 History transdermal patch sacubitril 49 mg-valsartan 51 mg 1 tablet PO BID 03/18/22 04/20/25 History tablet (Entresto) lansoprazole 30 mg capsule,delayed 30 mg PO DAILY #90 caps 10/02/22 04/20/25 Rx release apixaban 5 mg tablet (Eliquis) 5 mg PO Q12H #60 tabs 05/28/23 04/20/25 Rx Held on 04/19/25. Instructions: taking Lovenox aspirin 81 mg tablet,delayed 81 mg PO DAILY 10/25/23 04/20/25 History release (Adult Aspirin Regimen) Held on 04/19/25. Instructions: On Lovenox therapy rosuvastatin 40 mg tablet 40 mg PO DAILY 10/25/23 04/20/25 History acetaminophen 325 mg tablet 650 mg PO Q6H PRN pain 04/19/25 04/19/25 History alprazolam 0.25 mg tablet (Xanax) 0.25 mg PO BID 04/19/25 04/19/25 History enoxaparin 120 mg/0.8 mL 120 mg subcut Q12H 04/19/25 04/19/25 History subcutaneous syringe gabapentin 100 mg capsule 200 mg PO Q12H 04/19/25 04/19/25 History hydrocodone 10 mg-acetaminophen 1 tablet PO Q4H PRN pain 04/19/25 04/19/25 History 325 mg tablet buspirone 5 mg tablet 15 mg PO Q12HR 04/20/25 04/19/25 History melatonin 3 mg capsule 3 mg PO HS PRN sleep 04/20/25 04/20/25 History methocarbamol 500 mg tablet 500 mg PO Q8H PRN spasms 04/20/25 04/20/25 History naloxone 4 mg/actuation nasal 4 mg intranasal Q2-3M PRN opioid 04/20/25 04/20/25 History spray (Narcan) overdose polyethylene glycol 3350 17 gram 17 g PO DAILY 04/20/25 04/20/25 History oral powder packet (Miralax) sacubitril 24 mg-valsartan 26 mg 0.5 tablet PO BID 04/20/25 04/20/25 History tablet (Entresto) sennosides 8.6 mg-docusate sodium 1 tab-cap PO DAILY 04/20/25 04/20/25 History 50 mg tablet (2-in-1 Laxative) spironolactone 25 mg tablet 12.5 mg PO QAM 04/20/25 04/19/25 History vortioxetine 5 mg tablet 5 mg PO DAILY 04/20/25 04/20/25 History Allergies Allergy/AdvReac Type Severity Reaction Status Date / Time apricot Allergy Severe throat Verified 04/20/25 00:36 SWELLING Vital Signs Vital Signs - 24 hr 04/22/25 19:48 04/22/25 20:00 04/22/25 20:00 Temperature 36.6 C Pulse Rate 83 90 84 Respiratory Rate 16 Blood Pressure 149/59 H 149/59 H Pulse Oximetry 96 Oxygen Delivery Fraction of Inspired Oxygen 04/22/25 20:30 04/22/25 22:00 04/22/25 22:00 Temperature Pulse Rate 82 88 82 Respiratory Rate 20 Blood Pressure 107/52 L Pulse Oximetry 90 Oxygen Delivery Room Air Fraction of Inspired Oxygen 21 04/22/25 22:25 04/23/25 00:00 04/23/25 00:00 Temperature 36.8 C Pulse Rate 87 93 Respiratory Rate 16 18 Blood Pressure 107/52 L 110/61 Pulse Oximetry 97 100 Oxygen Delivery Room Air Fraction of Inspired Oxygen 04/23/25 00:00 04/23/25 00:00 04/23/25 01:46 Temperature Pulse Rate 83 81 100 Respiratory Rate 18 Blood Pressure 110/61 107/57 L Pulse Oximetry 97 Oxygen Delivery Fraction of Inspired Oxygen 04/23/25 02:00 04/23/25 02:00 04/23/25 03:39 Temperature Pulse Rate 76 88 Respiratory Rate Blood Pressure 107/57 L Pulse Oximetry Oxygen Delivery Room Air Fraction of Inspired Oxygen 04/23/25 03:59 04/23/25 04:00 04/23/25 04:10 Temperature 37.2 C Pulse Rate 87 81 88 Respiratory Rate 14 Blood Pressure 119/59 L 119/59 L Pulse Oximetry 98 Oxygen Delivery Fraction of Inspired Oxygen 04/23/25 04:10 04/23/25 05:51 04/23/25 06:00 Temperature Pulse Rate 88 88 89 Respiratory Rate Blood Pressure 119/59 L 110/55 L Pulse Oximetry Oxygen Delivery Fraction of Inspired Oxygen 04/23/25 07:00 04/23/25 08:00 04/23/25 08:00 Temperature 36.6 C Pulse Rate 86 75 97 Respiratory Rate 22 H Blood Pressure 113/79 Pulse Oximetry 98 Oxygen Delivery Fraction of Inspired Oxygen 04/23/25 08:00 04/23/25 10:00 04/23/25 10:00 Temperature Pulse Rate 75 92 Respiratory Rate Blood Pressure 113/79 124/66 Pulse Oximetry Oxygen Delivery Fraction of Inspired Oxygen 04/23/25 10:00 04/23/25 12:00 04/23/25 12:00 Temperature 36.6 C Pulse Rate 82 93 82 Respiratory Rate 22 H Blood Pressure 124/66 130/75 Pulse Oximetry 95 Oxygen Delivery Fraction of Inspired Oxygen 04/23/25 12:00 04/23/25 14:00 04/23/25 14:00 Temperature Pulse Rate 93 91 83 Respiratory Rate Blood Pressure 130/75 129/87 Pulse Oximetry Oxygen Delivery Fraction of Inspired Oxygen 04/23/25 14:00 04/23/25 15:31 04/23/25 16:00 Temperature Pulse Rate 87 93 88 Respiratory Rate Blood Pressure 129/87 125/70 Pulse Oximetry Oxygen Delivery Fraction of Inspired Oxygen 04/23/25 16:00 04/23/25 16:00 04/23/25 18:00 Temperature 36.9 C Pulse Rate 85 85 Respiratory Rate 20 Blood Pressure 133/88 133/88 128/67 Pulse Oximetry 94 Oxygen Delivery Fraction of Inspired Oxygen 04/23/25 18:00 04/23/25 18:00 Temperature Pulse Rate 84 72 Respiratory Rate Blood Pressure 128/67 Pulse Oximetry Oxygen Delivery Fraction of Inspired Oxygen Exam Narrative: Lungs are clear to auscultation bilaterally Cardiovascular regular rate rhythm no murmurs Abdomen soft nontender nondistended Extremities significant right lower extremity edema Results Labs 04/22/25 04:30 04/23/25 13:55 Labs: BMP 04/23/25 04/23/25 04:03 13:55 Sodium 145 Potassium 2.7 L* 3.1 L Chloride 117 H Carbon Dioxide 24 BUN 9 Creatinine 0.97 Glucose 125 H Calcium 7.7 L Liver Function 04/23/25 Range/Units 04:03 Total Bilirubin 0.5 (0.2-1.3) mg/dL AST 97 H (17-59) U/L ALT 68 H (6-50) U/L Alkaline Phosphatase 87 (38-126) U/L Albumin 2.5 L (3.5-5.1) g/dL
[2025-04-23 19:30] LABS: Iron 34 ug/dL (49-181)
[2025-04-23 19:40] LABS: Percent Iron Saturation 14 % (20-50)
[2025-04-23 20:12] LABS: Ferritin 334.00 ng/mL (11.1-264)
[2025-04-23] MEDS: DOXYCYCLINE HYCLATE 100 MG TABLET PO (20:48)
[2025-04-23 21:04] LABS: Vitamin B12 507.0 pg/mL (239-931)
[2025-04-24] VITALS (17 sets, daily range): BP systolic 101–151; BP diastolic 49–116; PULSE 62–90; RESP 16–44; TEMP 36.4–37.1; O2SAT 95–99
[2025-04-24] MEDS: DEXTROSE 5%/0.9% SOD CHL 1,000 ML 75 ML IV CONT ×2 (01:08→19:17)
[2025-04-24 04:12] LABS: Hematocrit 28.9 % (42.0-52.0); Hemoglobin 8.9 g/dL (14.0-18.0); Immature Granulocyte Percent A 3.8 % (0-0.5); Lymphocytes Absolute Auto 0.76 K/mm3 (0.9-3.2); Mean Corpuscular HGB Conc 30.8 g/dl (32-36); Mean Corpuscular Hemoglobin 27.3 pg (26-34); Mean Corpuscular Volume 88.7 fl (80-100); Nucleated Red Blood Cells Absolute Auto 0.000 K/mm3 (0.0-0.012); Nucleated Red Blood Cells Perc 0.0 % (0.0-0.2); Platelet Count Result 237 k/mm3 (150-375); Red Blood Count 3.26 M/mm3 (4.6-6.20); White Blood Count 7.9 K/mm3 (4.5-10.0)
[2025-04-24 04:31] LABS: Alanine Aminotransferase 56 U/L (6-50); Albumin Level 2.5 g/dL (3.5-5.1); Alkaline Phosphatase 91 U/L (38-126); Anion Gap 4 mmol/L (4-12); Aspartate Amino Transferase 66 U/L (17-59); Bilirubin,Total 0.5 mg/dL (0.2-1.3); Blood Urea Nitrogen 7 mg/dL (9-20); Calcium 7.6 mg/dL (8.4-10.2); Carbon Dioxide 23 mmol/L (22-30); Chloride 118 mmol/L (98-107); Estimated CRCL calculation 74 ml/min; Estimated Glomerular Filt Rate > 60; Glucose 127 mg/dL (65-110); Magnesium 2.1 mg/dL (1.6-2.3); Potassium 2.7 mmol/L (3.4-5.0); Sodium 145 mmol/L (137-145); Total Protein 5.3 g/dL (6.3-8.2)
[2025-04-24] MEDS: POTASSIUM CHLORIDE 20 MEQ ER TABLET 40 MEQ PO (05:55)
[2025-04-24] MEDS: POTASSIUM CHLORIDE INJ 40 MEQ in SODIUM CHLORIDE 0.9% IV 500 ML 130 MEQ IVPB (06:00)
[2025-04-24] MEDS: ENOXAPARIN 120 MG/0.8 ML SYRINGE 115 MG SUB-Q (08:59)
[2025-04-24] MEDS: DOXYCYCLINE HYCLATE 100 MG TABLET PO ×2 (08:59→20:08)
[2025-04-24] MEDS: RIVASTIGMINE TARTRATE 4.6 MG PATCH 1 PATCH TRANSDERM (09:00)
[2025-04-24] MEDS: ACETAMINOPHEN 325 MG TABLET 650 MG PO ×2 (10:20→20:08)
--- NOTE | 2025-04-24 10:43 | PM.CNGS ---
Assessment and Plan Assessment and plan (1) Hematoma of right lower extremity: Code(s): S80.11XA - Contusion of right lower leg, initial encounter Status: Acute Assessment and Plan: Patient presented to the ED on 04/19/2025 with altered mental status and weakness. He was recently admitted to [facility] from 03/13/2025 to 03/10 03/15 with right lower quadrant DVT. He was ultimately transferred to [facility] after experiencing complications concerning for compartment syndrome. He was started on anticoagulation. Upon this current admission, patient started on therapeutic Lovenox. He was found to be in AFib and started on amiodarone. Cardiology on board. Hematology was consulted for leukocytosis and history of Hodgkin's lymphoma, as well as slightly enlarged axillary lymph node on CT. They are requesting placement of an IVC filter due to large right calf hematoma that was noted on a CT from 03/19/2025 as well as worsening hemoglobin levels. Hgb today 8.9. Patient endorses right lower extremity pain, worse in his calf. Physical exam reveals no redness or warmth, but exquisite tenderness and some skin tightness. Peripheral edema present. Will coordinate with packing house laborer for placement of IVC filter. This will likely be tomorrow. Okay for patient to continue with current diet, as local anesthetic will be used for procedure. (2) History of deep vein thrombosis: Code(s): Z86.718 - Personal history of other venous thrombosis and embolism Status: Acute Assessment and Plan: See above. (3) New onset a-fib: Code(s): I48.91 - Unspecified atrial fibrillation Status: Acute Assessment and Plan: Continue amiodarone. Appreciate cardiology recs. (4) Leukocytosis: Code(s): D72.829 - Elevated white blood cell count, unspecified Status: Acute Assessment and Plan: Initially 21.6, now down to 7.9. Continue Augmentin and doxycycline. (5) Hodgkin's lymphoma, adult: Code(s): C81.90 - Hodgkin lymphoma, unspecified, unspecified site Status: Acute Assessment and Plan: Oncology on board. CT scan noted mildly enlarged axillary lymph node most likely reactive. Patient to follow-up as an outpatient with heme Onc. Iron studies and B12 levels ordered. (6) Congestive heart failure: Qualifiers: Heart failure chronicity: chronic Heart failure type: combined systolic and diastolic Qualified Code(s): I50.42 - Chronic combined systolic (congestive) and diastolic (congestive) heart failure Code(s): I50.9 - Heart failure, unspecified Status: Acute (7) HTN (hypertension): Qualifiers: Hypertension type: essential hypertension Qualified Code(s): I10 - Essential (primary) hypertension Code(s): I10 - Essential (primary) hypertension Status: Acute (8) Mixed hyperlipidemia: Code(s): E78.2 - Mixed hyperlipidemia Status: Acute (9) JONAH (obstructive sleep apnea): Code(s): G47.33 - Obstructive sleep apnea (adult) (pediatric) Status: Acute Plan Discussed patient's case and plan of care with Dr. Man. History of Present Illness Consult details Consult date: 04/24/25 Reason for consult: other (IVC filter placement) Requesting physician: Vasiliy Solano MD Narrative: Patient is a 74 year old male with history of CHF, JONAH,Hodgkin lymphoma stage IV s/p chemo 2017, thoracic aortic aneurysm (5.8 cm), history of PE/DVT (currently on therapeutic Lovenox) who we have been asked to see in surgical consultation for placement of an IVC filter. Patient was recently admitted to [facility] from 03/13/25-03/19/25 with RLQ DVT. He was ultimately transferred to [facility] after he experienced complications concerning for compartment syndrome. He was started on anticoagulation and discharged. Currently on subQ Lovenox. Reportedly, he was on Eliquis at home. Patient again presented to [facility] on 04/19 (current admission) with complaints of AMS and weakness. He was admitted to the hospital for further workup. Found to be in Afib and started on amiodarone. Also had WBC count up to 21.6 and was started on cefepime and vanc. Hem/onc consulted for leukocytosis and hx of Hodgkin lymphoma and slightly enlarged axillary lymph node on CT. OF note, Doppler studies done on March 19 showed no evidence of DVT in the right lower limb but [id number] popliteal vein and peroneal vein were not visualized. There was large hematoma to the posterior compartment of the right lower leg that was also confirmed with lower extremity CT. Hem/onc recommending placement of IVC filter by surgery team due to large hematoma and worsening hemoglobin levels. Today's labs revealed a hemoglobin level of 8.9. WBC improved to 7.9. Upon interview with patient today, he endorses right lower extremity pain, worse in his calf than his thigh. Had difficulty working with PT/OT this morning due to pain. Endorses recent R hip replacement a few years ago. Also endorses inguinal hernia repair when he was 25. He is unable to recall which side. (Physical exam reveals left sided incisional scar). [facility] Past Medical History Medical History (Updated 04/24/25 @ 11:19 by Melida Kelley PA-C) Hip osteoarthritis Chronic lower back pain Left hip pain Right rib fracture Flank pain Intertrigo COVID-19 Ascending aortic aneurysm Encounter for routine adult health examination without abnormal findings Essential hypertension Gastroesophageal reflux disease without esophagitis TIA (transient ischemic attack) Depression Cognitive decline JONAH (obstructive sleep apnea) Short-term memory loss Arthritis GERD (gastroesophageal reflux disease) DVT (deep venous thrombosis) Hypercholesterolemia HTN (hypertension) Surgical History Surgical History (Updated 04/20/25 @ 04:54 by Ana Lowe APRN) H/O local excision of skin lesion H/O inguinal hernia repair H/O vein stripping History of tonsillectomy Family History Family History Father Hypertension Family history of coronary artery disease Family history of heart disease in male family member before age 55 Mother Hypertension Family history of congestive heart failure Unknown Heart disease Diabetes mellitus Depression Arthritis Hypertension High cholesterol Other Family history of elevated blood lipids Social History Social History (Updated 04/20/25 @ 04:57 by Ana Lowe APRN) Social History: [facility] of [facility]. He is . Elects his daughter, Aislinn Beaver, as his decision maker. Code Status: Full Code. Smoking status: Former smoker Second hand tobacco smoke exposure: No Alcohol intake: former Substance use: never Substance use type: does not use Do You Feel Safe in your Home?: Yes Lack of Transportation: No Lack of Food: Never True Current Housing: I Have Housing Concerned About Future Housing: No Difficulty Paying Gas/Electric Bills: No Difficulty Paying for Meds: No Currently Unemployed: No Education: Master's Degree or Higher Difficulty w/ Childcare or Family Care: No Living arrangements: assisted living Occupation/Education: retired Gender identity (if verbalized by the patient): Male Spiritual care concerns: No Meds Home Medications and Allergies Home Medications ?Medication ?Instructions ?Recorded ?Confirmed ?Type multivitamin 1 tablet PO DAILY 04/11/19 04/20/25 History mirtazapine 15 mg tablet 15 mg PO DAILY #1 tablet 11/22/20 04/20/25 Rx empagliflozin 10 mg tablet 10 mg PO DAILY #30 tabs 08/03/21 04/20/25 Rx (Jardiance) polysaccharide iron complex 150 mg See Rx Instructions .Route 08/22/21 04/20/25 Rx iron capsule (Ferrex) .COMPLEX #180 caps metoprolol succinate 25 mg 25 mg PO DAILY 08/29/21 04/19/25 History tablet,extended release 24 hr (Toprol XL) rivastigmine 4.6 mg/24 hour 4.6 mg transdermal DAILY 08/29/21 04/20/25 History transdermal patch sacubitril 49 mg-valsartan 51 mg 1 tablet PO BID 03/18/22 04/20/25 History tablet (Entresto) lansoprazole 30 mg capsule,delayed 30 mg PO DAILY #90 caps 10/02/22 04/20/25 Rx release apixaban 5 mg tablet (Eliquis) 5 mg PO Q12H #60 tabs 05/28/23 04/20/25 Rx Held on 04/19/25. Instructions: taking Lovenox aspirin 81 mg tablet,delayed 81 mg PO DAILY 10/25/23 04/20/25 History release (Adult Aspirin Regimen) Held on 04/19/25. Instructions: On Lovenox therapy rosuvastatin 40 mg tablet 40 mg PO DAILY 10/25/23 04/20/25 History acetaminophen 325 mg tablet 650 mg PO Q6H PRN pain 04/19/25 04/19/25 History alprazolam 0.25 mg tablet (Xanax) 0.25 mg PO BID 04/19/25 04/19/25 History enoxaparin 120 mg/0.8 mL 120 mg subcut Q12H 04/19/25 04/19/25 History subcutaneous syringe gabapentin 100 mg capsule 200 mg PO Q12H 04/19/25 04/19/25 History hydrocodone 10 mg-acetaminophen 1 tablet PO Q4H PRN pain 04/19/25 04/19/25 History 325 mg tablet buspirone 5 mg tablet 15 mg PO Q12HR 04/20/25 04/19/25 History melatonin 3 mg capsule 3 mg PO HS PRN sleep 04/20/25 04/20/25 History methocarbamol 500 mg tablet 500 mg PO Q8H PRN spasms 04/20/25 04/20/25 History naloxone 4 mg/actuation nasal 4 mg intranasal Q2-3M PRN opioid 04/20/25 04/20/25 History spray (Narcan) overdose polyethylene glycol 3350 17 gram 17 g PO DAILY 04/20/25 04/20/25 History oral powder packet (Miralax) sacubitril 24 mg-valsartan 26 mg 0.5 tablet PO BID 04/20/25 04/20/25 History tablet (Entresto) sennosides 8.6 mg-docusate sodium 1 tab-cap PO DAILY 04/20/25 04/20/25 History 50 mg tablet (2-in-1 Laxative) spironolactone 25 mg tablet 12.5 mg PO QAM 04/20/25 04/19/25 History vortioxetine 5 mg tablet 5 mg PO DAILY 04/20/25 04/20/25 History Allergies Allergy/AdvReac Type Severity Reaction Status Date / Time apricot Allergy Severe throat Verified 04/20/25 00:36 SWELLING Vital Signs Vital Signs - 24 hr 04/23/25 12:00 04/23/25 12:00 04/23/25 12:00 Temperature 97.9 F Pulse Rate 93 82 93 Respiratory Rate 22 H Blood Pressure 130/75 130/75 Pulse Oximetry 95 Oxygen Delivery 04/23/25 14:00 04/23/25 14:00 04/23/25 14:00 Temperature Pulse Rate 91 83 87 Respiratory Rate Blood Pressure 129/87 129/87 Pulse Oximetry Oxygen Delivery 04/23/25 15:31 04/23/25 16:00 04/23/25 16:00 Temperature 98.5 F Pulse Rate 93 88 85 Respiratory Rate 20 Blood Pressure 125/70 133/88 Pulse Oximetry 94 Oxygen Delivery 04/23/25 16:00 04/23/25 18:00 04/23/25 18:00 Temperature Pulse Rate 85 84 Respiratory Rate Blood Pressure 133/88 128/67 128/67 Pulse Oximetry Oxygen Delivery 04/23/25 18:00 04/23/25 20:00 04/23/25 20:00 Temperature 98.3 F Pulse Rate 72 84 88 Respiratory Rate 20 Blood Pressure 142/81 H 142/81 H Pulse Oximetry 97 Oxygen Delivery 04/23/25 20:00 04/23/25 22:00 04/23/25 22:00 Temperature Pulse Rate 72 90 92 Respiratory Rate Blood Pressure 144/81 H Pulse Oximetry Oxygen Delivery 04/23/25 22:00 04/23/25 23:23 04/24/25 00:00 Temperature 98.0 F 98.1 F Pulse Rate 83 78 Respiratory Rate 18 20 Blood Pressure 144/81 H 151/66 H Pulse Oximetry 97 97 Oxygen Delivery Room Air 04/24/25 00:00 04/24/25 00:00 04/24/25 02:00 Temperature Pulse Rate 81 86 90 Respiratory Rate Blood Pressure 151/66 H Pulse Oximetry Oxygen Delivery 04/24/25 02:00 04/24/25 02:00 04/24/25 02:06 Temperature Pulse Rate 85 85 Respiratory Rate Blood Pressure 133/76 133/76 133/76 Pulse Oximetry Oxygen Delivery 04/24/25 02:06 04/24/25 03:28 04/24/25 04:00 Temperature 97.6 F Pulse Rate 85 78 Respiratory Rate 18 Blood Pressure 133/76 140/72 Pulse Oximetry 97 Oxygen Delivery Room Air 04/24/25 04:00 04/24/25 04:00 04/24/25 06:00 Temperature Pulse Rate 88 81 76 Respiratory Rate Blood Pressure 140/72 Pulse Oximetry Oxygen Delivery 04/24/25 06:05 04/24/25 08:00 04/24/25 09:05 Temperature 98.7 F Pulse Rate 75 81 Respiratory Rate 16 Blood Pressure 126/87 139/73 Pulse Oximetry 98 Oxygen Delivery Room Air 04/24/25 09:21 04/24/25 10:00 Temperature Pulse Rate 82 Respiratory Rate Blood Pressure 149/116 H Pulse Oximetry Oxygen Delivery Room Air Exam Const: General: comfortable and no acute distress Eyes: General: appearance normal, both eyes and all related structures Resp: Effort & Inspection: normal respiratory effort Cardio: Rate: regular rate GI: Other: Horizontal incisional scar to left lower groin area, presumably from open inguinal hernia repair Skin: Other: Superficial hematoma to medial right lower biceps area Extrem: Other: Incisional scarring to R hip, presumably from hip replacement that patient states was a few years ago. Patient is extremely tender to right calf area. Unable to move this leg without assistance due to pain. Does not appear to have any erythema to the leg. No areas of increased warmth. Has some edema to lower legs. Difficult to palpate distal pulses. Sensation intact. Psych: Affect: normal affect Results Labs 04/24/25 03:59 04/24/25 03:59 Labs: Abnormal lab results 04/23/25 04/23/25 04/23/25 Range/Units 12:03 13:55 18:07 RBC (4.6-6.20) M/mm3 Hgb (14.0-18.0) g/dL Hct (42.0-52.0) % MCHC (32-36) g/dl RDW (11.5-14.5) % Immature Gran % (Auto) (0-0.5) % Neut % (Auto) (45.5-73.1) % Lymph % (Auto) (18.3-44.2) % Eos % (Auto) (0-4.4) % Lymph # (Auto) (0.9-3.2) K/mm3 Eos # (Auto) (0-0.3) K/mm3 Abs Immat Gran (auto) (0.00-0.031) K/mm3 Potassium 3.1 L (3.4-5.0) mmol/L Chloride (98-107) mmol/L BUN (9-20) mg/dL Glucose (65-110) mg/dL POC Capillary Glucose 116 H 136 H (65-105) mg/dl Calcium (8.4-10.2) mg/dL Iron 34 L (49-181) ug/dL TIBC 240 L (265-497) ug/dL % Saturation 14 L (20-50) % Ferritin 334.00 H (11.1-264) ng/mL AST (17-59) U/L ALT (6-50) U/L Lactate Dehydrogenase 600 H (120-246) U/L Total Protein (6.3-8.2) g/dL Albumin (3.5-5.1) g/dL 04/23/25 04/24/25 04/24/25 Range/Units 23:50 03:59 06:02 RBC 3.26 L (4.6-6.20) M/mm3 Hgb 8.9 L (14.0-18.0) g/dL Hct 28.9 L (42.0-52.0) % MCHC 30.8 L (32-36) g/dl RDW 15.9 H (11.5-14.5) % Immature Gran % (Auto) 3.8 H (0-0.5) % Neut % (Auto) 73.5 H (45.5-73.1) % Lymph % (Auto) 9.6 L (18.3-44.2) % Eos % (Auto) 4.9 H (0-4.4) % Lymph # (Auto) 0.76 L (0.9-3.2) K/mm3 Eos # (Auto) 0.4 H (0-0.3) K/mm3 Abs Immat Gran (auto) 0.30 H (0.00-0.031) K/mm3 Potassium 2.7 L* (3.4-5.0) mmol/L Chloride 118 H (98-107) mmol/L BUN 7 L (9-20) mg/dL Glucose 127 H (65-110) mg/dL POC Capillary Glucose 137 H 143 H (65-105) mg/dl Calcium 7.6 L (8.4-10.2) mg/dL Iron (49-181) ug/dL TIBC (265-497) ug/dL % Saturation (20-50) % Ferritin (11.1-264) ng/mL AST 66 H (17-59) U/L ALT 56 H (6-50) U/L Lactate Dehydrogenase (120-246) U/L Total Protein 5.3 L (6.3-8.2) g/dL Albumin 2.5 L (3.5-5.1) g/dL Diabetes panel 04/23/25 04/24/25 Range/Units 13:55 03:59 Sodium 145 (137-145) mmol/L Potassium 3.1 L 2.7 L* (3.4-5.0) mmol/L Chloride 118 H (98-107) mmol/L Carbon Dioxide 23 (22-30) mmol/L BUN 7 L (9-20) mg/dL Creatinine 0.95 (0.7-1.3) mg/dL Glucose 127 H (65-110) mg/dL Calcium 7.6 L (8.4-10.2) mg/dL AST 66 H (17-59) U/L ALT 56 H (6-50) U/L Alkaline Phosphatase 91 (38-126) U/L Total Protein 5.3 L (6.3-8.2) g/dL Albumin 2.5 L (3.5-5.1) g/dL Calcium panel 04/24/25 Range/Units 03:59 Calcium 7.6 L (8.4-10.2) mg/dL Albumin 2.5 L (3.5-5.1) g/dL Pituitary panel 04/23/25 04/24/25 Range/Units 13:55 03:59 Sodium 145 (137-145) mmol/L Potassium 3.1 L 2.7 L* (3.4-5.0) mmol/L Chloride 118 H (98-107) mmol/L Carbon Dioxide 23 (22-30) mmol/L BUN 7 L (9-20) mg/dL Creatinine 0.95 (0.7-1.3) mg/dL Glucose 127 H (65-110) mg/dL Calcium 7.6 L (8.4-10.2) mg/dL Adrenal panel 04/23/25 04/24/25 Range/Units 13:55 03:59 Sodium 145 (137-145) mmol/L Potassium 3.1 L 2.7 L* (3.4-5.0) mmol/L Chloride 118 H (98-107) mmol/L Carbon Dioxide 23 (22-30) mmol/L BUN 7 L (9-20) mg/dL Creatinine 0.95 (0.7-1.3) mg/dL Glucose 127 H (65-110) mg/dL Calcium 7.6 L (8.4-10.2) mg/dL Total Bilirubin 0.5 (0.2-1.3) mg/dL AST 66 H (17-59) U/L ALT 56 H (6-50) U/L Alkaline Phosphatase 91 (38-126) U/L Total Protein 5.3 L (6.3-8.2) g/dL Albumin 2.5 L (3.5-5.1) g/dL All other labs normal.
--- NOTE | 2025-04-24 11:30 | PM.PNCARD ---
Progress Note: A&P Assessment and Plan (1) New onset a-fib: Code(s): I48.91 - Unspecified atrial fibrillation Status: Acute (2) Pulmonary embolism: Qualifiers: Pulmonary embolism type: single subsegmental (without acute cor pulmonale) Qualified Code(s): I26.93 - Single subsegmental pulmonary embolism without acute cor pulmonale Code(s): I26.99 - Other pulmonary embolism without acute cor pulmonale Status: Acute (3) Cardiomyopathy: Code(s): I42.9 - Cardiomyopathy, unspecified Status: Acute (4) Thoracic aortic aneurysm without rupture: Qualifiers: Thoracic aorta location: ascending aorta Qualified Code(s): I71.21 - Aneurysm of the ascending aorta, without rupture Code(s): I71.2 - Thoracic aortic aneurysm, without rupture Status: Acute (5) Hodgkin's lymphoma, adult: Code(s): C81.90 - Hodgkin lymphoma, unspecified, unspecified site Status: Acute (6) Congestive heart failure: Qualifiers: Heart failure type: combined systolic and diastolic Heart failure chronicity: chronic Qualified Code(s): I50.42 - Chronic combined systolic (congestive) and diastolic (congestive) heart failure Code(s): I50.9 - Heart failure, unspecified Status: Acute (7) Sepsis: Code(s): A41.9 - Sepsis, unspecified organism Status: Acute (8) AMS (altered mental status): Code(s): R41.82 - Altered mental status, unspecified Status: Acute (9) DVT (deep venous thrombosis): Code(s): I82.409 - Acute embolism and thrombosis of unspecified deep veins of unspecified lower extremity Status: Acute Plan Impression: 1. Paroxysmal atrial fibrillation with rapid ventricular response. Currently significant improvement of the heart rate at 80 per minute on IV amiodarone drip. Monitor shows atrial fibrillation. 2. Recent diagnosis of DVT involving her right leg. Right calf is tender and is swollen 3. CT scan of the chest positive for stable ascending aorta aneurysm measuring at 5.8 cm. 4. Large hematoma of the posterior compartment of the right leg without active contrast extravasation on previous CT on 03/19/2025. Bilateral Roman cyst noted. 5. Morbid obesity. Patient weighs 115.5 kg. 6. Acute mental status changes with garbled speech. Significantly improved. CT scan of the head is negative for any acute intracranial process. 7. Severe hypokalemia admission at 2.7 now improved to 3.1. 8. Elevated proBNP at 3820. Troponin I was 0.05 and remained stable without suggestion for acute coronary syndrome. Recommendations: #. Surgical consult for right leg hematoma and possible need for evacuation. Patient has severe pain in the right leg. Follow-up CT scan of the right leg order stat. #. Currently on IV amiodarone. Finish loading does of total of 360 mg or 24 hours and then start patient on oral amiodarone 400 mg b.i.d.. Monitor shows improved heart rate. -DC IV amiodarone and start patient on oral amiodarone 400 mg p.o. b.i.d.. #. Currently blood pressure 139/73 and heart rate is 82 per minute. Echocardiogram shows technically difficult echo with preserved systolic function at 60-65% and atrial fibrillation. #. Current medications reviewed. Currently on IV amiodarone drip, full-dose Lovenox, add metoprolol succinate 50 mg daily, Aldactone 25 mg daily and Lasix 40 mg daily for chronic diastolic heart failure. #. Hematology and general surgery consult noted. IVC filter recommended by hematology service due to worsening hemoglobin. However significant concern is therefore continued and increased moderately severe right calf pain. Follow-up CT scan is ordered to see if there is any for evacuation of the right calf hematoma. Hemoglobin is 8.9 in patient may be having bleeding into the right calf. Subjective Date/time seen: 04/24/25 11:30 Interval history: Review of HPI: 74-year-old gentleman admitted on 04/20/2025 with atrial fibrillation and rapid ventricular response at the her her in 35 per minute. Patient has significant cardiac problems including thoracic aortic aneurysm measuring 5.8 cm, history of pulmonary embolism/DVT on therapeutic Lovenox. Patient was recently diagnosed with DVT on the right leg and subsequently discharged on subQ Lovenox. Patient was subsequently treated at [facility] a right leg DVT and suspicion for compartment syndrome. The surgery was done and patient discharged on anticoagulation. Patient also has history of congestive heart failure and obstructive sleep apnea. Patient apparently had mental status changes and weakness for which she was transferred back to the hospital emergency room. Patient was lethargic with garbled speech from [facility], [place]. Initial workup in the emergency room reveal low blood pressure 92/60 artery was 136 per minute patient was afebrile with 98% saturation. Patient was more awake alert in the emergency room but continued to have mildly garbled speech. Admitting laboratory data creatinine 1.36, BNP was 3820. Urine had 3+ protein urea and potassium was 3.0. Patient was subsequently started on amiodarone drip to help with the heart rate. CT scan of the head was negative for any acute changes. 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 Subjective; Patient was examined at the bedside. Patient sitting the chair and appears comfortable except for moderately severe right leg pain. Moderate swelling of the right leg is noted. Review of Systems Review of Systems: Twelve point review of system was completed. Pertinent positive and negative findings per HPI. Constitutional negative of fever or weight loss. Head and neck negative. Cardiovascular negative for chest pain or shortness of breath. Pulmonary system negative for wheezing or rhonchi. Right leg positive for swelling in moderate to severe pain. Exam Narrative: Patient was examined at the bedside. Patient is sitting in the chair and her complaints of right leg pain. Breathing is stable. Patient is more awake and alert today answering questions. Head and neck examination is unremarkable. Neck is supple. There is no JVD or carotid bruit. Lungs reveal decreased air entry bilaterally. Heart sounds reveal normal S1-S2. Her rhythm is irregularly irregular. Abdomen is obese without hepatosplenomegaly. Bowel sounds present throughout Extremities revealed swelling of the right leg os patient did cough up with localized tenderness. There is no ecchymosis or bluish discoloration. Neurological examination is intact. Objective Data Vital Signs Vital Signs: Vital Signs - 24 hr 04/23/25 12:00 04/23/25 12:00 04/23/25 12:00 Temperature 36.6 C Pulse Rate 93 82 93 Respiratory Rate 22 H Blood Pressure 130/75 130/75 Pulse Oximetry 95 Oxygen Delivery 04/23/25 14:00 04/23/25 14:00 04/23/25 14:00 Temperature Pulse Rate 91 83 87 Respiratory Rate Blood Pressure 129/87 129/87 Pulse Oximetry Oxygen Delivery 04/23/25 15:31 04/23/25 16:00 04/23/25 16:00 Temperature 36.9 C Pulse Rate 93 88 85 Respiratory Rate 20 Blood Pressure 125/70 133/88 Pulse Oximetry 94 Oxygen Delivery 04/23/25 16:00 04/23/25 18:00 04/23/25 18:00 Temperature Pulse Rate 85 84 Respiratory Rate Blood Pressure 133/88 128/67 128/67 Pulse Oximetry Oxygen Delivery 04/23/25 18:00 04/23/25 20:00 04/23/25 20:00 Temperature 36.8 C Pulse Rate 72 84 88 Respiratory Rate 20 Blood Pressure 142/81 H 142/81 H Pulse Oximetry 97 Oxygen Delivery 04/23/25 20:00 04/23/25 22:00 04/23/25 22:00 Temperature Pulse Rate 72 90 92 Respiratory Rate Blood Pressure 144/81 H Pulse Oximetry Oxygen Delivery 04/23/25 22:00 04/23/25 23:23 04/24/25 00:00 Temperature 36.7 C 36.7 C Pulse Rate 83 78 Respiratory Rate 18 20 Blood Pressure 144/81 H 151/66 H Pulse Oximetry 97 97 Oxygen Delivery Room Air 04/24/25 00:00 04/24/25 00:00 04/24/25 02:00 Temperature Pulse Rate 81 86 90 Respiratory Rate Blood Pressure 151/66 H Pulse Oximetry Oxygen Delivery 04/24/25 02:00 04/24/25 02:00 04/24/25 02:06 Temperature Pulse Rate 85 85 Respiratory Rate Blood Pressure 133/76 133/76 133/76 Pulse Oximetry Oxygen Delivery 04/24/25 02:06 04/24/25 03:28 04/24/25 04:00 Temperature 36.4 C Pulse Rate 85 78 Respiratory Rate 18 Blood Pressure 133/76 140/72 Pulse Oximetry 97 Oxygen Delivery Room Air 04/24/25 04:00 04/24/25 04:00 04/24/25 06:00 Temperature Pulse Rate 88 81 76 Respiratory Rate Blood Pressure 140/72 Pulse Oximetry Oxygen Delivery 04/24/25 06:05 04/24/25 08:00 04/24/25 09:05 Temperature 37.1 C Pulse Rate 75 81 Respiratory Rate 16 Blood Pressure 126/87 139/73 Pulse Oximetry 98 Oxygen Delivery Room Air 04/24/25 09:21 04/24/25 10:00 Temperature Pulse Rate 82 Respiratory Rate Blood Pressure 149/116 H Pulse Oximetry Oxygen Delivery Room Air Intake/Output Intake/Output: Intake & Output 04/21/25 04/22/25 04/23/25 04/24/25 23:59 22:59 23:59 23:59 Intake Total 3234.6 3031.4 1812.4 1219.7 Output Total 1200 1100 1600 475 Balance 2034.6 1931.4 212.4 744.7 Meds/Results Medications: Active Medications Generic Name Dose Route Start Last Admin Trade Name Freq PRN Reason Stop Dose Admin Acetaminophen 650 mg 04/19/25 21:40 04/24/25 10:20 Acetaminophen 325 Mg Tablet PO 650 mg Q4H PRN Administration Mild Pain (1-3) or Fever Amoxicillin/Clavulanate Potassium 1 tablet 04/23/25 21:00 04/24/25 08:58 Amoxicillin/Clavulanate K 875-125 Mg Tab PO 04/26/25 21:01 1 tablet Q12HR ANGELICA Administration Doxycycline Hyclate 100 mg 04/23/25 21:00 04/24/25 08:59 Doxycycline Hyclate 100 Mg Tablet PO 04/26/25 21:01 100 mg Q12HR ANGELICA Administration Enoxaparin Sodium 115 mg 04/23/25 09:00 04/24/25 08:59 Enoxaparin 120 Mg/0.8 Ml Syringe SUB-Q 115 mg Q12H ANGELICA Administration Amiodarone HCl/Dextrose 360 mg in 200 mls @ 16.667 mls/hr 04/20/25 04:44 04/24/25 06:05 Nexterone 360 Mg/D5w 200 Ml IV CONT 0.5 mg/min .Q12H ANGELICA 16.67 mls/hr 0.5 MG/MIN Infusion Dextrose/Sodium Chloride 1,000 mls @ 75 mls/hr 04/20/25 15:50 04/24/25 01:08 Dextrose 5% Sodium Chloride 0.9% IV CONT 75 mls/hr .[id number] ANGELICA Administration Ondansetron HCl 4 mg 04/19/25 21:40 Ondansetron Inj 4 Mg/2 Ml Vial IV PUSH Q4H PRN Nausea Rivastigmine 1 patch 04/20/25 09:00 04/24/25 09:00 Rivastigmine Tartrate 4.6 Mg Patch TRANSDERM 1 patch DAILY ANGELICA Administration Radiology Results: ITS Impressions Chest X-Ray 04/19/25 18:25 IMPRESSION: 1. Suspect left perihilar airspace disease. Can consider PA and lateral films with deep inspiration. Head CT 04/19/25 20:34 IMPRESSION: No acute intracranial hemorrhage or extra axial fluid collections. All CT scans at this facility are performed using low dose modulation techniques as appropriate to perform exam including the following: automated exposure control; use of iterative reconstruction technique; adjustment of the mA and/or kV according to patient size (this includes techniques or standardized protocols for targeted exams where dose is matched to indication/reason for exam). Chest/Abdomen/Pelvis CTA 04/19/25 20:37 IMPRESSION: CHEST- 1. Mildly enlarged lymph nodes left axilla. Malignancy not excluded. 2. 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 Recommend surgical consultation. 3. No PE or other acute cardiopulmonary findings. ABDOMEN/PELVIS- 1. No acute abdominopelvic findings. Modified Barium Swallow 04/23/25 10:18 IMPRESSION: Pharyngeal dysphagia with laryngeal penetration without aspiration. Please correlate with speech pathologist findings and specific feeding recommendations. Labs Labs: Laboratory Results - last 24 hr 04/23/25 04/23/25 04/23/25 12:03 13:55 18:07 WBC RBC Hgb Hct MCV MCH MCHC RDW Plt Count MPV Immature Gran % (Auto) Neut % (Auto) Lymph % (Auto) Churchill % (Auto) Eos % (Auto) Baso % (Auto) Lymph # (Auto) Churchill # (Auto) Eos # (Auto) Baso # (Auto) Abs Immat Gran (auto) Absolute Neuts (auto) Absolute Nucleated RBC Nucleated RBC % Sodium Potassium 3.1 L Chloride Carbon Dioxide Anion Gap BUN Creatinine Estim Creat Clear Calc Estimated GFR Glucose POC Capillary Glucose 116 H 136 H Lactic Acid Calcium Magnesium 1.9 Iron 34 L TIBC 240 L % Saturation 14 L Ferritin 334.00 H Total Bilirubin AST ALT Alkaline Phosphatase Lactate Dehydrogenase 600 H Total Protein Albumin Vitamin B12 507.0 Folate 6.5 04/23/25 04/24/25 04/24/25 23:50 03:59 06:02 WBC 7.9 RBC 3.26 L Hgb 8.9 L Hct 28.9 L MCV 88.7 MCH 27.3 MCHC 30.8 L RDW 15.9 H Plt Count 237 MPV 9.6 Immature Gran % (Auto) 3.8 H Neut % (Auto) 73.5 H Lymph % (Auto) 9.6 L Churchill % (Auto) 7.6 Eos % (Auto) 4.9 H Baso % (Auto) 0.6 Lymph # (Auto) 0.76 L Churchill # (Auto) 0.6 Eos # (Auto) 0.4 H Baso # (Auto) 0.1 Abs Immat Gran (auto) 0.30 H Absolute Neuts (auto) 5.8 Absolute Nucleated RBC 0.000 Nucleated RBC % 0.0 Sodium 145 Potassium 2.7 L* Chloride 118 H Carbon Dioxide 23 Anion Gap 4 BUN 7 L Creatinine 0.95 Estim Creat Clear Calc 74 Estimated GFR > 60 Glucose 127 H POC Capillary Glucose 137 H 143 H Lactic Acid 0.9 Calcium 7.6 L Magnesium 2.1 Iron TIBC % Saturation Ferritin Total Bilirubin 0.5 AST 66 H ALT 56 H Alkaline Phosphatase 91 Lactate Dehydrogenase Total Protein 5.3 L Albumin 2.5 L Vitamin B12 Folate
[2025-04-24] MEDS: METOPROLOL SUCCINATE EXT REL 50 MG TABCR PO (12:42)
[2025-04-24] MEDS: AMIODARONE HCL 200 MG TABLET 400 MG PO (17:01)
--- NOTE | 2025-04-24 19:00 | PM.IMPN ---
Progress Note: A&P Assessment and Plan (1) New onset a-fib: Code(s): I48.91 - Unspecified atrial fibrillation Status: Acute Assessment and Plan: - new onset of AFib. -ECHO EF 60-65% and diastolic dysfunction indeterminate -the patient has already been on Lovenox, currently held due to hematoma -Isai Vasc score is 5. cardiology recommends IV amiodarone with transition to oral (2) Congestive heart failure: Qualifiers: Heart failure type: combined systolic and diastolic Heart failure chronicity: chronic Qualified Code(s): I50.42 - Chronic combined systolic (congestive) and diastolic (congestive) heart failure Code(s): I50.9 - Heart failure, unspecified Status: Acute Assessment and Plan: ECHO showed EF 60-65%, diastolic dysfunction indeterminate -his Entresto has been on hold at this time as he is not awake enough to take p.o. medications. -resume spironolactone when patient is able to take p.o. well -troponin is 0.050 which could be elevated from heart failure or from the AFib RVR. Continue to monitor troponins. demand ischemia 04/21/2025 (3) HTN (hypertension): Qualifiers: Hypertension type: essential hypertension Qualified Code(s): I10 - Essential (primary) hypertension Code(s): I10 - Essential (primary) hypertension Status: Acute Assessment and Plan: -the patient is currently on amiodarone. -Entresto is on hold at this time -his current blood pressure is 103/54. (4) Mixed hyperlipidemia: Code(s): E78.2 - Mixed hyperlipidemia Status: Acute Assessment and Plan: -patient is not awake enough to take p.o. medication at this time. Resume home medication of rosuvastatin when able. (5) History of deep vein thrombosis: Code(s): Z86.718 - Personal history of other venous thrombosis and embolism Status: Acute Assessment and Plan: -off anticoagulation due to acute hematoma (6) Hodgkin's lymphoma, adult: Code(s): C81.90 - Hodgkin lymphoma, unspecified, unspecified site Status: Acute Assessment and Plan: -Hematology-Oncology consultation greatly appreciated. His CT scan does show slightly enlarged axillary lymph node. Malignancy not excluded. (7) Leukocytosis: Code(s): D72.829 - Elevated white blood cell count, unspecified Status: Acute Assessment and Plan: -his white count is up to 21.6. -blood cultures are pending -the patient was empirically started on cefepime and vancomycin. -hematology/oncology has been consulted as well. -daily CBCs resolved (8) JONAH (obstructive sleep apnea): Code(s): G47.33 - Obstructive sleep apnea (adult) (pediatric) Status: Acute Assessment and Plan: -home settings for CPAP/BiPAP (9) Hematoma of right lower extremity: Code(s): S80.11XA - Contusion of right lower leg, initial encounter Status: Acute Assessment and Plan: Groin hematoma likely due to anticoagulation without concern for compartment syndrome per surgery. Surgery discussed with Hematology in a group for IVC filter placement which was discussed with family. Anticoagulation has been discontinued given this hematoma. IVC filter will be placed within 1-2 days. (10) Thoracic aortic aneurysm without rupture: Qualifiers: Thoracic aorta location: ascending aorta Qualified Code(s): I71.21 - Aneurysm of the ascending aorta, without rupture Code(s): I71.2 - Thoracic aortic aneurysm, without rupture Status: Acute Assessment and Plan: 5.8 cm aortic aneurysm on imaging, patient is aware of this and does not wish to pursue operative management at this time given significant risk. He is aware of risks of not operating. Family/POA is on board. Plan DVT prophylaxis on hold due to active bleeding Subjective Date/time seen: 04/24/25 19:00 Review of Systems Review of Systems: ROS unobtainable: Yes unobtainable due to medical condition and unobtainable due to mental status Constitutional: Constitutional: Reports as per HPI Eyes: Eyes: Reports as per HPI and Reports no additional eye complaints ENT: Reports Normal hearing present Cardiovascular: Cardiovascular: Reports no additional cardiovascular complaints Respiratory: Respiratory: Reports as per HPI Gastrointestinal: Gastrointestinal: Reports as per HPI and Reports no additional gastrointestinal complaints Musculoskeletal: Musculoskeletal: Reports no additional musculoskeletal complaints Integumentary/Breasts: Skin/Breast: Reports system reviewed and no additional complaints, except as docu Neurologic: Reports system reviewed and no additional complaints, except as documented and Reports Normal hearing present Psychiatric: Psychiatric: Reports no additional psychiatric complaints and Reports as per HPI Hematologic/Lymphatic: Hematologic/Lymphatic: Reports no additional hematologic/lymphatic complaints Allergic/Immunologic: Allergic/Immunologic: Reports no additional allergic/immunologic complaints Exam Const: General: cooperative, no acute distress, well developed, awake, Physically active, average body habitus and well nourished Nutritional Appearance: average body habitus and well nourished Orientation/consciousness: oriented to person HENMT: Head: normal to inspection, No palpable skull fracture present and normocephalic Eyes: General: appearance normal, both eyes and all related structures Alignment and Position: alignment normal Periorbital: periorbital findings normal Eyelids: eyelids normal Conjunctivae: conjunctivae normal Sclera: sclerae normal Cornea: corneas normal Pupils: Equal, round and reactive pupils present and Pupil accommodation reflex normal EOM: EOMs intact bilaterally Neck: Neck: normal visual inspection Chest: Chest palpation & inspection: normal inspection of the chest Resp: Effort & Inspection: normal respiratory effort Auscultation: clear to auscultation bilaterally Cardio: Palpation: normal PMI Rate: regular rate Rhythm: regular rhythm Heart sounds: S1 normal heart sound present and S2 normal heart sound present Peripheral pulses: Peripheral pulses 2+ throughout GI: Inspection: normal to inspection Auscultation: normal bowel sounds Rectal Exam: deferred Back/Spine/Pelvis: Thoracic/Lumbar Spine: thoracic and lumbar spine normal to inspection Skin: General skin exam: normal color Lesions: no lesions Rashes: no rashes Trauma: no lacerations or abrasions Wounds: no wounds Hair: normal Nails: normal Neuro: General: oriented to person Cranial nerves: Yes Equal, round and reactive pupils present and Yes Normal hearing present Extrem: General: normal to inspection Right upper extremity: normal to inspection and shoulder/upper arm Left upper extremity: normal to inspection and shoulder/upper arm Right lower extremity: normal to inspection Left lower extremity: normal to inspection Psych: Appearance: grossly normal Mental Status: mental status grossly normal Objective Data Vital Signs Vital Signs: Vital Signs - 24 hr 04/23/25 20:00 04/23/25 20:00 04/23/25 20:00 Temperature 98.3 F Pulse Rate 84 88 72 Respiratory Rate 20 Blood Pressure 142/81 H 142/81 H Pulse Oximetry 97 Oxygen Delivery 04/23/25 22:00 04/23/25 22:00 04/23/25 22:00 Temperature 98.0 F Pulse Rate 90 92 83 Respiratory Rate 18 Blood Pressure 144/81 H 144/81 H Pulse Oximetry 97 Oxygen Delivery 04/23/25 23:23 04/24/25 00:00 04/24/25 00:00 Temperature 98.1 F Pulse Rate 78 81 Respiratory Rate 20 Blood Pressure 151/66 H Pulse Oximetry 97 Oxygen Delivery Room Air 04/24/25 00:00 04/24/25 02:00 04/24/25 02:00 Temperature Pulse Rate 86 90 Respiratory Rate Blood Pressure 151/66 H 133/76 Pulse Oximetry Oxygen Delivery 04/24/25 02:00 04/24/25 02:06 04/24/25 02:06 Temperature Pulse Rate 85 85 85 Respiratory Rate Blood Pressure 133/76 133/76 133/76 Pulse Oximetry Oxygen Delivery 04/24/25 03:28 04/24/25 04:00 04/24/25 04:00 Temperature 97.6 F Pulse Rate 78 88 Respiratory Rate 18 Blood Pressure 140/72 140/72 Pulse Oximetry 97 Oxygen Delivery Room Air 04/24/25 04:00 04/24/25 06:00 04/24/25 06:05 Temperature Pulse Rate 81 76 75 Respiratory Rate Blood Pressure 126/87 Pulse Oximetry Oxygen Delivery 04/24/25 08:00 04/24/25 08:00 04/24/25 08:00 Temperature 98.7 F Pulse Rate 81 81 81 Respiratory Rate 16 Blood Pressure 139/73 139/73 Pulse Oximetry 98 Oxygen Delivery 04/24/25 09:05 04/24/25 09:21 04/24/25 10:00 Temperature Pulse Rate 82 Respiratory Rate Blood Pressure 149/116 H Pulse Oximetry Oxygen Delivery Room Air Room Air 04/24/25 10:00 04/24/25 10:00 04/24/25 12:00 Temperature Pulse Rate 82 88 84 Respiratory Rate Blood Pressure 149/116 H Pulse Oximetry Oxygen Delivery 04/24/25 12:00 04/24/25 12:42 04/24/25 12:47 Temperature 98.0 F Pulse Rate 88 81 Respiratory Rate 44 H 18 Blood Pressure 101/78 Pulse Oximetry 97 Oxygen Delivery 04/24/25 14:00 04/24/25 14:00 04/24/25 16:00 Temperature 97.6 F 98.1 F Pulse Rate 65 79 77 Respiratory Rate 16 16 Blood Pressure 124/68 118/61 Pulse Oximetry 96 98 Oxygen Delivery 04/24/25 16:00 04/24/25 16:00 04/24/25 17:56 Temperature Pulse Rate 62 71 Respiratory Rate Blood Pressure Pulse Oximetry Oxygen Delivery Room Air Intake/Output Intake/Output: Intake & Output 04/21/25 04/22/25 04/23/25 04/24/25 23:59 22:59 23:59 23:59 Intake Total 3234.6 3031.4 1812.4 1285.0 Output Total 1200 1100 1600 475 Balance 2034.6 1931.4 212.4 810.0 Meds/Results Medications: Active Medications Generic Name Dose Route Start Last Admin Trade Name Freq PRN Reason Stop Dose Admin Acetaminophen 650 mg 04/19/25 21:40 04/24/25 10:20 Acetaminophen 325 Mg Tablet PO 650 mg Q4H PRN Administration Mild Pain (1-3) or Fever Amiodarone HCl 400 mg 04/24/25 17:00 04/24/25 17:01 Amiodarone Hcl 200 Mg Tablet PO 05/01/25 09:01 400 mg BID ANGELICA Administration Amiodarone HCl 200 mg 05/02/25 08:00 Amiodarone Hcl 200 Mg Tablet PO DAILY@0800 ANGELICA Amoxicillin/Clavulanate Potassium 1 tablet 04/23/25 21:00 04/24/25 08:58 Amoxicillin/Clavulanate K 875-125 Mg Tab PO 04/26/25 21:01 1 tablet Q12HR ANGELICA Administration Doxycycline Hyclate 100 mg 04/23/25 21:00 04/24/25 08:59 Doxycycline Hyclate 100 Mg Tablet PO 04/26/25 21:01 100 mg Q12HR ANGELICA Administration Enoxaparin Sodium 115 mg 04/23/25 09:00 04/24/25 08:59 Enoxaparin 120 Mg/0.8 Ml Syringe SUB-Q 115 mg Q12H ANGELICA Administration Furosemide 40 mg 04/25/25 09:00 Furosemide 40 Mg Tablet PO DAILY ANGELICA Dextrose/Sodium Chloride 1,000 mls @ 75 mls/hr 04/20/25 15:50 04/24/25 01:08 Dextrose 5% Sodium Chloride 0.9% IV CONT 75 mls/hr .[id number] ANGELICA Administration Metoprolol Succinate 50 mg 04/24/25 12:15 04/24/25 12:42 Metoprolol Succinate Ext Rel 50 Mg Tabcr PO 50 mg QAM ANGELICA Administration Ondansetron HCl 4 mg 04/19/25 21:40 Ondansetron Inj 4 Mg/2 Ml Vial IV PUSH Q4H PRN Nausea Rivastigmine 1 patch 04/20/25 09:00 04/24/25 09:00 Rivastigmine Tartrate 4.6 Mg Patch TRANSDERM 1 patch DAILY ANGELICA Administration Spironolactone 25 mg 04/25/25 09:00 Spironolactone 25 Mg Tablet PO QAM [facility] Radiology Results: ITS Impressions Chest X-Ray 04/19/25 18:25 IMPRESSION: 1. Suspect left perihilar airspace disease. Can consider PA and lateral films with deep inspiration. Head CT 04/19/25 20:34 IMPRESSION: No acute intracranial hemorrhage or extra axial fluid collections. All CT scans at this facility are performed using low dose modulation techniques as appropriate to perform exam including the following: automated exposure control; use of iterative reconstruction technique; adjustment of the mA and/or kV according to patient size (this includes techniques or standardized protocols for targeted exams where dose is matched to indication/reason for exam). Chest/Abdomen/Pelvis CTA 04/19/25 20:37 IMPRESSION: CHEST- 1. Mildly enlarged lymph nodes left axilla. Malignancy not excluded. 2. 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 Recommend surgical consultation. 3. No PE or other acute cardiopulmonary findings. ABDOMEN/PELVIS- 1. No acute abdominopelvic findings. Modified Barium Swallow 04/23/25 10:18 IMPRESSION: Pharyngeal dysphagia with laryngeal penetration without aspiration. Please correlate with speech pathologist findings and specific feeding recommendations. Lower Extremity CT 04/24/25 13:03 IMPRESSION: 1. No significant change in size of a 22.6 x 11.9 x 5.2 cm complex fluid collection in the posterior compartment of the right calf most likely an evolving hematoma. Differential would include abscess in the appropriate clinical setting. 2. Mild patellofemoral osteoarthritis with persistent nonspecific small right knee joint effusion. Labs Labs: Laboratory Results - last 24 hr 04/23/25 04/23/25 04/24/25 13:55 23:50 03:59 WBC 7.9 RBC 3.26 L Hgb 8.9 L Hct 28.9 L MCV 88.7 MCH 27.3 MCHC 30.8 L RDW 15.9 H Plt Count 237 MPV 9.6 Immature Gran % (Auto) 3.8 H Neut % (Auto) 73.5 H Lymph % (Auto) 9.6 L [place] % (Auto) 7.6 Eos % (Auto) 4.9 H Baso % (Auto) 0.6 Lymph # (Auto) 0.76 L [place] # (Auto) 0.6 Eos # (Auto) 0.4 H Baso # (Auto) 0.1 Abs Immat Gran (auto) 0.30 H Absolute Neuts (auto) 5.8 Absolute Nucleated RBC 0.000 Nucleated RBC % 0.0 Sodium 145 Potassium 2.7 L* Chloride 118 H Carbon Dioxide 23 Anion Gap 4 BUN 7 L Creatinine 0.95 Estim Creat Clear Calc 74 Estimated GFR > 60 Glucose 127 H POC Capillary Glucose 137 H Lactic Acid 0.9 Calcium 7.6 L Magnesium 2.1 Iron 34 L TIBC 240 L % Saturation 14 L Ferritin 334.00 H Total Bilirubin 0.5 AST 66 H ALT 56 H Alkaline Phosphatase 91 Lactate Dehydrogenase 600 H Total Protein 5.3 L Albumin 2.5 L Vitamin B12 507.0 Folate 6.5 04/24/25 04/24/25 04/24/25 06:02 11:28 18:51 WBC RBC Hgb Hct MCV MCH MCHC RDW Plt Count MPV Immature Gran % (Auto) Neut % (Auto) Lymph % (Auto) [place] % (Auto) Eos % (Auto) Baso % (Auto) Lymph # (Auto) [place] # (Auto) Eos # (Auto) Baso # (Auto) Abs Immat Gran (auto) Absolute Neuts (auto) Absolute Nucleated RBC Nucleated RBC % Sodium Potassium Chloride Carbon Dioxide Anion Gap BUN Creatinine Estim Creat Clear Calc Estimated GFR Glucose POC Capillary Glucose 143 H 123 H 121 H Lactic Acid Calcium Magnesium Iron TIBC % Saturation Ferritin Total Bilirubin AST ALT Alkaline Phosphatase Lactate Dehydrogenase Total Protein Albumin Vitamin B12 Folate Hospitalist MIPS Advance Care Plan I have confirmed that the patient's Advanced Care Plan is present, code status is documented, or surrogate decision maker is listed in patient medical record.: Yes Medication Reconciliation I have utilized all available resources to obtain, update and review the patients current medications (includes all prescriptions, OTC, herbals, cannabis, and nutritional supplements).: Yes
[2025-04-25] VITALS (23 sets, daily range): BP systolic 105–152; BP diastolic 45–83; PULSE 47–81; RESP 15–22; TEMP 36.3–37; O2SAT 96–100
[2025-04-25 04:45] LABS: Hematocrit 30.2 % (42.0-52.0); Hemoglobin 9.0 g/dL (14.0-18.0); Immature Granulocyte Percent A 5.3 % (0-0.5); Lymphocytes Absolute Auto 0.76 K/mm3 (0.9-3.2); Mean Corpuscular HGB Conc 29.8 g/dl (32-36); Mean Corpuscular Hemoglobin 26.7 pg (26-34); Mean Corpuscular Volume 89.6 fl (80-100); Nucleated Red Blood Cells Absolute Auto 0.000 K/mm3 (0.0-0.012); Nucleated Red Blood Cells Perc 0.0 % (0.0-0.2); Platelet Count Result 229 k/mm3 (150-375); Red Blood Count 3.37 M/mm3 (4.6-6.20); White Blood Count 8.5 K/mm3 (4.5-10.0)
[2025-04-25 05:10] LABS: Alanine Aminotransferase 43 U/L (6-50); Albumin Level 2.6 g/dL (3.5-5.1); Alkaline Phosphatase 84 U/L (38-126); Anion Gap 4 mmol/L (4-12); Aspartate Amino Transferase 39 U/L (17-59); Bilirubin,Total 0.6 mg/dL (0.2-1.3); Blood Urea Nitrogen 8 mg/dL (9-20); Calcium 7.5 mg/dL (8.4-10.2); Carbon Dioxide 22 mmol/L (22-30); Chloride 117 mmol/L (98-107); Estimated CRCL calculation 74 ml/min; Estimated Glomerular Filt Rate > 60; Glucose 113 mg/dL (65-110); Potassium 2.7 mmol/L (3.4-5.0); Sodium 143 mmol/L (137-145); Total Protein 5.4 g/dL (6.3-8.2)
[2025-04-25] MEDS: POTASSIUM CHLORIDE INJ 40 MEQ in SODIUM CHLORIDE 0.9% IV 500 ML 130 MEQ IVPB ×2 (06:00→17:15)
[2025-04-25] MEDS: AMIODARONE HCL 200 MG TABLET 400 MG PO ×2 (08:34→16:25)
[2025-04-25] MEDS: DOXYCYCLINE HYCLATE 100 MG TABLET PO ×2 (08:35→20:27)
[2025-04-25] MEDS: METOPROLOL SUCCINATE EXT REL 50 MG TABCR PO (08:35)
[2025-04-25] MEDS: FUROSEMIDE 40 MG TABLET PO (08:35)
[2025-04-25] MEDS: SPIRONOLACTONE 25 MG TABLET PO (08:35)
[2025-04-25] MEDS: RIVASTIGMINE TARTRATE 4.6 MG PATCH 1 PATCH TRANSDERM (08:35)
--- NOTE | 2025-04-25 13:24 | WPDHPUPDATE1 ---
History and Physical Update Update Date/Time: 04/25/25 13:24 History and Physical has been reviewed, including an updated exam of the patient. There are NO changes in the patient's condition. Risks, benefits, and alternatives have been discussed and questions answered. Patient agrees to proceed with procedure.
[2025-04-25 13:28] LABS: Potassium 3.0 mmol/L (3.4-5.0); Sodium 143 mmol/L (137-145)
[2025-04-25 13:29] LABS: Anion Gap 2 mmol/L (4-12); Blood Urea Nitrogen 7 mg/dL (9-20); Calcium 7.6 mg/dL (8.4-10.2); Carbon Dioxide 23 mmol/L (22-30); Chloride 118 mmol/L (98-107); Estimated CRCL calculation 76 ml/min; Estimated Glomerular Filt Rate > 60; Glucose 104 mg/dL (65-110)
--- NOTE | 2025-04-25 14:24 | W.PM.PROC2 ---
Procedure Note - Detailed Date of Procedure 04/25/25 Pre-op Diagnosis DVT, anemia, right leg hematoma Post-op Diagnosis Same Procedure Performed IVC filter placement using ultrasound and fluoroscopic guidance Surgeon Kiran Man DO [employer] Glenn Padilla DO Anesthesia Local (1% Lidocaine) Indications This is a 74-year-old man who was found to have an extensive DVT about 2 months ago. He then subsequently was placed on anticoagulation and the eventually developed a right calf hematoma. There was concern for compartment syndrome and he was transferred to [facility] for further treatment. He never required a fasciotomy or drainage of this hematoma and has recovered well from that. He returned with worsening anemia and Hematology was consulted and recommended holding the anticoagulation and placement of a IVC filter. Findings Sinosite ultrasound was used to identify the right femoral vein. This was visualized as a compressible vessel just medial to the pulsatile femoral artery. The 18 gauge introducer needle was advanced under ultrasound guidance. Fluoroscopy was then used to guide advancement of the guidewire followed by the dilator and sheath. The sheath was meeting resistance while advancing up the right iliac vein. I attempted dilating the tract 1st with just the dilator which was advancing smoothly, but the sheath would not advance without meeting resistance. I then chose to abort placement on the right side and moved to the left groin region. The SonoSite ultrasound again was used to identify the left femoral vein. The 18 gauge introducer needle was advanced under ultrasound guidance directly into the lumen of the left femoral vein. The guidewire, dilator and sheath advanced smoothly under fluoroscopic guidance on the side. Final fluoroscopic images demonstrated the filter in proper position at the level of the L3 vertebral body. Description of Procedure Patient was brought back to manufacturing lab technician suite. He was placed supine manufacturing lab technician table. Time-out was done to confirm patient procedure. His bilateral groin region was prepped and draped in sterile fashion using chlorhexidine prep. SonoSite ultrasound was used to identify the right femoral vein. This was visualized as a compressible vessel just medial to the right femoral artery. 1% lidocaine was infiltrated directly over this area. An 18 gauge introducer needle was then advanced under ultrasound guidance directly into the lumen of the right femoral vein. Dark nonpulsatile blood was aspirated. A 0.035 in guidewire was advanced through the needle under fluoroscopic guidance. The guidewire advanced smoothly and was visualized advancing up into the inferior vena cava. The needle was withdrawn leaving the guidewire in place. A small dora incision was made at the insertion site using an 11 blade scalpel. The 8French dilator and sheath were then advanced over the guidewire under fluoroscopic guidance. I was meeting resistance about 10 cm up the vessel and could not advance the sheath any further. I then removed the dilator sheath and attempted initially dilating the vessel using a 7 [place] dilator. I still could not advance the sheath back over the guidewire without meeting resistance in the same region. I then chose to abort placement on this side and removed the dilator, sheath, and guidewire. Pressure was applied for about 5 minutes and I repositioned to the left groin region. SonoSite ultrasound was used to identify the left femoral vein. 1% lidocaine with epinephrine was infiltrated directly over this region. An 18 gauge introducer needle was then advanced under ultrasound guidance directly into the lumen of the left femoral vein. Dark nonpulsatile blood was aspirated. The 0.035 in guidewire was then advanced through the needle under fluoroscopic guidance. The guidewire advanced smoothly into the inferior vena cava. The small incision was and then made at the insertion site using 11 blade scalpel and the 8 [place] dilator and sheath were advanced over the guidewire under fluoroscopic guidance. The sheath was advanced up to the L3 vertebral body, and then once the sheath was at the upper portion of the L3 vertebral body, the dilator and guidewire were removed. The IVC filter was then inserted into the end of the sheath and then the plunger was used to carefully advanced the filter up the length of the sheath. Once the filter was visualized under fluoroscopy at the tip of the sheath, the sheath was slowly withdrawn to allow the filter to deploy. Once the filter was completely expanded, the sheath was removed and pressure was applied at the insertion site. One final fluoroscopic image was obtained visualizing the IVC filter and proper orientation overlying the L3 vertebral body. After holding pressure for 5 minutes, there is no further blood loss and a sterile dressing was applied. Implants [place] IVC Filter Estimated Blood Loss 2 Urine Output 150 Complications No immediate complications Condition Stable Disposition Floor AM Billing Surgery - Charge Forward: Surgery Billing
--- NOTE | 2025-04-25 14:48 | PM.PNCARD ---
Progress Note: A&P Assessment and Plan (1) New onset a-fib: Code(s): I48.91 - Unspecified atrial fibrillation Status: Acute (2) Pulmonary embolism: Qualifiers: Pulmonary embolism type: single subsegmental (without acute cor pulmonale) Qualified Code(s): I26.93 - Single subsegmental pulmonary embolism without acute cor pulmonale Code(s): I26.99 - Other pulmonary embolism without acute cor pulmonale Status: Acute (3) Cardiomyopathy: Code(s): I42.9 - Cardiomyopathy, unspecified Status: Acute (4) Thoracic aortic aneurysm without rupture: Qualifiers: Thoracic aorta location: ascending aorta Qualified Code(s): I71.21 - Aneurysm of the ascending aorta, without rupture Code(s): I71.2 - Thoracic aortic aneurysm, without rupture Status: Acute (5) Hodgkin's lymphoma, adult: Code(s): C81.90 - Hodgkin lymphoma, unspecified, unspecified site Status: Acute (6) Congestive heart failure: Qualifiers: Heart failure type: combined systolic and diastolic Heart failure chronicity: chronic Qualified Code(s): I50.42 - Chronic combined systolic (congestive) and diastolic (congestive) heart failure Code(s): I50.9 - Heart failure, unspecified Status: Acute (7) Sepsis: Code(s): A41.9 - Sepsis, unspecified organism Status: Acute (8) AMS (altered mental status): Code(s): R41.82 - Altered mental status, unspecified Status: Acute (9) DVT (deep venous thrombosis): Code(s): I82.409 - Acute embolism and thrombosis of unspecified deep veins of unspecified lower extremity Status: Acute Plan Impression: 1. Paroxysmal atrial fibrillation with rapid ventricular response. Currently significant improvement of the heart rate. Currently on oral amiodarone 3 2. Recent diagnosis of DVT involving her right leg. Right leg has swelling and pain which has improved. Follow-up CT scan of the leg did not show worsening of the hematoma. Seen by surgery 3. CT scan of the chest positive for stable ascending aorta aneurysm measuring at 5.8 cm. 4. Large hematoma of the posterior compartment of the right leg without active contrast extravasation on previous CT on 03/19/2025. Bilateral Roman cyst noted. Follow-up CT scan of the leg shows stability without worsening of the hematoma. 5. Morbid obesity. Patient weighs 115.5 kg. 6. Acute mental status changes with garbled speech. Significantly improved. CT scan of the head is negative for any acute intracranial process. Slowly improving. 7. Severe hypokalemia admission at 2.7 now improved to 3.1. Currently potassium is 3.0 8. Elevated proBNP at 3820. Troponin I was 0.05 and remained stable without suggestion for acute coronary syndrome. Recommendations: #. Surgical consult for right leg hematoma and possible need for evacuation. Patient has severe pain in the right leg. Follow-up CT scan of the right leg order stat. #. Currently heart rate 80s 56-62 per minute and blood pressure is 119/50. - patient on oral amiodarone 400 mg p.o. b.i.d. for 7 days followed by 200 mg daily #. Currently blood pressure 139/73 and heart rate is 82 per minute. Echocardiogram shows technically difficult echo with preserved systolic function at 60-65% and atrial fibrillation. #. Current medications reviewed. Currently on full-dose Lovenox, add metoprolol succinate 50 mg daily, Aldactone 25 mg daily and Lasix 40 mg daily for chronic diastolic heart failure. #. Hematology and general surgery consult noted. IVC filter recommended by hematology service due to worsening hemoglobin. However significant concern is therefore continued and increased moderately severe right calf pain-now improved. Follow-up CT scan of the leg shows no worsening of the hematoma. Continue present medical management and increase activity as tolerated. Discontinue full-dose subcu Lovenox when ready per Hematology Service. Subjective Date/time seen: 04/25/25 14:48 Interval history: Review of HPI: 74-year-old gentleman admitted on 04/20/2025 with atrial fibrillation and rapid ventricular response at the her her in 35 per minute. Patient has significant cardiac problems including thoracic aortic aneurysm measuring 5.8 cm, history of pulmonary embolism/DVT on therapeutic Lovenox. Patient was recently diagnosed with DVT on the right leg and subsequently discharged on subQ Lovenox. Patient was subsequently treated at [facility] a right leg DVT and suspicion for compartment syndrome. The surgery was done and patient discharged on anticoagulation. Patient also has history of congestive heart failure and obstructive sleep apnea. Patient apparently had mental status changes and weakness for which she was transferred back to the hospital emergency room. Patient was lethargic with garbled speech from [facility], [place], operated by [facility]. Initial workup in the emergency room reveal low blood pressure 92/60 artery was 136 per minute patient was afebrile with 98% saturation. Patient was more awake alert in the emergency room but continued to have mildly garbled speech. Admitting laboratory data creatinine 1.36, BNP was 3820. Urine had 3+ protein urea and potassium was 3.0. Patient was subsequently started on amiodarone drip to help with the heart rate. CT scan of the head was negative for any acute changes. 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 Subjective; Patient was examined at the bedside. Patient sitting the chair and appears comfortable except for moderately severe right leg pain. Status post placement of IVC filter. Follow-up CT scan of the right leg did not show significant worsening of posterior hematoma on the leg. Review of Systems Review of Systems: Twelve point review of system was completed. Pertinent positive and negative findings per HPI. Constitutional negative of fever or weight loss. Head and neck negative. Cardiovascular negative for chest pain or shortness of breath. Pulmonary system negative for wheezing or rhonchi. Right leg positive for swelling in moderate to severe pain. Exam Narrative: Patient was examined at the bedside. Patient is sitting in the chair and her complaints of right leg pain. Breathing is stable. Patient is more awake and alert today answering questions. Head and neck examination is unremarkable. Neck is supple. There is no JVD or carotid bruit. Lungs reveal decreased air entry bilaterally. Heart sounds reveal normal S1-S2. Her rhythm is irregularly irregular. Abdomen is obese without hepatosplenomegaly. Bowel sounds present throughout Extremities revealed swelling of the right leg os patient did cough up with localized tenderness. There is no ecchymosis or bluish discoloration. Neurological examination is intact. Objective Data Vital Signs Vital Signs: Vital Signs - 24 hr 04/24/25 16:00 04/24/25 16:00 04/24/25 16:00 Temperature 36.7 C Pulse Rate 77 62 Respiratory Rate 16 Blood Pressure 118/61 Pulse Oximetry 98 Oxygen Delivery Room Air 04/24/25 17:56 04/24/25 20:00 04/24/25 20:00 Temperature 36.7 C Pulse Rate 71 84 Respiratory Rate 18 Blood Pressure 118/72 Pulse Oximetry 99 Oxygen Delivery Room Air 04/24/25 20:00 04/24/25 22:00 04/24/25 23:47 Temperature 36.8 C Pulse Rate 79 73 64 Respiratory Rate 16 Blood Pressure 104/49 L Pulse Oximetry 95 Oxygen Delivery 04/25/25 00:00 04/25/25 00:00 04/25/25 02:00 Temperature Pulse Rate 68 63 Respiratory Rate Blood Pressure Pulse Oximetry Oxygen Delivery Room Air 04/25/25 03:22 04/25/25 04:00 04/25/25 04:00 Temperature 37.0 C Pulse Rate 47 L 61 Respiratory Rate 18 Blood Pressure 105/55 L Pulse Oximetry 97 Oxygen Delivery Room Air 04/25/25 06:00 04/25/25 08:00 04/25/25 08:11 Temperature 36.8 C Pulse Rate 56 L 61 60 Respiratory Rate 20 Blood Pressure 120/48 L Pulse Oximetry 100 Oxygen Delivery 04/25/25 08:34 04/25/25 08:35 04/25/25 10:00 Temperature Pulse Rate 73 73 65 Respiratory Rate Blood Pressure Pulse Oximetry Oxygen Delivery 04/25/25 12:00 04/25/25 12:00 Temperature 36.5 C Pulse Rate 56 L 62 Respiratory Rate 20 Blood Pressure 119/50 L Pulse Oximetry 98 Oxygen Delivery Intake/Output Intake/Output: Intake & Output 04/22/25 04/23/25 04/24/25 04/25/25 22:59 23:59 23:59 23:59 Intake Total 3031.4 1812.4 2525.0 50 Output Total 1100 1600 1275 300 Balance 1931.4 212.4 1250.0 -250 Meds/Results Medications: Active Medications Generic Name Dose Route Start Last Admin Trade Name Freq PRN Reason Stop Dose Admin Acetaminophen 650 mg 04/19/25 21:40 04/24/25 20:08 Acetaminophen 325 Mg Tablet PO 650 mg Q4H PRN Administration Mild Pain (1-3) or Fever Amiodarone HCl 400 mg 04/24/25 17:00 04/25/25 08:34 Amiodarone Hcl 200 Mg Tablet PO 05/01/25 09:01 400 mg BID ANGELICA Administration Amiodarone HCl 200 mg 05/02/25 08:00 Amiodarone Hcl 200 Mg Tablet PO DAILY@0800 ANGELICA Amoxicillin/Clavulanate Potassium 1 tablet 04/23/25 21:00 04/25/25 08:35 Amoxicillin/Clavulanate K 875-125 Mg Tab PO 04/26/25 21:01 1 tablet Q12HR ANGELICA Administration Doxycycline Hyclate 100 mg 04/23/25 21:00 04/25/25 08:35 Doxycycline Hyclate 100 Mg Tablet PO 04/26/25 21:01 100 mg Q12HR ANGELICA Administration Furosemide 40 mg 04/25/25 09:00 04/25/25 08:35 Furosemide 40 Mg Tablet PO 40 mg DAILY ANGELICA Administration Dextrose/Sodium Chloride 1,000 mls @ 75 mls/hr 04/20/25 15:50 04/24/25 19:17 Dextrose 5% Sodium Chloride 0.9% IV CONT 75 mls/hr .[id number] ANGELICA Administration Metoprolol Succinate 50 mg 04/24/25 12:15 04/25/25 08:35 Metoprolol Succinate Ext Rel 50 Mg Tabcr PO 50 mg QAM ANGELICA Administration Ondansetron HCl 4 mg 04/19/25 21:40 Ondansetron Inj 4 Mg/2 Ml Vial IV PUSH Q4H PRN Nausea Rivastigmine 1 patch 04/20/25 09:00 04/25/25 08:35 Rivastigmine Tartrate 4.6 Mg Patch TRANSDERM 1 patch DAILY ANGELICA Administration Spironolactone 25 mg 04/25/25 09:00 04/25/25 08:35 Spironolactone 25 Mg Tablet PO 25 mg QAM ANGELICA Administration Radiology Results: ITS Impressions Chest X-Ray 04/19/25 18:25 IMPRESSION: 1. Suspect left perihilar airspace disease. Can consider PA and lateral films with deep inspiration. Head CT 04/19/25 20:34 IMPRESSION: No acute intracranial hemorrhage or extra axial fluid collections. All CT scans at this facility are performed using low dose modulation techniques as appropriate to perform exam including the following: automated exposure control; use of iterative reconstruction technique; adjustment of the mA and/or kV according to patient size (this includes techniques or standardized protocols for targeted exams where dose is matched to indication/reason for exam). Chest/Abdomen/Pelvis CTA 04/19/25 20:37 IMPRESSION: CHEST- 1. Mildly enlarged lymph nodes left axilla. Malignancy not excluded. 2. 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 Recommend surgical consultation. 3. No PE or other acute cardiopulmonary findings. ABDOMEN/PELVIS- 1. No acute abdominopelvic findings. Modified Barium Swallow 04/23/25 10:18 IMPRESSION: Pharyngeal dysphagia with laryngeal penetration without aspiration. Please correlate with speech pathologist findings and specific feeding recommendations. Lower Extremity CT 04/24/25 13:03 IMPRESSION: 1. No significant change in size of a 22.6 x 11.9 x 5.2 cm complex fluid collection in the posterior compartment of the right calf most likely an evolving hematoma. Differential would include abscess in the appropriate clinical setting. 2. Mild patellofemoral osteoarthritis with persistent nonspecific small right knee joint effusion. Labs Labs: Laboratory Results - last 24 hr 04/24/25 04/24/25 04/25/25 18:51 23:37 04:26 WBC 8.5 RBC 3.37 L Hgb 9.0 L Hct 30.2 L MCV 89.6 MCH 26.7 MCHC 29.8 L RDW 16.3 H Plt Count 229 MPV 9.7 Immature Gran % (Auto) 5.3 H Neut % (Auto) 72.3 Lymph % (Auto) 8.9 L [place] % (Auto) 6.8 Eos % (Auto) 5.8 H Baso % (Auto) 0.9 Lymph # (Auto) 0.76 L [place] # (Auto) 0.6 Eos # (Auto) 0.5 H Baso # (Auto) 0.1 Abs Immat Gran (auto) 0.45 H Absolute Neuts (auto) 6.2 Absolute Nucleated RBC 0.000 Nucleated RBC % 0.0 Sodium 143 Potassium 2.7 L* Chloride 117 H Carbon Dioxide 22 Anion Gap 4 BUN 8 L Creatinine 0.93 Estim Creat Clear Calc 74 Estimated GFR > 60 Glucose 113 H POC Capillary Glucose 121 H 120 H Calcium 7.5 L Total Bilirubin 0.6 AST 39 ALT 43 Alkaline Phosphatase 84 Total Protein 5.4 L Albumin 2.6 L 04/25/25 04/25/25 04/25/25 05:36 11:55 12:18 WBC RBC Hgb Hct MCV MCH MCHC RDW Plt Count MPV Immature Gran % (Auto) Neut % (Auto) Lymph % (Auto) [place] % (Auto) Eos % (Auto) Baso % (Auto) Lymph # (Auto) [place] # (Auto) Eos # (Auto) Baso # (Auto) Abs Immat Gran (auto) Absolute Neuts (auto) Absolute Nucleated RBC Nucleated RBC % Sodium 143 Potassium 3.0 L Chloride 118 H Carbon Dioxide 23 Anion Gap 2 L BUN 7 L Creatinine 0.91 Estim Creat Clear Calc 76 Estimated GFR > 60 Glucose 104 POC Capillary Glucose 106 H 111 H Calcium 7.6 L Total Bilirubin AST ALT Alkaline Phosphatase Total Protein Albumin
--- NOTE | 2025-04-25 17:05 | P.PNIM_ITS ---
Progress Note: A&P Assessment and Plan (1) New onset a-fib: Code(s): I48.91 - Unspecified atrial fibrillation Status: Acute Assessment and Plan: - new onset of AFib. -ECHO EF 60-65% and diastolic dysfunction indeterminate -the patient has already been on Lovenox, currently held due to hematoma -Isai Vasc score is 5. cardiology recommends IV amiodarone with transition to oral (2) Congestive heart failure: Qualifiers: Heart failure type: combined systolic and diastolic Heart failure chronicity: chronic Qualified Code(s): I50.42 - Chronic combined systolic (congestive) and diastolic (congestive) heart failure Code(s): I50.9 - Heart failure, unspecified Status: Acute Assessment and Plan: ECHO showed EF 60-65%, diastolic dysfunction indeterminate -his Entresto has been on hold at this time as he is not awake enough to take p.o. medications. -resume spironolactone when patient is able to take p.o. well -troponin is 0.050 which could be elevated from heart failure or from the AFib RVR. Continue to monitor troponins. demand ischemia 04/21/2025 (3) HTN (hypertension): Qualifiers: Hypertension type: essential hypertension Qualified Code(s): I10 - Essential (primary) hypertension Code(s): I10 - Essential (primary) hypertension Status: Acute Assessment and Plan: -the patient is currently on amiodarone. -Entresto is on hold at this time -his current blood pressure is 103/54. (4) Mixed hyperlipidemia: Code(s): E78.2 - Mixed hyperlipidemia Status: Acute Assessment and Plan: -patient is not awake enough to take p.o. medication at this time. Resume home medication of rosuvastatin when able. (5) History of deep vein thrombosis: Code(s): Z86.718 - Personal history of other venous thrombosis and embolism Status: Acute Assessment and Plan: -off anticoagulation due to acute hematoma 04/25: Status post IVC filter placement from the left side by surgery. (6) Hodgkin's lymphoma, adult: Code(s): C81.90 - Hodgkin lymphoma, unspecified, unspecified site Status: Acute Assessment and Plan: -Hematology-Oncology consultation greatly appreciated. His CT scan does show slightly enlarged axillary lymph node. Malignancy not excluded. (7) Leukocytosis: Code(s): D72.829 - Elevated white blood cell count, unspecified Status: Acute Assessment and Plan: -his white count is up to 21.6. -blood cultures are pending -the patient was empirically started on cefepime and vancomycin. -hematology/oncology has been consulted as well. -daily CBCs resolved (8) JONAH (obstructive sleep apnea): Code(s): G47.33 - Obstructive sleep apnea (adult) (pediatric) Status: Acute Assessment and Plan: -home settings for CPAP/BiPAP (9) Hematoma of right lower extremity: Code(s): S80.11XA - Contusion of right lower leg, initial encounter Status: Acute Assessment and Plan: Groin hematoma likely due to anticoagulation without concern for compartment syndrome per surgery. Surgery discussed with Hematology in a group for IVC filter placement which was discussed with family. Anticoagulation has been discontinued given this hematoma. 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 Calf pain has been improving as well. Will reach back out to Hematology regards to resumption of anticoagulation. (10) Thoracic aortic aneurysm without rupture: Qualifiers: Thoracic aorta location: ascending aorta Qualified Code(s): I71.21 - Aneurysm of the ascending aorta, without rupture Code(s): I71.2 - Thoracic aortic aneurysm, without rupture Status: Acute Assessment and Plan: 5.8 cm aortic aneurysm on imaging, patient is aware of this and does not wish to pursue operative management at this time given significant risk. He is aware of risks of not operating. Family/POA is on board. (11) Hypokalemia: Code(s): E87.6 - Hypokalemia Status: Acute Assessment and Plan: Significant hypokalemia this morning at 2.7, aggressive repletion was done, repeat potassium only improved to 3.0. Continued repletion 40 mg IV potassium administered, routine follow-up ordered Plan DVT prophylaxis on hold due to active bleeding Subjective Date/time seen: 04/25/25 17:05 Interval history: This is a 74-year-old male patient who had recently was transferred to [facility] on 03/19/2025 for concerned compartment syndrome with the DVT. No intervention was performed at that time. He is at [facility]. The patient is currently on subQ Lovenox. Has history of sleep apnea and congestive heart failure. The patient was brought to the emergency room for altered mental status and weakness his symptoms have been ongoing for 6 days but recently worsened over the last 2 days. The patient is only orientated to himself and has garbled speech. His family was at the bedside earlier but have left since ER. His white count is noted to be 21.6. His H&H is 12.5 and 40.2 but above his baseline. His BUN is 24 which is near his baseline. And a creatinine of 1.36 with a normal baseline. His troponin is 0.050. His BNP was noted to be 3820. Urine has 3+ protein, 1+ ketones, 2+ blood. His potassium was 3.0. His EKG was read as AFib with RVR. His blood pressure was 105/57. He was started on an amiodarone drip. Head CT was read as no acute intracranial hemorrhage or extra axillo florid collections. Chest x-ray was read as suspect left hip perihilar airspace disease. Consider PA and lateral films with deep inspiration. CTA was read as1. Mildly enlarged lymph nodes left axilla. Malign jhony not excluded. 2. 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 Recommend surgical consultation. 3. No PE or other acute cardiopulmonary findings. The patient was started on cefepime and vancomycin. The patient is being admitted to observation status on the date of service of 04/20/2025 Review of Systems Review of Systems: ROS unobtainable: Yes unobtainable due to medical condition and unobtainable due to mental status Constitutional: Constitutional: Reports as per HPI Eyes: Eyes: Reports as per HPI and Reports no additional eye complaints ENT: Reports Normal hearing present Cardiovascular: Cardiovascular: Reports no additional cardiovascular complaints Respiratory: Respiratory: Reports as per HPI Gastrointestinal: Gastrointestinal: Reports as per HPI and Reports no reddy tional gastrointestinal complaints Musculoskeletal: Musculoskeletal: Reports no additional musculoskeletal complaints Integumentary/Breasts: Skin/Breast: Reports system reviewed and no additional complaints, except as docu Neurologic: Reports system reviewed and no additional complaints, except as documented and Reports Normal hearing present Psychiatric: Psychiatric: Reports no additional psychiatric complaints and Reports as per HPI Hematologic/Lymphatic: Hematologic/Lymphatic: Reports no additional hematologic/lymphatic complaints Allergic/Immunologic: Allergic/Immunologic: Reports no additional allergic/immunologic complaints Exam Const: General: cooperative, no acute distress, well developed, awake, Physically active, average body habitus and well nourished Nutritional Appea lady: well nourished Orientation/consciousness: oriented to person HENMT: Head: normal to inspection, No palpable skull fracture present and normocephalic Eyes: General: appearance normal, both eyes and all related structures Alignment and Position: alignment normal Periorbital: periorbital findings normal Eyelids: eyelids normal Conjunctivae: conjunctivae normal Sclera: sclerae normal Cornea: corneas normal Pupils: Equal, round and reactive pupils present and Pupil accommodation reflex normal EOM: EOMs intact bilaterally Neck: Neck: normal visual inspection Chest: Chest palpation & inspection: normal inspection of the chest Resp: Effort & Inspection: normal respiratory effort Auscultation: clear to auscultation bilaterally Cardio: Palpation: normal PMI Rate: regular rate Rhythm: regular rhythm Heart sounds: S1 normal heart sound present and S2 normal heart sound present Peripheral pulses: Peripheral pulses 2+ throughout GI: Inspection: normal to inspection Auscultation: normal bowel sounds Rectal Exam: deferred Back/Spine/Pelvis: Thoracic/Lumbar Spine: thoracic and lumbar spine normal to inspection Skin: General skin exam: normal color Lesions: no lesions Rashes: no rashes Trauma: no lacerations or abrasions Wounds: no wounds Hair: normal Nails: normal Neuro: General: oriented to person Cranial nerves: Yes Equal, round and reactive pupils present and Yes Normal hearing present Extrem: General: normal to inspection Right upper extremity: normal to inspection and shoulder/upper arm Left upper extremity: normal to inspection and shoulder/upper arm Right lower extremity: normal to inspection Left lower extremity: normal to inspection Psych: Appearance: grossly normal Mental Status: mental status grossly normal Objective Data Vital Signs Vital Signs: Vital Signs - 24 hr 04/24/25 17:56 04/24/25 20:00 04/24/25 20:00 Temperature 98.0 F Pulse Rate 71 84 Respiratory Rate 18 Blood Pressure 118/72 Pulse Oximetry 99 Oxygen Delivery Room Air 04/24/25 20:00 04/24/25 22:00 04/24/25 23:47 Temperature 98.3 F Pulse Rate 79 73 64 Respiratory Rate 16 Blood Pressure 104/49 L Pulse Oximetry 95 Oxygen Delivery 04/25/25 00:00 04/25/25 00:00 04/25/25 02:00 Temperature Pulse Rate 68 63 Respiratory Rate Blood Pressure Pulse Oximetry Oxygen Delivery Room Air 04/25/25 03:22 04/25/25 04:00 04/25/25 04:00 Temperature 98.6 F Pulse Rate 47 L 61 Respiratory Rate 18 Blood Pressure 105/55 L Pulse Oximetry 97 Oxygen Delivery Room Air 04/25/25 06:00 04/25/25 08:00 04/25/25 08:11 Temperature 98.2 F Pulse Rate 56 L 61 60 Respiratory Rate 20 Blood Pressure 120/48 L Pulse Oximetry 100 Oxygen Delivery 04/25/25 08:34 04/25/25 08:35 04/25/25 10:00 Temperature Pulse Rate 73 73 65 Respiratory Rate Blood Pressure Pulse Oximetry Oxygen Delivery 04/25/25 12:00 04/25/25 12:00 04/25/25 14:30 Temperature 97.7 F Pulse Rate 56 L 62 56 L Respiratory Rate 20 15 Blood Pressure 119/50 L 128/53 L Pulse Oximetry 98 98 Oxygen Delivery Room Air 04/25/25 14:45 04/25/25 15:00 04/25/25 15:15 Temperature Pulse Rate 57 L 59 L 59 L Respiratory Rate 16 15 16 Blood Pressure 124/58 L 107/50 L 119/59 L Pulse Oximetry 96 98 100 Oxygen Delivery Room Air Room Air Room Air 04/25/25 15:30 04/25/25 16:25 Temperature Pulse Rate 56 L 62 Respiratory Rate 17 Blood Pressure 129/65 Pulse Oximetry 100 Oxygen Delivery Room Air Intake/Output Intake/Output: Intake & Output 04/22/25 04/23/25 04/24/25 04/25/25 22:59 23:59 23:59 23:59 Intake Total 3031.4 1812.4 2525.0 50 Output Total 1100 1600 1275 300 Balance 1931.4 212.4 1250.0 -250 Meds/Results Medications: Active Medications Generic Name Dose Route Start Last Admin Trade Name Freq PRN Reason Stop Dose Admin Acetaminophen 650 mg 04/19/25 21:40 04/24/25 20:08 Acetaminophen 325 Mg Tablet PO 650 mg Q4H PRN Administration Mild Pain (1-3) or Fever Amiodarone HCl 400 mg 04/24/25 17:00 04/25/25 16:25 Amiodarone Hcl 200 Mg Tablet PO 05/01/25 09:01 400 mg BID ANGELICA Administration Amiodarone HCl 200 mg 05/02/25 08:00 Amiodarone Hcl 200 Mg Tablet PO DAILY@0800 ANGELICA Amoxicillin/Clavulanate Potassium 1 tablet 04/23/25 21:00 04/25/25 08:35 Amoxicillin/Clavulanate K 875-125 Mg Tab PO 04/26/25 21:01 1 tablet Q12HR ANGELICA Administration Doxycycline Hyclate 100 mg 04/23/25 21:00 04/25/25 08:35 Doxycycline Hyclate 100 Mg Tablet PO 04/26/25 21:01 100 mg Q12HR ANGELICA Administration Furosemide 40 mg 04/25/25 09:00 04/25/25 08:35 Furosemide 40 Mg Tablet PO 40 mg DAILY ANGELICA Administration Dextrose/Sodium Chloride 1,000 mls @ 75 mls/hr 04/20/25 15:50 04/24/25 19:17 Dextrose 5% Sodium Chloride 0.9% IV CONT 75 mls/hr .[id number] ANGELICA Administration Potassium Chloride 40 meq/ 520 mls @ 130 mls/hr 04/25/25 17:30 Sodium Chloride IVPB 04/25/25 21:29 ONCE ONE Metoprolol Succinate 50 mg 04/24/25 12:15 04/25/25 08:35 Metoprolol Succinate Ext Rel 50 Mg Tabcr PO 50 mg QAM ANGELICA Administration Ondansetron HCl 4 mg 04/19/25 21:40 Ondansetron Inj 4 Mg/2 Ml Vial IV PUSH Q4H PRN Nausea Rivastigmine 1 patch 04/20/25 09:00 04/25/25 08:35 Rivastigmine Tartrate 4.6 Mg Patch TRANSDERM 1 patch DAILY ANGELICA Administration Spironolactone 25 mg 04/25/25 09:00 04/25/25 08:35 Spironolactone 25 Mg Tablet PO 25 mg QAM ANGELICA Administration Radiology Results: ITS Impressions Chest X-Ray 04/19/25 18:25 IMPRESSION: 1. Suspect left perihilar airspace disease. Can consider PA and lateral films with deep inspiration. Head CT 04/19/25 20:34 IMPRESSION: No acute intracranial hemorrhage or extra axial fluid collections. All CT scans at this facility are performed using low dose modulation techniques as appropriate to perform exam including the following: automated exposure control; use of iterative reconstruction technique; adjustment of the mA and/or kV according to patient size (this includes techniques or standardized protocols for targeted exams where dose is matched to indication/reason for exam). Chest/Abdomen/Pelvis CTA 04/19/25 20:37 IMPRESSION: CHEST- 1. Mildly enlarged lymph nodes left axilla. Malignancy not excluded. 2. 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 Recommend surgical consultation. 3. No PE or other acute cardiopulmonary findings. ABDOMEN/PELVIS- 1. No acute abdominopelvic findings. Modified Barium Swallow 04/23/25 10:18 IMPRESSION: Pharyngeal dysphagia with laryngeal penetration without aspiration. Please correlate with speech pathologist findings and specific feeding recommendations. Lower Extremity CT 04/24/25 13:03 IMPRESSION: 1. No significant change in size of a 22.6 x 11.9 x 5.2 cm complex fluid collection in the posterior compartment of the right calf most likely an evolving hematoma. Differential would include abscess in the appropriate clinical setting. 2. Mild patellofemoral osteoarthritis with persistent nonspecific small right knee joint effusion. Labs Labs: Laboratory Results - last 24 hr 04/24/25 04/24/25 04/25/25 18:51 23:37 04:26 WBC 8.5 RBC 3.37 L Hgb 9.0 L Hct 30.2 L MCV 89.6 MCH 26.7 MCHC 29.8 L RDW 16.3 H Plt Count 229 MPV 9.7 Immature Gran % (Auto) 5.3 H Neut % (Auto) 72.3 Lymph % (Auto) 8.[address] [place] [facility] % (Auto) 6.8 Eos % (Auto) 5.8 H Baso % (Auto) 0.9 Lymph # (Auto) 0.[address] [facility] # (Auto) 0.6 Eos # (Auto) 0.5 H Baso # (Auto) 0.1 Abs Immat Gran (auto) 0.45 H Absolute Neuts (auto) 6.2 Absolute Nucleated RBC 0.000 Nucleated RBC % 0.0 Sodium 143 Potassium 2.7 L* Chloride 117 H Carbon Dioxide 22 Anion Gap 4 BUN 8 L Creatinine 0.93 Estim Creat Clear Calc 74 Estimated GFR > 60 Glucose 113 H POC Capillary Glucose 121 H 120 H Calcium 7.5 L Total Bilirubin 0.6 AST 39 ALT 43 Alkaline Phosphatase 84 Total Protein 5.4 L Albumin 2.6 L 04/25/25 04/25/25 04/25/25 05:36 11:55 12:18 WBC RBC Hgb Hct MCV MCH MCHC RDW Plt Count MPV Immature Gran % (Auto) Neut % (Auto) Lymph % (Auto) [facility] % (Auto) Eos % (Auto) Baso % (Auto) Lymph # (Auto) [facility] # (Auto) Eos # (Auto) Baso # (Auto) Abs Immat Gran (auto) Absolute Neuts (auto) Absolute Nucleated RBC Nucleated RBC % Sodium 143 Potassium 3.0 L Chloride 118 H Carbon Dioxide 23 Anion Gap 2 L BUN 7 L Creatinine 0.91 Estim Creat Clear Calc 76 Estimated GFR > 60 Glucose 104 POC Capillary Glucose 106 H 111 H Calcium 7.6 L Total Bilirubin AST ALT Alkaline Phosphatase Total Protein Albumin Hospitalist MIPS Advance Care Plan I have confirmed that the patient's Advanced Care Plan is present, code status is documented, or surrogate decision maker is listed in patient medical record.: Yes Medication Reconciliation I have utilized all available resources to obtain, update and review the patients current medications (includes all prescriptions, OTC, herbals, cannabis, and nutritional supplements).: Yes
[2025-04-25] MEDS: DEXTROSE 5%/0.9% SOD CHL 1,000 ML 75 ML IV CONT (17:14)
[2025-04-25 17:40] LABS: Anion Gap 5 mmol/L (4-12); Blood Urea Nitrogen 7 mg/dL (9-20); Calcium 7.8 mg/dL (8.4-10.2); Carbon Dioxide 22 mmol/L (22-30); Chloride 118 mmol/L (98-107); Estimated CRCL calculation 73 ml/min; Estimated Glomerular Filt Rate > 60; Glucose 95 mg/dL (65-110); Potassium 2.8 mmol/L (3.4-5.0); Sodium 145 mmol/L (137-145)
--- NOTE | 2025-04-25 17:46 | ECG_ITS ---
Test Date: 2025-04-25 18:00:53 Measurements Intervals [place] Rate: 63 P: 0 LA: 0 QRS: -32 QRSD: 116 T: 0 QT: 497 QTc: 512 Interpretive Statements ATRIAL FIBRILLATION INFERIOR MYOCARDIAL INFARCTION], PROBABLY OLD Electronically Signed On 04-26-2025 07:21:00 DIRECTOR UTILIZATION MANAGEMENT by Leo Childs D.O
[2025-04-25 23:33] LABS: Potassium 3.0 mmol/L (3.4-5.0)
[2025-04-26] VITALS (17 sets, daily range): BP systolic 122–136; BP diastolic 56–73; PULSE 60–78; RESP 16–24; TEMP 36.3–37.3; O2SAT 96–98
[2025-04-26] MEDS: POTASSIUM CHLORIDE INJ 40 MEQ in SODIUM CHLORIDE 0.9% IV 500 ML 130 MEQ IVPB ×3 (00:14→16:34)
[2025-04-26 04:35] LABS: Hematocrit 29.4 % (42.0-52.0); Hemoglobin 8.9 g/dL (14.0-18.0); Immature Granulocyte Percent A 5.5 % (0-0.5); Lymphocytes Absolute Auto 0.86 K/mm3 (0.9-3.2); Mean Corpuscular HGB Conc 30.3 g/dl (32-36); Mean Corpuscular Hemoglobin 27.1 pg (26-34); Mean Corpuscular Volume 89.6 fl (80-100); Nucleated Red Blood Cells Absolute Auto 0.000 K/mm3 (0.0-0.012); Nucleated Red Blood Cells Perc 0.0 % (0.0-0.2); Platelet Count Result 215 k/mm3 (150-375); Red Blood Count 3.28 M/mm3 (4.6-6.20); White Blood Count 9.1 K/mm3 (4.5-10.0)
[2025-04-26 04:55] LABS: Alanine Aminotransferase 32 U/L (6-50); Albumin Level 2.5 g/dL (3.5-5.1); Alkaline Phosphatase 84 U/L (38-126); Anion Gap 5 mmol/L (4-12); Aspartate Amino Transferase 29 U/L (17-59); Bilirubin,Total 0.6 mg/dL (0.2-1.3); Blood Urea Nitrogen 6 mg/dL (9-20); Calcium 7.7 mg/dL (8.4-10.2); Carbon Dioxide 22 mmol/L (22-30); Chloride 118 mmol/L (98-107); Estimated CRCL calculation 77 ml/min; Estimated Glomerular Filt Rate > 60; Glucose 101 mg/dL (65-110); Potassium 3.3 mmol/L (3.4-5.0); Sodium 145 mmol/L (137-145); Total Protein 5.2 g/dL (6.3-8.2)
[2025-04-26] MEDS: AMIODARONE HCL 200 MG TABLET 400 MG PO ×2 (08:18→18:08)
[2025-04-26] MEDS: SPIRONOLACTONE 25 MG TABLET PO ×2 (08:18→11:02)
[2025-04-26] MEDS: FUROSEMIDE 40 MG TABLET PO (08:18)
[2025-04-26] MEDS: METOPROLOL SUCCINATE EXT REL 50 MG TABCR PO (08:19)
[2025-04-26] MEDS: DOXYCYCLINE HYCLATE 100 MG TABLET PO ×2 (08:19→20:17)
[2025-04-26] MEDS: RIVASTIGMINE TARTRATE 4.6 MG PATCH 1 PATCH TRANSDERM (08:19)
[2025-04-26 08:37] LABS: Anion Gap 4 mmol/L (4-12); Blood Urea Nitrogen 6 mg/dL (9-20); Calcium 7.8 mg/dL (8.4-10.2); Carbon Dioxide 23 mmol/L (22-30); Chloride 117 mmol/L (98-107); Estimated CRCL calculation 80 ml/min; Estimated Glomerular Filt Rate > 60; Glucose 110 mg/dL (65-110); Magnesium 1.6 mg/dL (1.6-2.3); Potassium 3.2 mmol/L (3.4-5.0); Sodium 144 mmol/L (137-145)
[2025-04-26 08:56] LABS: Free T4 Free Thyroxine 1.51 ng/dL (0.78-2.19)
[2025-04-26] MEDS: MAGNESIUM SULF 1 GM/D5W 100 ML 1 GM/100 ML BAG IVPB ×2 (12:53→15:19)
--- NOTE | 2025-04-26 12:56 | PM.PNCARD ---
Progress Note: A&P Assessment and Plan (1) New onset a-fib: Code(s): I48.91 - Unspecified atrial fibrillation Status: Acute (2) Pulmonary embolism: Qualifiers: Pulmonary embolism type: single subsegmental (without acute cor pulmonale) Qualified Code(s): I26.93 - Single subsegmental pulmonary embolism without acute cor pulmonale Code(s): I26.99 - Other pulmonary embolism without acute cor pulmonale Status: Acute (3) Cardiomyopathy: Code(s): I42.9 - Cardiomyopathy, unspecified Status: Acute (4) Thoracic aortic aneurysm without rupture: Qualifiers: Thoracic aorta location: ascending aorta Qualified Code(s): I71.21 - Aneurysm of the ascending aorta, without rupture Code(s): I71.2 - Thoracic aortic aneurysm, without rupture Status: Acute (5) Hodgkin's lymphoma, adult: Code(s): C81.90 - Hodgkin lymphoma, unspecified, unspecified site Status: Acute (6) Congestive heart failure: Qualifiers: Heart failure type: combined systolic and diastolic Heart failure chronicity: chronic Qualified Code(s): I50.42 - Chronic combined systolic (congestive) and diastolic (congestive) heart failure Code(s): I50.9 - Heart failure, unspecified Status: Acute (7) Sepsis: Code(s): A41.9 - Sepsis, unspecified organism Status: Acute (8) AMS (altered mental status): Code(s): R41.82 - Altered mental status, unspecified Status: Acute (9) DVT (deep venous thrombosis): Code(s): I82.409 - Acute embolism and thrombosis of unspecified deep veins of unspecified lower extremity Status: Acute Plan Impression: 1. Paroxysmal atrial fibrillation with rapid ventricular response. Currently significant improvement of the heart rate. Currently on oral amiodarone. Heart rate is 65 with irregularly irregular heartbeat. 2. Recent diagnosis of DVT involving her right leg. Right leg has swelling and pain which has improved. Follow-up CT scan of the leg did not show worsening of the hematoma. Seen by surgery. Patient had IVC filter and subQ heparin has been discontinued. 3. CT scan of the chest positive for stable ascending aorta aneurysm measuring at 5.8 cm. Patient does not want any surgery at this time. 4. Large hematoma of the posterior compartment of the right leg without active contrast extravasation on previous CT on 03/19/2025. Bilateral Roman cyst noted. Follow-up CT scan of the leg shows stability without worsening of the hematoma. 5. Morbid obesity. Patient weighs 115.5 kg. 6. Acute mental status changes with garbled speech. Significantly improved. CT scan of the head is negative for any acute intracranial process. Slowly improving. 7. Severe hypokalemia admission at 2.7 now increased to 3.1 per. Patient is on Aldactone as well as potassium supplement. 8. Elevated proBNP at 3820. Troponin I was 0.05 and remained stable without suggestion for acute coronary syndrome. Recommendations: #. Surgical consult for right leg hematoma and possible need for evacuation. Patient has severe pain in the right leg. Follow-up CT scan of the right leg does not show significant change from previous CT scan. Patient continues to have swelling and pain. #. Currently heart rate 55-65 per minute and blood pressure is 122/73. Continue present medical management. - patient on oral amiodarone 400 mg p.o. b.i.d. for 7 days followed by 200 mg daily #. Echocardiogram shows technically difficult echo with preserved systolic function at 60-65% and atrial fibrillation. #. Current medications reviewed. Currently on full-dose Lovenox, add metoprolol succinate 50 mg daily, Aldactone 25 mg daily and Lasix 40 mg daily for chronic diastolic heart failure. Full-dose Lovenox discontinued after IVC filter. #. Hematology and general surgery consult noted. IVC filter recommended by hematology service due to worsening hemoglobin. Status post placement of IVC filter on 04/24/2025. Continue present medical management and increase activity as tolerated. Discontinue full-dose subcu Lovenox when ready per Hematology Service. From Cardiology point of view patient appears to be improved with increase mentation, controlled heart rate of. Recommend discharging him to rehab. Discussed with the primary hospitalist. Subjective Date/time seen: 04/26/25 12:56 Interval history: Review of HPI: 74-year-old gentleman admitted on 04/20/2025 with atrial fibrillation and rapid ventricular response at the her her in 35 per minute. Patient has significant cardiac problems including thoracic aortic aneurysm measuring 5.8 cm, history of pulmonary embolism/DVT on therapeutic Lovenox. Patient was recently diagnosed with DVT on the right leg and subsequently discharged on subQ Lovenox. Patient was subsequently treated at [facility] a right leg DVT and suspicion for compartment syndrome. The surgery was done and patient discharged on anticoagulation. Patient also has history of congestive heart failure and obstructive sleep apnea. Patient apparently had mental status changes and weakness for which she was transferred back to the hospital emergency room. Patient was lethargic with garbled speech from [facility], [place], operated by [facility]. Initial workup in the emergency room reveal low blood pressure 92/60 artery was 136 per minute patient was afebrile with 98% saturation. Patient was more awake alert in the emergency room but continued to have mildly garbled speech. Admitting laboratory data creatinine 1.36, BNP was 3820. Urine had 3+ protein urea and potassium was 3.0. Patient was subsequently started on amiodarone drip to help with the heart rate. CT scan of the head was negative for any acute changes. 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 Subjective; Patient was examined at the bedside. Patient sitting the chair and appears comfortable except for moderately severe right leg pain. Status post placement of IVC filter. Follow-up CT scan of the right leg did not show significant worsening of posterior hematoma on the leg. Patient continues to have pain in the right leg calf with the tenderness swollen right calf of stable in size. Review of Systems Review of Systems: Twelve point review of system was completed. Pertinent positive and negative findings per HPI. Constitutional negative of fever or weight loss. Head and neck negative. Cardiovascular negative for chest pain or shortness of breath. Pulmonary system negative for wheezing or rhonchi. Right leg positive for swelling in moderate to severe pain. Exam Narrative: Patient was examined at the bedside. Patient is sitting in the chair and her complaints of right leg pain. Breathing is stable. Patient is more awake and alert today answering questions. Head and neck examination is unremarkable. Neck is supple. There is no JVD or carotid bruit. Lungs reveal decreased air entry bilaterally. Heart sounds reveal normal S1-S2. Her rhythm is irregularly irregular. Abdomen is obese without hepatosplenomegaly. Bowel sounds present throughout Extremities revealed swelling of the right leg os patient did cough up with localized tenderness. There is no ecchymosis or bluish discoloration. Neurological examination is intact. Objective Data Vital Signs Vital Signs: Vital Signs - 24 hr 04/25/25 14:30 04/25/25 14:45 04/25/25 15:00 Temperature Pulse Rate 56 L 57 L 59 L Respiratory Rate 15 16 15 Blood Pressure 128/53 L 124/58 L 107/50 L Pulse Oximetry 98 96 98 Oxygen Delivery Room Air Room Air Room Air 04/25/25 15:15 04/25/25 15:30 04/25/25 16:00 Temperature 36.3 C L Pulse Rate 59 L 56 L 55 L Respiratory Rate 16 17 22 H Blood Pressure 119/59 L 129/65 117/71 Pulse Oximetry 100 100 100 Oxygen Delivery Room Air Room Air 04/25/25 16:00 04/25/25 16:25 04/25/25 17:00 Temperature 36.7 C Pulse Rate 60 62 68 Respiratory Rate 20 Blood Pressure 152/68 H Pulse Oximetry 98 Oxygen Delivery 04/25/25 18:00 04/25/25 18:30 04/25/25 20:00 Temperature 36.8 C 36.8 C Pulse Rate 52 L 66 58 L Respiratory Rate 22 H 18 Blood Pressure 119/45 L 121/83 Pulse Oximetry 98 98 Oxygen Delivery 04/25/25 20:00 04/25/25 20:00 04/25/25 22:00 Temperature Pulse Rate 57 L 76 Respiratory Rate Blood Pressure Pulse Oximetry Oxygen Delivery Room Air 04/25/25 23:44 04/25/25 23:59 04/26/25 00:00 Temperature 36.8 C Pulse Rate 81 76 Respiratory Rate 16 Blood Pressure 136/60 Pulse Oximetry 100 Oxygen Delivery Room Air 04/26/25 04:00 04/26/25 04:00 04/26/25 04:00 Temperature 36.7 C Pulse Rate 65 68 Respiratory Rate 18 Blood Pressure 129/59 L Pulse Oximetry 97 Oxygen Delivery Room Air 04/26/25 06:00 04/26/25 07:57 04/26/25 08:00 Temperature 37.1 C Pulse Rate 67 63 67 Respiratory Rate 22 H Blood Pressure 127/64 Pulse Oximetry 97 Oxygen Delivery 04/26/25 08:18 04/26/25 08:19 04/26/25 10:00 Temperature Pulse Rate 69 67 77 Respiratory Rate Blood Pressure Pulse Oximetry Oxygen Delivery 04/26/25 12:00 04/26/25 12:00 Temperature 37.3 C Pulse Rate 61 66 Respiratory Rate 24 H Blood Pressure 122/73 Pulse Oximetry 98 Oxygen Delivery Intake/Output Intake/Output: Intake & Output 04/23/25 04/24/25 04/25/25 04/26/25 23:59 23:59 23:59 23:59 Intake Total 1812.4 2525.0 1110 1140 Output Total 1600 1275 300 450 Balance 212.4 1250.0 810 690 Meds/Results Medications: Active Medications Generic Name Dose Route Start Last Admin Trade Name Freq PRN Reason Stop Dose Admin Acetaminophen 650 mg 04/19/25 21:40 04/24/25 20:08 Acetaminophen 325 Mg Tablet PO 650 mg Q4H PRN Administration Mild Pain (1-3) or Fever Amiodarone HCl 400 mg 04/24/25 17:00 04/26/25 08:18 Amiodarone Hcl 200 Mg Tablet PO 05/01/25 09:01 400 mg BID ANGELICA Administration Amiodarone HCl 200 mg 05/02/25 08:00 Amiodarone Hcl 200 Mg Tablet PO DAILY@0800 ANGELICA Amoxicillin/Clavulanate Potassium 1 tablet 04/23/25 21:00 04/26/25 08:18 Amoxicillin/Clavulanate K 875-125 Mg Tab PO 04/26/25 21:01 1 tablet Q12HR ANGELICA Administration Doxycycline Hyclate 100 mg 04/23/25 21:00 04/26/25 08:19 Doxycycline Hyclate 100 Mg Tablet PO 04/26/25 21:01 100 mg Q12HR ANGELICA Administration Furosemide 40 mg 04/25/25 09:00 04/26/25 08:18 Furosemide 40 Mg Tablet PO 40 mg DAILY ANGELICA Administration Dextrose/Sodium Chloride 1,000 mls @ 75 mls/hr 04/20/25 15:50 04/26/25 08:25 Dextrose 5% Sodium Chloride 0.9% IV CONT Not Given .[id number] ANGELICA Metoprolol Succinate 50 mg 04/24/25 12:15 04/26/25 08:19 Metoprolol Succinate Ext Rel 50 Mg Tabcr PO 50 mg QAM ANGELICA Administration Ondansetron HCl 4 mg 04/19/25 21:40 Ondansetron Inj 4 Mg/2 Ml Vial IV PUSH Q4H PRN Nausea Potassium Chloride 20 meq 04/27/25 09:00 Potassium Chloride 20 Meq Er Tablet PO DAILY ANGELICA Rivastigmine 1 patch 04/20/25 09:00 04/26/25 08:19 Rivastigmine Tartrate 4.6 Mg Patch TRANSDERM 1 patch DAILY [facility] Administration Rosuvastatin Calcium 40 mg 04/26/25 18:00 Rosuvastatin 20 Mg Tablet PO EVENING ANGELICA Spironolactone 50 mg 04/27/25 09:00 Spironolactone 50 Mg Tablet PO QAM [facility] Radiology Results: ITS Impressions Chest X-Ray 04/19/25 18:25 IMPRESSION: 1. Suspect left perihilar airspace disease. Can consider PA and lateral films with deep inspiration. Head CT 04/19/25 20:34 IMPRESSION: No acute intracranial hemorrhage or extra axial fluid collections. All CT scans at this facility are performed using low dose modulation techniques as appropriate to perform exam including the following: automated exposure control; use of iterative reconstruction technique; adjustment of the mA and/or kV according to patient size (this includes techniques or standardized protocols for targeted exams where dose is matched to indication/reason for exam). Chest/Abdomen/Pelvis CTA 04/19/25 20:37 IMPRESSION: CHEST- 1. Mildly enlarged lymph nodes left axilla. Malignancy not excluded. 2. 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 Recommend surgical consultation. 3. No PE or other acute cardiopulmonary findings. ABDOMEN/PELVIS- 1. No acute abdominopelvic findings. Modified Barium Swallow 04/23/25 10:18 IMPRESSION: Pharyngeal dysphagia with laryngeal penetration without aspiration. Please correlate with speech pathologist findings and specific feeding recommendations. Lower Extremity CT 04/24/25 13:03 IMPRESSION: 1. No significant change in size of a 22.6 x 11.9 x 5.2 cm complex fluid collection in the posterior compartment of the right calf most likely an evolving hematoma. Differential would include abscess in the appropriate clinical setting. 2. Mild patellofemoral osteoarthritis with persistent nonspecific small right knee joint effusion. Labs Labs: Laboratory Results - last 24 hr 04/25/25 04/25/25 04/25/25 11:55 12:18 17:12 WBC RBC Hgb Hct MCV MCH MCHC RDW Plt Count MPV Immature Gran % (Auto) Neut % (Auto) Lymph % (Auto) Kerr % (Auto) Eos % (Auto) Baso % (Auto) Lymph # (Auto) Kerr # (Auto) Eos # (Auto) Baso # (Auto) Abs Immat Gran (auto) Absolute Neuts (auto) Absolute Nucleated RBC Nucleated RBC % Sodium 143 145 Potassium 3.0 L 2.8 L* Chloride 118 H 118 H Carbon Dioxide 23 22 Anion Gap 2 L 5 BUN 7 L 7 L Creatinine 0.91 0.94 Estim Creat Clear Calc 76 73 Estimated GFR > 60 > 60 Glucose 104 95 POC Capillary Glucose 111 H Calcium 7.6 L 7.8 L Magnesium Total Bilirubin AST ALT Alkaline Phosphatase Total Protein Albumin Free T4 Thyroxine (T4) 04/25/25 04/25/25 04/25/25 18:04 23:17 23:26 WBC RBC Hgb Hct MCV MCH MCHC RDW Plt Count MPV Immature Gran % (Auto) Neut % (Auto) Lymph % (Auto) Kerr % (Auto) Eos % (Auto) Baso % (Auto) Lymph # (Auto) Kerr # (Auto) Eos # (Auto) Baso # (Auto) Abs Immat Gran (auto) Absolute Neuts (auto) Absolute Nucleated RBC Nucleated RBC % Sodium Potassium 3.0 L Chloride Carbon Dioxide Anion Gap BUN Creatinine Estim Creat Clear Calc Estimated GFR Glucose POC Capillary Glucose 97 105 Calcium Magnesium Total Bilirubin AST ALT Alkaline Phosphatase Total Protein Albumin Free T4 Thyroxine (T4) 04/26/25 04/26/25 04/26/25 04:25 08:04 11:18 WBC 9.1 RBC 3.28 L Hgb 8.9 L Hct 29.4 L MCV 89.6 MCH 27.1 MCHC 30.3 L RDW 16.6 H Plt Count 215 MPV 9.7 Immature Gran % (Auto) 5.5 H Neut % (Auto) 71.0 Lymph % (Auto) 9.4 L Kerr % (Auto) 8.1 Eos % (Auto) 5.2 H Baso % (Auto) 0.8 Lymph # (Auto) 0.86 L Kerr # (Auto) 0.7 H Eos # (Auto) 0.5 H Baso # (Auto) 0.1 Abs Immat Gran (auto) 0.50 H Absolute Neuts (auto) 6.5 Absolute Nucleated RBC 0.000 Nucleated RBC % 0.0 Sodium 145 144 Potassium 3.3 L 3.2 L Chloride 118 H 117 H Carbon Dioxide 22 23 Anion Gap 5 4 BUN 6 L 6 L Creatinine 0.89 0.86 Estim Creat Clear Calc 77 80 Estimated GFR > 60 > 60 Glucose 101 110 POC Capillary Glucose 111 H Calcium 7.7 L 7.8 L Magnesium 1.6 Total Bilirubin 0.6 AST 29 ALT 32 Alkaline Phosphatase 84 Total Protein 5.2 L Albumin 2.5 L Free T4 1.51 Thyroxine (T4) 10.00
--- NOTE | 2025-04-26 13:01 | PCNFU ---
Nutrition Follow-Up Complete: Increased nutrient needs related to altered skin integrity as evidenced by multiple pressure injuries Swallowing difficulties related to dysphagia as evidenced by need for MBS and further speech evaluation Diet order - Goal is met. Continue with goal of improved PO intake Goal: Pt current nutrition is Heart healthy, soft & bite sized, Moderately thick L3 liquids. Nutrition recommendation: Add Ensure Plus HP BID (moderately thick) Last recorded weight is 110.6 kg. Bowel Motility:+ 3 BMs 04/25 Labs Reviewed: Hgb 8.9, Hct 29.4, Alb 2.5, K+ 3.2, BUN 6 Meds Noted: Lovenox Skin: Stage 2 buttocks, Deep tissue injury buttocks, sacrum Additional Notes: Intakes 0-15%. Per RN, pt does not like the food, particularly thickened liquids. Will try Ensure but pt may not drink it because it needs to be thickened to L3. Has dementia and forgets about the need for thickened liquids. Monitor MBS results, recommendations, diet orders, wt, labs, skin. Follow up in 3 days.
[2025-04-26 14:59] LABS: Anion Gap 2 mmol/L (4-12); Blood Urea Nitrogen 7 mg/dL (9-20); Calcium 8.0 mg/dL (8.4-10.2); Carbon Dioxide 22 mmol/L (22-30); Chloride 117 mmol/L (98-107); Estimated CRCL calculation 78 ml/min; Estimated Glomerular Filt Rate > 60; Glucose 108 mg/dL (65-110); Magnesium 1.8 mg/dL (1.6-2.3); Potassium 3.2 mmol/L (3.4-5.0); Sodium 141 mmol/L (137-145)
[2025-04-26] MEDS: DEXTROSE 5%/0.9% SOD CHL 1,000 ML 75 ML IV CONT (15:19)
[2025-04-26] MEDS: ROSUVASTATIN 20 MG TABLET 40 MG PO (16:35)
--- NOTE | 2025-04-26 16:40 | PM.IMPN ---
Progress Note: A&P Assessment and Plan (1) New onset a-fib: Code(s): I48.91 - Unspecified atrial fibrillation Status: Acute Assessment and Plan: - new onset of AFib. -ECHO EF 60-65% and diastolic dysfunction indeterminate -the patient has already been on Lovenox, currently held due to hematoma -Isai Vasc score is 5. cardiology recommends oral amiodarone 400 mg p.o. b.i.d. for 7 days followed by 20 mg daily (2) Congestive heart failure: Qualifiers: Heart failure type: combined systolic and diastolic Heart failure chronicity: chronic Qualified Code(s): I50.42 - Chronic combined systolic (congestive) and diastolic (congestive) heart failure Code(s): I50.9 - Heart failure, unspecified Status: Acute Assessment and Plan: ECHO showed EF 60-65%, diastolic dysfunction indeterminate -his Entresto has been on hold at this time as he is not awake enough to take p.o. medications. -resume spironolactone when patient is able to take p.o. well -troponin is 0.050 which could be elevated from heart failure or from the AFib RVR. Continue to monitor troponins. demand ischemia 04/21/2025 (3) HTN (hypertension): Qualifiers: Hypertension type: essential hypertension Qualified Code(s): I10 - Essential (primary) hypertension Code(s): I10 - Essential (primary) hypertension Status: Acute Assessment and Plan: -the patient is currently on amiodarone. -Entresto is on hold at this time -his current blood pressure is 103/54. (4) Mixed hyperlipidemia: Code(s): E78.2 - Mixed hyperlipidemia Status: Acute Assessment and Plan: -patient is not awake enough to take p.o. medication at this time. Resume home medication of rosuvastatin when able. (5) History of deep vein thrombosis: Code(s): Z86.718 - Personal history of other venous thrombosis and embolism Status: Acute Assessment and Plan: -off anticoagulation due to acute hematoma 04/25: Status post IVC filter placement from the left side by surgery. (6) Hodgkin's lymphoma, adult: Code(s): C81.90 - Hodgkin lymphoma, unspecified, unspecified site Status: Acute Assessment and Plan: -Hematology-Oncology consultation greatly appreciated. His CT scan does show slightly enlarged axillary lymph node. Malignancy not excluded. (7) Leukocytosis: Code(s): D72.829 - Elevated white blood cell count, unspecified Status: Acute Assessment and Plan: -his white count is up to 21.6. -blood cultures are pending -the patient was empirically started on cefepime and vancomycin. -hematology/oncology has been consulted as well. -daily CBCs resolved (8) JONAH (obstructive sleep apnea): Code(s): G47.33 - Obstructive sleep apnea (adult) (pediatric) Status: Acute Assessment and Plan: -home settings for CPAP/BiPAP (9) Hematoma of right lower extremity: Code(s): S80.11XA - Contusion of right lower leg, initial encounter Status: Acute Assessment and Plan: Groin hematoma likely due to anticoagulation without concern for compartment syndrome per surgery. Surgery discussed with Hematology in a group for IVC filter placement which was discussed with family. Anticoagulation has been discontinued given this hematoma. 04/25: [facility] [employer] had continued concern for hematoma, surgery had not commented on it, patient is currently off anticoagulation, CT scan was urgently ordered which showed no worsening of hematoma. Calf pain has been improving as well. Hematology agrees to discontinuation of anticoagulation given IVC filter placement. 04/26: Will need to reach out to surgery course to further management of leg hematoma, likely no further management from their point of view (10) Thoracic aortic aneurysm without rupture: Qualifiers: Thoracic aorta location: ascending aorta Qualified Code(s): I71.21 - Aneurysm of the ascending aorta, without rupture Code(s): I71.2 - Thoracic aortic aneurysm, without rupture Status: Acute Assessment and Plan: 5.8 cm aortic aneurysm on imaging, patient is aware of this and does not wish to pursue operative management at this time given significant risk. He is aware of risks of not operating. Family/POA is on board. (11) Hypokalemia: Code(s): E87.6 - Hypokalemia Status: Acute Assessment and Plan: Significant hypokalemia this morning at 2.7, aggressive repletion was done, repeat potassium only improved to 3.0. Continued repletion 40 mg IV potassium administered, routine follow-up ordered Continues of hypokalemia, magnesium was administered and IV potassium chloride was administered as well, potassium is improving Continue monitoring potassium after administration of repletion dose Plan DVT prophylaxis on hold due to active bleeding Subjective Date/time seen: 04/26/25 16:40 Interval history: This is a 74-year-old male patient who had recently was transferred to [facility] on 03/19/2025 for concerned compartment syndrome with the DVT. No intervention was performed at that time. He is at [facility], [place], operated by [facility]. The patient is currently on subQ Lovenox. Has history of sleep apnea and congestive heart failure. The patient was brought to the emergency room for altered mental status and weakness his symptoms have been ongoing for 6 days but recently worsened over the last 2 days. The patient is only orientated to himself and has garbled speech. His family was at the bedside earlier but have left since ER. His white count is noted to be 21.6. His H&H is 12.5 and 40.2 but above his baseline. His BUN is 24 which is near his baseline. And a creatinine of 1.36 with a normal baseline. His troponin is 0.050. His BNP was noted to be 3820. Urine has 3+ protein, 1+ ketones, 2+ blood. His potassium was 3.0. His EKG was read as AFib with RVR. His blood pressure was 105/57. He was started on an amiodarone drip. Head CT was read as no acute intracranial hemorrhage or extra axillo florid collections. Chest x-ray was read as suspect left hip perihilar airspace disease. Consider PA and lateral films with deep inspiration. CTA was read as1. Mildly enlarged lymph nodes left axilla. Malignancy not excluded. 2. 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 Recommend surgical consultation. 3. No PE or other acute cardiopulmonary findings. The patient was started on cefepime and vancomycin. The patient is being admitted to observation status on the date of service of 04/20/2025 Review of Systems Review of Systems: ROS unobtainable: Yes unobtainable due to medical condition and unobtainable due to mental status Constitutional: Constitutional: Reports as per HPI Eyes: Eyes: Reports as per HPI and Reports no additional eye complaints ENT: Reports Normal hearing present Cardiovascular: Cardiovascular: Reports no additional cardiovascular complaints Respiratory: Respiratory: Reports as per HPI Gastrointestinal: Gastrointestinal: Reports as per HPI and Reports no additional gastrointestinal complaints Musculoskeletal: Musculoskeletal: Reports no additional musculoskeletal complaints Integumentary/Breasts: Skin/Breast: Reports system reviewed and no additional complaints, except as docu Neurologic: Reports system reviewed and no additional complaints, except as documented and Reports Normal hearing present Psychiatric: Psychiatric: Reports no additional psychiatric complaints and Reports as per HPI Hematologic/Lymphatic: Hematologic/Lymphatic: Reports no additional hematologic/lymphatic complaints Allergic/Immunologic: Allergic/Immunologic: Reports no additional allergic/immunologic complaints Exam Const: General: cooperative, no acute distress, well developed, awake, Physically active, average body habitus and well nourished Nutritional Appearance: well nourished Orientation/consciousness: oriented to person HENMT: Head: normal to inspection, No palpable skull fracture present and normocephalic Eyes: General: appearance normal, both eyes and all related structures Alignment and Position: alignment normal Periorbital: periorbital findings normal Eyelids: eyelids normal Conjunctivae: conjunctivae normal Sclera: sclerae normal Cornea: corneas normal Pupils: Equal, round and reactive pupils present and Pupil accommodation reflex normal EOM: EOMs intact bilaterally Neck: Neck: normal visual inspection Chest: Chest palpation & inspection: normal inspection of the chest Resp: Effort & Inspection: normal respiratory effort Auscultation: clear to auscultation bilaterally Cardio: Palpation: normal PMI Rate: regular rate Rhythm: regular rhythm Heart sounds: S1 normal heart sound present and S2 normal heart sound present Peripheral pulses: Peripheral pulses 2+ throughout GI: Inspection: normal to inspection Auscultation: normal bowel sounds Rectal Exam: deferred Back/Spine/Pelvis: Thoracic/Lumbar Spine: thoracic and lumbar spine normal to inspection Skin: General skin exam: normal color Lesions: no lesions Rashes: no rashes Trauma: no lacerations or abrasions Wounds: no wounds Hair: normal Nails: normal Neuro: General: oriented to person Cranial nerves: Yes Equal, round and reactive pupils present and Yes Normal hearing present Extrem: General: normal to inspection Right upper extremity: normal to inspection and shoulder/upper arm Left upper extremity: normal to inspection and shoulder/upper arm Other: I lower extremity with persistent edema and pain with induration palpable at the calf Psych: Appearance: grossly normal Mental Status: mental status grossly normal Objective Data Vital Signs Vital Signs: Vital Signs - 24 hr 04/25/25 17:00 04/25/25 18:00 04/25/25 18:30 Temperature 98.1 F 98.3 F Pulse Rate 68 52 L 66 Respiratory Rate 20 22 H Blood Pressure 152/68 H 119/45 L Pulse Oximetry 98 98 Oxygen Delivery 04/25/25 20:00 04/25/25 20:00 04/25/25 20:00 Temperature 98.3 F Pulse Rate 58 L 57 L Respiratory Rate 18 Blood Pressure 121/83 Pulse Oximetry 98 Oxygen Delivery Room Air 04/25/25 22:00 04/25/25 23:44 04/25/25 23:59 Temperature 98.2 F Pulse Rate 76 81 Respiratory Rate 16 Blood Pressure 136/60 Pulse Oximetry 100 Oxygen Delivery Room Air 04/26/25 00:00 04/26/25 04:00 04/26/25 04:00 Temperature 98.0 F Pulse Rate 76 65 Respiratory Rate 18 Blood Pressure 129/59 L Pulse Oximetry 97 Oxygen Delivery Room Air 04/26/25 04:00 04/26/25 06:00 04/26/25 07:57 Temperature 98.8 F Pulse Rate 68 67 63 Respiratory Rate 22 H Blood Pressure 127/64 Pulse Oximetry 97 Oxygen Delivery 04/26/25 08:00 04/26/25 08:18 04/26/25 08:19 Temperature Pulse Rate 67 69 67 Respiratory Rate Blood Pressure Pulse Oximetry Oxygen Delivery 04/26/25 10:00 04/26/25 12:00 04/26/25 12:00 Temperature 99.2 F Pulse Rate 77 61 66 Respiratory Rate 24 H Blood Pressure 122/73 Pulse Oximetry 98 Oxygen Delivery 04/26/25 15:33 Temperature 97.4 F L Pulse Rate 60 Respiratory Rate 16 Blood Pressure 136/56 L Pulse Oximetry 98 Oxygen Delivery Intake/Output Intake/Output: Intake & Output 04/23/25 04/24/25 04/25/25 04/26/25 23:59 23:59 23:59 23:59 Intake Total 1812.4 2525.0 1110 2140 Output Total 1600 1275 300 450 Balance 212.4 1250.0 810 1690 Meds/Results Medications: Active Medications Generic Name Dose Route Start Last Admin Trade Name Freq PRN Reason Stop Dose Admin Acetaminophen 650 mg 04/19/25 21:40 04/24/25 20:08 Acetaminophen 325 Mg Tablet PO 650 mg Q4H PRN Administration Mild Pain (1-3) or Fever Amiodarone HCl 400 mg 04/24/25 17:00 04/26/25 08:18 Amiodarone Hcl 200 Mg Tablet PO 05/01/25 09:01 400 mg BID ANGELICA Administration Amiodarone HCl 200 mg 05/02/25 08:00 Amiodarone Hcl 200 Mg Tablet PO DAILY@0800 ANGELICA Amoxicillin/Clavulanate Potassium 1 tablet 04/23/25 21:00 04/26/25 08:18 Amoxicillin/Clavulanate K 875-125 Mg Tab PO 04/26/25 21:01 1 tablet Q12HR ANGELICA Administration Doxycycline Hyclate 100 mg 04/23/25 21:00 04/26/25 08:19 Doxycycline Hyclate 100 Mg Tablet PO 04/26/25 21:01 100 mg Q12HR ANGELICA Administration Furosemide 40 mg 04/25/25 09:00 04/26/25 08:18 Furosemide 40 Mg Tablet PO 40 mg DAILY ANGELICA Administration Dextrose/Sodium Chloride 1,000 mls @ 75 mls/hr 04/20/25 15:50 04/26/25 15:19 Dextrose 5% Sodium Chloride 0.9% IV CONT 75 mls/hr .[id number] ANGELICA Administration Potassium Chloride 40 meq/ 520 mls @ 130 mls/hr 04/26/25 15:30 04/26/25 16:34 Sodium Chloride IVPB 04/26/25 19:29 130 mls/hr ONCE ONE Administration Metoprolol Succinate 50 mg 04/24/25 12:15 04/26/25 08:19 Metoprolol Succinate Ext Rel 50 Mg Tabcr PO 50 mg QAM ANGELICA Administration Ondansetron HCl 4 mg 04/19/25 21:40 Ondansetron Inj 4 Mg/2 Ml Vial IV PUSH Q4H PRN Nausea Potassium Chloride 20 meq 04/27/25 09:00 Potassium Chloride 20 Meq Er Tablet PO DAILY ANGELICA Rivastigmine 1 patch 04/20/25 09:00 04/26/25 08:19 Rivastigmine Tartrate 4.6 Mg Patch TRANSDERM 1 patch DAILY ANGELICA Administration Rosuvastatin Calcium 40 mg 04/26/25 18:00 04/26/25 16:35 Rosuvastatin 20 Mg Tablet PO 40 mg EVENING ANGELICA Administration Spironolactone 50 mg 04/27/25 09:00 Spironolactone 50 Mg Tablet PO QAM ANGELICA Radiology Results: ITS Impressions Chest X-Ray 04/19/25 18:25 IMPRESSION: 1. Suspect left perihilar airspace disease. Can consider PA and lateral films with deep inspiration. Head CT 04/19/25 20:34 IMPRESSION: No acute intracranial hemorrhage or extra axial fluid collections. All CT scans at this facility are performed using low dose modulation techniques as appropriate to perform exam including the following: automated exposure control; use of iterative reconstruction technique; adjustment of the mA and/or kV according to patient size (this includes techniques or standardized protocols for targeted exams where dose is matched to indication/reason for exam). Chest/Abdomen/Pelvis CTA 04/19/25 20:37 IMPRESSION: CHEST- 1. Mildly enlarged lymph nodes left axilla. Malignancy not excluded. 2. 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 Recommend surgical consultation. 3. No PE or other acute cardiopulmonary findings. ABDOMEN/PELVIS- 1. No acute abdominopelvic findings. Modified Barium Swallow 04/23/25 10:18 IMPRESSION: Pharyngeal dysphagia with laryngeal penetration without aspiration. Please correlate with speech pathologist findings and specific feeding recommendations. Lower Extremity CT 04/24/25 13:03 IMPRESSION: 1. No significant change in size of a 22.6 x 11.9 x 5.2 cm complex fluid collection in the posterior compartment of the right calf most likely an evolving hematoma. Differential would include abscess in the appropriate clinical setting. 2. Mild patellofemoral osteoarthritis with persistent nonspecific small right knee joint effusion. Labs Labs: Laboratory Results - last 24 hr 04/25/25 04/25/25 04/25/25 17:12 18:04 23:17 WBC RBC Hgb Hct MCV MCH MCHC RDW Plt Count MPV Immature Gran % (Auto) Neut % (Auto) Lymph % (Auto) Kimball % (Auto) Eos % (Auto) Baso % (Auto) Lymph # (Auto) Kimball # (Auto) Eos # (Auto) Baso # (Auto) Abs Immat Gran (auto) Absolute Neuts (auto) Absolute Nucleated RBC Nucleated RBC % Sodium 145 Potassium 2.8 L* 3.0 L Chloride 118 H Carbon Dioxide 22 Anion Gap 5 BUN 7 L Creatinine 0.94 Estim Creat Clear Calc 73 Estimated GFR > 60 Glucose 95 POC Capillary Glucose 97 Calcium 7.8 L Magnesium Total Bilirubin AST ALT Alkaline Phosphatase Total Protein Albumin Free T4 Thyroxine (T4) 04/25/25 04/26/25 04/26/25 23:26 04:25 08:04 WBC 9.1 RBC 3.28 L Hgb 8.9 L Hct 29.4 L MCV 89.6 MCH 27.1 MCHC 30.3 L RDW 16.6 H Plt Count 215 MPV 9.7 Immature Gran % (Auto) 5.5 H Neut % (Auto) 71.0 Lymph % (Auto) 9.4 L Kimball % (Auto) 8.1 Eos % (Auto) 5.2 H Baso % (Auto) 0.8 Lymph # (Auto) 0.86 L Kimball # (Auto) 0.7 H Eos # (Auto) 0.5 H Baso # (Auto) 0.1 Abs Immat Gran (auto) 0.50 H Absolute Neuts (auto) 6.5 Absolute Nucleated RBC 0.000 Nucleated RBC % 0.0 Sodium 145 144 Potassium 3.3 L 3.2 L Chloride 118 H 117 H Carbon Dioxide 22 23 Anion Gap 5 4 BUN 6 L 6 L Creatinine 0.89 0.86 Estim Creat Clear Calc 77 80 Estimated GFR > 60 > 60 Glucose 101 110 POC Capillary Glucose 105 Calcium 7.7 L 7.8 L Magnesium 1.6 Total Bilirubin 0.6 AST 29 ALT 32 Alkaline Phosphatase 84 Total Protein 5.2 L Albumin 2.5 L Free T4 1.51 Thyroxine (T4) 10.00 04/26/25 04/26/25 11:18 14:39 WBC RBC Hgb Hct MCV MCH MCHC RDW Plt Count MPV Immature Gran % (Auto) Neut % (Auto) Lymph % (Auto) Kimball % (Auto) Eos % (Auto) Baso % (Auto) Lymph # (Auto) Kimball # (Auto) Eos # (Auto) Baso # (Auto) Abs Immat Gran (auto) Absolute Neuts (auto) Absolute Nucleated RBC Nucleated RBC % Sodium 141 Potassium 3.2 L Chloride 117 H Carbon Dioxide 22 Anion Gap 2 L BUN 7 L Creatinine 0.88 Estim Creat Clear Calc 78 Estimated GFR > 60 Glucose 108 POC Capillary Glucose 111 H Calcium 8.0 L Magnesium 1.8 Total Bilirubin AST ALT Alkaline Phosphatase Total Protein Albumin Free T4 Thyroxine (T4) Hospitalist MIPS Advance Care Plan I have confirmed that the patient's Advanced Care Plan is present, code status is documented, or surrogate decision maker is listed in patient medical record.: Yes Medication Reconciliation I have utilized all available resources to obtain, update and review the patients current medications (includes all prescriptions, OTC, herbals, cannabis, and nutritional supplements).: Yes
[2025-04-26 22:28] LABS: Anion Gap 3 mmol/L (4-12); Blood Urea Nitrogen 6 mg/dL (9-20); Calcium 7.7 mg/dL (8.4-10.2); Carbon Dioxide 22 mmol/L (22-30); Chloride 116 mmol/L (98-107); Estimated CRCL calculation 81 ml/min; Estimated Glomerular Filt Rate > 60; Glucose 106 mg/dL (65-110); Magnesium 1.9 mg/dL (1.6-2.3); Potassium 3.2 mmol/L (3.4-5.0); Sodium 141 mmol/L (137-145)
[2025-04-27] VITALS (13 sets, daily range): BP systolic 104–138; BP diastolic 48–60; PULSE 59–87; RESP 15–20; TEMP 36.5–37.3; O2SAT 95–99
[2025-04-27 04:28] LABS: Hematocrit 29.2 % (42.0-52.0); Hemoglobin 8.9 g/dL (14.0-18.0); Immature Granulocyte Percent A 5.7 % (0-0.5); Lymphocytes Absolute Auto 0.83 K/mm3 (0.9-3.2); Mean Corpuscular HGB Conc 30.5 g/dl (32-36); Mean Corpuscular Hemoglobin 27.1 pg (26-34); Mean Corpuscular Volume 89.0 fl (80-100); Nucleated Red Blood Cells Absolute Auto 0.000 K/mm3 (0.0-0.012); Nucleated Red Blood Cells Perc 0.0 % (0.0-0.2); Platelet Count Result 224 k/mm3 (150-375); Red Blood Count 3.28 M/mm3 (4.6-6.20); White Blood Count 8.6 K/mm3 (4.5-10.0)
[2025-04-27 04:47] LABS: Alanine Aminotransferase 27 U/L (6-50); Albumin Level 2.5 g/dL (3.5-5.1); Alkaline Phosphatase 81 U/L (38-126); Anion Gap 2 mmol/L (4-12); Aspartate Amino Transferase 26 U/L (17-59); Bilirubin,Total 0.6 mg/dL (0.2-1.3); Blood Urea Nitrogen 5 mg/dL (9-20); Calcium 7.7 mg/dL (8.4-10.2); Carbon Dioxide 24 mmol/L (22-30); Chloride 115 mmol/L (98-107); Estimated CRCL calculation 86 ml/min; Estimated Glomerular Filt Rate > 60; Glucose 109 mg/dL (65-110); Potassium 3.0 mmol/L (3.4-5.0); Sodium 141 mmol/L (137-145); Total Protein 5.1 g/dL (6.3-8.2)
[2025-04-27 04:52] LABS: Anisocytosis Occasional; Hypochromasia 1+; Ovalocytes Occasional; Schistocytes None Seen
[2025-04-27] MEDS: POTASSIUM CHLORIDE INJ 40 MEQ in SODIUM CHLORIDE 0.9% IV 500 ML 130 MEQ IVPB (05:43)
[2025-04-27] MEDS: AMIODARONE HCL 200 MG TABLET 400 MG PO ×2 (08:25→17:17)
[2025-04-27] MEDS: SPIRONOLACTONE 50 MG TABLET PO (08:25)
[2025-04-27] MEDS: POTASSIUM CHLORIDE 20 MEQ ER TABLET PO (08:25)
[2025-04-27] MEDS: METOPROLOL SUCCINATE EXT REL 50 MG TABCR PO (08:26)
[2025-04-27] MEDS: FUROSEMIDE 40 MG TABLET PO (08:26)
[2025-04-27] MEDS: RIVASTIGMINE TARTRATE 4.6 MG PATCH 1 PATCH TRANSDERM (08:27)
[2025-04-27] MEDS: MORPHINE SULFATE (*CRX) 4 MG/ML INJ 2 MG IV PUSH ×2 (09:59→20:26)
--- NOTE | 2025-04-27 10:35 | ECG_ITS ---
Test Date: 2025-04-27 11:21:56 Measurements Intervals [place] Rate: 60 P: 45 [place]: 235 QRS: -36 QRSD: 105 T: -14 QT: 496 QTc: 498 Interpretive Statements SINUS RHYTHM WITH FIRST DEGREE AV BLOCK WITH OCCASIONAL SUPRAVENTRICULAR PREMATURE COMPLEXES LOW QRS VOLTAGE IN PRECORDIAL LEADS PATTERN CONSISTENT WITH PULMONARY DISEASE INFERIOR MYOCARDIAL INFARCTION , OF INDETERMINATE AGE Electronically Signed On 04-27-2025 12:43:19 [facility] by Leo Childs D.O
--- NOTE | 2025-04-27 11:19 | PCSTNOTE ---
Please refer to the Modified Barium Swallow Evaluation in the EMR. The above pleasant, and more alert, patient was seen for a third MBS on this date; he is reportedly feeling stronger, is more oriented, and appears to be tolerating thin liquids at the bedside. The patient was seated for a lateral view. Vocal quality was strong and clear. The patient reported foot pain but jokingly stated a poem about the foot. Pt reported that he is not allowed water and wants a drink. Oral mucosa is normal; natural dentition is in good condition. The patient was seated for a lateral view and presented with 5 ml of thin liquid barium via a spoon, pudding consistency barium via a spoon, a cracker coated with barium pudding via a spoon, and uncontrolled thin liquid barium. This was presented via a cup & straw. Oral preparatory and oral phase symptoms: none. Pharyngeal phase symptoms: within functional limits; trace and very shallow laryngeal penetration occurred (with cup drink of thin liquids),(age appropriate) but cleared and no aspiration risk. Esophageal stage symptoms: none. Overall, no aspiration occurred. Impressions: Normal swallow Ability Recommendations: level 7 regular diet with level 0 regular liquids; position upright with all oral intake; occasional meal time observation is recommended. OOB is ideal No further ST is warranted at this time.
[2025-04-27 12:01] LABS: Anion Gap 3 mmol/L (4-12); Blood Urea Nitrogen 4 mg/dL (9-20); Calcium 7.9 mg/dL (8.4-10.2); Carbon Dioxide 23 mmol/L (22-30); Chloride 115 mmol/L (98-107); Estimated CRCL calculation 80 ml/min; Estimated Glomerular Filt Rate > 60; Glucose 111 mg/dL (65-110); Potassium 3.8 mmol/L (3.4-5.0); Sodium 141 mmol/L (137-145)
[2025-04-27] MEDS: DEXTROSE 5%/0.9% SOD CHL 1,000 ML 75 ML IV CONT (12:39)
--- NOTE | 2025-04-27 12:55 | P.PNCA_ITS ---
Progress Note: A&P Assessment and Plan (1) New onset a-fib: Code(s): I48.91 - Unspecified atrial fibrillation Status: Acute (2) Pulmonary embolism: Qualifiers: Pulmonary embolism type: single subsegmental (without acute cor pulmonale) Qualified Code(s): I26.93 - Single subsegmental pulmonary embolism without acute cor pulmonale Code(s): I26.99 - Other pulmonary embolism without acute cor pulmonale Status: Acute (3) Cardiomyopathy: Code(s): I42.9 - Cardiomyopathy, unspecified Status: Acute (4) Thoracic aortic aneurysm without rupture: Qualifiers: Thoracic aorta location: ascending aorta Qualified Code(s): I71.21 - Aneurysm of the ascending aorta, without rupture Code(s): I71.2 - Thoracic aortic aneurysm, without rupture Status: Acute (5) Hodgkin's lymphoma, adult: Code(s): C81.90 - Hodgkin lymphoma, unspecified, unspecified site Status: Acute (6) Congestive heart failure: Qualifiers: Heart failure type: combined systolic and diastolic Heart failure chronicity: chronic Qualified Code(s): I50.42 - Chronic combined systolic (congestive) and diastolic (congestive) heart failure Code(s): I50.9 - Heart failure, unspecified Status: Acute (7) Sepsis: Code(s): A41.9 - Sepsis, unspecified organism Status: Acute (8) AMS (altered mental status): Code(s): R41.82 - Altered mental status, unspecified Status: Acute (9) DVT (deep venous thrombosis): Code(s): I82.409 - Acute embolism and thrombosis of unspecified deep veins of unspecified lower extremity Status: Acute Plan Impression: 1. Paroxysmal atrial fibrillation with rapid ventricular response. Currently significant improvement of the heart rate. Currently on oral amiodarone. Heart rate is 65 with irregularly irregular heartbeat. 2. Recent diagnosis of DVT involving her right leg. Right leg has swelling and pain which has improved. Follow-up CT scan of the leg did not show worsening of the hematoma. Seen by surgery. Patient had IVC filter and subQ heparin has been discontinued. 3. CT scan of the chest positive for stable ascending aorta aneurysm measuring at 5.8 cm. Patient does not want any surgery at this time. 4. Large hematoma of the posterior compartment of the right leg without active contrast extravasation on previous CT on 03/19/2025. Bilateral Roman cyst noted. Follow-up CT scan of the leg shows stability without worsening of the hematoma. 5. Morbid obesity. Patient weighs 115.5 kg. 6. Acute mental status changes with garbled speech. Significantly improved. CT scan of the head is negative for any acute intracranial process. Slowly improving. 7. Severe hypokalemia admission at 2.7 now increased to 3.1 per. Patient is on Aldactone as well as potassium supplement. 8. Elevated proBNP at 3820. Troponin I was 0.05 and remained stable without suggestion for acute coronary syndrome. Recommendations: #. Surgical consult for right leg hematoma and possible need for evacuation. Patient has severe pain in the right leg. Follow-up CT scan of the right leg does not show significant change from previous CT scan. Patient continues to have swelling and pain. #. Currently heart rate 70 per minute and blood pressure is 138/60. Continue present medical management. - patient on oral amiodarone 400 mg p.o. b.i.d. for 7 days followed by 200 mg daily #. Echocardiogram shows technically difficult echo with preserved systolic fu nction at 60-65% and atrial fibrillation. #. Current medications reviewed. Currently on full-dose Lovenox, add metoprolol succinate 50 mg daily, Aldactone 25 mg daily and Lasix 40 mg daily for chronic diastolic heart failure. Full-dose Lovenox discontinued after IVC filter. #. Hematology and general surgery consult noted. IVC filter recommended by hematology service due to worsening hemoglobin. Status post placement of IVC filter on 04/24/2025. Continue present medical management and increase activity as tolerated. Discontinue full-dose subcu Lovenox when ready per Hematology Service. From Cardiology point of view patient appears to be improved with increase mentation, controlled heart rate of. Recommend discharging him to rehab. Discussed with the primary hospitalist. Cardiology will sign off as of 04/27/2025. Subjective Date/time seen: 04/27/25 12:55 Interval history: Review of HPI: 74-year-old gentleman admitted on 04/20/2025 with atrial fibrillation and rapid ventricular response at the her her in 35 per minute. Patient has significant cardiac problems including thoracic aortic aneurysm measuring 5.8 cm, history of pulmonary embolism/DVT on therapeutic Lovenox. Patient was recently diagnosed with DVT on the right leg and subsequently discharged on subQ Lovenox. Patient was subsequently treated at [facility] a right leg DVT and suspicion for compartment syndrome. The surgery was done and patient discharged on anticoagulation. Patient also has history of congestive heart failure and obstructive sleep apnea. Patient apparently had mental status changes and weakness for which she was transferred back to the hospital emergency room. Patient was lethargic with garbled speech from [facility]. Initial workup in the emergency room reveal low blood pressure 92/60 artery was 136 per minute patient was afebrile with 98% saturation. Patient was more awake alert in the emergency room but continued to have mildly garbled speech. Ad mitting laboratory data creatinine 1.36, BNP was 3820. Urine had 3+ protein urea and potassium was 3.0. Patient was subsequently started on amiodarone drip to help with the heart rate. CT scan of the head was negative for any acute changes. 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 Subjective; Patient was examined at the bedside. Patient is awake and alert tone appears to be comfortable. Continues to have swelling of the right cough and tenderness and subjective pain. Discussed with nursing staff to apply Tee wrap with moderate compression. Review of Systems Review of Systems: Twelve point review of system was completed. Pertinent positive and negative findings per HPI. Constitutional negative of fever or weight loss. Head and neck negative. Cardiovascular negative for chest pain or shortness of breath. Pulmonary system negative for wheezing or rhonchi. Right leg positive for swelling in moderate to severe pain. Exam Narrative: Patient was examined at the bedside. Patient is sitting in the chair and her complaints of right leg pain. Breathing is stable. Patient is more awake and alert today answering questions. Head and neck examination is unremarkable. Neck is supple. There is no JVD or carotid bruit. Lungs reveal decreased air entry bilaterally. Heart sounds reveal normal S1-S2. Her rhythm is irregularly irregular. Abdomen is obese without hepatosplenomegaly. Bowel sounds present throughout Extremities revealed swelling of the right leg os patient did cough up with localized tenderness. There is no ecchymosis or bluish discoloration. Neurological examination is intact. Objective Data Vital Signs Vital Signs: Vital Signs - 24 hr 04/26/25 14:00 04/26/25 15:33 04/26/25 16:00 Temperature 36.3 C L Pulse Rate 78 60 67 Respiratory Rate 16 Blood Pressure 136/56 L Pulse Oximetry 98 Oxygen Delivery 04/26/25 18:00 04/26/25 18:08 04/26/25 19:31 Temperature 36.7 C Pulse Rate 75 76 60 Respiratory Rate 16 Blood Pressure 126/56 L Pulse Oximetry 96 Oxygen Delivery 04/26/25 20:00 04/26/25 20:00 04/26/25 23:25 Temperature Pulse Rate 68 Respiratory Rate Blood Pressure Pulse Oximetry 97 Oxygen Delivery Room Air [employer] 04/27/25 00:00 04/27/25 03:43 04/27/25 04:00 Temperature 36.9 C Pulse Rate 65 61 60 Respiratory Rate 16 Blood Pressure 123/54 L Pulse Oximetry 97 Oxygen Delivery 04/27/25 07:58 04/27/25 08:00 04/27/25 08:25 Temperature 37.3 C Pulse Rate 65 64 72 Respiratory Rate 18 Blood Pressure 138/60 Pulse Oximetry 99 Oxygen Delivery 04/27/25 08:26 Temperature Pulse Rate 72 Respiratory Rate Blood Pressure Pulse Oximetry Oxygen Delivery Intake/Output Intake/Output: Intake & Output 04/24/25 04/25/25 04/26/25 04/27/25 23:59 23:59 23:59 23:59 Intake Total 2525.0 1110 2390 1040 Output Total 1344 121 9148 Balance 1250.0 810 1240 1040 Meds/Results Medications: Active Medications Generic Name Dose Route Start Last Admin Trade Name Freq PRN Reason Stop Dose Admin Acetaminophen 650 mg 04/19/25 21:40 04/24/25 20:08 Acetaminophen 325 Mg Tablet PO 650 mg Q4H PRN Administration Mild Pain (1-3) or Fever Amiodarone HCl 400 mg 04/24/25 17:00 04/27/25 08:25 Amiodarone Hcl 200 Mg Tablet PO 05/01/25 09:01 400 mg BID ANGELICA Administration Amiodarone HCl 200 mg 05/02/25 08:00 Amiodarone Hcl 200 Mg Tablet PO DAILY@0800 ANGELICA Furosemide 40 mg 04/25/25 09:00 04/27/25 08:26 Furosemide 40 Mg Tablet PO 40 mg DAILY ANGELICA Administration Dextrose/Sodium Chloride 1,000 mls @ 75 mls/hr 04/20/25 15:50 04/27/25 12:39 Dextrose 5% Sodium Chloride 0.9% IV CONT 75 mls/hr .[id number] ANGELICA Administration Metoprolol Succinate 50 mg 04/24/25 12:15 04/27/25 08:26 Metoprolol Succinate Ext Rel 50 Mg Tabcr PO 50 mg QAM ANGELICA Administration Morphine Sulfate 2 mg 04/27/25 09:05 04/27/25 09:59 Morphine Sulfate (*Crx) 4 Mg/Ml Inj IV PUSH 2 mg Q6HR PRN Administration Pain Rated 7-10 Ondansetron HCl 4 mg 04/19/25 21:40 Ondansetron Inj 4 Mg/2 Ml Vial IV PUSH Q4H PRN Nausea Potassium Chloride 20 meq 04/27/25 09:00 04/27/25 08:25 Potassium Chloride 20 Meq Er Tablet PO 20 meq DAILY ANGELICA Administration Rivastigmine 1 patch 04/20/25 09:00 04/27/25 08:27 Rivastigmine Tartrate 4.6 Mg Patch TRANSDERM 1 patch DAILY ANGELICA Administration Rosuvastatin Calcium 40 mg 04/26/25 18:00 04/26/25 16:35 Rosuvastatin 20 Mg Tablet PO 40 mg EVENING ANGELICA Administration Spironolactone 50 mg 04/27/25 09:00 04/27/25 08:25 Spironolactone 50 Mg Tablet PO 50 mg QAM ANGELICA Administration Radiology Results: ITS Impressions Chest X-Ray 04/19/25 18:25 IMPRESSION: 1. Suspect left perihilar airspace disease. Can consider PA and lateral films with deep inspiration. Head CT 04/19/25 20:34 IMPRESSION: No acute intracranial hemorrhage or extra axial fluid collections. All CT scans at this facility are performed using low dose modulation techniques as appropriate to perform exam including the following: automated exposure control; use of iterative reconstruction technique; adjustment of the mA and/or kV according to patient size (this includes techniques or standardized protocols for targeted exams where dose is matched to indication/reason for exam). Chest/Abdomen/Pelvis CTA 04/19/25 20:37 IMPRESSION: CHEST- 1. Mildly enlarged lymph nodes left axilla. Malignancy not excluded. 2. 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 Recommend surgical consultation. 3. No PE or other acute cardiopulmonary findings. ABDOMEN/PELVIS- 1. No acute abdominopelvic findings. Lower Extremity CT 04/24/25 13:03 IMPRESSION: 1. No significant change in size of a 22.6 x 11.9 x 5.2 cm complex fluid collection in the posterior compartment of the right calf most likely an evolving hematoma. Differential would include abscess in the appropriate clinical setting. 2. Mild patellofemoral osteoarthritis with persistent nonspecific small right knee joint effusion. Modified Barium Swallow 04/27/25 10:09 IMPRESSION: Transient flash laryngeal penetration without aspiration. Please correlate with speech pathologist findings and specific feeding recommendations. Labs Labs: Laboratory Results - last 24 hr 04/26/25 04/26/25 04/27/25 14:39 22:05 04:14 WBC 8.6 RBC 3.28 L Hgb 8.9 L Hct 29.2 L MCV 89.0 MCH 27.1 MCHC 30.5 L RDW 16.8 H Plt Count 224 MPV 10.0 Immature Gran % (Auto) 5.7 H Neut % (Auto) 69.5 Lymph % (Auto) 9.7 L [place] % (Auto) 8.4 Eos % (Auto) 5.8 H Baso % (Auto) 0.9 Lymph # (Auto) 0.83 L [place] # (Auto) 0.7 H Eos # (Auto) 0.5 H Baso # (Auto) 0.1 Abs Immat Gran (auto) 0.49 H Absolute Neuts (auto) 6.0 Absolute Nucleated RBC 0.000 Band Neutrophils % Not Reportable Nucleated RBC % 0.0 Platelet Estimate Adequate Hypochromasia 1+ Anisocytosis Occasional Ovalocytes Occasional Schistocytes None seen Sodium 141 141 141 Potassium 3.2 L 3.2 L 3.0 L Chloride 117 H 116 H 115 H Carbon Dioxide 22 22 24 Anion Gap 2 L 3 L 2 L BUN 7 L 6 L 5 L Creatinine 0.88 0.84 0.79 Estim Creat Clear Calc 78 81 86 Estimated GFR > 60 > 60 > 60 Glucose 108 106 109 Calcium 8.0 L 7.7 L 7.7 L Magnesium 1.8 1.9 Total Bilirubin 0.6 AST 26 ALT 27 Alkaline Phosphatase 81 Total Protein 5.1 L Albumin 2.5 L 04/27/25 11:41 WBC RBC Hgb Hct MCV MCH MCHC RDW Plt Count MPV Immature Gran % (Auto) Neut % (Auto) Lymph % (Auto) [place] % (Auto) Eos % (Auto) Baso % (Auto) Lymph # (Auto) [place] # (Auto) Eos # (Auto) Baso # (Auto) Abs Immat Gran (auto) Absolute Neuts (auto) Absolute Nucleated RBC Band Neutrophils % Nucleated RBC % Platelet Estimate Hypochromasia Anisocytosis Ovalocytes Schistocytes Sodium 141 Potassium 3.8 Chloride 115 H Carbon Dioxide 23 Anion Gap 3 L BUN 4 L Creatinine 0.85 Estim Creat Clear Calc 80 Estimated GFR > 60 Glucose 111 H Calcium 7.9 L Magnesium Total Bilirubin AST ALT Alkaline Phosphatase Total Protein Albumin
--- NOTE | 2025-04-27 13:26 | PM.IMPN ---
Progress Note: A&P Assessment and Plan (1) New onset a-fib: Code(s): I48.91 - Unspecified atrial fibrillation Status: Acute Assessment and Plan: - new onset of AFib. -ECHO EF 60-65% and diastolic dysfunction indeterminate -the patient has already been on Lovenox, currently held due to hematoma -Isai Vasc score is 5. cardiology recommends oral amiodarone 400 mg p.o. b.i.d. for 7 days followed by 200 mg daily (2) Congestive heart failure: Qualifiers: Heart failure type: combined systolic and diastolic Heart failure chronicity: chronic Qualified Code(s): I50.42 - Chronic combined systolic (congestive) and diastolic (congestive) heart failure Code(s): I50.9 - Heart failure, unspecified Status: Acute Assessment and Plan: ECHO showed EF 60-65%, diastolic dysfunction indeterminate -his Entresto has been on hold at this time as he is not awake enough to take p.o. medications. -resume spironolactone when patient is able to take p.o. well -troponin is 0.050 which could be elevated from heart failure or from the AFib RVR. Continue to monitor troponins. demand ischemia 04/21/2025 (3) HTN (hypertension): Qualifiers: Hypertension type: essential hypertension Qualified Code(s): I10 - Essential (primary) hypertension Code(s): I10 - Essential (primary) hypertension Status: Acute Assessment and Plan: -the patient is currently on amiodarone. -Entresto is on hold at this time -his current blood pressure is 103/54. (4) Mixed hyperlipidemia: Code(s): E78.2 - Mixed hyperlipidemia Status: Acute Assessment and Plan: -patient is not awake enough to take p.o. medication at this time. Resume home medication of rosuvastatin when able. (5) History of deep vein thrombosis: Code(s): Z86.718 - Personal history of other venous thrombosis and embolism Status: Acute Assessment and Plan: -off anticoagulation due to acute hematoma 04/25: Status post IVC filter placement from the left side by surgery. (6) Hodgkin's lymphoma, adult: Code(s): C81.90 - Hodgkin lymphoma, unspecified, unspecified site Status: Acute Assessment and Plan: -Hematology-Oncology consultation greatly appreciated. His CT scan does show slightly enlarged axillary lymph node. Malignancy not excluded. (7) Leukocytosis: Code(s): D72.829 - Elevated white blood cell count, unspecified Status: Acute Assessment and Plan: -his white count is up to 21.6. -blood cultures are pending -the patient was empirically started on cefepime and vancomycin. -hematology/oncology has been consulted as well. -daily CBCs resolved (8) JONAH (obstructive sleep apnea): Code(s): G47.33 - Obstructive sleep apnea (adult) (pediatric) Status: Acute Assessment and Plan: -home settings for CPAP/BiPAP (9) Hematoma of right lower extremity: Code(s): S80.11XA - Contusion of right lower leg, initial encounter Status: Acute Assessment and Plan: Groin hematoma likely due to anticoagulation without concern for compartment syndrome per surgery. Surgery discussed with Hematology in a group for IVC filter placement which was discussed with family. Anticoagulation has been discontinued given this hematoma. 04/25: [employer] had continued concern for hematoma, surgery had not commented on it, patient is currently off anticoagulation, CT scan was urgently ordered which showed no worsening of hematoma. Calf pain has been improving as well. Hematology agrees to discontinuation of anticoagulation given IVC filter placement. 04/26: Will need to reach out to surgery course to further management of leg hematoma, likely no further management from their point of view (10) Thoracic aortic aneurysm without rupture: Qualifiers: Thoracic aorta location: ascending aorta Qualified Code(s): I71.21 - Aneurysm of the ascending aorta, without rupture Code(s): I71.2 - Thoracic aortic aneurysm, without rupture Status: Acute Assessment and Plan: 5.8 cm aortic aneurysm on imaging, patient is aware of this and does not wish to pursue operative management at this time given significant risk. He is aware of risks of not operating. Family/POA is on board. (11) Hypokalemia: Code(s): E87.6 - Hypokalemia Status: Acute Assessment and Plan: Significant hypokalemia this morning at 2.7, aggressive repletion was done, repeat potassium only improved to 3.0. Continued repletion 40 mg IV potassium administered, routine follow-up ordered Continues of hypokalemia, magnesium was administered and IV potassium chloride was administered as well, potassium is improving Continue monitoring potassium after administration of repletion dose Plan Patient has no problems with swallowing which after repeated barium swallow today appear to be resolved and patient has been restored to regular diet. Once potassium has been stable for 24 hours can discharge. Surgery has been contacted in regards to hematoma however likely recommendation will be conservative management this time. DVT prophylaxis-IVC filter in place Subjective Date/time seen: 04/27/25 13:26 Interval history: This is a 74-year-old male patient who had recently was transferred to [facility] on 03/19/2025 for concerned compartment syndrome with the DVT. No intervention was performed at that time. He is at [facility]. The patient is currently on subQ Lovenox. Has history of sleep apnea and congestive heart failure. The patient was brought to the emergency room for altered mental status and weakness his symptoms have been ongoing for 6 days but recently worsened over the last 2 days. The patient is only orientated to himself and has garbled speech. His family was at the bedside earlier but have left since ER. His white count is noted to be 21.6. His H&H is 12.5 and 40.2 but above his baseline. His BUN is 24 which is near his baseline. And a creatinine of 1.36 with a normal baseline. His troponin is 0.050. His BNP was noted to be 3820. Urine has 3+ protein, 1+ ketones, 2+ blood. His potassium was 3.0. His EKG was read as AFib with RVR. His blood pressure was 105/57. He was started on an amiodarone drip. Head CT was read as no acute intracranial hemorrhage or extra axillo florid collections. Chest x-ray was read as suspect left hip perihilar airspace disease. Consider PA and lateral films with deep inspiration. CTA was read as1. Mildly enlarged lymph nodes left axilla. Malignancy not excluded. 2. 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 Recommend surgical consultation. 3. No PE or other acute cardiopulmonary findings. The patient was started on cefepime and vancomycin. The patient is being admitted to observation status on the date of service of 04/20/2025 Review of Systems Review of Systems: ROS unobtainable: Yes unobtainable due to medical condition and unobtainable due to mental status Constitutional: Constitutional: Reports as per HPI Eyes: Eyes: Reports as per HPI and Reports no additional eye complaints ENT: Reports Normal hearing present Cardiovascular: Cardiovascular: Reports no additional cardiovascular complaints Respiratory: Respiratory: Reports as per HPI Gastrointestinal: Gastrointestinal: Reports as per HPI and Reports no additional gastrointestinal complaints Musculoskeletal: Musculoskeletal: Reports no additional musculoskeletal complaints Integumentary/Breasts: Skin/Breast: Reports system reviewed and no additional complaints, except as docu Neurologic: Reports system reviewed and no additional complaints, except as documented and Reports Normal hearing present Psychiatric: Psychiatric: Reports no additional psychiatric complaints and Reports as per HPI Hematologic/Lymphatic: Hematologic/Lymphatic: Reports no additional hematologic/lymphatic complaints Allergic/Immunologic: Allergic/Immunologic: Reports no additional allergic/immunologic complaints Exam Const: General: cooperative, no acute distress, well developed, awake, Physically active, average body habitus and well nourished Nutritional Appearance: well nourished Orientation/consciousness: oriented to person HENMT: Head: normal to inspection, No palpable skull fracture present and normocephalic Eyes: General: appearance normal, both eyes and all related structures Alignment and Position: alignment normal Periorbital: periorbital findings normal Eyelids: eyelids normal Conjunctivae: conjunctivae normal Sclera: sclerae normal Cornea: corneas normal Pupils: Equal, round and reactive pupils present and Pupil accommodation reflex normal EOM: EOMs intact bilaterally Neck: Neck: normal visual inspection Chest: Chest palpation & inspection: normal inspection of the chest Resp: Effort & Inspection: normal respiratory effort Auscultation: clear to auscultation bilaterally Cardio: Palpation: normal PMI Rate: regular rate Rhythm: regular rhythm Heart sounds: S1 normal heart sound present and S2 normal heart sound present Peripheral pulses: Peripheral pulses 2+ throughout GI: Inspection: normal to inspection Auscultation: normal bowel sounds Rectal Exam: deferred Back/Spine/Pelvis: Thoracic/Lumbar Spine: thoracic and lumbar spine normal to inspection Skin: General skin exam: normal color Lesions: no lesions Rashes: no rashes Trauma: no lacerations or abrasions Wounds: no wounds Hair: normal Nails: normal Neuro: General: oriented to person Cranial nerves: Yes Equal, round and reactive pupils present and Yes Normal hearing present Extrem: General: normal to inspection Right upper extremity: normal to inspection and shoulder/upper arm Left upper extremity: normal to inspection and shoulder/upper arm Other: I lower extremity with persistent edema and pain with induration palpable at the calf Psych: Appearance: grossly normal Mental Status: mental status grossly normal Objective Data Vital Signs Vital Signs: Vital Signs - 24 hr 04/26/25 14:00 04/26/25 15:33 04/26/25 16:00 Temperature 97.4 F L Pulse Rate 78 60 67 Respiratory Rate 16 Blood Pressure 136/56 L Pulse Oximetry 98 Oxygen Delivery 04/26/25 18:00 04/26/25 18:08 04/26/25 19:31 Temperature 98.0 F Pulse Rate 75 76 60 Respiratory Rate 16 Blood Pressure 126/56 L Pulse Oximetry 96 Oxygen Delivery 04/26/25 20:00 04/26/25 20:00 04/26/25 23:25 Temperature Pulse Rate 68 Respiratory Rate Blood Pressure Pulse Oximetry 97 Oxygen Delivery Room Air Autopap 04/27/25 00:00 04/27/25 03:43 04/27/25 04:00 Temperature 98.4 F Pulse Rate 65 61 60 Respiratory Rate 16 Blood Pressure 123/54 L Pulse Oximetry 97 Oxygen Delivery 04/27/25 07:58 04/27/25 08:00 04/27/25 08:25 Temperature 99.1 F Pulse Rate 65 64 72 Respiratory Rate 18 Blood Pressure 138/60 Pulse Oximetry 99 Oxygen Delivery 04/27/25 08:26 04/27/25 12:00 Temperature Pulse Rate 72 70 Respiratory Rate Blood Pressure Pulse Oximetry Oxygen Delivery Intake/Output Intake/Output: Intake & Output 04/24/25 04/25/25 04/26/25 04/27/25 23:59 23:59 23:59 23:59 Intake Total 2525.0 1110 2390 1040 Output Total 2942 425 3248 Balance 1250.0 810 1240 1040 Meds/Results Medications: Active Medications Generic Name Dose Route Start Last Admin Trade Name Freq PRN Reason Stop Dose Admin Acetaminophen 650 mg 04/19/25 21:40 04/24/25 20:08 Acetaminophen 325 Mg Tablet PO 650 mg Q4H PRN Administration Mild Pain (1-3) or Fever Amiodarone HCl 400 mg 04/24/25 17:00 04/27/25 08:25 Amiodarone Hcl 200 Mg Tablet PO 05/01/25 09:01 400 mg BID ANGELICA Administration Amiodarone HCl 200 mg 05/02/25 08:00 Amiodarone Hcl 200 Mg Tablet PO DAILY@0800 ANGELICA Furosemide 40 mg 04/25/25 09:00 04/27/25 08:26 Furosemide 40 Mg Tablet PO 40 mg DAILY ANGELICA Administration Dextrose/Sodium Chloride 1,000 mls @ 75 mls/hr 04/20/25 15:50 04/27/25 12:39 Dextrose 5% Sodium Chloride 0.9% IV CONT 75 mls/hr .[id number] ANGELICA Administration Metoprolol Succinate 50 mg 04/24/25 12:15 04/27/25 08:26 Metoprolol Succinate Ext Rel 50 Mg Tabcr PO 50 mg QAM ANGELICA Administration Morphine Sulfate 2 mg 04/27/25 09:05 04/27/25 09:59 Morphine Sulfate (*Crx) 4 Mg/Ml Inj IV PUSH 2 mg Q6HR PRN Administration Pain Rated 7-10 Ondansetron HCl 4 mg 04/19/25 21:40 Ondansetron Inj 4 Mg/2 Ml Vial IV PUSH Q4H PRN Nausea Potassium Chloride 20 meq 04/27/25 09:00 04/27/25 08:25 Potassium Chloride 20 Meq Er Tablet PO 20 meq DAILY ANGELICA Administration Rivastigmine 1 patch 04/20/25 09:00 04/27/25 08:27 Rivastigmine Tartrate 4.6 Mg Patch TRANSDERM 1 patch DAILY ANGELICA Administration Rosuvastatin Calcium 40 mg 04/26/25 18:00 04/26/25 16:35 Rosuvastatin 20 Mg Tablet PO 40 mg EVENING ANGELICA Administration Spironolactone 50 mg 04/27/25 09:00 04/27/25 08:25 Spironolactone 50 Mg Tablet PO 50 mg QAM ANGELICA Administration Radiology Results: ITS Impressions Chest X-Ray 04/19/25 18:25 IMPRESSION: 1. Suspect left perihilar airspace disease. Can consider PA and lateral films with deep inspiration. Head CT 04/19/25 20:34 IMPRESSION: No acute intracranial hemorrhage or extra axial fluid collections. All CT scans at this facility are performed using low dose modulation techniques as appropriate to perform exam including the following: automated exposure control; use of iterative reconstruction technique; adjustment of the mA and/or kV according to patient size (this includes techniques or standardized protocols for targeted exams where dose is matched to indication/reason for exam). Chest/Abdomen/Pelvis CTA 04/19/25 20:37 IMPRESSION: CHEST- 1. Mildly enlarged lymph nodes left axilla. Malignancy not excluded. 2. 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 Recommend surgical consultation. 3. No PE or other acute cardiopulmonary findings. ABDOMEN/PELVIS- 1. No acute abdominopelvic findings. Lower Extremity CT 04/24/25 13:03 IMPRESSION: 1. No significant change in size of a 22.6 x 11.9 x 5.2 cm complex fluid collection in the posterior compartment of the right calf most likely an evolving hematoma. Differential would include abscess in the appropriate clinical setting. 2. Mild patellofemoral osteoarthritis with persistent nonspecific small right knee joint effusion. Modified Barium Swallow 04/27/25 10:09 IMPRESSION: Transient flash laryngeal penetration without aspiration. Please correlate with speech pathologist findings and specific feeding recommendations. Labs Labs: Laboratory Results - last 24 hr 04/26/25 04/26/25 04/27/25 14:39 22:05 04:14 WBC 8.6 RBC 3.28 L Hgb 8.9 L Hct 29.2 L MCV 89.0 MCH 27.1 MCHC 30.5 L RDW 16.8 H Plt Count 224 MPV 10.0 Immature Gran % (Auto) 5.7 H Neut % (Auto) 69.5 Lymph % (Auto) 9.7 L Cuming % (Auto) 8.4 Eos % (Auto) 5.8 H Baso % (Auto) 0.9 Lymph # (Auto) 0.83 L Cuming # (Auto) 0.7 H Eos # (Auto) 0.5 H Baso # (Auto) 0.1 Abs Immat Gran (auto) 0.49 H Absolute Neuts (auto) 6.0 Absolute Nucleated RBC 0.000 Band Neutrophils % Not Reportable Nucleated RBC % 0.0 Platelet Estimate Adequate Hypochromasia 1+ Anisocytosis Occasional Ovalocytes Occasional Schistocytes None seen Sodium 141 141 141 Potassium 3.2 L 3.2 L 3.0 L Chloride 117 H 116 H 115 H Carbon Dioxide 22 22 24 Anion Gap 2 L 3 L 2 L BUN 7 L 6 L 5 L Creatinine 0.88 0.84 0.79 Estim Creat Clear Calc 78 81 86 Estimated GFR > 60 > 60 > 60 Glucose 108 106 109 Calcium 8.0 L 7.7 L 7.7 L Magnesium 1.8 1.9 Total Bilirubin 0.6 AST 26 ALT 27 Alkaline Phosphatase 81 Total Protein 5.1 L Albumin 2.5 L 04/27/25 11:41 WBC RBC Hgb Hct MCV MCH MCHC RDW Plt Count MPV Immature Gran % (Auto) Neut % (Auto) Lymph % (Auto) Cuming % (Auto) Eos % (Auto) Baso % (Auto) Lymph # (Auto) Cuming # (Auto) Eos # (Auto) Baso # (Auto) Abs Immat Gran (auto) Absolute Neuts (auto) Absolute Nucleated RBC Band Neutrophils % Nucleated RBC % Platelet Estimate Hypochromasia Anisocytosis Ovalocytes Schistocytes Sodium 141 Potassium 3.8 Chloride 115 H Carbon Dioxide 23 Anion Gap 3 L BUN 4 L Creatinine 0.85 Estim Creat Clear Calc 80 Estimated GFR > 60 Glucose 111 H Calcium 7.9 L Magnesium Total Bilirubin AST ALT Alkaline Phosphatase Total Protein Albumin Quality If No VTE Prophylaxis Answer both mechanical and pharmacologic: Reason no mechanical VTE proph: medical contraindication Reason no pharmacologic proph: low risk/not indicated (IVC filter) Hospitalist MIPS Advance Care Plan I have confirmed that the patient's Advanced Care Plan is present, code status is documented, or surrogate decision maker is listed in patient medical record.: Yes Medication Reconciliation I have utilized all available resources to obtain, update and review the patients current medications (includes all prescriptions, OTC, herbals, cannabis, and nutritional supplements).: Yes
--- NOTE | 2025-04-27 14:39 | PC.NURSE ---
Pt transferred to room 245 at 1435. Report given to DEWAYNE Cadet.
[2025-04-27] MEDS: ROSUVASTATIN 20 MG TABLET 40 MG PO (17:17)
[2025-04-28] VITALS (10 sets, daily range): BP systolic 127–133; BP diastolic 59–88; PULSE 58–65; RESP 19–20; TEMP 36.4–36.6; O2SAT 93–97
[2025-04-28] MEDS: DEXTROSE 5%/0.9% SOD CHL 1,000 ML 75 ML IV CONT ×2 (02:22→21:30)
[2025-04-28] MEDS: MORPHINE SULFATE (*CRX) 4 MG/ML INJ 2 MG IV PUSH ×3 (02:23→19:40)
[2025-04-28 05:28] LABS: Hematocrit 29.4 % (42.0-52.0); Hemoglobin 8.8 g/dL (14.0-18.0); Immature Granulocyte Percent A 4.7 % (0-0.5); Lymphocytes Absolute Auto 0.90 K/mm3 (0.9-3.2); Mean Corpuscular HGB Conc 29.9 g/dl (32-36); Mean Corpuscular Hemoglobin 26.8 pg (26-34); Mean Corpuscular Volume 89.6 fl (80-100); Nucleated Red Blood Cells Absolute Auto 0.000 K/mm3 (0.0-0.012); Nucleated Red Blood Cells Perc 0.0 % (0.0-0.2); Platelet Count Result 219 k/mm3 (150-375); Red Blood Count 3.28 M/mm3 (4.6-6.20); White Blood Count 9.3 K/mm3 (4.5-10.0)
[2025-04-28 05:53] LABS: Alanine Aminotransferase 22 U/L (6-50); Albumin Level 2.5 g/dL (3.5-5.1); Alkaline Phosphatase 76 U/L (38-126); Anion Gap 2 mmol/L (4-12); Aspartate Amino Transferase 24 U/L (17-59); Bilirubin,Total 0.5 mg/dL (0.2-1.3); Blood Urea Nitrogen 4 mg/dL (9-20); Calcium 7.5 mg/dL (8.4-10.2); Carbon Dioxide 25 mmol/L (22-30); Chloride 112 mmol/L (98-107); Estimated CRCL calculation 82 ml/min; Estimated Glomerular Filt Rate > 60; Glucose 108 mg/dL (65-110); Potassium 3.0 mmol/L (3.4-5.0); Sodium 139 mmol/L (137-145); Total Protein 5.1 g/dL (6.3-8.2)
[2025-04-28 05:57] LABS: Anisocytosis 1+; Hypochromasia 1+; Ovalocytes 1+; Polychromasia Occasional; Schistocytes None Seen
[2025-04-28] MEDS: POTASSIUM CHLORIDE 20 MEQ ER TABLET PO (09:35)
[2025-04-28] MEDS: FUROSEMIDE 40 MG TABLET PO (09:36)
[2025-04-28] MEDS: RIVASTIGMINE TARTRATE 4.6 MG PATCH 1 PATCH TRANSDERM (09:36)
[2025-04-28] MEDS: SPIRONOLACTONE 50 MG TABLET PO (09:36)
[2025-04-28] MEDS: AMIODARONE HCL 200 MG TABLET 400 MG PO ×2 (09:36→17:21)
[2025-04-28] MEDS: METOPROLOL SUCCINATE EXT REL 50 MG TABCR PO (09:36)
[2025-04-28] MEDS: POTASSIUM CHLORIDE INJ 40 MEQ in SODIUM CHLORIDE 0.9% IV 500 ML 130 MEQ IVPB (09:37)
--- NOTE | 2025-04-28 11:07 | P.PNIM_ITS ---
Progress Note: A&P Assessment and Plan (1) New onset a-fib: Code(s): I48.91 - Unspecified atrial fibrillation Status: Acute Assessment and Plan: - new onset of AFib. -ECHO EF 60-65% and diastolic dysfunction indeterminate -the patient has already been on Lovenox, currently held due to hematoma -Isai Vasc score is 5. cardiology recommends oral amiodarone 400 mg daily, transition to 200mg on 05/02 (2) Congestive heart failure: Qualifiers: Heart failure type: combined systolic and diastolic Heart failure chronicity: chronic Qualified Code(s): I50.42 - Chronic combined systolic (congestive) and diastolic (congestive) heart failure Code(s): I50.9 - Heart failure, unspecified Status: Acute Assessment and Plan: ECHO showed EF 60-65%, diastolic dysfunction indeterminate -his Entresto has been on hold at this time but BP is still soft, particularly DBP, so cautiously resume if BP improves and tolerates -resume spironolactone when BP tolerates as well -troponin is 0.050 which could be elevated from heart failure or from the AFib RVR. Demand ischemia 04/21/2025 (3) HTN (hypertension): Qualifiers: Hypertension type: essential hypertension Qualified Code(s): I10 - Essential (primary) hypertension Code(s): I10 - Essential (primary) hypertension Status: Acute Assessment and Plan: -the patient is currently on amiodarone. -Entresto is on hold at this time -his current blood pressure is 103/54. (4) Mixed hyperlipidemia: Code(s): E78.2 - Mixed hyperlipidemia Status: Acute Assessment and Plan: Resume home medication of rosuvastatin when able. (5) History of deep vein thrombosis: Code(s): Z86.718 - Personal history of other venous thrombosis and embolism Status: Acute Assessment and Plan: -off anticoagulation due to acute hematoma 04/25: Status post IVC filter placement from the left side by surgery. (6) Hodgkin's lymphoma, adult: Code(s): C81.90 - Hodgkin lymphoma, unspecified, unspecified site Status: Acute Assessment and Plan: -Hematology-Oncology consultation greatly appreciated. His CT scan does show slightly enlarged axillary lymph node. Malignancy not excluded. (7) Leukocytosis: Code(s): D72.829 - Elevated white blood cell count, unspecified Status: Acute Assessment and Plan: -his white count is up to 21.6. -blood cultures are pending -the patient was empirically started on cefepime and vancomycin. -hematology/oncology has been consulted as well. -daily CBCs resolved (8) JONAH (obstructive sleep apnea): Code(s): G47.33 - Obstructive sleep apnea (adult) (pediatric) Status: Acute Assessment and Plan: -home settings for CPAP/BiPAP (9) Hematoma of right lower extremity: Code(s): S80.11XA - Contusion of right lower leg, initial encounter Status: Acute Assessment and Plan: Groin hematoma likely due to anticoagulation without concern for compartment syndrome per surgery. Surgery discussed with Hematology in a group for IVC filter placement which was discussed with family. Anticoagulation has been disc ontinued given this hematoma. 04/25: Irrigation Engineer had continued concern for hematoma, surgery had not commented on it, patient is currently off anticoagulation, CT scan was urgently ordered which showed no worsening of hematoma. Calf pain has been improving as well. Hematology agrees to discontinuation of anticoagulation given IVC filter placement. 11: Will need to reach out to surgery course to further management of leg hematoma, likely no further management from their point of view 11: Spoke with surgery who said drainage was not likely needed and conservative management can be done, draining only if it becomes infected or if the hematoma surfaces 11: Exam of R leg shows improvement of swelling and induration, leg is dressed and bandaged. Patient still c/o severe pain and needs regular pain control. (10) Thoracic aortic aneurysm without rupture: Qualifiers: Thoracic aorta location: ascending aorta Qualified Code(s): I71.21 - Aneurysm of the ascending aorta, without rupture Code(s): I71.2 - Thoracic aortic aneurysm, without rupture Status: Acute Assessment and Plan: 5.8 cm aortic aneurysm on imaging, patient is aware of this and does not wish to pursue operative management at this time given significant risk. He is aware of risks of not operating. Family/POA is on board. (11) Hypokalemia: Code(s): E87.6 - Hypokalemia Status: Acute Assessment and Plan: Significant hypokalemia this morning at 2.7, aggressive repletion was done, repeat potassium only improved to 3.0. Continued repletion 40 mg IV potassium administered, routine follow-up ordered 04/27: Continues to have hypokalemia, magnesium was administered and IV potassium chloride was administered as well, potassium is improving 04/28: K 3.0, IV 40mEq ordered, patient is on standing 20mEq po as well. Continue monitoring potassium after administration of repletion dose Plan Patient has no problems with swallowing which after repeated barium swallow today appear to be resolved and patient has been restored to regular diet. He says he has difficulty swallowing so will benefit from SHOE REC[employer]DITIONER to continue to be on board. Once potassium has been stable for 24 hours I will deem patient stable for discharge. Surgery has been contacted in regards to hematoma however likely recommendation will be conservative management this time. DVT prophylaxis-IVC filter in place Subjective Date/time seen: 04/28/25 11:07 Interval history: This is a 74-year-old male patient who had recently was transferred to [facility] on 03/19/2025 for concerned compartment syndrome with the DVT. No intervention was performed at that time. He is at [facility]. The patient is currently on subQ Lovenox. Has history of sleep apnea and congestive heart failure. The patient was brought to the emergency room for altered mental status and weakness his symptoms have been ongoing for 6 days but recently worsened over the last 2 days. The patient is only orientated to himself and has garbled speech. His family was at the bedside earlier but have left since ER. His white count is noted to be 21.6. His H&H is 12.5 and 40.2 but above his baseline. His BUN is 24 which is near his baseline. And a creatinine of 1.36 with a normal baseline. His troponin is 0.050. His BNP was noted to be 3820. Urine has 3+ protein, 1+ ketones, 2+ blood. His potassium was 3.0. His EKG was read as AFib with RVR. His blood pressure was 105/57. He was started on an amiodarone drip. Head CT was read as no acute intracranial hemorrhage or extra axillo florid collections. Chest x-ray was read as suspect left hip perihilar airspace disease. Consider PA and lateral films with deep inspiration. CTA was read as 1. Mildly enlarged lymph nodes left axilla. Malignancy not excluded. 2. 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 Recommend surgical consultation. 3. No PE or other acute cardiopulmonary findings. The patient was started on cefepime and vancomycin. The patient is being admitted to observation status on the date of service of 04/20/2025 Review of Systems Review of Systems: ROS unobtainable: Yes unobtainable due to medical condition and unobtainable due to mental status Constitutional: Constitutional: Reports as per HPI Eyes: Eyes: Reports as per HPI and Reports no additional eye complaints ENT: Reports Normal hearing present Cardiovascular: Cardiovascular: Reports no additional cardiovascular complaints Respiratory: Respiratory: Reports as per HPI Gastrointestinal: Gastrointestinal: Reports as per HPI and Reports no additional gastrointestinal complaints Musculoskeletal: Musculoskeletal: Reports no additional musculoskeletal complaints Integumentary/Breasts: Skin/Breast: Reports system reviewed and no additional complaints, except as docu Neurologic: Reports system reviewed and no additional complaints, except as documented and Reports Normal hearing present Psychiatric: Psychiatric: Reports no additional psychiatric complaints and Reports as per HPI Hematologic/Lymphatic: Hematologic/Lymphatic: Reports no additional hematologic/lymphatic complaints Allergic/Immunologic: Allergic/Immunologic: Reports no additional allergic/immunologic complaints Exam Const: General: cooperative, no acute distress, well developed, awake, Physically active, average body habitus and well nourished Nutritional Appearance: well nourished Orientation/consciousness: oriented to person HENMT: Head: normal to inspection, No palpable skull fracture present and normocephalic Eyes: General: appearance normal, both eyes and all related structures Alignment and Position: alignment normal Periorbital: periorbital findings normal Eyelids: eyelids normal Conjunctivae: conjunctivae normal Sclera: sclerae normal Cornea: corneas normal Pupils: Equal, round and reactive pupils present and Pupil accommodation reflex normal EOM: EOMs intact bilaterally Neck: Neck: normal visual inspection Chest: Chest palpation & inspection: normal inspection of the chest Resp: Effort & Inspection: normal respiratory effort Auscultation: clear to auscultation bilaterally Cardio: Palpation: normal PMI Rate: regular rate Rhythm: regular rhythm Heart sounds: S1 normal heart sound present and S2 normal heart sound present Peripheral pulses: Peripheral pulses 2+ throughout GI: Inspection: normal to inspection Auscultation: normal bowel sounds Rectal Exam: deferred Back/Spine/Pelvis: Thoracic/Lumbar Spine: thoracic and lumbar spine normal to inspection Skin: General skin exam: normal color Lesions: no lesions Rashes: no rashes Trauma: no lacerations or abrasions Wounds: no wounds Hair: normal Nails: normal Neuro: General: oriented to person Cranial nerves: Yes Equal, round and reactive pupils present and Yes Normal hearing present Extrem: General: normal to inspection Right upper extremity: normal to inspection and shoulder/upper arm Left upper extremity: normal to inspection and shoulder/upper arm Other: I lower extremity with improving edema and persistent pain with induration palpable at the calf also improving Psych: Appearance: grossly normal Mental Status: mental status grossly normal Other: short term memory loss - known and chronic Objective Data Vital Signs Vital Signs: Vital Signs - 24 hr 04/27/25 12:00 04/27/25 14:57 04/27/25 16:00 Temperature 97.7 F Pulse Rate 70 59 L 66 Respiratory Rate 15 Blood Pressure 104/57 L Pulse Oximetry 95 Oxygen Delivery 04/27/25 17:17 04/27/25 17:46 04/27/25 20:00 Temperature Pulse Rate 66 Respiratory Rate Blood Pressure Pulse Oximetry Oxygen Delivery Room Air Room Air 04/27/25 20:00 04/27/25 21:12 04/28/25 00:00 Temperature 97.8 F Pulse Rate 67 87 58 L Respiratory Rate 20 Blood Pressure 122/48 L Pulse Oximetry 98 Oxygen Delivery 04/28/25 04:00 04/28/25 09:36 04/28/25 09:36 Temperature Pulse Rate 59 L 60 60 Respiratory Rate Blood Pressure Pulse Oximetry Oxygen Delivery Intake/Output Intake/Output: Intake & Output 04/25/25 04/26/25 04/27/25 04/28/25 23:59 23:59 23:59 23:59 Intake Total 1110 2390 1262 1620 Output Total 300 1150 500 800 Balance 810 1240 762 820 Meds/Results Medications: Active Medications Generic Name Dose Route Start Last Admin Trade Name Freq PRN Reason Stop Dose Admin Acetaminophen 650 mg 04/19/25 21:40 04/24/25 20:08 Acetaminophen 325 Mg Tablet PO 650 mg Q4H PRN Administration Mild Pain (1-3) or Fever Amiodarone HCl 400 mg 04/24/25 17:00 04/28/25 09:36 Amiodarone Hcl 200 Mg Tablet PO 05/01/25 09:01 400 mg BID ANGELICA Administration Amiodarone HCl 200 mg 05/02/25 08:00 Amiodarone Hcl 200 Mg Tablet PO DAILY@0800 ANGELICA Furosemide 40 mg 04/25/25 09:00 04/28/25 09:36 Furosemide 40 Mg Tablet PO 40 mg DAILY ANGELICA Administration Dextrose/Sodium Chloride 1,000 mls @ 75 mls/hr 04/20/25 15:50 04/28/25 02:22 Dextrose 5% Sodium Chloride 0.9% IV CONT 75 mls/hr .[id number] ANGELICA Administration Potassium Chloride 40 meq/ 520 mls @ 130 mls/hr 04/28/25 07:18 04/28/25 09:37 Sodium Chloride IVPB 04/28/25 11:17 130 mls/hr ONCE ONE Administration Metoprolol Succinate 50 mg 04/24/25 12:15 04/28/25 09:36 Metoprolol Succinate Ext Rel 50 Mg Tabcr PO 50 mg QAM ANGELICA Administration Morphine Sulfate 2 mg 04/27/25 09:05 04/28/25 09:35 Morphine Sulfate (*Crx) 4 Mg/Ml Inj IV PUSH 2 mg Q6HR PRN Administration Pain Rated 7-10 Ondansetron HCl 4 mg 04/19/25 21:40 Ondansetron Inj 4 Mg/2 Ml Vial IV PUSH Q4H PRN Nausea Potassium Chloride 20 meq 04/27/25 09:00 04/28/25 09:35 Potassium Chloride 20 Meq Er Tablet PO 20 meq DAILY ANGELICA Administration Rivastigmine 1 patch 04/20/25 09:00 04/28/25 09:36 Rivastigmine Tartrate 4.6 Mg Patch TRANSDERM 1 patch DAILY ANGELICA Administration Rosuvastatin Calcium 40 mg 04/26/25 18:00 04/27/25 17:17 Rosuvastatin 20 Mg Tablet PO 40 mg EVENING ANGELICA Administration Spironolactone 50 mg 04/27/25 09:00 04/28/25 09:36 Spironolactone 50 Mg Tablet PO 50 mg QAM ANGELICA Administration Radiology Results: ITS Impressions Chest X-Ray 04/19/25 18:25 IMPRESSION: 1. Suspect left perihilar airspace disease. Can consider PA and lateral films with deep inspiration. Head CT 04/19/25 20:34 IMPRESSION: No acute intracranial hemorrhage or extra axial fluid collections. All CT scans at this facility are performed using low dose modulation techniques as appropriate to perform exam including the following: automated exposure control; use of iterative reconstruction technique; adjustment of the mA and/or kV according to patient size (this includes techniques or standardized protocols for targeted exams where dose is matched to indication/reason for exam). Chest/Abdomen/Pelvis CTA 04/19/25 20:37 IMPRESSION: CHEST- 1. Mildly enlarged lymph nodes left axilla. Malignancy not excluded. 2. 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 Recommend surgical consultation. 3. No PE or other acute cardiopulmonary findings. ABDOMEN/PELVIS- 1. No acute abdominopelvic findings. Lower Extremity CT 04/24/25 13:03 IMPRESSION: 1. No significant change in size of a 22.6 x 11.9 x 5.2 cm complex fluid collection in the posterior compartment of the right calf most likely an evolving hematoma. Differential would include abscess in the appropriate cli nical setting. 2. Mild patellofemoral osteoarthritis with persistent nonspecific small right knee joint effusion. Modified Barium Swallow 04/27/25 10:09 IMPRESSION: Transient flash laryngeal penetration without aspiration. Please correlate with speech pathologist findings and specific feeding recommendations. Labs Labs: Laboratory Results - last 24 hr 04/27/25 04/28/25 11:41 04:52 WBC 9.3 RBC 3.28 L Hgb 8.8 L Hct 29.4 L MCV 89.6 MCH 26.8 MCHC 29.9 L RDW 17.0 H Plt Count 219 MPV 10.4 Immature Gran % (Auto) 4.7 H Neut % (Auto) 72.2 Lymph % (Auto) 9.6 L [place] % (Auto) 8.1 Eos % (Auto) 4.8 H Baso % (Auto) 0.6 Lymph # (Auto) 0.90 [place] # (Auto) 0.8 H Eos # (Auto) 0.5 H Baso # (Auto) 0.1 Abs Immat Gran (auto) 0.44 H Absolute Neuts (auto) 6.7 Absolute Nucleated RBC 0.000 Band Neutrophils % Not Reportable Nucleated RBC % 0.0 Platelet Estimate Adequate Polychromasia Occasional Hypochromasia 1+ Anisocytosis 1+ Ovalocytes 1+ Schistocytes None seen Sodium 141 139 Potassium 3.8 3.0 L Chloride 115 H 112 H Carbon Dioxide 23 25 Anion Gap 3 L 2 L BUN 4 L 4 L Creatinine 0.85 0.83 Estim Creat Clear Calc 80 82 Estimated GFR > 60 > 60 Glucose 111 H 108 Calcium 7.9 L 7.5 L Total Bilirubin 0.5 AST 24 ALT 22 Alkaline Phosphatase 76 Total Protein 5.1 L Albumin 2.5 L Hospitalist MIPS Advance Care Plan I have confirmed that the patient's Advanced Care Plan is present, code status is documented, or surrogate decision maker is listed in patient medical record.: Yes Medication Reconciliation I have utilized all available resources to obtain, update and review the patients current medications (includes all prescriptions, OTC, herbals, cannabis, and nutritional supplements).: Yes
[2025-04-28] MEDS: ROSUVASTATIN 20 MG TABLET 40 MG PO (17:29)
[2025-04-28 19:47] LABS: Anion Gap 3 mmol/L (4-12); Blood Urea Nitrogen 5 mg/dL (9-20); Calcium 7.7 mg/dL (8.4-10.2); Carbon Dioxide 23 mmol/L (22-30); Chloride 109 mmol/L (98-107); Estimated CRCL calculation 84 ml/min; Estimated Glomerular Filt Rate > 60; Glucose 106 mg/dL (65-110); Potassium 3.7 mmol/L (3.4-5.0); Sodium 135 mmol/L (137-145)
[2025-04-29] VITALS (9 sets, daily range): BP systolic 124–137; BP diastolic 55–59; PULSE 55–96; RESP 18–25; TEMP 36.4; O2SAT 48–100
[2025-04-29 05:32] LABS: Hematocrit 30.4 % (42.0-52.0); Hemoglobin 9.3 g/dL (14.0-18.0); Immature Granulocyte Percent A 2.7 % (0-0.5); Lymphocytes Absolute Auto 0.87 K/mm3 (0.9-3.2); Mean Corpuscular HGB Conc 30.6 g/dl (32-36); Mean Corpuscular Hemoglobin 27.0 pg (26-34); Mean Corpuscular Volume 88.4 fl (80-100); Nucleated Red Blood Cells Absolute Auto 0.000 K/mm3 (0.0-0.012); Nucleated Red Blood Cells Perc 0.0 % (0.0-0.2); Platelet Count Result 198 k/mm3 (150-375); Red Blood Count 3.44 M/mm3 (4.6-6.20); White Blood Count 9.4 K/mm3 (4.5-10.0)
[2025-04-29 05:59] LABS: Alanine Aminotransferase 19 U/L (6-50); Albumin Level 2.6 g/dL (3.5-5.1); Alkaline Phosphatase 83 U/L (38-126); Anion Gap 3 mmol/L (4-12); Aspartate Amino Transferase 23 U/L (17-59); Bilirubin,Total 0.7 mg/dL (0.2-1.3); Blood Urea Nitrogen 4 mg/dL (9-20); Calcium 7.6 mg/dL (8.4-10.2); Carbon Dioxide 25 mmol/L (22-30); Chloride 108 mmol/L (98-107); Estimated CRCL calculation 84 ml/min; Estimated Glomerular Filt Rate > 60; Glucose 110 mg/dL (65-110); Potassium 3.1 mmol/L (3.4-5.0); Sodium 136 mmol/L (137-145); Total Protein 5.3 g/dL (6.3-8.2)
--- NOTE | 2025-04-29 07:32 | P.PNIM_ITS ---
Progress Note: A&P Assessment and Plan (1) New onset a-fib: Code(s): I48.91 - Unspecified atrial fibrillation Status: Acute Assessment and Plan: - new onset of AFib. -ECHO EF 60-65% and diastolic dysfunction indeterminate -the patient has already been on Lovenox, currently held due to hematoma -Isai Vasc score is 5. cardiology recommends oral amiodarone 400 mg daily, transition to 200mg on 05/02 -rate between 60-70 on review -continue telemetry monitoring (2) Congestive heart failure: Qualifiers: Heart failure chronicity: chronic Heart failure type: combined systolic and diastolic Qualified Code(s): I50.42 - Chronic combined systolic (congestive) and diastolic (congestive) heart failure Code(s): I50.9 - Heart failure, unspecified Status: Acute Assessment and Plan: ECHO showed EF 60-65%, diastolic dysfunction indeterminate -his Entresto has been on hold at this time but BP is still soft, particularly DBP, so cautiously resume if BP improves and tolerates -resume spironolactone when BP tolerates as well -troponin is 0.050 which could be elevated from heart failure or from the AFib RVR. Demand ischemia 04/21/2025 (3) HTN (hypertension): Qualifiers: Hypertension type: essential hypertension Qualified Code(s): I10 - Essential (primary) hypertension Code(s): I10 - Essential (primary) hypertension Status: Acute Assessment and Plan: -the patient is currently on amiodarone. -Entresto is on hold at this time -BP reviewed and ranging from 104/57-137/59 (4) Mixed hyperlipidemia: Code(s): E78.2 - Mixed hyperlipidemia Status: Acute Assessment and Plan: continue home rosuvastatin (5) History of deep vein thrombosis: Code(s): Z86.718 - Personal history of other venous thrombosis and embolism Status: Acute Assessment and Plan: -off anticoagulation due to acute hematoma 04/25: Status post IVC filter placement from the left side by surgery. (6) Hodgkin's lymphoma, adult: Code(s): C81.90 - Hodgkin lymphoma, unspecified, unspecified site Status: Acute Assessment and Plan: -Hematology-Oncology consultation greatly appreciated. His CT scan does show slightly enlarged axillary lymph node. Malignancy not excluded. (7) Leukocytosis: Code(s): D72.829 - Elevated white blood cell count, unspecified Status: Acute Assessment and Plan: -his white count is up to 21.6. -blood cultures from 04/19 are negative -the patient was empirically started on cefepime and vancomycin. -hematology/oncology has been consulted as well. -daily CBCs -resolved (8) JONAH (obstructive sleep apnea): Code(s): G47.33 - Obstructive sleep apnea (adult) (pediatric) Status: Acute Assessment and Plan: -home settings for CPAP/BiPAP (9) Hematoma of right lower extremity: Code(s): S80.11XA - Contusion of right lower leg, initial encounter Status: Acute Assessment and Plan: Groin hematoma likely due to anticoagulation without concern for compartment syndrome per surgery. Surgery discussed with Hematology in a group for IVC filter placement which was discussed with family. Anticoagulation has been discontinued given this hematoma. 04/25: Regional Transfer Liaison had continued concern for hematoma, surgery had not commented on it, patient is currently off anticoagulation, CT scan was urgently ordered which showed no worsening of hematoma. Calf pain has been improving as well. Hematology agrees to discontinuation of anticoagulation given IVC filter placement. 04/26: Will need to reach out to surgery course to further management of leg hematoma, likely no further management from their point of view 04/27: Spoke with surgery who said drainage was not likely needed and conservative management can be done, draining only if it becomes infected or if the hematoma surfaces 04/28: Exam of R leg shows improvement of swelling and induration, leg is dressed and bandaged. Patient still c/o severe pain and needs regular pain control. 04/29: Patient with complaints of RLE pain, add back home dose of [place] PRN, continue morphine PRN for breakthrough pain (10) Thoracic aortic aneurysm without rupture: Qualifiers: Thoracic aorta location: ascending aorta Qualified Code(s): I71.21 - Aneurysm of the ascending aorta, without rupture Code(s): I71.2 - Thoracic aortic aneurysm, without rupture Status: Acute Assessment and Plan: 5.8 cm aortic aneurysm on imaging, patient is aware of this and does not wish to pursue operative management at this time given significant risk. He is aware of risks of not operating. Family/POA is on board. (11) Hypokalemia: Code(s): E87.6 - Hypokalemia Status: Acute Assessment and Plan: Significant hypokalemia this morning at 2.7, aggressive repletion was done, repeat potassium only improved to 3.0. Continued repletion 40 mg IV potassium administered, routine follow-up ordered 04/27: Continues to have hypokalemia, magnesium was administered and IV potassium chloride was administered as well, potassium is improving 04/28: K 3.0, IV 40mEq ordered, patient is on standing 20mEq po as well. 04/29: K 3.1, increased PO k to 40 meq daily, ordered 40 meq IVPB as well check magnesium level Continue monitoring potassium after administration of repletion dose Plan DVT prophylaxis-IVC filter in place Subjective Date/time seen: 04/29/25 07:32 Interval history: Patient seen for a follow up visit. Patient lying in bed, in no acute distress. Patient reports pain to his right lower extremity. Patients family at bedside. MRI brain ordered. Patient's potassium 3.1 this AM, check magnesium level. Increase daily kdur to 40 meq daily, IV kcl 40 meq x 1 dose ordered. Plan to recheck potassium level later in the day and replete as needed. Patient will need rehab on discharge due to deconditioning. Review of Systems Review of Systems: All systems reviewed & are unremarkable except as noted in HPI and below Exam Const: General: cooperative, no acute distress and awake HENMT: Face/Nose/Sinus: Normal nares present Mouth: Yes moist mucous membranes Eyes: General: appearance normal, both eyes and all related structures Neck: Neck: normal visual inspection Resp: Effort & Inspection: normal respiratory effort Auscultation: clear to auscultation bilaterally Cardio: Rate: regular rate Rhythm: regular rhythm GI: Inspection: normal to inspection GI Palp: Yes Soft to palpation Auscultation: normal bowel sounds Skin: General skin exam: normal color and no rashes or lesions noted Neuro: Speech: normal speech Motor exam (neuro): 5/5 motor strength present throughout Extrem: General: normal to inspection Right upper extremity: normal to inspection and shoulder/upper arm Left upper extremity: normal to inspection and shoulder/upper arm Other: I lower extremity with improving edema and persistent pain with induration palpable at the calf also improving Psych: Appearance: grossly normal Mental Status: mental status grossly normal Other: short term memory loss - known and chronic Objective Data Vital Signs Vital Signs: Vital Signs - 24 hr 04/28/25 08:00 04/28/25 08:00 04/28/25 09:36 Temperature Pulse Rate 63 60 Respiratory Rate Blood Pressure Pulse Oximetry Oxygen Delivery Room Air 04/28/25 09:36 04/28/25 11:44 04/28/25 12:00 Temperature Pulse Rate 60 61 Respiratory Rate Blood Pressure Pulse Oximetry 93 Oxygen Delivery Room Air 04/28/25 14:00 04/28/25 17:21 04/28/25 20:00 Temperature 97.9 F Pulse Rate 63 60 Respiratory Rate 20 Blood Pressure 127/88 Pulse Oximetry 97 Oxygen Delivery Room Air 04/28/25 20:57 04/28/25 22:00 04/29/25 00:00 Temperature 97.5 F L Pulse Rate 63 65 76 Respiratory Rate 19 Blood Pressure 133/59 L Pulse Oximetry 97 Oxygen Delivery 04/29/25 04:00 04/29/25 06:00 Temperature 97.6 F Pulse Rate 55 L 60 Respiratory Rate 18 Blood Pressure 137/59 L Pulse Oximetry 90 Oxygen Delivery Intake/Output Intake/Output: Intake & Output 04/26/25 04/27/25 04/28/25 04/29/25 23:59 23:59 23:59 23:59 Intake Total 2390 1262 2860 Output Total 7650 586 3605 Balance 1240 762 760 Meds/Results Medications: Active Medications Generic Name Dose Route Start Last Admin Trade Name Freq PRN Reason Stop Dose Admin Acetaminophen 650 mg 04/19/25 21:40 04/24/25 20:08 Acetaminophen 325 Mg Tablet PO 650 mg Q4H PRN Administration Mild Pain (1-3) or Fever Amiodarone HCl 400 mg 04/24/25 17:00 04/28/25 17:21 Amiodarone Hcl 200 Mg Tablet PO 05/01/25 09:01 400 mg BID ANGELICA Administration Amiodarone HCl 200 mg 05/02/25 08:00 Amiodarone Hcl 200 Mg Tablet PO DAILY@0800 ANGELICA Furosemide 40 mg 04/25/25 09:00 04/28/25 09:36 Furosemide 40 Mg Tablet PO 40 mg DAILY ANGELICA Administration Dextrose/Sodium Chloride 1,000 mls @ 75 mls/hr 04/20/25 15:50 04/28/25 21:30 Dextrose 5% Sodium Chloride 0.9% IV CONT 75 mls/hr .[id number] ANGELICA Administration Metoprolol Succinate 50 mg 04/24/25 12:15 04/28/25 09:36 Metoprolol Succinate Ext Rel 50 Mg Tabcr PO 50 mg QAM ANGELICA Administration Morphine Sulfate 2 mg 04/27/25 09:05 04/28/25 19:40 Morphine Sulfate (*Crx) 4 Mg/Ml Inj IV PUSH 2 mg Q6HR PRN Administration Pain Rated 7-10 Ondansetron HCl 4 mg 04/19/25 21:40 Ondansetron Inj 4 Mg/2 Ml Vial IV PUSH Q4H PRN Nausea Potassium Chloride 20 meq 04/27/25 09:00 04/28/25 09:35 Potassium Chloride 20 Meq Er Tablet PO 20 meq DAILY ANGEILCA Administration Rivastigmine 1 patch 04/20/25 09:00 04/28/25 09:36 Rivastigmine Tartrate 4.6 Mg Patch TRANSDERM 1 patch DAILY ANGELICA Administration Rosuvastatin Calcium 40 mg 04/26/25 18:00 04/28/25 17:29 Rosuvastatin 20 Mg Tablet PO 40 mg EVENING ANGELICA Administration Spironolactone 50 mg 04/27/25 09:00 04/28/25 09:36 Spironolactone 50 Mg Tablet PO 50 mg QAM ANGELICA Administration Radiology Results: ITS Impressions Chest X-Ray 04/19/25 18:25 IMPRESSION: 1. Suspect left perihilar airspace disease. Can consider PA and lateral films with deep inspiration. Head CT 04/19/25 20:34 IMPRESSION: No acute intracranial hemorrhage or extra axial fluid collections. All CT scans at this facility are performed using low dose modulation techniques as appropriate to perform exam including the following: automated exposure control; use of iterative reconstruction technique; adjustment of the mA and/or kV according to patient size (this includes techniques or standardized protocols for targeted exams where dose is matched to indication/reason for exam). Chest/Abdomen/Pelvis CTA 04/19/25 20:37 IMPRESSION: CHEST- 1. Mildly enlarged lymph nodes left axilla. Malignancy not excluded. 2. 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 Recommend surgical consultation. 3. No PE or other acute cardiopulmonary findings. ABDOMEN/PELVIS- 1. No acute abdominopelvic findings. Lower Extremity CT 04/24/25 13:03 IMPRESSION: 1. No significant change in size of a 22.6 x 11.9 x 5.2 cm complex fluid collection in the posterior compartment of the right calf most likely an evolving hematoma. Differential would include abscess in the appropriate clinical setting. 2. Mild patellofemoral osteoarthritis with persistent nonspecific small right knee joint effusion. Modified Barium Swallow 04/27/25 10:09 IMPRESSION: Transient flash laryngeal penetration without aspiration. Please correlate with speech pathologist findings and specific feeding recommendations. Labs Labs: Laboratory Results - last 24 hr 04/28/25 04/29/25 19:22 04:48 WBC 9.4 RBC 3.44 L Hgb 9.3 L Hct 30.4 L MCV 88.4 MCH 27.0 MCHC 30.6 L RDW 17.2 H Plt Count 198 MPV 10.3 Immature Gran % (Auto) 2.7 H Neut % (Auto) 75.6 H Lymph % (Auto) 9.3 L [place] % (Auto) 8.1 Eos % (Auto) 3.8 Baso % (Auto) 0.5 Lymph # (Auto) 0.87 L [place] # (Auto) 0.8 H Eos # (Auto) 0.4 H Baso # (Auto) 0.1 Abs Immat Gran (auto) 0.25 H Absolute Neuts (auto) 7.1 H Absolute Nucleated RBC 0.000 Nucleated RBC % 0.0 Sodium 135 L 136 L Potassium 3.7 3.1 L Chloride 109 H 108 H Carbon Dioxide 23 25 Anion Gap 3 L 3 L BUN 5 L 4 L Creatinine 0.81 0.81 Estim Creat Clear Calc 84 84 Estimated GFR > 60 > 60 Glucose 106 110 Calcium 7.7 L 7.6 L Total Bilirubin 0.7 AST 23 ALT 19 Alkaline Phosphatase 83 Total Protein 5.3 L Albumin 2.6 L Hospitalist MIPS Advance Care Plan I have confirmed that the patient's Advanced Care Plan is present, code status is documented, or surrogate decision maker is listed in patient medical record.: Yes Medication Reconciliation I have utilized all available resources to obtain, update and review the patients current medications (includes all prescriptions, OTC, herbals, cannabis, and nutritional supplements).: Yes
[2025-04-29 07:54] LABS: Magnesium 1.6 mg/dL (1.6-2.3)
[2025-04-29] MEDS: AMIODARONE HCL 200 MG TABLET 400 MG PO (08:26)
[2025-04-29] MEDS: FUROSEMIDE 40 MG TABLET PO (08:27)
[2025-04-29] MEDS: POTASSIUM CHLORIDE 20 MEQ ER TABLET 40 MEQ PO (08:27)
[2025-04-29] MEDS: METOPROLOL SUCCINATE EXT REL 50 MG TABCR PO (08:27)
[2025-04-29] MEDS: POTASSIUM CHLORIDE INJ 40 MEQ in SODIUM CHLORIDE 0.9% IV 500 ML 130 MEQ IVPB (08:27)
[2025-04-29] MEDS: SPIRONOLACTONE 50 MG TABLET PO (08:27)
[2025-04-29] MEDS: RIVASTIGMINE TARTRATE 4.6 MG PATCH 1 PATCH TRANSDERM (08:30)
--- NOTE | 2025-04-29 14:58 | ECG_ITS ---
Test Date: 2025-04-29 15:03:52 Measurements Intervals [place] Rate: 87 P: 0 MA: 0 QRS: -42 QRSD: 118 T: -10 QT: 420 QTc: 505 Interpretive Statements sinus rhythm artifact Electronically Signed On 04-30-2025 18:22:07 JOINTER MACHINE OPERATOR by Keara Watt M.D.
[2025-04-29] MEDS: MAGNESIUM SULF 2 GM/WATER 50ML 2 GM/50 ML BAG IVPB (15:04)
[2025-04-29 15:08] LABS: Hematocrit 35.1 % (42.0-52.0); Hemoglobin 10.5 g/dL (14.0-18.0); Mean Corpuscular HGB Conc 29.9 g/dl (32-36); Mean Corpuscular Hemoglobin 28.0 pg (26-34); Mean Corpuscular Volume 93.6 fl (80-100); Platelet Count Result 287 k/mm3 (150-375); Red Blood Count 3.75 M/mm3 (4.6-6.20); White Blood Count 13.8 K/mm3 (4.5-10.0)
[2025-04-29 15:21] LABS: Anion Gap 8 mmol/L (4-12); Blood Urea Nitrogen 4 mg/dL (9-20); Calcium 7.9 mg/dL (8.4-10.2); Carbon Dioxide 24 mmol/L (22-30); Chloride 105 mmol/L (98-107); Estimated CRCL calculation 72 ml/min; Estimated Glomerular Filt Rate > 60; Glucose 275 mg/dL (65-110); Magnesium 1.8 mg/dL (1.6-2.3); Potassium 3.2 mmol/L (3.4-5.0); Sodium 137 mmol/L (137-145)
--- NOTE | 2025-04-29 15:31 | WPDCNINT ---
Assessment and Plan Assessment and plan (1) Cardiac arrest: Code(s): I46.9 - Cardiac arrest, cause unspecified Status: Acute Assessment and Plan: 04/29: VFib arrest, likely torsades -ACLS protocol instituted -ROSC in about 5-6 minutes -see code sheet for details -patient and family decided comfort measures, do not resuscitate, do not intubate -palliative withdrawal of support -comfort measure orders placed in the chart, bedside RN and ICU charge nurse aware (2) Hypoxic respiratory failure: Code(s): J96.91 - Respiratory failure, unspecified with hypoxia Status: Acute Assessment and Plan: Patient hypoxic, could be related to cardiac arrest, heart failure, pneumonia -s/p antibiotics cefepime and vancomycin (3) Deep vein thrombosis (DVT) of right lower extremity: Qualifiers: Affected thrombotic vein of extremity: popliteal Chronicity: acute Qualified Code(s): I82.431 - Acute embolism and thrombosis of right popliteal vein Code(s): I82.401 - Acute embolism and thrombosis of unspecified deep veins of right lower extremity Status: Acute Assessment and Plan: Status post IVC filter placed on 04/25 by surgery due to hematoma of the right calf -Heme-Onc was following the patient (4) Hypokalemia: Code(s): E87.6 - Hypokalemia Status: Acute Assessment and Plan: Potassium was replete (5) New onset a-fib: Code(s): I48.91 - Unspecified atrial fibrillation Status: Acute Assessment and Plan: New onset AFib, on p.o. amiodarone, rate controlled -cardiology following the patient (6) JONAH (obstructive sleep apnea): Code(s): G47.33 - Obstructive sleep apnea (adult) (pediatric) Status: Acute (7) Thoracic aortic aneurysm without rupture: Qualifiers: Thoracic aorta location: ascending aorta Qualified Code(s): I71.21 - Aneurysm of the ascending aorta, without rupture Code(s): I71.2 - Thoracic aortic aneurysm, without rupture Status: Acute Assessment and Plan: 5.8 cm aortic aneurysm, patient and family are aware of this and did not which to pursue operative management (8) Congestive heart failure: Qualifiers: Heart failure type: combined systolic and diastolic Heart failure chronicity: chronic Qualified Code(s): I50.42 - Chronic combined systolic (congestive) and diastolic (congestive) heart failure Code(s): I50.9 - Heart failure, unspecified Status: Acute Assessment and Plan: Heart failure with preserved ejection fraction -cardiology following the patient Plan DVT prophylaxis: IVC filter in place Stress ulcer prophylaxis: Nutrition: Code Status: DNR/DNI, comfort measures Critical Care Time Spent: 55 minutes Discussed with Aislinn(POA), Rosa Maria (daughter), Beto (son). Aislinn discussed with the patient and he stated he did not want to pursue any aggressive management, he wants to go in peace and dignity. Family and patient decided to pursue with palliative withdrawal of support and comfort measures. Due to a high probability of clinically significant, life threatening deterioration, the patient required my highest level of preparedness to intervene emergently and I personally spent this critical care time directly and personally managing the patient. This critical care time included obtaining a history; examining the patient; pulse oximetry; ordering and review of studies; arranging urgent treatment with development of a management plan; evaluation of patient's response to treatment; frequent reassessment; and discussions with other providers. It was exclusive of separately billable procedures and treating other patients and teaching time. Please see Assessment and Plan section and the rest of the note for further information on patient assessment and treatment This dictation may have been done utilizing a voice recognition system. Attempts have been made to correct errors. However, there may be uncorrected grammatical, spelling, and recognitions errors present. Plant Specialist Consult Note Consult date: 04/29/25 Reason for consult: Status post cardiac arrest HPI: Og Beaver is a 74 year old male with past medical history of ascending aortic aneurysm 5.8 cm, patient has declined surgery. History of TIA, HFpEF, essential hypertension, depression, obstructive sleep apnea, GERD, DVT, presented the ED with complains of generalized weakness and altered mental status on 04/20/2025. Patient was recently admitted at [facility] on 03/19/2025 with concerns of compartment syndrome secondary to RLE DVT. No intervention was performed. Patient was at [facility], was transferred to [facility] for possibility of a PE. CTA chest abdomen and pelvis with no PE, 5.8 cm fusiform aneurysm of the aortic arch. Mild enlarged lymph nodes in the left axilla. Patient had a complex right calf hematoma likely related to anticoagulation with therapeutic Lovenox, hematology/oncology evaluated the patient recommended IVC filter placement which was done by general surgery on 04/25/2025. Cardiology evaluated the patient for new onset AFib with rapid ventricular response. Patient was on oral amiodarone with appropriate rate control. Patient had leukocytosis, was being treated empirically with cefepime and vancomycin. On 04/29/2025, lorrie marinelli was called on the medical floor, patient went into VFib according the bedside personnel present. CPR was started upon arrival, patient was in fine VFib on the monitor and was defibrillated x1, received 1 amp of epinephrine, 1 amp of bicarb and 1 amp off dextrose 50% with ROSC within 5-6 minutes. Patient was transferred to the ICU, had a long discussion with 2 sisters, Rosa Maria and Aislinn (POA) I also spoke to Beto, son on the phone. In the meantime the patient discussed with Aislinn the POA and decided he does not want anything to be done aggressively and wanting to go in peace and dignity. The family decided comfort measures and withdrawal of support. Review of Systems Review of Systems: ROS unobtainable: Yes unobtainable due to medical condition and unobtainable due to mental status PMFSH Past Medical History Medical History (Updated 04/29/25 @ 15:50 by Dayan Clark MD) Hypokalemia Hip osteoarthritis Chronic lower back pain Left hip pain Right rib fracture Flank pain Intertrigo COVID-19 Ascending aortic aneurysm Encounter for routine adult health examination without abnormal findings Essential hypertension Gastroesophageal reflux disease without esophagitis TIA (transient ischemic attack) Depression Cognitive decline JONAH (obstructive sleep apnea) Short-term memory loss Arthritis GERD (gastroesophageal reflux disease) DVT (deep venous thrombosis) Hypercholesterolemia HTN (hypertension) Surgical History Surgical History (Updated 04/20/25 @ 04:54 by Ana Lowe APRN) H/O local excision of skin lesion H/O inguinal hernia repair H/O vein stripping History of tonsillectomy Family History Family History Father Hypertension Family history of coronary artery disease Family history of heart disease in male family member before age 55 Mother Hypertension Family history of congestive heart failure Unknown Heart disease Diabetes mellitus Depression Arthritis Hypertension High cholesterol Other Family history of elevated blood lipids Social History Social History (Updated 04/20/25 @ 04:57 by Ana Lowe, CARDIOVASCULAR TECH) Social History: Ever care of shama. He is . Elects his daughter, Aislinn Beaver, as his decision maker. Code Status: Full Code. Smoking status: Former smoker Second hand tobacco smoke exposure: No Alcohol intake: former Substance use: never Substance use type: does not use Do You Feel Safe in your Home?: Yes Lack of Transportation: No Lack of Food: Never True Current Housing: I Have Housing Concerned About Future Housing: No Difficulty Paying Gas/Electric Bills: No Difficulty Paying for Meds: No Currently Unemployed: No Education: Master's Degree or Higher Difficulty w/ Childcare or Family Care: No Living arrangements: assisted living Occupation/Education: retired Gender identity (if verbalized by the patient): Male Spiritual care concerns: No Meds Home Medications and Allergies Home Medications ?Medication ?Instructions ?Recorded ?Confirmed ?Type multivitamin 1 tablet PO DAILY 04/11/19 04/20/25 History mirtazapine 15 mg tablet 15 mg PO DAILY #1 tablet 11/22/20 04/20/25 Rx empagliflozin 10 mg tablet 10 mg PO DAILY #30 tabs 08/03/21 04/20/25 Rx (Jardiance) polysaccharide iron complex 150 mg See Rx Instructions .Route 08/22/21 04/20/25 Rx iron capsule (Ferrex) .COMPLEX #180 caps metoprolol succinate 25 mg 25 mg PO DAILY 08/29/21 04/19/25 History tablet,extended release 24 hr (Toprol XL) rivastigmine 4.6 mg/24 hour 4.6 mg transdermal DAILY 08/29/21 04/20/25 History transdermal patch sacubitril 49 mg-valsartan 51 mg 1 tablet PO BID 03/18/22 04/20/25 History tablet (Entresto) lansoprazole 30 mg capsule,delayed 30 mg PO DAILY #90 caps 10/02/22 04/20/25 Rx release apixaban 5 mg tablet (Eliquis) 5 mg PO Q12H #60 tabs 05/28/23 04/20/25 Rx Held on 04/19/25. Instructions: taking Lovenox aspirin 81 mg tablet,delayed 81 mg PO DAILY 10/25/23 04/20/25 History release (Adult Aspirin Regimen) Held on 04/19/25. Instructions: On Lovenox therapy rosuvastatin 40 mg tablet 40 mg PO DAILY 10/25/23 04/20/25 History acetaminophen 325 mg tablet 650 mg PO Q6H PRN pain 04/19/25 04/19/25 History alprazolam 0.25 mg tablet (Xanax) 0.25 mg PO BID 04/19/25 04/19/25 History enoxaparin 120 mg/0.8 mL 120 mg subcut Q12H 04/19/25 04/19/25 History subcutaneous syringe gabapentin 100 mg capsule 200 mg PO Q12H 04/19/25 04/19/25 History hydrocodone 10 mg-acetaminophen 1 tablet PO Q4H PRN pain 04/19/25 04/19/25 History 325 mg tablet buspirone 5 mg tablet 15 mg PO Q12HR 04/20/25 04/19/25 History melatonin 3 mg capsule 3 mg PO HS PRN sleep 04/20/25 04/20/25 History methocarbamol 500 mg tablet 500 mg PO Q8H PRN spasms 04/20/25 04/20/25 History naloxone 4 mg/actuation nasal 4 mg intranasal Q2-3M PRN opioid 04/20/25 04/20/25 History spray (Narcan) overdose polyethylene glycol 3350 17 gram 17 g PO DAILY 04/20/25 04/20/25 History oral powder packet (Miralax) sacubitril 24 mg-valsartan 26 mg 0.5 tablet PO BID 04/20/25 04/20/25 History tablet (Entresto) sennosides 8.6 mg-docusate sodium 1 tab-cap PO DAILY 04/20/25 04/20/25 History 50 mg tablet (2-in-1 Laxative) spironolactone 25 mg tablet 12.5 mg PO QAM 04/20/25 04/19/25 History vortioxetine 5 mg tablet 5 mg PO DAILY 04/20/25 04/20/25 History Allergies Allergy/AdvReac Type Severity Reaction Status Date / Time apricot Allergy Severe throat Verified 04/20/25 00:36 SWELLING Vital Signs Vital Signs - 24 hr 04/28/25 17:21 04/28/25 20:00 04/28/25 20:57 Temperature Pulse Rate 60 63 Respiratory Rate Blood Pressure Pulse Oximetry Oxygen Delivery Room Air 04/28/25 22:00 04/29/25 00:00 04/29/25 04:00 Temperature 97.5 F L Pulse Rate 65 76 55 L Respiratory Rate 19 Blood Pressure 133/59 L Pulse Oximetry 97 Oxygen Delivery 04/29/25 06:00 04/29/25 08:00 04/29/25 08:26 Temperature 97.6 F Pulse Rate 60 64 72 Respiratory Rate 18 Blood Pressure 137/59 L Pulse Oximetry 90 Oxygen Delivery 04/29/25 08:27 04/29/25 08:30 04/29/25 12:00 Temperature Pulse Rate 72 69 Respiratory Rate Blood Pressure Pulse Oximetry Oxygen Delivery Room Air 04/29/25 14:00 Temperature 97.6 F Pulse Rate 60 Respiratory Rate 20 Blood Pressure 124/55 L Pulse Oximetry 100 Oxygen Delivery Exam Narrative: General: Elderly gentleman in respiratory distress and hypoxic HEENT:? Pupils are equal and reactive Neck:? Supple Respiratory:? Coarse breath sounds bilaterally, decreased at bases, occasional wheezing Cardiac:? irregularly irregular Abdomen:? Soft, nontender, nondistended, hypoactive bowel sounds Extremities:? Bilateral lower extremity edema, swelling of the right leg Neuro:? Patient open his eyes, follows simple commands, able to answer questions Skin:? Warm and dry Psych:? Unable to assess at this time Results Labs 04/29/25 14:47 04/29/25 14:47 Labs: Short CBC 04/29/25 04/29/25 Range/Units 04:48 14:47 WBC 9.4 13.8 H (4.5-10.0) K/mm3 Hgb 9.3 L 10.5 L (14.0-18.0) g/dL Hct 30.4 L 35.1 L (42.0-52.0) % Plt Count 198 287 (150-375) k/mm3 BMP 04/28/25 04/29/25 04/29/25 19:22 04:48 14:47 Sodium 135 L 136 L 137 Potassium 3.7 3.1 L 3.2 L Chloride 109 H 108 H 105 Carbon Dioxide 23 25 24 BUN 5 L 4 L 4 L Creatinine 0.81 0.81 0.96 Glucose 106 110 275 H Calcium 7.7 L 7.6 L 7.9 L Liver Function 04/29/25 Range/Units 04:48 Total Bilirubin 0.7 (0.2-1.3) mg/dL AST 23 (17-59) U/L ALT 19 (6-50) U/L Alkaline Phosphatase 83 (38-126) U/L Albumin 2.6 L (3.5-5.1) g/dL
[2025-04-29] MEDS: MORPHINE SULFATE INJ (*CRX) 10 MG/ML AMP 5 MG IV PUSH (15:39)
[2025-04-29] MEDS: diazePAM INJ (*CRX) 10 MG/2 ML SYRINGE 5 MG IV PUSH ×4 (15:40→21:37)
[2025-04-29] MEDS: MORPHINE SULFATE (*CRX) 4 MG/ML INJ 2 MG IV PUSH ×8 (16:24→21:35)
[2025-04-29] MEDS: HYDROmorphone HCL INJ (*CRX) 1 MG/ML SYR IV PUSH (17:55)
--- NOTE | 2025-05-02 14:41 | P.DN_ITS ---
Discharge Summary Date and Time Date of : 04/29/25 Time of : 21:57 Provider Pronounced By: 2 RNs Name of First RN That Pronounced: Kolby De Santiago RN Name of Second RN That Pronounced: Betty Lopez RN Probable Cause of Probable Cause of : hypoxic respiratory failure, ventricular arrythmia Summary Hospital Course: Cardiac arrest 04/29: VFib arrest, likely torsades -ACLS protocol instituted -ROSC in about 5-6 minutes -see code sheet for details -patient and family decided comfort measures, do not resuscitate, do not intubate -palliative withdrawal of support -comfort measure orders placed in the chart, bedside RN and ICU charge nurse aware -patient transferred back to medical status on comfort measures Hypoxic respiratory failure -Patient hypoxic, could be related to cardiac arrest, heart failure, pneumonia -s/p antibiotics cefepime and vancomycin -family and patient opted for comfort measures only, comfort medications ordered by public services assistant, patient transferred back to hospitalist service New onset a-fib - new onset of A-Fib. -ECHO EF 60-65% and diastolic dysfunction indeterminate -the patient has already been on Lovenox, currently held due to hematoma -Isai Vasc score is 5. -cardiology was consulted -PO amiodarone Congestive heart failure -ECHO showed EF 60-65%, diastolic dysfunction indeterminate -his Entresto has been on hold at this time but BP is still soft, particularly DBP, so cautiously resume if BP improves and tolerates -spironolactone on hold due to low BP -troponin is 0.050 which could be elevated from heart failure or from the AFib RVR. Demand ischemia 04/21/2025 HTN -the patient is currently on amiodarone. -Entresto is on hold at this time Mixed hyperlipidemia -continue home rosuvastatin History of DVT -off anticoagulation due to acute hematoma -04/25: Status post IVC filter placement from the left side by surgery. Hodgkin's lymphoma, adult -Hematology-Oncology consultation greatly appreciated. -His CT scan does show slightly enlarged axillary lymph node. Malignancy not excluded. Leukocytosis -his white count up to 21.6. -blood cultures from 04/19 are negative -the patient was empirically started on cefepime and vancomycin. -hematology/oncology has been consulted as well. -resolved JONAH -home settings for CPAP/BiPAP Hematoma of right lower extremity -Groin hematoma likely due to anticoagulation without concern for compartment syndrome per surgery. Surgery discussed with Hematology in a group for IVC filter placement which was discussed with family. Anticoagulation has been discontinued given this hematoma. -04/25: Artificial Flower Maker had continued concern for hematoma, surgery had not commented on it, patient is currently off anticoagulation, CT scan was urgently ordered which showed no worsening of hematoma. Calf pain has been improving as well. Hematology agrees to discontinuation of anticoagulation given IVC filter placement. -04/26: Will need to reach out to surgery course to further management of leg hematoma, likely no further management from their point of view -04/27: Spoke with surgery who said drainage was not likely needed and conservative management can be done, draining only if it becomes infected or if the hematoma surfaces -04/28: Exam of R leg shows improvement of swelling and induration, leg is dressed and bandaged. Patient still c/o severe pain and needs regular pain control. -04/29: Patient with complaints of RLE pain, add back home dose of Gail PRN, continue morphine PRN for breakthrough pain Thoracic aortic aneurysm, without rupture -5.8 cm aortic aneurysm on imaging, patient is aware of this and does not wish to pursue operative management at this time given significant risk. He is aware of risks of not operating. Family/POA is on board. Hypokalemia -potassium was 3.1 this AM -repletion ordered -repeat after cardiac arrest was 3.2 -telemetry monitoring Additional Data Confirmation of as documented by pronouncing clinician: Pupillary Reflex, Palpable Pulses, Response to Stimuli, Heart Tones and Breath Sounds Name of Provider Notified: Dr. Sadler Time Provider Notified: 22:10 Provider Requests Autopsy: No Family Requests Autopsy: No Machine Scallop Cutter Notified: Yes Date [facility] Notified of : 04/29/25 Time [facility] Notified of : 22:14
== END 2025-04-29 21:57 | disposition expired | DRG 871 ==
LOC: ANHED 19:06 → ANHIMU 22:52 → ANH2MED 04-27 14:31 → ANHICU 04-29 23:24 → ANH2MED 04-30 10:20 → ANHICU 04-30 10:20
PROVIDERS: Family Medicine; Internal Medicine; Internal Medicine Hematology & Oncology; Nurse Practitioner; Nurse Practitioner Family; Student in an Organized Health Care Education/Training Program; Surgery; Admitting Provider Internal Medicine; Emergency Provider Student in an Organized Health Care Education/Training Program; PCP Nurse Practitioner Family; Visit Provider Internal Medicine
PROC: 06H03DZ Insertion of Intraluminal Device into Inferior Vena Cava, Percutaneous Approach (ICD-10-PCS; principal; 2025-04-25 13:30)
DX: A41.9 Sepsis, unspecified organism (principal); J96.91 Respiratory failure, unspecified with hypoxia; I50.42 Chronic combined systolic (congestive) and diastolic (congestive) heart failure; C81.90 Hodgkin lymphoma, unspecified, unspecified site; I82.401 Acute embolism and thrombosis of unspecified deep veins of right lower extremity; I48.19 Other persistent atrial fibrillation; I42.9 Cardiomyopathy, unspecified; I49.01 Ventricular fibrillation; I46.2 Cardiac arrest due to underlying cardiac condition; S80.11XA Contusion of right lower leg, initial encounter; D72.829 Elevated white blood cell count, unspecified; E78.2 Mixed hyperlipidemia; E66.01 Morbid (severe) obesity due to excess calories; E87.6 Hypokalemia; F32.A Depression, unspecified; G47.33 Obstructive sleep apnea (adult) (pediatric); G89.29 Other chronic pain; I71.21 Aneurysm of the ascending aorta, without rupture; I11.0 Hypertensive heart disease with heart failure; M54.50 Low back pain, unspecified; K21.9 Gastro-esophageal reflux disease without esophagitis; Z79.84 Long term (current) use of oral hypoglycemic drugs; Z79.82 Long term (current) use of aspirin; Z79.01 Long term (current) use of anticoagulants; Z86.718 Personal history of other venous thrombosis and embolism; Z86.711 Personal history of pulmonary embolism; Z86.73 Personal history of transient ischemic attack (TIA), and cerebral infarction without residual deficits; Z87.891 Personal history of nicotine dependence; Z68.39 Body mass index [BMI] 39.0-39.9, adult; Z92.21 Personal history of antineoplastic chemotherapy
CPT/HCPCS: 36415; 37191; 70450; 71045; 71275; 73701; 74174; 74230; 80048; 80053; 80202; 81001; 82565; 82607; 82728; 82746; 82948; 83540; 83550; 83605; 83615; 83735; 83880; 84100; 84132; 84436; 84439; 84443; 84484; 85025; 85027; 85610; 85730; 87040; 92507; 92523; 92526; 92611; 92950; 93005; 96360; 97110; 97162; 97166; 97530; 99285; A9270; C1769; C1880; C1894; C8929; G0378; J0283; J0692; J1171; J1644; J1650; J2003; J2270; J3360; J3373; J3475; J3480; J7040; J7042; J7050; J7120; Q9957; Q9967